=== PATIENT | female | born 1945 | race Caucasian/White ===

== ENCOUNTER 2016-04-29 11:03 | Emergency (ER) | payer MEDICARE ==
[2016-04-29 11:21] VITALS: BP 155/71
[2016-04-29] MEDS ORDERED: Albuterol 2.5 MG/3 ML NEB.SOL* (0.083%) INH ONE (11:58)
[2016-04-29] MEDS ORDERED: Ipratropium 0.5MG/2.5ML NEB* 0.5 MG/2.5 ML NEB.SOLN INH ONE (11:58)
--- NOTE | 2016-04-29 12:08 | UC ---
Respiratory Complaint HPI - HPI Summary HPI Summary: Chest tightness, wheezing, difficulty breathing, and cough since 3 nights ago. Was seen here 04/04/16, dx with bronchitis and given albuterol inhaler and guaifen AC by this author. Reports she used up the inhaler and cough med. No hx of asthma, COPD, or respiratory hospitalizations. Denies nasal congestion, ST, or fever. - History of Current Complaint Chief Complaint: UCRespiratory Stated Complaint: RESP COMPLAINT Time Seen by Provider: 04/29/16 11:50 Hx Obtained From: Patient ?: No Onset/Duration: Gradual Onset, Lasting Days Timing: Constant Severity Initially: Mild Severity Currently: Moderate Character: Cough: Nonproductive Aggravating Factors: Deep Breaths, Recumbent Position Alleviating Factors: Upright Position Associated Signs And Symptoms: Positive: Dyspnea, Wheezing - Allergies/Home Medications Allergies/Adverse Reactions: Allergies Allergy/AdvReac Type Severity Reaction Status Date / Time Levofloxacin [From Levaquin] Allergy Severe Anaphylatic Verified 04/04/16 18:16 Shock Sulfa Drugs Allergy Intermediate Hives Verified 04/04/16 18:16 Latex Allergy ITCHY Verified 04/04/16 18:16 PIMPLE LIKE RASH Levothyroxine Allergy Rash And Verified 04/04/16 18:16 Itching Home Medications: Home Medications Potassium Citrate (Alkalinizer [Urocit-K 15] 04/29/16 [History] PMH/Surg Hx/FS Hx/Imm Hx Endocrine History Of: Reports: Thyroid Disease Denies: Diabetes Cardiovascular History Of: Reports: Hypertension Respiratory History Of: Reports: Pulmonary Embolism - POST OP AFTER SHOULDER REPLACEMENT 2012 GI/ History Of: Reports: Kidney Stones - BILAT, Renal Disease - Kidney stones x 3 Neurological History Of: Reports: Seizures, Migraine Psychological History Of: Denies: Anxiety, Depression Cancer History Of: Denies: Breast Cancer - Surgical History Surgical History: Yes Surgery Procedure, Year, and Place: Hysterectomy September 2014, 1970 R eye cataract removed, 1989 L eye cataract removed, bilateral knee replacements, R shoulder replacement, 2011 cholecystectomy, plate/screws in R elbow, kidney stone treatment x 3 - Family History Known Family History: Positive: Cardiac Disease, Hypertension - Social History Lives: With Family Alcohol Use: Rare Alcohol Amount: 3-4 PER YEAR Substance Use Type: None Smoking Status (MU): Never Smoked Tobacco Have You Smoked in the Last Year: No - Immunization History Most Recent Influenza Vaccination: fall 2015 Most Recent Tetanus Shot: 2012 Most Recent Pneumonia Vaccination: 08/2011 Review of Systems Constitutional: Negative Skin: Negative Eyes: Negative ENT: Negative Respiratory: Shortness Of Breath - wheezing, Cough Cardiovascular: Negative Gastrointestinal: Negative Genitourinary: Negative Motor: Negative Neurovascular: Negative Musculoskeletal: Negative Neurological: Negative Psychological: Negative All Other Systems Reviewed And Are Negative: Yes Physical Exam Triage Information Reviewed: Yes Appearance: No Pain Distress, Obese Vital Signs: Initial Vital Signs Temp 98.4 F 04/29/16 11:18 Pulse 73 04/29/16 11:18 Resp 18 04/29/16 11:18 BP 155/71 04/29/16 11:18 Pulse Ox 98 04/29/16 11:18 Vital Signs Reviewed: Yes Eye Exam: Normal Eyes: Positive: Conjunctiva Clear ENT Exam: Normal ENT: Positive: Normal ENT inspection, Hearing grossly normal, Pharynx normal, TMs normal Dental Exam: Normal Neck exam: Normal Neck: Positive: Supple, Nontender, No Lymphadenopathy Respiratory: Positive: Respiratory distress - mild, worsened with exertion, Wheezing Cardiovascular Exam: Normal Cardiovascular: Positive: RRR, No Murmur Musculoskeletal Exam: Normal Neurological Exam: Normal Psychological Exam: Normal Skin Exam: Normal UC Diagnostic Evaluation - Laboratory O2 Sat by Pulse Oximetry: 98 Re-Evaluation - Re-Evaluation First Eval Re-Evaluation Time: 12:26 Change: Improved - wheezing diminished, improved air movement, pt reports some relief. Respiratory Course/Dx - Differential Dx/Diagnosis Provider Diagnoses: bronchospasm Discharge - Discharge Plan Condition: Stable Disposition: HOME Prescriptions: Albuterol HFA INHALER* [Ventolin HFA Inhaler*] 1 - 2 puff INH Q4H PRN #1 mdi PRN Reason: wheeze, cough Fluticasone HFA 110 mcg(NF) [Flovent HFA 110 mcg(NF)] 2 puff INH BID #2 mdi Guaifenesin-Codeine [Guaiatussin AC] 5 - 10 ml PO Q6H #120 ml MDD 40mL predniSONE TAB* [Deltasone TAB*] 50 mg PO DAILY #5 tab Patient Education Materials: Bronchospasm (ED) Referrals: Popeye Rojo MD [Primary Care Provider] - 1 Week Additional Instructions: Use the albuterol as needed, but keep using the flovent twice daily until you see your primary care provider (he may keep you on it for 3-4 weeks). Come back if you are having worsening breathing symptoms. Call or return if you develop increasing fever, shortness of breath, chest pain , bloody sputum, or otherwise worsen. If you have not improved at all after several days, contact your primary care physician or return here. INHALED BRONCHODILATORS: You have received a prescription for an inhaled bronchodilator -- a medication which stimulates the airways in the lung to dilate. This improves the flow of air in asthma, bronchitis, and emphysema. These medicines have some similarity to adrenaline, and can cause similar side effects: shakiness, racing heart, and a sense of nervousness. These side effects can be reduced with the use of a spacer and usually decrease with time. Use 1-2 puffs up to every 4 hours as needed for wheezing or tightness in your chest. It may be helpful to use preventatively, such as before bedtime or before going outside into cold air. IF YOU FIND THAT YOU ARE CONSISTENTLY NEEDING THE INHALER MORE THAN 6 TIMES PER DAY, PLEASE CALL OR RETURN FOR FURTHER EVALUATION. COUGH-SUPPRESSANT & EXPECTORANT MEDICATION FOR SLEEPING ONLY: You are to use a cough medication as needed for relief of NIGHTTIME/ BEDTIME symptoms. This medicine is a combination of an expectorant (to make the mucous thinner and more easily "coughed up") and a cough suppressant (to reduce the frequency of coughing). The cough-suppressant medicine is related to narcotics. You may experience mild nausea and sleepiness. Some patients who are very sensitive to narcotics may have stomach pain from this medicine. Taking the medicine with food reduces these side effects. Do not drive or work with machinery until you know how this medicine affects you. The expectorant should have no side effects. Call your doctor if you develop shortness of breath, hives, rash, itching, lightheadedness, or severe nausea and vomiting. CORTICOSTEROID MEDICATION: You have been given a medicine of the cortisone class. This medication is used to control inflammation or allergy. It is usually only given for a short period of time, until the acute process subsides. There are usually no side effects from short-term use of cortisone-like medications. Some persons feel an increased sense of well-being and are not sleepy at bedtime. Long-term use of cortisone medications is best avoided, unless required for a severe condition. If your condition does not remit, or relapses after the course of corticosteroid medication, you should consult your physician. Contact the physician if you develop lightheadedness, black or tarry stools , swelling of the legs, or significant rapid change in weight.
== END 2016-04-29 12:36 | disposition home or self-care (01) ==
LOC: UCEAST 11:03
DX: J98.01 Acute bronchospasm (principal); Z88.1 Allergy status to other antibiotic agents; Z88.2 Allergy status to sulfonamides; Z88.8 Allergy status to other drugs, medicaments and biological substances
CPT/HCPCS: 99212; G0463; J7644

== ENCOUNTER 2016-05-03 16:43 | Emergency (ER) | payer MEDICARE ==
[2016-05-03 17:09] VITALS: BP 190/100
[2016-05-03] MEDS ORDERED: Albuterol 2.5 MG/3 ML NEB.SOL* (0.083%) INH ONE (17:40)
[2016-05-03] MEDS ORDERED: Ipratropium 0.5MG/2.5ML NEB* 0.5 MG/2.5 ML NEB.SOLN INH ONE (17:40)
--- NOTE | 2016-05-03 17:47 | RAD ---
INDICATION: Cough and wheezing COMPARISON: Chest x-ray August 18, 2012 TECHNIQUE: PA and lateral dual-energy views were obtained. FINDINGS: Bones/Soft Tissues: There are no acute bony findings. There is kyphosis. Cardiomediastinal: The cardiomediastinal silhouette is normal. Lungs: There are no infiltrates. Pleura: There are no pleural effusions. Other: None IMPRESSION: NO ACTIVE DISEASE.
--- NOTE | 2016-05-03 18:39 | UC ---
Respiratory Complaint HPI - HPI Summary HPI Summary: 70 yo female with cough/dyspnea x about 4 weeks no improvement with MDI/steroids/had round of antibiotics late DEC hx bronchitis hx PE - History of Current Complaint Chief Complaint: UCRespiratory Stated Complaint: CHEST CONGESTION Time Seen by Provider: 05/03/16 17:17 Hx Obtained From: Patient Onset/Duration: Gradual Onset, Lasting Weeks Timing: Constant Severity Initially: Mild Severity Currently: Moderate Pain Intensity: 4 Pain Scale Used: 0-10 Numeric Character: Cough: Nonproductive Aggravating Factors: Nothing Alleviating Factors: Nothing Associated Signs And Symptoms: Positive: Wheezing, Edema - Risk Factors Pulmonary Embolism Risk Factors: Previous PE - Allergies/Home Medications Allergies/Adverse Reactions: Allergies Allergy/AdvReac Type Severity Reaction Status Date / Time Levofloxacin [From Levaquin] Allergy Severe Anaphylatic Verified 04/04/16 18:16 Shock Sulfa Drugs Allergy Intermediate Hives Verified 04/04/16 18:16 Latex Allergy ITCHY Verified 04/04/16 18:16 PIMPLE LIKE RASH Levothyroxine Allergy Rash And Verified 04/04/16 18:16 Itching PMH/Surg Hx/FS Hx/Imm Hx Endocrine History Of: Reports: Thyroid Disease Denies: Diabetes Cardiovascular History Of: Reports: Hypertension Denies: Cardiac Disorders Respiratory History Of: Reports: Bronchitis, Pulmonary Embolism - POST OP AFTER SHOULDER REPLACEMENT 2012 Denies: COPD, Asthma GI/ History Of: Reports: Kidney Stones - BILAT, Renal Disease - Kidney stones x 3 Denies: Ulcer Neurological History Of: Reports: Seizures, Migraine Psychological History Of: Denies: Anxiety, Depression Cancer History Of: Denies: Breast Cancer - Surgical History Surgical History: Yes Surgery Procedure, Year, and Place: Hysterectomy September 2014, 1970 R eye cataract removed, 1989 L eye cataract removed, bilateral knee replacements, R shoulder replacement, 2011 cholecystectomy, plate/screws in R elbow, kidney stone treatment x 3 - Family History Known Family History: Positive: Cardiac Disease, Hypertension - Social History Alcohol Use: Rare Alcohol Amount: 3-4 PER YEAR Substance Use Type: None Smoking Status (MU): Never Smoked Tobacco Have You Smoked in the Last Year: No - Immunization History Most Recent Influenza Vaccination: fall 2015 Most Recent Tetanus Shot: 2012 Most Recent Pneumonia Vaccination: 08/2011 Review of Systems Constitutional: Negative Skin: Negative Eyes: Negative ENT: Negative Respiratory: Shortness Of Breath, Cough Cardiovascular: Negative Gastrointestinal: Negative Genitourinary: Negative Motor: Negative Neurovascular: Negative Musculoskeletal: Negative Neurological: Negative Psychological: Negative All Other Systems Reviewed And Are Negative: Yes Physical Exam Triage Information Reviewed: Yes Appearance: Obese Vital Signs: Initial Vital Signs Temp 98.1 F 05/03/16 17:03 Pulse 83 05/03/16 17:03 Resp 24 05/03/16 17:03 BP 190/100 05/03/16 17:03 Pulse Ox 97 05/03/16 17:03 Vital Signs Reviewed: Yes Eyes: Positive: Conjunctiva Clear ENT: Positive: Hearing grossly normal. Negative: Nasal congestion, Nasal drainage, Tonsillar exudate, Trismus, Muffled/hoarse voice Neck: Positive: Supple Respiratory: Positive: Respiratory distress, Wheezing Cardiovascular: Positive: RRR, No Murmur Musculoskeletal: Positive: Edema @ - r>l Neurological: Positive: Alert Psychological Exam: Normal UC Diagnostic Evaluation - Laboratory O2 Sat by Pulse Oximetry: 97 - normal - EKG Cardiac Rate: NL Cardiac Rhythm: Sinus: Normal Ectopy: None ST Segment: Non-Specific Respiratory Course/Dx - Course Course Of Treatment: pt unchanged after neb- she refuses to go to the ER for further evaluation. she is aware that she may have a PE despite being anticoagulated. She is sure she will get well with antibiotics. declines further nebs and steroids - Differential Dx/Diagnosis Provider Diagnoses: Dyspnea of uncertain cause. left AMA Discharge - Discharge Plan Condition: Guarded Disposition: AGAINST MEDICAL ADVICE Prescriptions: Amoxicillin/Clavulanate TAB* [Augmentin TAB 875*] 875 mg PO BID #20 tab Patient Education Materials: Dyspnea (ED) Referrals: Popeye Rojo MD [Primary Care Provider] - As Soon As Possible Additional Instructions: to ER for worsening symptoms
[2016-05-03] MEDS ORDERED: Amoxicillin/Clavulanate TAB* 875 MG PO ONE (18:48)
== END 2016-05-03 19:07 | disposition left against medical advice (07) ==
LOC: UCEAST 16:43
DX: R06.00 Dyspnea, unspecified (principal); R05 Cough; Z88.2 Allergy status to sulfonamides; Z88.8 Allergy status to other drugs, medicaments and biological substances
CPT/HCPCS: 71020; 93005; 99213; A9270-GY; G0463; J7644

== ENCOUNTER 2016-05-05 11:24 | Observation (INO) | payer MEDICARE ==
[2016-05-05 11:56] LABS: Hematocrit 42 % (35-47); Hemoglobin 13.8 g/dl (12.0-16.0); Mean Corpuscular HGB Conc 33 g/dl (31-36); Mean Corpuscular Hemoglobin 29 pg (27-31); Mean Corpuscular Volume 89 fL (80-97); Mean Platelet Volume 9 um3 (7.4-10.4); Red Blood Count 4.73 10^6/ul (4.0-5.4); Red Cell Distribution Width 15 % (10.5-15); White Blood Count 7.3 10^3/ul (3.5-10.8)
[2016-05-05] MEDS ORDERED: Albuterol/Ipratropium NEB.SOL* Albuterol 2.5 MG/Ipratropium 0.5 MG 3 ML INH ONE ×2 (11:56→12:43)
[2016-05-05 12:19] LABS: Albumin 3.6 g/dL (3.2-5.2); BUN/Creatinine Ratio 24.5 (8-20); Calcium 8.8 mg/dL (8.6-10.3); EGFR African American 72.4 (>60); EGFR Non-African American 56.3 (>60); Globulin 3.1 g/dL (2-4); Potassium 3.3 mmol/L (3.5-5.0); Total Bilirubin 0.5 mg/dL (0.2-1.0); Total Protein 6.7 g/dL (6.4-8.9)
[2016-05-05] MEDS ORDERED: NS 0.9% 1000 ML* 1,000 ML IV ONE (12:45)
[2016-05-05 12:54] LABS: C Reactive Protein 8.9 mg/L (< 5.00)
[2016-05-05 13:04] LABS: Magnesium 1.9 mg/dL (1.9-2.7)
--- NOTE | 2016-05-05 13:12 | ED ---
Mike Maki Claudia, scribed for Sonia Wyatt MD on 05/05/16 at 1200 . Respiratory - HPI Summary HPI Summary: 70 year old female presents to the ED with respiratory distress. Pt notes Sx gradual worsening over the past few weeks. She was Dx with bronchitis by [facility] in Mar 2016 and has been there twice since then with a Dx of inflammation of the lungs. PT has taken prednisone and is currently taking augmentin and an inhaler for Sx with no change in Sx. Pt notes associated Sx as respiratory distress, productive cough( with blood sputum), chest tightness, but denies any abd pain, N/V/D. Pt reports taking her RX for HTN this am. - History of Current Complaint Stated Complaint: RESP DISTRESS Time Seen by Provider: 05/05/16 11:29 Hx Obtained From: Patient Onset/Duration: Gradual Onset, Worse Since - past few weeks Timing: Constant Character: Wheezing, Cough (Productive), Dyspnea at Rest Sputum Amount: Small Sputum Color: Red (Blood) Associated Signs and Symptoms: SOB, Chest Pain, Wheezing, Dyspnea - Allergy/Home Medications Allergies/Adverse Reactions: Allergies Allergy/AdvReac Type Severity Reaction Status Date / Time Levofloxacin [From Levaquin] Allergy Severe Anaphylatic Verified 04/04/16 18:16 Shock Sulfa Drugs Allergy Intermediate Hives Verified 04/04/16 18:16 Latex Allergy ITCHY Verified 04/04/16 18:16 PIMPLE LIKE RASH Levothyroxine Allergy Rash And Verified 04/04/16 18:16 Itching PMH/Surg Hx/FS Hx/Imm Hx Previously Healthy: Yes Endocrine/Hematology History: Reports: Hx Thyroid Disease Denies: Hx Diabetes Cardiovascular History: Reports: Hx Coronary Artery Disease, Hx Hypercholesterolemia, Hx Hypertension, Hx Peripheral Vascular Disease, Other Cardiovascular Problems/Disorders - cardiac cath Respiratory History: Reports: Hx Pulmonary Embolism - POST OP AFTER SHOULDER REPLACEMENT 2012 Denies: Hx Asthma, Hx Chronic Obstructive Pulmonary Disease (COPD) GI History: Denies: Hx Ulcer, Other GI Disorders History: Reports: Hx Kidney Infection, Hx Kidney Stones - BILAT, Hx Renal Disease - Kidney stones x 3, Other Problems/Disorders - Kidney stones July 2011 Musculoskeletal History: Reports: Hx Arthritis, Other Musculoskeletal History - Bilateral knee replacements, R shoulder replacement, fractured elbow Sensory History: Reports: Hx Cataracts, Hx Contacts or Glasses, Hx Glaucoma, Hx Legally Blind, Hx Vision Problem - Pt is legally blind, Hx Hearing Aid, Hx Hearing Problem, Other Sensory Impairments Opthamlomology History: Reports: Hx Cataracts, Hx Contacts or Glasses, Hx Glaucoma, Hx Legally Blind, Hx Vision Problem - Pt is legally blind, Other Sensory Impairments Neurological History: Reports: Hx Migraine, Hx Seizures, Other Neuro Impairments /Disorders - Hx seizures, none recently Psychiatric History: Denies: Hx Anxiety, Hx Depression - Cancer History Hx Chemotherapy: No Hx Radiation Therapy: No - Surgical History Surgery Procedure, Year, and Place: Hysterectomy September 2014, 1970 R eye cataract removed, 1989 L eye cataract removed, bilateral knee replacements, R shoulder replacement, 2011 cholecystectomy, plate/screws in R elbow, kidney stone treatment x 3 Hx Anesthesia Reactions: Yes - GFDS Infectious Disease History: Denies: Hx Hepatitis, Hx Human Immunodeficiency Virus (HIV), History Other Infectious Disease, Traveled Outside the [place] in Last 30 Days - Family History Known Family History: Positive: Cardiac Disease, Hypertension - Social History Occupation: Retired Lives: With Family Alcohol Use: Rare Alcohol Amount: 3-4 PER YEAR Substance Use Type: Reports: None Hx Tobacco Use: No Smoking Status (MU): Never Smoked Tobacco Have You Smoked in the Last Year: No Review of Systems Constitutional: Negative Negative: Fever Eyes: Negative ENT: Negative Positive: Chest Pain - chest pressure bilaterally Positive: Shortness Of Breath, Cough Negative: Abdominal Pain, Vomiting, Diarrhea, Nausea Genitourinary: Negative Musculoskeletal: Negative Skin: Negative Neurological: Negative Psychological: Normal All Other Systems Reviewed And Are Negative: Yes Physical Exam Triage Information Reviewed: Yes Vital Signs On Initial Exam: Initial Vitals Pulse Pulse Ox 84 98 05/05/16 11:37 05/05/16 11:37 Vital Signs Reviewed: Yes Appearance: Positive: Well-Appearing, No Pain Distress Skin: Positive: Warm, Skin Color Reflects Adequate Perfusion, Dry Eyes: Positive: EOMI, ZANDER ENT: Positive: Pharynx normal, TMs normal Neck: Positive: Nontender Respiratory/Lung Sounds: Positive: Wheezes - expiratory wheezes throughout, Other - respiratory distress. Negative: Rales, Rhonchi Cardiovascular: Positive: RRR. Negative: Murmur, Rub Abdomen Description: Positive: Nontender, Soft Bowel Sounds: Positive: Present Musculoskeletal: Positive: Strength/ROM Intact. Negative: Edema Left, Edema Right Neurological: Positive: Sensory/Motor Intact, Alert, Oriented to Person Place, Time, CN Intact II-III Psychiatric: Positive: Affect/Mood Appropriate Diagnostics - Vital Signs Vital Signs Temp Pulse Resp BP Pulse Ox 05/05/16 12:50 147/88 05/05/16 12:00 75 17 99 05/05/16 11:51 98.0 F 87 24 186/67 99 05/05/16 11:39 88 19 186/67 98 05/05/16 11:37 84 98 - Laboratory Lab Results: Lab Results 05/05/16 05/05/16 05/05/16 Range/Units 11:45 11:45 11:45 WBC 7.3 (3.5-10.8) 10^3/ul RBC 4.73 (4.0-5.4) 10^6/ul Hgb 13.8 (12.0-16.0) g/dl Hct 42 (35-47) % MCV 89 (80-97) fL MCH 29 (27-31) pg MCHC 33 (31-36) g/dl RDW 15 (10.5-15) % Plt Count 184 (150-450) 10^3/ul MPV 9 (7.4-10.4) um3 Neut % (Auto) 71.4 (38-83) % Lymph % (Auto) 20.3 L (25-47) % [place] % (Auto) 6.6 (1-9) % Eos % (Auto) 1.3 (0-6) % Baso % (Auto) 0.4 (0-2) % Absolute Neuts (auto) 5.2 (1.5-7.7) 10^3/ul Absolute Lymphs (auto) 1.5 (1.0-4.8) 10^3/ul Absolute Monos (auto) 0.5 (0-0.8) 10^3/ul Absolute Eos (auto) 0.1 (0-0.6) 10^3/ul Absolute Basos (auto) 0 (0-0.2) 10^3/ul Absolute Nucleated RBC 0 10^3/ul Nucleated RBC % 0 Sodium 140 (133-145) mmol/L Potassium 3.3 L (3.5-5.0) mmol/L Chloride 109 (101-111) mmol/L Carbon Dioxide 24 (22-32) mmol/L Anion Gap 7 (2-11) mmol/L BUN 24 (6-24) mg/dL Creatinine 0.98 H (0.51-0.95) mg/dL Est GFR ( Amer) 72.4 (>60) Est GFR (Non-Af Amer) 56.3 (>60) BUN/Creatinine Ratio 24.5 H (8-20) Glucose 164 H (70-100) mg/dL Lactic Acid 1.2 (0.5-2.0) mmol/L Calcium 8.8 (8.6-10.3) mg/dL Magnesium 1.9 (1.9-2.7) mg/dL Total Bilirubin 0.50 (0.2-1.0) mg/dL AST 14 (13-39) U/L ALT 21 (7-52) U/L Alkaline Phosphatase 64 (34-104) U/L Troponin I 0.00 (<0.04) ng/mL C-Reactive Protein 8.90 H (< 5.00) mg/L B-Natriuretic Peptide ( - 100) pg/mL Total Protein 6.7 (6.4-8.9) g/dL Albumin 3.6 (3.2-5.2) g/dL Globulin 3.1 (2-4) g/dL Albumin/Globulin Ratio 1.2 (1-3) 05/05/16 Range/Units 11:45 WBC (3.5-10.8) 10^3/ul RBC (4.0-5.4) 10^6/ul Hgb (12.0-16.0) g/dl Hct (35-47) % MCV (80-97) fL MCH (27-31) pg MCHC (31-36) g/dl RDW (10.5-15) % Plt Count (150-450) 10^3/ul MPV (7.4-10.4) um3 Neut % (Auto) (38-83) % Lymph % (Auto) (25-47) % [place] % (Auto) (1-9) % Eos % (Auto) (0-6) % Baso % (Auto) (0-2) % Absolute Neuts (auto) (1.5-7.7) 10^3/ul Absolute Lymphs (auto) (1.0-4.8) 10^3/ul Absolute Monos (auto) (0-0.8) 10^3/ul Absolute Eos (auto) (0-0.6) 10^3/ul Absolute Basos (auto) (0-0.2) 10^3/ul Absolute Nucleated RBC 10^3/ul Nucleated RBC % Sodium (133-145) mmol/L Potassium (3.5-5.0) mmol/L Chloride (101-111) mmol/L Carbon Dioxide (22-32) mmol/L Anion Gap (2-11) mmol/L BUN (6-24) mg/dL Creatinine (0.51-0.95) mg/dL Est GFR ( Amer) (>60) Est GFR (Non-Af Amer) (>60) BUN/Creatinine Ratio (8-20) Glucose (70-100) mg/dL Lactic Acid (0.5-2.0) mmol/L Calcium (8.6-10.3) mg/dL Magnesium (1.9-2.7) mg/dL Total Bilirubin (0.2-1.0) mg/dL AST (13-39) U/L ALT (7-52) U/L Alkaline Phosphatase (34-104) U/L Troponin I (<0.04) ng/mL C-Reactive Protein (< 5.00) mg/L B-Natriuretic Peptide 78 ( - 100) pg/mL Total Protein (6.4-8.9) g/dL Albumin (3.2-5.2) g/dL Globulin (2-4) g/dL Albumin/Globulin Ratio (1-3) Result Diagrams: 05/05/16 11:45 05/05/16 11:45 Lab Statement: Any lab studies that have been ordered have been reviewed, and results considered in the medical decision making process. - EKG 11:35 Cardiac Rate: NL EKG Rhythm: Sinus Rhythm EKG Interpretation: No ST elevation Disposition - Course Course Of Treatment: 70 yo female with worsening course of sob, labs and xrays normal, PE is in the differential, ddimer is pending but pt can not get a cta today she will be observed by the hospitalists overnight - Diagnoses Provider Diagnoses: Dyspnea - Physician Notifications Discussed Care Of Patient With: Discussed care of patient with Dr. Bryant whom will admit to [facility] Time Discussed With Above Provider: 12:49 Discharge - Discharge Plan Condition: Stable Disposition: ADMITTED TO [facility] Referrals: Popeye Rojo MD [Primary Care Provider] - The documentation as recorded by the Mike whyet Claudia accurately reflects the service I personally performed and the decisions made by me, Sonia Wyatt MD.
--- NOTE | 2016-05-05 14:46 | RAD ---
Indication: Shortness of breath. 2 views of the chest including dual energy PA views demonstrates no mediastinal shift. When compared to previous exam of May 03, 2016 there is mild interstitial prominence is noted. No pleural fluid is identified. This likely represents mild vascular congestion. The heart is at the limits of normal in size. IMPRESSION: Mild vascular congestion without evidence of active cardiopulmonary disease.
[2016-05-05] MEDS ORDERED: Potassium Chlor TAB* 20 MEQ TAB.ER PO ONE (15:26)
[2016-05-05] MEDS ORDERED: Albuterol HFA INHALER* 8 gm MDI INH PRN (15:33)
[2016-05-05] MEDS ORDERED: Albuterol/Ipratropium NEB.SOL* Albuterol 2.5 MG/Ipratropium 0.5 MG 3 ML INH SCH (16:00)
--- NOTE | 2016-05-05 16:03 | RAD ---
Indication: Shortness of breath. CT of the chest performed without IV contrast. Coronal and sagittal reconstructed images were obtained. There is an aberrant right subclavian artery noted. Small mediastinal lymph nodes are noted with AP window lymph nodes measuring up to 11 mm. Precarinal lymph nodes are noted. No hilar adenopathy is noted. The heart is of normal size without evidence of pericardial effusion. The trachea and major bronchi appear patent. Lung deleon demonstrate no evidence of alveolar consolidation. No pleural fluid is identified. No focal nodules identified. The visualized abdominal organs are unremarkable. IMPRESSION: Aberrant right subclavian artery. No evidence of pneumonia is noted. Small mediastinal lymph nodes are noted.
--- NOTE | 2016-05-05 18:02 | PN ---
Hospitalist Progress Note Pt positive for influenza A. Will start Tamiflu.
[2016-05-05] MEDS: Albuterol/Ipratropium NEB.SOL* Albuterol 2.5 MG/Ipratropium 0.5 MG 3 ML INH SCH (19:27)
[2016-05-05] MEDS: Mometasone/Formoter 200/5 MDI INH SCH (19:27)
[2016-05-05] MEDS: Oseltamivir CAP* 75 MG PO SCH (20:35)
[2016-05-05] MEDS ORDERED: Rivaroxaban TAB(*) 20 MG TAB PO SCH (21:00)
[2016-05-05] MEDS: Nystatin TOP POWDER* 15 GM BTL TOPICAL SCH (21:09)
--- NOTE | 2016-05-05 22:30 | HP ---
HISTORY AND PHYSICAL: DATE OF ADMISSION: 05/05/16 PRIMARY CARE PROVIDER: Dr. Popeye Rojo. ATTENDING PHYSICIAN: Dr. Nydia Bryant *(dictated by Lidna Kee NP) CHIEF COMPLAINT: Shortness of breath. HISTORY OF PRESENT ILLNESS: Ms. Zhao is a 70-year-old female with past medical history significant for pulmonary embolism, coronary artery disease, hyperlipidemia, and hypertension, who presents to the emergency room with progressive shortness of breath. The patient states that she initially started not feeling well with a sore throat and cold symptoms on 03/19/16. At the same time, the patient's was also ill. The patient continued to not feel well, presented to the [facility] on 04/04/16, at which time she was diagnosed with acute bronchitis and was started on azithromycin and given albuterol inhaler and started on guaifenesin with codeine. The [facility], at which time she was diagnosed with bronchospasms and was given a Flovent inhaler and albuterol inhaler and continued on guaifenesin with codeine. The patient continued to feel poorly. She has been unable to get into her primary care doctor's office. She was seen [facility] on 05[facility]16 with cough and shortness of breath for approximately a month. She has had no improvement with inhalers, steroids, and a round of antibiotics. At that time, it was felt that the patient had a dyspnea of uncertain cause and the patient left against medical advice after she was referred to the emergency room for evaluation for possible pulmonary embolism. The patient was given a prescription for Augmentin at that time. The patient denies fever, chills. She reports a midsternal chest tightness, a frequent nonproductive cough although she occasionally brings up a small amount of mucus. The patient has shortness of breath that is worse with exertion and lying flat. The patient denies any GI symptoms such as nausea, vomiting, diarrhea. The patient feels that over time, her dyspnea has not improved and in fact is getting worse. Due to concerns, the patient presented to the emergency room today for further evaluation of her symptoms. While in the emergency room, the patient had a chest x-ray showing mild vascular congestion without evidence of active cardiopulmonary disease. The patient received DuoNebs and 1 L of IV normal saline. Due to concern of possible PE, the hospitalists were asked to evaluate the patient for admission to pre-treat her for a CT of her chest. PAST MEDICAL HISTORY: 1. Pulmonary embolism. 2. Coronary artery disease. 3. Hyperlipidemia. 4. Hypertension. 5. Peripheral vascular disease. 6. Kidney stones. 7. Seizure. 8. Migraines. 9. Depression. 10. Type 2 diabetes, diet controlled. 11. Hypothyroidism. 12. 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 13. Hearing impairment. PAST SURGICAL HISTORY: 1. Status post right shoulder surgery. 2. Status post hysterectomy. 3. Status post bilateral cataract extractions. 4. Status post bilateral total knee replacements. 5. Status post multiple cystoscopies and ureteral stent placement. 6. Status post ORIF of her right elbow. 7. Status post cholecystectomy. 8. Status post cardiac catheterization in 2011 without stent placement. HOME MEDICATIONS: Include: 1. Topamax 25 mg oral every morning. 2. Xarelto 20 mg oral daily at bedtime. 3. Potassium citrate 15 mEq oral 3 times daily. 4. Multivitamin 1 tablet oral daily. 5. Lisinopril 5 mg oral every morning. 6. Levothyroxine 25 mcg oral daily. 7. Flovent HFA 2 puffs inhalation twice daily. 8. Bumex 1 mg oral every morning as needed for leg swelling. 9. Alphagan P 0.15% 1 drop to both eyes twice daily. 10. Atorvastatin 20 mg oral every morning. 11. Atenolol 50 mg oral every morning. 12. Aspirin 81 mg oral every morning. 13. Augmentin 875 mg oral twice daily. 16. Albuterol HFA inhaler 1 to 2 puffs inhalation every 4 hours as needed for shortness of breath or wheeze. ALLERGIES: 1. LEVAQUIN - anaphylactic reaction. 2. SULFA. 3. LATEX. 4. LEVOTHYROXINE - cannot tolerate low doses. FAMILY HISTORY: The patient denies any family history of coronary artery disease. The patient's father has a history of diabetes mellitus and leukemia. SOCIAL HISTORY: The patient denies tobacco or recreational drug use. She rarely drinks alcoholic beverages. 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 She is . Her , Bernabe Zhao, will be her surrogate decision maker in the event that she is unable to make decisions for herself. REVIEW OF SYSTEMS: I performed a 14-point review of systems. All the pertinent positives and negatives are mentioned in the history of present illness. The remaining review of systems are negative. PHYSICAL EXAMINATION GENERAL APPEARANCE: The patient is alert, pleasant, appears to be in no acute distress. VITAL SIGNS: Temperature 98.0, heart rate 74, respiratory rate 15, O2 sat 100% , blood pressure 168/78. HEENT: Normocephalic, atraumatic. Pupils are equal and reactive to light. Extraocular movements are intact. NECK: Supple. There is no lymphadenopathy noted. RESPIRATORY: There is no accessory muscle use. The lungs have faint expiratory wheezing anteriorly and scattered rhonchi posteriorly. CARDIOVASCULAR: Regular rate and rhythm. S1, S2 present. There is no murmurs, rubs, or gallops heard. ABDOMEN: Large, soft, and nontender. There are bowel sounds present x4. EXTREMITIES: There is +1 bilateral lower extremity edema. DP and PT pulses are 2+ and symmetric. MUSCULOSKELETAL: There is no clubbing or cyanosis noted. The patient exhibits good strength in all extremities. NEUROLOGICAL: The patient is alert and oriented x4. Cranial nerves II through XII are grossly intact. PSYCHOLOGICAL: The patient is calm and cooperative. SKIN: There is no rashes or abnormalities noted. DIAGNOSTIC STUDIES/LABORATORY DATA: Sodium 140, potassium 3.3, chloride 104, CO2 24, BUN 24, creatinine 0.98, glucose 164. Troponin 0.00. C-reactive protein 8.9. Lactic acid 1.2. White blood cell count 7.3, hemoglobin 13.8, hematocrit 42, and platelet count 184. EKG shows a sinus rhythm with a rate of 83. There is no acute signs of ischemia. This EKG is similar to previous EKG from 05/03/16. Chest x-ray from today. Radiologist's impression: Mild vascular congestion without evidence of active cardiopulmonary disease. IMPRESSION: Ms. Zhao is a 70-year-old female with past medical history significant for pulmonary embolism, coronary artery disease, hypertension, recent bronchitis, and inflammatory airway, who presents to the emergency room with progressive shortness of breath and dyspnea on exertion. She will be admitted as an observation for shortness of breath. ASSESSMENT: 1. Shortness of breath. I suspect this is related to active airway disease. I have placed the patient on [id number] nebulizers. I do not feel that she needs systemic steroids at this time, but we will start her on Dulera for inhaled steroids. We will get a plain chest CT to get a better evaluation to see if the patient possibly has an underlying pneumonia that was not seen on chest x-ray. At this time, the patient is afebrile, has no leukocytosis. We will hold on starting or continuing any antibiotics. We will check a flu swab at this time. The patient will be continued on supplemental oxygen as needed. In the differential is included pulmonary embolism. The patient has a D-dimer of less than 200. We will hold on any further workup as I do not feel that the patient's shortness of breath is related to a pulmonary embolism. 2. Elevated creatinine. The patient's creatinine appears to be at her baseline. 3. Hypokalemia. The patient will receive potassium supplements today. We will check a magnesium and replace if indicated. 4. Hypertension. The patient will be continued on her home lisinopril. 5. Hyperlipidemia. The patient will be continued on her home Lipitor. 6. History of seizures. The patient will be continued on her home Topamax and have seizure precautions. 7. Type 2 diabetes. The patient is diet controlled at home. We will check her fingersticks. At this time, we will just monitor her fingersticks. If her fingersticks are elevated, we will start a lispro sliding scale. 8. Glaucoma. The patient will be continued on her Alphagan eyedrops. 9. History of coronary artery disease. The patient will be continued on her home aspirin, atenolol, and statin. 10. History of pulmonary embolism. The patient will be continued on her home Xarelto. 11. Hypothyroidism. The patient will be continued on her home levothyroxine. 12. Fluids, electrolytes, and nutrition. The patient will be on a heart- healthy, consistent carbohydrate diet. 13. Code status. Full code. 14. DVT prophylaxis. The patient is at highest risk. She will be continued on her home Xarelto. 15. Disposition. Observation for shortness of breath, suspect related to reactive airway. TIME SPENT: The time for this admission was 60 minutes, 35 minutes was spent face- to-face with the patient and discussing medications, past medical history, and the events leading up to her arrival today and performing a physical examination. The case has been reviewed with the attending, Dr. Bryant, who agrees with the plan of care. Reviewed by REJI GOMEZ-Leonidas 05/08/161958 CC: Popeye Rojo MD* [id number]/[facility] #: [id number] MTDD
[2016-05-05] MEDS: CMCS:Brimonidine P 0.15%(NF) OPH SOL 5 ML BTL BOTH EYES SCH (23:32)
[2016-05-06] MEDS: Albuterol/Ipratropium NEB.SOL* Albuterol 2.5 MG/Ipratropium 0.5 MG 3 ML INH SCH ×3 (01:08→14:01)
[2016-05-06] MEDS ORDERED: Benzonatate CAP* 100 MG PO PRN (04:15)
[2016-05-06] MEDS ORDERED: Levothyroxine TAB* 25 MCG TAB PO SCH (06:00)
[2016-05-06 06:36] LABS: BUN/Creatinine Ratio 21.7 (8-20); Calcium 8.7 mg/dL (8.6-10.3); EGFR African American 77.8 (>60); EGFR Non-African American 60.5 (>60); Potassium 3.5 mmol/L (3.5-5.0)
[2016-05-06] MEDS: Mometasone/Formoter 200/5 MDI INH SCH (07:16)
[2016-05-06] MEDS ORDERED: Aspirin EC Low Dose* 81 MG TAB.EC PO SCH (09:00)
[2016-05-06] MEDS ORDERED: Topiramate TAB(*) 25 MG PO SCH (09:00)
[2016-05-06] MEDS ORDERED: Multivitamins/Minerals TAB PO SCH (09:00)
[2016-05-06] MEDS ORDERED: Atenolol TAB* 50 MG PO SCH (09:00)
[2016-05-06] MEDS ORDERED: Lisinopril TAB* 5 MG PO SCH (09:00)
[2016-05-06] MEDS ORDERED: Atorvastatin* 20 MG TAB PO SCH (09:00)
[2016-05-06] MEDS: Oseltamivir CAP* 75 MG PO SCH (10:19)
[2016-05-06] MEDS ORDERED: Acetaminophen TAB* 325 MG PO PRN (11:16)
[2016-05-06 11:37] VITALS: BP 154/79
[2016-05-06] MEDS: Nystatin TOP POWDER* 15 GM BTL TOPICAL SCH (11:54)
[2016-05-06] MEDS ORDERED: Sodium Chloride 2% OPTH.SOL* 15 ML BTL BOTH EYES SCH (12:30)
[2016-05-06] MEDS: CMCS:Brimonidine P 0.15%(NF) OPH SOL 5 ML BTL BOTH EYES SCH (14:36)
--- NOTE | 2016-05-06 15:08 | PN ---
Subjective Date of Service: 05/06/16 Interval History: patient reports she feels much much better. Denies SOB. continues to have a productive cough. No fever or chills. Reports good appetite. No N/V/D. Objective Active Medications: Acetaminophen (Tylenol Tab*) 650 mg PO Q4H PRN PRN Reason: pain/fever Last Admin: 05/06/16 11:54 Dose: 650 mg Albuterol (Ventolin Hfa Inhaler*) 2 puff INH Q4H PRN PRN Reason: wheeze, cough Albuterol/Ipratropium (Duoneb Neb.Ale*) 1 neb INH 0100,0700,1300,1900 [facility] Last Admin: 05/06/16 14:01 Dose: 1 neb Aspirin (Aspirin Ec Low Dose*) 81 mg PO [facility] Last Admin: 05/06/16 10:19 Dose: 81 mg Atenolol (Tenormin Tab*) 50 mg PO [facility] Last Admin: 05/06/16 10:19 Dose: 50 mg Atorvastatin Calcium (Lipitor*) 20 mg PO [facility] Last Admin: 05/06/16 10:19 Dose: 20 mg Benzonatate (Tessalon Cap*) 200 mg PO TID PRN PRN Reason: COUGH Last Admin: 05/06/16 05:37 Dose: 200 mg Brimonidine Tartrate (Alphagan P 0.15%(Nf)) 1 drop BOTH EYES BID [facility] Last Admin: 05/06/16 14:36 Dose: Not Given Levothyroxine Sodium (Synthroid Tab*) 25 mcg PO 0600 [facility] Last Admin: 05/06/16 05:37 Dose: 25 mcg Lisinopril (Prinivil Tab*) 5 mg PO [facility] Last Admin: 05/06/16 10:19 Dose: 5 mg Mometasone Furoate/Formoterol Fumar (Dulera 200/5 Mdi*) 2 puff INH BID [facility] Last Admin: 05/06/16 07:16 Dose: 2 puff Multivitamins/Minerals (Theragran/Minerals Tab*) 1 tab [facility] Last Admin: 05/06/16 10:19 Dose: 1 tab Nystatin (Nystatin Top Powder*) 1 applic TOPICAL BID [facility] Last Admin: 05/06/16 11:54 Dose: 1 applic Oseltamivir Phosphate (Tamiflu Cap*) 75 mg PO BID [facility] Stop: 05/10/16 09:01 Last Admin: 05/06/16 10:19 Dose: 75 mg Rivaroxaban (Xarelto (*)) 20 mg PO BEDTIME [facility] Last Admin: 05/05/16 20:34 Dose: 20 mg Sodium Chloride (Hypertonic) (Karolnia 128 Opth 2% Ale*) 1 drop BOTH EYES Q4H [facility] Last Admin: 05/06/16 14:38 Dose: 1 drop Topiramate (Topamax(*)) 25 mg PO QAM [facility] Last Admin: 05/06/16 10:19 Dose: 25 mg Vital Signs 05/05/16 05/05/16 05/05/16 16:00 16:16 16:59 Temperature 98.0 F Pulse Rate 71 73 70 Respiratory 16 15 18 Rate Blood Pressure 168/78 175/76 (mmHg) O2 Sat by Pulse 100 100 100 Oximetry 05/05/16 05/05/16 05/05/16 17:00 17:11 17:41 Temperature 98.0 F Pulse Rate 70 Respiratory 18 18 Rate Blood Pressure 175/76 (mmHg) O2 Sat by Pulse 100 100 Oximetry 05/05/16 05/05/16 05/05/16 20:00 20:51 20:53 Temperature Pulse Rate 75 Respiratory 18 Rate Blood Pressure (mmHg) O2 Sat by Pulse 98 98 Oximetry 05/06/16 05/06/16 05/06/16 00:06 01:08 03:43 Temperature 98.1 F 98.1 F Pulse Rate 81 89 91 Respiratory 20 19 Rate Blood Pressure 143/63 138/62 (mmHg) O2 Sat by Pulse 97 96 97 Oximetry 05/06/16 05/06/16 05/06/16 07:21 08:00 08:03 Temperature 97.9 F Pulse Rate 83 96 Respiratory 16 18 Rate Blood Pressure 168/75 (mmHg) O2 Sat by Pulse 98 96 Oximetry 05/06/16 05/06/16 11:03 14:03 Temperature 97.9 F Pulse Rate 77 79 Respiratory 16 Rate Blood Pressure 154/79 (mmHg) O2 Sat by Pulse 98 96 Oximetry Oxygen Devices in Use Now: None Appearance: morbidly obese female sitting up in a chair in NAD A+O x3 Eyes: No Scleral Icterus, PERRLA Ears/Nose/Mouth/Throat: NL Teeth, Lips, Gums, Mucous Membranes Moist Neck: NL Appearance and Movements; NL JVP, Trachea Midline Respiratory: Symmetrical Chest Expansion and Respiratory Effort, - - mild scattered rhonchi Cardiovascular: NL Sounds; No Murmurs; No JVD, RRR, - - b/l 1+ edema Abdominal: NL Sounds; No Tenderness; No Distention, - - obese Extremities: No Clubbing, Cyanosis Skin: - - B/L LE erythema appears to be vascular changes Neurological: Alert and Oriented x 3, NL Sensation, NL Muscle Strength and Tone Lines/Tubes/Other Access: Clean, Dry and Intact Peripheral IV Nutrition: Taking PO's Result Diagrams: 05/05/16 11:45 05/06/16 05:45 Additional Lab and Data: Lab Results 05/05/16 05/05/16 05/05/16 Range/Units 11:45 11:45 11:45 WBC 7.3 (3.5-10.8) 10^3/ul RBC 4.73 (4.0-5.4) 10^6/ul Hgb 13.8 (12.0-16.0) g/dl Hct 42 (35-47) % MCV 89 (80-97) fL MCH 29 (27-31) pg MCHC 33 (31-36) g/dl RDW 15 (10.5-15) % Plt Count 184 (150-450) 10^3/ul MPV 9 (7.4-10.4) um3 Neut % (Auto) 71.4 (38-83) % Lymph % (Auto) 20.3 L (25-47) % Logan % (Auto) 6.6 (1-9) % Eos % (Auto) 1.3 (0-6) % Baso % (Auto) 0.4 (0-2) % Absolute Neuts (auto) 5.2 (1.5-7.7) 10^3/ul Absolute Lymphs (auto) 1.5 (1.0-4.8) 10^3/ul Absolute Monos (auto) 0.5 (0-0.8) 10^3/ul Absolute Eos (auto) 0.1 (0-0.6) 10^3/ul Absolute Basos (auto) 0 (0-0.2) 10^3/ul Absolute Nucleated RBC 0 10^3/ul Nucleated RBC % 0 Sodium 140 (133-145) mmol/L Potassium 3.3 L (3.5-5.0) mmol/L Chloride 109 (101-111) mmol/L Carbon Dioxide 24 (22-32) mmol/L Anion Gap 7 (2-11) mmol/L BUN 24 (6-24) mg/dL Creatinine 0.98 H (0.51-0.95) mg/dL Est GFR ( Amer) 72.4 (>60) Est GFR (Non-Af Amer) 56.3 (>60) BUN/Creatinine Ratio 24.5 H (8-20) Glucose 164 H (70-100) mg/dL Lactic Acid 1.2 (0.5-2.0) mmol/L Calcium 8.8 (8.6-10.3) mg/dL Magnesium 1.9 (1.9-2.7) mg/dL Total Bilirubin 0.50 (0.2-1.0) mg/dL AST 14 (13-39) U/L ALT 21 (7-52) U/L Alkaline Phosphatase 64 (34-104) U/L Troponin I 0.00 (<0.04) ng/mL C-Reactive Protein 8.90 H (< 5.00) mg/L B-Natriuretic Peptide ( - 100) pg/mL Total Protein 6.7 (6.4-8.9) g/dL Albumin 3.6 (3.2-5.2) g/dL Globulin 3.1 (2-4) g/dL Albumin/Globulin Ratio 1.2 (1-3) 05/05/16 Range/Units 11:45 WBC (3.5-10.8) 10^3/ul RBC (4.0-5.4) 10^6/ul Hgb (12.0-16.0) g/dl Hct (35-47) % MCV (80-97) fL MCH (27-31) pg MCHC (31-36) g/dl RDW (10.5-15) % Plt Count (150-450) 10^3/ul MPV (7.4-10.4) um3 Neut % (Auto) (38-83) % Lymph % (Auto) (25-47) % Logan % (Auto) (1-9) % Eos % (Auto) (0-6) % Baso % (Auto) (0-2) % Absolute Neuts (auto) (1.5-7.7) 10^3/ul Absolute Lymphs (auto) (1.0-4.8) 10^3/ul Absolute Monos (auto) (0-0.8) 10^3/ul Absolute Eos (auto) (0-0.6) 10^3/ul Absolute Basos (auto) (0-0.2) 10^3/ul Absolute Nucleated RBC 10^3/ul Nucleated RBC % Sodium (133-145) mmol/L Potassium (3.5-5.0) mmol/L Chloride (101-111) mmol/L Carbon Dioxide (22-32) mmol/L Anion Gap (2-11) mmol/L BUN (6-24) mg/dL Creatinine (0.51-0.95) mg/dL Est GFR ( Amer) (>60) Est GFR (Non-Af Amer) (>60) BUN/Creatinine Ratio (8-20) Glucose (70-100) mg/dL Lactic Acid (0.5-2.0) mmol/L Calcium (8.6-10.3) mg/dL Magnesium (1.9-2.7) mg/dL Total Bilirubin (0.2-1.0) mg/dL AST (13-39) U/L ALT (7-52) U/L Alkaline Phosphatase (34-104) U/L Troponin I (<0.04) ng/mL C-Reactive Protein (< 5.00) mg/L B-Natriuretic Peptide 78 ( - 100) pg/mL Total Protein (6.4-8.9) g/dL Albumin (3.2-5.2) g/dL Globulin (2-4) g/dL Albumin/Globulin Ratio (1-3) Microbiology and Other Data: Microbiology 05/05/16 16:15 Influenza Types A,B Antigen (TUAN) - Final Nasal Specimen received for Influenza A/B Molecular testing Assess/Plan/Problems-Billing Assessment: 70 yo female with PMH of morbid obesity, hx of PE on xarelto, CAD, HTN, who presents to the emergency department 05/05 with c/o SOB foun dto have Influenza A and reactive airway disease - Patient Problems (1) Influenza A Comment: - off oxygen. afebrile. No leukocytosis - Continue Tamiflu for 10 doses (2) Reactive airway disease Comment: - mild, continue Dulera (3) Diabetes Comment: Diet controlled. No coeverage needed at this point. (4) HTN (hypertension) Comment: continue lisinopril, atenolol. (5) History of pulmonary embolus (PE) Comment: DDimer negative xarelto (6) Hypothyroidism Comment: Continue synthroid. (allergy to levothyroxine) (7) ANDREW (acute kidney injury) Comment: - secondary to dehydration. resolved with IVFs (8) Seizure disorder Comment: no seizure activity. continue home topomax (9) Full code status Status and Disposition: OBV. Home at discharge - stable for DC home if patient maintains O2 sat while ambulating
--- NOTE | 2016-05-07 07:29 | DS ---
DISCHARGE SUMMARY: DATE OF ADMISSION: 05/05/16 DATE OF DISCHARGE: 05/06/16 ATTENDING PHYSICIAN: Dr. Fuller *(report dictated by Nayla Nava NP). PRIMARY CARE PROVIDER: Dr. Rojo. HOSPITAL STATUS: Observation. DISCHARGE DIAGNOSES: 1. Influenza A. 2. Reactive airway disease. 3. Acute kidney injury secondary to dehydration, resolved with IV fluids. SECONDARY DIAGNOSES: 1. Morbid obesity. 2. History of pulmonary embolism, on Xarelto. 3. Coronary artery disease. 4. Hyperlipidemia. 5. Hypertension. 6. Peripheral vascular disease. 7. History of kidney stones. 8. Seizure disorder. 9. History of migraines. 10. Depression. 11. Type 2 diabetes, diet controlled. 12. Hypothyroidism. 13. 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 14. Hearing impairment. DISCHARGE MEDICATIONS: 1. Sodium chloride 2% ophth one drop both eyes q.4 hours. 2. Alphagan 0.15% one drop both eyes daily. 3. Albuterol HFA inhaler one to two puffs INH q.4 hours p.r.n. shortness of breath. 4. Lisinopril 5 mg p.o. q.a.m. 5. Synthroid 25 mcg p.o. q.a.m. 6. Flovent HFA 110 mcg two puffs INH b.i.d. 7. Bumex 1 mg p.o. q.a.m. p.r.n. 8. Lipitor 20 mg p.o. q.a.m. 9. Atenolol 50 mg p.o. q.a.m. 10. Aspirin EC low dose 81 mg p.o. daily. 11. Topamax 25 mg p.o. q.a.m. 12. Xarelto 20 mg p.o. at bedtime. 13. Potassium citrate 15 mEq p.o. t.i.d. 14. Multivitamin with minerals one tab p.o. q.a.m. NEW MEDICATIONS: 1. Tamiflu 75 mg p.o. b.i.d. x8 more doses, to continue 10 doses. 2. Dulera 200/5 MDI two puffs INH b.i.d. for reactive airway disease and for cough. HISTORY OF PRESENT ILLNESS AND HOSPITAL COURSE: Please see history and physical by Linda El NP, for full admission details, but in summary, this is a 70-year-old female who presented to the emergency department on 05/05/16 with a report of shortness of breath, reporting she has had upper respiratory symptoms for approximately a little over a month. The patient was seen at her primary care doctor's office as well as urgent care, diagnosed with acute bronchitis, finished her course of azithromycin, was seen again in urgent care, was diagnosed with bronchospasms and given a Flovent inhaler and albuterol inhaler, but the patient continued to feel poorly. The patient reports that her symptoms would wax and wane and she had cough and shortness of breath for approximately a month. On evaluation in the emergency department, she tested positive for influenza A. She had no leukocytosis on admission, CRP of 8.90, known to have mildly elevated creatinine of 0.98. The patient was admitted to the hospitalist service for influenza A with reactive airway disease as the patient was requiring oxygen therapy on admission. The patient was only requiring 2 L nasal cannula and was weaned off the oxygen by this morning. The patient did have a negative D-dimer. The patient was treated with nebulizers, Dulera and started on Tamiflu. This morning on evaluation, the patient reports she feels "much much better" and would like to go home. The patient was ambulated around the unit multiple times, maintaining her O2 sats between 93% and 98%. I checked the patient myself after ambulation before discharge and she was 97% on room air. The patient continues to have a cough, but no fevers or chills. Reports good appetite. No nausea, vomiting, diarrhea. I do not believe the patient requires antibiotics at this time. She was encouraged to continue the Dulera inhaler while she has a cough. The patient remained hemodynamically stable throughout hospitalization as well as no fevers noted. DISCHARGE PLAN: 1. Stable for discharge to home. Her will be driving her home. 2. The patient already has a previously scheduled appointment with Dr. Rojo this , which she was encouraged to keep. 3. The patient was instructed to return to the emergency department if she had any worsening or concerning symptoms. 4. I encouraged to rest, increase her fluid intake. TIME SPENT: Approximately 60 minutes was spent on this discharge. NAYLA NAVA NP CC: Dr. Rojo * [id number]/[facility] #: [id number] [facility]ENTER[facility]
== END 2016-05-06 17:15 | disposition home or self-care (01) ==
LOC: ED 11:24 → MED 15:22
PROVIDERS: ADMIT Hospitalist; ATTEND Internal Medicine
DX: J09.X2 Influenza due to identified novel influenza A virus with other respiratory manifestations (principal); J45.909 Unspecified asthma, uncomplicated; N17.9 Acute kidney failure, unspecified; E87.6 Hypokalemia; E66.01 Morbid (severe) obesity due to excess calories; Z86.711 Personal history of pulmonary embolism; Z79.01 Long term (current) use of anticoagulants; I25.10 Atherosclerotic heart disease of native coronary artery without angina pectoris; I10 Essential (primary) hypertension; E78.5 Hyperlipidemia, unspecified; I73.9 Peripheral vascular disease, unspecified; G40.909 Epilepsy, unspecified, not intractable, without status epilepticus; E11.9 Type 2 diabetes mellitus without complications; E03.9 Hypothyroidism, unspecified; H40.9 Unspecified glaucoma; Z79.899 Other long term (current) drug therapy; Z88.2 Allergy status to sulfonamides; Z88.1 Allergy status to other antibiotic agents; Z88.8 Allergy status to other drugs, medicaments and biological substances; R94.31 Abnormal electrocardiogram [ECG] [EKG]; R06.02 Shortness of breath
CPT/HCPCS: 36415; 71020; 71250; 80048; 80053; 83605; 83735; 83880; 84484; 85025; 85379; 86140; 87040; 87502; 93005; 94640; 94760; 96360; 96361; 99284; A9270-GY; G0378

== ENCOUNTER 2016-05-31 08:35 | Inpatient (IN) | payer MEDICARE ==
[2016-05-31] MEDS ORDERED: Ondansetron INJ* 2 MG/ML VIAL IV ONE (09:18)
[2016-05-31] MEDS ORDERED: Morphine INJ* 4 MG/ML 1 ML SYRINGE IV ONE (09:18)
[2016-05-31 09:24] LABS: Hematocrit 42 % (35-47); Hemoglobin 13.5 g/dl (12.0-16.0); Mean Corpuscular HGB Conc 32 g/dl (31-36); Mean Corpuscular Hemoglobin 29 pg (27-31); Mean Corpuscular Volume 89 fL (80-97); Mean Platelet Volume 8 um3 (7.4-10.4); Red Blood Count 4.65 10^6/ul (4.0-5.4); Red Cell Distribution Width 14 % (10.5-15); White Blood Count 3.9 10^3/ul (3.5-10.8)
[2016-05-31 09:34] LABS: Albumin 3.3 g/dL (3.2-5.2); BUN/Creatinine Ratio 19.3 (8-20); Calcium 8.9 mg/dL (8.6-10.3); EGFR African American 34.3 (>60); EGFR Non-African American 26.7 (>60); Globulin 3.1 g/dL (2-4); Potassium 3.7 mmol/L (3.5-5.0); Total Bilirubin 0.7 mg/dL (0.2-1.0); Total Protein 6.4 g/dL (6.4-8.9)
[2016-05-31 09:37] LABS: Troponin I 0.03 ng/mL (<0.04)
--- NOTE | 2016-05-31 09:49 | RAD ---
HISTORY: Fever COMPARISONS: May 05, 2016 VIEWS:1: Single frontal portable view of the chest at 9:20 AM FINDINGS: LINES AND TUBES: None. CARDIOMEDIASTINAL SILHOUETTE: The cardiomediastinal silhouette is normal for portable technique. PLEURA: The costophrenic angles are sharp. No pleural abnormalities are noted. LUNG PARENCHYMA: There is linear opacification of the right lung base ABDOMEN: The upper abdomen is clear. There is no subphrenic gas. BONES AND SOFT TISSUES: The patient is status post right shoulder arthroplasty IMPRESSION: LINEAR ATELECTASIS OF THE RIGHT LUNG BASE
[2016-05-31] MEDS ORDERED: Acetaminophen TAB* 325 MG PO ONE (10:21)
[2016-05-31] MEDS ORDERED: NS 0.9% 1000 ML* 1,000 ML IV ONE (10:31)
[2016-05-31] MEDS ORDERED: cefTRIAXone(*) 1 GM in NS 0.9% 50 ML* 50 ML IVPB ONE ×2 (10:31→12:21)
--- NOTE | 2016-05-31 11:43 | RAD ---
CLINICAL HISTORY: Right lower back pain, flank pain COMPARISON: November 28, 2015 TECHNIQUE: Multiple contiguous axial CT scans were obtained of the abdomen and pelvis, without intravenous contrast enhancement. Coronal and sagittal multiplanar reformations are submitted for review. Oral contrast was not administered. FINDINGS: The study is limited by the lack of intravenous contrast. This limits evaluation of the solid organs and vasculature. LUNG BASES: The lung bases are clear. LIVER: The liver is normal in shape, size, contour, and attenuation. BILE DUCTS: There is no intrahepatic or extrahepatic biliary dilatation. GALLBLADDER: The gallbladder is not visualized. Surgical clips are noted in the gallbladder fossa. PANCREAS: The pancreas is normal, without mass or ductal dilatation. SPLEEN: Normal in size and appearance. UPPER GI TRACT: Evaluation of the gastrointestinal tract is limited by incomplete gastric distention. There is a small hiatal hernia SMALL BOWEL AND MESENTERY: The small bowel is normal in contour, course, and caliber. There is no obstruction or dilatation. COLON: The colon is normal in contour, course, caliber. There is no pericolonic inflammatory change. ADRENALS: Normal bilaterally. KIDNEYS: The right kidney is edematous, with perinephric stranding. There is severe pelvocaliectasis. There are 2 calculi of the UPJ measuring up to 0.6 cm. There is a 0.4 cm calculus of the proximal right ureter. There are left renal calyceal stones in the pelvic stone measuring up to 0.7 cm, without hydronephrosis on the left BLADDER: The bladder is smooth in contour. PELVIC ORGANS: The pelvic organs are not visualized. AORTA: The aorta is normal. IVC: Unremarkable LYMPH NODES: There is no lymphadenopathy by size criteria. ABDOMINAL WALL: There is no evidence for abdominal wall hernia. BONES AND SOFT TISSUES: Degenerative changes are noted OTHER: None IMPRESSION: BILATERAL NEPHROLITHIASIS WITH SEVERAL RIGHT URETERAL STONES AND SEVERE RIGHT-SIDED HYDRONEPHROSIS
[2016-05-31 12:55] LABS: Urine Bacteria 1+ (Absent); Urine Bilirubin Negative (Negative); Urine Glucose Negative (Negative); Urine Nitrite Negative (Negative)
[2016-05-31] MEDS: NS 0.9% 1000 ML* 3,500 ML IV ONE ×2 (13:00→13:19)
[2016-05-31] MEDS ORDERED: EPHEDrine (Pressors)* 50 MG/ML VIAL ONE ×2 (13:24→14:54)
[2016-05-31] MEDS ORDERED: Phenylephrine INJ* 10 MG/ML 1 ML VIAL (10 MG) ONE ×2 (13:24→13:28)
[2016-05-31] MEDS ORDERED: Norepinephrine VIAL* 1 MG/ML 4 ML VIAL ONE ×2 (13:28→16:51)
[2016-05-31] MEDS ORDERED: Iohexol 180 (CONTRAST) 10 ML SDV IV ONE (13:30)
[2016-05-31] MEDS ORDERED: KETAMINE HCL* 50 MG/ML 10 ML VIAL ONE (13:53)
[2016-05-31] MEDS ORDERED: Midazolam* 1 MG/ML 2 ML VIAL (2 MG) ONE (13:55)
[2016-05-31] MEDS ORDERED: Propofol* 10 MG/ML 20 ML BTL IV PUSH ONE (14:22)
[2016-05-31] MEDS ORDERED: Lidocaine 2% PF* 5 ML VIAL ONE (14:22)
[2016-05-31] MEDS ORDERED: Ketorolac INJ* 30 MG/ML 1 ML VIAL ONE (14:23)
[2016-05-31] MEDS ORDERED: Ondansetron INJ* 2 MG/ML VIAL ONE (14:23)
[2016-05-31] MEDS ORDERED: Phenylephrine IV* 40 MCG/ML 10 ML SYRINGE ONE (14:26)
--- NOTE | 2016-05-31 15:10 | RAD ---
INDICATION: Sepsis COMPARISONS: CT dated May 31, 2016 TECHNIQUE: Fluoroscopy was provided for a retrograde pyelogram and stent placement. Total fluoroscopy time is: 14 seconds FINDINGS: Spot images after contrast within the renal collecting system. A ureteral stent is noted IMPRESSION: FLUOROSCOPY WAS PROVIDED FOR A RETROGRADE PYELOGRAM AND STENT PLACEMENT CPT II Codes: 6045F
[2016-05-31] MEDS ORDERED: Gentamicin ADULT per pharmacy 1 NOTE MISC FOLLOW UP PRN (15:21)
--- NOTE | 2016-05-31 15:53 | PN ---
Progress Note - Progress Note Note: Ms. Zhao's SBP remains in the 80s after 8L of IV fluids. She has poor urine output. Plan to transfer care to [facility].
[2016-05-31] MEDS ORDERED: Piperac/Tazob 3.375 gm in NS* 3.375 GM/100 ML BAG IVPB ONE (17:00)
--- NOTE | 2016-05-31 17:02 | PN ---
Progress Note - Progress Note Note: Critical Care Medicine Procedure Note Central Venous Catheter For administration of IV pressor and hemodynamic monitoring in face of septic shock Emergency...patient too somnolent for informed consent.....proceeded under implied consent Examined both Rt and Lt Int Jugular Veins as well as both Femoral Veins Rt Femoral Vein appears rather small, Lt Femoral Vein with partially occlusive clot Both Rt and Lt IJ demonstrated well....Lt IJ appeared more compliant and well positioned for puncture as compared to Rt IJ Time Out performed with Nurse Standard Sterile Prep with Chlorhexidine Swabs x2 Standard sterile fenestrated drape applied 1% Lidocaine local anesthesia ~6 ml Under continuous Ultrasound visualization LT Int Jugular Vein cannulated Guide wire passed easily Needle removed Tract dilated Triple lumen catheter passed to 19 cm at skin Wire removed All 3 ports philip back blood and were flushed with NS Line secured with sutures x4 Biopatch applied and sterile Tegaderm dressing applied CXR to be obtained to verify position but to begin to utilize immediately as patient remains hypotensive needing IV pressor No evident complication incurred
--- NOTE | 2016-05-31 17:12 | HP ---
H&P (Free Text) History and Physical: Critical Care Admitting Note/History and Physical 70 yo female who comes to the ICU after the OR where she underwent placement of a Rt Ureteral Stent for ureteral obstruction due to recurrent nephrolithiasis complicated by development of Rt pyelonephritis and septic shock. Patient presented to the ER this AM with symptoms leading to a CT Abdomen revealing renal calculi with an edematous Rt kidney and perinephric stranding consistent with pyelonephritis. In ER patient's lactate identified as 5 and patient given several liters of IV crystalloid over the time in the ER and in the OR. The patient has been hypotensive for quite some time. Asked to see patient by Hospitalist service after an additional 2 liters of IV fluids here in ICU failed to resolve the hypotension. Of note patient has received 1 dose of Ceftriaxone and one dose of Gentamicin so far. I have reviewed prior history and patient has had previous urinary cultures with E coli and Enterococcus. Further pertinent background includes prior bouts of nephrolithiasis s/p lithotripsy, multiple cystoscopies, and ureteral stenting. Most all information obtained from chart record so far today and EMR Allergy Leaquin, Sulfa, Latex PMH includes: PE (on Xarelto), CAD with stenting, HTN, DM, Hypothyroidism, PVD, Seizure disorder, Migraines, depression, glaucoma (legally blind), decreased auditory acuity, Rt shoulder surgery, Cholecystectomy, Hysterectomy, Bilateral Catarract Surgery, ORIF Lt Elbow Fam HX : Leukemia, CAD, DM Soc Hx : negative tobacco, rare EtOH, , Retired ROS : unable as patient too somnolent SBP 85 HR 112 RR 17 Skin no diaphoresis, no cyanosis but lips somewhat sallow colored, some flushing /erythema about neck, healed surgical scar of Rt shoulder Oral mucosa dry Neck supple, with redundant soft tissue Lungs with bilateral BS, no wheezes, no rhonchi Cor Tachy and regular, no rub, no murmur Abd obese-moderate paniculus, mild distension Ext large Rt hand PIV Distal pulses thready Neuro awakens transiently but rapidly somnolent No labs since this AM: WBC 3.9 Hgb 13.5 Plt 161 INR 1.89 PTT 24.5 Lact 5.1 BUN/Creat 36/1.87 Alb 3.3 UA with 2(+) leuc esterase and 3(+)WBC IMP: Septic Shock due to Rt pyelonephritis Recurrent nephrolithiasis complicated by urinary tract infections Lactic Acidosis Acute Kidney Injury Leucopenia...due to sepsis Morbid Obesity Hx HTN Hx DM Hx Hypothyroidism Hx PE on Xarelto...INR indicative of possibly mild over anticoagulation effect Hx CAD Hx PVD Hx Seizures Hx Migraine ROBB 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 PLAN/REC: Place central access for administration of IV pressor and hemodynamic monitoring Levophed to goal of MAP>65 Monitor CVP...goal CVP ~10-12 IV fluids Serial lactate Check ScvO2 Reassess CBC and BMP plus Mg, Ca(i), and Phos Trend Troponins Keep HOB mildly raised DVT prophyl with SCDs Analgesia with Dilaudid Hold all hypotensive meds for now D/C Ceftriaxone Zosyn...Pharmacy to manage dosing per in-house protocol Defer further Gentamicin pending assessment of course in which kidney function is going Hold on Xarelto Check INR in AM again Discussed with Hospitalist Service and Nurse To accept care of patient while in need of pressor support then to return to Hospitalist team T>55 min, CCM services rendered exclusive of time related to line placement earlier
[2016-05-31 17:33] LABS: Hematocrit 36 % (35-47); Hemoglobin 11.6 g/dl (12.0-16.0); Mean Corpuscular HGB Conc 32 g/dl (31-36); Mean Corpuscular Hemoglobin 29 pg (27-31); Mean Corpuscular Volume 91 fL (80-97); Mean Platelet Volume 9 um3 (7.4-10.4); Red Blood Count 3.98 10^6/ul (4.0-5.4); Red Cell Distribution Width 14 % (10.5-15); White Blood Count 18.1 10^3/ul (3.5-10.8)
[2016-05-31 17:34] LABS: Venous Bicarbonate HCO3 18.5 mmol/L (24-28)
--- NOTE | 2016-05-31 17:39 | RAD ---
Indication: Verify central line placement. Single frontal view of the chest performed at 1700 hours was reviewed. Comparison is made with previous exam dated May 31, 2016. No mediastinal shift is noted. Heart is of normal size and configuration. Prominent interstitial markings consistent with vascular congestion is present. Left-sided internal jugular vein catheter appears to be in place with the tip in the superior vena cava. IMPRESSION: INTERNAL JUGULAR VEIN CATHETER FROM THE LEFT APPEARS TO BE IN THE SUPERIOR VENA CAVA. NO PNEUMOTHORAX IS NOTED..
[2016-05-31] MEDS: HYDROmorphone* 1 MG/ML 1 ML SYR IV SLOW PU PRN ×2 (17:41→20:43)
[2016-05-31] MEDS ORDERED: NS 0.9% 1000 ML* 1,000 ML IV SCH (17:45)
[2016-05-31 17:48] LABS: BUN/Creatinine Ratio 16.3 (8-20); Calcium 7.7 mg/dL (8.6-10.3); EGFR African American 30.2 (>60); EGFR Non-African American 23.5 (>60); Magnesium 1.4 mg/dL (1.9-2.7); Phosphorus 2.7 mg/dL (2.5-5.0); Potassium 3.6 mmol/L (3.5-5.0)
[2016-05-31] MEDS ORDERED: Norepinephrine 16MCG/ML IVPRE* 4,000 MCG/250 ML BAG IV SCH (18:00)
[2016-05-31] MEDS ORDERED: Sodium Phosphate INJ* 15 MMOLE in NS 0.9% 250 ML* 250 ML IVPB ONE (18:01)
[2016-05-31] MEDS ORDERED: Magnesium Sulfate 2 GM IV* 2 GM/50 ML BAG IVPB ONE (18:05)
[2016-05-31] MEDS: Sodium Bicarbonate 8.4% IV* 75 MEQ in NS 0.45% 1000 ML BAG* 1,000 ML IV SCH (18:31)
--- NOTE | 2016-05-31 19:11 | HP ---
HISTORY AND PHYSICAL: DATE OF ADMISSION: 05/31/16 PRIMARY CARE PHYSICIAN: Dr. Rojo. ATTENDING PHYSICIAN: Trent Ferrari MD *(dictation provided by Jacy Roman NP) CHIEF COMPLAINT: Nausea, vomiting, fever, and back pain. HISTORY OF PRESENT ILLNESS: Ms. Zhao is a 70-year-old female with a past medical history of multiple episodes of nephrolithiasis status post lithotripsy , ureteroscopies and stent placement with Dr. Osborn. She also has a history of obesity, pulmonary embolism on Xarelto, hypertension. The patient states she was feeling her normal state of health until last night. She initially noticed that she had some pain in her neck. She went to bed and when she woke at 5 a.m., she was feeling pain in her back. She took a pain pill, but did not find any relief. Shortly thereafter, she developed a fever up to 103 and pain in her right flank. She felt these symptoms are very similar to her previous history of kidney stones and therefore, came to emergency room for evaluation. In the emergency room, Ms. Zhao had a normal white blood cell count with a fever of 101.5. Initially her blood pressure was in 120s, but a couple of hours later her blood pressure was now down into the 70s systolically. The patient was started on gentamicin and ceftriaxone at the request of Dr. Osborn and multiple liters of IV fluids were infused via pressure bag. CT scan of the abdomen and pelvis confirmed stones and is read as follows; "bilateral nephrolithiasis, several right ureteral stones and severe right- sided hydronephrosis." The patient also has an elevated BUN and creatinine with acute kidney injury and a lactic acidosis of 5.1. Urinalysis shows 2+ leuk esterase and 3+ blood. Based on Ms. Zhao's presentation with concern for nephrolithiasis with severe right-sided hydronephrosis and sepsis with hypotension, Hospital Medicine was called regarding admission and Dr. Osborn from Urology was called regarding intervention. PAST MEDICAL HISTORY: 1. Multiple episodes of nephrolithiasis status post lithotripsy and ureteroscopes and stent placements with Dr. Osborn. 2. History of PE, on Xarelto. 3. Coronary artery disease that is medically managed. 4. Hyperlipidemia. 5. Hypertension. 6. Peripheral vascular disease. 7. History of seizure disorder, no longer on Topamax secondary to concern that this was contributing to kidney stones. 8. Migraines. 9. Depression. 10. Hypothyroidism. 11. Blindness. 12. Hardness of hearing. MEDICATIONS: 1. Albuterol 1 to 2 puffs inhaled q.4 hours p.r.n. 2. Aspirin 81 mg p.o. q.a.m. 3. Atenolol 50 mg q.a.m. 4. Atorvastatin 20 mg p.o. q.a.m. 5. Fluticasone nasal spray 110 mcg 2 puffs inhaled b.i.d. 6. Levothyroxine 50 mcg p.o. q.a.m. 7. Lisinopril 5 mg p.o. q.a.m. 8. Dulera 200/5 twp puffs inhaled b.i.d. 9. Multivitamin with minerals one tab p.o. q.a.m. 10. Potassium citrate 15 mEq p.o. t.i.d. 11. Rivaroxaban 20 mg p.o. daily. 12. Sodium chloride 2% ophthalmic solution p.r.n. ALLERGIES: LEVAQUIN, SULFA, LATEX, and LEVOTHYROXINE, although I do note the patient is on LEVOTHYROXINE. FAMILY HISTORY: The patient reports father related to diabetes and leukemia. Mother is alive and well. SOCIAL HISTORY: No report of alcohol, tobacco, or drug use. The patient lives with her , Bernabe, who is the healthcare proxy. REVIEW OF SYSTEMS: A 14-point review of systems was completed with Ms. Zhao and all those not mentioned above were negative. I will note that the patient was admitted to the hospital and discharged on 05/06/16, for flu and acute kidney injury. The patient states she is completely recovered from her flu and was feeling quite well prior to development of symptoms last night. PHYSICAL EXAMINATION GENERAL: Ms. Zhao is lying in the bed. She is in no acute distress. She is calm and cooperative with my examination. VITAL SIGNS: Temperature 101.5, heart rate 126 on arrival and down to 107 at the time of my examination, respiratory rate 20 on arrival and 23 at the time of my examination, O2 saturation 97% essentially unchanged during her time here in the ED. Blood pressure on arrival was 145/67, at the time of my examination it was 75/35 and IV fluids were infusing. LUNGS: Clear to auscultation bilaterally with no accessory muscle use and good aeration. HEART: S1, S2. No murmur, rub, or gallop and regular. ABDOMEN: Soft, it is nontender. Bowel sounds are positive x4. I was unable to assess flank pain and note that the patient states she was pain free after receiving morphine. EXTREMITIES: No cyanosis. Positive 1+ edema. NEUROLOGIC: She is alert and oriented x3 and mentating well. She moves all extremities equally. There is no facial asymmetry or focal weakness. Extraocular movements are intact. SKIN: Intact. DIAGNOSTIC STUDIES/LABORATORY DATA: WBC 3.9, hemoglobin 13.5, hematocrit 42, platelet count 161. INR 1.89. Sodium 138, potassium 3.7, chloride 104, serum bicarbonate 23, BUN 36, creatinine 1.87, glucose 234, lactic acid 5.1. Urine shows 2+ leuk esterase and 3+ blood. Abdomen and pelvis CT is read as per above. The chest x-ray is read as follows; "linear atelectasis of the right lung base. " ASSESSMENT: Ms. Zhao is a 70-year-old female with history of multiple episodes of nephrolithiasis managed by Dr. Osborn with lithotripsy, ureteroscopes, and stent placements who again returned to the ED with repeat episode of nephrolithiasis with severe hydronephrosis on the right and sepsis as evidenced by hypotension, tachycardia and acute renal failure. Our plan is for inpatient admission to the intensive care unit and I expect her length of stay to be greater than 2 days with followin. Severe right-sided hydronephrosis with sepsis: The patient is on her third bag of IV fluids in the emergency room and additional bags are being hung now. Dr. Louis from Anesthesiology is preparing to take the patient immediately to the OR and to continue to resuscitate her there. At this point, the patient is mentating well, but her urine output is negligible. The patient has had ceftriaxone and gentamicin and further antibiotic coverage will be discussed with Dr. Osborn. Blood cultures have been drawn. I do note her lactic acid is 5.1 and that will be reassessed after she comes out of the OR. 2. History of pulmonary embolism: Plan to continue Xarelto when it is approved per Dr. Osborn. 3. Hypothyroidism: Plan to continue levothyroxine. We will need to convert to IV if the patient is not taking oral once she returns from surgery. 4. Hypotension: The patient takes atenolol and lisinopril for blood pressure, which will be held. 5. Question of asthma versus chronic obstructive pulmonary disease: The patient is on Flovent and Dulera, though I do not see chronic obstructive pulmonary disease or asthma on her problem list as noted. I am not able to ask her at this point if she has already gone to the surgery. Plan to continue those agents. I do not see any indication that she is in acute exacerbation at this point. 6. Type 2 diabetes. The patient stated that she does not have diabetes. I note in the record that at least it had been diet controlled. We will monitor her glucose intermittently and add any treatment if necessary. 7. DVT prophylaxis with SCDs until Xarelto can be resumed. 8. Code status is DNR and form has been completed with the patient and the at the bedside who signed as the patient is legally blind. TIME SPENT: Approximately 60 minutes were spent in the admission of this patient, more than half of the time was spent with her at the bedside reviewing the events leading up to this hospitalization, performing the physical examination, and reviewing my plan of care. JACY ROMAN NP CC: Dr. Rojo * [id number]/[facility] #: [id number] ANTHNOY
[2016-05-31] MEDS: Mometasone/Formoter 200/5 MDI INH SCH (20:11)
[2016-05-31] MEDS: Piperac/Tazob 3.375 gm in NS* 3.375 GM/100 ML BAG IVPB SCH (20:42)
[2016-05-31] MEDS: Heparin VIAL(*) 5000 UNITS/ML VIAL (FIVE THOUSAND) SUBCUT SCH (22:16)
--- NOTE | 2016-05-31 23:05 | OP ---
CC: Dr. Popeye Rojo OPERATIVE REPORT: DATE OF OPERATION: 05/31/16 DATE OF : 47 SURGEON: Dr. Osborn. ANESTHESIOLOGIST: Dr. Louis. ANESTHESIA: General. PRE-OP DIAGNOSES: 1. Obstructing proximal right ureteral calculi. 2. Right pyelonephritis and urosepsis due to above. POST-OP DIAGNOSES: 1. Obstructing proximal right ureteral calculi. 2. Right pyelonephritis and urosepsis due to above. OPERATIVE PROCEDURE: 1. Cystoscopy. 2. Right-retrograde pyelography and placement of right ureteral stent (6-Gambian ). INDICATIONS: Ms. Zhao is a 70-year-old white female who is a known stone former, who had multiple procedures in the past for bilateral renal calculi. She was left with bilateral renal calculi that were 6 mm or smaller. She started having right flank pain last night and presented to the emergency room today with increasing pain. Noncontrast CT of the abdomen and pelvis showed a 6 -mm calculus in the right renal pelvis and another 6-mm calculus in the proximal right ureter with right hydronephrosis and stranding around her kidney. Urinalysis was positive for infection. After urine and blood cultures were obtained, the patient was given intravenous Rocephin and gentamicin. While preparing her admission and scheduling her for stent placement, she dropped her blood pressure and became febrile. The patient was resuscitated with fluids and sympathomimetics with good response. Her INR was elevated and the patient is morbidly obese, making her not a candidate for right nephrostomy tube placement. The patient is taken urgently to the operating room for placement of a right ureteral stent. PATHOLOGY AT CYSTOSCOPY: The bladder mucosa looked normal. There were no suspicious bladder lesions seen. No calculi or diverticula were noted. At fluoroscopy, small calcifications were noted in the area of the proximal ureter and renal pelvis corresponding to the findings on the CT. Following the placement of the open-ended catheter in the right renal pelvis, there was a hydronephrotic drip of a dark, bloody, cloudy urine. The contrast used for the retrograde was minimal, to avoid worsening her sepsis, with the purpose of localizing the renal pelvis and not for determining the degree of hydronephrosis. DESCRIPTION OF PROCEDURE: After successful general anesthesia, the patient was placed in the lithotomy position and was prepped and draped for cystoscopy. Cystoscopy was performed. The bladder was inspected and the above findings were noted. A flexible-tip guidewire was then introduced into the right orifice and under fluoroscopic guidance was passed without difficulty until it coiled in the renal pelvis. A size 5-Gambian open-ended catheter was fed on top of the guidewire and positioned in the renal pelvis. Urine was obtained from the right kidney and sent for urine culture. After the hydronephrotic drip slowed down, 2 mL of contrast was injected just to delineate the renal pelvis for stent placement. A size 6-Gambian stent was then placed with the proximal end coiling in the renal pelvis and the distal end coiling inside the bladder. There was prompt drainage of contrast from the kidney. A size 16-Gambian Dixon catheter was passed inside the bladder and the balloon inflated with 10 cc of water. The patient tolerated the procedure well and left the operating room in stable condition with normal vital signs and normal blood pressure and oxygen saturation. [id number]/[facility] #: [id number] ANTHONY
[2016-05-31 23:24] LABS: Venous Bicarbonate HCO3 18.2 mmol/L (24-28)
[2016-05-31 23:41] LABS: BUN/Creatinine Ratio 15.9 (8-20); Calcium 7.6 mg/dL (8.6-10.3); EGFR African American 26.6 (>60); EGFR Non-African American 20.7 (>60); Potassium 4.2 mmol/L (3.5-5.0)
[2016-05-31 23:47] LABS: Troponin I 0.15 ng/mL (<0.04)
[2016-06-01] MEDS: HYDROmorphone* 1 MG/ML 1 ML SYR IV SLOW PU PRN ×4 (01:05→16:33)
[2016-06-01] MEDS ORDERED: Acetaminophen TAB* 325 MG ONE (02:33)
[2016-06-01] MEDS ORDERED: NS 0.9% 1000 ML* 1,000 ML IV ONE (03:25)
[2016-06-01] MEDS ORDERED: Vasopressin* 100 UNITS in D5W 250 ML BAG* 245 ML IVPB SCH (04:00)
[2016-06-01] MEDS ORDERED: NS 0.9% 250 ML* 250 ML with Norepinephrine VIAL* 4 MG IV SCH ×2 (04:00)
[2016-06-01] MEDS: Hydrocortisone INJ* 100 MG VIAL IV SCH ×4 (04:27→22:19)
[2016-06-01] MEDS ORDERED: Albumin Human 5%* 500 ML in PREMIX* 0 ML IV ONE (04:30)
[2016-06-01] MEDS: Sodium Bicarbonate 8.4% IV* 75 MEQ in NS 0.45% 1000 ML BAG* 1,000 ML IV SCH (04:47)
[2016-06-01] MEDS: Piperac/Tazob 3.375 gm in NS* 3.375 GM/100 ML BAG IVPB SCH ×3 (04:49→21:17)
--- NOTE | 2016-06-01 04:49 | PN ---
Progress Note - Progress Note Note: Nursing had called earlier reporting hypotension. Urine output remains poor, but Mrs Zhao is able to mentate appropriately. Advised to give 1L NS and increased max norepinephrine GTT to 30. After the bolus with norepi at 25, she remained hypotensive with systolics in the 70-80s and MAPs in the low 40s to low 50s. Situation discussed with Sara De La Torre MD radial drill press set up operator who advised 500cc albumin, hydrocortisone 50mg IV Q6H, & adding vasopressin. Will continue to monitor closely.
[2016-06-01] MEDS ORDERED: Albumin Human 5%* 250 ML BTL IV ONE (04:52)
[2016-06-01] MEDS: Heparin VIAL(*) 5000 UNITS/ML VIAL (FIVE THOUSAND) SUBCUT SCH ×2 (05:53→14:57)
[2016-06-01] MEDS: Levothyroxine TAB* 50 MCG TAB PO SCH (05:53)
[2016-06-01 06:41] LABS: Hematocrit 37 % (35-47); Hemoglobin 11.7 g/dl (12.0-16.0); Mean Corpuscular HGB Conc 32 g/dl (31-36); Mean Corpuscular Hemoglobin 29 pg (27-31); Mean Corpuscular Volume 90 fL (80-97); Mean Platelet Volume 10 um3 (7.4-10.4); Red Blood Count 4.09 10^6/ul (4.0-5.4); Red Cell Distribution Width 15 % (10.5-15); White Blood Count 34.1 10^3/ul (3.5-10.8)
[2016-06-01 06:44] LABS: Venous Bicarbonate HCO3 17.8 mmol/L (24-28)
[2016-06-01 06:46] LABS: Add Diff/Slide Review? Slide Review Added; Comments Flag Yes
[2016-06-01 06:52] LABS: BUN/Creatinine Ratio 15.4 (8-20); Calcium 7.2 mg/dL (8.6-10.3); EGFR African American 21.5 (>60); EGFR Non-African American 16.8 (>60); Potassium 4.5 mmol/L (3.5-5.0)
[2016-06-01 06:59] LABS: Troponin I 0.37 ng/mL (<0.04)
[2016-06-01 07:04] LABS: Immature Granulocytes 27 % (0-9); Neutrophil % 71 % (38-83); Toxic Granulation 1+
[2016-06-01] MEDS ORDERED: Albumin Human 25%* 100 ML in PREMIX* 0 ML IV SCH (08:00)
[2016-06-01] MEDS: Mometasone/Formoter 200/5 MDI INH SCH ×2 (09:16→21:17)
[2016-06-01] MEDS: Aspirin EC Low Dose* 81 MG TAB.EC PO SCH (09:39)
[2016-06-01] MEDS: Atorvastatin* 20 MG TAB PO SCH (09:39)
[2016-06-01] MEDS ORDERED: cefTRIAXone VIAL(*) 1,000 MG in NS 0.9% 50 ML* 50 ML IVPB SCH (11:00)
--- NOTE | 2016-06-01 12:08 | PN ---
Progress Note - Progress Note Note: CCM Progress Note Mickey night...needed addition of Vaso gtt and Solucortef SBP 95 HR 90 CVP 17 RR 11-17 SpO2 97 (NC) Skin no diaphoresis, no cyanosis, healed surgical scar of Rt shoulder, Rt elbow , knees Oral mucosa pink Neck supple, with redundant soft tissue Lungs with bilateral BS, few basilar crackles, no wheezes, no rhonchi Cor Regular, no rub, no murmur Abd obese-moderate paniculus, mild distension Ext large Rt hand PIV Distal pulses faint Neuro awakens transiently but rapidly somnolent Lt IJ TLC WBC 34.1 (27% Bands) Hgb 11.7 Plt 155 INR 2.65 Lact 3.9 BUN/Creat 43/2.8 Trops to 0.15 and 0.37 HCO3 20pH(v) 7.23 ScvO2 75 Urine Cx >100K E coli Blood Cx E coli (sensitive to Zosyn) plus GPC resembling Strep IMP: Septic Shock due to Rt pyelonephritis Recurrent nephrolithiasis complicated by urinary tract infections Lactic Acidosis...subsiding slowly Acute Kidney Injury with metabolic acidosis Leucopenia....resolved Morbid Obesity Hx HTN..not an issue now Small rise in Troponins..may relate to renal failure and lack of troponin clearance Hx DM Hx Hypothyroidism Hx PE on Xarelto...presently with pathologic coagulopathy so no need for Xarelto Hx CAD Hx PVD Hx Seizures Hx Migraine ROBB 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 PLAN/REC: Continue Levo and Vaso gtts Monitor CVP Solucortef 50 mg IV Q6 25% Albumin Change IVF to full bicarb gtt Serial lactate Intermittent check of ScvO2 Reassess CBC and BMP plus Mg, Ca(i), and Phos Trend Troponins Keep HOB mildly raised DVT prophyl with SCDs Analgesia with Dilaudid Hold all hypotensive meds for now Continue Zosyn Check INR in AM again Discussed with at bedside T>35 min, CCM services rendered
[2016-06-01 12:15] LABS: Albumin 2.8 g/dL (3.2-5.2); Direct Bilirubin 0.5 mg/dL (0.03-0.18); Globulin 2.7 g/dL (2-4); Indirect Bilirubin 0.3 mg/dL (0.3-1.0); Total Bilirubin 0.8 mg/dL (0.2-1.0); Total Protein 5.5 g/dL (6.4-8.9)
[2016-06-01] MEDS: Norepinephrine VIAL* 4 MG in NS 0.9% 250 ML* 250 ML IV SCH ×2 (14:04→15:02)
[2016-06-01] MEDS: Sodium Bicarbonate 8.4% IV* 150 MEQ in D5W 1000 ML BAG* 1,000 ML IVPB SCH (15:02)
[2016-06-01 16:23] LABS: Venous Bicarbonate HCO3 20.3 mmol/L (24-28)
[2016-06-01 16:27] LABS: Hematocrit 35 % (35-47); Hemoglobin 11.2 g/dl (12.0-16.0); Mean Corpuscular HGB Conc 32 g/dl (31-36); Mean Corpuscular Hemoglobin 29 pg (27-31); Mean Corpuscular Volume 89 fL (80-97); Mean Platelet Volume 9 um3 (7.4-10.4); Red Blood Count 3.88 10^6/ul (4.0-5.4); Red Cell Distribution Width 15 % (10.5-15); White Blood Count 30.8 10^3/ul (3.5-10.8)
[2016-06-01 16:30] LABS: Add Diff/Slide Review? Slide Review Added; Comments Flag Yes
[2016-06-01 16:39] LABS: BUN/Creatinine Ratio 14.3 (8-20); Calcium 6.9 mg/dL (8.6-10.3); EGFR African American 19.3 (>60); Potassium 4.7 mmol/L (3.5-5.0)
[2016-06-01 16:46] LABS: Troponin I 0.43 ng/mL (<0.04)
[2016-06-01] MEDS ORDERED: Dextrose 50% Syringe 50 ML* 25 GM/50 ML SYRINGE IV PUSH PRN (17:17)
[2016-06-01] MEDS: Ondansetron INJ* 2 MG/ML VIAL IV PRN (17:35)
[2016-06-01] MEDS: Insulin LISPRO* 1 UNITS UNIT SUBCUT SCH ×2 (17:36→22:19)
[2016-06-01] MEDS: Acetaminophen TAB* 325 MG PO PRN (22:24)
[2016-06-02] MEDS: Norepinephrine VIAL* 4 MG in NS 0.9% 250 ML* 250 ML IV SCH (01:41)
[2016-06-02] MEDS: Insulin LISPRO* 1 UNITS UNIT SUBCUT SCH ×6 (02:13→22:31)
[2016-06-02] MEDS: Hydrocortisone INJ* 100 MG VIAL IV SCH ×4 (03:46→23:38)
[2016-06-02] MEDS: Piperac/Tazob 3.375 gm in NS* 3.375 GM/100 ML BAG IVPB SCH ×3 (04:32→20:55)
[2016-06-02] MEDS: Levothyroxine TAB* 50 MCG TAB PO SCH (06:21)
[2016-06-02 06:23] LABS: Hematocrit 33 % (35-47); Hemoglobin 10.8 g/dl (12.0-16.0); Mean Corpuscular HGB Conc 32 g/dl (31-36); Mean Corpuscular Hemoglobin 29 pg (27-31); Mean Corpuscular Volume 89 fL (80-97); Mean Platelet Volume 9 um3 (7.4-10.4); Red Blood Count 3.76 10^6/ul (4.0-5.4); Red Cell Distribution Width 15 % (10.5-15)
[2016-06-02 06:31] LABS: Comments Flag Yes
[2016-06-02 06:33] LABS: Add Diff/Slide Review? Slide Review Added; White Blood Count 31.3 10^3/ul (3.5-10.8)
[2016-06-02 06:41] LABS: Troponin I 0.52 ng/mL (<0.04)
[2016-06-02 06:55] LABS: Immature Granulocytes 15 % (0-9); Metamyelocytes % 3 % (0-2); Neutrophil % 80 % (38-83); Reactive Lymph % 1 % (0-6)
[2016-06-02 06:56] LABS: Macrocytosis 1+
[2016-06-02 07:43] LABS: Calcium 6.9 mg/dL (8.6-10.3); EGFR African American 18.2 (>60); EGFR Non-African American 14.2 (>60); Magnesium 1.9 mg/dL (1.9-2.7); Phosphorus 4.3 mg/dL (2.5-5.0); Potassium 4.2 mmol/L (3.5-5.0)
[2016-06-02] MEDS: Sodium Bicarbonate 8.4% IV* 150 MEQ in D5W 1000 ML BAG* 1,000 ML IVPB SCH ×2 (07:43)
[2016-06-02] MEDS ORDERED: Sodium Bicarbonate 8.4% IV* 75 MEQ in NS 0.45% 1000 ML BAG* 1,000 ML IV SCH (08:00)
--- NOTE | 2016-06-02 08:31 | PN ---
Progress Note - Progress Note Note: [facility] Progress Note Asked to see in relation to neck pain last afternoon/evening...found that CVP line pulled out to about 7-8 cm only under skin Per nurse blood returns still from all ports however patient quite tender in region...suspect line possibly at point of infiltrating partially into soft tissues Urgently requested PICC line which was kindly performed by one of our ICU nurses and central line removed Was quite nauseous ytdy afternoon and early evening...this has subsided per patient Also reports her back pain has cleared this AM Says her stomach feels OK Requesting to get out of bed Nurse titrated down Levophed to 6 mcg/min overnight and Vasopressin to 0.01 units/min SBP 99 MAP 63-71 HR 84 RR 15-16 SpO2 100 (NC) UO 650 ml x24 hrs Skin no diaphoresis, no cyanosis, healed surgical scar of Rt shoulder, Rt elbow , knees Bandage Lt neck Sclerae anicteric, pupils equal Oral mucosa pink Lungs with bilateral BS, no wheezes, no rhonchi Cor Regular, no rub, no murmur Abd obese-moderate paniculus, (+)BS Ext large, mild-mod edema Rt arm with PICC Neuro sleepy but awakens easily WBC 31.3 Hgb 10.8 Plt 113 Lact 1.9 BUN/Creat 55/3.24 Trops to 0.52 HCO3 25 Gluc 200-265 Urine Cx >100K E coli Blood Cx E coli (sensitive to Zosyn) plus GPC resembling Strep IMP: Septic Shock due to Rt pyelonephritis...slowly improving Recurrent nephrolithiasis complicated by urinary tract infections Lactic Acidosis...subsided Acute Kidney Injury ...oliguric but still putting out urine Metabolic acidosis...controlled...bicarb to 25 Morbid Obesity Hx HTN..not an issue now Small rise in Troponins..may relate to renal failure and lack of troponin clearance...but has history of CAD Hx DM..with moderate hyperglycemia in face of steroids and sepsis Hx Hypothyroidism Hx PE on Xarelto...presently with pathologic coagulopathy so no need for Xarelto or Sub Q Heparin at present Hx PVD Hx Seizures Hx Migraine ROBB 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 PLAN/REC: Place Vaso gtt back at 0.03 units/hr Wean Levo gtt off first then follow with wean of Vaso gtt Reduce Solucortef to 50 mg IV Q 8 hrs 25% Albumin again today x1 Change IVF to 1/2 NS with 75 meq NaHCO3 per liter to run at 80 ml /hr Insulin slide scale Q 4 hrs Serial lactate ECHO and ECG Trend Troponins Keep HOB mildly raised DVT prophyl with SCDs Analgesia with Dilaudid prn May be OOB as tolerated Daily culture review Continue Zosyn Check INR daily Discussed night and day ICU nurses T>35 min, CCM services rendered
[2016-06-02] MEDS ORDERED: Albumin Human 25%* 100 ML in PREMIX* 0 ML IV ONE (09:00)
[2016-06-02] MEDS: Atorvastatin* 20 MG TAB PO SCH (09:20)
[2016-06-02] MEDS: Aspirin EC Low Dose* 81 MG TAB.EC PO SCH (09:20)
[2016-06-02] MEDS: HYDROmorphone* 1 MG/ML 1 ML SYR IV SLOW PU PRN ×3 (09:24→23:49)
--- NOTE | 2016-06-02 11:04 | ECHO ---
Patient: DIDI GODWIN [facility] Rec#: [id number] : 1945 Date: 06/02/2016 Age: 70y Height: 172.7 cm / 68.0 in Weight: 149.7 kg / 329.9 lbs Sex: F BSA: 2.5 Room#: ICU 11 Admit Date#: 05/31/2016 Type: Inpatient Referring: Maurizio De La Torre MD Reading: Zhanna Sharif MD Media Relations Director: Noy Bernal RN RDCS CC: Popeye Rojo MD Transthoracic Echocardiogram Indication: Hypotension, septic shock BP: 94/56 HR: 84 Rhythm: NSR Findings History: CAD with stenting, HTN, HLD, DM, morbid obesity, prior PE, hypothyroidism. The patient is on vasopressors during the exam. Technical Comments: The study is technically limited due to patient body habitus. The study was technically limited due to the patient's inability to lay in the left lateral decubitus position. Completed at 1050. Left Ventricle: The left ventricular chamber size is mildly dilated. Mild concentric left ventricular hypertrophy is observed. There is increased basal septal hypertrophy noted without evidence of an increased gradient across the left ventricular outflow tract. Left ventricular systolic function is at the lower limits of normal. The estimated ejection fraction is 45-50%. Closer to 50% (body habitus limited imaging and therefore accuracey of estimating EF). Normal left ventricular diastolic filling is observed. Left Atrium: The left atrium is mild to moderately dilated. Right Ventricle: The right ventricular cavity size is normal. The right ventricular global systolic function is normal. Right Atrium: The right atrial cavity size is normal. Aortic Valve: The aortic valve is trileaflet. The aortic valve leaflets are mildly thickened. There is no evidence of aortic regurgitation. There is no evidence of aortic stenosis. Mitral Valve: Mild mitral annular calcification present. The mitral valve leaflets are mildly thickened. There is mild to moderate mitral regurgitation. There is no evidence of mitral stenosis. Tricuspid Valve: The tricuspid valve leaflets are normal. There is trace to mild tricuspid regurgitation. Unable to estimate the right ventricular systolic pressure. Pulmonic Valve: The pulmonic valve appears normal. There is a trace pulmonic regurgitation. There is no pulmonic stenosis. Pericardium: There is no significant pericardial effusion. A pericardial fat pad is visualized. Aorta: There is no dilatation of the ascending aorta. The aortic arch is not well visualized. The aortic root is normal in size. Pulmonary Artery: The main pulmonary artery appears normal. Venous: The inferior vena cava appears normal in size. There is no change in the dimension of the inferior vena cava with respiration consistent with markedly increased right atrial pressure. Conclusions The study is technically limited due to patient body habitus. Mild concentric left ventricular hypertrophy is observed. The estimated ejection fraction is 50%, body habitus limited imaging and therefore accuracey of estimating EF. Normal left ventricular diastolic filling is observed. The right ventricular global systolic function is normal. The aortic valve leaflets are mildly thickened with normal aortic valve function, well seen. There is mild to moderate mitral regurgitation, central jet. There is trace to mild tricuspid regurgitation. Unable to estimate the right ventricular systolic pressure. Compared with prior echo of 09/24/12, LVH unchanged, LVEF at that time estimated at 55-60%, AV function is stable, the degree of MR has increased. Consider followup imaging with echo contrast to better evaluate ventricular function and wall motion. Measurements Name Value Normal Range RVIDd (AP) 2D 2.8 cm (0.9 - 2.6) RVDdMajor (2D) 2.4 cm (2.2 - 4.4) RAd ISD 4CH 4.8 cm (3.4 - 4.9) RA (A4C)W 3.4 cm (2.9 - 4.6) IVSd (2D) 1.2 cm (0.6 - 1) LVPWd (2D) 1.1 cm (0.6 - 1) LVIDd (2D) 5.5 cm (3.6 - 5.4) LVIDs (2D) 4.6 cm - LV FS (2D) 16 % (25 - 45) Aortic Annulus 2.1 cm (1.4 - 2.6) Ao root diameter (2D) 2.8 cm (2.1 - 3.5) Ascending Ao 3.1 cm (2.1 - 3.4) LA dimension (AP) 2D 4.7 cm (2.3 - 3.8) LAd ISD 4CH 6.2 cm (2.9 - 5.3) LA ISD 4CH W 4.8 cm (2.5 - 4.5) Name Value Normal Range LA ESV SP 4CH (A/L) 74 ml - LA ESV SP 2CH (A/L) 62 ml - LA ESV BP (A/L) 69 ml - LA ESV BP (A/L) index 27.1 ml/m2 - LA ESV SP 4CH (MOD) 68 ml - LA ESV SP 2CH (MOD) 60 ml - Name Value Normal Range MV E-wave Vmax 0.97 m/sec - MV deceleration time 191 msec - MV A-wave Vmax 0.7 m/sec - MV E:A ratio 1.4 ratio - LV septal e' Vmax 0.08 m/sec - LV lateral e' Vmax 0.08 m/sec - LV E:e' septal ratio 12.1 ratio - LV E:e' lateral ratio 12.1 ratio - Name Value Normal Range AV Vmax 1.4 m/sec - AV VTI 32.7 cm - AV peak gradient 7.5 mmHg - AV mean gradient 4.7 mmHg - LVOT Vmax 0.95 m/sec - LVOT VTI 19.4 cm - Name Value Normal Range IVC diameter 2 cm - Name Value Normal Range PV Vmax 0.57 m/sec -
[2016-06-02] MEDS: Mometasone/Formoter 200/5 MDI INH SCH ×2 (11:28→20:39)
[2016-06-02] MEDS ORDERED: Gentamicin Trough Level 1 NOTE MISC FOLLOW UP ONE (11:30)
[2016-06-02] MEDS ORDERED: Gentamicin PEAK LEVEL* 1 NOTE MISC FOLLOW UP ONE (13:00)
[2016-06-02] MEDS ORDERED: Albuterol 2.5 MG/3 ML NEB.SOL* (0.083%) INH PRN (13:59)
[2016-06-02] MEDS ORDERED: Albuterol/Ipratropium NEB.SOL* Albuterol 2.5 MG/Ipratropium 0.5 MG 3 ML INH SCH (14:00)
[2016-06-02] MEDS ORDERED: Metolazone TAB* 5 MG PO ONE (14:13)
[2016-06-02] MEDS ORDERED: Bumetanide IV* 0.25 MG/ML 4 ML VIAL SLOW PUSH ONE (14:15)
[2016-06-02] MEDS ORDERED: BUMETANIDE IV SCH (15:00)
[2016-06-02] MEDS: BUMETANIDE IV SCH (15:25)
--- NOTE | 2016-06-02 16:30 | ED ---
Liliana Maki Matthew, scribed for Arthur Mccall MD on 05/31/16 at 1007 . Back Pain - HPI Summary HPI Summary: A 70 y/o female presents to the ED with constant right lower back and flank pain since 00:30 this morning. The pain is described as sharp and does not radiate. Associated symptoms include headache, neck pain - since last night, nausea, vomiting, and fever - 104 since 05:30 today. The patient has a Hx of kidney stones w/ associated infection. She had 3 cases in 2016 and 1 case in 2014. The patient had no relief with ibuprofen, oxycodone, or pepto bismol today. The patient takes potassium citrate 3x daily. She has been able to urinate since the pain started. She describes the pain as similar to her other kidney stones, but more severe than pervious episodes. PMHx includes HTN, HLD, and blindness. - History of Current Complaint Chief Complaint: EDBackInjuryPain Stated Complaint: VOMITING / FEVER Time Seen by Provider: 05/31/16 09:11 Hx Obtained From: Patient Onset/Duration: Gradual Onset, Lasting Hours, Still Present Onset/Duration: Started Hours Ago, Atraumatic, Still Present Timing: Constant Back Pain Location: Is Discrete @ - right flank and right lower back Severity Initially: Moderate Severity Currently: Moderate Pain Intensity: 10 Pain Scale Used: 0-10 Numeric Associated Signs And Symptoms: Positive: Fever, Abdominal Pain - RLQ, Flank Pain - Allergies/Home Medications Allergies/Adverse Reactions: Allergies Allergy/AdvReac Type Severity Reaction Status Date / Time Levofloxacin [From Levaquin] Allergy Severe Anaphylatic Verified 05/31/16 08:37 Shock Sulfa Drugs Allergy Intermediate Hives Verified 05/31/16 08:37 Latex Allergy ITCHY Verified 05/31/16 08:37 PIMPLE LIKE RASH Levothyroxine Allergy Rash And Verified 05/31/16 08:37 Itching PMH/Surg Hx/FS Hx/Imm Hx Endocrine/Hematology History: Reports: Hx Thyroid Disease Denies: Hx Diabetes Cardiovascular History: Reports: Hx Coronary Artery Disease, Hx Hypercholesterolemia, Hx Hypertension, Hx Peripheral Vascular Disease, Other Cardiovascular Problems/Disorders - cardiac cath Respiratory History: Reports: Hx Pulmonary Embolism - POST OP AFTER SHOULDER REPLACEMENT 2012 Denies: Hx Asthma, Hx Chronic Obstructive Pulmonary Disease (COPD) GI History: Denies: Hx Ulcer, Other GI Disorders History: Reports: Hx Kidney Infection, Hx Kidney Stones - BILAT, Hx Renal Disease - Kidney stones x 3, Other Problems/Disorders - Kidney stones July 2011 Musculoskeletal History: Reports: Hx Arthritis, Other Musculoskeletal History - Bilateral knee replacements, R shoulder replacement, fractured elbow Sensory History: Reports: Hx Cataracts, Hx Contacts or Glasses, Hx Glaucoma, Hx Legally Blind, Hx Vision Problem - Pt is legally blind, Hx Hearing Aid, Hx Hearing Problem, Other Sensory Impairments Opthamlomology History: Reports: Hx Cataracts, Hx Contacts or Glasses, Hx Glaucoma, Hx Legally Blind, Hx Vision Problem - Pt is legally blind, Other Sensory Impairments Neurological History: Reports: Hx Migraine, Hx Seizures, Other Neuro Impairments /Disorders - Hx seizures, none recently Psychiatric History: Denies: Hx Anxiety, Hx Depression - Cancer History Hx Chemotherapy: No Hx Radiation Therapy: No - Surgical History Surgery Procedure, Year, and Place: Hysterectomy September 2014, 1970 R eye cataract removed, 1989 L eye cataract removed, bilateral knee replacements, R shoulder replacement, 2011 cholecystectomy, plate/screws in R elbow, kidney stone treatment x 3 Hx Anesthesia Reactions: Yes - GFDS Infectious Disease History: No Infectious Disease History: Denies: Hx Hepatitis, Hx Human Immunodeficiency Virus (HIV), History Other Infectious Disease, Traveled Outside the [place] in Last 30 Days - Family History Known Family History: Positive: Cardiac Disease, Hypertension - Social History Alcohol Use: Rare Alcohol Amount: 3-4 PER YEAR Substance Use Type: Reports: None Hx Tobacco Use: No Smoking Status (MU): Never Smoked Tobacco Have You Smoked in the Last Year: No Review of Systems Positive: Fever. Negative: Chills Eyes: Negative Negative: Erythema ENT: Negative Negative: Sore Throat Cardiovascular: Negative Negative: Chest Pain Respiratory: Negative Negative: Shortness Of Breath Gastrointestinal: Other - Right sided flank pain Positive: Abdominal Pain - RLQ, Vomiting, Nausea. Negative: Diarrhea Genitourinary: Negative Negative: dysuria, hematuria Positive: Edema - pedal edema . Negative: Myalgia Skin: Negative Negative: Rash Neurological: Negative Negative: Headache Psychological: Normal All Other Systems Reviewed And Are Negative: Yes Physical Exam Triage Information Reviewed: Yes Vital Signs On Initial Exam: Initial Vitals Temp Pulse Resp BP Pulse Ox 101.5 F 123 20 145/67 99 05/31/16 08:37 05/31/16 08:37 05/31/16 08:37 05/31/16 08:37 05/31/16 08:37 Vital Signs Reviewed: Yes Appearance: Positive: Ill-Appearing, Pain Distress Skin: Positive: Warm, Dry Head/Face: Positive: Other - Normocephalic; Atraumatic Eyes: Positive: Conjunctiva Clear Dental: Negative: Cervical Lymphadenopathy Neck: Positive: Supple, No Lymphadenopathy Respiratory/Lung Sounds: Positive: Breath Sounds Present, Other - Normal Effort. Negative: Rales, Stridor, Tracheal Deviation, Wheezes Cardiovascular: Positive: Tachycardia. Negative: Murmur Abdomen Description: Positive: CVA Tenderness (R), Other: - RLQ tednerness. Negative: Distended, Guarding Musculoskeletal: Positive: Other - pitting edema of the LE Neurological: Positive: Alert, Oriented to Person Place, Time Diagnostics - Vital Signs Vital Signs Temp Pulse Resp BP Pulse Ox 05/31/16 08:37 101.5 F 123 20 145/67 99 - Laboratory Lab Results: Lab Results 05/31/16 05/31/16 05/31/16 Range/Units 09:10 09:10 09:10 WBC 3.9 (3.5-10.8) 10^3/ul RBC 4.65 (4.0-5.4) 10^6/ul Hgb 13.5 (12.0-16.0) g/dl Hct 42 (35-47) % MCV 89 (80-97) fL MCH 29 (27-31) pg MCHC 32 (31-36) g/dl RDW 14 (10.5-15) % Plt Count 161 (150-450) 10^3/ul MPV 8 (7.4-10.4) um3 Neut % (Auto) 94.4 H (38-83) % Lymph % (Auto) 4.9 L (25-47) % Caldwell % (Auto) 0.2 L (1-9) % Eos % (Auto) 0.1 (0-6) % Baso % (Auto) 0.4 (0-2) % Absolute Neuts (auto) 3.7 (1.5-7.7) 10^3/ul Absolute Lymphs (auto) 0.2 L (1.0-4.8) 10^3/ul Absolute Monos (auto) 0 (0-0.8) 10^3/ul Absolute Eos (auto) 0 (0-0.6) 10^3/ul Absolute Basos (auto) 0 (0-0.2) 10^3/ul Absolute Nucleated RBC 0.01 10^3/ul Nucleated RBC % 0.1 INR (Anticoag Therapy) 1.89 H (0.89-1.11) APTT 24.5 L (26.0-36.3) seconds Sodium 138 (133-145) mmol/L Potassium 3.7 (3.5-5.0) mmol/L Chloride 104 (101-111) mmol/L Carbon Dioxide 23 (22-32) mmol/L Anion Gap 11 (2-11) mmol/L BUN 36 H (6-24) mg/dL Creatinine 1.87 H (0.51-0.95) mg/dL Est GFR ( Amer) 34.3 (>60) Est GFR (Non-Af Amer) 26.7 (>60) BUN/Creatinine Ratio 19.3 (8-20) Glucose 234 H (70-100) mg/dL Hemoglobin A1c (Less than 6.0) % Lactic Acid (0.5-2.0) mmol/L Calcium 8.9 (8.6-10.3) mg/dL Total Bilirubin 0.70 (0.2-1.0) mg/dL AST 71 H (13-39) U/L ALT 64 H (7-52) U/L Alkaline Phosphatase 93 (34-104) U/L Troponin I 0.03 (<0.04) ng/mL Total Protein 6.4 (6.4-8.9) g/dL Albumin 3.3 (3.2-5.2) g/dL Globulin 3.1 (2-4) g/dL Albumin/Globulin Ratio 1.1 (1-3) Urine Color Urine Appearance Urine pH (5-9) Ur Specific Chadron (1.010-1.030) Urine Protein (Negative) Urine Ketones (Negative) Urine Blood (Negative) Urine Nitrate (Negative) Urine Bilirubin (Negative) Urine Urobilinogen (Negative) Ur Leukocyte Esterase (Negative) Urine WBC (Auto) (Absent) Urine RBC (Auto) (Absent) Ur Squamous Epith Cells (Absent) Urine Bacteria (Absent) Urine Glucose (Negative) 05/31/16 05/31/16 05/31/16 Range/Units 09:10 09:10 12:32 WBC (3.5-10.8) 10^3/ul RBC (4.0-5.4) 10^6/ul Hgb (12.0-16.0) g/dl Hct (35-47) % MCV (80-97) fL MCH (27-31) pg MCHC (31-36) g/dl RDW (10.5-15) % Plt Count (150-450) 10^3/ul MPV (7.4-10.4) um3 Neut % (Auto) (38-83) % Lymph % (Auto) (25-47) % Caldwell % (Auto) (1-9) % Eos % (Auto) (0-6) % Baso % (Auto) (0-2) % Absolute Neuts (auto) (1.5-7.7) 10^3/ul Absolute Lymphs (auto) (1.0-4.8) 10^3/ul Absolute Monos (auto) (0-0.8) 10^3/ul Absolute Eos (auto) (0-0.6) 10^3/ul Absolute Basos (auto) (0-0.2) 10^3/ul Absolute Nucleated RBC 10^3/ul Nucleated RBC % INR (Anticoag Therapy) (0.89-1.11) APTT (26.0-36.3) seconds Sodium (133-145) mmol/L Potassium (3.5-5.0) mmol/L Chloride (101-111) mmol/L Carbon Dioxide (22-32) mmol/L Anion Gap (2-11) mmol/L BUN (6-24) mg/dL Creatinine (0.51-0.95) mg/dL Est GFR ( Amer) (>60) Est GFR (Non-Af Amer) (>60) BUN/Creatinine Ratio (8-20) Glucose (70-100) mg/dL Hemoglobin A1c 6.5 H (Less than 6.0) % Lactic Acid 5.1 H* (0.5-2.0) mmol/L Calcium (8.6-10.3) mg/dL Total Bilirubin (0.2-1.0) mg/dL AST (13-39) U/L ALT (7-52) U/L Alkaline Phosphatase (34-104) U/L Troponin I (<0.04) ng/mL Total Protein (6.4-8.9) g/dL Albumin (3.2-5.2) g/dL Globulin (2-4) g/dL Albumin/Globulin Ratio (1-3) Urine Color Yellow Urine Appearance Cloudy Urine pH 5.0 (5-9) Ur Specific Chadron 1.009 L (1.010-1.030) Urine Protein 2+(100 mg/dl) H (Negative) Urine Ketones Negative (Negative) Urine Blood 3+ H (Negative) Urine Nitrate Negative (Negative) Urine Bilirubin Negative (Negative) Urine Urobilinogen Negative (Negative) Ur Leukocyte Esterase 2+ H (Negative) Urine WBC (Auto) 3+(>20/hpf) H (Absent) Urine RBC (Auto) 3+(>10/hpf) H (Absent) Ur Squamous Epith Cells Present H (Absent) Urine Bacteria 1+ H (Absent) Urine Glucose Negative (Negative) Result Diagrams: 06/02/16 06:05 06/02/16 06:05 Lab Statement: Any lab studies that have been ordered have been reviewed, and results considered in the medical decision making process. - Radiology CXR Xray Interpretation: Positive (See Comments) - IMPRESSION: LINEAR ATELECTASIS OF THE RIGHT LUNG BASE Radiology Interpretation Completed By: Radiologist - CT A/P CT CT Interpretation: Positive (See Comments) - IMPRESSION: BILATERAL NEPHROLITHIASIS WITH SEVERAL RIGHT URETERAL STONES AND SEVERE RIGHT-SIDED HYDRONEPHROSIS CT Interpretation Completed By: Radiologist - EKG 09:08 Cardiac Rate: Tachycardia - 124 bpm EKG Rhythm: Sinus Tachycardia EKG Interpretation: No STEMI Back Pain Course/Dx - Course Course Of Treatment: I went to the bedside and inflated the pressure bag infusion. She finished a 1500mL bolus, which improved her BP to 80s systolic. Dr. Cabrera (anesthesia) came to the bedside and further wishes to resuscitate the patient in the OR and give pressors in the OR. Fluids couldnt not be quickly administered due to limited venous access in the patients hand (22 gauge catheter) Assessment/Plan: Dr. Segura from anesthesia at bedside, aware fluids infusing and BPs in 80;s systolic, she will contine volume resuscitation in OR. - Diagnoses Provider Diagnoses: Severe sepsis, Ureteral obstruction - Provider Notifications Discussed Care of Patient With: Dr. Osborn (Urology) at 12:20 -- Notified of patient's history and will take the patient to surgery at 17:00 today. She is to be NPO. He recommended additional Abx and hospitalist admission. Dr. Ferrari (Hospitalist) at 12:25 -- Notified of patient's history and will admit the patient into his services. Dr. Osborn (Urology) at 13:06 -- Notified of patient's changing status and will preform the surgery as soon as the patient shows signs of improvement in the ED. - Critical Care Time Critical Care Time: 30-74 min - 60 minutes Discharge - Discharge Plan Condition: Guarded Disposition: ADMITTED TO [facility] documentation as recorded by the Liliana whyte Matthew accurately reflects the service I personally performed and the decisions made by , Arthur Mccall MD.
[2016-06-02] MEDS ORDERED: Digoxin IV* 0.5 MG/2 ML AMP (0.25 MG/ML) IV SLOW PU ONE ×2 (17:06→21:06)
[2016-06-02 17:54] LABS: Calcium 6.9 mg/dL (8.6-10.3); EGFR African American 16.7 (>60); Magnesium 1.9 mg/dL (1.9-2.7); Potassium 3.6 mmol/L (3.5-5.0)
[2016-06-02] MEDS ORDERED: Albumin Human 25%* 50 ML in PREMIX* 0 ML IV SCH (18:00)
[2016-06-02] MEDS: Ondansetron INJ* 2 MG/ML VIAL IV PRN (18:21)
[2016-06-02] MEDS: Acetaminophen TAB* 325 MG PO PRN (21:23)
[2016-06-03] MEDS ORDERED: Digoxin IV* 0.5 MG/2 ML AMP (0.25 MG/ML) IV SLOW PU ONE (01:00)
[2016-06-03] MEDS: Insulin LISPRO* 1 UNITS UNIT SUBCUT SCH ×6 (03:02→22:21)
[2016-06-03] MEDS: BUMETANIDE IV SCH (03:25)
[2016-06-03] MEDS: HYDROmorphone* 1 MG/ML 1 ML SYR IV SLOW PU PRN (04:21)
[2016-06-03] MEDS: Piperac/Tazob 3.375 gm in NS* 3.375 GM/100 ML BAG IVPB SCH ×3 (05:02→20:52)
[2016-06-03] MEDS: Ondansetron INJ* 2 MG/ML VIAL IV PRN ×2 (05:10→08:44)
[2016-06-03 06:03] LABS: BUN/Creatinine Ratio 16.9 (8-20); Calcium 7.3 mg/dL (8.6-10.3); EGFR African American 16.3 (>60); EGFR Non-African American 12.7 (>60); Hematocrit 35 % (35-47); Hemoglobin 11.2 g/dl (12.0-16.0); Mean Corpuscular HGB Conc 32 g/dl (31-36); Mean Corpuscular Hemoglobin 28 pg (27-31); Mean Corpuscular Volume 88 fL (80-97); Mean Platelet Volume 10 um3 (7.4-10.4); Phosphorus 4.1 mg/dL (2.5-5.0); Potassium 3.5 mmol/L (3.5-5.0); Red Blood Count 3.93 10^6/ul (4.0-5.4); Red Cell Distribution Width 15 % (10.5-15); White Blood Count 28.3 10^3/ul (3.5-10.8)
[2016-06-03 06:06] LABS: Add Diff/Slide Review? Slide Review Added; Comments Flag Yes
[2016-06-03 06:07] LABS: Troponin I 0.32 ng/mL (<0.04)
[2016-06-03] MEDS: Levothyroxine TAB* 50 MCG TAB PO SCH (06:20)
--- NOTE | 2016-06-03 07:56 | RAD ---
INDICATION: Bronchospasm, congestion. COMPARISON: Comparison is made with a prior chest x-ray study from May 31, 2016. TECHNIQUE: A portable view of the chest was obtained. FINDINGS: Cardiac and mediastinal contours appear to be within normal limits. The lungs are underinflated. There are small multiple infiltrates at both lung bases which appear new. IMPRESSION: EXPIRATORY EXAM, SMALL BIBASILAR INFILTRATES.
[2016-06-03] MEDS ORDERED: Sodium Bicarbonate 8.4% IV* 75 MEQ in NS 0.45% 1000 ML BAG* 1,000 ML IV SCH (08:00)
--- NOTE | 2016-06-03 08:39 | PN ---
Progress Note - Progress Note Note: [facility] Progress Note Weaned off pressors Developed weezing ytdy afternoon...suspected fluid overload...initiated forced diuresis and stopped IVF to which patient responded Also developed A Fib with RVR alt with SR with freq APCs....started Digoxin load This AM complaining of pain all over....legs, arms, back, chest, etc SBP 114 HR 98 RR 19 SpO2 98 (NC) SR on monitor UO >4.6 liters I/Os neg 3.2 liters Skin no diaphoresis, no cyanosis, multiple healed surgical scars in relation to joints Bandage Lt neck Sclerae anicteric, pupils equal Oral mucosa pink Lungs with bilateral BS, no wheezes, no rhonchi Cor RRR, no rub, no murmur Abd obese-moderate paniculus, (+)BS Ext large, mild-mod edema Rt arm with PICC Neuro awake, speech fluent WBC 28.3 Hgb 11.2 Plt 91 INR 1.1 K 3.5 Mg 2.0 Pi 4.1 BUN/Creat 60/3.56 Trops to 0.32 HCO3 30 Gluc 110-160 Urine Cx >100K E coli Blood Cx E coli (sensitive to Zosyn) plus Enterococcus (ampicillin sensitive) ECG ytdy when in SR...unremarkable ECHO with LVEF 50%..difficult ECHO because of body habitus CXR Rt basilar atelectasis, no PVC IMP: Septic Shock due to Rt pyelonephritis...now off pressors Bacteremia...E coli and Enterococcus Recurrent nephrolithiasis complicated by urinary tract infections Leucocytosis subsiding Acute Kidney Injury .... 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 Will decide re further Digoxin as day evolves...may need a brief course Discussed ICU nurse T>35 min, CCM services rendered
[2016-06-03] MEDS: Acetaminophen TAB* 325 MG PO PRN (08:44)
[2016-06-03] MEDS: Hydrocortisone INJ* 100 MG VIAL IV SCH ×2 (08:44→20:52)
[2016-06-03] MEDS: Aspirin EC Low Dose* 81 MG TAB.EC PO SCH (10:38)
[2016-06-03] MEDS: Atorvastatin* 20 MG TAB PO SCH (10:39)
[2016-06-03] MEDS: Mometasone/Formoter 200/5 MDI INH SCH ×2 (10:49→20:06)
--- NOTE | 2016-06-03 11:07 | RAD ---
Indication: Sepsis, pyelonephritis. CT of the abdomen and pelvis was performed without oral or IV contrast administration. Coronal and sagittal reconstructed images were obtained. Comparison is made with previous exam dated May 31, 2016. The lung bases demonstrates increasing bilateral pleural effusion with bibasilar atelectasis. Heart is of normal size without evidence of pericardial effusion. Liver is normal in size. No focal lesions or intrahepatic ductal dilatation is noted. The gallbladder has been resected with multiple surgical clips in the gallbladder fossa. The spleen is normal in size. No adrenal lesions are noted. Pancreas indicates no mass or pancreatic ductal dilatation. Common duct is not dilated. There is a right ureteral stent in place relieving prior right hydronephrosis. Perinephric fluid is still persistent although this may be residual from prior exam of calyceal rupture. Left kidney demonstrates multiple calculi however no definite hydronephrosis is noted. Atherosclerotic aorta is noted. No dilated loops of bowel are noted. INDICATION: RESOLUTION OF RIGHT HYDRONEPHROSIS WITH RIGHT URETERAL STENT IN PLACE. BILATERAL NEPHROLITHIASIS IS NOTED. PERINEPHRIC FLUID SURROUNDING THE RIGHT KIDNEY PERSISTS. THERE IS NEW BILATERAL PLEURAL EFFUSIONS AND BIBASAL ATELECTASIS WORSE ON THE RIGHT THAN ON THE LEFT.
[2016-06-03] MEDS: Sodium Chloride 5% OPTH.SOL* 15 ML BTL BOTH EYES SCH (11:35)
[2016-06-03] MEDS: PTO:Brimonidine P 0.1%(NF) 1 DROP BTL BOTH EYES SCH (11:36)
[2016-06-03] MEDS ORDERED: Heparin DRIP 25,000 UNITS(*) 25,000 UNITS/500 ML BAG IV SCH (13:45)
[2016-06-03] MEDS ORDERED: Heparin VIAL(*) 5000 UNITS/ML VIAL (FIVE THOUSAND) IV SCH (14:00)
[2016-06-03] MEDS ORDERED: Pantoprazole IV* 40 MG IV SCH (16:00)
[2016-06-03] MEDS: Lidocaine 2% JELLY* 30 GM TUBE TOPICAL SCH ×2 (17:08→20:52)
[2016-06-03] MEDS: HYDROcodone/ACETAMIN 5-325 MG* 1 TAB PO PRN (17:24)
[2016-06-03] MEDS ORDERED: Heparin VIAL(*) 5000 UNITS/ML VIAL (FIVE THOUSAND) SUBCUT SCH (22:00)
[2016-06-04] MEDS: Insulin LISPRO* 1 UNITS UNIT SUBCUT SCH ×6 (02:11→20:40)
[2016-06-04] MEDS: Piperac/Tazob 3.375 gm in NS* 3.375 GM/100 ML BAG IVPB SCH ×3 (05:12→20:42)
[2016-06-04 05:36] LABS: Hematocrit 35 % (35-47); Hemoglobin 11.2 g/dl (12.0-16.0); Mean Corpuscular HGB Conc 32 g/dl (31-36); Mean Corpuscular Hemoglobin 29 pg (27-31); Mean Corpuscular Volume 88 fL (80-97); Mean Platelet Volume 10 um3 (7.4-10.4); Red Blood Count 3.92 10^6/ul (4.0-5.4); Red Cell Distribution Width 15 % (10.5-15); White Blood Count 18.1 10^3/ul (3.5-10.8)
[2016-06-04 05:40] LABS: Add Diff/Slide Review? Slide Review Added; Comments Flag Yes
[2016-06-04 05:53] LABS: BUN/Creatinine Ratio 19.4 (8-20); Calcium 7.7 mg/dL (8.6-10.3); EGFR African American 17.5 (>60); EGFR Non-African American 13.6 (>60); Phosphorus 3.9 mg/dL (2.5-5.0); Potassium 2.9 mmol/L (3.5-5.0)
[2016-06-04] MEDS ORDERED: KCL 20 MEQ/100 ML IVPREMIX* 20 MEQ/100 ML BAG IV ONE (06:06)
[2016-06-04 06:13] LABS: Immature Granulocytes 5 % (0-9); Metamyelocytes % 1 % (0-2); Neutrophil % 78 % (38-83); Reactive Lymph % 5 % (0-6)
[2016-06-04 06:15] LABS: Macrocytosis 1+; Toxic Granulation 1+
[2016-06-04] MEDS: Levothyroxine TAB* 50 MCG TAB PO SCH (06:27)
[2016-06-04] MEDS: Hydrocortisone INJ* 100 MG VIAL IV SCH (08:51)
[2016-06-04] MEDS: Atorvastatin* 20 MG TAB PO SCH (08:51)
[2016-06-04] MEDS: Aspirin EC Low Dose* 81 MG TAB.EC PO SCH (08:51)
[2016-06-04] MEDS: PTO:Brimonidine P 0.1%(NF) 1 DROP BTL BOTH EYES SCH (08:52)
[2016-06-04] MEDS: Sodium Chloride 5% OPTH.SOL* 15 ML BTL BOTH EYES SCH (08:52)
[2016-06-04] MEDS: Lidocaine 2% JELLY* 30 GM TUBE TOPICAL SCH ×2 (08:52→14:24)
[2016-06-04] MEDS ORDERED: Potassium Chlor TAB* 20 MEQ TAB.ER PO ONE (10:00)
[2016-06-04] MEDS ORDERED: Heparin VIAL(*) 5000 UNITS/ML VIAL (FIVE THOUSAND) IV SCH (10:00)
[2016-06-04] MEDS: Mometasone/Formoter 200/5 MDI INH SCH ×2 (10:36→20:17)
[2016-06-04] MEDS: predniSONE TAB* 20 MG PO SCH (11:34)
--- NOTE | 2016-06-04 12:00 | PN ---
Progress Note - Progress Note Note: CRITICAL CARE MEDICINE Date: 06/04/16 Time: 925 SUBJECTIVE: Patient seen and examined. PHYSICAL EXAM: Vital Signs: Reviewed. Neurologic: awake, communicating well. blind. HEENT: pupils unequal. Trachea midline. Cardiovascular: S1 S2 Respiratory: dec at bases. Abdomen: Obese, soft, nt. No r/g/r. Extremities: Warm. 2+ edema LABS: Reviewed. IMAGING: Reviewed. MEDICATIONS: Reviewed. ASSESSMENT: 70 F Presenting with septic shock sec to obstructive uropathy/Pyelonepthritis sec to ecoli and enterococcus Acute renal failure sec to above and atn component; improved but still quite dysfunctional. Morbid obesity PAF - in NSR now. h/o PE, previously on xeralto Mild cardiac demand ischemia on admission -resolved Reactive hyperglycemia Treatment for relative adrenal insuff h/o hypot4 Blindness PLAN: Neurologic: stable. no acute needs. Cardiovascular: Perfusing well. Remains with interstial volume overload and allowing her to automobilze from here. She may be diuretic dependent for her degree of renal failure but see how she equilibrates off diuretics today. NSR. Used on dose of dig, but otherwise not requiring agents. Given h/o PE and anticoag, and PAF events, would place on heparin gtt until alternative agents can be utilized depending on where her renal function plateaus. asa, stain. Respiratory: Using IS. OOB. O2 wean. f/u fluid balance. Gastrointestinal: Po diet. Renal/Metabolic: allow her to mobilze fluid. f/u renal needs as numbers may look a bit worse for next day or so, but has great Urine out. May need nephro to follow non-urgently. Destiny for now. Infectious Disease: on zosyn, and given her disease severity, allergies, would prefer to complete total of 7-10days zosyn for her polymicrobial sepsis. Hematology: stable. heparin gtt. Endocrine: wean to prednisone. T4. Musculoskeletal: oob. pt as needed. Psych/Social: pt expressed understanding. Supportive and preventative care as ordered. SUP: po VTE prophylaxis: heparin gtt Dixon catheter given critical illness, monitoring needs for accurate assessment of ANDREW and KDIGO criteria for critically ill patient. Disposition: to floor with tele. Code Status: Full Critical Care Time: 30min Gaye Walker DO
[2016-06-04] MEDS: Heparin DRIP 25,000 UNITS(*) 25,000 UNITS/500 ML BAG IV SCH (12:15)
[2016-06-05] MEDS: Heparin DRIP 25,000 UNITS(*) 25,000 UNITS/500 ML BAG IV SCH ×2 (04:48→18:58)
[2016-06-05 05:00] LABS: Hematocrit 36 % (35-47); Hemoglobin 11.6 g/dl (12.0-16.0); Mean Corpuscular HGB Conc 33 g/dl (31-36); Mean Corpuscular Hemoglobin 29 pg (27-31); Mean Corpuscular Volume 88 fL (80-97); Mean Platelet Volume 10 um3 (7.4-10.4); Red Blood Count 4.06 10^6/ul (4.0-5.4); Red Cell Distribution Width 14 % (10.5-15); White Blood Count 12.8 10^3/ul (3.5-10.8)
[2016-06-05 05:08] LABS: Comments Flag Yes
[2016-06-05 05:10] LABS: BUN/Creatinine Ratio 23.2 (8-20); EGFR African American 21.9 (>60); Magnesium 1.8 mg/dL (1.9-2.7); Phosphorus 3.4 mg/dL (2.5-5.0); Potassium 2.8 mmol/L (3.5-5.0)
[2016-06-05] MEDS: Piperac/Tazob 3.375 gm in NS* 3.375 GM/100 ML BAG IVPB SCH ×3 (05:29→21:16)
[2016-06-05] MEDS: Levothyroxine TAB* 50 MCG TAB PO SCH (05:34)
[2016-06-05] MEDS ORDERED: Potassium Chlor TAB* 20 MEQ TAB.ER PO ONE (08:23)
[2016-06-05] MEDS: Insulin LISPRO* 1 UNITS UNIT SUBCUT SCH ×4 (08:37→21:22)
[2016-06-05] MEDS: Acetaminophen TAB* 325 MG PO PRN (08:38)
[2016-06-05] MEDS: Atorvastatin* 20 MG TAB PO SCH (08:38)
[2016-06-05] MEDS: Aspirin EC Low Dose* 81 MG TAB.EC PO SCH (08:38)
[2016-06-05] MEDS: Sodium Chloride 5% OPTH.SOL* 15 ML BTL BOTH EYES SCH (08:39)
[2016-06-05] MEDS: predniSONE TAB* 20 MG PO SCH (08:39)
[2016-06-05] MEDS: PTO:Brimonidine P 0.1%(NF) 1 DROP BTL BOTH EYES SCH (08:40)
--- NOTE | 2016-06-05 09:42 | PN ---
Subjective Date of Service: 06/05/16 Interval History: Patient reports feeling fairly well this morning. Some mild aches in her back and legs but otherwise no complaints. Says she has been eating and drinking well. No fever or chills. Family History: Unchanged from Admission Social History: Unchanged from Admission Past Medical History: Unchanged from Admission Objective Active Medications: Acetaminophen (Tylenol Tab*) 650 mg PO Q6H PRN Hydrocodone Bitart/Acetaminophen ([place] 5-325 Tab*) 2 tab PO Q6H PRN Albuterol (Ventolin 2.5 Mg/3 Ml Neb.Ale*) 2.5 mg INH Q4H PRN Aspirin (Aspirin Ec Low Dose*) 81 mg PO QAM JN Atorvastatin Calcium (Lipitor*) 20 mg PO QAM JN Brimonidine Tartrate (Alphagan P 0.1% (Nf)) 1 drop BOTH EYES DAILY JN Dextrose (D50w Syringe 50 Ml*) 12.5 gm IV PUSH .FOR FS < 60 - SS PRN Heparin Sodium (Porcine) (Heparin Flush Picc/Ml/Cvc(*)) 1 ml FLUSH 0600,1800 JN Hydromorphone HCl (Dilaudid Iv*) 0.5 mg IV SLOW PU Q4H PRN Piperacillin Sod/Tazobactam Sod (Zosyn 3.375 Gm In Ns Premix*) 3.375 gm in 100 mls @ 25 mls/hr IVPB Q8H JN Albumin Human 50 ml/ IV (Solution) 50 mls @ 0 mls/hr IV .(ENTER) JN Heparin Sodium/Dextrose (Heparin Drip 25,000 Units(*)) 25,000 units in 500 mls @ 0 mls/hr IV .NO BOLUSES PROTOCOL JN; Per Protocol Insulin Human Lispro (Humalog*) 0 units SUBCUT ACHS JN Levothyroxine Sodium (Synthroid Tab*) 50 mcg PO DAILY@0600 JN Lidocaine HCl (Lidocaine 2% Jelly*) 1 applic TOPICAL TID PRN Mometasone Furoate/Formoterol Fumar (Dulera 200/5 Mdi*) 2 puff INH BID JN Ondansetron HCl (Zofran Inj*) 4 mg IV Q6H PRN Prednisone (Deltasone Tab*) 20 mg PO DAILY JN Sodium Chloride (Hypertonic) (Karolina 128 Opth 5% Opth.Soll*) 1 drop BOTH EYES DAILY JN Vital Signs 06/04/16 06/04/16 06/04/16 10:00 10:03 10:06 Temperature Pulse Rate Respiratory 21 19 30 Rate Blood Pressure 143/53 (mmHg) O2 Sat by Pulse Oximetry 06/04/16 06/04/16 06/04/16 10:26 11:00 11:10 Temperature Pulse Rate 98 94 93 Respiratory 17 20 18 Rate Blood Pressure 140/72 (mmHg) O2 Sat by Pulse 93 91 92 Oximetry 06/05/16 06/05/16 06/05/16 07:18 08:00 08:55 Temperature 98.1 F Pulse Rate 78 74 Respiratory 18 20 18 Rate Blood Pressure 141/66 134/70 (mmHg) O2 Sat by Pulse 95 Oximetry Oxygen Devices in Use Now: None Appearance: Elderly, F, laying in chair in NAD Eyes: No Scleral Icterus Ears/Nose/Mouth/Throat: Mucous Membranes Moist Neck: NL Appearance and Movements; NL JVP Respiratory: Symmetrical Chest Expansion and Respiratory Effort, Clear to Auscultation Cardiovascular: NL Sounds; No Murmurs; No JVD, RRR Abdominal: NL Sounds; No Tenderness; No Distention Lymphatic: No Cervical Adenopathy Extremities: - - B/L LE edema Skin: - - Chronic LE skin changes Neurological: Alert and Oriented x 3 Lines/Tubes/Other Access: Clean, Dry and Intact Vega Result Diagrams: 06/05/16 04:45 06/05/16 04:45 Additional Lab and Data: Microbiology and Other Data: Microbiology 06/03/16 13:35 Aerobic Blood Culture - Preliminary Blood Venous No Growth Day 1 Anaerobic Blood Culture - Preliminary No Growth Day 1 06/03/16 13:30 Aerobic Blood Culture - Preliminary Blood Line No Growth Day 1 Anaerobic Blood Culture - Preliminary No Growth Day 1 06/02/16 11:25 Stool Occult Blood (TUAN) - Final Stool 05/31/16 15:42 Nasal Screen MRSA (PCR)(TUAN) - Final Nasal Mrsa Negative Assess/Plan/Problems-Billing Assessment: Septic shock 2/2 obstructive uropathy/pyelonephritis/hydronephrosis s/p stent placement by Dr. Osborn, ANDREW/ATN, paroxysmal AFib in a 70 yo F with hx of morbid obesity, recurrent nephrolithiasis, h/o PE on xarelto, blindness, HTN, CAD, hypothyroidism, seizure d/o - Patient Problems (1) Septic shock Current Visit: Yes Comment: 2/2 obstructive uropathy, E.coli and Enterococcus UTI/pyelo. Off pressors. Continue Zosyn (Day 6). Transitioned from solumedrol to PO prednisone. Dr. Osborn would like to take patient back to OR on 06/07 to replace R stent and place stent on L (2) ANDREW (acute kidney injury) Current Visit: No Comment: ATN. Improving. Continue to monitor BMP daily. Strict I/O, maintain vega for now. Hold on additional diuresis. (3) Paroxysmal a-fib Current Visit: Yes Comment: Continue heparin gtt for now. In NSR (4) HTN (hypertension) Current Visit: No Comment: Holding Lisinopril, atenolol. (5) Diabetes Current Visit: No Comment: HISS (6) CAD (coronary artery disease) Current Visit: Yes Comment: Continue ASA, statin. (7) Seizure disorder Current Visit: No Comment: Reports being taken off Topamax due to contribution to renal stones (8) DVT prophylaxis Current Visit: Yes Comment: Heparin
[2016-06-05] MEDS: Mometasone/Formoter 200/5 MDI INH SCH ×2 (12:13→20:05)
[2016-06-05] MEDS: HYDROcodone/ACETAMIN 5-325 MG* 1 TAB PO PRN (21:18)
[2016-06-05] MEDS: Lidocaine 2% JELLY* 30 GM TUBE TOPICAL PRN (22:35)
[2016-06-06] MEDS: Piperac/Tazob 3.375 gm in NS* 3.375 GM/100 ML BAG IVPB SCH ×3 (05:01→21:27)
[2016-06-06] MEDS: Levothyroxine TAB* 50 MCG TAB PO SCH (05:03)
[2016-06-06 05:25] LABS: Hematocrit 35 % (35-47); Hemoglobin 11.4 g/dl (12.0-16.0); Mean Corpuscular HGB Conc 33 g/dl (31-36); Mean Corpuscular Hemoglobin 29 pg (27-31); Mean Corpuscular Volume 88 fL (80-97); Mean Platelet Volume 10 um3 (7.4-10.4); Red Blood Count 3.96 10^6/ul (4.0-5.4); Red Cell Distribution Width 15 % (10.5-15); White Blood Count 12.4 10^3/ul (3.5-10.8)
[2016-06-06 05:27] LABS: Comments Flag Yes
[2016-06-06 05:28] LABS: Add Diff/Slide Review? Slide Review Added
[2016-06-06 05:40] LABS: Calcium 8.2 mg/dL (8.6-10.3); EGFR African American 33.9 (>60); EGFR Non-African American 26.4 (>60)
[2016-06-06 05:44] LABS: Potassium 2.7 mmol/L (3.5-5.0)
[2016-06-06] MEDS: Potassium Chlor TAB* 20 MEQ TAB.ER PO SCH ×2 (06:29→09:54)
[2016-06-06] MEDS: Mometasone/Formoter 200/5 MDI INH SCH ×2 (08:39→19:48)
[2016-06-06] MEDS: Heparin DRIP 25,000 UNITS(*) 25,000 UNITS/500 ML BAG IV SCH ×2 (09:30→23:09)
[2016-06-06] MEDS: Atenolol TAB* 50 MG PO SCH (10:00)
[2016-06-06] MEDS: Aspirin EC Low Dose* 81 MG TAB.EC PO SCH (10:00)
[2016-06-06] MEDS: Lisinopril TAB* 5 MG PO SCH (10:00)
[2016-06-06] MEDS: predniSONE TAB* 20 MG PO SCH (10:00)
[2016-06-06] MEDS: Atorvastatin* 20 MG TAB PO SCH (10:00)
[2016-06-06] MEDS: PTO:Brimonidine P 0.1%(NF) 1 DROP BTL BOTH EYES SCH (10:01)
[2016-06-06] MEDS: Sodium Chloride 5% OPTH.SOL* 15 ML BTL BOTH EYES SCH (10:01)
[2016-06-06] MEDS: Insulin LISPRO* 1 UNITS UNIT SUBCUT SCH ×4 (10:01→21:24)
--- NOTE | 2016-06-06 14:13 | PN ---
Subjective Date of Service: 06/06/16 Interval History: Patient seen this afternoon. Reports no new complaints. Still a bit of back discomfort. Legs feel good, has been ambulating. Understands plans for OR tomorrow. Family History: Unchanged from Admission Social History: Unchanged from Admission Past Medical History: Unchanged from Admission Objective Active Medications: Acetaminophen (Tylenol Tab*) 650 mg PO Q6H PRN Hydrocodone Bitart/Acetaminophen ([place] 5-325 Tab*) 2 tab PO Q6H PRN Albuterol (Ventolin 2.5 Mg/3 Ml Neb.Ale*) 2.5 mg INH Q4H PRN Aspirin (Aspirin Ec Low Dose*) 81 mg PO QAM JN Atenolol (Tenormin Tab*) 50 mg PO QAM JN Atorvastatin Calcium (Lipitor*) 20 mg PO QAM JN Brimonidine Tartrate (Alphagan P 0.1% (Nf)) 1 drop BOTH EYES DAILY JN Dextrose (D50w Syringe 50 Ml*) 12.5 gm IV PUSH .FOR FS < 60 - SS PRN Famotidine (Pepcid Iv*) 20 mg IV ONCE ONE Heparin Sodium (Porcine) (Heparin Flush Picc/Ml/Cvc(*)) 1 ml FLUSH 0600,1800 JN Hydromorphone HCl (Dilaudid Iv*) 0.5 mg IV SLOW PU Q4H PRN Piperacillin Sod/Tazobactam Sod (Zosyn 3.375 Gm In Ns Premix*) 3.375 gm in 100 mls @ 25 mls/hr IVPB Q8H JN Albumin Human 50 ml/ IV (Solution) 50 mls @ 0 mls/hr IV .(ENTER) [facility] Heparin Sodium/Dextrose (Heparin Drip 25,000 Units(*)) 25,000 units in 500 mls @ 0 mls/hr IV .NO BOLUSES PROTOCOL JN; Per Protocol Lactated Ringer's (Lactated Ringers 1000 Ml Bag*) 1,000 mls @ 125 mls/hr IV PER RATE [facility] Insulin Human Lispro (Humalog*) 0 units SUBCUT ACHS JN Levothyroxine Sodium (Synthroid Tab*) 50 mcg PO DAILY@0600 JN Lidocaine HCl (Lidocaine 2% Jelly*) 1 applic TOPICAL TID PRN Lidocaine/Sodium Bicarbonate (Buffered Lidocaine 1% Syrin*) 0.2 ml INTRADERM ONCE ONE Lisinopril (Prinivil Tab*) 5 mg PO QAM JN Mometasone Furoate/Formoterol Fumar (Dulera 200/5 Mdi*) 2 puff INH BID JN Ondansetron HCl (Zofran Inj*) 4 mg IV Q6H PRN Sodium Chloride (Hypertonic) (Karolina 128 Opth 5% Opth.Soll*) 1 drop BOTH EYES DAILY [facility] Vital Signs 06/05/16 06/05/16 06/05/16 15:14 20:00 20:02 Temperature 97.9 F 98.1 F Pulse Rate 89 56 Respiratory 20 18 20 Rate Blood Pressure 136/84 154/75 (mmHg) O2 Sat by Pulse 96 97 Oximetry 06/06/16 11:27 Temperature 98.0 F Pulse Rate 78 Respiratory 15 Rate Blood Pressure 129/59 (mmHg) O2 Sat by Pulse 98 Oximetry Oxygen Devices in Use Now: None Appearance: Elderly, F, sitting in chair in NAD Eyes: No Scleral Icterus Ears/Nose/Mouth/Throat: Mucous Membranes Moist Neck: NL Appearance and Movements; NL JVP Respiratory: Symmetrical Chest Expansion and Respiratory Effort, Clear to Auscultation Cardiovascular: NL Sounds; No Murmurs; No JVD, RRR Abdominal: NL Sounds; No Tenderness; No Distention - Obese Lymphatic: No Cervical Adenopathy Extremities: - - B/L LE edema Skin: - - Chronic LE skin changes Neurological: - - Blind, AOx3 Lines/Tubes/Other Access: Clean, Dry and Intact Vega Result Diagrams: 06/06/16 05:00 06/06/16 05:00 Additional Lab and Data: Microbiology and Other Data: Microbiology 06/03/16 13:35 Aerobic Blood Culture - Preliminary Blood Venous No Growth Day 1 Anaerobic Blood Culture - Preliminary No Growth Day 1 06/03/16 13:30 Aerobic Blood Culture - Preliminary Blood Line No Growth Day 1 Anaerobic Blood Culture - Preliminary No Growth Day 1 06/02/16 11:25 Stool Occult Blood (TUAN) - Final Stool 05/31/16 15:42 Nasal Screen MRSA (PCR)(TUAN) - Final Nasal Mrsa Negative Assess/Plan/Problems-Billing Assessment: Septic shock 2/2 obstructive uropathy/pyelonephritis/hydronephrosis s/p stent placement by Dr. Osborn, ANDREW/ATN, paroxysmal AFib in a 70 yo F with hx of morbid obesity, recurrent nephrolithiasis, h/o PE on xarelto, blindness, HTN, CAD, hypothyroidism, seizure d/o - Patient Problems (1) Septic shock Current Visit: Yes Comment: 2/2 obstructive uropathy, E.coli and Enterococcus UTI/pyelo. Off pressors. Continue Zosyn (Day 7). Transitioned from solumedrol to PO prednisone. Dr. Osborn would like to take patient back to OR on 06/07 to replace R stent and place stent on L, will make NPO after midnight. (2) ANDREW (acute kidney injury) Current Visit: No Comment: ATN. Improving. Continue to monitor BMP daily. Strict I/O, maintain vega for now. Hold on additional diuresis. Replete K (3) Paroxysmal a-fib Current Visit: Yes Comment: hx of PE. Continue heparin gtt for now. In NSR (4) HTN (hypertension) Current Visit: No Comment: Restart Atenolol and Lisinopril (5) Diabetes Current Visit: No Comment: HISS. Add Lantus (6) CAD (coronary artery disease) Current Visit: Yes Comment: Continue ASA, statin. (7) Seizure disorder Current Visit: No Comment: Reports being taken off Topamax due to contribution to renal stones (8) DVT prophylaxis Current Visit: Yes Comment: Heparin
[2016-06-06] MEDS: Acetaminophen TAB* 325 MG PO PRN (21:22)
[2016-06-06] MEDS: Insulin GLARGINE(*) 1 UNITS UNIT SUBCUT SCH (21:25)
[2016-06-06] MEDS: Ondansetron INJ* 2 MG/ML VIAL IV PRN (22:30)
[2016-06-07] MEDS: HYDROcodone/ACETAMIN 5-325 MG* 1 TAB PO PRN ×3 (02:42→21:59)
[2016-06-07] MEDS: Piperac/Tazob 3.375 gm in NS* 3.375 GM/100 ML BAG IVPB SCH ×3 (05:04→21:15)
[2016-06-07] MEDS ORDERED: Buffered Lidocaine 1% SYRIN* 3 ML/SYR SYRINGE INTRADERM ONE (06:00)
[2016-06-07] MEDS ORDERED: Famotidine IV* 10 MG/ML 2 ML (20 mg) IV ONE (06:00)
[2016-06-07] MEDS: Levothyroxine TAB* 50 MCG TAB PO SCH (06:10)
[2016-06-07 06:42] LABS: Hematocrit 34 % (35-47); Hemoglobin 11.4 g/dl (12.0-16.0); Mean Corpuscular HGB Conc 33 g/dl (31-36); Mean Corpuscular Hemoglobin 29 pg (27-31); Mean Corpuscular Volume 88 fL (80-97); Mean Platelet Volume 10 um3 (7.4-10.4); Red Blood Count 3.91 10^6/ul (4.0-5.4); Red Cell Distribution Width 15 % (10.5-15)
[2016-06-07 06:43] LABS: BUN/Creatinine Ratio 26.4 (8-20); Calcium 8.3 mg/dL (8.6-10.3); Potassium 3.1 mmol/L (3.5-5.0)
[2016-06-07 06:56] LABS: Add Diff/Slide Review? Slide Review Added; Comments Flag Yes
[2016-06-07] MEDS: Lisinopril TAB* 5 MG PO SCH (07:21)
[2016-06-07] MEDS ORDERED: Iohexol 180 (CONTRAST) 10 ML SDV IV ONE (08:34)
[2016-06-07] MEDS: Insulin LISPRO* 1 UNITS UNIT SUBCUT SCH ×4 (08:55→21:05)
[2016-06-07] MEDS: Mometasone/Formoter 200/5 MDI INH SCH ×2 (08:58→22:03)
[2016-06-07] MEDS: Aspirin EC Low Dose* 81 MG TAB.EC PO SCH (08:59)
[2016-06-07] MEDS: Atenolol TAB* 50 MG PO SCH (08:59)
[2016-06-07] MEDS: Atorvastatin* 20 MG TAB PO SCH (08:59)
[2016-06-07] MEDS: Potassium Chlor TAB* 20 MEQ TAB.ER PO SCH ×2 (08:59→21:03)
[2016-06-07] MEDS: Sodium Chloride 5% OPTH.SOL* 15 ML BTL BOTH EYES SCH (09:01)
[2016-06-07] MEDS: PTO:Brimonidine P 0.1%(NF) 1 DROP BTL BOTH EYES SCH (09:02)
[2016-06-07] MEDS ORDERED: KETAMINE HCL* 50 MG/ML 10 ML VIAL ONE (09:17)
[2016-06-07] MEDS ORDERED: Midazolam* 1 MG/ML 5 ML VIAL (5 MG) ONE (09:17)
[2016-06-07] MEDS ORDERED: fentaNYL* 50 MCG/ML 2 ML VIAL (100 MCG VIAL) ONE (09:17)
[2016-06-07] MEDS ORDERED: Dexamethasone IV* 4 MG/ML 1 ML (4 MG) ONE (09:19)
[2016-06-07] MEDS ORDERED: Lidocaine 2% PF* 5 ML VIAL ONE (09:19)
[2016-06-07] MEDS ORDERED: Propofol* 10 MG/ML 20 ML BTL IV PUSH ONE (09:19)
[2016-06-07] MEDS ORDERED: Ondansetron INJ* 2 MG/ML VIAL ONE (09:19)
[2016-06-07 09:22] LABS: Immature Granulocytes 1 % (0-9); Neutrophil % 80 % (38-83); RBC Morphology Normal (Normal)
[2016-06-07] MEDS ORDERED: Famotidine IV* 10 MG/ML 2 ML (20 mg) ONE (09:28)
[2016-06-07] MEDS ORDERED: oxyCODONE/Acetamin 5/325 MG* TAB PO PRN (10:54)
[2016-06-07] MEDS ORDERED: DiMENhydriNATE IV* 50 MG/ML VIAL IV PUSH PRN (10:54)
[2016-06-07] MEDS ORDERED: HYDROmorphone* 1 MG/ML 1 ML SYR ONE (11:19)
[2016-06-07] MEDS: HYDROmorphone* 1 MG/ML 1 ML SYR IV PRN ×2 (11:22→11:38)
[2016-06-07] MEDS ORDERED: oxyCODONE/Acetamin 5/325 MG* TAB ONE (11:26)
[2016-06-07] MEDS: Heparin DRIP 25,000 UNITS(*) 25,000 UNITS/500 ML BAG IV SCH (13:00)
--- NOTE | 2016-06-07 13:38 | RAD ---
CPT II Codes: 6045F. Indication: Left ureteral stent placement. Fluoroscopic services provided for referring physician. 8 seconds of fluoroscopy time was used. 4 spot images demonstrate bilateral hydronephrosis. Images demonstrates placement of bilateral ureteral stents. IMPRESSION: Fluoroscopic services provided for referring physician for bilateral ureteral stent placement.
--- NOTE | 2016-06-07 13:43 | PN ---
Subjective Date of Service: 06/07/16 Interval History: Patient seen this afternoon after procedure. No complaints other than she is hungry. Family History: Unchanged from Admission Social History: Unchanged from Admission Past Medical History: Unchanged from Admission Objective Active Medications: Acetaminophen (Tylenol Tab*) 650 mg PO Q6H PRN PRN Reason: FEVER/PAIN Last Admin: 06/06/16 21:22 Dose: 650 mg Hydrocodone Bitart/Acetaminophen ([place] 5-325 Tab*) 2 tab PO Q6H PRN PRN Reason: PAIN Last Admin: 06/07/16 02:42 Dose: 2 tab Albuterol (Ventolin 2.5 Mg/3 Ml Neb.Ale*) 2.5 mg INH Q4H PRN PRN Reason: SOB/WHEEZING Aspirin (Aspirin Ec Low Dose*) 81 mg PO QAM [facility] Last Admin: 06/07/16 08:59 Dose: 81 mg Atenolol (Tenormin Tab*) 50 mg PO QAM [facility] Last Admin: 06/07/16 08:59 Dose: 50 mg Atorvastatin Calcium (Lipitor*) 20 mg PO QAM [facility] Last Admin: 06/07/16 08:59 Dose: 20 mg Brimonidine Tartrate (Alphagan P 0.1% (Nf)) 1 drop BOTH EYES DAILY [facility] Last Admin: 06/07/16 09:02 Dose: 1 drop Dextrose (D50w Syringe 50 Ml*) 12.5 gm IV PUSH .FOR FS < 60 - SS PRN PRN Reason: FS < 60 Dimenhydrinate (Dramamine Iv*) 12.5 mg IV PUSH ONCE PRN PRN Reason: NAUSEA/VOMITING Stop: 06/07/16 10:55 Heparin Sodium (Porcine) (Heparin Flush Picc/Ml/Cvc(*)) 1 ml FLUSH 0600,1800 JN PRN Reason: Protocol Last Admin: 06/07/16 06:11 Dose: 1 ml Hydromorphone HCl (Dilaudid Iv*) 0.5 mg IV SLOW PU Q4H PRN PRN Reason: PAIN Last Admin: 06/03/16 04:21 Dose: 0.5 mg Hydromorphone HCl (Dilaudid Iv*) 0.2 mg IV Q5M PRN PRN Reason: PAIN - SEVERE Stop: 06/07/16 11:15 Last Admin: 06/07/16 11:38 Dose: 0.2 mg Piperacillin Sod/Tazobactam Sod (Zosyn 3.375 Gm In Ns Premix*) 3.375 gm in 100 mls @ 25 mls/hr IVPB Q8H [facility] Last Admin: 06/07/16 05:04 Dose: 25 mls/hr Albumin Human 50 ml/ IV (Solution) 50 mls @ 0 mls/hr IV .(ENTER) [facility] PRN Reason: As Directed Last Admin: 06/02/16 18:02 Dose: 60 mls/hr Heparin Sodium/Dextrose (Heparin Drip 25,000 Units(*)) 25,000 units in 500 mls @ 0 mls/hr IV .NO BOLUSES PROTOCOL [facility]; Per Protocol PRN Reason: Protocol Last Admin: 06/07/16 13:00 Dose: 39 mls/hr Lactated Ringer's (Lactated Ringers 1000 Ml Bag*) 1,000 mls @ 125 mls/hr IV PER RATE [facility] Last Admin: 06/07/16 09:03 Dose: 125 mls/hr Insulin Glargine (Lantus(*)) 10 units SUBCUT BEDTIME [facility] Last Admin: 06/06/16 21:25 Dose: 10 units Insulin Human Lispro (Humalog*) 0 units SUBCUT ACHS [facility] PRN Reason: Protocol Last Admin: 06/07/16 13:16 Dose: Not Given Levothyroxine Sodium (Synthroid Tab*) 50 mcg PO DAILY@0600 [facility] Last Admin: 06/07/16 06:10 Dose: 50 mcg Lidocaine HCl (Lidocaine 2% Jelly*) 1 applic TOPICAL TID PRN PRN Reason: BUTTOCK PAIN Last Admin: 06/05/16 22:35 Dose: 1 applic Lisinopril (Prinivil Tab*) 5 mg PO QAM [facility] Last Admin: 06/07/16 07:21 Dose: Not Given Mometasone Furoate/Formoterol Fumar (Dulera 200/5 Mdi*) 2 puff INH BID [facility] Last Admin: 06/07/16 08:58 Dose: 2 puff Ondansetron HCl (Zofran Inj*) 4 mg IV Q6H PRN PRN Reason: NAUSEA Last Admin: 06/06/16 22:30 Dose: 4 mg Oxycodone/Acetaminophen ([place] 5/325 Tab*) 1 tab PO ONCE PRN PRN Reason: PAIN - MODERATE Stop: 06/08/16 10:55 Last Admin: 06/07/16 11:27 Dose: 1 tab Potassium Chloride (Klor Con Er Tab*) 20 meq PO BID [facility] Last Admin: 06/07/16 08:59 Dose: 20 meq Sodium Chloride (Hypertonic) (Karolina 128 Opth 5% Opth.Soll*) 1 drop BOTH EYES DAILY [facility] Last Admin: 06/07/16 09:01 Dose: 1 drop Vital Signs 06/06/16 06/06/16 06/06/16 15:43 19:40 19:49 Temperature 98.6 F 98.5 F Pulse Rate 73 75 76 Respiratory 16 16 Rate Blood Pressure 106/67 132/62 (mmHg) O2 Sat by Pulse 97 95 97 Oximetry 06/06/16 06/06/16 06/07/16 20:00 23:56 02:42 Temperature 98.1 F Pulse Rate 68 Respiratory 16 20 18 Rate Blood Pressure 144/65 (mmHg) O2 Sat by Pulse 97 Oximetry 06/07/16 06/07/16 06/07/16 11:38 11:45 12:00 Temperature 97.9 F Pulse Rate 64 66 Respiratory 16 16 14 Rate Blood Pressure 142/70 139/72 (mmHg) O2 Sat by Pulse 95 95 Oximetry Oxygen Devices in Use Now: None Appearance: Middle-aged, F, sitting in chair in NAD Eyes: No Scleral Icterus Ears/Nose/Mouth/Throat: Mucous Membranes Moist Neck: NL Appearance and Movements; NL JVP Respiratory: Symmetrical Chest Expansion and Respiratory Effort, Clear to Auscultation Cardiovascular: NL Sounds; No Murmurs; No JVD, RRR Abdominal: NL Sounds; No Tenderness; No Distention Lymphatic: No Cervical Adenopathy Extremities: - - Mild B/L LE edema Skin: - - Chronic LE skin changes Neurological: Alert and Oriented x 3 Result Diagrams: 06/07/16 05:55 06/07/16 05:55 Additional Lab and Data: Microbiology and Other Data: Microbiology 06/03/16 13:35 Aerobic Blood Culture - Preliminary Blood Venous No Growth Day 1 Anaerobic Blood Culture - Preliminary No Growth Day 1 06/03/16 13:30 Aerobic Blood Culture - Preliminary Blood Line No Growth Day 1 Anaerobic Blood Culture - Preliminary No Growth Day 1 06/02/16 11:25 Stool Occult Blood (TUAN) - Final Stool 05/31/16 15:42 Nasal Screen MRSA (PCR)(TUAN) - Final Nasal Mrsa Negative Assess/Plan/Problems-Billing Assessment: Septic shock 2/2 obstructive uropathy/pyelonephritis/hydronephrosis s/p stent placement by Dr. Osborn, ANDREW/ATN, paroxysmal AFib in a 70 yo F with hx of morbid obesity, recurrent nephrolithiasis, h/o PE on xarelto, blindness, HTN, CAD, hypothyroidism, seizure d/o - Patient Problems (1) Septic shock Current Visit: Yes Comment: 2/2 obstructive uropathy, E.coli and Enterococcus UTI/pyelo, bacteremia. Off pressors. Dr. Osborn took patient back to OR on 06/07 for R stent exchange and L stent placement. Continue Zosyn (Day 11/14). (2) ANDREW (acute kidney injury) Current Visit: No Comment: ATN. Improving. Continue to monitor BMP daily. Strict I/O, maintain vega for now. Hold on additional diuresis. Replete K (3) Paroxysmal a-fib Current Visit: Yes Comment: hx of PE. Continue heparin gtt for now, if no signs of bleeding, can likely switch back to Xarelto on 06/08 (4) HTN (hypertension) Current Visit: No Comment: Continue Atenolol and Lisinopril (5) Diabetes Current Visit: No Comment: BGs have been high likely from heparin gtt ( dextrose). Hopefully can stop tomorrow. Continue Lantus and HISS for now. Patient not on any medications at home, HbA1c 6.5% (6) CAD (coronary artery disease) Current Visit: Yes Comment: Continue ASA, statin. (7) Seizure disorder Current Visit: No Comment: Reports being taken off Topamax due to contribution to renal stones (8) DVT prophylaxis Current Visit: Yes Comment: Heparin
[2016-06-07] MEDS: Insulin GLARGINE(*) 1 UNITS UNIT SUBCUT SCH (21:03)
[2016-06-08] MEDS: Heparin DRIP 25,000 UNITS(*) 25,000 UNITS/500 ML BAG IV SCH (02:37)
[2016-06-08] MEDS: HYDROcodone/ACETAMIN 5-325 MG* 1 TAB PO PRN ×2 (03:40→20:27)
[2016-06-08] MEDS: Piperac/Tazob 3.375 gm in NS* 3.375 GM/100 ML BAG IVPB SCH ×3 (05:26→22:33)
[2016-06-08] MEDS: Levothyroxine TAB* 50 MCG TAB PO SCH (05:27)
[2016-06-08 05:46] LABS: Hematocrit 25 % (35-47); Hemoglobin 8.3 g/dl (12.0-16.0); Mean Corpuscular HGB Conc 33 g/dl (31-36); Mean Corpuscular Hemoglobin 29 pg (27-31); Mean Corpuscular Volume 89 fL (80-97); Mean Platelet Volume 10 um3 (7.4-10.4); Red Blood Count 2.87 10^6/ul (4.0-5.4); Red Cell Distribution Width 15 % (10.5-15); White Blood Count 17.3 10^3/ul (3.5-10.8)
[2016-06-08 06:06] LABS: Add Diff/Slide Review? Slide Review Added; Comments Flag Yes
[2016-06-08 06:07] LABS: BUN/Creatinine Ratio 25.2 (8-20); Calcium 7.1 mg/dL (8.6-10.3); EGFR African American 65.4 (>60); EGFR Non-African American 50.8 (>60); Potassium 3.3 mmol/L (3.5-5.0)
[2016-06-08] MEDS: HYDROmorphone* 1 MG/ML 1 ML SYR IV SLOW PU PRN ×3 (08:51→20:27)
[2016-06-08] MEDS: Atorvastatin* 20 MG TAB PO SCH (08:58)
[2016-06-08] MEDS: Aspirin EC Low Dose* 81 MG TAB.EC PO SCH (08:59)
[2016-06-08] MEDS: Atenolol TAB* 50 MG PO SCH (08:59)
[2016-06-08] MEDS: Lisinopril TAB* 5 MG PO SCH (08:59)
[2016-06-08] MEDS: Potassium Chlor TAB* 20 MEQ TAB.ER PO SCH ×2 (08:59→22:00)
[2016-06-08] MEDS: Insulin LISPRO* 1 UNITS UNIT SUBCUT SCH ×4 (08:59→22:00)
[2016-06-08] MEDS: PTO:Brimonidine P 0.1%(NF) 1 DROP BTL BOTH EYES SCH (09:02)
[2016-06-08] MEDS: Sodium Chloride 5% OPTH.SOL* 15 ML BTL BOTH EYES SCH (09:02)
[2016-06-08] MEDS ORDERED: HYDROmorphone* 1 MG/ML 1 ML SYR IV SLOW PU ONE (09:35)
--- NOTE | 2016-06-08 09:40 | PN ---
Subjective Date of Service: 06/08/16 Interval History: New 01/14 left abdominal pain starting yesterday evening described as a stabbing , worse with moving her left leg with minimal relief from 0.5mg dilaudid this AM. Radiates from left to right across abdomen. New, has not experienced similar pain through hospital stay per report or chart review. Status post right ureteral stent replacement and new left placement 06/07/2016 Family History: Unchanged from Admission Social History: Unchanged from Admission Past Medical History: Unchanged from Admission Objective Active Medications: Acetaminophen (Tylenol Tab*) 650 mg PO Q6H PRN PRN Reason: FEVER/PAIN Last Admin: 06/06/16 21:22 Dose: 650 mg Hydrocodone Bitart/Acetaminophen ([place] 5-325 Tab*) 2 tab PO Q6H PRN PRN Reason: PAIN Last Admin: 06/08/16 03:40 Dose: 2 tab Albuterol (Ventolin 2.5 Mg/3 Ml Neb.Ale*) 2.5 mg INH Q4H PRN PRN Reason: SOB/WHEEZING Aspirin (Aspirin Ec Low Dose*) 81 mg PO QAM [facility] Last Admin: 06/08/16 08:59 Dose: 81 mg Atenolol (Tenormin Tab*) 50 mg PO QAM [facility] Last Admin: 06/08/16 08:59 Dose: 50 mg Atorvastatin Calcium (Lipitor*) [facility] Last Admin: 06/08/16 08:58 Dose: 20 mg Brimonidine Tartrate (Alphagan P 0.1% (Nf)) 1 drop BOTH EYES DAILY [facility] Last Admin: 06/08/16 09:02 Dose: 1 drop Dextrose (D50w Syringe 50 Ml*) 12.5 gm IV PUSH .FOR FS < 60 - SS PRN PRN Reason: FS < 60 Heparin Sodium (Porcine) (Heparin Flush Picc/Ml/Cvc(*)) 1 ml FLUSH 0600,1800 [facility] PRN Reason: Protocol Last Admin: 06/08/16 05:34 Dose: 1 ml Hydromorphone HCl (Dilaudid Iv*) 0.5 mg IV SLOW PU Q4H PRN PRN Reason: PAIN Last Admin: 06/08/16 08:51 Dose: 0.5 mg Hydromorphone HCl (Dilaudid Iv*) 0.5 mg IV SLOW PU ONCE ONE Stop: 06/08/16 09:36 Piperacillin Sod/Tazobactam Sod (Zosyn 3.375 Gm In Ns Premix*) 3.375 gm in 100 mls @ 25 mls/hr IVPB Q8H [facility] Last Admin: 06/08/16 05:26 Dose: 25 mls/hr Albumin Human 50 ml/ IV (Solution) 50 mls @ 0 mls/hr IV .(ENTER) [facility] PRN Reason: As Directed Last Admin: 06/02/16 18:02 Dose: 60 mls/hr Heparin Sodium/Dextrose (Heparin Drip 25,000 Units(*)) 25,000 units in 500 mls @ 0 mls/hr IV .NO BOLUSES PROTOCOL [facility]; Per Protocol PRN Reason: Protocol Last Admin: 06/08/16 02:37 Dose: 39 mls/hr Lactated Ringer's (Lactated Ringers 1000 Ml Bag*) 1,000 mls @ 125 mls/hr IV PER RATE [facility] Last Admin: 06/08/16 00:55 Dose: 125 mls/hr Insulin Glargine (Lantus(*)) 10 units SUBCUT BEDTIME [facility] Last Admin: 06/07/16 21:03 Dose: 10 units Insulin Human Lispro (Humalog*) 0 units SUBCUT ACHS [facility] PRN Reason: Protocol Last Admin: 06/08/16 08:59 Dose: 6 units Levothyroxine Sodium (Synthroid Tab*) 50 mcg PO DAILY@0600 [facility] Last Admin: 06/08/16 05:27 Dose: 50 mcg Lidocaine HCl (Lidocaine 2% Jelly*) 1 applic TOPICAL TID PRN PRN Reason: BUTTOCK PAIN Last Admin: 06/05/16 22:35 Dose: 1 applic Lisinopril (Prinivil Tab*) 5 mg PO QAM [facility] Last Admin: 06/08/16 08:59 Dose: 5 mg Mometasone Furoate/Formoterol Fumar (Dulera 200/5 Mdi*) 2 puff INH BID [facility] Last Admin: 06/07/16 22:03 Dose: 2 puff Ondansetron HCl (Zofran Inj*) 4 mg IV Q6H PRN PRN Reason: NAUSEA Last Admin: 06/06/16 22:30 Dose: 4 mg Oxycodone/Acetaminophen (Percocet 5/325 Tab*) 1 tab PO ONCE PRN PRN Reason: PAIN - MODERATE Stop: 06/08/16 10:55 Last Admin: 06/07/16 11:27 Dose: 1 tab Potassium Chloride (Klor Con Er Tab*) 20 meq PO BID [facility] Last Admin: 06/08/16 08:59 Dose: 20 meq Sodium Chloride (Hypertonic) ([place] 128 Opth 5% Opth.Soll*) 1 drop BOTH EYES DAILY [facility] Last Admin: 06/08/16 09:02 Dose: 1 drop Vital Signs 06/07/16 06/07/16 06/07/16 11:10 11:15 11:20 Temperature 97.2 F Pulse Rate 70 71 69 Respiratory 18 20 16 Rate Blood Pressure 132/66 146/66 148/67 (mmHg) O2 Sat by Pulse 100 100 99 Oximetry 06/07/16 06/07/16 06/07/16 11:22 11:27 11:30 Temperature Pulse Rate 66 Respiratory 16 16 16 Rate Blood Pressure 152/71 (mmHg) O2 Sat by Pulse 96 Oximetry 06/07/16 06/07/16 06/07/16 11:38 11:45 12:00 Temperature 97.9 F Pulse Rate 64 66 Respiratory 16 16 14 Rate Blood Pressure 142/70 139/72 (mmHg) O2 Sat by Pulse 95 95 Oximetry 06/07/16 06/07/16 06/07/16 12:22 12:38 13:27 Temperature Pulse Rate Respiratory 16 18 18 Rate Blood Pressure (mmHg) O2 Sat by Pulse Oximetry 06/07/16 06/07/16 06/07/16 15:35 15:51 17:51 Temperature 97.8 F Pulse Rate 75 Respiratory 16 16 Rate Blood Pressure 114/56 (mmHg) O2 Sat by Pulse 95 Oximetry 06/07/16 06/07/16 06/07/16 19:55 20:00 21:59 Temperature 98.0 F Pulse Rate 71 69 Respiratory 16 16 Rate Blood Pressure 119/55 (mmHg) O2 Sat by Pulse 95 98 Oximetry 06/07/16 06/07/16 06/08/16 23:46 23:59 03:36 Temperature 98.1 F 98.2 F Pulse Rate 73 66 Respiratory 16 18 20 Rate Blood Pressure 133/65 127/57 (mmHg) O2 Sat by Pulse 97 97 Oximetry 06/08/16 06/08/16 06/08/16 03:40 05:40 08:51 Temperature Pulse Rate Respiratory 18 16 18 Rate Blood Pressure (mmHg) O2 Sat by Pulse Oximetry Oxygen Devices in Use Now: None Appearance: in pain, moaning, sitting in chair, interactive, no respiratory distress Eyes: No Scleral Icterus, PERRLA Ears/Nose/Mouth/Throat: - - dry MM Neck: NL Appearance and Movements; NL JVP, Trachea Midline Respiratory: Symmetrical Chest Expansion and Respiratory Effort, - - difficult to appreciate with moaning during exam Cardiovascular: RRR Abdominal: - - soft, no rebound/guarding, very TTP with light touch over LLQ in region of notable hematoma Extremities: - - edema in arms and legs Skin: - - hematoma on abdominal wall, LLQ Neurological: Alert and Oriented x 3 Lines/Tubes/Other Access: Clean, Dry and Intact Vega Result Diagrams: 06/08/16 05:30 06/08/16 05:30 Additional Lab and Data: Microbiology and Other Data: Microbiology 06/03/16 13:35 Aerobic Blood Culture - Preliminary Blood Venous No Growth Day 1 Anaerobic Blood Culture - Preliminary No Growth Day 1 06/03/16 13:30 Aerobic Blood Culture - Preliminary Blood Line No Growth Day 1 Anaerobic Blood Culture - Preliminary No Growth Day 1 06/02/16 11:25 Stool Occult Blood ([facility]AN) - Final Stool 05/31/16 15:42 Nasal Screen MRSA (PCR)([facility]AN) - Final Nasal Mrsa Negative Assess/Plan/Problems-Billing Assessment: Septic shock 2/2 obstructive uropathy/pyelonephritis/hydronephrosis s/p stent placement by Dr. Osborn, ANDREW/ATN, paroxysmal AFib in a 70 yo F with hx of morbid obesity, recurrent nephrolithiasis, h/o PE , blindness, HTN, CAD, hypothyroidism, seizure d/o - Patient Problems (1) Abdominal pain Comment: In setting of new anemia on heparin gtt and intervention yesterday concern for hematoma vs retropertoneal bleed Check H/H now and lactic acid Urgent CT abd/pelvis without contrast to eval for bleed Additional dilaudid for pain (2) ANDREW (acute kidney injury) Comment: ATN mostly resolved Strict I/O Maintain vega for now. Holding on additional diuresis (3) Septic shock Comment: Present on admission now resolved 2/2 obstructive uropathy, E.coli and Enterococcus UTI/pyelo, bacteremia. Off pressors. Dr. Osborn took patient back to OR on 06/07 for R stent exchange and L stent placement. Continue Zosyn (Day 12/15). (4) CAD (coronary artery disease) Comment: Continue ASA, statin. (5) Diabetes Comment: BGs have been high likely from heparin gtt (dextrose). Continue Lantus and HISS for now. Patient not on any medications at home, HbA1c 6.5% (6) HTN (hypertension) Comment: Continue Atenolol and Lisinopril (7) Paroxysmal a-fib Comment: hx of PE. Stop heparin gtt 2/2 concern for acute blood loss anemia Holding Xarelto (8) Seizure disorder Comment: Reports being taken off Topamax due to contribution to renal stones (9) DVT prophylaxis Comment: SCDs in setting of potential bleed
[2016-06-08] MEDS ORDERED: Potassium Chlor TAB* 20 MEQ TAB.ER PO ONE (09:44)
[2016-06-08] MEDS: Mometasone/Formoter 200/5 MDI INH SCH ×2 (10:07→20:48)
[2016-06-08 10:14] LABS: Hematocrit 29 % (35-47); Hemoglobin 9.2 g/dl (12.0-16.0)
--- NOTE | 2016-06-08 10:36 | RAD ---
INDICATION: Left flank pain evaluate for retroperitoneal hematoma. COMPARISON: Comparison is made with a prior CT of the abdomen and pelvis from June 03, 2016. TECHNIQUE: A CT scan of the abdomen and pelvis was performed without intravenous or oral contrast. Contiguous axial sections were obtained from the lung bases through the symphysis pubis. Images were reconstructed in the coronal and sagittal planes. FINDINGS: There is mild dependent bilateral lower lobe subsegmental atelectasis. There are small bilateral pleural effusions which appear improved from the prior study. The liver is mildly enlarged and without significant focal abnormality on this noncontrast study. The patient is status post cholecystectomy. The spleen is normal in size. The pancreas appears to be within normal limits. The adrenal glands appear to be within normal limits. There are multiple bilateral renal calculi present. There are bilateral double-J stent catheters which demonstrate normal course. There is a small amount of air within both renal collecting systems likely secondary to catheter placement. No hydronephrosis is seen. There is a new large left-sided retroperitoneal collection with a fluid fluid level containing hyperdense and lower density material most consistent with a large retroperitoneal hematoma. This is located just lateral to the left psoas muscle and extends from the level of the left kidney into the pelvis. The collection measures 13.8 x 9.2 x 22.0 cm in size. This causes slight displacement of the left kidney anterior and is separate from the left kidney. The aorta is normal in caliber with mild calcific plaque present. No significant enlarged retroperitoneal lymph nodes are seen. The stomach, small and large bowel appear nondistended. The appendix is not visualized. There is mild descending and sigmoid diverticulosis without evidence for diverticulitis. The patient is status post hysterectomy. There is a small amount of free intraperitoneal fluid present within the left paracolic gutter and pelvis. No free intraperitoneal air is seen. No significant focal osseous abnormality is seen. IMPRESSION: 1. LARGE LEFT RETROPERITONEAL HEMATOMA, NEW. 2. STATUS POST BILATERAL DOUBLE-J STENT CATHETER PLACEMENT. NO EVIDENCE FOR HYDRONEPHROSIS. MULTIPLE BILATERAL RENAL CALCULI. 3. SMALL AMOUNT OF FREE INTRAPERITONEAL FLUID. 4. SMALL BILATERAL PLEURAL EFFUSIONS, IMPROVED.
[2016-06-08] MEDS ORDERED: NS 0.9% 1000 ML* 1,000 ML IV ONE (11:31)
[2016-06-08] MEDS: Ondansetron INJ* 2 MG/ML VIAL IV PRN (15:53)
[2016-06-08 16:52] LABS: Hematocrit 28 % (35-47); Hemoglobin 8.9 g/dl (12.0-16.0)
[2016-06-08 21:35] LABS: Hematocrit 28 % (35-47); Hemoglobin 9.2 g/dl (12.0-16.0)
[2016-06-08 21:44] LABS: Comments Flag Yes
[2016-06-08] MEDS: Insulin GLARGINE(*) 1 UNITS UNIT SUBCUT SCH (21:59)
[2016-06-09] MEDS: NS 0.9% 1000 ML* 1,000 ML IV SCH ×2 (00:10→05:05)
[2016-06-09 01:36] LABS: Hematocrit 27 % (35-47); Hemoglobin 9.1 g/dl (12.0-16.0)
[2016-06-09] MEDS: Piperac/Tazob 3.375 gm in NS* 3.375 GM/100 ML BAG IVPB SCH ×3 (05:12→21:03)
[2016-06-09] MEDS: Levothyroxine TAB* 50 MCG TAB PO SCH (05:37)
[2016-06-09] MEDS: HYDROmorphone* 1 MG/ML 1 ML SYR IV SLOW PU PRN ×4 (05:38→20:29)
[2016-06-09 06:08] LABS: Hematocrit 27 % (35-47); Hemoglobin 8.8 g/dl (12.0-16.0); Mean Corpuscular HGB Conc 33 g/dl (31-36); Mean Corpuscular Hemoglobin 28 pg (27-31); Mean Corpuscular Volume 86 fL (80-97); Mean Platelet Volume 10 um3 (7.4-10.4); Red Cell Distribution Width 15 % (10.5-15); White Blood Count 18.4 10^3/ul (3.5-10.8)
[2016-06-09 06:16] LABS: BUN/Creatinine Ratio 22.2 (8-20); Calcium 7.7 mg/dL (8.6-10.3); EGFR African American 38.1 (>60); EGFR Non-African American 29.6 (>60); Potassium 3.8 mmol/L (3.5-5.0)
--- NOTE | 2016-06-09 08:38 | PN ---
Subjective Date of Service: 06/09/16 Interval History: Events from yesterday reviewed RP bleed on CT scan with drop in BP Transferred to ICU Received 1u PRBC and several liter crystalloids H/H now stable Pain now 10 down from 24/01 yesterday No N/V, LH, SOB, CP Feels improved Family History: Unchanged from Admission Social History: Unchanged from Admission Past Medical History: Unchanged from Admission Objective Active Medications: Acetaminophen (Tylenol Tab*) 650 mg PO Q6H PRN PRN Reason: FEVER/PAIN Last Admin: 06/06/16 21:22 Dose: 650 mg Hydrocodone Bitart/Acetaminophen ([place] 5-325 Tab*) 2 tab PO Q6H PRN PRN Reason: PAIN Last Admin: 06/08/16 20:27 Dose: 2 tab Albuterol (Ventolin 2.5 Mg/3 Ml Neb.Ale*) 2.5 mg INH Q4H PRN PRN Reason: SOB/WHEEZING Atorvastatin Calcium (Lipitor*) 20 mg PO QAM [facility] Last Admin: 06/08/16 08:58 Dose: 20 mg Brimonidine Tartrate (Alphagan P 0.1% (Nf)) 1 drop BOTH EYES DAILY [facility] Last Admin: 06/08/16 09:02 Dose: 1 drop Dextrose (D50w Syringe 50 Ml*) 12.5 gm IV PUSH .FOR FS < 60 - SS PRN PRN Reason: FS < 60 Heparin Sodium (Porcine) (Heparin Flush Picc/Ml/Cvc(*)) 1 ml FLUSH 0600,1800 [facility] PRN Reason: Protocol Last Admin: 06/09/16 05:35 Dose: 1 ml Hydromorphone HCl (Dilaudid Iv*) 0.5 mg IV SLOW PU Q4H PRN PRN Reason: PAIN Piperacillin Sod/Tazobactam Sod (Zosyn 3.375 Gm In Ns Premix*) 3.375 gm in 100 mls @ 25 mls/hr IVPB Q8H [facility] Last Admin: 06/09/16 05:12 Dose: 25 mls/hr Sodium Chloride (Ns 0.9% 1000 Ml*) 1,000 mls @ 150 mls/hr IV PER RATE [facility] Stop: 06/10/16 06:24 Last Admin: 06/09/16 05:05 Dose: 150 mls/hr Insulin Glargine (Lantus(*)) 10 units SUBCUT BEDTIME [facility] Last Admin: 06/08/16 21:59 Dose: 10 units Insulin Human Lispro (Humalog*) 0 units SUBCUT ACHS [facility] PRN Reason: Protocol Last Admin: 06/08/16 22:00 Dose: 6 units Levothyroxine Sodium (Synthroid Tab*) 50 mcg PO DAILY@0600 [facility] Last Admin: 06/09/16 05:37 Dose: 50 mcg Lidocaine HCl (Lidocaine 2% Jelly*) 1 applic TOPICAL TID PRN PRN Reason: BUTTOCK PAIN Last Admin: 06/05/16 22:35 Dose: 1 applic Mometasone Furoate/Formoterol Fumar (Dulera 200/5 Mdi*) 2 puff INH BID [facility] Last Admin: 06/08/16 20:48 Dose: 2 puff Ondansetron HCl (Zofran Inj*) 4 mg IV Q6H PRN PRN Reason: NAUSEA Last Admin: 06/08/16 15:53 Dose: 4 mg Potassium Chloride (Klor Con Er Tab*) 20 meq PO BID [facility] Last Admin: 06/08/16 22:00 Dose: 20 meq Sodium Chloride (Hypertonic) ([place] 128 Opth 5% Opth.Soll*) 1 drop BOTH EYES DAILY [facility] Last Admin: 06/08/16 09:02 Dose: 1 drop Vital Signs 06/08/16 06/08/16 06/08/16 08:51 09:46 10:46 Temperature Pulse Rate Respiratory 18 24 12 Rate Blood Pressure (mmHg) O2 Sat by Pulse Oximetry 06/08/16 06/08/16 06/08/16 11:33 12:30 12:45 Temperature 97.1 F Pulse Rate 65 64 69 Respiratory 16 18 20 Rate Blood Pressure 75/41 107/44 112/51 (mmHg) O2 Sat by Pulse 94 97 99 Oximetry 06/08/16 06/08/16 06/08/16 12:46 13:00 13:15 Temperature 98.9 F Pulse Rate 67 64 62 Respiratory 17 16 15 Rate Blood Pressure 112/51 96/45 91/45 (mmHg) O2 Sat by Pulse 96 97 96 Oximetry 06/08/16 06/08/16 06/08/16 13:26 13:45 14:00 Temperature Pulse Rate 65 61 62 Respiratory 16 17 16 Rate Blood Pressure 89/46 90/44 95/43 (mmHg) O2 Sat by Pulse 97 96 96 Oximetry 06/08/16 06/08/16 06/08/16 14:15 14:30 14:45 Temperature Pulse Rate 59 62 62 Respiratory 14 16 15 Rate Blood Pressure 90/42 98/46 95/43 (mmHg) O2 Sat by Pulse 97 96 97 Oximetry 06/08/16 06/08/16 06/08/16 15:00 15:15 15:30 Temperature Pulse Rate 60 61 61 Respiratory 15 22 15 Rate Blood Pressure 98/49 98/47 105/47 (mmHg) O2 Sat by Pulse 97 97 97 Oximetry 06/08/16 06/08/16 06/08/16 15:45 15:49 16:00 Temperature Pulse Rate 63 68 Respiratory 22 21 19 Rate Blood Pressure 118/55 112/50 (mmHg) O2 Sat by Pulse 96 97 Oximetry 06/08/16 06/08/16 06/08/16 16:15 16:30 16:45 Temperature Pulse Rate 66 67 66 Respiratory 20 22 17 Rate Blood Pressure 99/46 99/40 93/40 (mmHg) O2 Sat by Pulse 95 95 95 Oximetry 06/08/16 06/08/16 06/08/16 17:00 17:30 17:45 Temperature Pulse Rate 68 68 67 Respiratory 22 17 17 Rate Blood Pressure 101/44 94/43 94/42 (mmHg) O2 Sat by Pulse 95 94 96 Oximetry 06/08/16 06/08/16 06/08/16 18:00 18:15 18:30 Temperature Pulse Rate 75 72 72 Respiratory 23 23 16 Rate Blood Pressure 107/48 109/42 96/38 (mmHg) O2 Sat by Pulse 98 98 98 Oximetry 06/08/16 06/08/16 06/08/16 19:00 19:30 19:50 Temperature Pulse Rate 70 71 Respiratory 25 19 18 Rate Blood Pressure 90/40 97/41 (mmHg) O2 Sat by Pulse 97 98 Oximetry 06/08/16 06/08/16 06/08/16 20:00 20:27 20:30 Temperature Pulse Rate 72 74 Respiratory 19 20 17 Rate Blood Pressure 110/43 109/43 (mmHg) O2 Sat by Pulse 99 97 Oximetry 06/08/16 06/08/16 06/08/16 21:00 21:26 21:28 Temperature Pulse Rate 74 75 Respiratory 26 13 18 Rate Blood Pressure 86/39 (mmHg) O2 Sat by Pulse 94 92 Oximetry 06/08/16 06/08/16 06/08/16 21:30 21:49 22:00 Temperature Pulse Rate 76 74 74 Respiratory 17 15 14 Rate Blood Pressure 76/37 82/38 78/37 (mmHg) O2 Sat by Pulse 92 92 93 Oximetry 06/08/16 06/08/16 06/08/16 22:05 22:30 23:00 Temperature Pulse Rate 77 73 72 Respiratory 17 13 14 Rate Blood Pressure 80/41 84/38 85/39 (mmHg) O2 Sat by Pulse 93 92 92 Oximetry 06/08/16 06/08/16 06/09/16 23:30 23:54 00:00 Temperature 98.4 F Pulse Rate 71 68 Respiratory 15 22 Rate Blood Pressure 84/43 (mmHg) O2 Sat by Pulse 93 96 Oximetry 06/09/16 06/09/16 06/09/16 00:01 00:30 00:59 Temperature Pulse Rate 69 70 Respiratory 18 15 30 Rate Blood Pressure 97/44 98/45 (mmHg) O2 Sat by Pulse 95 95 Oximetry 06/09/16 06/09/16 06/09/16 01:00 01:30 02:00 Temperature Pulse Rate 70 76 74 Respiratory 29 24 14 Rate Blood Pressure 106/45 96/43 93/46 (mmHg) O2 Sat by Pulse 94 92 92 Oximetry 06/09/16 06/09/16 06/09/16 02:30 03:00 03:30 Temperature Pulse Rate 74 76 75 Respiratory 14 14 16 Rate Blood Pressure 91/48 99/44 102/46 (mmHg) O2 Sat by Pulse 93 94 94 Oximetry 06/09/16 06/09/16 06/09/16 03:55 04:00 04:30 Temperature 98.3 F Pulse Rate 75 73 Respiratory 14 16 Rate Blood Pressure 94/47 96/44 (mmHg) O2 Sat by Pulse 95 91 Oximetry 06/09/16 06/09/16 06/09/16 05:00 05:30 05:38 Temperature Pulse Rate 75 76 Respiratory 15 16 18 Rate Blood Pressure 90/46 105/48 (mmHg) O2 Sat by Pulse 92 93 Oximetry 06/09/16 06/09/16 06/09/16 05:58 06:00 06:30 Temperature Pulse Rate 76 79 Respiratory 13 14 14 Rate Blood Pressure 98/47 (mmHg) O2 Sat by Pulse 91 91 Oximetry 06/09/16 06/09/16 06/09/16 07:00 07:30 08:00 Temperature Pulse Rate 79 77 75 Respiratory 15 13 13 Rate Blood Pressure 101/45 100/48 108/45 (mmHg) O2 Sat by Pulse 91 92 92 Oximetry 06/09/16 08:01 Temperature 98.1 F Pulse Rate Respiratory Rate Blood Pressure (mmHg) O2 Sat by Pulse Oximetry Oxygen Devices in Use Now: None Appearance: sitting 45 deg, interactive, NAD Eyes: No Scleral Icterus, PERRLA Ears/Nose/Mouth/Throat: Clear Oropharnyx, Mucous Membranes Moist Neck: NL Appearance and Movements; NL JVP, Trachea Midline Respiratory: Symmetrical Chest Expansion and Respiratory Effort, - - rales right base Cardiovascular: RRR, - - 2/6 holosystolic murmur Abdominal: - - mild TTP LLQ more towards flank Extremities: - - 2+ edema in arms and legs Skin: - - pretibial erythema LLL, abdomen LLQ with hematoma stbale in size Neurological: Alert and Oriented x 3 Result Diagrams: 06/09/16 05:50 06/09/16 05:50 Additional Lab and Data: Microbiology and Other Data: Microbiology 06/03/16 13:35 Aerobic Blood Culture - Preliminary Blood Venous No Growth Day 1 Anaerobic Blood Culture - Preliminary No Growth Day 1 06/03/16 13:30 Aerobic Blood Culture - Preliminary Blood Line No Growth Day 1 Anaerobic Blood Culture - Preliminary No Growth Day 1 06/02/16 11:25 Stool Occult Blood ([facility]) - Final Stool 05/31/16 15:42 Nasal Screen MRSA (PCR)([facility]) - Final Nasal Mrsa Negative Assess/Plan/Problems-Billing Assessment: Septic shock 2/2 obstructive uropathy/pyelonephritis/hydronephrosis s/p stent placement by Dr. Osborn, ANDREW/ATN, paroxysmal AFib in a 70 yo F with hx of morbid obesity, recurrent nephrolithiasis, h/o PE , blindness, HTN, CAD, hypothyroidism, seizure d/o with hospital stay complicated by RP bleed while on heparin - Patient Problems (1) Retroperitoneal bleed Comment: s/p 1 U PRBC and now stable H/H repeat H/H this afternoon [address] to eval size of RP bleed appreciate assistance. Stent on left was placed without difficulty Pain improved - decreased dilaudid from 1mg to 0.5mg q4hrs (2) ANDREW (acute kidney injury) Comment: ATN resolving but now worse Suspect pre renal component now in addition to ATN in setting of ACUTE BLOOD LOSS ANEMIA Finishing 2 liters NS from overnight - trend BMP Strict I/O Maintain vega for now. Holding on additional diuresis (3) Septic shock Comment: Present on admission now resolved 2/2 obstructive uropathy, E.coli and Enterococcus UTI/pyelo, bacteremia. Off pressors. Dr. Osborn took patient back to OR on 06/07 for R stent exchange and L stent placement. Continue Zosyn (Day 01/14). 06/09/16 (4) CAD (coronary artery disease) Comment: Continue statin. Stopped ASA in setting of active bleeding (5) Diabetes Comment: BGs have been high likely from heparin gtt (dextrose). 3/5 AM BG much improved. No change in insulin Continue Lantus and HISS for now. Patient not on any medications at home, HbA1c 6.5% (6) HTN (hypertension) Comment: Holding Atenolol and Lisinopril (7) Paroxysmal a-fib Comment: and hx of PE. Stop heparin gtt 2/2 concern for acute blood loss anemia Holding Xarelto Timing for reinitiation will be difficult currently in NSR (8) Seizure disorder Comment: Reports being taken off Topamax due to contribution to renal stones (9) DVT prophylaxis Comment: SCDs in setting of potential bleed
[2016-06-09] MEDS: Mometasone/Formoter 200/5 MDI INH SCH ×2 (09:22→21:28)
[2016-06-09] MEDS: HYDROcodone/ACETAMIN 5-325 MG* 1 TAB PO PRN ×2 (09:26→22:07)
[2016-06-09] MEDS: Atorvastatin* 20 MG TAB PO SCH (09:26)
[2016-06-09] MEDS: Potassium Chlor TAB* 20 MEQ TAB.ER PO SCH ×2 (09:26→21:03)
[2016-06-09] MEDS: Insulin LISPRO* 1 UNITS UNIT SUBCUT SCH ×4 (09:27→21:02)
--- NOTE | 2016-06-09 09:28 | RAD ---
INDICATION: Retroperitoneal hemorrhage follow-up. COMPARISON: Comparison is made with a prior CT of the abdomen and pelvis from June 08, 2016. TECHNIQUE: A CT scan of the abdomen and pelvis was performed without intravenous or oral contrast. Contiguous axial sections were obtained from the lung bases through the symphysis pubis. Images were reconstructed in the coronal and sagittal planes. FINDINGS: There are small bilateral pleural effusions which have progressed slightly from the prior study. There are dependent bilateral lower lobe infiltrates most consistent with atelectasis. The liver is mildly enlarged without significant focal abnormality on this noncontrast study. The patient is status post cholecystectomy. The spleen appears to be within normal limits in size. The pancreas is within normal limits in size. There is mild stranding around the pancreas possibly related to the retroperitoneal hemorrhage or alternatively pancreatitis. Recommend clinical correlation. The adrenal glands appear to be within normal limits. There are multiple bilateral renal calculi present. There are bilateral double-J stent catheters present. No hydronephrosis is seen. The aorta is normal in caliber without significant calcific plaque. There is a large area of retroperitoneal hemorrhage present on the left side beginning superiorly at the level of the left kidney and extending into the pelvis. This appears unchanged significantly in size from the prior exam measuring approximately 13.8 x 9.2 x 22.0 cm. There is a fluid fluid level present which is unchanged consistent with mixed components of hemorrhage. There is subcutaneous edema present in the left lateral abdominal wall which has increased from the prior study. No significant enlarged retroperitoneal lymph nodes are seen. The stomach, small and large bowel appear nondistended. The appendix is within normal limits. There is mild descending and sigmoid diverticulosis without evidence for diverticulitis. The patient is status post hysterectomy. There is a small amount of free intraperitoneal fluid present within the left paracolic gutter and pelvis which is unchanged. No free intraperitoneal air is seen. No significant focal osseous abnormality is seen. IMPRESSION: 1. SMALL BILATERAL PLEURAL EFFUSIONS SLIGHTLY INCREASED. 2. LARGE LEFT-SIDED RETROPERITONEAL HEMORRHAGE UNCHANGED SIGNIFICANTLY IN SIZE. 3. SMALL AMOUNT OF FREE FREE INTRAPERITONEAL FLUID, UNCHANGED. 4. MILD STRANDING AROUND THE PANCREAS POSSIBLY SECONDARY TO THE RETROPERITONEAL HEMORRHAGE OR ALTERNATIVELY PANCREATITIS. RECOMMEND CLINICAL CORRELATION. 5. BILATERAL RENAL CALCULI STATUS POST BILATERAL DOUBLE-J STENT CATHETER PLACEMENT.
[2016-06-09] MEDS: PTO:Brimonidine P 0.1%(NF) 1 DROP BTL BOTH EYES SCH (10:14)
[2016-06-09] MEDS: Sodium Chloride 5% OPTH.SOL* 15 ML BTL BOTH EYES SCH (10:14)
[2016-06-09 16:32] LABS: Hematocrit 26 % (35-47); Hemoglobin 8.8 g/dl (12.0-16.0)
--- NOTE | 2016-06-09 20:19 | RAD ---
INDICATION: Swollen right upper extremity with PICC in place. COMPARISON: There are no prior studies available for comparison. TECHNIQUE: Multiple real-time, color flow and Doppler tracings of the right upper extremity were obtained. FINDINGS: The axillary, brachial and basilic veins all demonstrate normal compressibility, augmentation with compression and phasic response with respiration. The radial and ulnar arteries demonstrate normal compressibility. Note is made of a PICC within the cephalic and subclavian veins. There is a thrombus around the PICC in the cephalic vein which appears occluded. The subclavian and internal jugular veins also demonstrate normal color flow imaging and phasic response with respiration. IMPRESSION: SUPERFICIAL VENOUS THROMBOSIS THROUGHOUT THE CEPHALIC VEIN.
[2016-06-09] MEDS: Insulin GLARGINE(*) 1 UNITS UNIT SUBCUT SCH (21:01)
--- NOTE | 2016-06-10 04:15 | OP ---
DATE OF OPERATION: 06/07/16 - ROOM #402 DATE OF : 47 SURGEON: Agustin Osborn MD ANESTHESIOLOGIST: An Louis MD ANESTHESIA: General. PRE-OP DIAGNOSES: 1. Bilateral renal calculi. 2. Status post placement of right ureteral stent. 3. Recent episode of urosepsis, recovered. POST-OP DIAGNOSES: 1. Bilateral renal calculi. 2. Status post placement of right ureteral stent. 3. Recent episode of urosepsis, recovered. OPERATIVE PROCEDURE: 1. Cystoscopy. 2. Bilateral retrograde pyelographies. 3. Right ureteral stent exchange (6-Iraqi). 4. Left ureteral stent insertion (6-Iraqi). INDICATIONS: Ms. Zhao is a 70-year-old white female who has bilateral renal calculi and who presented one week ago with urosepsis and obstructing right proximal ureteral calculus. She had urgent placement of right ureteral stent. The patient had a stormy course because of her urosepsis and is presently recovered and will be discharged in the next few days. Because of the presence of the stones in the left kidney which can drop and predispose her to another episode of sepsis and because the right stent that was placed during the sepsis episode might be colonized with bacteria, the patient is brought into the OR for the above procedures. PATHOLOGY AT CYSTOSCOPY: The bladder mucosa showed some irritation from the presence of the Dixon catheter. The distal limb of the stent was seen coming from the right ureteral orifice. The left orifice looked normal. There were no suspicious bladder lesions seen. Bilateral retrograde pyelographies showed no hydronephrosis. DESCRIPTION OF PROCEDURE: After successful general anesthesia, the patient was placed in the lithotomy position and was prepped and draped in the usual manner. Cystoscopy was performed and the bladder was inspected. The distal limb of the right stent was pulled out to the level of the urethral meatus. A flexible-tip guidewire was introduced into the lumen of the stent and positioned in the area of the renal pelvis and the stent was removed. Retrograde pyelography was then confirmed and a size 6-Iraqi stent was then placed with the proximal end coiling in the right renal pelvis and the distal end coiling inside the bladder. Attention was then directed to the left side. A flexible tip guidewire was introduced into the left ureteral orifice and positioned in the area of the renal pelvis. Retrograde pyelography was performed. A size 6-Iraqi stent was then placed with the proximal end coiling in the renal pelvis and the distal end coiling inside the bladder. A size 18-Iraqi Dixon catheter was then placed. The patient tolerated the procedures well and left the operating room in good condition. PLAN: The plan is to bring the patient back in when she is fully recovered from her sepsis and bilateral ureteroscopies and pyeloscopies will be performed. We will try to attempt at rendering her stone free. [id number]/[facility] #: [id number] MTDD
[2016-06-10] MEDS: Levothyroxine TAB* 50 MCG TAB PO SCH (05:21)
[2016-06-10] MEDS: Piperac/Tazob 3.375 gm in NS* 3.375 GM/100 ML BAG IVPB SCH (05:21)
[2016-06-10 05:22] LABS: Hematocrit 26 % (35-47); Hemoglobin 8.6 g/dl (12.0-16.0); Mean Corpuscular HGB Conc 33 g/dl (31-36); Mean Corpuscular Hemoglobin 29 pg (27-31); Mean Corpuscular Volume 87 fL (80-97); Mean Platelet Volume 10 um3 (7.4-10.4); Red Blood Count 2.99 10^6/ul (4.0-5.4); Red Cell Distribution Width 15 % (10.5-15); White Blood Count 17.4 10^3/ul (3.5-10.8)
[2016-06-10 05:42] LABS: BUN/Creatinine Ratio 20.4 (8-20); Calcium 8.2 mg/dL (8.6-10.3); EGFR African American 45.3 (>60); EGFR Non-African American 35.2 (>60); Potassium 3.4 mmol/L (3.5-5.0)
[2016-06-10] MEDS: Potassium Chlor TAB* 20 MEQ TAB.ER PO SCH ×2 (08:49→21:43)
[2016-06-10] MEDS: Acetaminophen TAB* 325 MG PO PRN ×2 (08:49→23:47)
[2016-06-10] MEDS: Atorvastatin* 20 MG TAB PO SCH (08:49)
[2016-06-10] MEDS: Insulin LISPRO* 1 UNITS UNIT SUBCUT SCH ×4 (08:49→21:42)
[2016-06-10] MEDS: PTO:Brimonidine P 0.1%(NF) 1 DROP BTL BOTH EYES SCH (08:53)
[2016-06-10] MEDS: Sodium Chloride 5% OPTH.SOL* 15 ML BTL BOTH EYES SCH (08:53)
--- NOTE | 2016-06-10 10:14 | RAD ---
INDICATION: Pneumonia. COMPARISON: Comparison is made with a prior chest x-ray study from June 03 2016. Correlation is also made with a prior chest x-ray study from May 05, 2016. TECHNIQUE: Dual-energy PA and lateral views of the chest were obtained. FINDINGS: The heart is within normal limits in size. Mediastinal and hilar contours appear within normal limits. The lungs are hyperinflated with flattening of the diaphragms consistent with chronic obstructive pulmonary disease. There is a small left pleural effusion and left basilar infiltrate which has progressed slightly from the prior study. There is a PICC present on the right side which demonstrates normal course. The catheter tip projects over the superior vena cava. IMPRESSION: 1. SMALL LEFT BASILAR INFILTRATE AND LEFT PLEURAL EFFUSION SLIGHTLY PROGRESSED. 2. FINDINGS CONSISTENT WITH COPD.
[2016-06-10] MEDS: Mometasone/Formoter 200/5 MDI INH SCH ×2 (10:18→20:52)
[2016-06-10] MEDS ORDERED: Furosemide IV* 10 MG/ML 2 ML VIAL (20 MG) IV ONE (10:22)
[2016-06-10] MEDS ORDERED: Vancomycin per Pharmacy* NOTE FOLLOW UP PRN (10:31)
--- NOTE | 2016-06-10 10:38 | PN ---
Subjective Date of Service: 06/10/16 Interval History: Seen at bedside Pain improving Has no SOB, CP, N/V Worried that her legs are enlarged Family History: Unchanged from Admission Social History: Unchanged from Admission Past Medical History: Unchanged from Admission Objective Active Medications: Acetaminophen (Tylenol Tab*) 650 mg PO Q6H PRN PRN Reason: FEVER/PAIN Last Admin: 06/10/16 08:49 Dose: 650 mg Albuterol (Ventolin 2.5 Mg/3 Ml Neb.Ale*) 2.5 mg INH Q4H PRN PRN Reason: SOB/WHEEZING Atorvastatin Calcium (Lipitor*) 20 mg PO QAM [facility] Last Admin: 06/10/16 08:49 Dose: 20 mg Brimonidine Tartrate (Alphagan P 0.1% (Nf)) 1 drop BOTH EYES DAILY [facility] Last Admin: 06/10/16 08:53 Dose: 1 drop Dextrose (D50w Syringe 50 Ml*) 12.5 gm IV PUSH .FOR FS < 60 - SS PRN PRN Reason: FS < 60 Heparin Sodium (Porcine) (Heparin Flush Picc/Ml/Cvc(*)) 1 ml FLUSH 0600,1800 [facility] PRN Reason: Protocol Last Admin: 06/10/16 05:23 Dose: 1 ml Hydromorphone HCl (Dilaudid Iv*) 0.5 mg IV SLOW PU Q4H PRN PRN Reason: PAIN Last Admin: 06/09/16 20:29 Dose: 0.5 mg Piperacillin Sod/Tazobactam Sod (Zosyn 3.375 Gm In Ns Premix*) 3.375 gm in 100 mls @ 25 mls/hr IVPB Q8H [facility] Last Admin: 06/10/16 05:21 Dose: 25 mls/hr Vancomycin HCl 1,500 mg/ (Sodium Chloride) 250 mls @ 166.667 mls/hr IVPB ONCE ONE PRN Reason: Protocol Stop: 06/10/16 12:29 Insulin Glargine (Lantus(*)) 10 units SUBCUT BEDTIME [facility] Last Admin: 06/09/16 21:01 Dose: 10 units Insulin Human Lispro (Humalog*) 0 units SUBCUT ACHS [facility] PRN Reason: Protocol Last Admin: 06/10/16 08:49 Dose: 3 units Levothyroxine Sodium (Synthroid Tab*) 50 mcg PO DAILY@0600 [facility] Last Admin: 06/10/16 05:21 Dose: 50 mcg Lidocaine HCl (Lidocaine 2% Jelly*) 1 applic TOPICAL TID PRN PRN Reason: BUTTOCK PAIN Last Admin: 06/05/16 22:35 Dose: 1 applic Mometasone Furoate/Formoterol Fumar (Dulera 200/5 Mdi*) 2 puff INH BID [facility] Last Admin: 06/10/16 10:18 Dose: Not Given Ondansetron HCl (Zofran Inj*) 4 mg IV Q6H PRN PRN Reason: NAUSEA Last Admin: 06/08/16 15:53 Dose: 4 mg Pharmacy Consult (Vancomycin Per Pharmacy*) 1 note FOLLOW UP . PRN PRN Reason: PER PROTOCOL Potassium Chloride (Klor Con Er Tab*) 20 meq PO BID [facility] Last Admin: 06/10/16 08:49 Dose: 20 meq Sodium Chloride (Hypertonic) (Karolina 128 Opth 5% Opth.Soll*) 1 drop BOTH EYES DAILY [facility] Last Admin: 06/10/16 08:53 Dose: 1 drop Vital Signs 06/09/16 06/09/16 06/09/16 10:36 11:00 11:30 Temperature Pulse Rate 80 83 Respiratory 16 19 24 Rate Blood Pressure 104/41 107/40 (mmHg) O2 Sat by Pulse 92 92 Oximetry 06/09/16 06/09/16 06/09/16 12:00 12:11 12:12 Temperature 99 F Pulse Rate 83 Respiratory 16 19 Rate Blood Pressure (mmHg) O2 Sat by Pulse 93 Oximetry 06/09/16 06/09/16 06/09/16 12:46 13:00 13:30 Temperature Pulse Rate 77 82 Respiratory 15 17 Rate Blood Pressure 107/54 107/39 127/40 (mmHg) O2 Sat by Pulse 96 95 Oximetry 06/09/16 06/09/16 06/09/16 14:00 14:17 15:00 Temperature Pulse Rate 82 83 Respiratory 17 27 17 Rate Blood Pressure 111/49 125/47 (mmHg) O2 Sat by Pulse 94 95 Oximetry 06/09/16 06/09/16 06/09/16 16:00 17:00 18:51 Temperature 100.0 F Pulse Rate 81 89 Respiratory 16 28 18 Rate Blood Pressure 130/45 144/48 157/68 (mmHg) O2 Sat by Pulse 98 99 Oximetry 06/09/16 06/09/16 06/09/16 20:29 20:44 21:29 Temperature Pulse Rate Respiratory 20 20 20 Rate Blood Pressure (mmHg) O2 Sat by Pulse Oximetry 06/09/16 06/09/16 06/10/16 22:07 23:41 00:07 Temperature 97.9 F Pulse Rate 82 Respiratory 20 16 16 Rate Blood Pressure 105/43 (mmHg) O2 Sat by Pulse 99 Oximetry 06/10/16 06/10/16 06/10/16 04:14 07:15 10:18 Temperature 98.2 F 100.5 F Pulse Rate 87 87 80 Respiratory 16 18 18 Rate Blood Pressure 122/41 146/47 (mmHg) O2 Sat by Pulse 95 99 97 Oximetry Oxygen Devices in Use Now: None Appearance: obese, sitting in chair, pleasant, NAD Eyes: No Scleral Icterus, PERRLA Ears/Nose/Mouth/Throat: Clear Oropharnyx, Mucous Membranes Moist Neck: NL Appearance and Movements; NL JVP, Trachea Midline Respiratory: Symmetrical Chest Expansion and Respiratory Effort, Clear to Auscultation Cardiovascular: NL Sounds; No Murmurs; No JVD, RRR Abdominal: NL Sounds; No Tenderness; No Distention, No Hepatosplenomegaly Lymphatic: No Cervical Adenopathy Extremities: - - 3+ weeping LE edema Skin: - - LLQ to left flank with healing hematoma Neurological: Alert and Oriented x 3 Lines/Tubes/Other Access: Clean, Dry and Intact Vega, Clean, Dry and Intact PICC Line Result Diagrams: 06/10/16 05:00 06/10/16 05:00 Additional Lab and Data: Microbiology and Other Data: Microbiology 06/03/16 13:35 Aerobic Blood Culture - Preliminary Blood Venous No Growth Day 1 Anaerobic Blood Culture - Preliminary No Growth Day 1 06/03/16 13:30 Aerobic Blood Culture - Preliminary Blood Line No Growth Day 1 Anaerobic Blood Culture - Preliminary No Growth Day 1 06/02/16 11:25 Stool Occult Blood (TUAN) - Final Stool 05/31/16 15:42 Nasal Screen MRSA (PCR)(TUAN) - Final Nasal Mrsa Negative Assess/Plan/Problems-Billing Assessment: Septic shock 2/2 obstructive uropathy/pyelonephritis/hydronephrosis s/p stent placement by Dr. Osborn, ANDREW/ATN, paroxysmal AFib in a 70 yo F with hx of morbid obesity, recurrent nephrolithiasis, h/o recurrent PE , blindness, HTN, non obstructive CAD on [facility] [place] (per pt report) hypothyroidism, seizure d /o with hospital stay complicated by RP bleed while on heparin - Patient Problems (1) Systolic heart failure Comment: Chronic compensated Now with significant LE edema in setting of blood and crystalloids Lasix 20mg IV today 06/10/16 (2) Retroperitoneal bleed Comment: s/p 1 U PRBC and now stable H/H CT indicates stable hematoma size appreciate assistance. Stent on left was placed without difficulty Pain improved - decreased dilaudid from 1mg to 0.5mg q4hrs Difficulty will be in determining when to restart AC (3) ANDREW (acute kidney injury) Comment: ATN resolving Suspect pre renal component now in addition to ATN in setting of ACUTE BLOOD LOSS ANEMIA Trend Strict I/O Maintain vega (4) Septic shock Status: Resolved Comment: Present on admission now resolved 2/2 obstructive uropathy, E.coli and Enterococcus UTI/pyelo, bacteremia. Off pressors. Dr. Osborn took patient back to OR on 06/07 for R stent exchange and L stent placement. received Zosyn 10 days - last 06/09/16 (5) CAD (coronary artery disease) Comment: Discussed with pt and No h/o [place] Had C without stenting in [place] Continue statin. Stopped ASA in setting of active bleeding (6) Diabetes Comment: Continue Lantus and HISS for now. Patient not on any medications at home, HbA1c 6.5% (7) HTN (hypertension) Comment: Holding Atenolol and Lisinopril Start lasix for edema and BP control with close eye on kidney fxn (8) Paroxysmal a-fib Comment: and hx of recurrent PE. - last 03/2015 Stopped heparin gtt 2/2 concern for acute blood loss anemia Holding Xarelto Timing for reinitiation will be difficult currently in NSR (9) Seizure disorder Comment: Reports being taken off Topamax due to contribution to renal stones (10) DVT prophylaxis Comment: SCDs in setting of bleed
[2016-06-10] MEDS ORDERED: Vancomycin(*) 1,500 MG in NS 0.9% 250 ML* 250 ML IVPB ONE (11:00)
[2016-06-10 12:52] LABS: Urine Bacteria Absent (Absent); Urine Bilirubin Negative (Negative); Urine Glucose 3+(>=500 mg/dL) (Negative); Urine Nitrite Negative (Negative)
[2016-06-10] MEDS: Vancomycin(*) 1,000 MG in NS 0.9% 250 ML* 250 ML IVPB SCH (19:42)
[2016-06-10] MEDS: HYDROmorphone* 1 MG/ML 1 ML SYR IV SLOW PU PRN (21:43)
[2016-06-10] MEDS: Insulin GLARGINE(*) 1 UNITS UNIT SUBCUT SCH (21:43)
[2016-06-11] MEDS: HYDROmorphone* 1 MG/ML 1 ML SYR IV SLOW PU PRN ×2 (04:11→19:08)
[2016-06-11] MEDS: Vancomycin(*) 1,000 MG in NS 0.9% 250 ML* 250 ML IVPB SCH ×3 (04:11→19:56)
[2016-06-11] MEDS: Levothyroxine TAB* 50 MCG TAB PO SCH (06:40)
[2016-06-11] MEDS: Mometasone/Formoter 200/5 MDI INH SCH ×2 (08:30→20:39)
[2016-06-11 08:49] LABS: Hematocrit 26 % (35-47); Hemoglobin 8.4 g/dl (12.0-16.0); Mean Corpuscular HGB Conc 33 g/dl (31-36); Mean Corpuscular Hemoglobin 29 pg (27-31); Mean Corpuscular Volume 88 fL (80-97); Mean Platelet Volume 9 um3 (7.4-10.4); Red Blood Count 2.91 10^6/ul (4.0-5.4); Red Cell Distribution Width 15 % (10.5-15); White Blood Count 11.1 10^3/ul (3.5-10.8)
[2016-06-11] MEDS: Atorvastatin* 20 MG TAB PO SCH (08:50)
[2016-06-11] MEDS: PTO:Brimonidine P 0.1%(NF) 1 DROP BTL BOTH EYES SCH (08:51)
[2016-06-11] MEDS: Potassium Chlor TAB* 20 MEQ TAB.ER PO SCH ×2 (08:51→22:01)
[2016-06-11] MEDS: Sodium Chloride 5% OPTH.SOL* 15 ML BTL BOTH EYES SCH (08:52)
[2016-06-11] MEDS: Insulin LISPRO* 1 UNITS UNIT SUBCUT SCH ×4 (08:52→22:02)
[2016-06-11 09:04] LABS: BUN/Creatinine Ratio 19.8 (8-20); Calcium 8.3 mg/dL (8.6-10.3); EGFR African American 56.7 (>60); EGFR Non-African American 44.1 (>60); Potassium 3.6 mmol/L (3.5-5.0)
[2016-06-11] MEDS ORDERED: Furosemide IV* 10 MG/ML 2 ML VIAL (20 MG) IV SLOW PU ONE (10:30)
[2016-06-11] MEDS ORDERED: Vancomycin Trough Check NOTE FOLLOW UP ONE (12:00)
[2016-06-11] MEDS: Acetaminophen TAB* 325 MG PO PRN (16:24)
--- NOTE | 2016-06-11 16:59 | PN ---
Subjective Date of Service: 06/11/16 Interval History: Seen and examined with at bedside Pain 2/10 over left lower abdomen Feeling better today. Would like to go home but understands she will DONNY placement Family History: Unchanged from Admission Social History: Unchanged from Admission Past Medical History: Unchanged from Admission Objective Active Medications: Acetaminophen (Tylenol Tab*) 650 mg PO Q6H PRN PRN Reason: FEVER/PAIN Last Admin: 06/11/16 16:24 Dose: 650 mg Albuterol (Ventolin 2.5 Mg/3 Ml Neb.Ale*) 2.5 mg INH Q4H PRN PRN Reason: SOB/WHEEZING Atorvastatin Calcium (Lipitor*) 20 mg PO QAM [facility] Last Admin: 06/11/16 08:50 Dose: 20 mg Brimonidine Tartrate (Alphagan P 0.1% (Nf)) 1 drop BOTH EYES DAILY [facility] Last Admin: 06/11/16 08:51 Dose: 1 drop Dextrose (D50w Syringe 50 Ml*) 12.5 gm IV PUSH .FOR FS < 60 - SS PRN PRN Reason: FS < 60 Heparin Sodium (Porcine) (Heparin Flush Picc/Ml/Cvc(*)) 1 ml FLUSH 0600,1800 [facility] PRN Reason: Protocol Last Admin: 06/11/16 14:20 Dose: 1 ml Hydromorphone HCl (Dilaudid Iv*) 0.5 mg IV SLOW PU Q4H PRN PRN Reason: PAIN Last Admin: 06/11/16 04:11 Dose: 0.5 mg Vancomycin HCl 1,000 mg/ (Sodium Chloride) 250 mls @ 166.667 mls/hr IVPB Q8H [facility] Last Admin: 06/11/16 12:29 Dose: 166.667 mls/hr Insulin Glargine (Lantus(*)) 10 units SUBCUT BEDTIME [facility] Last Admin: 06/10/16 21:43 Dose: 10 units Insulin Human Lispro (Humalog*) 0 units SUBCUT ACHS [facility] PRN Reason: Protocol Last Admin: 06/11/16 12:29 Dose: 6 units Levothyroxine Sodium (Synthroid Tab*) 50 mcg PO DAILY@0600 [facility] Last Admin: 06/11/16 06:40 Dose: 50 mcg Lidocaine HCl (Lidocaine 2% Jelly*) 1 applic TOPICAL TID PRN PRN Reason: BUTTOCK PAIN Last Admin: 06/05/16 22:35 Dose: 1 applic Mometasone Furoate/Formoterol Fumar (Dulera 200/5 Mdi*) 2 puff INH BID [facility] Last Admin: 06/11/16 08:30 Dose: 2 puff Ondansetron HCl (Zofran Inj*) 4 mg IV Q6H PRN PRN Reason: NAUSEA Last Admin: 06/08/16 15:53 Dose: 4 mg Pharmacy Consult (Vancomycin Per Pharmacy*) 1 note FOLLOW UP . PRN PRN Reason: PER PROTOCOL Potassium Chloride (Klor Con Er Tab*) 20 meq PO BID [facility] Last Admin: 06/11/16 08:51 Dose: 20 meq Sodium Chloride (Hypertonic) (Karolina 128 Opth 5% Opth.Soll*) 1 drop BOTH EYES DAILY [facility] Last Admin: 06/11/16 08:52 Dose: 1 drop Vital Signs 06/10/16 06/10/16 06/10/16 19:45 20:53 21:43 Temperature Pulse Rate 91 Respiratory 18 13 18 Rate Blood Pressure (mmHg) O2 Sat by Pulse 97 Oximetry 06/10/16 06/10/16 06/11/16 22:43 23:13 04:11 Temperature 98.6 F Pulse Rate 92 Respiratory 18 16 20 Rate Blood Pressure 139/51 (mmHg) O2 Sat by Pulse 100 Oximetry 06/11/16 06/11/16 06/11/16 05:11 07:12 08:00 Temperature 98.4 F Pulse Rate 81 Respiratory 18 18 18 Rate Blood Pressure 136/53 (mmHg) O2 Sat by Pulse 100 Oximetry 06/11/16 06/11/16 08:32 16:14 Temperature 97.9 F Pulse Rate 82 90 Respiratory 16 24 Rate Blood Pressure 172/63 (mmHg) O2 Sat by Pulse 100 99 Oximetry Oxygen Devices in Use Now: None Appearance: obese, sitting in chair, NAD Eyes: No Scleral Icterus, PERRLA Ears/Nose/Mouth/Throat: Clear Oropharnyx, Mucous Membranes Moist Neck: NL Appearance and Movements; NL JVP, Trachea Midline Respiratory: Symmetrical Chest Expansion and Respiratory Effort, Clear to Auscultation Cardiovascular: RRR Abdominal: NL Sounds; No Tenderness; No Distention, No Hepatosplenomegaly Lymphatic: No Cervical Adenopathy Extremities: - - 2-3 LE edema weeping fluid from posterior calves Skin: - - hematoma over left lower abdomen Neurological: Alert and Oriented x 3 Lines/Tubes/Other Access: Clean, Dry and Intact Vega Result Diagrams: 06/11/16 08:27 06/11/16 08:27 Additional Lab and Data: Microbiology and Other Data: Microbiology 06/03/16 13:35 Aerobic Blood Culture - Preliminary Blood Venous No Growth Day 1 Anaerobic Blood Culture - Preliminary No Growth Day 1 06/03/16 13:30 Aerobic Blood Culture - Preliminary Blood Line No Growth Day 1 Anaerobic Blood Culture - Preliminary No Growth Day 1 06/02/16 11:25 Stool Occult Blood (TUAN) - Final Stool 05/31/16 15:42 Nasal Screen MRSA (PCR)([facility]) - Final Nasal Mrsa Negative Assess/Plan/Problems-Billing Assessment: Septic shock 2/2 obstructive uropathy/pyelonephritis/hydronephrosis s/p stent placement by Dr. Osborn, ANDREW/ATN, paroxysmal AFib in a 70 yo F with hx of morbid obesity, recurrent nephrolithiasis, h/o recurrent PEs , blindness, HTN, non obstructive CAD on [facility] [place] (per pt report) hypothyroidism, seizure d/ o with hospital stay complicated by RP bleed while on heparin - Patient Problems (1) Leukocytosis Comment: With low grade fever 3 Started vancomycin 06/10 with improvement in WBC today. Unclear association as RP bleed could have been to blame. I do not think she warrents a full coarse of vancomycin for unclear source but will continue until discharge (2) Systolic heart failure Comment: Chronic compensated Now with significant LE edema in setting of blood and crystalloids Lasix 20mg IV started 06/10/16 (3) Retroperitoneal bleed Comment: s/p 1 U PRBC and now stable H/H CT indicates stable hematoma size appreciate assistance. Stent on left was placed without difficulty Pain improved - decreased dilaudid from 1mg to 0.5mg q4hrs No evidence based guidelines regarding reinstitution of AC in setting of RP bleed. In this case patient has a bleeding event with unidentified source (in retroperitoneum) and high risk indication for anticoagulation (recurrent PEs). We discussed risks and benefits together and will not restart AC at this time. I recommended at least 2-4 weeks to be discussed further with PCP. Additionally recommended that xarelto not be restarted in preference for coumadin (4) ANDREW (acute kidney injury) Comment: ATN resolving Suspect pre renal component now in addition to ATN in setting of ACUTE BLOOD LOSS ANEMIA Trend Strict I/O Maintain vega (5) Septic shock Status: Resolved Comment: Present on admission now resolved 2/2 obstructive uropathy, E.coli and Enterococcus UTI/pyelo, bacteremia. Off pressors. Dr. Osborn took patient back to OR on 06/07 for R stent exchange and L stent placement. received Zosyn 10 days - last 06/09/16 (6) CAD (coronary artery disease) Comment: Discussed with pt and No h/o [place] Had LHC without stenting in 2011 at [place] Continue statin. Stopped ASA in setting of active bleeding (7) Diabetes Comment: Continue Lantus and HISS for now. Patient not on any medications at home, HbA1c 6.5% (8) HTN (hypertension) Comment: Holding Lisinopril Restart atenolol 25 mg (1/2 home dose) in AM 3/8 Start lasix for edema and BP control with close eye on kidney fxn (9) Paroxysmal a-fib Comment: and hx of recurrent PE. - last 03/2015 Stopped heparin gtt 2/2 concern for acute blood loss anemia Holding Xarelto Timing for reinitiation will be difficult currently in NSR (10) Seizure disorder Comment: Reports being taken off Topamax due to contribution to renal stones (11) DVT prophylaxis Comment: SCDs in setting of bleed
[2016-06-11] MEDS: Insulin GLARGINE(*) 1 UNITS UNIT SUBCUT SCH (22:01)
[2016-06-11] MEDS: Nystatin TOP POWDER* 15 GM BTL TOPICAL SCH (22:03)
[2016-06-11] MEDS ORDERED: HYDROmorphone* 1 MG/ML 1 ML SYR IV SLOW PU ONE (22:04)
[2016-06-12] MEDS: Vancomycin(*) 1,000 MG in NS 0.9% 250 ML* 250 ML IVPB SCH (03:43)
[2016-06-12] MEDS: Levothyroxine TAB* 50 MCG TAB PO SCH (05:35)
[2016-06-12 05:50] LABS: Hematocrit 24 % (35-47); Hemoglobin 7.8 g/dl (12.0-16.0); Mean Corpuscular HGB Conc 33 g/dl (31-36); Mean Corpuscular Hemoglobin 29 pg (27-31); Mean Corpuscular Volume 87 fL (80-97); Mean Platelet Volume 8 um3 (7.4-10.4); Red Cell Distribution Width 15 % (10.5-15); White Blood Count 10.8 10^3/ul (3.5-10.8)
[2016-06-12 06:16] LABS: BUN/Creatinine Ratio 20.2 (8-20); Calcium 8.3 mg/dL (8.6-10.3); EGFR African American 55.2 (>60); EGFR Non-African American 42.9 (>60); Potassium 3.9 mmol/L (3.5-5.0)
[2016-06-12] MEDS ORDERED: Atenolol TAB* 25 MG PO SCH (09:00)
[2016-06-12] MEDS: Insulin LISPRO* 1 UNITS UNIT SUBCUT SCH ×4 (09:07→20:45)
[2016-06-12] MEDS: Atorvastatin* 20 MG TAB PO SCH (09:08)
[2016-06-12] MEDS: Potassium Chlor TAB* 20 MEQ TAB.ER PO SCH ×2 (09:08→20:44)
[2016-06-12] MEDS: Acetaminophen TAB* 325 MG PO PRN ×2 (09:08→19:11)
[2016-06-12] MEDS: Furosemide IV* 10 MG/ML 2 ML VIAL (20 MG) IV SLOW PU SCH (09:10)
[2016-06-12] MEDS: Nystatin TOP POWDER* 15 GM BTL TOPICAL SCH ×3 (09:10→21:06)
[2016-06-12] MEDS: PTO:Brimonidine P 0.1%(NF) 1 DROP BTL BOTH EYES SCH (09:10)
[2016-06-12] MEDS: Sodium Chloride 5% OPTH.SOL* 15 ML BTL BOTH EYES SCH (09:10)
[2016-06-12] MEDS: Lidocaine 2% JELLY* 30 GM TUBE TOPICAL PRN (09:16)
[2016-06-12] MEDS: Mometasone/Formoter 200/5 MDI INH SCH ×2 (09:27→19:24)
--- NOTE | 2016-06-12 11:13 | PN ---
Subjective Date of Service: 06/12/16 Interval History: Patient seen this morning. Reports some soreness in RUE and swelling. Reports mild cough, mostly non-productive. No fever or chills. Reports appetite has been poor. Back/abdominal pain improved. Family History: Unchanged from Admission Social History: Unchanged from Admission Past Medical History: Unchanged from Admission Objective Active Medications: Acetaminophen (Tylenol Tab*) 650 mg PO Q6H PRN Albuterol (Ventolin 2.5 Mg/3 Ml Neb.Ale*) 2.5 mg INH Q4H PRN Atenolol (Tenormin Tab*) 25 mg PO DAILY JN Atorvastatin Calcium (Lipitor*) 20 mg PO QAM JN Brimonidine Tartrate (Alphagan P 0.1% (Nf)) 1 drop BOTH EYES DAILY JN Dextrose (D50w Syringe 50 Ml*) 12.5 gm IV PUSH .FOR FS < 60 - SS PRN Furosemide (Lasix Iv*) 20 mg IV SLOW PU DAILY JN Heparin Sodium (Porcine) (Heparin Flush Picc/Ml/Cvc(*)) 1 ml FLUSH 0600,1800 JN Hydromorphone HCl (Dilaudid Iv*) 0.5 mg IV SLOW PU Q4H PRN Insulin Glargine (Lantus(*)) 10 units SUBCUT BEDTIME JN Insulin Human Lispro (Humalog*) 0 units SUBCUT ACHS JN Levothyroxine Sodium (Synthroid Tab*) 50 mcg PO DAILY@0600 JN Lidocaine HCl (Lidocaine 2% Jelly*) 1 applic TOPICAL TID PRN Mometasone Furoate/Formoterol Fumar (Dulera 200/5 Mdi*) 2 puff INH BID JN Nystatin (Nystatin Top Powder*) 1 applic TOPICAL TID JN Ondansetron HCl (Zofran Inj*) 4 mg IV Q6H PRN Potassium Chloride (Klor Con Er Tab*) 20 meq PO BID JN Sodium Chloride (Hypertonic) (Karolina 128 Opth 5% Opth.Soll*) 1 drop BOTH EYES DAILY [facility] Vital Signs 06/11/16 06/11/16 06/11/16 16:14 19:08 19:15 Temperature 97.9 F 97.9 F Pulse Rate 90 98 Respiratory 24 24 16 Rate Blood Pressure 172/63 139/50 (mmHg) O2 Sat by Pulse 99 97 Oximetry 06/11/16 06/11/16 06/11/16 20:00 20:08 20:39 Temperature Pulse Rate 97 Respiratory 20 18 Rate Blood Pressure (mmHg) O2 Sat by Pulse 98 Oximetry 06/11/16 06/11/16 06/11/16 22:11 23:04 23:11 Temperature 97.2 F Pulse Rate 93 Respiratory 22 16 17 Rate Blood Pressure 165/49 (mmHg) O2 Sat by Pulse 100 Oximetry 06/12/16 07:16 Temperature 97.9 F Pulse Rate 94 Respiratory 16 Rate Blood Pressure 143/54 (mmHg) O2 Sat by Pulse 97 Oximetry Oxygen Devices in Use Now: None Appearance: Middle-aged, F, sitting in chair in NAD Eyes: No Scleral Icterus Ears/Nose/Mouth/Throat: Mucous Membranes Moist Neck: NL Appearance and Movements; NL JVP Respiratory: Symmetrical Chest Expansion and Respiratory Effort, Clear to Auscultation Cardiovascular: NL Sounds; No Murmurs; No JVD Abdominal: NL Sounds; No Tenderness; No Distention Lymphatic: No Cervical Adenopathy Extremities: - - B/L LE pitting edema, RUE>LUE, some superifical warmth and ecchymosis Neurological: Alert and Oriented x 3 Lines/Tubes/Other Access: Clean, Dry and Intact Vega, Clean, Dry and Intact PICC Line Result Diagrams: 06/12/16 05:42 06/12/16 05:42 Additional Lab and Data: Assess/Plan/Problems-Billing Assessment: Septic shock 2/2 obstructive uropathy/pyelonephritis/hydronephrosis s/p stent placement by Dr. Osborn, ANDREW/ATN, paroxysmal AFib in a 70 yo F with hx of morbid obesity, recurrent nephrolithiasis, h/o recurrent PEs , blindness, HTN, non obstructive CAD on [facility] 2011 [place] (per pt report) hypothyroidism, seizure d/ o with hospital stay complicated by RP bleed while on heparin - Patient Problems (1) Leukocytosis Current Visit: Yes Comment: With low grade fever 3/6 Started vancomycin 3/6 with improvement in WBC today. Unclear association as RP bleed could have been to blame. Will transition to Doxycycline PO for possible cellulitis or pneumonia (Day 3) (2) Retroperitoneal bleed Current Visit: Yes Comment: s/p 1 U PRBC, H/H drifting down a bit, will order additional PRBC today CT indicates stable hematoma size appreciate assistance. Stent on left was placed without difficulty Pain improved - decreased dilaudid from 1mg to 0.5mg q4hrs No evidence based guidelines regarding reinstitution of AC in setting of RP bleed. In this case patient has a bleeding event with unidentified source (in retroperitoneum) and high risk indication for anticoagulation (recurrent PEs). Dr. Ferrari discussed risks and benefits with the patient and the decision was made to not restart AC at this time. Can re-evaluate in 2-4 weeks and can be discussed further with PCP. Additionally recommended that xarelto not be restarted in preference for coumadin (3) Superficial thrombophlebitis of right upper extremity Current Visit: Yes Comment: Will need to pull PICC after blood transfusion. Warm compresses to the arm (4) Systolic heart failure Current Visit: Yes Comment: Chronic compensated Now with significant LE edema in setting of blood and crystalloids Lasix 20mg IV started 06/10/16 continue for now (5) Septic shock Current Visit: Yes Comment: Present on admission now resolved 2/2 obstructive uropathy, E.coli and Enterococcus UTI/pyelo, bacteremia. Off pressors. Dr. Osborn took patient back to OR on 06/07 for R stent exchange and L stent placement. received Zosyn 10 days - last 06/09/16 (6) ANDREW (acute kidney injury) Current Visit: Yes Comment: ATN resolving Suspect pre renal component now in addition to ATN in setting of ACUTE BLOOD LOSS ANEMIA Trend Strict I/O Maintain vega (7) Paroxysmal a-fib Current Visit: Yes Comment: and hx of recurrent PE. - last 03/2015 Stopped heparin gtt 2/2 concern for acute blood loss anemia Holding Xarelto Timing for reinitiation will be difficult currently in NSR (8) HTN (hypertension) Current Visit: Yes Comment: Holding Lisinopril Restart atenolol 25 mg (1/2 home dose) in AM 3/8 Start lasix for edema and BP control with close eye on kidney fxn (9) Diabetes Current Visit: Yes Comment: Continue Lantus and HISS for now. Patient not on any medications at home, HbA1c 6.5% (10) CAD (coronary artery disease) Current Visit: Yes Comment: Discussed with pt and No h/o [place] Had LHC without stenting in 2012 at [place] Continue statin. Stopped ASA in setting of active bleeding (11) Seizure disorder Current Visit: Yes Comment: Reports being taken off Topamax due to contribution to renal stones (12) DVT prophylaxis Current Visit: Yes Comment: SCDs in setting of bleed
[2016-06-12] MEDS ORDERED: Atenolol TAB* 25 MG PO ONE (13:07)
[2016-06-12] MEDS: DOXYcycline CAP(*) 100 MG PO SCH (20:44)
[2016-06-12] MEDS: Insulin GLARGINE(*) 1 UNITS UNIT SUBCUT SCH (20:46)
[2016-06-12] MEDS: HYDROmorphone* 1 MG/ML 1 ML SYR IV SLOW PU PRN (21:02)
[2016-06-13] MEDS: HYDROmorphone* 1 MG/ML 1 ML SYR IV SLOW PU PRN ×2 (02:43→21:23)
[2016-06-13] MEDS: Levothyroxine TAB* 50 MCG TAB PO SCH (05:29)
[2016-06-13 05:49] LABS: Hematocrit 27 % (35-47); Hemoglobin 8.9 g/dl (12.0-16.0); Mean Corpuscular HGB Conc 33 g/dl (31-36); Mean Corpuscular Hemoglobin 29 pg (27-31); Mean Corpuscular Volume 87 fL (80-97); Mean Platelet Volume 9 um3 (7.4-10.4); Red Blood Count 3.08 10^6/ul (4.0-5.4); Red Cell Distribution Width 15 % (10.5-15); White Blood Count 10.3 10^3/ul (3.5-10.8)
[2016-06-13 05:59] LABS: Calcium 8.6 mg/dL (8.6-10.3); EGFR African American 54.6 (>60); EGFR Non-African American 42.5 (>60); Potassium 3.9 mmol/L (3.5-5.0)
[2016-06-13] MEDS: Mometasone/Formoter 200/5 MDI INH SCH ×2 (07:51→21:41)
[2016-06-13] MEDS: PTO:Brimonidine P 0.1%(NF) 1 DROP BTL BOTH EYES SCH (08:38)
[2016-06-13] MEDS: Insulin LISPRO* 1 UNITS UNIT SUBCUT SCH ×4 (08:38→21:22)
[2016-06-13] MEDS: Furosemide IV* 10 MG/ML 2 ML VIAL (20 MG) IV SLOW PU SCH (08:40)
[2016-06-13] MEDS: Atorvastatin* 20 MG TAB PO SCH (08:41)
[2016-06-13] MEDS: DOXYcycline CAP(*) 100 MG PO SCH ×2 (08:41→21:22)
[2016-06-13] MEDS: Atenolol TAB* 50 MG PO SCH (08:41)
[2016-06-13] MEDS: Acetaminophen TAB* 325 MG PO PRN ×2 (08:41→15:06)
[2016-06-13] MEDS: Potassium Chlor TAB* 20 MEQ TAB.ER PO SCH ×2 (08:41→21:22)
[2016-06-13] MEDS: Sodium Chloride 5% OPTH.SOL* 15 ML BTL BOTH EYES SCH (08:42)
[2016-06-13] MEDS: Nystatin TOP POWDER* 15 GM BTL TOPICAL SCH ×3 (08:42→21:33)
--- NOTE | 2016-06-13 10:08 | PN ---
Subjective Date of Service: 06/13/16 Interval History: Patient seen this morning. Feels well overall. Ambulated this morning which she felt good about. No further chills after transfusion. Had long discussion with patient about risks/benefits of anticoagulation as she had with Dr. Ferrari. At this point she would like to resume AC in a monitored setting. Family History: Unchanged from Admission Social History: Unchanged from Admission Past Medical History: Unchanged from Admission Objective Active Medications: Acetaminophen (Tylenol Tab*) 650 mg PO Q6H PRN Albuterol (Ventolin 2.5 Mg/3 Ml Neb.Ale*) 2.5 mg INH Q4H PRN Atenolol (Tenormin Tab*) 50 mg PO DAILY JN Atorvastatin Calcium (Lipitor*) 20 mg PO QAM JN Brimonidine Tartrate (Alphagan P 0.1% (Nf)) 1 drop BOTH EYES DAILY JN Dextrose (D50w Syringe 50 Ml*) 12.5 gm IV PUSH .FOR FS < 60 - SS PRN Doxycycline Hyclate (Vibramycin Cap(*)) 100 mg PO BID JN Furosemide (Lasix Iv*) 20 mg IV SLOW PU DAILY JN Heparin Sodium (Porcine) (Heparin Flush Picc/Ml/Cvc(*)) 1 ml FLUSH 0600,1800 JN Hydromorphone HCl (Dilaudid Iv*) 0.5 mg IV SLOW PU Q4H PRN Insulin Glargine (Lantus(*)) 10 units SUBCUT BEDTIME JN Insulin Human Lispro (Humalog*) 0 units SUBCUT ACHS JN Levothyroxine Sodium (Synthroid Tab*) 50 mcg PO DAILY@0600 JN Lidocaine HCl (Lidocaine 2% Jelly*) 1 applic TOPICAL TID PRN Mometasone Furoate/Formoterol Fumar (Dulera 200/5 Mdi*) 2 puff INH BID JN Nystatin (Nystatin Top Powder*) 1 applic TOPICAL TID JN Ondansetron HCl (Zofran Inj*) 4 mg IV Q6H PRN Potassium Chloride (Klor Con Er Tab*) 20 meq PO BID JN Sodium Chloride (Hypertonic) (Karolina 128 Opth 5% Opth.Soll*) 1 drop BOTH EYES DAILY [facility] Vital Signs 06/12/16 06/12/16 06/12/16 11:12 12:46 13:10 Temperature Pulse Rate 87 84 82 Respiratory 16 Rate Blood Pressure 163/48 155/57 (mmHg) O2 Sat by Pulse 99 100 100 Oximetry 06/12/16 06/12/16 06/12/16 14:39 15:39 15:41 Temperature 98.6 F 98.4 F Pulse Rate 83 81 Respiratory 22 16 16 Rate Blood Pressure 154/51 154/61 (mmHg) O2 Sat by Pulse 100 100 Oximetry 06/12/16 06/12/16 06/12/16 16:00 19:24 19:40 Temperature Pulse Rate 82 80 Respiratory 16 Rate Blood Pressure (mmHg) O2 Sat by Pulse 100 97 Oximetry 06/12/16 06/12/16 06/12/16 21:02 22:02 22:09 Temperature 98.2 F Pulse Rate 83 Respiratory 18 16 17 Rate Blood Pressure 137/58 (mmHg) O2 Sat by Pulse 97 Oximetry 06/12/16 06/13/16 06/13/16 23:36 02:43 03:43 Temperature 97.3 F Pulse Rate 81 Respiratory 16 18 15 Rate Blood Pressure 137/53 (mmHg) O2 Sat by Pulse 100 Oximetry 06/13/16 06/13/16 07:18 09:51 Temperature 98.3 F Pulse Rate 79 80 Respiratory 15 16 Rate Blood Pressure 129/34 (mmHg) O2 Sat by Pulse 98 95 Oximetry Oxygen Devices in Use Now: None Appearance: Middle-aged, F, sitting in chair in NAD Eyes: No Scleral Icterus Ears/Nose/Mouth/Throat: Mucous Membranes Moist Neck: NL Appearance and Movements; NL JVP Respiratory: Symmetrical Chest Expansion and Respiratory Effort, Clear to Auscultation Cardiovascular: NL Sounds; No Murmurs; No JVD, RRR Abdominal: NL Sounds; No Tenderness; No Distention Lymphatic: No Cervical Adenopathy Extremities: - - B/L LE edema Skin: No Rash or Ulcers Neurological: Alert and Oriented x 3 Lines/Tubes/Other Access: Clean, Dry and Intact Vega Result Diagrams: 06/13/16 05:13 06/13/16 05:13 Additional Lab and Data: Microbiology and Other Data: Microbiology 06/03/16 13:35 Aerobic Blood Culture - Preliminary Blood Venous No Growth Day 1 Anaerobic Blood Culture - Preliminary No Growth Day 1 06/03/16 13:30 Aerobic Blood Culture - Preliminary Blood Line No Growth Day 1 Anaerobic Blood Culture - Preliminary No Growth Day 1 06/02/16 11:25 Stool Occult Blood (TUAN) - Final Stool 05/31/16 15:42 Nasal Screen MRSA (PCR)(TUAN) - Final Nasal Mrsa Negative Assess/Plan/Problems-Billing Assessment: Septic shock 2/2 obstructive uropathy/pyelonephritis/hydronephrosis s/p stent placement by Dr. Osborn, ANDREW/ATN, paroxysmal AFib in a 70 yo F with hx of morbid obesity, recurrent nephrolithiasis, h/o recurrent PEs , blindness, HTN, non obstructive CAD on [facility] 2011 [place] (per pt report) hypothyroidism, seizure d/ o with hospital stay complicated by RP bleed while on heparin - Patient Problems (1) Leukocytosis Current Visit: Yes Comment: With low grade fever / Unclear association as RP bleed could have been to blame. Transitioned to Doxycycline PO for possible cellulitis or pneumonia (Day 4) (2) Retroperitoneal bleed Current Visit: Yes Comment: S/P additional unit of PRBC on 06/12. Discussed options regarding anticoagulation with patient again and she prefered to retry hepearin gtt at this time. (3) Superficial thrombophlebitis of right upper extremity Current Visit: Yes Comment: Improved, warm compressed to the arm (4) Systolic heart failure Current Visit: Yes Comment: Chronic compensated Now with significant LE edema in setting of blood and crystalloids Lasix 20mg IV started 06/10/16 continue for now (5) Septic shock Current Visit: Yes Comment: Present on admission now resolved 2/2 obstructive uropathy, E.coli and Enterococcus UTI/pyelo, bacteremia. Off pressors. Dr. Osborn took patient back to OR on 06/07 for R stent exchange and L stent placement. received Zosyn 10 days - last 06/09/16 Order to remove vega as per Dr. Osborn (6) ANDREW (acute kidney injury) Current Visit: Yes Comment: ATN resolving Suspect pre renal component now in addition to ATN in setting of ACUTE BLOOD LOSS ANEMIA Trend Strict I/O Maintain vega (7) Paroxysmal a-fib Current Visit: Yes Comment: Resume heaprin gtt today. No signs of RVR (8) HTN (hypertension) Current Visit: Yes Comment: Holding Lisinopril Restarted home Atenolol 50 mg daily on 06/12 Start lasix for edema and BP control with close eye on kidney fxn (9) Diabetes Current Visit: Yes Comment: Continue Lantus and HISS for now. Patient not on any medications at home, HbA1c 6.5% (10) CAD (coronary artery disease) Current Visit: Yes Comment: Discussed with pt and No h/o [place] Had LHC without stenting in 2011 at [place] Continue statin. Stopped ASA in setting of active bleeding (11) Seizure disorder Current Visit: Yes Comment: Reports being taken off Topamax due to contribution to renal stones (12) DVT prophylaxis Current Visit: Yes Comment: SCDs in setting of bleed Status and Disposition: Will hold on discharge for another 24 hours until trial on heparin gtt
[2016-06-13] MEDS ORDERED: Heparin DRIP 25,000 UNITS(*) 25,000 UNITS/500 ML BAG IV SCH (10:15)
[2016-06-13] MEDS ORDERED: Heparin VIAL(*) 5000 UNITS/ML VIAL (FIVE THOUSAND) IV SCH ×2 (11:00→14:00)
[2016-06-13 12:05] LABS: Hematocrit 27 % (35-47); Hemoglobin 8.9 g/dl (12.0-16.0); Mean Corpuscular HGB Conc 33 g/dl (31-36); Mean Corpuscular Hemoglobin 28 pg (27-31); Mean Corpuscular Volume 87 fL (80-97); Mean Platelet Volume 8 um3 (7.4-10.4); Red Blood Count 3.15 10^6/ul (4.0-5.4); Red Cell Distribution Width 15 % (10.5-15); White Blood Count 11.5 10^3/ul (3.5-10.8)
[2016-06-13] MEDS: Heparin DRIP 25,000 UNITS(*) 25,000 UNITS/500 ML BAG IV SCH (13:59)
[2016-06-13] MEDS: oxyCODONE TAB* 5 MG TAB PO PRN (18:35)
[2016-06-13] MEDS: Insulin GLARGINE(*) 1 UNITS UNIT SUBCUT SCH (21:22)
[2016-06-14] MEDS: HYDROmorphone* 1 MG/ML 1 ML SYR IV SLOW PU PRN ×2 (01:00→21:46)
[2016-06-14] MEDS: Levothyroxine TAB* 50 MCG TAB PO SCH (05:43)
[2016-06-14] MEDS: Heparin DRIP 25,000 UNITS(*) 25,000 UNITS/500 ML BAG IV SCH ×2 (06:46→21:07)
[2016-06-14] MEDS: Potassium Chlor TAB* 20 MEQ TAB.ER PO SCH ×2 (08:09→21:35)
[2016-06-14] MEDS: Atorvastatin* 20 MG TAB PO SCH (08:09)
[2016-06-14] MEDS: Atenolol TAB* 50 MG PO SCH (08:09)
[2016-06-14] MEDS: DOXYcycline CAP(*) 100 MG PO SCH ×2 (08:09→21:22)
[2016-06-14] MEDS: Insulin LISPRO* 1 UNITS UNIT SUBCUT SCH ×4 (08:09→21:29)
[2016-06-14] MEDS: Furosemide IV* 10 MG/ML 2 ML VIAL (20 MG) IV SLOW PU SCH (08:10)
[2016-06-14] MEDS: Nystatin TOP POWDER* 15 GM BTL TOPICAL SCH ×3 (08:10→21:31)
[2016-06-14] MEDS: PTO:Brimonidine P 0.1%(NF) 1 DROP BTL BOTH EYES SCH (08:10)
[2016-06-14] MEDS: Sodium Chloride 5% OPTH.SOL* 15 ML BTL BOTH EYES SCH (08:10)
[2016-06-14] MEDS: Mometasone/Formoter 200/5 MDI INH SCH ×2 (09:00→20:03)
--- NOTE | 2016-06-14 09:26 | PN ---
Subjective Date of Service: 06/14/16 Interval History: Patient seen this morning. She has no new complaints. Back pain which she feels more at night has been stable. No fever or chills. No bleeding noted. Family History: Unchanged from Admission Social History: Unchanged from Admission Past Medical History: Unchanged from Admission Objective Active Medications: Acetaminophen (Tylenol Tab*) 650 mg PO Q6H PRN Albuterol (Ventolin 2.5 Mg/3 Ml Neb.Ale*) 2.5 mg INH Q4H PRN Atenolol (Tenormin Tab*) 50 mg PO DAILY JN Atorvastatin Calcium (Lipitor*) 20 mg PO QAM JN Brimonidine Tartrate (Alphagan P 0.1% (Nf)) 1 drop BOTH EYES DAILY [facility] Dextrose (D50w Syringe 50 Ml*) 12.5 gm IV PUSH .FOR FS < 60 - SS PRN Doxycycline Hyclate (Vibramycin Cap(*)) 100 mg PO BID JN Furosemide (Lasix Iv*) 20 mg IV SLOW PU DAILY JN Heparin Sodium (Porcine) (Heparin Flush Picc/Ml/Cvc(*)) 1 ml FLUSH 0600,1800 JN Heparin Sodium (Porcine) (Heparin Vial(*)) 0 units IV .PER PROTOCOL JN Hydromorphone HCl (Dilaudid Iv*) 0.5 mg IV SLOW PU Q4H PRN Heparin Sodium/Dextrose (Heparin Drip 25,000 Units(*)) 25,000 units in 500 mls @ 0 mls/hr IV .NO BOLUSES PROTOCOL JN; Per Protocol Insulin Glargine (Lantus(*)) 10 units SUBCUT BEDTIME JN Insulin Human Lispro (Humalog*) 0 units SUBCUT ACHS JN Levothyroxine Sodium (Synthroid Tab*) 50 mcg PO DAILY@0600 JN Lidocaine HCl (Lidocaine 2% Jelly*) 1 applic TOPICAL TID PRN Mometasone Furoate/Formoterol Fumar (Dulera 200/5 Mdi*) 2 puff INH BID JN Nystatin (Nystatin Top Powder*) 1 applic TOPICAL TID JN Ondansetron HCl (Zofran Inj*) 4 mg IV Q6H PRN Oxycodone HCl (Roxycodone Tab*) 2.5 mg PO Q4H PRN Potassium Chloride (Klor Con Er Tab*) 20 meq PO BID JN Sodium Chloride (Hypertonic) (Karolina 128 Opth 5% Opth.Soll*) 1 drop BOTH EYES DAILY JN Vital Signs 06/13/16 06/13/16 06/13/16 09:51 13:24 18:35 Temperature 98.6 F Pulse Rate 80 87 Respiratory 16 24 18 Rate Blood Pressure 121/52 (mmHg) O2 Sat by Pulse 95 98 Oximetry 06/13/16 06/13/16 06/13/16 21:34 21:41 22:23 Temperature Pulse Rate 86 72 Respiratory 16 14 18 Rate Blood Pressure 146/57 (mmHg) O2 Sat by Pulse 97 98 Oximetry 06/13/16 06/14/16 06/14/16 23:12 01:00 02:00 Temperature 97.8 F Pulse Rate 85 Respiratory 16 18 16 Rate Blood Pressure 141/53 (mmHg) O2 Sat by Pulse 98 Oximetry 06/14/16 06/14/16 07:30 09:01 Temperature 98.9 F Pulse Rate 82 82 Respiratory 14 16 Rate Blood Pressure 135/59 (mmHg) O2 Sat by Pulse 97 97 Oximetry Oxygen Devices in Use Now: None Appearance: Middle-aged, F, sitting in chair in NAD Eyes: No Scleral Icterus Ears/Nose/Mouth/Throat: Mucous Membranes Moist Neck: NL Appearance and Movements; NL JVP Respiratory: Symmetrical Chest Expansion and Respiratory Effort, Clear to Auscultation Cardiovascular: NL Sounds; No Murmurs; No JVD, RRR Abdominal: NL Sounds; No Tenderness; No Distention Lymphatic: No Cervical Adenopathy Extremities: - - Improvement in RUE edema, B/L LE edema improving Skin: - - Chronic LE skin changes Neurological: Alert and Oriented x 3 Result Diagrams: 06/13/16 11:30 06/13/16 11:30 Additional Lab and Data: Microbiology and Other Data: Microbiology 06/03/16 13:35 Aerobic Blood Culture - Preliminary Blood Venous No Growth Day 1 Anaerobic Blood Culture - Preliminary No Growth Day 1 06/03/16 13:30 Aerobic Blood Culture - Preliminary Blood Line No Growth Day 1 Anaerobic Blood Culture - Preliminary No Growth Day 1 06/02/16 11:25 Stool Occult Blood (TUAN) - Final Stool 05/31/16 15:42 Nasal Screen MRSA (PCR)(TUAN) - Final Nasal Mrsa Negative Assess/Plan/Problems-Billing Assessment: Septic shock 2/2 obstructive uropathy/pyelonephritis/hydronephrosis s/p stent placement by Dr. Osborn, ANDREW/ATN, paroxysmal AFib in a 70 yo F with hx of morbid obesity, recurrent nephrolithiasis, h/o recurrent PEs , blindness, HTN, non obstructive CAD on [facility] 2011 [place] (per pt report) hypothyroidism, seizure d/ o with hospital stay complicated by RP bleed while on heparin - Patient Problems (1) Leukocytosis Current Visit: Yes Comment: With low grade fever 06/10 Unclear association as RP bleed could have been to blame. Transitioned to Doxycycline PO for possible cellulitis or pneumonia (Day 5) (2) Retroperitoneal bleed Current Visit: Yes Comment: S/P additional unit of PRBC on 06/12. Restarted heparin gtt, close eye on CBC and new pain, will get CT scan 24 hours after therapeutic heparin (3) Superficial thrombophlebitis of right upper extremity Current Visit: Yes Comment: Improved (4) Systolic heart failure Current Visit: Yes Comment: Chronic compensated Now with significant LE edema in setting of blood and crystalloids Lasix 20mg IV started 06/10/16 continue for now (5) Septic shock Current Visit: Yes Comment: Present on admission now resolved 2/2 obstructive uropathy, E.coli and Enterococcus UTI/pyelo, bacteremia. Off pressors. Dr. Osborn took patient back to OR on 06/07 for R stent exchange and L stent placement. received Zosyn 10 days - last 06/09/16 Vega removed, urinating well (6) ANDREW (acute kidney injury) Current Visit: Yes Comment: ATN resolving Suspect pre renal component now in addition to ATN in setting of ACUTE BLOOD LOSS ANEMIA Trend Strict I/O Maintain vega (7) Paroxysmal a-fib Current Visit: Yes Comment: Hx of recurrent PEs. Resumed heparin on 06/13, still not therapeutic. Continue for now. No signs of RVR. Continue beta- lizeth. (8) HTN (hypertension) Current Visit: Yes Comment: Holding Lisinopril Restarted home Atenolol 50 mg daily on 06/12 Started lasix for edema and BP control with close eye on kidney fxn (9) Diabetes Current Visit: Yes Comment: Continue Lantus and HISS for now. Patient not on any medications at home, HbA1c 6.5% (10) CAD (coronary artery disease) Current Visit: Yes Comment: Discussed with pt and No h/o [place] Had LHC without stenting in 2012 at [place] Continue statin. Stopped ASA in setting of active bleeding (11) Seizure disorder Current Visit: Yes Comment: Reports being taken off Topamax due to contribution to renal stones (12) DVT prophylaxis Current Visit: Yes Comment: SCDs in setting of bleed Status and Disposition: Awaiting therapeutic heparin levels for at least 24 hours
[2016-06-14] MEDS: oxyCODONE TAB* 5 MG TAB PO PRN ×2 (10:29→17:34)
[2016-06-14] MEDS: Acetaminophen TAB* 325 MG PO PRN ×2 (10:29→17:35)
[2016-06-14 12:36] LABS: Hematocrit 28 % (35-47); Hemoglobin 9.2 g/dl (12.0-16.0); Mean Corpuscular HGB Conc 33 g/dl (31-36); Mean Corpuscular Hemoglobin 29 pg (27-31); Mean Corpuscular Volume 88 fL (80-97); Mean Platelet Volume 8 um3 (7.4-10.4); Red Blood Count 3.22 10^6/ul (4.0-5.4); Red Cell Distribution Width 15 % (10.5-15); White Blood Count 11.3 10^3/ul (3.5-10.8)
[2016-06-14] MEDS: Insulin GLARGINE(*) 1 UNITS UNIT SUBCUT SCH (21:28)
[2016-06-14] MEDS: Lidocaine 2% JELLY* 30 GM TUBE TOPICAL PRN (21:36)
[2016-06-15] MEDS: oxyCODONE TAB* 5 MG TAB PO PRN (00:05)
[2016-06-15] MEDS: Acetaminophen TAB* 325 MG PO PRN ×2 (00:05→13:35)
[2016-06-15] MEDS: HYDROmorphone* 1 MG/ML 1 ML SYR IV SLOW PU PRN ×2 (04:15→09:53)
[2016-06-15] MEDS: Levothyroxine TAB* 50 MCG TAB PO SCH (06:29)
[2016-06-15 07:45] VITALS: BP 126/51
[2016-06-15] MEDS: Mometasone/Formoter 200/5 MDI INH SCH (08:30)
--- NOTE | 2016-06-15 08:59 | RAD ---
INDICATION: Reassess retroperitoneal hematoma. Sepsis. Urolithiasis. Bilateral ureteral stents. Post cholecystectomy. COMPARISON: June 09, 2016 CT. TECHNIQUE: Multidetector CT images were obtained from the lung bases to the ischial tuberosities. No IV or oral contrast administered limiting assessment of the viscera. REPORT: Small dependent LEFT pleural effusion and associated basilar atelectasis without gross change. Gross resolution of RIGHT pleural effusion with mild residual RIGHT basilar atelectasis. Post cholecystectomy. Negative for biliary dilatation. Mildly atrophic pancreas without suspicious finding. Unremarkable spleen. No CT abnormality of the unopacified upper GI or small bowel. Largely decompressed colon with moderate sigmoid diverticulosis without gross evidence for diverticulitis. Negative for ascites, free air, or significant hernias. Normal adrenal glands. Bilateral ureteral stents in place. Associated small volume of calyceal gas at the RIGHT kidney. 4 mm stone posterior midpole calyx RIGHT kidney. Similar stone at the midpole and similar stone at the lower pole of the LEFT kidney. Mild bilateral caliectasis without change. Decompressed urinary bladder. Post hysterectomy. Unremarkable adnexal regions. LEFT retroperitoneal hematoma extending from the inferior posterior margin superiorly through the inferior pelvis measures up to 9.4 cm AP by 12.3 cm transverse without significant interval change. No new retroperitoneal hematoma evident. Upper normal LEFT inguinal lymph nodes. Negative for lymphadenopathy. Atherosclerotic calcification of normal diameter abdominal aorta. Physiologic distention of the IVC. Polyarticular degenerative arthropathy. Negative for fracture or suspicious focal osseous lesions. IMPRESSION: No significant change in moderately large LEFT retroperitoneal hematoma compared with the June 2016 exam.
[2016-06-15] MEDS: Insulin LISPRO* 1 UNITS UNIT SUBCUT SCH ×2 (09:17→13:06)
[2016-06-15] MEDS: DOXYcycline CAP(*) 100 MG PO SCH (09:17)
[2016-06-15] MEDS: Atorvastatin* 20 MG TAB PO SCH (09:17)
[2016-06-15] MEDS: Potassium Chlor TAB* 20 MEQ TAB.ER PO SCH (09:17)
[2016-06-15] MEDS: Atenolol TAB* 50 MG PO SCH (09:17)
[2016-06-15] MEDS: Furosemide IV* 10 MG/ML 2 ML VIAL (20 MG) IV SLOW PU SCH (09:18)
[2016-06-15] MEDS: PTO:Brimonidine P 0.1%(NF) 1 DROP BTL BOTH EYES SCH (09:18)
[2016-06-15] MEDS: Sodium Chloride 5% OPTH.SOL* 15 ML BTL BOTH EYES SCH (09:21)
[2016-06-15] MEDS: Nystatin TOP POWDER* 15 GM BTL TOPICAL SCH (09:21)
[2016-06-15] MEDS ORDERED: oxyCODONE TAB* 5 MG TAB PO PRN (09:30)
[2016-06-15 10:42] LABS: Hematocrit 28 % (35-47); Hemoglobin 9.1 g/dl (12.0-16.0); Mean Corpuscular HGB Conc 32 g/dl (31-36); Mean Corpuscular Hemoglobin 28 pg (27-31); Mean Corpuscular Volume 88 fL (80-97); Mean Platelet Volume 9 um3 (7.4-10.4); Red Blood Count 3.19 10^6/ul (4.0-5.4); Red Cell Distribution Width 15 % (10.5-15); White Blood Count 12.1 10^3/ul (3.5-10.8)
[2016-06-15 10:56] LABS: BUN/Creatinine Ratio 13.8 (8-20); Calcium 8.5 mg/dL (8.6-10.3); EGFR African American 34.1 (>60); EGFR Non-African American 26.5 (>60); Potassium 4.2 mmol/L (3.5-5.0)
[2016-06-15] MEDS ORDERED: Enoxaparin(*) 150 MG/ML 1 ML SYRINGE SUBCUT SCH (11:00)
--- NOTE | 2016-06-15 11:08 | DCNOTE ---
Patient seen this morning. Still with back pain but no change from baseline. Otherwise feels well. On exam, RRR, s1 and s2 present, no m/g/r, abd soft, NTND, BS+, mild LE edema and significant pedal edema Hb and CT scan are stable. Will discharge with Lovenox and Warfarin with goal INR 2.0-2.5. Completed ABx therapy.
[2016-06-15] MEDS ORDERED: Warfarin TAB(*) 5 MG PO SCH (17:00)
--- NOTE | 2016-06-16 03:45 | DS ---
DISCHARGE SUMMARY: DATE OF ADMISSION: 05/31/16 DATE OF DISCHARGE: 06/15/16 PRIMARY CARE PHYSICIAN: Popeye Rojo MD PRINCIPAL DISCHARGE DIAGNOSES: 1. Septic shock secondary to obstructive uropathy. 2. Pyelonephritis, status post bilateral stent placements. 3. Acute tubular necrosis. 4. Paroxysmal atrial fibrillation. 5. Retroperitoneal hematoma. 6. Demand mediated NSTEMI. SECONDARY DIAGNOSES: 1. History of recurrent pulmonary embolism. 2. Hypertension. 3. Nonobstructive coronary artery disease. 4. Hypothyroidism. 5. Seizure disorder. 6. Hyperglycemia. STUDIES DONE DURING HOSPITALIZATION: CT abdomen and the pelvis without contrast , impression: Bilateral nephrolithiasis with several right ureteral stones and severe right-sided hydronephrosis. Chest x-ray, impression: Linear atelectasis of the right lung base. Transthoracic echocardiogram, conclusions: Studies technically limited due to patient habitus, mild concentric LVH is observed with EF of 50%. Normal left ventricular diastolic filling, right ventricular global systolic function is normal, mildly thickened aortic valve leaflets with normal aortic valve function , [id number] mitral regurgitation, and eekak-fk-umle tricuspid regurgitation. Compared to echo 09/26/12, LVH is unchanged, LVF at the time estimated 55% to 60%, AV function is stable, the degree of MR has increased. Consider followup imaging with echo contrast to better evaluate ventricular function and wall motion. Chest x-ray, impression: Expiratory exam, small bibasilar infiltrates. CT abdomen and pelvis without contrast from 06/03/15, indication: Resolution of right hydronephrosis with a right ureteral stent in place, bilateral nephrolithiasis is noted, perinephric fluid surrounding the right kidney persists. There is new bilateral pleural effusions and bibasilar atelectasis, worse on the right on the left. CT abdomen and pelvis on 06/08/16, impression: Large left retroperitoneal hematoma, new, status post bilateral double-J stent catheter placement; no evidence for hydronephrosis; multiple bilateral renal calculi; a small amount of free intraperitoneal fluid; and small bilateral pleural effusions, improved. CT abdomen and pelvis without contrast on 06/09/16: Small bilateral pleural effusions, slightly increased; large left-sided retroperitoneal hemorrhage, unchanged significantly in size; a small amount of free intraperitoneal fluid, unchanged; mild stranding around the pancreas, possibly secondary to the retroperitoneal hemorrhage are also noted with pancreatitis; and bilateral renal calculi, status post bilateral double-J stent catheter placement. Right upper extremity Doppler, impression: Superficial venous thrombosis throughout the cephalic vein. Chest x-ray, impression: Small left basilar infiltrate, left pleural effusion, slightly progressed. Findings consistent with COPD. CT abdomen and pelvis without contrast on 06/15/14, impression: No significant change and moderately large left retroperitoneal hematoma compared with the June 2006 exam. HISTORY OF PRESENT ILLNESS AND HOSPITAL SUMMARY: Please see the full history and physical by Jacy Roman NP, for full details. Briefly, Ms. Zhao is a 70 -year- old female with a past medical history as above who presented to the hospital with fever and back pain. The patient was noted to have a fever here in the hospital and subsequently became hypotensive. Imaging showed bilateral nephrolithiasis with right ureteral stones and right-sided hydronephrosis. The patient was started on broad-spectrum antibiotics and Urology was consulted. She was given significant IV fluids and taken to the OR, where she underwent stent placement with improvement in the right-sided hydronephrosis. She was transferred to the ICU, where she required vasopressive therapy. She was continued on antibiotics, cultures subsequently grew E. coli in the blood and the urine as well as enterococcus in the blood. She was given IV steroids and required bicarb due to significant acidosis. She was subsequently able to be weaned off of pressors and steroids. She has had significant renal dysfunction , which progressed to ATN with a creatinine peaking at 3.56 before trending back down to the 1.2 range with improvement in her urinary output. The patient was transferred to the floor with plans to complete full course of IV antibiotics here in the hospital. She subsequently underwent a repeat procedure by Dr. Osborn who exchanged her right-sided stent, which was placed amidst her infection and also placed a stent on the left side as she had evidence of stones. This was done on 06/07/16. The following day, the patient developed significant abdominal pain and a CT was done that showed new left- sided retroperitoneal hematoma. She was transferred to the ICU and received 2 units of blood. Her hemoglobin was mostly in the 8 to 9s. She was monitored in the ICU and appeared to be stable on repeat imaging and blood work. She was transferred back to the floor with relative stability in her hemoglobin. After further discussion with the patient, the decision was made to trial her on a heparin drip to ensure that she had no further bleeding as she is at high risk of complication of being off anticoagulation due to her recurrent pulmonary emboli. Heparin drip was started on 06/13/16 and on 06/15/16 , she had repeat imaging of the abdomen, which showed no change in the retroperitoneal hematoma. The patient will be transitioned to Lovenox and Coumadin with a goal Coumadin level between 2 and 2.5 in the setting of a recent hemorrhage. The patient had some swelling in the right upper extremity, which was the site of her PICC placement. As above imaging showed superficial thrombosis of the veins, but nothing in the deep veins. The PICC was removed and as noted above, she was started back on her home anticoagulation anyway. The patient will be discharged to [facility] for rehabilitation and will need post monitoring. She was fairly hyperglycemic throughout this hospital stay. Some of this may have been due to dextrose infusions including the heparin drip. Her HbA1C was 6.5%. She will be discharged for now on insulin; however, this will also be able to be weaned off fairly quickly. There was some concern about possible cellulitis around the site of her PICC and superficial thrombosis , so she was given a short course of initially started on vancomycin and transitioned to doxycycline, which she has completed here in the hospital and will be not discharged on. Due to lower extremity edema, she was started on Lasix. Her home lisinopril was stopped and her home atenolol was continued. We will need to maintain a close eye on the patient's renal function and blood counts. TIME SPENT: Total time spent on this discharge 45 minutes. This is a summary of the hospitalization, please see the full medical record for further details. CC: Popeye Rojo MD* [id number]/[facility] #: [id number] ANTHONY
[2016-06-16] MEDS ORDERED: Furosemide TAB* 40 MG PO SCH (09:00)
== END 2016-06-15 13:30 | DRG 871 ==
LOC: ED 08:35 → SDS 14:15 → ICU 14:56 → MEDTELE 06-04 09:42 → ICU 06-08 12:15 → MED 06-09 18:15
PROVIDERS: ADMIT Nurse Practitioner Acute Care; ATTEND Hospitalist
PROC: BT1DYZZ Fluoroscopy of Right Kidney, Ureter and Bladder using Other Contrast (ICD-10-PCS; 2016-05-31)
PROC: 02HV33Z Insertion of Infusion Device into Superior Vena Cava, Percutaneous Approach (ICD-10-PCS; 2016-05-31)
PROC: B548ZZA Ultrasonography of Superior Vena Cava, Guidance (ICD-10-PCS; 2016-05-31)
PROC: 3E043XZ Introduction of Vasopressor into Central Vein, Percutaneous Approach (ICD-10-PCS; 2016-05-31)
PROC: 0T768DZ Dilation of Right Ureter with Intraluminal Device, Via Natural or Artificial Opening Endoscopic (ICD-10-PCS; principal; 2016-05-31 17:00)
PROC: 02HV33Z Insertion of Infusion Device into Superior Vena Cava, Percutaneous Approach (ICD-10-PCS; 2016-06-01)
PROC: 0TP98DZ Removal of Intraluminal Device from Ureter, Via Natural or Artificial Opening Endoscopic (ICD-10-PCS; 2016-06-07)
PROC: 0T788DZ Dilation of Bilateral Ureters with Intraluminal Device, Via Natural or Artificial Opening Endoscopic (ICD-10-PCS; 2016-06-07)
PROC: BT14ZZZ Fluoroscopy of Kidneys, Ureters and Bladder (ICD-10-PCS; 2016-06-07)
PROC: 30233N1 Transfusion of Nonautologous Red Blood Cells into Peripheral Vein, Percutaneous Approach (ICD-10-PCS; 2016-06-12)
DX: A41.51 Sepsis due to Escherichia coli [E. coli] (principal); R65.21 Severe sepsis with septic shock; N17.0 Acute kidney failure with tubular necrosis; I21.4 Non-ST elevation (NSTEMI) myocardial infarction; J90 Pleural effusion, not elsewhere classified; K66.1 Hemoperitoneum; I48.0 Paroxysmal atrial fibrillation; E87.2 Acidosis; D62 Acute posthemorrhagic anemia; I50.22 Chronic systolic (congestive) heart failure; I11.0 Hypertensive heart disease with heart failure; G40.909 Epilepsy, unspecified, not intractable, without status epilepticus; Z68.42 Body mass index [BMI] 45.0-49.9, adult; N13.6 Pyonephrosis; I82.611 Acute embolism and thrombosis of superficial veins of right upper extremity; L03.113 Cellulitis of right upper limb; T82.868A Thrombosis due to vascular prosthetic devices, implants and grafts, initial encounter; I82.412 Acute embolism and thrombosis of left femoral vein; A41.81 Sepsis due to Enterococcus; I08.1 Rheumatic disorders of both mitral and tricuspid valves; E66.01 Morbid (severe) obesity due to excess calories; Z86.711 Personal history of pulmonary embolism; I25.10 Atherosclerotic heart disease of native coronary artery without angina pectoris; E03.9 Hypothyroidism, unspecified; E78.5 Hyperlipidemia, unspecified; Z88.2 Allergy status to sulfonamides; Z88.8 Allergy status to other drugs, medicaments and biological substances; Z88.1 Allergy status to other antibiotic agents; Z91.040 Latex allergy status; I73.9 Peripheral vascular disease, unspecified; M19.90 Unspecified osteoarthritis, unspecified site; Z96.653 Presence of artificial knee joint, bilateral; Z96.611 Presence of right artificial shoulder joint; H54.8 Legal blindness, as defined in USA; Z97.4 Presence of external hearing-aid; G43.909 Migraine, unspecified, not intractable, without status migrainosus; Z98.42 Cataract extraction status, left eye; Z98.41 Cataract extraction status, right eye; Z90.710 Acquired absence of both cervix and uterus; Z82.49 Family history of ischemic heart disease and other diseases of the circulatory system; F32.9 Major depressive disorder, single episode, unspecified; H91.90 Unspecified hearing loss, unspecified ear; Z83.3 Family history of diabetes mellitus; Z80.6 Family history of leukemia; Z66 Do not resuscitate; Z95.5 Presence of coronary angioplasty implant and graft; E11.65 Type 2 diabetes mellitus with hyperglycemia; H40.9 Unspecified glaucoma; Y83.8 Other surgical procedures as the cause of abnormal reaction of the patient, or of later complication, without mention of misadventure at the time of the procedure; R50.9 Fever, unspecified; D72.829 Elevated white blood cell count, unspecified; N28.89 Other specified disorders of kidney and ureter
CPT/HCPCS: 36415; 71010; 71020; 74176; 74420; 80048; 80053; 80076; 80202; 81003; 81015; 82272; 82330; 82803; 82947; 83036; 83605; 83735; 84100; 84132; 84484; 84520; 85014; 85018; 85025; 85027; 85610; 85730; 86078; 86850; 86900; 86901; 86922; 87040; 87077; 87086; 87186; 87205; 87641; 93005; 93306; 94640; 94760; A9270-GY; C1751; C1876; J0696; J1100; J1160; J1170; J1580; J1644; J1650; J1720; J1885; J1940; J2250; J2270; J2405; J2543; J2704; J3010; J3370; J3480; J7060; J7512; P9016; P9040; P9045; P9047

== ENCOUNTER 2016-07-31 07:48 | Observation (INO) | payer MEDICARE ==
--- NOTE | 2016-07-30 18:17 | HP ---
HISTORY AND PHYSICAL: DATE OF PLANNED ADMISSION AND SURGERY: 07/31/16 HISTORY OF PRESENT ILLNESS: Mrs. Zhao is a 70-year-old white female, who is admitted with bilateral renal calculi, bilateral ureteral stents for bilateral ureteroscopies, laser lithotripsies, and bilateral ureteral stent exchange. Mrs. Zhao is a known stone former and had required multiple bilateral procedures in the past. She was admitted 2 months ago to [facility] with urosepsis because of an obstructing calculus at the right ureteropelvic junction. She had urgent placement of a right ureteral stent. She then went into urosepsis, hypotension, and decreased renal function, required her to be on pressors and in the ICU for a long time. As she was doing better, she was taken to the operating room and had replacement of the right ureteral stent, which was felt to be possibly infected and placement of a left ureteral stent on 06/07/16. The left stent was placed to prevent obstruction of the left kidney from left renal calculi. Following those procedures and while on anticoagulation, she developed a spontaneous large left retroperitoneal hematoma that made her anemic and required transfusions. She ultimately recovered and was sent [facility]. She has been maintained on anticoagulation with warfarin. She was evaluated with a noncontrast CT of the abdomen and pelvis. This study showed bilateral renal calculi and left hydronephrosis in spite of the presence of the ureteral stent. Her urine culture grew Klebsiella, which is sensitive to Rocephin. The patient is now admitted for cystoscopy, bilateral ureteroscopies, laser lithotripsies, and replacement of bilateral ureteral stents. PAST MEDICAL HISTORY AND SYSTEM REVIEW: She has multiple medical problems including morbid obesity, hypertension, and diabetes mellitus. MEDICATIONS: She is maintained on the following medications: 1. Atenolol 50 mg daily. 2. Lisinopril 5 mg daily. 3. Synthroid replacement. 4. She is on warfarin. 5. She is also on potassium citrate 15 mEq 3 times per day. ALLERGIES: She reports being allergic to LATEX, SULFA, LEVAQUIN, and LEVOTHYROXINE. There is a full detail about her history and her hospital course of her recent admission. PHYSICAL EXAMINATION GENERAL: Morbidly obese white female, who otherwise looks fine. VITAL SIGNS: Blood pressure 120/80, pulse of 80. LUNGS: Normal. HEART: Normal. ABDOMEN: There is no CVA tenderness. There is still tenderness in the right and the left lower quadrant. EXTREMITIES: She has also grade 2 edema of both lower extremities, more on the left. IMPRESSION: 1. Bilateral renal calculi with persistent left hydronephrosis in spite of a presence of a left ureteral stent. 2. Diabetes mellitus. 3. Recent episode of life-threatening urosepsis from obstructing calculus of her left kidney, treated with antibiotics and stent placement. 4. Spontaneous retroperitoneal hematoma secondary to anticoagulation, corrected at this time with the patient on Coumadin at this time. PLAN: As discussed above. I discussed the above in detail with the patient and all her questions were answered. We will try to render the patient stone- free considering that her small stones caused obstruction and life-threatening urosepsis. [id number]/CPS #: [id number] MTDD
[~2016-07-31 07:48] MED LIST: Buffered Lidocaine 1% SYRIN* 3 ML/SYR SYRINGE INTRADERM ONE; Famotidine TAB* 20 MG PO ONE; Metoclopramide TAB* 10 MG PO ONE; Sodium Citrate/Citric Acid* 15 ML UDC PO ONE
[2016-07-31] MEDS ORDERED: Famotidine IV* 10 MG/ML 2 ML (20 mg) ONE (08:17)
[2016-07-31] MEDS ORDERED: Metoclopramide TAB* 10 MG ONE (08:17)
[2016-07-31] MEDS ORDERED: Sodium Citrate/Citric Acid* 15 ML UDC ONE (08:17)
[2016-07-31] MEDS ORDERED: cefTRIAXone(*) 2 GM ADDV.VIAL IVPB ONE (08:17)
[2016-07-31] MEDS ORDERED: Famotidine TAB* 20 MG ONE (08:48)
[2016-07-31] MEDS ORDERED: Iohexol 180 (CONTRAST) 10 ML SDV IV ONE (09:38)
[2016-07-31] MEDS ORDERED: fentaNYL* 50 MCG/ML 2 ML VIAL (100 MCG VIAL) ONE ×3 (10:08→11:45)
[2016-07-31] MEDS ORDERED: Propofol* 10 MG/ML 20 ML BTL IV PUSH ONE (10:59)
[2016-07-31] MEDS ORDERED: Lidocaine 2% PF * 5 ML VIAL ONE (10:59)
[2016-07-31] MEDS: fentaNYL* 50 MCG/ML 2 ML VIAL (100 MCG VIAL) IV PRN ×4 (11:21→12:13)
[2016-07-31] MEDS ORDERED: oxyCODONE/Acetamin 5/325 MG* TAB ONE (11:45)
--- NOTE | 2016-07-31 11:48 | RAD ---
INDICATION: Bilateral stent exchange COMPARISONS: June 07, 2016 TECHNIQUE: Fluoroscopy was provided for a retrograde pyelogram and stent placement. Total fluoroscopy time is: 23 seconds FINDINGS: Contrast is noted within the renal collecting systems bilaterally. Bilateral ureteral stents are noted IMPRESSION: FLUOROSCOPY WAS PROVIDED FOR A RETROGRADE PYELOGRAM AND STENT PLACEMENT CPT II Codes: 6045F
[2016-07-31 12:43] LABS: Hematocrit 24 % (35-47); Hemoglobin 7.8 g/dl (12.0-16.0); Mean Corpuscular HGB Conc 33 g/dl (31-36); Mean Corpuscular Hemoglobin 28 pg (27-31); Mean Corpuscular Volume 85 fL (80-97); Mean Platelet Volume 8 um3 (7.4-10.4); Red Blood Count 2.79 10^6/ul (4.0-5.4); Red Cell Distribution Width 17 % (10.5-15); White Blood Count 6.9 10^3/ul (3.5-10.8)
[2016-07-31 13:03] LABS: Calcium 8.8 mg/dL (8.6-10.3); EGFR African American 33.5 (>60); EGFR Non-African American 26.1 (>60); Potassium 4.7 mmol/L (3.5-5.0)
[2016-07-31] MEDS ORDERED: oxyCODONE/Acetamin 5/325 MG* TAB PO PRN (14:14)
[2016-07-31] MEDS ORDERED: NS 0.9% 1000 ML* 1,000 ML IV SCH ×2 (14:15→14:45)
[2016-07-31] MEDS ORDERED: Sodium Chloride 2% OPTH.SOL* 15 ML BTL BOTH EYES PRN (14:23)
[2016-07-31] MEDS ORDERED: Nystatin TOP POWDER* 15 GM BTL TOPICAL PRN (14:24)
[2016-07-31] MEDS ORDERED: oxyCODONE TAB* 5 MG TAB PO PRN (14:25)
[2016-07-31] MEDS ORDERED: Acetaminophen TAB* 325 MG PO PRN (14:32)
[2016-07-31] MEDS ORDERED: Ondansetron INJ* 2 MG/ML VIAL IV PRN (14:35)
[2016-07-31] MEDS: Heparin VIAL(*) 5000 UNITS/ML VIAL (FIVE THOUSAND) SUBCUT SCH ×2 (14:54→21:17)
--- NOTE | 2016-07-31 15:00 | HP ---
HISTORY AND PHYSICAL: DATE OF ADMISSION: 07/31/16 PRIMARY CARE PROVIDER: Dr. Rojo. UROLOGIST: Dr. Osborn. CHIEF COMPLAINT: Infected urine. HISTORY OF PRESENT ILLNESS: Ms. Zhao is a 70-year-old female, who had tumultuous end of May to beginning of June, where she was admitted for septic shock secondary to pyelonephritis from an obstructing stone. During that hospitalization, the patient also developed acute renal failure secondary to ATN. She had episodes of paroxysmal atrial fibrillation, development of retroperitoneal hematoma, and identification of hyperglycemia. Initially after presentation for that admission, the patient had stents placed in both ureters. Later on in that admission, she had replacement of the stents. Following the replacement of the stents, the patient developed a spontaneous retroperitoneal hematoma. The patient had been doing well. However, on 07/24/16, the patient was identified to have Klebsiella oxytoca urinary tract infection. The plan is for the patient to be treated definitively for her kidney stones and have stents exchanged. This was planned for 07/31/16. The patient ultimately came in for surgery. Dr. Osborn identified that the left ureteral stent was almost obstructed. When he entered the kidney, purulent urine was identified. At that time, the decision was made to abort the proposed procedure of treating the kidney stone and a left ureteral stent exchange was performed. The right ureteral stent was also exchanged as it had been in since the end of May to the beginning of June. The patient has been doing well postoperatively; however, Dr. Osborn is concerned that she may become septic and therefore is requested admission to the hospital. PAST MEDICAL HISTORY: 1. Recent septic shock secondary to pyelonephritis and obstructing stone, May 2016. 2. Acute renal failure secondary to ATN. 3. Paroxysmal atrial fibrillation. 4. Retroperitoneal hematoma. 5. Type 2 non-STEMI at the time of her hospitalization in May 2016. 6. History of recurrent PEs. 7. Hypertension. 8. Coronary artery disease. 9. Hypothyroidism. 10. Seizure disorder. 11. Hyperglycemia. 12. Hyperlipidemia. 13. Depression. MEDICATIONS: 1. Oxycodone 5 mg p.o. q.4 hours p.r.n. pain. 2. Coumadin 7.5 mg p.o. daily. 3. Sodium chloride ophthalmic solution 1 drop to both eyes q.4 hours p.r.n. dryness. 4. Potassium citrate 15 mEq p.o. t.i.d. 5. Nystatin powder apply topically t.i.d. p.r.n. rash. 6. Multivitamin 1 tab p.o. daily. 7. Lisinopril 50 mg p.o. daily (this needs to be confirmed with the patient as the dose does not appear to be correct). 8. Synthroid 25 mcg p.o. daily. 9. Bumex 1 mg p.o. daily. 10. Alphagan P 1 drop to both eyes daily. 11. Lipitor 20 mg p.o. daily. 12. Atenolol 50 mg p.o. daily. 13. Aspirin 81 mg p.o. daily. 14. Tylenol 650 mg p.o. q.6 hours p.r.n. pain. ALLERGIES: LEVAQUIN, SULFA, LATEX, and LEVOTHYROXINE. FAMILY HISTORY: The patient's father related to diabetes and leukemia. Mom is living. SOCIAL HISTORY: The patient does not drink alcohol. She does not smoke. She lives with her , Bernabe, who is her healthcare proxy. REVIEW OF SYSTEMS: This is somewhat difficult to obtain due to the patient being immediately postoperative, though she does deny any fevers in the last several days. She states her appetite had been fine. She denies any chest pain at this point. She denies any shortness of breath at this point. She does admit to left lower quadrant abdominal pain. She does state that she had back pain on both left and right the night prior to the operation. Denies any blood in her stool. She states that she has been having changes in her bowel movements where she will have soft stool followed by constipation followed by periods of the time where she is really unable to go at all. She denied any burning or pain with urination though had been under treatment for urinary tract infection prior to coming in for her procedure. LABORATORY DATA: Pending. ASSESSMENT AND PLAN: Mr. Zhao is a 70-year-old female with a complicated past medical history including recurrent kidney stones, recent admission in the end of May 2016 for septic shock secondary to pyelonephritis and obstructing ureteral stone, who is brought in electively for treatment of her kidney stone, however, was identified to have purulent urine within the left kidney and is being admitting now for treatment of pyelonephritis. 1. Pyelonephritis. At this point, the patient does not appear to be acutely ill. Her blood pressure is quite good. Her heart rate is normal. I will go ahead and obtain basic labs including a CBC, BMP, and INR. The patient will be started on ceftriaxone. She received 2 g today. She will continue on 1 g IV daily. A culture from the purulent urine obtained in the operating room was sent. Culture from 07/24/16 is growing Klebsiella oxytoca that is sensitive to ceftriaxone and this is likely the same pathogen that led to the purulent urine seen today. 2. History of recurrent pulmonary embolism. The patient has been on Coumadin. I do not see a preoperative INR. The patient will have an INR obtained now. She will be maintained on her usual dose of Coumadin as long as her INR is in the therapeutic range. 3. Hypertension. The patient's blood pressure is in good range. It is witnessed by the vital signs on the monitor in the PACU. The patient will be continued on her usual dose of atenolol and I will try to confirm the dose of lisinopril that she is taking at home. 4. Hypothyroidism. The patient will be maintained on her usual dose of Synthroid. 5. Coronary artery disease. The patient has no complaints of chest pain. No further evaluation will be performed at this time. 6. DVT prophylaxis. According to the Adult Thrombosis Prophylaxis Risk Factor Assessment Guide, the patient has a total risk factor score of 4 making her high risk. She will be placed on heparin 5000 units subcutaneous q.8 hours. 7. Code status is full. Again, the patient indicates that her , Bernabe, is her healthcare proxy. TIME SPENT: Sixty-five minutes was spent admitting this patient. CC: Dr. Osborn; Dr. Rojo* [id number]/[facility] #: [id number] [facility] CENTERAmber
[2016-07-31] MEDS ORDERED: Warfarin TAB(*) 7.5 MG PO SCH (17:00)
[2016-07-31] MEDS: oxyCODONE/Acetamin 5/325 MG* TAB PO PRN ×2 (17:02→21:16)
[2016-07-31] MEDS: Potassium Citrate (NF) 10 MEQ TAB PO SCH (21:20)
--- NOTE | 2016-08-01 03:05 | OP ---
DATE OF OPERATION: 07/31/16 - ROOM #347 DATE OF : 47 SURGEON: Agustin Osborn MD ANESTHESIOLOGIST: Dr. Colin Radford. ANESTHESIA: General. PRE-OP DIAGNOSES: 1. Bilateral renal calculi. 2. Status post placement of bilateral ureteral stents. POST-OP DIAGNOSES: 1. Bilateral renal calculi. 2. Status post placement of bilateral ureteral stents. 3. Left hydronephrosis and grossly infected urine of left kidney. OPERATIVE PROCEDURE: Cystoscopy, left ureteroscopy, bilateral retrograde pyelographies, bilateral ureteral stent exchange (8-Moroccan on the left, 7- Moroccan on the right). INDICATION FOR PROCEDURE: Mrs. Zhao is a 70-year-old white female, who is a stone former and who presented two months ago with sepsis caused by an obstructing calculus in her right kidney. She had urgent placement of a right ureteral stent. She developed urosepsis and had a postoperative stormy course. Because of a presence of a calculus on the left side and to avoid a similar episode on the left, she was taken to the operating room on 06/07/16 and had a right ureteral stent exchange and the placement of a left ureteral stent. She then developed a spontaneous left retroperitoneal hematoma while on anticoagulation that required transfusions. She recovered and was discharged on Warfarin. A recent non-contrast CT of the abdomen and pelvis showed a 1-cm calculus in the area of the left renal pelvis adjacent to the stent, moderate left hydronephrosis and 2 calculi measuring about 6 mm each in the mid pole calyx and the lower pole calyx of the right kidney without hydronephrosis. Preoperative urine culture grew Klebsiella. The only antibiotic sensitive to, that the patient was not allergic to, was Macrodantin and she was started on Macrobid pre-admission. She was given 2 g of Rocephin in the PACU preoperatively. The patient is taken to the operating room with the plan of performing bilateral ureteroscopies, laser lithotripsies, and stent exchange. PATHOLOGY AT CYSTOSCOPY: The bladder mucosa looked somewhat hyperemic as expected with stents. The distal limbs of the stent were seen coming from the left and the right ureteral orifices. Upon left ureteroscopy, the ureteral mucosa looked normal. In the proximal ureter, there were mucopurulent material. Aspiration of that material showed grossly infected urine. Because of that finding, and to avoid causing urosepsis, the ureteroscopy was stopped. Following placement of an open-ended catheter in the left kidney, a total of 20 cc of grossly purulent urine was drained and was sent for culture and sensitivity. Right retrograde pyelography showed no right hydronephrosis and the urine from the right kidney was clear. DESCRIPTION OF PROCEDURE: After successful general anesthesia, the patient was placed in the lithotomy position and was prepped and draped for a cystoscopy. Cystoscopy was performed. The left ureteral stent was removed over a guidewire. A size 6.5 semi-rigid ureteroscope was then introduced into the left ureter and introduced without difficulty all the way up into the proximal ureter. At that point, the mucopurulent material was seen. Because of the grossly infected urine, it was decided to discontinue the procedure to avoid throwing her into sepsis. An open-ended catheter was fed on top of the guidewire and positioned in the area of the renal pelvis and the left recollecting system was drained and decompressed. Urine was sent for culture and sensitivity. After decompressing the system, 2 to 3 cc of non- diluted contrast were injected, delineating the collecting system and showing resolution of the hydronephrosis. A size 8-Moroccan stent was then placed with the proximal end coiling in renal pelvis and the distal end coiling inside the bladder. Attention was directed to the right side. The right stent was removed over a guidewire. Open-ended catheter was positioned in the area of the renal pelvis and urine was aspirated and did not look infected. Because of the infected urine on the left side, it was decided not to perform ureteroscopy on the right. A size 7- Moroccan stent was then placed with the proximal end coiling in renal pelvis and the distal end coiling inside the bladder. The scope was removed and a size 16- Moroccan Dixon catheter was passed inside the bladder and the balloon inflated with 10 cc of water. The patient tolerated the procedures well and left the operating room in good condition. The plan is to observe her for the next 24 hours for possible sepsis and she will be on IV antibiotics in the interim. [id number]/[facility] #: [id number] [facility]ITAL[facility]mber
[2016-08-01] MEDS: oxyCODONE/Acetamin 5/325 MG* TAB PO PRN ×2 (04:46→10:38)
[2016-08-01 05:41] LABS: Hematocrit 29 % (35-47); Hemoglobin 9.2 g/dl (12.0-16.0); Mean Corpuscular HGB Conc 32 g/dl (31-36); Mean Corpuscular Hemoglobin 28 pg (27-31); Mean Corpuscular Volume 87 fL (80-97); Mean Platelet Volume 8 um3 (7.4-10.4); Red Blood Count 3.34 10^6/ul (4.0-5.4); Red Cell Distribution Width 18 % (10.5-15); White Blood Count 9.2 10^3/ul (3.5-10.8)
[2016-08-01] MEDS ORDERED: LEVOTHYROXINE PO SCH (06:00)
[2016-08-01] MEDS: Heparin VIAL(*) 5000 UNITS/ML VIAL (FIVE THOUSAND) SUBCUT SCH (06:29)
[2016-08-01 07:00] LABS: BUN/Creatinine Ratio 18.7 (8-20); Calcium 8.9 mg/dL (8.6-10.3); EGFR African American 30.2 (>60); EGFR Non-African American 23.5 (>60); Potassium 4.5 mmol/L (3.5-5.0)
[2016-08-01] MEDS: Potassium Citrate (NF) 10 MEQ TAB PO SCH (08:26)
[2016-08-01] MEDS: Brimonidine P 0.1%(NF) 1 DROP BTL BOTH EYES SCH ×2 (08:28→10:39)
[2016-08-01] MEDS ORDERED: Atenolol TAB* 50 MG PO SCH (09:00)
[2016-08-01] MEDS ORDERED: Bumetanide TAB* 1 MG PO SCH (09:00)
[2016-08-01] MEDS ORDERED: Aspirin EC Low Dose* 81 MG TAB.EC PO SCH (09:00)
[2016-08-01] MEDS ORDERED: Multivitamins/Minerals TAB PO SCH (09:00)
[2016-08-01] MEDS ORDERED: Atorvastatin* 20 MG TAB PO SCH (09:00)
[2016-08-01 12:14] VITALS: BP 143/58
--- NOTE | 2016-08-02 04:02 | DS ---
DISCHARGE SUMMARY: DATE OF ADMISSION: 07/30/16 DATE OF DISCHARGE: 08/01/16 ADMISSION DIAGNOSES: 1. Pyelonephritis. 2. Left hydronephrosis and infection of the left kidney. SECONDARY DIAGNOSES: 1. Pulmonary embolism. 2. Hypertension. 3. Hypothyroidism. 4. Atrial fibrillation. DISCHARGE DIAGNOSES: 1. Pyelonephritis. 2. Left hydronephrosis and infection of the left kidney. 3. Pulmonary embolism. 4. Hypertension. 5. Hypothyroidism. 6. Atrial fibrillation. HOSPITAL COURSE: The patient is a 70-year-old woman who presented to [facility] for bilateral ureteral stents because of bilateral renal calculi and pyelonephritis. This was performed on 07/31/[address] Osborn. The patient also had left hydronephrosis and infection of the left kidney. The patient did quite well during her hospital stay. She was afebrile feeling better still with some pain, but not like she had when she first came in. She was placed initially on Rocephin because her urine grew Klebsiella, which was sensitive to Rocephin. The patient was feeling well enough to be discharged home on 08/01/16. She will be discharged on 10 days of Vantin 200 mg daily adjusted for her creatinine clearance. The patient has a followup with Dr. Osborn next week. PHYSICAL EXAMINATION ON THE DATE OF DISCHARGE: General: A well developed, well nourished woman, sitting up in bed, in no acute distress. Vital signs: Temperature 97.7 degrees, heart rate 80 beats per minutes, respiratory rate 16 breaths per minute, pulse ox 95% on room air, and blood pressure 142/58. HEENT : Normocephalic, atraumatic. Pupils equal, round and reactive to light. Moist mucus membranes. Neck: Supple. No JVD, bruits, palpable thyroid, or lymphadenopathy. Chest: Clear to auscultation and percussion bilaterally. Cardiovascular: S1, S2 appreciated. Abdomen: Obese, positive bowel sounds in all 4 quadrants, soft, and nontender except for tenderness in her left flank area. Extremities: No cyanosis or clubbing; +2 peripheral pulses bilaterally. Neuro: Alert and oriented x3. Moves all extremities. Skin: No rashes. STUDIES DONE WHILE IN THE HOSPITAL: Retrograde pyelogram, 07/31/16. Impression : Fluoroscopy was provided for retrograde pyelogram and stent placement. DISCHARGE MEDICATIONS: 1. Oxycodone 5 mg every 4 hours as needed for pain. 2. Coumadin 7.5 mg daily. 3. Sodium chloride ophthalmologic solution 1 drop both eyes every 4 hours. 4. Potassium citrate 15 mEq 3 times a day. 5. Nystatin powder 3 times a day as needed. 6. Multivitamin 1 tablet daily. 7. Lisinopril 50 mg in the morning. 8. Levothyroxine 25 mcg in the morning. 9. Bumex 1 mg in the morning. 10. Alphagan eye drops 1 drop both eyes daily. 11. Lipitor 20 mg in the morning. 12. Atenolol 50 mg in the morning. 13. Aspirin 81 mg in the morning. 14. Tylenol 650 mg every 6 hours as needed. 15. Percocet 1 tablet every 4 hours as needed. 16. Vantin 200 mg daily for 10 days. DISCHARGE PLAN: The patient will be discharge home. She will follow up with Dr. Osborn next week. The patient will return to the ED if symptoms recur or develops any worrisome symptoms. TIME SPENT: Over 45 minutes was spent on this discharge; more than 20 minutes of which was spent in direct [id number] contact with the patient, evaluation, physical exam, counseling, and coordination of care. CC: Agustin Osborn MD; Popeye Rojo MD * [id number]/[facility] #: [id number] [facility]
== END 2016-08-01 12:20 | disposition home or self-care (01) ==
LOC: OR 07:48 → SSU 13:23 → UNDOADMOB 13:23 → SSU 14:03 → UNDODISOB 08-01 12:36
PROVIDERS: ADMIT Hospitalist; ATTEND Internal Medicine
PROC: BT14ZZZ Fluoroscopy of Kidneys, Ureters and Bladder (ICD-10-PCS; 2016-07-31)
PROC: 0T788DZ Dilation of Bilateral Ureters with Intraluminal Device, Via Natural or Artificial Opening Endoscopic (ICD-10-PCS; principal; 2016-07-31 09:30)
DX: N13.6 Pyonephrosis (principal); N13.30 Unspecified hydronephrosis; N15.9 Renal tubulo-interstitial disease, unspecified; I26.99 Other pulmonary embolism without acute cor pulmonale; I10 Essential (primary) hypertension; E03.9 Hypothyroidism, unspecified; I48.91 Unspecified atrial fibrillation; G40.909 Epilepsy, unspecified, not intractable, without status epilepticus; I25.2 Old myocardial infarction; Z79.82 Long term (current) use of aspirin; Z79.899 Other long term (current) drug therapy; Z79.01 Long term (current) use of anticoagulants; Z88.1 Allergy status to other antibiotic agents; Z88.2 Allergy status to sulfonamides; Z88.8 Allergy status to other drugs, medicaments and biological substances
CPT/HCPCS: 36415; 74420; 80048; 85025; 85610; 85730; 87073; 87077; 87086; 87106; 87186; 87205; 96372; 96374; A9270-GY; C1876; G0378; J0696; J1644; J2704; J3010

== ENCOUNTER → 2016-08-09 07:16 | Day surgery (SDC) | payer MEDICARE ==
[~2016-08-09 07:16] MED LIST changes: -Famotidine TAB* 20 MG PO ONE; +Iohexol 180 (CONTRAST) 10 ML SDV IV ONE; +Lidocaine 2% PF * 5 ML VIAL ONE; -Metoclopramide TAB* 10 MG PO ONE; +Ondansetron INJ* 2 MG/ML VIAL IV PRN; +Propofol* 10 MG/ML 20 ML BTL IV PUSH ONE; +Sodium Citrate/Citric Acid* 15 ML UDC ONE; -Sodium Citrate/Citric Acid* 15 ML UDC PO ONE; +Succinylcholine* 20 MG/ML 10 ML VIAL ONE; +cefTRIAXone(*) 2 GM ADDV.VIAL IVPB ONE; +fentaNYL* 50 MCG/ML 2 ML VIAL (100 MCG VIAL) IV PRN; +fentaNYL* 50 MCG/ML 2 ML VIAL (100 MCG VIAL) ONE; +oxyCODONE/Acetamin 5/325 MG* TAB ONE
--- NOTE | 2016-08-09 12:40 | RAD ---
INDICATION: Bilateral stent exchange. COMPARISON: Correlation is made with a prior retrograde pyelogram from July 31, 2016. TECHNIQUE: 29 seconds of intermittent fluoroscopic guidance were provided and 8 spot films of the abdomen were obtained. FINDINGS: The films demonstrate partial opacification of both proximal collecting systems and placement of bilateral double-J stent catheters. IMPRESSION: INTRAOPERATIVE CONTROL FILMS. CPT II Codes: 6045F
[2016-08-09 14:07] VITALS: BP 109/95
--- NOTE | 2016-08-09 14:42 | OP ---
OPERATIVE REPORT: DATE OF OPERATION: 08/09/16 DATE OF : 47 SURGEON: Agustin Osborn MD ANESTHESIOLOGIST: Arnoldo Melendrez DO ANESTHESIA: General. PRE-OP DIAGNOSES: 1. Bilateral renal calculi. 2. Status post placement of bilateral ureteral stents. POST-OP DIAGNOSES: 1. Bilateral renal calculi. 2. Status post placement of bilateral ureteral stents. OPERATIVE PROCEDURE: 1. Cystoscopy. 2. Left semi-rigid ureteroscopy and pyeloscopy, and laser lithotripsy of left renal calculus. 3. Left retrograde pyelography and left ureteral stent exchange (8-Nigerian). 4. Right flexible ureteroscopy and pyeloscopy. 5. Basketing of 2 right renal calculi (6 mm each). 6. Right retrograde pyelography and right ureteral stent exchange (7-Nigerian). INDICATION FOR PROCEDURE: Mrs. Zhao is a 70-year-old white female who has bilateral renal calculi and had placement of bilateral ureteral stents. She has recently recovered from urosepsis and had been managed with antibiotics and bilateral stents. Recent CT scan showed a 1-cm calculus in the area of the left renal pelvis and 2 right renal calculi measuring 6 mm each located in the mid pole and in the lower pole calyces. The patient is admitted for treatment of the bilateral renal calculi. Pathology at cystoscopy: The bladder mucosa showed some hyperemia consistent with the presence of stents. Upon left ureteroscopy, there was still a significant degree of edema and hyperemia and mucopurulent material in the proximal ureter and the renal pelvis. That made the visualization a bit more difficult. A friable 1-cm calculus that had a yellowish color was noted in the left renal pelvis. The stone broke easily with laser treatment. Upon right ureteroscopy and pyeloscopy, both calculi were visualized, one in a mid pole calyx and the other one in the lower pole calyx as visualized on the CT. Both calculi had the same appearance of a calcium oxalate stone. They measured about 6 mm each. Retrograde pyelography showed no hydronephrosis. DESCRIPTION OF PROCEDURE: After successful general anesthesia, the patient was placed in the lithotomy position and was prepped and draped in the usual manner. Cystoscopy was performed. The left ureteral stent was removed over a guidewire. A size 6.5 semi-rigid ureteroscope was then introduced into the bladder. A flexible- tip basket was then passed through the port of the ureteroscope and its flexible tip was used as a guide, introducing it inside the left ureter and allowing the introduction of the ureteroscope into the ureter without risk of damage. The mucoid material in the ureter made the visualization somewhat suboptimal. Some of that material was extracted using the basket. Ultimately, the ureteroscope was safely introduced inside the renal pelvis. The stone was visualized. Using the holmium laser fiber, the stone was broken into multiple pieces. The fragments were too small to extract. Retrograde pyelography was then performed showing no extravasation. A size 8- Nigerian stent was then placed with the proximal end coiling in the renal pelvis and the distal end coiling inside the bladder. Attention was then directed to the right kidney. The right ureteral stent was removed over a guidewire. A 10-12 Nigerian access sheath was then fed on top of the guidewire and the proximal end was positioned in the proximal ureter. The flexible ureteroscope was then introduced through the access sheath and was passed without difficulty inside the renal pelvis. The calyces were inspected and the mid pole calculus was visualized in a mid pole calyx. Using the tipless basket, the stone was engaged and was successfully extracted intact; however, having to remove the access sheath while extracting the stone. The access sheath was then replaced over a guidewire. The flexible ureteroscope was reintroduced and the lower pole calyces were inspected one at a time until the stone was identified. Using the same basket, that stone was successfully engaged and extracted without any holdup in the ureter. Right retrograde pyelography was then performed showing no extravasation. A size 7-Nigerian stent was then placed with the proximal end coiling in the renal pelvis and the distal end coiling inside the bladder. A 16-Nigerian Dixon catheter was then placed. The patient tolerated the procedures well and left the operating room in good condition. The plan is to leave the stents in place for about 2 weeks. Considering the stormy course she had when she passed even small ureteral calculi, the plan is to obtain a non-contrast CT of the abdomen and pelvis in about 2 weeks. We will decide on when the stents can be safely removed. [id number]/[facility] #: [id number] [facility]
== END | disposition home or self-care (01) ==
LOC: OR 07:16
PROVIDERS: ATTEND Urology
DX: N20.0 Calculus of kidney (principal); I10 Essential (primary) hypertension; E11.9 Type 2 diabetes mellitus without complications; E03.9 Hypothyroidism, unspecified; I48.91 Unspecified atrial fibrillation; Z79.01 Long term (current) use of anticoagulants; D64.9 Anemia, unspecified; I25.10 Atherosclerotic heart disease of native coronary artery without angina pectoris
CPT/HCPCS: 74420; 82365; 88300; A9270-GY; C1876; J0330; J0696; J2704; J3010

== ENCOUNTER 2016-09-13 06:36 | Inpatient (IN) | payer MEDICARE ==
[2016-09-13] MEDS ORDERED: NS 0.9% 1000 ML* 1,000 ML IV ONE (07:33)
[2016-09-13 07:54] LABS: Hematocrit 29 % (35-47); Hemoglobin 9.2 g/dl (12.0-16.0); Mean Corpuscular HGB Conc 32 g/dl (31-36); Mean Corpuscular Hemoglobin 27 pg (27-31); Mean Corpuscular Volume 86 fL (80-97); Mean Platelet Volume 8 um3 (7.4-10.4); Red Cell Distribution Width 19 % (10.5-15)
[2016-09-13 08:03] LABS: Urine Bacteria Absent (Absent); Urine Bilirubin Negative (Negative); Urine Glucose 1+(50 mg/dL) (Negative); Urine Nitrite Negative (Negative)
[2016-09-13 08:06] LABS: Albumin 3.2 g/dL (3.2-5.2); BUN/Creatinine Ratio 16.6 (8-20); C Reactive Protein 150.32 mg/L (< 5.00); Calcium 9.1 mg/dL (8.6-10.3); EGFR African American 19.7 (>60); EGFR Non-African American 15.4 (>60); Globulin 4.2 g/dL (2-4); Potassium 5.2 mmol/L (3.5-5.0); Total Bilirubin 0.4 mg/dL (0.2-1.0); Total Protein 7.4 g/dL (6.4-8.9)
--- NOTE | 2016-09-13 08:23 | RAD ---
INDICATION: LEFT flank and LEFT lower abdominal pain. History of urolithiasis. Post hysterectomy, cholecystectomy, treatment for urolithiasis including lithotripsy. COMPARISON: August 19, 2016 CT. TECHNIQUE: Multidetector CT images were obtained from the lung bases to the ischial tuberosities. Evaluation of the viscera is limited without IV contrast. Multiplanar reformation. REPORT: Grossly clear visualized lung bases. Coronary artery calcifications. Post cholecystectomy. Mildly enlarged 19.3 cm cephalocaudal liver. No focal hepatic lesions or suggestion of biliary dilatation. Moderately atrophic pancreas without suspicious finding. Unremarkable spleen. Small sliding type hiatal hernia. Negative for CT abnormality of the small bowel or medially extending appendix. Mild colonic diverticulosis without findings of diverticulitis. Negative for ascites, free air, or significant hernias. Normal adrenal glands. Ptotic RIGHT kidney without visualized focal lesion or nephrolithiasis. Mild RIGHT pelvicaliectasis without ureteral dilatation. Several LEFT kidney calyceal stones with dominant 0.6 cm inferior pole stone. Moderately severe LEFT hydroureteronephrosis without conspicuous ureteral stone. Mild LEFT perinephric and periureteral inflammatory stranding. Largely decompressed urinary bladder without suspicious finding. Post hysterectomy. Unremarkable adnexal regions. Negative for lymphadenopathy. Atherosclerotic calcification of normal diameter abdominal aorta and iliac arteries. Physiologic distention of the IVC. Polyarticular degenerative arthropathy. Negative for suspicious focal osseous lesions. IMPRESSION: 1. Mild RIGHT pelvicaliectasis without visualized obstructing stone or lesion. 2. Moderately severe LEFT hydroureteronephrosis with associated perinephric and periureteral inflammatory stranding without visualized obstructing ureteral stone. This may reflect recent passage of a ureteral stone. Calyceal stones of the LEFT kidney with dominant 0.6 cm stone at the inferior pole with interval increase in size compared with the August 19, 2016 CT. 3. Previous bilateral ureteral stents have been removed.
[2016-09-13] MEDS ORDERED: Ondansetron INJ* 2 MG/ML VIAL IV ONE (08:51)
[2016-09-13] MEDS ORDERED: Morphine INJ* 4 MG/ML 1 ML SYRINGE IV ONE (08:51)
[2016-09-13] MEDS ORDERED: Acetaminophen TAB* 325 MG PO PRN (10:19)
--- NOTE | 2016-09-13 11:06 | RAD ---
INDICATION: Left flank pain and fever COMPARISON: Most recent KUB is dated June 07, 2015 TECHNIQUE: 2 views the abdomen were obtained. FINDINGS: There is been interval removal of the bilateral ureteral stents. Overlying the left renal collecting system are 2 foci of calcification measuring 6 and 8 mm in greatest dimension. These renal calculi may correspond to the 2 calcifications seen in the upper pole collecting system on the previous KUB. There is no definite calcification overlying the expected course of either ureter or overlying the urinary bladder. IMPRESSION: 1. INTERVAL REMOVAL OF BILATERAL URETERAL STENTS. 2. 2 FOCUS OF CALCIFICATION OVERLYING THE LEFT COLLECTING SYSTEM COULD EITHER BE CHANGE IN POSITION OF STONE SEEN ON THE PREVIOUS KUB OR, ONE OR BOTH OF COULD BE NEW STONES.
[2016-09-13] MEDS: HYDROmorphone* 1 MG/ML 1 ML SYR IV SLOW PU PRN (12:50)
[2016-09-13] MEDS: NS 0.9% 1000 ML* 1,000 ML IV SCH ×2 (12:50→21:02)
--- NOTE | 2016-09-13 13:03 | HP ---
CC: Dr. Osborn; Dr. Rojo * HISTORY AND PHYSICAL: DATE OF ADMISSION: 09/13/16 PRIMARY CARE PROVIDER: Dr. Rojo. CHIEF COMPLAINT: Left flank pain and fever. HISTORY OF PRESENT ILLNESS: Mrs. Zhao is a 70-year-old female with a history of frequent problems with urinary tract infections and nephrolithiasis beginning in May 2016. From May to beginning of June, she was diagnosed with septic shock secondary to pyelonephritis and obstructive stone. She also had ATN due to that. She had stents placed in both ureters and later on that admission, the stents were replaced. During that time, she also developed spontaneous retroperitoneal hematoma. After discharge on 07/24/16, the patient was identified to have Klebsiella oxytoca urinary tract infection and on 07/31/16, the patient had replacements of bilateral stents performed by Dr. Osborn. She did well. She was observed in the hospital during that time and treated with intravenous antibiotic and discharged on third generation cephalosporin for 10 days. Since then, she has been doing fine and she was scheduled and underwent bilateral ureteral stent removal a week ago. She had been doing fine until today when she started developing left flank pain and rigors. She came into the hospital with leukocytosis and temperature of 100.3. She still complains of feeling "chills. " Her CT of the abdomen shows hydronephrosis, but no obstructing stone visualized. She is going to be placed in the hospital and admitted with diagnoses of pyelonephritis and hydronephrosis. PAST MEDICAL HISTORY: 1. History of pyelonephritis and obstructive stones in the past, status post bilateral ureteral stent placements and replacements in the past 4 months. 2. History of acute renal failure secondary to ATN with subsequent chronic kidney disease and the patient's creatinine appears to be at baseline at 1.2 at this point. 3. History of retroperitoneal hematoma at the beginning of 2016. 4. History of non-ST elevation OR at the time of hospitalization for septic shock in May 2016. 5. History of recurrent PEs, on Coumadin. 6. Hypertension. 7. Coronary artery disease. 8. Hypothyroidism. 9. Seizure disorder. 10. Hyperglycemia. 11. Hyperlipidemia. 12. Depression. 13. 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 MEDICATIONS AT HOME: Include: 1. Percocet 1 tablet every 4 hours p.r.n. 2. Alphagan eye drops 0.1% one drop both eyes daily. 3. Lipitor 20 mg daily. 4. Atenolol 50 mg daily. 5. Aspirin 81 mg daily. 6. Levothyroxine 25 mcg daily. 7. Bumex 1 mg daily. 8. Potassium citrate 15 mEq b.i.d. 9. Multivitamin 1 tablet daily. 10. Lisinopril 50 mg daily. 11. Coumadin 7.5 mg daily. 12. Sodium chloride 2% ophthalmic solution 1 drop both eyes every 4 hours p.r.n. ALLERGIES: Includes LEVAQUIN, SULFA, LATEX, and LEVOTHYROXINE, although please also note that the patient is on LEVOTHYROXINE currently. FAMILY HISTORY: History of father with diabetes and leukemia. SOCIAL HISTORY: The patient denies any alcohol, tobacco or drug use. She lives with her Bernabe, who is her surrogate. REVIEW OF SYSTEMS: The patient stated that her left flank pain developed today in the morning and started traveling down to her groin. The pain right now is localized in her left groin. She also complains of rigors and fever. Her appetite had been poor and she had one episode of loose bowel movement. She denies any abdominal pain. The patient has a history of chronic bilateral leg edema, left more than right and this is subsequent to bilateral knee replacement surgeries in the past. The patient is legally blind as mentioned above and ambulates with a roller walker or a cane. All the remaining 14 systems were reviewed with the patient and were otherwise negative. PHYSICAL EXAMINATION GENERAL: The patient is a very pleasant 70-year-old female, who is in no acute distress. Alert, awake, and oriented x3. VITAL SIGNS: Blood pressure of 136/63, heart rate of 95 and regular, respiratory rate 20, oxygen saturation 98% on room air, temperature of 100.3. HEENT: Head is atraumatic, normocephalic. Eyes: Pupils are slightly uneven with the right pupil being pinpoint and left pupil being 2 mm in diameter, both are reactive to light. Oropharynx: Clear. Mucosa moist. NECK: Supple. No JVD. No bruits bilaterally. RESPIRATORY: Clear to auscultation bilaterally. CARDIOVASCULAR: Regular rate and rhythm with no murmur. ABDOMEN: Soft, nontender. Bowel sounds present in all 4 quadrants. On evaluation of the flanks bilaterally, there is no CVA tenderness, but the patient does have tenderness in the left groin area. On further evaluation of the abdomen, there is no rebound. Bowel sounds are present in all 4 quadrants. EXTREMITIES: There is bilateral venous stasis dermatitis noted, left more than right. The left lower extremity appears larger than the right and that appears chronic, which is consistent with the patient's report. The patient has bilateral trace edema, more on the left. NEUROLOGIC EVALUATION: Speech clear. Cranial nerves II through XII grossly intact. Motor strength is 5/5 bilaterally. SKIN: Upon evaluation of the skin, once again, venous stasis dermatitis in bilateral lower extremities, left more severe. No other rashes or lesions are appreciated. LABORATORY DATA: Sodium of 129, potassium of 5.2, chloride 100, carbon dioxide 22, BUN 50, creatinine 3.02. Liver function tests unremarkable. C- reactive protein of . CBC: White blood cell count of 13.0, hemoglobin of 9.2, hematocrit of 29, and platelets of 342. INR of 4.08. Urinalysis positive for esterase, white blood cells, blood. Negative for bacteria. CT of abdomen and pelvis, impression: "Mild right pelvocaliectasis without visualized obstructing stone or lesion. [id number] left hydroureteronephrosis with associated perinephric and periureteral inflammatory stranding without visualized obstructing ureteral stone. This may reflect recent passage of ureteral stone. Caliceal stones of the left kidney with dominant 0.6 cm stone in the inferior pole with interval increase in size compared with August 2016 CT. Previous bilateral ureteral stents have been removed." ASSESSMENT AND PLAN: A 70-year-old female with history of bilateral ureteral stent removal and nephrolithiasis and hydronephrosis in the past, who presents complaining of left flank pain. At this point, the patient is going to be admitted with diagnosis of pyelonephritis. She is going to be treated with ceftriaxone. Previous 2 cultures that obtained grew Klebsiella oxytoca that was sensitive to ceftriaxone. Dr. Osborn was asked to see the patient in consultation and I discussed the case with Dr. Osborn who recommended a repeat renal ultrasound in the morning and followup. In regards to the patient's hyponatremia and hyperkalemia, her potassium citrate is going to be held. She is going to be placed on intravenous hydration with normal saline. The patient's acute renal failure is most likely due to that the patient had transient left-sided ureteral obstruction with most likely stone that already passed. We will continue hydration, stop nephrotoxic medications that would include Bumex and WENDI inhibitor and follow up renal function tests in the morning. Once again, renal ultrasound is going to be obtained in the morning. In regards to hypertension, once again, her WENDI inhibitor is going to be held as well as bumetanide. I will continue atenolol. For hypothyroidism, levothyroxine is going to be continued. In regards to the patient's coronary artery disease, the patient has no complaints of chest pain. No further evaluation will be performed at this time. We will continue aspirin. In regards to history of atrial fibrillation and PE, the patient is already anticoagulated fully with Coumadin with an INR slightly supratherapeutic at 4. Her Coumadin is going to be held. We will check daily INR levels. Code status is full. The patient's surrogate is her Bernabe. TIME SPENT: Approximately 63 minutes was spent on admission of this patient, more than half that time was spent [id number] with the patient during the interview and physical exam and counseling. [id number]/[facility] #: [id number] [facility]
--- NOTE | 2016-09-13 18:43 | ED ---
Marcelina Maki Auryana, scribed for Gerson Vital MD on 09/13/16 at 0745 . Abdominal Pain/Female - HPI Summary HPI Summary: 70 year old female presents with left sided flank pain starting last night. She reports that the pain is now also in the left abdominal pain. She also has a fever, nausea, and diarrhea. She denies any blood or mucus with BM. She denies any vomiting. She denies any recent travel. She was recently on ABX for a yeast infection. PMHx is significant for kidney stones - stent placement with removal about a week ago. Her urologist is Dr. Osborn - last CT scan end of July 2016. - History of Current Complaint Chief Complaint: EDFlankPain Stated Complaint: LEFT FLANK PAIN/ FEVER 101.0 Time Seen by Provider: 09/13/16 07:35 Hx Obtained From: Patient Hx Last Menstrual Period: N/A ?: No Onset/Duration: Gradual Onset, Lasting Days - yesterday, Still Present Timing: Constant Severity Initially: Mild Severity Currently: Mild Pain Intensity: 5 Pain Scale Used: 0-10 Numeric Location: Flank - left Radiates: Yes Radiates to: Other - left abd Associated Signs and Symptoms: Positive: Fever, Nausea, Diarrhea. Negative: Blood in Stool, Vomiting Simlar Episode/Dx as:: YES - SEE HPI Allergies/Adverse Reactions: Allergies Allergy/AdvReac Type Severity Reaction Status Date / Time Levofloxacin [From Levaquin] Allergy Severe Anaphylatic Verified 09/13/16 06:51 Shock Sulfa Drugs Allergy Intermediate Hives Verified 09/13/16 06:51 Latex Allergy ITCHY Verified 09/13/16 06:51 PIMPLE LIKE RASH Levothyroxine Allergy Rash And Verified 09/13/16 06:51 Itching PMH/Surg Hx/FS Hx/Imm Hx Endocrine/Hematology History: Reports: Hx Thyroid Disease Denies: Hx Diabetes Cardiovascular History: Reports: Hx Coronary Artery Disease, Hx Hypercholesterolemia, Hx Hypertension, Hx Peripheral Vascular Disease, Other Cardiovascular Problems/Disorders - cardiac cath Respiratory History: Reports: Hx Pulmonary Embolism - POST OP AFTER SHOULDER REPLACEMENT 2012 Denies: Hx Asthma, Hx Chronic Obstructive Pulmonary Disease (COPD) GI History: Denies: Hx Ulcer, Other GI Disorders History: Reports: Hx Kidney Infection, Hx Kidney Stones - BILAT, Hx Renal Disease - BILAT STENT EXCHANGE 07/31/16, Other Problems/Disorders - Kidney stones July 2011 Musculoskeletal History: Reports: Hx Arthritis, Other Musculoskeletal History - Bilateral knee replacements, R shoulder replacement, fractured elbow Sensory History: Reports: Hx Cataracts, Hx Contacts or Glasses, Hx Glaucoma, Hx Legally Blind, Hx Vision Problem - Pt is legally blind, Hx Hearing Aid, Hx Hearing Problem, Other Sensory Impairments Opthamlomology History: Reports: Hx Cataracts, Hx Contacts or Glasses, Hx Glaucoma, Hx Legally Blind, Hx Vision Problem - Pt is legally blind, Other Sensory Impairments Neurological History: Reports: Hx Migraine, Hx Seizures, Other Neuro Impairments /Disorders - Hx seizures, none recently Psychiatric History: Denies: Hx Anxiety, Hx Depression - Cancer History Hx Chemotherapy: No Hx Radiation Therapy: No - Surgical History Surgery Procedure, Year, and Place: Hysterectomy September 2014, 1970 R eye cataract removed, 1989 L eye cataract removed, bilateral knee replacements, R shoulder replacement, 2011 cholecystectomy, plate/screws in R elbow, kidney stone treatment x august 09 3 kidney stones remover and litho. done on others bilaterly. Hx Anesthesia Reactions: Yes - GFDS Infectious Disease History: Denies: Hx Hepatitis, Hx Human Immunodeficiency Virus (HIV), Traveled Outside the [place] in Last 30 Days Comment Only: History Other Infectious Disease - kidney infection - Family History Known Family History: Positive: Cardiac Disease, Hypertension - Social History Occupation: Retired Lives: With Family Alcohol Use: Rare Alcohol Amount: 3-4 PER YEAR Substance Use Type: Reports: None Hx Tobacco Use: No Smoking Status (MU): Never Smoked Tobacco Have You Smoked in the Last Year: No Review of Systems Positive: Fever Eyes: Negative ENT: Negative Cardiovascular: Negative Respiratory: Negative Positive: Abdominal Pain, Diarrhea, Nausea. Negative: Vomiting Positive: flank pain Musculoskeletal: Negative Skin: Negative Neurological: Negative Psychological: Normal All Other Systems Reviewed And Are Negative: Yes Physical Exam - Summary Physical Exam Summary: VITAL SIGNS: Reviewed. GENERAL: Patient is a well-developed and obese female who is lying comfortable in the stretcher. Patient is not in any acute respiratory distress. HEAD AND FACE: Normocephalic and atraumatic. EYES: PERRLA, EOMI x 2, No injected conjunctiva. EARS: Hearing grossly intact. Ear canals and tympanic membranes are WNL. MOUTH: Oropharynx within normal limits. NECK: Supple, trachea is midline, no adenopathy, no JVD. CHEST: Symmetric, no tenderness at palpation LUNGS: Clear to auscultation bilaterally. No wheezing or crackles. CVS: RRR, S1 and S2 present, no murmurs or gallops appreciated. ABDOMEN: Soft, tender in the Left lower quadrant. No signs of distention. Positive bowel sounds. No rebound no guarding, and no masses palpated. No abdominal bruit or pulsations. Left CVA tenderness. EXTREMITIES: FROM in all major joints, no edema, no cyanosis or clubbing. NEURO: Alert and oriented x 3. No acute neurological deficits. Speech is normal. SKIN: Dry and warm Triage Information Reviewed: Yes Vital Signs On Initial Exam: Initial Vitals Temp Pulse Resp BP Pulse Ox 99.0 F 96 16 120/60 99 09/13/16 06:45 09/13/16 06:45 09/13/16 06:45 09/13/16 06:45 09/13/16 06:45 Vital Signs Reviewed: Yes Diagnostics - Vital Signs Vital Signs Temp Pulse Resp BP Pulse Ox 09/13/16 06:45 99.0 F 96 16 120/60 99 - Laboratory Lab Results: Lab Results 09/13/16 09/13/16 09/13/16 Range/Units 07:05 07:40 07:40 WBC 13.0 H (3.5-10.8) 10^3/ul RBC 3.40 L (4.0-5.4) 10^6/ul Hgb 9.2 L (12.0-16.0) g/dl Hct 29 L (35-47) % MCV 86 (80-97) fL MCH 27 (27-31) pg MCHC 32 (31-36) g/dl RDW 19 H (10.5-15) % Plt Count 342 (150-450) 10^3/ul MPV 8 (7.4-10.4) um3 Neut % (Auto) 81.6 (38-83) % Lymph % (Auto) 8.7 L (25-47) % [place] % (Auto) 8.6 (1-9) % Eos % (Auto) 0.4 (0-6) % Baso % (Auto) 0.7 (0-2) % Absolute Neuts (auto) 10.6 H (1.5-7.7) 10^3/ul Absolute Lymphs (auto) 1.1 (1.0-4.8) 10^3/ul Absolute Monos (auto) 1.1 H (0-0.8) 10^3/ul Absolute Eos (auto) 0.1 (0-0.6) 10^3/ul Absolute Basos (auto) 0.1 (0-0.2) 10^3/ul Absolute Nucleated RBC 0 10^3/ul Nucleated RBC % 0 INR (Anticoag Therapy) (0.89-1.11) Sodium 129 L (133-145) mmol/L Potassium 5.2 H (3.5-5.0) mmol/L Chloride 100 L (101-111) mmol/L Carbon Dioxide 22 (22-32) mmol/L Anion Gap 7 (2-11) mmol/L BUN 50 H (6-24) mg/dL Creatinine 3.02 H (0.51-0.95) mg/dL Est GFR ( Amer) 19.7 (>60) Est GFR (Non-Af Amer) 15.4 (>60) BUN/Creatinine Ratio 16.6 (8-20) Glucose 188 H (70-100) mg/dL Lactic Acid (0.5-2.0) mmol/L Calcium 9.1 (8.6-10.3) mg/dL Total Bilirubin 0.40 (0.2-1.0) mg/dL AST 10 L (13-39) U/L ALT 13 (7-52) U/L Alkaline Phosphatase 52 (34-104) U/L C-Reactive Protein 150.32 H (< 5.00) mg/L Total Protein 7.4 (6.4-8.9) g/dL Albumin 3.2 (3.2-5.2) g/dL Globulin 4.2 H (2-4) g/dL Albumin/Globulin Ratio 0.8 L (1-3) Amylase 44 (29-103) U/L Lipase 26 (11.0-82.0) U/L Urine Color Yellow Urine Appearance Cloudy Urine pH 6.0 (5-9) Ur Specific [place] 1.015 (1.010-1.030) Urine Protein 1+(30 mg/dl) H (Negative) Urine Ketones Negative (Negative) Urine Blood 2+ H (Negative) Urine Nitrate Negative (Negative) Urine Bilirubin Negative (Negative) Urine Urobilinogen Negative (Negative) Ur Leukocyte Esterase 3+ H (Negative) Urine WBC (Auto) 3+(>20/hpf) H (Absent) Urine RBC (Auto) 2+(6-10/hpf) H (Absent) Ur Squamous Epith Cells Present H (Absent) Urine Bacteria Absent (Absent) Urine Glucose 1+(50 mg/dl) H (Negative) 09/13/16 09/13/16 Range/Units 07:40 07:40 WBC (3.5-10.8) 10^3/ul RBC (4.0-5.4) 10^6/ul Hgb (12.0-16.0) g/dl Hct (35-47) % MCV (80-97) fL MCH (27-31) pg MCHC (31-36) g/dl RDW (10.5-15) % Plt Count (150-450) 10^3/ul MPV (7.4-10.4) um3 Neut % (Auto) (38-83) % Lymph % (Auto) (25-47) % [place] % (Auto) (1-9) % Eos % (Auto) (0-6) % Baso % (Auto) (0-2) % Absolute Neuts (auto) (1.5-7.7) 10^3/ul Absolute Lymphs (auto) (1.0-4.8) 10^3/ul Absolute Monos (auto) (0-0.8) 10^3/ul Absolute Eos (auto) (0-0.6) 10^3/ul Absolute Basos (auto) (0-0.2) 10^3/ul Absolute Nucleated RBC 10^3/ul Nucleated RBC % INR (Anticoag Therapy) 4.08 H (0.89-1.11) Sodium (133-145) mmol/L Potassium (3.5-5.0) mmol/L Chloride (101-111) mmol/L Carbon Dioxide (22-32) mmol/L Anion Gap (2-11) mmol/L BUN (6-24) mg/dL Creatinine (0.51-0.95) mg/dL Est GFR ( Amer) (>60) Est GFR (Non-Af Amer) (>60) BUN/Creatinine Ratio (8-20) Glucose (70-100) mg/dL Lactic Acid 1.1 (0.5-2.0) mmol/L Calcium (8.6-10.3) mg/dL Total Bilirubin (0.2-1.0) mg/dL AST (13-39) U/L ALT (7-52) U/L Alkaline Phosphatase (34-104) U/L C-Reactive Protein (< 5.00) mg/L Total Protein (6.4-8.9) g/dL Albumin (3.2-5.2) g/dL Globulin (2-4) g/dL Albumin/Globulin Ratio (1-3) Amylase (29-103) U/L Lipase (11.0-82.0) U/L Urine Color Urine Appearance Urine pH (5-9) Ur Specific [place] (1.010-1.030) Urine Protein (Negative) Urine Ketones (Negative) Urine Blood (Negative) Urine Nitrate (Negative) Urine Bilirubin (Negative) Urine Urobilinogen (Negative) Ur Leukocyte Esterase (Negative) Urine WBC (Auto) (Absent) Urine RBC (Auto) (Absent) Ur Squamous Epith Cells (Absent) Urine Bacteria (Absent) Urine Glucose (Negative) Result Diagrams: 09/13/16 07:40 09/13/16 07:40 Lab Statement: Any lab studies that have been ordered have been reviewed, and results considered in the medical decision making process. - Radiology ABD XR Xray Interpretation: Positive (See Comments) - IMPRESSION: 1. INTERVAL REMOVAL OF BILATERAL URETERAL STENTS. 2. 2 FOCUS OF CALCIFICATION OVERLYING THE LEFT COLLECTING SYSTEM COULD EITHER BE CHANGE IN POSITION OF STONE SEEN ON THE PREVIOUS KUB OR, ONE OR BOTH OF COULD BE NEW STONES. Radiology Interpretation Completed By: Radiologist - CT ABD/PEL CT Interpretation: Positive (See Comments) - IMPRESSION: 1. Mild RIGHT pelvicaliectasis without visualized obstructing stone or lesion. 2. Moderately severe LEFT hydroureteronephrosis with associated perinephric and periureteral inflammatory stranding without visualized obstructing ureteral stone. This may reflect recent passage of a ureteral stone. Calyceal stones of the LEFT kidney with dominant 0.6 cm stone at the inferior pole with interval increase in size compared with the August 19, 2016 CT. 3. Previous bilateral ureteral stents have been removed. CT Interpretation Completed By: Radiologist Abdominal Pain Fem Course/Dx - Course Course Of Treatment: 70 year old female presents with left sided flank pain starting last night. She reports that the pain is now also in the left abdominal pain. She also has a fever, nausea, and diarrhea. She denies any blood or mucus with BM. She denies any vomiting. She denies any recent travel. She was recently on ABX for a yeast infection. PMHx is significant for kidney stones - stent placement with removal about a week ago. Her urologist is Dr. Osborn - last CT scan end of July 2016. Test results WNL except WBC 13, INR 4.08, sodium 129, potassium 5.2, BUN 50, Creatinine 3.02. This is consistent with acute chronic renal failure. CRP 150, and urinalysis is contaminated. We will send for urine cultures. ABD/PEL CT - IMPRESSION: 1. Mild RIGHT pelvicaliectasis without visualized obstructing stone or lesion. 2. Moderately severe LEFT hydroureteronephrosis with associated perinephric and periureteral inflammatory stranding without visualized obstructing ureteral stone. This may reflect recent passage of a ureteral stone. Calyceal stones of the LEFT kidney with dominant 0.6 cm stone at the inferior pole with interval increase in size compared with the August 19, 2016 CT. 3. Previous bilateral ureteral stents have been removed. In ED course, patient was given IV fluids and morphine for pain. Patient has a low grade fever and since urine is contaminated and the patient is symptomatic, I gave the patient 2g Rocephin. I discussed with Dr. Osborn, the urologist, who came in and examined the patient. After assessment, Dr. Osborn recommended the patient be admitted. I then discussed with Dr. Azar, the hospitalist, who accepted admission of the patient. Patient is A&Ox3 and is hemodynamically stable. - Diagnoses Differential Diagnosis: Positive: Diverticulitis, Ovarian Cyst, Renal Colic, Urinary Tract Infection Provider Diagnoses: Dehydration, Renal failure, UTI (urinary tract infection) - Provider Notifications Discussed Care Of Patient With: Agustin Osborn Time Discussed With Above Provider: 09:32 - recommends admission; Dr. Azar consulted @ 09:56 - agrees to admission Instructed by Provider To: Admit As Inpatient Discharge - Discharge Plan Condition: Stable Disposition: ADMITTED TO [facility] documentation as recorded by the Marcelina whyte Auryana accurately reflects the service I personally performed and the decisions made by me, Gerson Vital MD.
[2016-09-13] MEDS: oxyCODONE/Acetamin 5/325 MG* TAB PO PRN (21:04)
[2016-09-14] MEDS: HYDROmorphone* 1 MG/ML 1 ML SYR IV SLOW PU PRN (01:07)
[2016-09-14] MEDS: NS 0.9% 1000 ML* 1,000 ML IV SCH ×2 (04:58→14:05)
[2016-09-14] MEDS: Levothyroxine TAB* 25 MCG TAB PO SCH (05:29)
[2016-09-14 06:51] LABS: Hematocrit 25 % (35-47); Hemoglobin 7.9 g/dl (12.0-16.0); Mean Corpuscular HGB Conc 32 g/dl (31-36); Mean Corpuscular Hemoglobin 28 pg (27-31); Mean Corpuscular Volume 87 fL (80-97); Mean Platelet Volume 8 um3 (7.4-10.4); Red Blood Count 2.83 10^6/ul (4.0-5.4); Red Cell Distribution Width 18 % (10.5-15)
[2016-09-14 07:08] LABS: BUN/Creatinine Ratio 14.3 (8-20); Calcium 8.2 mg/dL (8.6-10.3); EGFR African American 19.9 (>60); EGFR Non-African American 15.5 (>60); Potassium 5.2 mmol/L (3.5-5.0)
--- NOTE | 2016-09-14 08:17 | PN ---
Subjective Date of Service: 09/14/16 Interval History: Patient seen this morning. Feeling better than yesterday although feels "pain creeping back" into her L flank. Not much of an appetite. Family History: Unchanged from Admission Social History: Unchanged from Admission Past Medical History: Unchanged from Admission Objective Active Medications: Acetaminophen (Tylenol Tab*) 650 mg PO Q4H PRN Aspirin (Aspirin Ec Low Dose*) 81 mg PO QAM JN Atenolol (Tenormin Tab*) 50 mg PO QAM JN Atorvastatin Calcium (Lipitor*) 20 mg PO QAM JN Brimonidine Tartrate (Alphagan P 0.1% (Nf)) 1 drop BOTH EYES DAILY JN Hydromorphone HCl (Dilaudid Iv*) 1 mg IV SLOW PU Q4H PRN Ceftriaxone Sodium 1,000 mg/ (Sodium Chloride) 50 mls @ 200 mls/hr IVPB Q24H JN Sodium Chloride (Ns 0.9% 1000 Ml*) 1,000 mls @ 125 mls/hr IV PER RATE JN Levothyroxine Sodium (Synthroid Tab*) 25 mcg PO 0600 JN Oxycodone/Acetaminophen (Percocet 5/325 Tab*) 1 tab PO Q4H PRN Pharmacy Profile Note (Coumadin Per Pharmacy*) 1 note FOLLOW UP .PER PHARMACY PROTOC JN Sodium Chloride (Hypertonic) (Karolina 128 Opth 2% Ale*) 1 drop BOTH EYES Q4H PRN Vital Signs 09/13/16 09/13/16 09/13/16 11:00 11:02 12:13 Temperature 98.4 F Pulse Rate 92 95 Respiratory 16 Rate Blood Pressure 137/64 150/58 (mmHg) O2 Sat by Pulse 98 100 Oximetry 09/13/16 09/13/16 09/13/16 19:21 20:00 21:04 Temperature 100.2 F Pulse Rate 95 Respiratory 17 16 16 Rate Blood Pressure 136/45 (mmHg) O2 Sat by Pulse 99 Oximetry 09/14/16 09/14/16 04:03 07:39 Temperature 98.9 F 98.1 F Pulse Rate 87 83 Respiratory 18 17 Rate Blood Pressure 93/50 126/54 (mmHg) O2 Sat by Pulse 97 100 Oximetry Oxygen Devices in Use Now: None Appearance: Elderly, F, sitting in chair in NAD Eyes: No Scleral Icterus Ears/Nose/Mouth/Throat: Mucous Membranes Moist Neck: NL Appearance and Movements; NL JVP Respiratory: Symmetrical Chest Expansion and Respiratory Effort, Clear to Auscultation Cardiovascular: NL Sounds; No Murmurs; No JVD, RRR Abdominal: - - Obese, soft, NTND, BS+, L CVA tenderness Lymphatic: No Cervical Adenopathy Extremities: - - Mild LE edema Skin: - - Chronic LE skin changes Neurological: Alert and Oriented x 3 Result Diagrams: 09/14/16 06:36 09/14/16 06:36 Assess/Plan/Problems-Billing Assessment: L pyelonephritis, L hydroureteronephrosis likely 2/2 passed ureteral stone, ANDREW in a 70 yo F with hx of recurrent nephrolithiasis with obstruction, 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 Continue IV CTX for now. No obstructing stones noted on CT scan. Repeat renal US today. (2) ANDREW (acute kidney injury) Current Visit: No Comment: Likely due to pyelonephritis, obstructive uropathy. Creatinine stable. Repeat US pending. Continue IVF and daily BMP. Holding all nephrotoxic medications. (3) HTN (hypertension) Current Visit: No Comment: Holding Lisinopril and Bumex. Continue home Atenolol. (4) Hypothyroidism Current Visit: No Comment: Continue synthroid. (allergy to levothyroxine) (5) Seizure disorder Current Visit: No Comment: Reports being taken off Topamax due to contribution to renal stones (6) CAD (coronary artery disease) Current Visit: No Comment: Continue ASA and statin. Had LHC without stenting in 2011 in [place] (7) History of pulmonary embolus (PE) Current Visit: No Comment: Continue to hold coumadin with elevated INR. Monitor daily. (8) DVT prophylaxis Current Visit: No Comment: Coumadin Status and Disposition: Inpatient for pyelonephritis, ANDREW, hydronephrosis
[2016-09-14] MEDS: cefTRIAXone VIAL(*) 1,000 MG in NS 0.9% 50 ML* 50 ML IVPB SCH (08:30)
[2016-09-14] MEDS: Sodium Chloride 2% OPTH.SOL* 15 ML BTL BOTH EYES PRN ×2 (08:30→09:37)
[2016-09-14] MEDS: Atenolol TAB* 50 MG PO SCH (08:31)
[2016-09-14] MEDS: Atorvastatin* 20 MG TAB PO SCH (08:31)
[2016-09-14] MEDS: Aspirin EC Low Dose* 81 MG TAB.EC PO SCH (08:31)
[2016-09-14] MEDS: PTO: Brimonidine P 0.1%(NF) 1 DROP BTL BOTH EYES SCH (09:36)
--- NOTE | 2016-09-14 15:46 | RAD ---
HISTORY: Follow-up left hydronephrosis COMPARISONS: CT dated September 13, 2016 TECHNIQUE: Multiple transverse and longitudinal ultrasound images were obtained of the bladder using grayscale and color Doppler imaging. FINDINGS: The study is limited by patient body habitus. RIGHT KIDNEY: The right kidney is normal in shape, size, contour, and echogenicity. There is mild right pelvocaliectasis similar to the previous CT examination. The right kidney measures 12.7 x 6.4 x 5.8 cm. LEFT KIDNEY: The left kidney is normal in shape, size, contour, and echogenicity. There is moderate to severe left-sided hydronephrosis, similar to the previous examination. The left kidney measures 12.6 x 5.2 x 5.7 cm. BLADDER: The bladder is incompletely distended. A right ureteral jet is identified. The left ureteral jet is not seen. AORTA AND IVC: No images are submitted of the vasculature. RETROPERITONEUM: Unremarkable. OTHER: None. IMPRESSION: PERSISTENT, BILATERAL, LEFT GREATER THAN RIGHT HYDRONEPHROSIS. A RIGHT URETERAL JET IS IDENTIFIED. LEFT URETERAL JET IS NOT SEEN.
[2016-09-14] MEDS: oxyCODONE/Acetamin 5/325 MG* TAB PO PRN ×2 (17:03→21:57)
[2016-09-15] MEDS: NS 0.9% 1000 ML* 1,000 ML IV SCH ×4 (00:14→21:40)
[2016-09-15] MEDS: Levothyroxine TAB* 25 MCG TAB PO SCH (05:57)
--- NOTE | 2016-09-15 08:32 | PN ---
Subjective Date of Service: 09/15/16 Interval History: 2/4 BCx (anaerobic bottles) positive for GNB yesterday Patient seen this morning. Says she is feeling well. Denies fever or chills. Says she had pain medication last night and has needed none since. Appetite has not been great but she says it has been that way for some time. No dysuria. Family History: Unchanged from Admission Social History: Unchanged from Admission Past Medical History: Unchanged from Admission Objective Active Medications: Acetaminophen (Tylenol Tab*) 650 mg PO Q4H PRN PRN Reason: FEVER/PAIN Last Admin: 09/13/16 19:17 Dose: 650 mg Aspirin (Aspirin Ec Low Dose*) 81 mg PO QAM [facility] Last Admin: 09/14/16 08:31 Dose: 81 mg Atenolol (Tenormin Tab*) 50 mg PO QAM [facility] Last Admin: 09/14/16 08:31 Dose: 50 mg Atorvastatin Calcium (Lipitor*) 20 mg PO QAM [facility] Last Admin: 09/14/16 08:31 Dose: 20 mg Brimonidine Tartrate (Alphagan P 0.1% (Nf)) 1 drop BOTH EYES DAILY [facility] Last Admin: 09/14/16 09:36 Dose: 1 drop Hydromorphone HCl (Dilaudid Iv*) 1 mg IV SLOW PU Q4H PRN PRN Reason: PAIN Last Admin: 09/14/16 01:07 Dose: 1 mg Ceftriaxone Sodium 1,000 mg/ (Sodium Chloride) 50 mls @ 200 mls/hr IVPB Q24H [facility] Last Admin: 09/14/16 08:30 Dose: 200 mls/hr Sodium Chloride (Ns 0.9% 1000 Ml*) 1,000 mls @ 125 mls/hr IV PER RATE [facility] Last Admin: 09/15/16 07:55 Dose: 125 mls/hr Levothyroxine Sodium (Synthroid Tab*) 25 mcg PO 0600 [facility] Last Admin: 09/15/16 05:57 Dose: 25 mcg Oxycodone/Acetaminophen (Percocet 5/325 Tab*) 1 tab PO Q4H PRN PRN Reason: PAIN Last Admin: 09/14/16 21:57 Dose: 1 tab Pharmacy Profile Note (Coumadin Per Pharmacy*) 1 note FOLLOW UP .PER PHARMACY PROTOC [facility] PRN Reason: Protocol Sodium Chloride (Hypertonic) (Karolina 128 Opth 2% Ale*) 1 drop BOTH EYES Q4H PRN PRN Reason: DRY EYE Last Admin: 09/14/16 09:37 Dose: 1 drop Vital Signs 09/14/16 09/14/16 09/14/16 11:12 15:14 17:03 Temperature 98.3 F 98.3 F Pulse Rate 76 80 Respiratory 17 20 16 Rate Blood Pressure 98/43 135/49 (mmHg) O2 Sat by Pulse 99 99 Oximetry 09/14/16 09/14/16 09/14/16 19:03 19:13 20:00 Temperature 97.3 F Pulse Rate 77 Respiratory 20 20 20 Rate Blood Pressure 127/39 (mmHg) O2 Sat by Pulse 99 Oximetry 09/14/16 09/15/16 09/15/16 21:57 00:13 03:37 Temperature 98.0 F 97.9 F Pulse Rate 78 75 Respiratory 18 16 16 Rate Blood Pressure 123/51 108/68 (mmHg) O2 Sat by Pulse 99 98 Oximetry Oxygen Devices in Use Now: None Appearance: Middle-aged, F, sitting in chair in NAD Eyes: No Scleral Icterus Ears/Nose/Mouth/Throat: Mucous Membranes Moist Neck: NL Appearance and Movements; NL JVP Respiratory: Symmetrical Chest Expansion and Respiratory Effort, Clear to Auscultation Cardiovascular: NL Sounds; No Murmurs; No JVD, RRR Abdominal: NL Sounds; No Tenderness; No Distention, - - no CVA tenderness Lymphatic: No Cervical Adenopathy Extremities: - - B/L LE edema Skin: - - Chronic LE skin changes Neurological: Alert and Oriented x 3 Result Diagrams: 09/14/16 06:36 09/14/16 06:36 Assess/Plan/Problems-Billing Assessment: L pyelonephritis, L hydroureteronephrosis likely 2/2 passed ureteral stone, ANDREW in a 70 yo F with hx of recurrent nephrolithiasis with obstruction, 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 Spoke to Dr. Teixeira, will possibly need to go back to [place] if labs appear worse, will make NPO for now. Continue IV CTX for now, can broaden if needed. (2) ANDREW (acute kidney injury) Current Visit: No Comment: Likely due to pyelonephritis, obstructive uropathy. Creatinine today is pending. Continue IVF and daily BMP. Holding all nephrotoxic medications. (3) HTN (hypertension) Current Visit: No Comment: Holding Lisinopril and Bumex. Continue home Atenolol. (4) Hypothyroidism Current Visit: No Comment: Continue synthroid. (allergy to levothyroxine) (5) Seizure disorder Current Visit: No Comment: Reports being taken off Topamax due to contribution to renal stones (6) CAD (coronary artery disease) Current Visit: No Comment: Continue ASA and statin. Had LHC without stenting in 2012 in [place] (7) History of pulmonary embolus (PE) Current Visit: No Comment: INR has been elevated, today's level pending. Dosing as per pharmacy. (8) DVT prophylaxis Current Visit: No Comment: Coumadin Status and Disposition: Inpatient for pyelonephritis, ANDREW, hydronephrosis
[2016-09-15] MEDS: Atenolol TAB* 50 MG PO SCH (09:14)
[2016-09-15] MEDS: Aspirin EC Low Dose* 81 MG TAB.EC PO SCH ×2 (09:14→10:43)
[2016-09-15] MEDS: Atorvastatin* 20 MG TAB PO SCH ×2 (09:14→10:43)
[2016-09-15] MEDS: PTO: Brimonidine P 0.1%(NF) 1 DROP BTL BOTH EYES SCH (09:45)
[2016-09-15] MEDS: cefTRIAXone VIAL(*) 1,000 MG in NS 0.9% 50 ML* 50 ML IVPB SCH (09:45)
[2016-09-15] MEDS: Sodium Chloride 2% OPTH.SOL* 15 ML BTL BOTH EYES PRN (09:47)
[2016-09-15 09:56] LABS: Hematocrit 28 % (35-47); Hemoglobin 8.8 g/dl (12.0-16.0); Mean Corpuscular HGB Conc 32 g/dl (31-36); Mean Corpuscular Hemoglobin 28 pg (27-31); Mean Corpuscular Volume 87 fL (80-97); Mean Platelet Volume 8 um3 (7.4-10.4); Red Blood Count 3.17 10^6/ul (4.0-5.4); Red Cell Distribution Width 18 % (10.5-15); White Blood Count 7.9 10^3/ul (3.5-10.8)
[2016-09-15 10:10] LABS: BUN/Creatinine Ratio 17.2 (8-20); Calcium 8.7 mg/dL (8.6-10.3); EGFR African American 25.9 (>60); EGFR Non-African American 20.1 (>60)
[2016-09-15] MEDS ORDERED: Zosyn per Pharmacy* NOTE FOLLOW UP SCH (13:00)
[2016-09-15] MEDS ORDERED: Omeprazole CAP* 20 MG ONE (23:04)
[2016-09-16] MEDS: Omeprazole CAP* 20 MG PO SCH (05:47)
[2016-09-16] MEDS: Levothyroxine TAB* 25 MCG TAB PO SCH (05:47)
[2016-09-16 07:24] LABS: Calcium 8.6 mg/dL (8.6-10.3); EGFR African American 29.7 (>60); EGFR Non-African American 23.1 (>60); Potassium 4.6 mmol/L (3.5-5.0)
[2016-09-16] MEDS: NS 0.9% 1000 ML* 1,000 ML IV SCH ×2 (08:46→15:13)
[2016-09-16] MEDS: PTO: Brimonidine P 0.1%(NF) 1 DROP BTL BOTH EYES SCH (08:47)
--- NOTE | 2016-09-16 08:54 | PN ---
Subjective Date of Service: 09/16/16 Interval History: Patient seen this morning. She is frustrated about her frequent urination while on IVF. Willing to get renal US but asking to leave today. Pain is improved. Family History: Unchanged from Admission Social History: Unchanged from Admission Past Medical History: Unchanged from Admission Objective Active Medications: Acetaminophen (Tylenol Tab*) 650 mg PO Q4H PRN Aspirin (Aspirin Ec Low Dose*) 81 mg PO QAM JN Atenolol (Tenormin Tab*) 50 mg PO QAM JN Atorvastatin Calcium (Lipitor*) 20 mg PO QAM JN Brimonidine Tartrate (Alphagan P 0.1% (Nf)) 1 drop BOTH EYES DAILY JN Hydromorphone HCl (Dilaudid Iv*) 1 mg IV SLOW PU Q4H PRN Sodium Chloride (Ns 0.9% 1000 Ml*) 1,000 mls @ 75 mls/hr IV PER RATE JN Piperacillin Sod/Tazobactam (Sod 3.375 gm/ Sodium Chloride) 100 mls @ 25 mls/ hr IVPB Q8H JN Levothyroxine Sodium (Synthroid Tab*) 25 mcg PO 0600 JN Omeprazole (Prilosec Cap*) 20 mg PO DAILY@0600 JN Oxycodone/Acetaminophen (Percocet 5/325 Tab*) 1 tab PO Q4H PRN Pharmacy Consult (Zosyn Per Pharmacy*) 1 note FOLLOW UP .ZOSYN PER PHARMACY JN Pharmacy Profile Note (Coumadin Per Pharmacy*) 1 note FOLLOW UP .PER PHARMACY PROTOC JN Sodium Chloride (Hypertonic) (Karolina 128 Opth 2% Ale*) 1 drop BOTH EYES Q4H PRN Vital Signs 09/15/16 09/15/16 09/15/16 15:54 19:23 20:07 Temperature 98.5 F 98.6 F Pulse Rate 72 73 Respiratory 18 20 18 Rate Blood Pressure 119/48 118/83 (mmHg) O2 Sat by Pulse 100 100 Oximetry 09/15/16 09/16/16 09/16/16 23:24 03:49 07:50 Temperature 97.9 F 98.2 F 98.1 F Pulse Rate 84 86 74 Respiratory 20 16 16 Rate Blood Pressure 127/81 116/46 117/49 (mmHg) O2 Sat by Pulse 100 100 99 Oximetry Oxygen Devices in Use Now: None Appearance: Middle-aged, F, laying in bed in NAD Eyes: No Scleral Icterus Ears/Nose/Mouth/Throat: Mucous Membranes Moist Neck: NL Appearance and Movements; NL JVP Respiratory: Symmetrical Chest Expansion and Respiratory Effort, Clear to Auscultation Cardiovascular: NL Sounds; No Murmurs; No JVD, RRR Abdominal: NL Sounds; No Tenderness; No Distention Lymphatic: No Cervical Adenopathy Extremities: - - B/L LE edema Skin: - - Chronic LE skin changes Neurological: Alert and Oriented x 3 Result Diagrams: 09/15/16 09:41 09/16/16 06:10 Additional Lab and Data: Lab Results 09/13/16 09/13/16 09/13/16 Range/Units 07:05 07:40 07:40 WBC 13.0 H (3.5-10.8) 10^3/ul RBC 3.40 L (4.0-5.4) 10^6/ul Hgb 9.2 L (12.0-16.0) g/dl Hct 29 L (35-47) % MCV 86 (80-97) fL MCH 27 (27-31) pg MCHC 32 (31-36) g/dl RDW 19 H (10.5-15) % Plt Count 342 (150-450) 10^3/ul MPV 8 (7.4-10.4) um3 Neut % (Auto) 81.6 (38-83) % Lymph % (Auto) 8.7 L (25-47) % [place] % (Auto) 8.6 (1-9) % Eos % (Auto) 0.4 (0-6) % Baso % (Auto) 0.7 (0-2) % Absolute Neuts (auto) 10.6 H (1.5-7.7) 10^3/ul Absolute Lymphs (auto) 1.1 (1.0-4.8) 10^3/ul Absolute Monos (auto) 1.1 H (0-0.8) 10^3/ul Absolute Eos (auto) 0.1 (0-0.6) 10^3/ul Absolute Basos (auto) 0.1 (0-0.2) 10^3/ul Absolute Nucleated RBC 0 10^3/ul Nucleated RBC % 0 INR (Anticoag Therapy) (0.89-1.11) Sodium 129 L (133-145) mmol/L Potassium 5.2 H (3.5-5.0) mmol/L Chloride 100 L (101-111) mmol/L Carbon Dioxide 22 (22-32) mmol/L Anion Gap 7 (2-11) mmol/L BUN 50 H (6-24) mg/dL Creatinine 3.02 H (0.51-0.95) mg/dL Est GFR ( Amer) 19.7 (>60) Est GFR (Non-Af Amer) 15.4 (>60) BUN/Creatinine Ratio 16.6 (8-20) Glucose 188 H (70-100) mg/dL Lactic Acid (0.5-2.0) mmol/L Calcium 9.1 (8.6-10.3) mg/dL Total Bilirubin 0.40 (0.2-1.0) mg/dL AST 10 L (13-39) U/L ALT 13 (7-52) U/L Alkaline Phosphatase 52 (34-104) U/L C-Reactive Protein 150.32 H (< 5.00) mg/L Total Protein 7.4 (6.4-8.9) g/dL Albumin 3.2 (3.2-5.2) g/dL Globulin 4.2 H (2-4) g/dL Albumin/Globulin Ratio 0.8 L (1-3) Amylase 44 (29-103) U/L Lipase 26 (11.0-82.0) U/L Urine Color Yellow Urine Appearance Cloudy Urine pH 6.0 (5-9) Ur Specific Holl[place] 1.015 (1.010-1.030) Urine Protein 1+(30 mg/dl) H (Negative) Urine Ketones Negative (Negative) Urine Blood 2+ H (Negative) Urine Nitrate Negative (Negative) Urine Bilirubin Negative (Negative) Urine Urobilinogen Negative (Negative) Ur Leukocyte Esterase 3+ H (Negative) Urine WBC (Auto) 3+(>20/hpf) H (Absent) Urine RBC (Auto) 2+(6-10/hpf) H (Absent) Ur Squamous Epith Cells Present H (Absent) Urine Bacteria Absent (Absent) Urine Glucose 1+(50 mg/dl) H (Negative) 09/13/16 09/13/16 Range/Units 07:40 07:40 WBC (3.5-10.8) 10^3/ul RBC (4.0-5.4) 10^6/ul Hgb (12.0-16.0) g/dl Hct (35-47) % MCV (80-97) fL MCH (27-31) pg MCHC (31-36) g/dl RDW (10.5-15) % Plt Count (150-450) 10^3/ul MPV (7.4-10.4) um3 Neut % (Auto) (38-83) % Lymph % (Auto) (25-47) % [place] % (Auto) (1-9) % Eos % (Auto) (0-6) % Baso % (Auto) (0-2) % Absolute Neuts (auto) (1.5-7.7) 10^3/ul Absolute Lymphs (auto) (1.0-4.8) 10^3/ul Absolute Monos (auto) (0-0.8) 10^3/ul Absolute Eos (auto) (0-0.6) 10^3/ul Absolute Basos (auto) (0-0.2) 10^3/ul Absolute Nucleated RBC 10^3/ul Nucleated RBC % INR (Anticoag Therapy) 4.08 H (0.89-1.11) Sodium (133-145) mmol/L Potassium (3.5-5.0) mmol/L Chloride (101-111) mmol/L Carbon Dioxide (22-32) mmol/L Anion Gap (2-11) mmol/L BUN (6-24) mg/dL Creatinine (0.51-0.95) mg/dL Est GFR ( Amer) (>60) Est GFR (Non-Af Amer) (>60) BUN/Creatinine Ratio (8-20) Glucose (70-100) mg/dL Lactic Acid 1.1 (0.5-2.0) mmol/L Calcium (8.6-10.3) mg/dL Total Bilirubin (0.2-1.0) mg/dL AST (13-39) U/L ALT (7-52) U/L Alkaline Phosphatase (34-104) U/L C-Reactive Protein (< 5.00) mg/L Total Protein (6.4-8.9) g/dL Albumin (3.2-5.2) g/dL Globulin (2-4) g/dL Albumin/Globulin Ratio (1-3) Amylase (29-103) U/L Lipase (11.0-82.0) U/L Urine Color Urine Appearance Urine pH (5-9) Ur Specific Holl[place] (1.010-1.030) Urine Protein (Negative) Urine Ketones (Negative) Urine Blood (Negative) Urine Nitrate (Negative) Urine Bilirubin (Negative) Urine Urobilinogen (Negative) Ur Leukocyte Esterase (Negative) Urine WBC (Auto) (Absent) Urine RBC (Auto) (Absent) Ur Squamous Epith Cells (Absent) Urine Bacteria (Absent) Urine Glucose (Negative) Assess/Plan/Problems-Billing Assessment: L pyelonephritis, L hydroureteronephrosis likely 2/2 passed ureteral stone, ANDREW in a 70 yo F with hx of recurrent nephrolithiasis with obstruction, 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 NPO as per Dr. Osborn. Bacteroides growing on BCx , switched to Zosyn yesterday. (2) ANDREW (acute kidney injury) Current Visit: No Comment: Likely due to pyelonephritis, obstructive uropathy. Creatinine improving. Continue IVF and daily BMP. Holding all nephrotoxic medications. (3) HTN (hypertension) Current Visit: No Comment: Holding Lisinopril and Bumex. Continue home Atenolol. (4) Hypothyroidism Current Visit: No Comment: Continue synthroid. (allergy to levothyroxine) (5) Seizure disorder Current Visit: No Comment: Reports being taken off Topamax due to contribution to renal stones (6) CAD (coronary artery disease) Current Visit: No Comment: Continue ASA and statin. Had LHC without stenting in 2012 in [place] (7) History of pulmonary embolus (PE) Current Visit: No Comment: INR therapeutic today. Dosing as per pharmacy. (8) DVT prophylaxis Current Visit: No Comment: Coumadin Status and Disposition: Inpatient for pyelonephritis, ANDREW, hydronephrosis
[2016-09-16] MEDS: Sodium Chloride 2% OPTH.SOL* 15 ML BTL BOTH EYES PRN (09:01)
--- NOTE | 2016-09-16 10:33 | RAD ---
Indication: Evaluate hydronephrosis. Real-time sonography of the kidneys was performed. Comparison is made with previous exam dated July 21, 2015. The right kidney measures 11.9 x 4.4 x 4.7 cm. Moderate degree of hydronephrosis is noted. The left kidney measures 12.2 x 6.5 x 4.6 cm with moderate to marked degree of hydronephrosis. Calculi are noted within the lower pole and midportion of the left renal collecting system consistent with calculi measuring up to 5 mm in the midpole and 10 mm in the lower pole. IMPRESSION: Moderate right hydronephrosis. Marked left hydronephrosis. Multiple calculi are noted in the left renal collecting systems. Findings are not significantly changed since previous exam of September 14, 2016.
[2016-09-16] MEDS: Aspirin EC Low Dose* 81 MG TAB.EC PO SCH (11:29)
[2016-09-16] MEDS: Atenolol TAB* 50 MG PO SCH ×2 (11:31→11:49)
[2016-09-16] MEDS: Atorvastatin* 20 MG TAB PO SCH (11:32)
[2016-09-16] MEDS ORDERED: Diatrizoate -DILUTE(CONTRAST) 300 ML BOTTLE BLADDER ONE (12:10)
[2016-09-16] MEDS ORDERED: Iohexol 180 (CONTRAST) 10 ML SDV IV ONE ×2 (12:11→13:00)
[2016-09-16] MEDS ORDERED: Lidocaine 2% PF * 5 ML VIAL ONE (12:41)
[2016-09-16] MEDS ORDERED: fentaNYL* 50 MCG/ML 2 ML VIAL (100 MCG VIAL) ONE ×2 (12:41→13:58)
[2016-09-16] MEDS ORDERED: Propofol* 10 MG/ML 20 ML BTL IV PUSH ONE (12:41)
[2016-09-16] MEDS ORDERED: Ondansetron INJ* 2 MG/ML VIAL IV PRN (12:58)
[2016-09-16] MEDS ORDERED: DiMENhydriNATE IV* 50 MG/ML VIAL IV PUSH PRN (12:58)
[2016-09-16] MEDS ORDERED: fentaNYL* 50 MCG/ML 2 ML VIAL (100 MCG VIAL) IV PRN (12:58)
--- NOTE | 2016-09-16 13:35 | RAD ---
CPT II Codes: 6045F INDICATION: Left-sided pyelonephritis TECHNIQUE: Intraoperative fluoroscopy was provided during left great nephrostogram and stent placement. FINDINGS: 3 spot films depict placement of a ureteral stent with the proximal loop in appropriate anatomic position at the conclusion of the procedure. Fluoroscopy time: 25 seconds IMPRESSION: As above.
--- NOTE | 2016-09-16 13:40 | CONS ---
CONSULTATION REPORT: DATE OF CONSULT: 09/16/16 REQUESTING PHYSICIAN: Dr. Diamond. CONSULTING SERVICE: Infectious Disease. REASON FOR CONSULT: Bacteroides bacteremia. IMPRESSION: 1. Bacteroides fragilis in 2 of 2 anaerobic bottles, taken in the setting of left- sided hydronephrosis and left flank pain, acute kidney injury and leukocytosis. Taken together, it will be most consistent with left-sided pyelonephritis and hydronephrosis with obstructing stone. There is no stone seen now on imaging. Urinalysis showed blood, leukocyte esterase. Urine culture , however, is negative as was on September 05. A typical location of Bacteroides is the bowel. She has had no other abdominal symptoms other than occasional loose stools for a couple of weeks and no diverticulitis or diverticular abscess or other bowel abscess seen on CT of the abdomen and pelvis. Bacteroides also sometimes infects chronic wounds, which I did not detect on exam today. She has no joint or spine symptoms to suggest osteomyelitis or septic arthritis. No change in mental status or nuchal rigidity to suggest meningitis. It would be unusual for Bacteroides to cause intravascular infections, I think endocarditis is unlikely. She also has no symptoms of perirectal or other skin infections. She does have bilateral lower extremity venous stasis changes and mild erythema on the left and so it is possible that she has a mild anaerobic cellulitis of the left lower extremity which is unrelated to her presenting signs and symptoms. 2. Morbid obesity. 3. Allergies to LEVAQUIN which cause seizure and SULFA, she does not remember the reaction. 4. Nephrolithiasis, history of ureteral stents and urinary tract infection. RECOMMENDATION: Agree with Zosyn which will cover usual urinary pathogens as well as Bacteroides. We will follow her left leg exam while she is here receiving antibiotics and getting her ureteral stent placed. I will repeat the blood cultures tomorrow given that Bacteroides rarely causes intravascular infection. I think it would be reasonable to change her to oral antibiotics for discharge as long as she is continuing to steadily improved. HISTORY OF PRESENT ILLNESS: This is a 70-year-old woman with obesity and recurrent kidney stones, admitted with left flank pain and fever. She was well until when she had onset of mild left flank pain. She had recently had her ureteral stents removed about [address] Osborn. Urine culture September 05 was negative. She had not been on antibiotics during the interceding couple of weeks. Because of the flank pain, she started to pay attention to her temperature and was 102, so she came to the hospital on the . She had a white blood cell count of 13,000. Her urinalysis showed blood and leukocyte esterase. She was started on ceftriaxone which she tolerated well and her white blood cell count was down and it is even down to 8 today. She has had a CT of the abdomen and pelvis that showed bilateral hydronephrosis , left greater than right, followup ultrasound done today confirmed finding. She has been followed by Dr. Osborn. He is going to take her to the OR today for left ureteral stent. Her creatinine was 3 on admission, last value in the system on August 01 was 2, it was 1.2 back in June, it was 1.0 early June. Her creatinine is down to 2 today. Blood cultures 2 of 2 anaerobic bottles with Bacteroides fragilis. She has had minimal abdominal symptoms, no abdominal pain, no abscess seen on the CT scan. She has had loose stools when urinating over the last 2 weeks. It happens every other day or so. She does have formed stools in between. She has had no skin wound. She does have bilateral venous stasis changes on both legs. She thinks may be the left leg is a little bit more swollen and red anteriorly than it has been. PAST MEDICAL HISTORY: 1. Obesity. 2. Pyelonephritis. 3. Nephrolithiasis with obstructing stones and bilateral ureteral stenting for approximately 2 years. 4. History of acute kidney injury due to ATN and now chronic kidney disease. 5. Retroperitoneal hematoma, 2017. 6. Coronary artery disease with a non-ST elevation IL during septic shock admission May 2016. 7. Recurrent pulmonary embolus, anticoagulate. 8. Hypertension. 9. Hypothyroidism. 10. Seizure disorder. 11. Hyperglycemia. 12. Hyperlipidemia. 13. Depression. 14. Legally blind. 15. Partial deafness. MEDICATIONS: 1. Tylenol. 2. Aspirin. 3. Atenolol. 4. Lipitor. 5. Levothyroxine. 6. Omeprazole. 7. Zosyn 3.375 g IV every 8 hours. 8. Oxycodone. ALLERGIES: LEVAQUIN causes seizures. SULFA, unknown reaction. LATEX and LEVOTHYROXINE. SOCIAL HISTORY: She lives in [place] with her . No travel, no sick contacts. FAMILY HISTORY: No recurrent infections or tuberculosis. REVIEW OF SYSTEMS: A full review of systems was negative except as noted above. PHYSICAL EXAM: Vital Signs: Temperature is 36.7, heart rate 70, respiratory rate 16, blood pressure 117/49, O2 sat 99% on room air. General: She is awake , not in distress. HEENT: There is no conjunctival hemorrhage. Oropharynx without lesions. Neck: The neck is supple without nuchal rigidity. Neurologic : She is oriented x3, follows all commands, moves all extremities. Sensation is intact to light touch in both feet. Lymph nodes: There is no cervical, supraclavicular, inguinal, axillary, or epitrochlear lymphadenopathy. Heart: Regular rate and rhythm without murmurs, rubs or gallops. Lungs: Clear to auscultation bilaterally. Abdomen: Soft, nontender, nondistended. There is no flank tenderness to palpation. Skin: There is no splinter hemorrhage. There are venous stasis changes both lower legs with mild erythema and warmth in the left lower extremity. Musculoskeletal: There is no spine tenderness to palpation or joint synovitis. DIAGNOSTIC STUDIES/LAB DATA: Creatinine 2.1. White blood cell count 7.9, hemoglobin 8.8, platelets 275. Please see impressions and recommendations as outlined above which I have discussed with Dr. Diamond. Thank you for asking me to see Glenroy Pavel in consultation. [id number]/[facility] #: [id number] MTDD
[2016-09-16] MEDS: oxyCODONE/Acetamin 5/325 MG* TAB PO PRN ×2 (16:43→22:15)
[2016-09-16] MEDS ORDERED: Warfarin TAB(*) 7.5 MG PO ONE (17:00)
[2016-09-17] MEDS: oxyCODONE/Acetamin 5/325 MG* TAB PO PRN (02:33)
[2016-09-17] MEDS: Omeprazole CAP* 20 MG PO SCH (05:59)
[2016-09-17] MEDS: Levothyroxine TAB* 25 MCG TAB PO SCH (05:59)
[2016-09-17] MEDS: NS 0.9% 1000 ML* 1,000 ML IV SCH (06:00)
--- NOTE | 2016-09-17 06:30 | OP ---
DATE OF OPERATION: 09/16/16 - ROOM #411 DATE OF : 47 SURGEON: Agustin Osborn MD ANESTHESIOLOGIST: Dr. Colin Radford. ANESTHESIA: General. PRE-OP DIAGNOSES: 1. Left hydroureteronephrosis. 2. Nonobstructing left renal calculi. POST-OP DIAGNOSES: 1. Left hydroureteronephrosis. 2. Nonobstructing left renal calculi. 3. Pyonephrosis. OPERATIVE PROCEDURE: 1. Cystoscopy. 2. Cystogram. 3. Left retrograde pyelography. 4. Placement of left ureteral stent (7-Swedish). INDICATION FOR PROCEDURE: Ms. Zhao is a stone former and recently had bilateral ureteroscopy and laser lithotripsy and bilateral ureteral stent placement. The CT scan had shown 2 nonobstructing left renal calculi measuring about 5 to 6 mm each located in [id number] pole infundibula. The patient had her stent removed and was doing fine. She presented to the emergency room 3 days ago with left flank pain and felt febrile. Noncontrast CT of the abdomen and pelvis showed left hydroureteronephrosis with ureter dilated all the way to the ureterovesical junction. There were again noted 2 nonobstructing left renal calculi. The patient was not febrile and had normal white count. Her serum creatinine, however, was elevated. The assumption was that the patient must have recently passed a left ureteral calculus and that would explain the changes noted. The patient was admitted and started on IV antibiotics and followed with renal ultrasound. There was a slow improvement in her serum creatinine and resolution of her left flank pain. Followup renal ultrasound this morning showed persistent left hydronephrosis. The patient had grown bacteroides in her blood. Because of the above findings and the persistent hydronephrosis, although she was clinically improved. The patient was taken to the operating to the operating room for the above procedure. PATHOLOGY AT CYSTOSCOPY: The bladder mucosa looked healthy. There were no suspicious bladder lesion seen. There were no changes to suggest cystitis. Cystogram did not show any left vesicoureteral reflux. Left retrograde pyelography showed moderate left hydronephrosis. There was purulent urine draining from her left kidney. DESCRIPTION OF PROCEDURE: After successful general anesthesia the patient was placed in the lithotomy position and was prepped and draped for a cystoscopy. Cystoscopy was performed. The bladder was inspected. A Dixon catheter was then placed. A total of 300 cc of contrast was placed in her bladder and fluoroscopy was done and there was no evidence of any reflux. The open ended catheter was then placed in the distal ureter and retrograde pyelography was performed. There was leak of the contrast all around the open ended catheter indicating a dilated ureter. The open ended catheter was then positioned inside the renal pelvis. A small amount of contrast was injected demonstrating the hydronephrosis. There was cloudy urine draining from her kidney. Because of the cloudy urine drained from the renal pelvis, no additional contrast was injected. A size 7 Swedish stent was then placed with the proximal end coiling in the renal pelvis and the distal end coiling inside the bladder. There was prompt drainage of purulent urine around and through the stent. A 16-Swedish Dixon catheter was then passed inside the bladder. The patient tolerated the procedure well and left the operating room in good condition. The plan is to observe the patient for possible sepsis. If she does fine she will be discharged home. The likely explanation of the recent episode is pyelonephritis caused by the residual small renal calculi. She will need to be brought back in for left ureteroscopy and pyeloscopy to render her completely stone free and that hopefully will prevent the recurrence of her condition. [id number]/[facility] #: [id number] ANTHONY
--- NOTE | 2016-09-17 08:45 | DCNOTE ---
Patient evaluated this morning. Feeling well this morning. No back pain, some spasms with vega in place. No fever or chills. On exam, RRR, s1 and s2 present no m/g/r, abd obese, soft, NTND, BS+, lungs CTA , B/L LE edema with skin changes L ureteral stent placed yesterday with purulent discharge, infection possibly did not reach our previous urine culture. Spoke with Dr. Weathers in regards to previous Klebsiella cultures that have been resistant to Augmentin. Decided to add Doxycycline to regimen and he will follow-up with her in the clinic. Will also need to f/u with Dr. Osborn and PCP.
[2016-09-17] MEDS ORDERED: Amoxicillin/Clavulanate TAB* 875 MG PO ONE (08:56)
[2016-09-17] MEDS ORDERED: DOXYcycline CAP(*) 100 MG PO ONE (08:56)
[2016-09-17 09:52] VITALS: BP 150/57
[2016-09-17] MEDS: Atorvastatin* 20 MG TAB PO SCH (10:10)
[2016-09-17] MEDS: Aspirin EC Low Dose* 81 MG TAB.EC PO SCH (10:11)
[2016-09-17] MEDS: Atenolol TAB* 50 MG PO SCH (10:11)
[2016-09-17] MEDS: PTO: Brimonidine P 0.1%(NF) 1 DROP BTL BOTH EYES SCH (14:26)
--- NOTE | 2016-09-17 21:28 | DS ---
CC: Dr. Rojo * DISCHARGE SUMMARY: DATE OF ADMISSION: 09/13/16 DATE OF DISCHARGE: 09/17/16 PRIMARY CARE PHYSICIAN: Dr. Rojo. PRINCIPAL DISCHARGE DIAGNOSES: 1. Pyelonephritis. 2. Severe left hydronephrosis. 3. Obstructive uropathy. 4. Acute kidney injury on chronic kidney disease. SECONDARY DIAGNOSES: 1. History of recurrent pulmonary emboli, on Coumadin. 2. Hypertension. 3. Hypothyroidism. 4. Coronary artery disease. 5. Seizure disorder. 6. Hyperglycemia. 7. Hyperlipidemia. 8. Depression. 9. Legally blind. 10. History of non-ST elevation myocardial infarction. 11. History of retroperitoneal hematoma. DISCHARGE MEDICATION REGIMEN: 1. Doxycycline 100 mg by mouth 2 times daily x2 weeks. 2. Augmentin 875 mg by mouth 2 times daily times x2 weeks. 3. Percocet 5/325 one tablet by mouth every 4 hours as needed for pain. 4. Karolina eye drops 1 drop to both eyes every 4 hours as needed for dry eyes. 5. Coumadin 7.5 mg by mouth daily. 6. Multivitamin 1 tablet by mouth daily. 7. Potassium citrate 15 mEq by mouth 2 times daily. 8. Bumex 1 mg by mouth daily. 9. Synthroid 25 mcg by mouth daily. 10. Aspirin 81 mg by mouth daily. 11. Atenolol 50 mg by mouth daily. 12. Atorvastatin 20 mg by mouth daily. 13. Brimonidine eye drops 1 drop in both eyes daily. Medications discontinued during this hospitalization, lisinopril 50 mg by mouth daily. STUDIES DONE DURING THIS HOSPITALIZATION: CT of abdomen and pelvis without contrast, impression: Mild right pelvicaliectasis without visualized obstructing stone or lesion, moderately severe left hydroureteronephrosis with associated perinephric and periureteral inflammatory stranding without visualized obstructing ureteral stone. This may reflect recent passage of an ureteral stone. Caliceal stones of the left kidney with dominant 0.6 cm stone in the inferior pole with interval increase in size compared to 08/19/16 CT. Previous bilateral ureteral stents have been removed. Abdominal x-ray, impression: Interval removal of bilateral ureteral stents. Two focus of calcifications overlying the left collecting systems could be either change in position of the stones seen on previous KUB or one or both of them could be new stones. Renal ultrasound 09/14/16, impression: Persistent bilateral left greater than right hydronephrosis, a right ureteral jet is identified, left ureteral jet is not seen. Ultrasound of the renal and bladder 09/16/16, impression: Moderate right hydronephrosis, marked left hydronephrosis, multiple calculi are noted in the left renal collecting system. Findings are not significantly changed since previous exam. Retrograde pyelogram, findings: ureteral stent with a proximal loop in the proximal anatomic position at the conclusion of the procedure. HISTORY OF PRESENT ILLNESS AND HOSPITAL SUMMARY: Please see my full history and physical by Dr.Magdalena Azar for full details. Briefly, Ms. Zhao is a 70- year-old female with a past medical history as above, who presented to the hospital with left flank pain, fever, and chills which began about a week after bilateral ureteral stent removal. As noted above, initial CT imaging show evidence of severe left-sided hydronephrosis, although there was no obstructing stone visualized. Dr. Azar spoke with Dr. Osborn, the patient's urologist, and initially attempts were made to just manage the patient conservatively. She was started on IV ceftriaxone and started on IV fluids and she was noted to have [id number] failure as well. It is felt that her symptoms may have been due to a stone that passed. For the following days, the patient's pain seemed to improve. Her leukocytosis was resolving and her renal function was slowly improving closer to her baseline. However, on repeat imaging of the kidneys with ultrasound, her left- sided severe hydronephrosis was not improving. The decision was made to take the patient to the OR and Dr. Osborn did this on 09/16/16 and placed a left- sided ureteral stent. He noted that on placement of the stent, there was purulent discharge that came through. It was noted that the patient's urine culture during this hospitalization did not grow any bacteria; however, her blood cultures did grow bacteroides. An ID consult was requested and Dr. Weathers evaluated the patient and felt that she could remain on Zosyn and could be switched to Augmentin to complete the course. He felt that it was possible that her lower extremity venous stasis changes, mild erythema could have been an entry point for bacteroides. I do not see that she had any bowel pathology. The patient tolerated the stent placement well. Her Dixon was removed and prior to discharge, I discussed with Dr. Weathers about outpatient antibiotic regimen as the last time she was here, she grew Klebsiella in the urine that was resistant to Augmentin. After discussion with Dr. Weathers as we did not have a sample of the purulent urine that came out after stent placement, she was started on doxycycline in addition to Augmentin to complete a 2-week course of both. As the patient's creatinine had not yet returned to baseline, her lisinopril was held on discharge; however, she was restarted on her Bumex. Her INR was 2.17 on the day of discharge. She was instructed to continue her home Coumadin at 7.5 mg by mouth daily and she was written to have an INR and basic metabolic panel checked on 09/20/16. The patient will be discharged home only to follow up with Dr. Weathers, Dr. Osborn, as well as with her PCP , Dr. Rojo. TIME SPENT: Total time spent on this discharge 50 minutes. This is just a summary of the hospitalization. Please see the full medical record for further details. [id number]/[facility] #: [id number] MTDD
== END 2016-09-17 14:40 | disposition home or self-care (01) | DRG 654 ==
LOC: ED 06:36 → MED 10:20
PROVIDERS: ADMIT Internal Medicine; ATTEND Hospitalist
PROC: BT1FYZZ Fluoroscopy of Left Kidney, Ureter and Bladder using Other Contrast (ICD-10-PCS; 2016-09-16)
PROC: 0T7B8DZ Dilation of Bladder with Intraluminal Device, Via Natural or Artificial Opening Endoscopic (ICD-10-PCS; principal; 2016-09-16 11:45)
DX: N13.6 Pyonephrosis (principal); E87.1 Hypo-osmolality and hyponatremia; N17.9 Acute kidney failure, unspecified; Z68.42 Body mass index [BMI] 45.0-49.9, adult; I48.91 Unspecified atrial fibrillation; E86.0 Dehydration; I12.9 Hypertensive chronic kidney disease with stage 1 through stage 4 chronic kidney disease, or unspecified chronic kidney disease; E87.5 Hyperkalemia; N39.0 Urinary tract infection, site not specified; I25.10 Atherosclerotic heart disease of native coronary artery without angina pectoris; E78.00 Pure hypercholesterolemia, unspecified; I73.9 Peripheral vascular disease, unspecified; G43.909 Migraine, unspecified, not intractable, without status migrainosus; H54.8 Legal blindness, as defined in USA; H40.9 Unspecified glaucoma; Z96.653 Presence of artificial knee joint, bilateral; Z96.611 Presence of right artificial shoulder joint; E78.5 Hyperlipidemia, unspecified; N18.9 Chronic kidney disease, unspecified; G40.909 Epilepsy, unspecified, not intractable, without status epilepticus; F32.9 Major depressive disorder, single episode, unspecified; M19.90 Unspecified osteoarthritis, unspecified site; I87.2 Venous insufficiency (chronic) (peripheral); K21.9 Gastro-esophageal reflux disease without esophagitis; E03.9 Hypothyroidism, unspecified; E66.01 Morbid (severe) obesity due to excess calories; H91.8X9 Other specified hearing loss, unspecified ear; B96.6 Bacteroides fragilis [B. fragilis] as the cause of diseases classified elsewhere; Z83.3 Family history of diabetes mellitus; Z80.6 Family history of leukemia; Z88.8 Allergy status to other drugs, medicaments and biological substances; Z88.1 Allergy status to other antibiotic agents; Z88.2 Allergy status to sulfonamides; Z91.040 Latex allergy status; Z86.711 Personal history of pulmonary embolism; Z87.442 Personal history of urinary calculi; Z97.4 Presence of external hearing-aid; Z90.710 Acquired absence of both cervix and uterus; Z98.42 Cataract extraction status, left eye; Z98.41 Cataract extraction status, right eye; Z90.49 Acquired absence of other specified parts of digestive tract; Z88.4 Allergy status to anesthetic agent; Z72.89 Other problems related to lifestyle; Z79.82 Long term (current) use of aspirin; I25.2 Old myocardial infarction; Z79.01 Long term (current) use of anticoagulants; Z87.440 Personal history of urinary (tract) infections
CPT/HCPCS: 36415; 74000; 74176; 74420; 76770; 76775; 80048; 80053; 81003; 81015; 82150; 83605; 83690; 85025; 85610; 86140; 87040; 87076; 87086; 87185; 87205; A9270-GY; C1876; J0696; J1170; J2270; J2405; J2543; J2704; J3010

== ENCOUNTER 2016-10-09 09:07 | Day surgery (SDC) | payer MEDICARE ==
--- NOTE | 2016-10-01 22:56 | HP ---
CC: Dr. Rojo * HISTORY AND PHYSICAL: DATE OF PLANNED ADMISSION AND SURGERY: 10/08/16 HISTORY OF PRESENT ILLNESS: Ms. Zhao is a 70-year-old white female who is admitted with residual left renal calculi, status post placement of left ureteral stent, recurrent episodes of pyelonephritis for cystoscopy, left ureteroscopy, and laser lithotripsy and left ureteral stent exchange. This is one of multiple admissions of this 70-year-old white female who had bilateral renal calculi, recurrent episodes of urinary tract infections, pyelonephritis due to her stone disease. After multiple procedures, she is stone-free in the right kidney and she had residual 2 nonobstructing left renal calculi measuring about 6 mm each after her last procedure two months ago. Following removal of the left ureteral stent, she did fine for about 10 days but then presented to the emergency room with fever and chills. She was noted to have a positive urine analysis for infection, left hydroureteronephrosis with the obstruction at the level of the ureterovesical junction. There were again noted two non-obstructing 5 to 6 mm calculi in the left kidney. No calculi were seen in the ureter. She was treated as a case of urinary tract infection, but then she grew bacteroides in her blood. After receiving IV antibiotics, she was taken to the operating room. She had a cystogram to check for possible vesicoureteral reflux and no reflux was noted in either ureter. She then had a left retrograde pyelography which showed a dilated ureter and no evidence of any obstruction. She had placement of a left ureteral stent draining purulent urine from her left kidney. She did fine after the procedure. She is doing well now. I think the recurrent episodes of infections are caused by infected stones in her left kidney and she has to be rendered totally stone-free to prevent future episodes of urinary infections. Patient is morbidly obese and it is difficult to visualize the stone with a KUB. She is also on anticoagulation because of a recent DVT and she cannot undergo shockwave lithotripsy. Therefore, patient now is admitted for cystoscopy and left ureteroscopy. The lower pole calyces will be inspected and the calculi would be treated with a laser and fragments removed with the stent exchange. There have not been any changes in her medications and no changes in her medical condition since her recent admission. There has not been any change in her physical exam. She had a catheterized urine culture done in the office. She will be started on antibiotics depending upon the culture results. The procedure will be performed while on full anticoagulation. I discussed the above plans with the patient and her and all their questions were answered. [id number]/[facility] #: [id number] ANTHONY
[~2016-10-09 09:07] MED LIST changes: +Buffered Lidocaine 0.9% SYRIN* 5 ML/SYR SYRINGE INTRADERM ONE; +Buffered Lidocaine 0.9% SYRIN* 5 ML/SYR SYRINGE ONE; -Buffered Lidocaine 1% SYRIN* 3 ML/SYR SYRINGE INTRADERM ONE; -Iohexol 180 (CONTRAST) 10 ML SDV IV ONE; -Lidocaine 2% PF * 5 ML VIAL ONE; -Ondansetron INJ* 2 MG/ML VIAL IV PRN; -Propofol* 10 MG/ML 20 ML BTL IV PUSH ONE; -Sodium Citrate/Citric Acid* 15 ML UDC ONE; -Succinylcholine* 20 MG/ML 10 ML VIAL ONE; +ZOSYN 3.375 GM x ONE DOSE over 30 miuntes IVPB; -cefTRIAXone(*) 2 GM ADDV.VIAL IVPB ONE; -fentaNYL* 50 MCG/ML 2 ML VIAL (100 MCG VIAL) IV PRN; -fentaNYL* 50 MCG/ML 2 ML VIAL (100 MCG VIAL) ONE; -oxyCODONE/Acetamin 5/325 MG* TAB ONE
[2016-10-09] MEDS ORDERED: Iohexol 180 (CONTRAST) 10 ML SDV IV ONE (11:20)
[2016-10-09] MEDS ORDERED: Midazolam* 1 MG/ML 5 ML VIAL (5 MG) ONE (11:46)
[2016-10-09] MEDS ORDERED: fentaNYL* 50 MCG/ML 2 ML VIAL (100 MCG VIAL) ONE ×2 (11:57→13:49)
[2016-10-09] MEDS ORDERED: Propofol* 10 MG/ML 20 ML BTL IV PUSH ONE (11:57)
[2016-10-09] MEDS ORDERED: Ondansetron INJ* 2 MG/ML VIAL IV PRN (12:36)
[2016-10-09] MEDS ORDERED: DiMENhydriNATE IV* 50 MG/ML VIAL IV PUSH PRN (12:36)
[2016-10-09] MEDS: fentaNYL* 50 MCG/ML 2 ML VIAL (100 MCG VIAL) IV PRN ×5 (13:50→13:58)
--- NOTE | 2016-10-09 13:53 | RAD ---
INDICATION: Left stent placement COMPARISON: None FINDINGS: 20 seconds of fluoroscopy were provided for the urology department. Fluoroscopic spot imaging of the abdomen were obtained for operative control and show left ureteral stent placement . CPT II Codes: 6045F (fluoro time doc)
[2016-10-09] MEDS ORDERED: HYDROmorphone* 1 MG/ML 1 ML SYR ONE (14:00)
[2016-10-09] MEDS: HYDROmorphone* 1 MG/ML 1 ML SYR IV PRN ×3 (14:01→14:10)
[2016-10-09] MEDS ORDERED: oxyCODONE/Acetamin 5/325 MG* TAB ONE (15:26)
--- NOTE | 2016-10-09 15:42 | OP ---
DATE OF OPERATION: 10/09/16 - MERGED WITH [facility] DATE OF : 47 SURGEON: Agustin Osborn MD ANESTHESIOLOGIST: Mayo Chen MD ANESTHESIA: General. PRE-OP DIAGNOSES: 1. Left hydronephrosis. 2. Left renal calculi. 3. Status post placement of left ureteral stent. POST-OP DIAGNOSES: 1. Left hydronephrosis. 2. Left renal calculi. 3. Status post placement of left ureteral stent. OPERATIVE PROCEDURE: 1. Cystoscopy. 2. Dilation of left ureteral stricture. 3. Left ureteroscopy and pyeloscopy. 4. Extraction of multiple fragments of left renal calculi. 5. Left retrograde pyelography and placement of left ureteral stent (8-Russian). INDICATIONS: Ms. Zhao is a 70-year-old white female who has recurrent episodes of renal colics and some of those episodes were associated with sepsis. She developed a left retroperitoneal hematoma earlier this year and at that time , she had a left ureteral stent in place. She was admitted about 4 weeks ago with left renal colic and was found to have a left hydronephrosis, nonobstructing left renal calculi, and dilated left ureter. At that time, it was thought that the patient had passed the stone and hydronephrosis was transient. She, however, became septic and required urgent placement of a left ureteral stent which showed pyonephrosis. CT scan had shown residual left renal calculi measuring 4 mm and 6 mm in size, both located in the lower pole calyces. The patient is now admitted for extraction of the above stones. PATHOLOGY AT CYSTOSCOPY: The bladder mucosa looked normal. The distal limb of the stent was coming from the left orifice. Attempt at introducing the access sheath for the flexible ureteroscopy showed there was resistance to the introduction of the sheath at the level of the midureter. This had to be dilated to successfully introduce the 10-12 Russian access sheath. Left pyeloscopy showed multiple stone fragments varying in size between 2 to 3 mm. They were mostly located in the lower pole calyces. Left retrograde pyelography showed moderate left hydronephrosis. DESCRIPTION OF PROCEDURE: After successful general anesthesia, the patient was placed in the lithotomy position and was prepped and draped for cystoscopy. Cystoscopy was performed. The left ureteral stent was removed over a guidewire. A 10-12 Russian access sheath was then fed on top of the guidewire. There was resistance in the distal third to the mid ureter to the introduction of the access sheath. This was then dilated and the access sheath was positioned in the proximal ureter. The flexible ureteroscope was then introduced and passed inside the renal pelvis. The calyces were inspected serially starting in the upper pole and then doing to the mid to the lower pole. The stone fragments were noted. They were extracted using the tipless basket. The total number of the stone fragments extracted would be equivalent to the total stone burden noted on the CT scan. Unfortunately, the fluoroscopy did not show any renal calculi. For that reason, I cannot be sure that she is totally stone free in the left kidney. After the extraction of the visualized stone fragments, the ureteroscope was removed. The access sheath was removed over a guidewire. Retrograde pyelography was then performed. A size 8-Russian stent was then positioned with the proximal end coiling in the renal pelvis and the distal end coiling inside the bladder. There was good drainage of contrast from the kidney and no extravasation. The patient tolerated the procedure well and left the operating room in good condition. The concern is that the patient developed ureteral stricture secondary to the left retroperitoneal hematoma and that would account for the episode of left hydronephrosis that she had on her recent admission. The plan is to keep the stent in place for at least the next 3 weeks. It would be removed under antibiotic coverage and the patient will need to be followed closely for recurrence of the hydronephrosis. [id number]/[facility] #: [id number] ANTHONY
[2016-10-09 15:51] VITALS: BP 130/60
== END 2016-10-09 15:52 | disposition home or self-care (01) ==
LOC: OR 09:07
PROVIDERS: ATTEND Urology
DX: N13.2 Hydronephrosis with renal and ureteral calculous obstruction (principal); Z96.0 Presence of urogenital implants; N13.1 Hydronephrosis with ureteral stricture, not elsewhere classified; I10 Essential (primary) hypertension; E66.01 Morbid (severe) obesity due to excess calories; E11.9 Type 2 diabetes mellitus without complications; Z79.01 Long term (current) use of anticoagulants
CPT/HCPCS: 74420; 82365; 88300; A9270-GY; C1876; J1170; J2250; J2543; J2704; J3010

== ENCOUNTER 2016-10-18 22:50 | Inpatient (IN) | payer MEDICARE ==
[2016-10-18 23:30] LABS: Hematocrit 36 % (35-47); Hemoglobin 11.3 g/dl (12.0-16.0); Mean Corpuscular HGB Conc 31 g/dl (31-36); Mean Corpuscular Hemoglobin 28 pg (27-31); Mean Corpuscular Volume 90 fL (80-97); Mean Platelet Volume 8 um3 (7.4-10.4); Red Cell Distribution Width 19 % (10.5-15); White Blood Count 18.7 10^3/ul (3.5-10.8)
[2016-10-18] MEDS ORDERED: Albuterol/Ipratropium NEB.SOL* Albuterol 2.5 MG/Ipratropium 0.5 MG 3 ML INH ONE (23:42)
[2016-10-18] MEDS ORDERED: Morphine INJ* 2 MG/ML 1 ML SYRINGE IV ONE (23:42)
[2016-10-18 23:45] LABS: Albumin 3.7 g/dL (3.2-5.2); BUN/Creatinine Ratio 22.1 (8-20); Calcium 9.7 mg/dL (8.6-10.3); EGFR African American 47.9 (>60); EGFR Non-African American 37.3 (>60); Globulin 4.1 g/dL (2-4); Potassium 3.9 mmol/L (3.5-5.0); Total Bilirubin 0.3 mg/dL (0.2-1.0); Total Protein 7.8 g/dL (6.4-8.9)
[2016-10-18] MEDS ORDERED: Ondansetron INJ* 2 MG/ML VIAL IV ONE (23:47)
[2016-10-19] MEDS ORDERED: cefTRIAXone(*) 1 GM in NS 0.9% 50 ML* 50 ML IVPB ONE (00:11)
[2016-10-19] MEDS ORDERED: Azithromycin IV(*) 500 MG in NS 0.9% 250 ML* 250 ML IVPB ONE (00:11)
--- NOTE | 2016-10-19 00:30 | ED ---
Scott Maki Salem, scribed for Didier Bae MD on 10/18/16 at 2313 . Shortness of Breath - HPI Summary HPI Summary: Patient is a 70 y/o F who presents to the ED with SOB since 1800 today. She reports a cough, chills, and CP. Pt denies any symptoms earlier today and states that she was watching TV when symptom suddenly onset. She also reports a recent yeast infection and states she was recently started on medication. - History of Current Complaint Chief Complaint: EDShortnessOfBreath Time Seen by Provider: 10/18/16 23:00 Hx Obtained From: Patient, Family/Senior Chemist Onset/Duration: Sudden Onset, Lasting Hours, Still Present Timing: Constant Current Severity: Moderate Dyspnea At: Rest Aggrevating Factors: Nothing Alleviating Factors: Nothing Associated Signs & Symptoms: Cough (Nonproductive), Chills Related History: Obesity - Allergy/Home Medications Allergies/Adverse Reactions: Allergies Allergy/AdvReac Type Severity Reaction Status Date / Time Levofloxacin [From Levaquin] Allergy Severe Anaphylatic Verified 10/18/16 23:03 Shock Latex Allergy Intermediate ITCHY Verified 10/18/16 23:03 PIMPLE LIKE RASH Sulfa Drugs Allergy Intermediate Hives Verified 10/18/16 23:03 Levothyroxine Allergy Mild Rash And Verified 10/18/16 23:03 Itching PMH/Surg Hx/FS Hx/Imm Hx Endocrine/Hematology History: Reports: Hx Diabetes - borderline DM, Hx Thyroid Disease - hypothyroidism Cardiovascular History: Reports: Hx Coronary Artery Disease, Hx Hypercholesterolemia, Hx Hypertension, Hx Peripheral Vascular Disease, Other Cardiovascular Problems/Disorders - cardiac cath Respiratory History: Reports: Hx Pulmonary Embolism - POST OP AFTER SHOULDER REPLACEMENT 2012, 2014 Denies: Hx Asthma, Hx Chronic Obstructive Pulmonary Disease (COPD) GI History: Denies: Hx Ulcer, Other GI Disorders History: Reports: Hx Kidney Infection, Hx Kidney Stones - left, Hx Renal Disease - BILAT STENT EXCHANGE 07/31/16, Other Problems/Disorders - Kidney stones July 2011 Musculoskeletal History: Reports: Hx Arthritis, Other Musculoskeletal History - Bilateral knee replacements, R shoulder replacement, fractured R elbow Sensory History: Reports: Hx Cataracts, Hx Contacts or Glasses, Hx Glaucoma, Hx Legally Blind, Hx Vision Problem - Pt is legally blind, Hx Hearing Aid - bilat, Hx Hearing Problem, Other Sensory Impairments Opthamlomology History: Reports: Hx Cataracts, Hx Contacts or Glasses, Hx Glaucoma, Hx Legally Blind, Hx Vision Problem - Pt is legally blind, Other Sensory Impairments Neurological History: Reports: Hx Migraine - Hx of none recently, Hx Seizures - Hx of, none recently, Other Neuro Impairments/Disorders - Hx seizures, none recently Psychiatric History: Denies: Hx Anxiety, Hx Depression - Cancer History Hx Chemotherapy: No Hx Radiation Therapy: No - Surgical History Surgery Procedure, Year, and Place: Hysterectomy September 2014, 1970 R eye cataract removed, 1989 L eye cataract removed, bilateral knee replacements, R shoulder replacement, 2011 cholecystectomy, plate/screws in R elbow, kidney stone treatment x 3 august 09 3 kidney stones remover and litho. done on others bilaterly. Hx Anesthesia Reactions: Yes - GFDS Infectious Disease History: Denies: Hx Hepatitis, Hx Human Immunodeficiency Virus (HIV), Traveled Outside the [place] in Last 30 Days Comment Only: History Other Infectious Disease - kidney infection - Family History Known Family History: Positive: Cardiac Disease, Hypertension - Social History Alcohol Use: Rare Alcohol Amount: 3-4 PER YEAR Substance Use Type: Reports: None Hx Tobacco Use: No Smoking Status (MU): Never Smoked Tobacco Have You Smoked in the Last Year: No Review of Systems Positive: Chills Positive: Chest Pain Positive: Shortness Of Breath, Cough All Other Systems Reviewed And Are Negative: Yes Physical Exam Triage Information Reviewed: Yes Vital Signs On Initial Exam: Initial Vitals Temp Pulse BP Pulse Ox 98.5 F 104 116/70 100 10/18/16 22:50 10/18/16 22:50 10/18/16 22:50 10/18/16 22:50 Vital Signs Reviewed: Yes Appearance: Positive: Ill-Appearing - moderate sob Skin: Positive: Warm Head/Face: Positive: Normal Head/Face Inspection Eyes: Positive: ZANDER ENT: Positive: Hearing grossly normal Neck: Positive: Supple Respiratory/Lung Sounds: Positive: Decreased Breath Sounds, Rhonchi - coarse basilar Cardiovascular: Positive: Tachycardia Abdomen Description: Positive: Nontender, Soft Bowel Sounds: Positive: Present Musculoskeletal: Positive: Strength/ROM Intact Neurological: Positive: Alert, Oriented to Person Place, Time Diagnostics - Vital Signs Vital Signs Temp Pulse BP Pulse Ox 10/18/16 22:50 98.5 F 104 116/70 100 - Laboratory Lab Results: Lab Results 10/18/16 10/18/16 10/18/16 Range/Units 23:15 23:15 23:15 WBC 18.7 H (3.5-10.8) 10^3/ul RBC 4.00 (4.0-5.4) 10^6/ul Hgb 11.3 L (12.0-16.0) g/dl Hct 36 (35-47) % MCV 90 (80-97) fL MCH 28 (27-31) pg MCHC 31 (31-36) g/dl RDW 19 H (10.5-15) % Plt Count 323 (150-450) 10^3/ul MPV 8 (7.4-10.4) um3 Neut % (Auto) 91.3 H (38-83) % Lymph % (Auto) 5.4 L (25-47) % [place] % (Auto) 2.0 (1-9) % Eos % (Auto) 0.7 (0-6) % Baso % (Auto) 0.6 (0-2) % Absolute Neuts (auto) 17.1 H (1.5-7.7) 10^3/ul Absolute Lymphs (auto) 1.0 (1.0-4.8) 10^3/ul Absolute Monos (auto) 0.4 (0-0.8) 10^3/ul Absolute Eos (auto) 0.1 (0-0.6) 10^3/ul Absolute Basos (auto) 0.1 (0-0.2) 10^3/ul Absolute Nucleated RBC 0 10^3/ul Nucleated RBC % 0 INR (Anticoag Therapy) 1.10 (0.89-1.11) D-Dimer, Quantitative 204 (Less Than 230) ng/mL Sodium 140 (133-145) mmol/L Potassium 3.9 (3.5-5.0) mmol/L Chloride 105 (101-111) mmol/L Carbon Dioxide 26 (22-32) mmol/L Anion Gap 9 (2-11) mmol/L BUN 31 H (6-24) mg/dL Creatinine 1.40 H (0.51-0.95) mg/dL Est GFR ( Amer) 47.9 (>60) Est GFR (Non-Af Amer) 37.3 (>60) BUN/Creatinine Ratio 22.1 H (8-20) Glucose 173 H (70-100) mg/dL Lactic Acid (0.5-2.0) mmol/L Calcium 9.7 (8.6-10.3) mg/dL Total Bilirubin 0.30 (0.2-1.0) mg/dL AST 14 (13-39) U/L ALT 15 (7-52) U/L Alkaline Phosphatase 58 (34-104) U/L Total Creatine Kinase 26 (10-223) U/L Troponin I 0.00 (<0.04) ng/mL B-Natriuretic Peptide ( - 100) pg/mL Total Protein 7.8 (6.4-8.9) g/dL Albumin 3.7 (3.2-5.2) g/dL Globulin 4.1 H (2-4) g/dL Albumin/Globulin Ratio 0.9 L (1-3) 10/18/16 10/18/16 Range/Units 23:15 23:15 WBC (3.5-10.8) 10^3/ul RBC (4.0-5.4) 10^6/ul Hgb (12.0-16.0) g/dl Hct (35-47) % MCV (80-97) fL MCH (27-31) pg MCHC (31-36) g/dl RDW (10.5-15) % Plt Count (150-450) 10^3/ul MPV (7.4-10.4) um3 Neut % (Auto) (38-83) % Lymph % (Auto) (25-47) % [place] % (Auto) (1-9) % Eos % (Auto) (0-6) % Baso % (Auto) (0-2) % Absolute Neuts (auto) (1.5-7.7) 10^3/ul Absolute Lymphs (auto) (1.0-4.8) 10^3/ul Absolute Monos (auto) (0-0.8) 10^3/ul Absolute Eos (auto) (0-0.6) 10^3/ul Absolute Basos (auto) (0-0.2) 10^3/ul Absolute Nucleated RBC 10^3/ul Nucleated RBC % INR (Anticoag Therapy) (0.89-1.11) D-Dimer, Quantitative (Less Than 230) ng/mL Sodium (133-145) mmol/L Potassium (3.5-5.0) mmol/L Chloride (101-111) mmol/L Carbon Dioxide (22-32) mmol/L Anion Gap (2-11) mmol/L BUN (6-24) mg/dL Creatinine (0.51-0.95) mg/dL Est GFR ( Amer) (>60) Est GFR (Non-Af Amer) (>60) BUN/Creatinine Ratio (8-20) Glucose (70-100) mg/dL Lactic Acid 1.8 (0.5-2.0) mmol/L Calcium (8.6-10.3) mg/dL Total Bilirubin (0.2-1.0) mg/dL AST (13-39) U/L ALT (7-52) U/L Alkaline Phosphatase (34-104) U/L Total Creatine Kinase (10-223) U/L Troponin I (<0.04) ng/mL B-Natriuretic Peptide 96 ( - 100) pg/mL Total Protein (6.4-8.9) g/dL Albumin (3.2-5.2) g/dL Globulin (2-4) g/dL Albumin/Globulin Ratio (1-3) Result Diagrams: 10/18/16 23:15 10/18/16 23:15 Lab Statement: Any lab studies that have been ordered have been reviewed, and results considered in the medical decision making process. - Radiology CXR Radiology Interpretation Completed By: ED Physician - Right lower lobe infiltrate. - EKG 2308 EKG Interpretation: Sinus tachycardia @ 105 bpm. Re-Evaluation - Re-Evaluation First Eval Re-Evaluation Time: 00:13 Change: Improved - results d/w pt, case d/w hospitalist Comment: She's improved after treatment. Course/Dx - Course Course Of Treatment: 70 y/o F presents with SOB since 1800 today. She reports a cough, chills, and CP. She also reports a recent yeast infection and states she was recently started on medication. Pt received Duoneb, Morphine, and Zofran in the ED course. EKG shows Sinus tachycardia @ 105 bpm. CXR shows right lower lobe infiltrate. Discussed case with Dr. Robles. - Diagnoses Provider Diagnoses: Pneumonia - Physician Notifications Discussed Care of Patient With: Mc Robles Time Discussed With Above Provider: 00:07 Instructed by Provider To: Admit As Inpatient Admit/Transition Orders Completed By ED Provider: Yes Discharge - Discharge Plan Condition: Fair Disposition: ADMITTED TO [facility] The documentation as recorded by the Scott whyte Salem accurately reflects the service I personally performed and the decisions made by me, Didier Bae MD.
[2016-10-19] MEDS ORDERED: Enoxaparin(*) 40 MG/0.4 ML SYR SUBCUT SCH (01:00)
[2016-10-19] MEDS ORDERED: NS 0.9% 1000 ML* 4,000 ML IV ONE (01:32)
[2016-10-19] MEDS: Morphine INJ* 4 MG/ML 1 ML SYRINGE IV PRN ×3 (03:47→10:16)
[2016-10-19] MEDS: Enoxaparin(*) 150 MG/ML 1 ML SYRINGE SUBCUT SCH ×2 (03:54→16:50)
[2016-10-19] MEDS: Warfarin TAB(*) 10 MG PO SCH ×2 (03:56→16:50)
[2016-10-19] MEDS: NS 0.9% 1000 ML* 1,000 ML IV SCH ×3 (06:04→21:45)
[2016-10-19] MEDS: Levothyroxine TAB* 25 MCG TAB PO SCH (06:06)
[2016-10-19] MEDS: Acetaminophen TAB* 325 MG PO PRN ×4 (06:17→21:03)
[2016-10-19 07:04] LABS: Urine Bacteria Absent (Absent); Urine Bilirubin Negative (Negative); Urine Glucose Negative (Negative); Urine Nitrite Negative (Negative)
--- NOTE | 2016-10-19 08:33 | RAD ---
Indication: Shortness of breath. 2 views of the chest are reviewed and compared to previous exam dated June 10, 2016. No mediastinal shift is noted. There is mild cardiomegaly. Lung deleon demonstrate interstitial edema suggestive of vascular congestion. No evidence of alveolar consolidation is noted. Right humeral head prosthesis is noted. IMPRESSION: Mild cardiomegaly. There may be some interstitial edema consistent with vascular congestion noted. No definite pneumonia is noted.
[2016-10-19] MEDS ORDERED: POTASSIUM CITRATE PO SCH (09:00)
[2016-10-19] MEDS ORDERED: Brimonidine P 0.1%(NF) 1 DROP BTL BOTH EYES SCH (09:00)
[2016-10-19] MEDS: Atorvastatin* 20 MG TAB PO SCH (09:01)
[2016-10-19] MEDS: Aspirin EC Low Dose* 81 MG TAB.EC PO SCH (09:01)
[2016-10-19] MEDS: [UNRECOGNIZED DRUG - OTHER] PO SCH ×3 (10:40→21:58)
[2016-10-19] MEDS: POTASSIUM CITRATE PO SCH ×3 (10:40→21:58)
--- NOTE | 2016-10-19 12:06 | PN ---
Subjective Date of Service: 10/19/16 Interval History: Patient seen and evaluated at the bedside. She is A+O x3 laying in bed resting. She awakes easily to voice, at bedside. She reports she feels better than on admission but continues to feel unwell with a ROBB, weakness, poor appetite, nausea, cough. Denies SOB or cp. No fever or chills but does report chills yesterday with "intense shaking". No vomiting, no abdominal pain, no diarrhea. Primo orthopnea, reports LE edema at her baseline. She reports dysuria yesterday which has since resolved. No flank pain. Denies back/neck pain. Was seen by OBGYN yesterday and dx with a vaginal and skin yeast infection which she started tx for yesterday Objective Active Medications: Acetaminophen (Tylenol Tab*) 650 mg PO Q4H PRN PRN Reason: FEVER/HEADACHE Last Admin: 10/19/16 10:11 Dose: 650 mg Aspirin (Aspirin Ec Low Dose*) 81 mg PO [facility] Last Admin: 10/19/16 09:01 Dose: 81 mg Atorvastatin Calcium (Lipitor*) 20 mg PO [facility] Last Admin: 10/19/16 09:01 Dose: 20 mg Brimonidine Tartrate (Alphagan P 0.1% (Nf)) 1 drop BOTH EYES BID [facility] Enoxaparin Sodium (Lovenox(*)) 120 mg SUBCUT Q12H [facility] Last Admin: 10/19/16 03:54 Dose: 120 mg Ceftriaxone Sodium 1,000 mg/ (Sodium Chloride) 50 mls @ 200 mls/hr IVPB Q24H [facility] Azithromycin 500 mg/ Sodium (Chloride) 250 mls @ 250 mls/hr IVPB Q24H [facility] Sodium Chloride (Ns 0.9% 1000 Ml*) 1,000 mls @ 1,000 mls/hr IV PER RATE [facility] Stop: 10/20/16 06:59 Last Admin: 10/19/16 06:58 Dose: 1,000 mls/hr Levothyroxine Sodium (Synthroid Tab*) 25 mcg PO DAILY@0600 [facility] Last Admin: 10/19/16 06:06 Dose: 25 mcg Morphine Sulfate (Morphine Inj (Syringe)*) 3 mg IV Q3H PRN PRN Reason: PAIN Last Admin: 10/19/16 10:16 Dose: 3 mg Pto: Potassium Citrate (Alkalinizer [Urocit-K 15] 15 Meq 15 meq PO TID JN Last Admin: 10/19/16 10:40 Dose: 15 meq Sodium Chloride (Hypertonic) (Karolina 128 Opth 2% Ale*) 1 drop LEFT EYE Q4H PRN PRN Reason: DRY EYE Warfarin Sodium (Coumadin Tab(*)) 10 mg PO DAILY@1700 JN PRN Reason: Protocol Last Admin: 10/19/16 03:56 Dose: 10 mg Vital Signs 10/19/16 10/19/16 10/19/16 01:00 01:07 01:19 Temperature Pulse Rate 107 108 Respiratory 22 25 Rate Blood Pressure 150/58 (mmHg) O2 Sat by Pulse 99 98 Oximetry 10/19/16 10/19/16 10/19/16 01:30 02:00 02:30 Temperature Pulse Rate 108 111 109 Respiratory 28 20 27 Rate Blood Pressure 149/61 156/64 151/59 (mmHg) O2 Sat by Pulse 95 97 94 Oximetry 10/19/16 10/19/16 10/19/16 02:45 03:02 03:11 Temperature 100.0 F 100.2 F Pulse Rate 109 114 Respiratory 30 24 24 Rate Blood Pressure 151/59 158/62 (mmHg) O2 Sat by Pulse 100 Oximetry 10/19/16 10/19/16 10/19/16 03:47 04:47 07:18 Temperature Pulse Rate Respiratory 24 24 24 Rate Blood Pressure (mmHg) O2 Sat by Pulse Oximetry 10/19/16 10/19/16 10/19/16 07:28 07:35 07:45 Temperature 99.3 F Pulse Rate 117 Respiratory 18 20 Rate Blood Pressure 113/48 138/58 (mmHg) O2 Sat by Pulse 91 Oximetry 10/19/16 10/19/16 08:18 10:16 Temperature Pulse Rate Respiratory 20 18 Rate Blood Pressure (mmHg) O2 Sat by Pulse Oximetry Result Diagrams: 10/19/16 13:32 10/19/16 13:32 Additional Lab and Data: Lab Results 10/18/16 10/18/16 10/18/16 Range/Units 23:15 23:15 23:15 WBC 18.7 H (3.5-10.8) 10^3/ul RBC 4.00 (4.0-5.4) 10^6/ul Hgb 11.3 L (12.0-16.0) g/dl Hct 36 (35-47) % MCV 90 (80-97) fL MCH 28 (27-31) pg MCHC 31 (31-36) g/dl RDW 19 H (10.5-15) % Plt Count 323 (150-450) 10^3/ul MPV 8 (7.4-10.4) um3 Neut % (Auto) 91.3 H (38-83) % Lymph % (Auto) 5.4 L (25-47) % Jewell % (Auto) 2.0 (1-9) % Eos % (Auto) 0.7 (0-6) % Baso % (Auto) 0.6 (0-2) % Absolute Neuts (auto) 17.1 H (1.5-7.7) 10^3/ul Absolute Lymphs (auto) 1.0 (1.0-4.8) 10^3/ul Absolute Monos (auto) 0.4 (0-0.8) 10^3/ul Absolute Eos (auto) 0.1 (0-0.6) 10^3/ul Absolute Basos (auto) 0.1 (0-0.2) 10^3/ul Absolute Nucleated RBC 0 10^3/ul Nucleated RBC % 0 INR (Anticoag Therapy) 1.10 (0.89-1.11) D-Dimer, Quantitative 204 (Less Than 230) ng/mL Sodium 140 (133-145) mmol/L Potassium 3.9 (3.5-5.0) mmol/L Chloride 105 (101-111) mmol/L Carbon Dioxide 26 (22-32) mmol/L Anion Gap 9 (2-11) mmol/L BUN 31 H (6-24) mg/dL Creatinine 1.40 H (0.51-0.95) mg/dL Est GFR ( Amer) 47.9 (>60) Est GFR (Non-Af Amer) 37.3 (>60) BUN/Creatinine Ratio 22.1 H (8-20) Glucose 173 H (70-100) mg/dL Lactic Acid (0.5-2.0) mmol/L Calcium 9.7 (8.6-10.3) mg/dL Total Bilirubin 0.30 (0.2-1.0) mg/dL AST 14 (13-39) U/L ALT 15 (7-52) U/L Alkaline Phosphatase 58 (34-104) U/L Total Creatine Kinase 26 (10-223) U/L Troponin I 0.00 (<0.04) ng/mL B-Natriuretic Peptide ( - 100) pg/mL Total Protein 7.8 (6.4-8.9) g/dL Albumin 3.7 (3.2-5.2) g/dL Globulin 4.1 H (2-4) g/dL Albumin/Globulin Ratio 0.9 L (1-3) 10/18/16 10/18/16 Range/Units 23:15 23:15 WBC (3.5-10.8) 10^3/ul RBC (4.0-5.4) 10^6/ul Hgb (12.0-16.0) g/dl Hct (35-47) % MCV (80-97) fL MCH (27-31) pg MCHC (31-36) g/dl RDW (10.5-15) % Plt Count (150-450) 10^3/ul MPV (7.4-10.4) um3 Neut % (Auto) (38-83) % Lymph % (Auto) (25-47) % Jewell % (Auto) (1-9) % Eos % (Auto) (0-6) % Baso % (Auto) (0-2) % Absolute Neuts (auto) (1.5-7.7) 10^3/ul Absolute Lymphs (auto) (1.0-4.8) 10^3/ul Absolute Monos (auto) (0-0.8) 10^3/ul Absolute Eos (auto) (0-0.6) 10^3/ul Absolute Basos (auto) (0-0.2) 10^3/ul Absolute Nucleated RBC 10^3/ul Nucleated RBC % INR (Anticoag Therapy) (0.89-1.11) D-Dimer, Quantitative (Less Than 230) ng/mL Sodium (133-145) mmol/L Potassium (3.5-5.0) mmol/L Chloride (101-111) mmol/L Carbon Dioxide (22-32) mmol/L Anion Gap (2-11) mmol/L BUN (6-24) mg/dL Creatinine (0.51-0.95) mg/dL Est GFR ( Amer) (>60) Est GFR (Non-Af Amer) (>60) BUN/Creatinine Ratio (8-20) Glucose (70-100) mg/dL Lactic Acid 1.8 (0.5-2.0) mmol/L Calcium (8.6-10.3) mg/dL Total Bilirubin (0.2-1.0) mg/dL AST (13-39) U/L ALT (7-52) U/L Alkaline Phosphatase (34-104) U/L Total Creatine Kinase (10-223) U/L Troponin I (<0.04) ng/mL B-Natriuretic Peptide 96 ( - 100) pg/mL Total Protein (6.4-8.9) g/dL Albumin (3.2-5.2) g/dL Globulin (2-4) g/dL Albumin/Globulin Ratio (1-3) Assess/Plan/Problems-Billing Assessment: Mrs. 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 - Patient Problems (1) Sepsis Comment: As evidence of tachycardia, hypoxia, leukocytosis on admission. unlear etilogy. - urinalysis appears abnormal but is always noted to be abnormal, with last urine cx growing no bacteria. Recent urethral stent place early October. No current urinary symptoms, no CVA tenderness. - hypoxia and cough. No clear pneumonia on chest xray. Placed on 2 L NC on my assessment as I found her to be 88% on RA. No hx of lung disease/tobacco abuse. Goal to maintain O2 sat >94% - LE wounds? Chronic venous stasis changes to LE, possible cellulitis. Pt has received a total 5 L NS since admission. Lactic acid 1.8 on admisison. Plan to recheck labs. Plan for CT chest/abd/pelvis with oral contrast. Continue ceftriaxone, azithro. blood cx pending. (2) History of pulmonary embolus (PE) Comment: INR subtherapeutic on admission but low suspicion of PE with DDIMER 204. Coumadin was increased to 10 mg daily and she was started on lovenox Q12, follow INR. (3) Diabetes Comment: Hg A1C 6.5% in 05/2016. Not on home medications. Plan to start FSBG ACHS due to noted hyperglycemia, will start covergae if consistently high Recheck HbA1C (4) HTN (hypertension) Comment: - hold atenolol in the setting of sepsis, currently normotensive (5) Hypothyroidism Comment: Continue synthroid. (allergy to levothyroxine) (6) Seizure disorder Comment: Very distant hx of seizures, not currently an issue. Reports being taken off Topamax due to contribution to renal stones - (7) DVT prophylaxis Comment: lovenox bridge to Coumadin (8) Full code status Status and Disposition: inpatient with Sepsis. Home when medically stable
[2016-10-19 13:43] LABS: Add Diff/Slide Review? Slide Review Added; Comments Flag Yes; Hematocrit 34 % (35-47); Hemoglobin 10.6 g/dl (12.0-16.0); Mean Corpuscular HGB Conc 31 g/dl (31-36); Mean Corpuscular Hemoglobin 28 pg (27-31); Mean Corpuscular Volume 90 fL (80-97); Mean Platelet Volume 9 um3 (7.4-10.4); Red Blood Count 3.79 10^6/ul (4.0-5.4); Red Cell Distribution Width 19 % (10.5-15); White Blood Count 30.5 10^3/ul (3.5-10.8)
[2016-10-19 14:01] LABS: Calcium 8.6 mg/dL (8.6-10.3); EGFR African American 41.7 (>60); EGFR Non-African American 32.4 (>60); Magnesium 1.8 mg/dL (1.9-2.7); Potassium 4.7 mmol/L (3.5-5.0)
[2016-10-19 14:09] LABS: Hypochromasia 1+; Immature Granulocytes 10 % (0-9); Neutrophil % 87 % (38-83)
[2016-10-19] MEDS: SODIUM CHLORIDE 2% LEFT EYE PRN (14:45)
[2016-10-19] MEDS ORDERED: NS 0.9% 1000 ML* 1,000 ML IV SCH (14:45)
[2016-10-19] MEDS ORDERED: Albuterol 2.5 MG/3 ML NEB.SOL* (0.083%) INH ONE (15:15)
--- NOTE | 2016-10-19 15:20 | HP ---
CC: Dr. Rojo; Dr. Osborn * ADMISSION HISTORY AND PHYSICAL: DATE OF ADMISSION: 10/19/16 CHIEF COMPLAINT: Shortness of breath. HISTORY OF PRESENT ILLNESS: Mr. Zhao is a 70-year-old woman with a history of recurrent pyelonephritis and kidney stones as well as recurrent pulmonary emboli who developed sudden onset of shortness of breath starting around 9 p.m. at home. She states that she has some left-sided chest discomfort without really pain. She has no fever, but she started to have chills and a mild cough around the same time her shortness of breath developed. The patient has had no nausea or vomiting. The patient did have some dysuria yesterday. She denies any hematuria. She saw her CLAIMS [facility]OCIATE provider at [facility] yesterday and was told she had a yeast infection and possible UTI. She was started on clotrimazole cream and oral nitrofurantoin at that time. The patient sees Dr. Osborn for frequent UTIs and kidney stones. She was admitted with sepsis due to renal stones and pyelonephritis in May and July of this year. Her most recent hospital stay was same-day surgery on 10/[address] Osborn where she had a left renal calculus extracted. There is a stent in the left ureter at this time. PAST MEDICAL HISTORY: Includes pyelonephritis and kidney stones as above, chronic kidney disease, hypertension, history of AL with NSTEMI in May in the setting of sepsis. She had recurrent pulmonary emboli at least three times in the past. Seizure disorder, depression, hypothyroidism and legal blindness due to cataract at a young age. PAST SURGICAL HISTORY: She had cataract removal in the right in 1970; in the left in 1989, cholecystectomy in 2011, hysterectomy in October 2014. MEDICATIONS ON ADMISSION: 1. Aspirin 81 mg p.o. daily 2. Atenolol 50 mg p.o. q.a.m. 3. Atorvastatin 20 mg p.o. q.p.m 4. Alphagan one drops both eyes daily. 5. Bumetanide 1 mg p.o. q.a.m. 6. Levothyroxine 25 mcg p.o. q.a.m. 7. Multivitamin one tab daily. 8. Urocit 15 mEq p.o. t.i.d. 9. Sodium chloride gel one drop to the left eye daily. 10. Warfarin 7.5 mg p.o. q.p.m. (she states she is compliant medications and had an INR done almost three weeks ago, which was in normal range). ALLERGIES: Include LEVAQUIN, SULFA, AND LATEX. FAMILY HISTORY: Notable for father with leukemia and mother with diabetes. 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 She is . She has two children. Her Yaya is her surrogate healthcare decision maker. She never smoked. No alcohol or drug use. REVIEW OF SYSTEMS: The patient was feeling fine early this evening and had a good dinner. No anorexia, weight loss. The patient denies any palpitations or chest pain radiating to the neck or jaw. The patient denies any hemoptysis. The patient denies any nausea, vomiting or diarrhea, constipation or abdominal pain. The patient denies any hematuria, but does have dysuria. The patient has chronic venous stasis ulcers in both legs. She has been referred to the wound clinic. The patient has chronic low vision. Remainder of a 14-point review of systems is negative other than that mentioned in the HPI. PHYSICAL EXAMINATION GENERAL: She is an obese woman, lying in bed, in no acute distress. VITAL SIGNS: Temperature 37.2, pulse 103 to 108, respirations 34 to 36, blood pressure 135/106, O2 sat is 98% on 2 L. HEENT: Head is normocephalic, atraumatic. Sclera anicteric. Pupils are round , sluggishly reactive to light. There is an opacity in the cornea on the left partly obscuring the pupils. Oropharynx, no lesions. NECK: No JVD. No carotid bruits. No thyromegaly. LUNGS: Clear to auscultation and percussion bilaterally. HEART: Tachycardiac, regular, no murmurs. ABDOMEN: Soft. Positive bowel sounds. No hepatosplenomegaly. No masses. There is bilateral CVA tenderness. EXTREMITIES: 2+ pitting edema bilateral lower extremities with chronic venous stasis changes and superficial ulceration in the shins bilaterally. NEUROLOGIC: Cranial nerves II through XII are intact. She is moving all four extremities with equal power. Deep tendon reflexes are absent. LABORATORY DATA: Sodium 140, potassium 3.9, chloride 105, bicarb 26, BUN 31, creatinine 1.40, glucose 173, calcium 9.7, albumin 3.7, AST 14, ALT 15. Bilirubin is 0.3. Lactic acid 1.8. INR 1.1. D-dimer 204. Troponin 0.00. White count 18.7, hemoglobin 11.3, hematocrit 36%, platelet 323. EKG shows sinus tachycardia without ischemia. Chest x-rays negative for infiltrates or effusions. ASSESSMENT AND PLAN: A 70-year-old woman presenting with sepsis evidenced by her tachycardia, tachypnea, elevated white count. Infectious sources could include pneumonia not clearly visualized on chest x-ray or pyelonephritis. She will be admitted to the hospital and placed on ceftriaxone and azithromycin empirically until she has some culture data to guide us. She will be given 30 mL per kilogram of fluids by rapid infusion. We will check a renal ultrasound to assess for hydronephrosis and need for urology intervention. Urinalysis has been collected in the ER and sent. The patient also has some amount of shortness of breath and I suspect she has pulmonary embolism. We would like to get a CT angiogram of the chest tonight. However, there has been difficulty getting an intravenous line that is large enough to give IV contrast. She is not a good candidate for V/Q scanning because of her body habitus. In any case, she will have to treat potential pulmonary embolus. She will have full dose Lovenox tonight and we will start warfarin at 10 mg daily and check her INR daily hoping to stop Lovenox when her INR is in the 2-3 range. Code status is full. [id number]/[facility] #: [id number] MTDD
[2016-10-19 15:52] LABS: Troponin I 0.01 ng/mL (<0.04)
--- NOTE | 2016-10-19 17:31 | RAD ---
Indication: Sepsis. CT of the chest, abdomen and pelvis was performed without oral or IV contrast administration. Coronal and sagittal reconstructed images were obtained. The inferior thyroid lobes are unremarkable. There is no mediastinal or hilar adenopathy. An aberrant right subclavian artery is noted. Small precarinal lymph nodes are noted measuring approximately 10 mm. No definite hilar adenopathy is noted. The heart demonstrates no pericardial effusion. The trachea and major bronchi appear patent. The lung bazan demonstrate no evidence of alveolar consolidation. There is a right upper lobe nodule noted measuring approximately 9 mm. This was not present on prior exam of April 26, 2016 and may represent area of pneumonia. Additional peripheral infiltrate is noted in the right upper lobe measuring approximately 5 mm. Other areas of airspace disease in the right middle lobe and inferior right upper lobe is noted which have a similar appearance. These measures up to 7 mm. The left lung field also demonstrates nodular density in the left base measuring 5 mm. Smaller nodules are noted measuring 3 mm in the left lingula. Although this may represent multifocal pneumonia possibility of metastatic disease is not totally excluded. The axilla demonstrates no evidence of abnormal masses. Heart demonstrates no pericardial effusion. CT of the abdomen and pelvis demonstrates liver to be normal in size. No focal lesions or intrahepatic ductal dilatation is noted. The spleen is normal in size. No adrenal masses are noted. The pancreas demonstrates no mass effect or ductal dilatation. There is a left ureteral stent in place. No retroperitoneal lymphadenopathy is present. Atherosclerotic aorta is noted. No aneurysmal dilatation is noted. CT of the pelvis demonstrates no retroperitoneal or pelvic lymphadenopathy. No dilated loops of bowel are noted. No evidence of abnormal fluid collections are noted. No hernias are noted. The bony structures demonstrate multilevel degenerative disc disease. IMPRESSION: LEFT URETERAL STENT IN PLACE. NO ABDOMINAL MASSES OR FLUID COLLECTIONS ARE NOTED. SMALL SCATTERED NODULAR DENSITIES ARE SCATTERED THROUGHOUT BOTH LUNG BAZAN LARGEST IN THE RIGHT UPPER LOBE, RIGHT MIDDLE LOBE AND LEFT LOWER LOBE. THESE ARE NONSPECIFIC AND MAY REPRESENT MULTIFOCAL INFILTRATES. ALTERNATIVELY THE POSSIBILITY OF METASTATIC LESIONS ARE NOT EXCLUDED.
[2016-10-19] MEDS ORDERED: Vancomycin(*) 1,500 MG in NS 0.9% 250 ML* 250 ML IVPB ONE (18:00)
[2016-10-19] MEDS: Cefepime(*) 2 GM in NS 0.9% 50 ML* 50 ML IVPB SCH (18:13)
[2016-10-19 18:49] LABS: C Reactive Protein 201.57 mg/L (< 5.00)
[2016-10-19] MEDS ORDERED: Vancomycin per Pharmacy* NOTE FOLLOW UP PRN (19:15)
[2016-10-19] MEDS ORDERED: Albuterol/Ipratropium NEB.SOL* Albuterol 2.5 MG/Ipratropium 0.5 MG 3 ML ONE (19:46)
[2016-10-19] MEDS: Morphine INJ* 2 MG/ML 1 ML SYRINGE IV PRN ×2 (19:50→21:59)
[2016-10-19] MEDS ORDERED: Ondansetron INJ* 2 MG/ML VIAL ONE (20:01)
[2016-10-19] MEDS ORDERED: Sodium Chloride(INHALANT)0.9%* 5 ML NEB.SOLN INH PRN (21:48)
[2016-10-19] MEDS: PTO: Brimonidine P 0.1%(NF) 1 DROP BTL BOTH EYES SCH (21:58)
[2016-10-20] MEDS ORDERED: cefTRIAXone VIAL(*) 1,000 MG in NS 0.9% 50 ML* 50 ML IVPB SCH ×2
[2016-10-20] MEDS: Acetaminophen TAB* 325 MG PO PRN ×3 (00:57→20:00)
[2016-10-20] MEDS: Morphine INJ* 2 MG/ML 1 ML SYRINGE IV PRN ×3 (00:59→07:06)
[2016-10-20] MEDS ORDERED: Azithromycin IV(*) 500 MG in NS 0.9% 250 ML* 250 ML IVPB SCH (02:30)
[2016-10-20] MEDS: Vancomycin(*) 1,000 MG in NS 0.9% 250 ML* 250 ML IVPB SCH ×3 (03:44→20:01)
[2016-10-20 05:39] LABS: Hematocrit 31 % (35-47); Hemoglobin 9.9 g/dl (12.0-16.0); Mean Corpuscular HGB Conc 31 g/dl (31-36); Mean Corpuscular Hemoglobin 29 pg (27-31); Mean Corpuscular Volume 91 fL (80-97); Mean Platelet Volume 8 um3 (7.4-10.4); Red Blood Count 3.46 10^6/ul (4.0-5.4); Red Cell Distribution Width 19 % (10.5-15); White Blood Count 13.3 10^3/ul (3.5-10.8)
[2016-10-20] MEDS: Enoxaparin(*) 150 MG/ML 1 ML SYRINGE SUBCUT SCH (05:40)
[2016-10-20] MEDS: Levothyroxine TAB* 25 MCG TAB PO SCH (05:40)
[2016-10-20] MEDS: Cefepime(*) 2 GM in NS 0.9% 50 ML* 50 ML IVPB SCH ×2 (05:40→17:45)
[2016-10-20 05:53] LABS: Albumin 2.6 g/dL (3.2-5.2); BUN/Creatinine Ratio 19.9 (8-20); Calcium 8.1 mg/dL (8.6-10.3); EGFR African American 43.9 (>60); EGFR Non-African American 34.2 (>60); Globulin 3.3 g/dL (2-4); Magnesium 1.8 mg/dL (1.9-2.7); Total Bilirubin 0.3 mg/dL (0.2-1.0); Total Protein 5.9 g/dL (6.4-8.9)
[2016-10-20] MEDS: NS 0.9% 1000 ML* 1,000 ML IV SCH ×3 (06:30→23:33)
[2016-10-20] MEDS: Aspirin EC Low Dose* 81 MG TAB.EC PO SCH (07:57)
[2016-10-20] MEDS: Atorvastatin* 20 MG TAB PO SCH (07:57)
[2016-10-20] MEDS: Levalbuterol 1.25MG/0.5ML NEB INH PRN ×2 (08:10→18:19)
[2016-10-20] MEDS ORDERED: Magnesium Sulfate 2 GM IV* 2 GM/50 ML BAG IVPB ONE (08:36)
[2016-10-20] MEDS ORDERED: Metoprolol Tartrate IV* 1 MG/ML 5 ML VIAL IV ONE (08:45)
[2016-10-20] MEDS ORDERED: Metoprolol Tartrate IV* 1 MG/ML 5 ML VIAL ONE (08:46)
--- NOTE | 2016-10-20 08:56 | PN ---
Subjective Date of Service: 10/20/16 Interval History: Pt reports she had a "rough night" reporting fevers overnight with cooling blanket placed. She is noted to have a temp 101 this am. No chills/rigors. Nausea but no vomiting. No abdominal pain. Currently denies back/flank pain but reports she has had some intermittent back/flank pain. No neck pain or ROBB. Denies SOB or CP. Reports occasional cough with little yellow sputum. 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 No known tick bite. Objective Active Medications: Acetaminophen (Tylenol Tab*) 650 mg PO Q4H PRN PRN Reason: FEVER/HEADACHE Last Admin: 10/20/16 07:57 Dose: 650 mg Aspirin (Aspirin Ec Low Dose*) 81 mg PO QAM [facility] Last Admin: 10/20/16 07:57 Dose: 81 mg Atorvastatin Calcium (Lipitor*) 20 mg PO [facility] Last Admin: 10/20/16 07:57 Dose: 20 mg Brimonidine Tartrate (Alphagan P 0.1% (Nf)) 1 drop BOTH EYES BID [facility] Last Admin: 10/19/16 21:58 Dose: Not Given Enoxaparin Sodium (Lovenox(*)) 120 mg SUBCUT Q12H [facility] Last Admin: 10/20/16 05:40 Dose: 120 mg Cefepime HCl 2 gm/ Sodium (Chloride) 50 mls @ 100 mls/hr IVPB Q12H [facility] Last Admin: 10/20/16 05:40 Dose: 100 mls/hr Vancomycin HCl 1,000 mg/ (Sodium Chloride) 250 mls @ 166.667 mls/hr IVPB 0400, 1200,2000 [facility] Last Admin: 10/20/16 03:44 Dose: 166.667 mls/hr Sodium Chloride (Ns 0.9% 1000 Ml*) 1,000 mls @ 100 mls/hr IV PER RATE [facility] Stop: 10/21/16 05:58 Last Admin: 10/20/16 06:30 Dose: 100 mls/hr Magnesium Sulfate (Magnesium Sulfate 2 Gm Iv*) 2 gm in 50 mls @ 50 mls/hr IVPB ONCE ONE Stop: 10/20/16 09:35 Levalbuterol HCl (Xopenex 1.25 Mg/0.5 Ml Neb.Ale*) 1.25 mg INH Q2H PRN PRN Reason: SOB/WHEEZING Last Admin: 10/20/16 08:10 Dose: 1.25 mg Levothyroxine Sodium (Synthroid Tab*) 25 mcg PO DAILY@0600 [facility] Last Admin: 10/20/16 05:40 Dose: 25 mcg Metoprolol Tartrate (Lopressor Iv*) 5 mg IV ONCE ONE Stop: 10/20/16 08:46 Morphine Sulfate (Morphine Inj (Syringe)*) 2 mg IV Q3H PRN PRN Reason: PAIN Last Admin: 10/20/16 07:06 Dose: 2 mg Pto: Potassium Citrate (Alkalinizer [Urocit-K 15] 15 Meq 15 meq PO TID [facility] Last Admin: 10/19/16 21:58 Dose: Not Given Ondansetron HCl (Zofran Inj*) 4 mg IV Q6H PRN PRN Reason: NAUSEA Pharmacy Consult (Vancomycin Per Pharmacy*) 1 note FOLLOW UP . PRN PRN Reason: PER PROTOCOL Pharmacy Profile Note (Coumadin Daily Reminder*) 0 note FOLLOW UP 1699 [facility] Last Admin: 10/19/16 21:53 Dose: 1 note Pharmacy Profile Note (Vancomycin Trough Check) 1 note FOLLOW UP 1929 ONE Stop: 10/20/16 19:31 Sodium Chloride (Sodium Chloride(Inhalant)0.9%*) 5 ml INH Q2H PRN PRN Reason: SOB/WHEEZING Last Admin: 10/20/16 08:07 Dose: 5 ml Sodium Chloride (Hypertonic) (Karolina 128 Opth 2% Ale*) 1 drop LEFT EYE Q4H PRN PRN Reason: DRY EYE Last Admin: 10/19/16 14:45 Dose: 1 drop Warfarin Sodium (Coumadin Tab(*)) 10 mg PO DAILY@1700 [facility] PRN Reason: Protocol Last Admin: 10/19/16 16:50 Dose: 10 mg Vital Signs 10/20/16 10/20/16 10/20/16 05:58 06:00 06:15 Temperature 101.0 F 101.0 F Pulse Rate 113 115 Respiratory 22 19 18 Rate Blood Pressure 130/63 120/66 (mmHg) O2 Sat by Pulse 100 100 Oximetry 10/20/16 10/20/16 10/20/16 06:30 06:45 07:06 Temperature 101.1 F 101.2 F Pulse Rate 116 118 Respiratory 17 17 14 Rate Blood Pressure 112/63 123/58 (mmHg) O2 Sat by Pulse 99 99 Oximetry 10/20/16 08:12 Temperature Pulse Rate 162 Respiratory 22 Rate Blood Pressure (mmHg) O2 Sat by Pulse 100 Oximetry Oxygen Devices in Use Now: Nasal Cannula - 2 L NC Appearance: obese female laying in bed A+O x3; appears ill Eyes: No Scleral Icterus, PERRLA Ears/Nose/Mouth/Throat: NL Teeth, Lips, Gums, Mucous Membranes Moist Neck: NL Appearance and Movements; NL JVP Respiratory: Symmetrical Chest Expansion and Respiratory Effort, - - wheezing Cardiovascular: - - 2+ LE edema Abdominal: NL Sounds; No Tenderness; No Distention, - - obese Extremities: No Clubbing, Cyanosis, - - chronic venous stasis Neurological: Alert and Oriented x 3, NL Sensation, NL Muscle Strength and Tone Lines/Tubes/Other Access: Clean, Dry and Intact Vega, Clean, Dry and Intact Peripheral IV Result Diagrams: 10/20/16 05:20 10/20/16 05:20 Additional Lab and Data: Lab Results 10/18/16 10/18/16 10/18/16 Range/Units 23:15 23:15 23:15 WBC 18.7 H (3.5-10.8) 10^3/ul RBC 4.00 (4.0-5.4) 10^6/ul Hgb 11.3 L (12.0-16.0) g/dl Hct 36 (35-47) % MCV 90 (80-97) fL MCH 28 (27-31) pg MCHC 31 (31-36) g/dl RDW 19 H (10.5-15) % Plt Count 323 (150-450) 10^3/ul MPV 8 (7.4-10.4) um3 Neut % (Auto) 91.3 H (38-83) % Lymph % (Auto) 5.4 L (25-47) % [place] % (Auto) 2.0 (1-9) % Eos % (Auto) 0.7 (0-6) % Baso % (Auto) 0.6 (0-2) % Absolute Neuts (auto) 17.1 H (1.5-7.7) 10^3/ul Absolute Lymphs (auto) 1.0 (1.0-4.8) 10^3/ul Absolute Monos (auto) 0.4 (0-0.8) 10^3/ul Absolute Eos (auto) 0.1 (0-0.6) 10^3/ul Absolute Basos (auto) 0.1 (0-0.2) 10^3/ul Absolute Nucleated RBC 0 10^3/ul Nucleated RBC % 0 INR (Anticoag Therapy) 1.10 (0.89-1.11) D-Dimer, Quantitative 204 (Less Than 230) ng/mL Sodium 140 (133-145) mmol/L Potassium 3.9 (3.5-5.0) mmol/L Chloride 105 (101-111) mmol/L Carbon Dioxide 26 (22-32) mmol/L Anion Gap 9 (2-11) mmol/L BUN 31 H (6-24) mg/dL Creatinine 1.40 H (0.51-0.95) mg/dL Est GFR ( Amer) 47.9 (>60) Est GFR (Non-Af Amer) 37.3 (>60) BUN/Creatinine Ratio 22.1 H (8-20) Glucose 173 H (70-100) mg/dL Lactic Acid (0.5-2.0) mmol/L Calcium 9.7 (8.6-10.3) mg/dL Total Bilirubin 0.30 (0.2-1.0) mg/dL AST 14 (13-39) U/L ALT 15 (7-52) U/L Alkaline Phosphatase 58 (34-104) U/L Total Creatine Kinase 26 (10-223) U/L Troponin I 0.00 (<0.04) ng/mL B-Natriuretic Peptide ( - 100) pg/mL Total Protein 7.8 (6.4-8.9) g/dL Albumin 3.7 (3.2-5.2) g/dL Globulin 4.1 H (2-4) g/dL Albumin/Globulin Ratio 0.9 L (1-3) 10/18/16 10/18/16 Range/Units 23:15 23:15 WBC (3.5-10.8) 10^3/ul RBC (4.0-5.4) 10^6/ul Hgb (12.0-16.0) g/dl Hct (35-47) % MCV (80-97) fL MCH (27-31) pg MCHC (31-36) g/dl RDW (10.5-15) % Plt Count (150-450) 10^3/ul MPV (7.4-10.4) um3 Neut % (Auto) (38-83) % Lymph % (Auto) (25-47) % [place] % (Auto) (1-9) % Eos % (Auto) (0-6) % Baso % (Auto) (0-2) % Absolute Neuts (auto) (1.5-7.7) 10^3/ul Absolute Lymphs (auto) (1.0-4.8) 10^3/ul Absolute Monos (auto) (0-0.8) 10^3/ul Absolute Eos (auto) (0-0.6) 10^3/ul Absolute Basos (auto) (0-0.2) 10^3/ul Absolute Nucleated RBC 10^3/ul Nucleated RBC % INR (Anticoag Therapy) (0.89-1.11) D-Dimer, Quantitative (Less Than 230) ng/mL Sodium (133-145) mmol/L Potassium (3.5-5.0) mmol/L Chloride (101-111) mmol/L Carbon Dioxide (22-32) mmol/L Anion Gap (2-11) mmol/L BUN (6-24) mg/dL Creatinine (0.51-0.95) mg/dL Est GFR ( Amer) (>60) Est GFR (Non-Af Amer) (>60) BUN/Creatinine Ratio (8-20) Glucose (70-100) mg/dL Lactic Acid 1.8 (0.5-2.0) mmol/L Calcium (8.6-10.3) mg/dL Total Bilirubin (0.2-1.0) mg/dL AST (13-39) U/L ALT (7-52) U/L Alkaline Phosphatase (34-104) U/L Total Creatine Kinase (10-223) U/L Troponin I (<0.04) ng/mL B-Natriuretic Peptide 96 ( - 100) pg/mL Total Protein (6.4-8.9) g/dL Albumin (3.2-5.2) g/dL Globulin (2-4) g/dL Albumin/Globulin Ratio (1-3) Microbiology and Other Data: Microbiology 10/20/16 06:00 Nasal Screen MRSA (PCR)(TUAN) - Final Nasal Mrsa Negative Assess/Plan/Problems-Billing Assessment: Mrs. 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 Lactic jumped to 4.4 yesterday now trending down. Febrile starting last night with temps 101-102, now noted to be in afib. Temps trending down this am. Urine output 450 mls overnight. Total IVFs 5-6Ls since admission. Mentation intact. Overall feels better today and appears to be clinically improving. - urinalysis appears abnormal but is always noted to be abnormal, last urine cx growing no bacteria, still awaiting current cx. Recent urethral stent place early October for obstruction. Reports back pain, CVA tenderness? CT abdomen showing mild left hydro and patent stent (spoke with radiologist over phone). - Lungs: hypoxia with mild cough, little sputum production. Requiring 2LNC to keep O2 sat > 94%. CT chest showing: small scattered nodular densities scattered through both deleon largest in right upper, right middle and left lower lobe; radiologist reporting these are nonspecific and may represent multifocal infiltrates, alternatively metastatis lesions. Possibly acute lung injury? - Septic PE's unlikely with normal DDIMER. - SKin/wounds: Chronic venous stasis changes to LE with small open wounds - Recent exposure to multiple bug bites while gardening, Lyme? Plan: Continue Cefepime, Vano NS 1 liter bolus challenge Start solumedrol 125 mg x1 then 40 q8 Continue vega; strict I&O's blood and urine cx pending. Obtain wound cx Send TSH, Lyme serology Accounting Administrator to consult (2) History of pulmonary embolus (PE) Comment: INR subtherapeutic on admission but low suspicion of PE with DDIMER 204 , was started on lovenox. Today is therapuetic. Continue coumadin only. Follow INR Pt reports compliance with coumadin therapy (noted normal INR on admission) (3) A-fib Comment: new onset afib in the setting of sepsis; HR 110-150's - metoprolol 5 mg IV x1 now - coumadin - check TSH (4) Diabetes Comment: Hg A1C 6.5% in 05/2016. Not on home medications. Plan to start FSBG q6hr due to noted hyperglycemia, will start coverage if consistently high Recheck HbA1C (5) HTN (hypertension) Comment: - hold atenolol for now; restart when pressures are stablize (6) Hypothyroidism Comment: Continue synthroid. (allergy to levothyroxine) (7) Seizure disorder Comment: Very distant hx of seizures, not currently an issue. Reports being taken off Topamax due to contribution to renal stones - (8) DVT prophylaxis Comment: Coumadin (9) Full code status Status and Disposition: inpatient with Sepsis. discussed case with Dr. Walker
[2016-10-20] MEDS: PTO: Brimonidine P 0.1%(NF) 1 DROP BTL BOTH EYES SCH ×2 (08:57→21:05)
[2016-10-20] MEDS: SODIUM CHLORIDE 2% LEFT EYE PRN (08:57)
[2016-10-20] MEDS: POTASSIUM CITRATE PO SCH ×3 (09:00→21:05)
[2016-10-20] MEDS ORDERED: Atenolol TAB* 50 MG PO SCH (09:00)
[2016-10-20] MEDS: [UNRECOGNIZED DRUG - OTHER] PO SCH ×3 (09:00→21:05)
[2016-10-20] MEDS ORDERED: methylPREDNISolone 125 MG* 2 ML VIAL IV ONE (10:30)
[2016-10-20] MEDS ORDERED: NS 0.9% 250 ML* 250 ML ONE (10:58)
[2016-10-20] MEDS ORDERED: DOXYcycline IV* 100 MG in NS 0.9% 250 ML* 250 ML IVPB SCH (11:00)
[2016-10-20 11:07] LABS: Magnesium 1.8 mg/dL (1.9-2.7)
[2016-10-20] MEDS ORDERED: NS 0.9% 1000 ML* 1,000 ML IV ONE (11:09)
--- NOTE | 2016-10-20 11:43 | PN ---
Progress Note - Progress Note Date of Service: 10/20/16 Note: CRITICAL CARE MEDICINE Date: 10/20/16 Time: 1100 Patient seen and discussed with EDUCATIONAL ADVISER. Agree with hospital cook findings and assessment. Pt feels a bit better. Vital signs: Reviewed. No m, irr, irr, relatively clear to auscultation although had a wheeze per reports earlier, good flow, obese, abd soft, ext with chronic venous stasis and edema, oa. LABS: Reviewed. IMAGING: Reviewed. MEDICATIONS: Reviewed. ASSESSMENT/PLAN: As per EDUCATIONAL ADVISER. Seems to have had sepsis from unclear source as urine is negative; has chronic skin dynamics and potential for cellulitis source. No m on exam and unclear CT lung dynamics, as some of it could be venous pooling vs microatelectasis; pneumonia would seem less likely. Overall she is better with less metaboloic demands now. I think she has improved since addition of vanco and her dynamcis would have suggested bacterial sepsis. Would continue present course. D/w pt and her family who expressed understanding. Further plan and care per EDUCATIONAL ADVISER's note and orders. Supportive and preventative care as ordered. Disposition: ICU, Level 3 Code Status: Full Critical Care Time: see hospital cook billing, no additional time added Gaye Walker DO
[2016-10-20 12:38] LABS: TSH (Thyroid Stimulating Horm) 1.18 mcIU/mL (0.34-5.60)
[2016-10-20] MEDS ORDERED: NS 0.9% 1000 ML* 1,000 ML IV SCH (15:15)
[2016-10-20] MEDS: Warfarin TAB(*) 7.5 MG PO SCH (17:27)
[2016-10-20] MEDS: methylPREDNISolone SOD 40 MG* 1 ML VIAL IV SCH (18:11)
[2016-10-20] MEDS ORDERED: Dextrose 50% Syringe 50 ML* 25 GM/50 ML SYRINGE IV PUSH PRN (19:14)
[2016-10-20] MEDS ORDERED: Vancomycin Trough Check NOTE FOLLOW UP ONE (19:30)
[2016-10-20] MEDS ORDERED: Atenolol TAB* 25 MG PO ONE (19:32)
[2016-10-20] MEDS ORDERED: NS 0.9% 500 ML BAG* 500 ML IV ONE (23:30)
[2016-10-21] MEDS: Insulin LISPRO* 1 UNITS UNIT SUBCUT SCH ×5 (00:08→20:48)
[2016-10-21] MEDS: Levalbuterol 1.25MG/0.5ML NEB INH PRN ×4 (02:25→18:30)
[2016-10-21] MEDS: methylPREDNISolone SOD 40 MG* 1 ML VIAL IV SCH (02:55)
[2016-10-21] MEDS: Acetaminophen TAB* 325 MG PO PRN ×3 (03:03→18:04)
[2016-10-21] MEDS: Vancomycin(*) 1,000 MG in NS 0.9% 250 ML* 250 ML IVPB SCH (03:45)
[2016-10-21] MEDS: Levothyroxine TAB* 25 MCG TAB PO SCH (05:46)
[2016-10-21] MEDS: Cefepime(*) 2 GM in NS 0.9% 50 ML* 50 ML IVPB SCH ×2 (05:46→17:59)
[2016-10-21 05:56] LABS: Hematocrit 31 % (35-47); Hemoglobin 9.9 g/dl (12.0-16.0); Mean Corpuscular HGB Conc 32 g/dl (31-36); Mean Corpuscular Hemoglobin 29 pg (27-31); Mean Corpuscular Volume 91 fL (80-97); Mean Platelet Volume 9 um3 (7.4-10.4); Red Blood Count 3.43 10^6/ul (4.0-5.4); Red Cell Distribution Width 20 % (10.5-15); White Blood Count 8.4 10^3/ul (3.5-10.8)
[2016-10-21 06:07] LABS: BUN/Creatinine Ratio 22.5 (8-20); Calcium 8.1 mg/dL (8.6-10.3); EGFR African American 52.7 (>60); Magnesium 2.4 mg/dL (1.9-2.7); Potassium 4.3 mmol/L (3.5-5.0)
[2016-10-21] MEDS: [UNRECOGNIZED DRUG - OTHER] PO SCH ×3 (09:29→20:16)
[2016-10-21] MEDS: Aspirin EC Low Dose* 81 MG TAB.EC PO SCH (09:29)
[2016-10-21] MEDS: PTO: Brimonidine P 0.1%(NF) 1 DROP BTL BOTH EYES SCH ×2 (09:29→20:10)
[2016-10-21] MEDS: Atorvastatin* 20 MG TAB PO SCH (09:29)
[2016-10-21] MEDS: Atenolol TAB* 25 MG PO SCH (09:29)
[2016-10-21] MEDS: POTASSIUM CITRATE PO SCH ×3 (09:29→20:16)
--- NOTE | 2016-10-21 09:37 | ECHO ---
Patient: DIDI GODWIN [facility] Rec#: [id number] : 1945 Date: 10/21/2016 Age: 70y Height: 167.6 cm / 66.0 in Weight: 141.1 kg / 311.0 lbs Sex: F BSA: 2.4 Room#: ICU 2 Admit Date#: 10/19/2016 Type: Inpatient Referring: Lourdes Anderson Reading: Taco Mcrae MD Porcelain Waxer: Noy Bernal RN RDCS CC: Aby Balbuena MD CC: Popeye Rojo MD Transthoracic Echocardiogram Indication: Shortness of breath BP: 139/69 HR: 98 Rhythm: A-Fib Findings History: HTN, NSTEMI 05/2016, recurrent PE, CKD, seizures, thyroid disease, morbid obesity Technical Comments: The study is technically limited due to patient body habitus. Completed at 0850. Left Ventricle: The left ventricular chamber size is decreased. Mild concentric left ventricular hypertrophy is observed. Septal wall hypertrophy is observed. Basal septal hypertrophy is observed. There is increased basal septal hypertrophy noted without evidence of an increased gradient across the left ventricular outflow tract. Global left ventricular wall motion and contractility are within normal limits. Left ventricular systolic function is at the lower limits of normal. The estimated ejection fraction is 50-55%. The assessment of diastolic function is non-diagnostic. Left Atrium: The left atrium is mildly dilated. Right Ventricle: The right ventricular cavity size is normal. The right ventricular global systolic function is low normal. Right Atrium: The right atrium is mildly dilated. Aortic Valve: The aortic valve is trileaflet. The aortic valve leaflets are mildly thickened. There is no evidence of aortic regurgitation. There is no evidence of aortic stenosis. Mitral Valve: There is mitral annular calcification. The mitral valve leaflets are mildly thickened. There is moderate to severe mitral regurgitation. There is no evidence of mitral stenosis. Tricuspid Valve: The tricuspid valve leaflets are normal. There is mild tricuspid regurgitation. There is evidence of mild pulmonary hypertension. There is no tricuspid stenosis. Pulmonic Valve: The pulmonic valve structure is not well visualized. There is a trace pulmonic regurgitation. There is no pulmonic stenosis. Pericardium: There is no significant pericardial effusion. A pericardial fat pad is visualized. Aorta: There is no dilatation of the ascending aorta. There is no dilatation of the aortic arch. There is no dilation of the aortic root. Pulmonary Artery: The main pulmonary artery appears normal. Venous: The inferior vena cava is dilated. There is less than 50% respiratory change in the inferior vena cava dimension. Conclusions Left ventricular systolic function is at the lower limits of normal. Global left ventricular wall motion and contractility are within normal limits. There is increased basal septal hypertrophy noted without evidence of an increased gradient across the left ventricular outflow tract. The assessment of diastolic function is non-diagnostic. The right ventricular global systolic function is low normal. There is no evidence of aortic stenosis. There is moderate to severe mitral regurgitation. There is mild tricuspid regurgitation. There is no significant pericardial effusion. Compared to study of 06/02/16, the LV function is the same. The degree of MR is worse Measurements Name Value Normal Range RVDdMajor (2D) 3 cm (2.2 - 4.4) RAd ISD 4CH 5.5 cm (3.4 - 4.9) RA (A4C)W 3.6 cm (2.9 - 4.6) IVSd (2D) 1.7 cm (0.6 - 1) LVPWd (2D) 1.1 cm (0.6 - 1) LVIDd (2D) 3.5 cm (3.6 - 5.4) Aortic Annulus 2.2 cm (1.4 - 2.6) Ao root diameter (2D) 2.9 cm (2.1 - 3.5) Ascending Ao 3.3 cm (2.1 - 3.4) Aortic arch 2.3 cm (1.8 - 3.4) LA dimension (AP) 2D 3.7 cm (2.3 - 3.8) LAd ISD 4CH 5.9 cm (2.9 - 5.3) LA ISD 4CH W 4.7 cm (2.5 - 4.5) Name Value Normal Range LA ESV SP 4CH (A/L) 92 ml - LA ESV SP 2CH (A/L) 85 ml - LA ESV BP (A/L) 89 ml - LA ESV BP (A/L) index 37 ml/m2 - LA ESV SP 4CH (MOD) 82 ml - LA ESV SP 2CH (MOD) 82 ml - Name Value Normal Range MV E-wave Vmax 1.4 m/sec - MV deceleration time 143 msec - LV septal e' Vmax 0.12 m/sec - LV lateral e' Vmax 0.12 m/sec - LV E:e' septal ratio 11.7 ratio - LV E:e' lateral ratio 11.7 ratio - Name Value Normal Range AV Vmax 1.4 m/sec - AV VTI 29.9 cm - AV peak gradient 7.7 mmHg - AV mean gradient 4.6 mmHg - LVOT Vmax 1 m/sec - LVOT VTI 20.6 cm - LVOT peak gradient 4.2 mmHg - LVOT mean gradient 2.1 mmHg - NICOLE Vmax 0.52 m/sec - Name Value Normal Range MV Vmax 1.5 m/sec - MV VTI 24.6 cm - MV peak gradient 9.2 mmHg - MV mean gradient 3.4 mmHg - MV PHT 66 msec - MVA (PHT) 3.4 cm2 - Name Value Normal Range TR Vmax 2.3 m/sec - TR peak gradient 21 mmHg - RAP 15 mmHg - RVSP 36 mmHg - IVC diameter 3.2 cm - Name Value Normal Range PV Vmax 0.77 m/sec -
[2016-10-21] MEDS: SODIUM CHLORIDE 2% LEFT EYE PRN (09:42)
--- NOTE | 2016-10-21 11:13 | PN ---
Progress Note - Progress Note Date of Service: 10/21/16 Note: CRITICAL CARE MEDICINE Date: 10/21/16 Time: 930 SUBJECTIVE: Patient seen and examined. Feels better. PHYSICAL EXAM: Vital Signs: Reviewed. Neurologic: awake, communication, chronic left eye palsy HEENT: Sclera anicteric. Trachea midline. Cardiovascular: S1 S2 distant, reg Respiratory: mild right sided wheeze Abdomen: Soft, obese, nt. Extremities: Warm. chronic changes and dep edema LABS: Reviewed. IMAGING: Reviewed. MEDICATIONS: Reviewed. ASSESSMENT: 70 F with severe sepsis, likely sec to cellulitis at this point as seemed to respond to better staph & strept coverage. Has h/o uti but ua was benign. no other obvious source. Ask ID to eval and can sort abx needs and duration. Acute resp failure - resolving. wean off O2. IS prn Afib with rvr - has now converted back to nsr. on atenolol. on chronic anticoag already. Stress dose steroids can come off now. DM - ssi adjusted and f/u needs hypoT4 - chronic replacement po diet, oob, ambulate. imtiaz vega. Supportive and preventative care as ordered. Disposition: floor with tele Code Status: Full Critical Care Time: 25min Gaye Walker DO
--- NOTE | 2016-10-21 12:32 | CONS ---
CONSULTATION REPORT: DATE OF CONSULT: 10/21/16 REQUESTING PHYSICIAN: Dr. Walker. CONSULTING SERVICE: Infectious Disease. REASON FOR CONSULTATION: Fever, sepsis. IMPRESSION: 1. Sepsis, present on admission, resolved. 2. Fever, resolved, on broad-spectrum antibiotics. 3. Differential diagnosis for the source of infection includes urinary tract. She has a left urete ral stent. There is some left perinephric stranding. She has a grossly abnormal urinalysis with th e cultures negative; of note she was on nitrofurantoin at the time the culture was taken, which may have led to a false negative urine culture. She has a few scattered pulmonary emboli, which could b e infectious. Differential diagnosis there includes cryptococcal disease, septic pulmonary emboli t jeanette the blood cultures are negative, doubt mycobacterial infection, other fungal are possible. 3. Dyspnea. I do not think pulmonary nodules would explain her dyspnea. 4. Morbid obesity. 5. Allergic to SULFA and FLUOROQUINOLONE. 6. Nephrolithiasis and history of pyelonephritis. 7. Lzudlfzp-[id number]-fhayyc mitral regurgitation, progressed compared to May 2016. RECOMMENDATIONS: 1. I will continue cefepime to cover left pyelonephritis and would stop the vancomycin. Of note, s he had a skin swab of the left leg in the setting of venous stasis changes, I cultured, grew Staph a ureus and pseudomonas, I think both are colonization. 2. I will follow up her blood cultures and also I have added cryptococcal antigen to the blood to e valuate pulmonary nodules. HISTORY OF PRESENT ILLNESS: This is a 70-year-old woman with nephrolithiasis, history of bilateral ureteral stents, and at admission to [facility] in September, blood cultures then grew bacteroides. She was lyla ated for left lower extremity cellulitis at that time and her symptoms resolved. She was readmitted with sudden onset of shortness of breath and left-sided chest pain with some left-sided low back pa in. When she came to hospital, she had white count of 18,000, blood pressure was in high 80s in the ER, she was febrile and tachycardiac. Blood cultures were sent and are negative. At this point, u rine culture was sent and is negative. A urinalysis was sent that showed 3+ blood, 3+ leukocyte est erase. She was on Macrodantin for a day as prescribed by her telemetry nurse and she is not sure why s he was taking it. Her creatinine was 1.4 on admission, was as high as 1.6 on the , it is 1.3 to day. Her lactate was 4.4 on the and trended down the same day. Her appetite is much better th at have been decreased and she has had chills initially, that is resolved as well. She is eating a bit today. No diarrhea or abdominal pain. She has not had any open sores on the leg that she knows of. A CT of the chest, abdomen, and pelvis was obtained that showed left ureteral stent, small sca ttered lung nodules. She had a transthoracic echocardiogram on the that showed [id number] ere mitral regurgitation, which had progressed compared to May. PAST MEDICAL HISTORY: 1. Morbid obesity. 2. Blindness. 3. Pyelonephritis. 4. Nephrolithiasis. 5. Bilateral ureteral stents, which were exchanged in October and now has a left ureteral stent. 6. Coronary artery disease. History of non-ST elevation MN in May 2016. 7. History of pulmonary emboli. 8. Seizure disorder. 9. Depression. 10. Hypothyroidism. 11. Status post cholecystectomy. 12. Status post hysterectomy. MEDICATIONS: 1. Tylenol. 2. Aspirin. 3. Atenolol. 4. Levothyroxine. 5. Cefepime 2 g every 12 hours. 6. Vancomycin. 7. Warfarin. ALLERGIES: LEVAQUIN, SULFA and LATEX. FAMILY HISTORY: Both parents with diabetes. SOCIAL HISTORY: She lives with her . She is retired. No injection drugs. REVIEW OF SYSTEMS: All negative to full review of systems except as noted above. PHYSICAL EXAM: Vital Signs: Temperature is 36.6, heart rate 86, respiratory rate is 16, blood pres sure is 118/66, O2 99% on 2 L. General: She is awake, not in distress. Neurologic: She is orient ed x3, follows all commands. Moves all extremities. Answers all questions appropriately. HEENT: There is no conjunctival hemorrhage. Oropharynx without lesions. Neck: Supple without nuchal rigi dity. Lymph nodes: There is no cervical, supraclavicular, inguinal, axillary, or epitrochlear lymp hadenopathy. Heart: Regular rate and rhythm without murmurs, rubs or gallops. Lungs: Clear to au scultation bilaterally. Abdomen: Soft, nontender, nondistended. There are bowel sounds present. There is mild left flank tenderness to palpation. There is no right flank tenderness to palpation. Skin: There is no rash or splinter hemorrhages. There is trace erythema in the bilateral lower ext remities and other changes of venous insufficiency. There are no open sores or ulcers. Musculoskel etal: There is no spine tenderness to palpation. No joint synovitis. LABORATORY DATA: Creatinine 1.3, white blood cell count 8, hemoglobin 9, platelets 237. Please see impressions and recommendations outlined above, which I have discussed with Dr. Walker. Thank you for asking me to see Glenroy Pavel in consultation. [id number] #: [id number]
[2016-10-21] MEDS: Ondansetron INJ* 2 MG/ML VIAL IV PRN (17:55)
[2016-10-21] MEDS: Warfarin TAB(*) 7.5 MG PO SCH (18:04)
[2016-10-21] MEDS: Clotrimazole/Betamethasone CREAM* 15 GM TOPICAL SCH (20:11)
[2016-10-21] MEDS: Morphine INJ* 2 MG/ML 1 ML SYRINGE IV PRN (20:48)
[2016-10-22] MEDS: Ondansetron INJ* 2 MG/ML VIAL IV PRN (01:36)
[2016-10-22] MEDS: Levothyroxine TAB* 25 MCG TAB PO SCH (05:36)
[2016-10-22] MEDS: Cefepime(*) 2 GM in NS 0.9% 50 ML* 50 ML IVPB SCH ×2 (05:36→17:22)
[2016-10-22] MEDS: Levalbuterol 1.25MG/0.5ML NEB INH PRN ×2 (06:07→20:07)
[2016-10-22] MEDS: Insulin LISPRO* 1 UNITS UNIT SUBCUT SCH ×4 (08:13→23:32)
[2016-10-22] MEDS: [UNRECOGNIZED DRUG - OTHER] PO SCH ×3 (08:14→21:21)
[2016-10-22] MEDS: POTASSIUM CITRATE PO SCH ×3 (08:14→21:21)
[2016-10-22] MEDS: Atenolol TAB* 25 MG PO SCH (08:15)
[2016-10-22] MEDS: Aspirin EC Low Dose* 81 MG TAB.EC PO SCH (08:15)
[2016-10-22] MEDS: Atorvastatin* 20 MG TAB PO SCH (08:15)
[2016-10-22] MEDS: Clotrimazole/Betamethasone CREAM* 15 GM TOPICAL SCH ×2 (08:17→21:21)
[2016-10-22] MEDS: PTO: Brimonidine P 0.1%(NF) 1 DROP BTL BOTH EYES SCH ×2 (08:17→21:20)
[2016-10-22] MEDS: SODIUM CHLORIDE 2% LEFT EYE PRN (12:18)
--- NOTE | 2016-10-22 15:02 | PN ---
Progress Note - Progress Note Date of Service: 10/22/16 SOAP: Subjective: CC: sepsis HPI: 70 year old woman with left ureteral stent and fever, low back pain. No fever, rash, or diarrhea. Hungry. Supplemental O2 weaned off. Occasional brief episodes of dyspnea resolves with nebulizer. No chest pain some cough. Had a UC as outpatient last pt at [facility]; mixed jarad. Objective: [] Vital Signs Temp 36.4 C 10/22/16 07:50 Pulse 96 10/22/16 08:57 Resp 18 10/22/16 08:57 BP 140/72 10/22/16 07:50 Pulse Ox 96 10/22/16 08:57 Intake & Output 10/21/16 10/22/16 10/22/16 18:59 06:59 18:59 Intake Total 452 397 7387 Output Total 300 Balance 204 761 7620 Intake: Oral 803 274 8180 Output: Dixon 300 Other: Estimated Void Small Medium Medium # Bowel Movements 1 1 Estimated Stool Amount Small Small # Voids 1 2 1 Gen:Awake, no distress HEENT:no thrush Heart:RRR no murmur Lungs:CTA BL Abd:+BS NTND soft Skin: no rash MSK: no spine tenderness or joint synovitis Laboratory Results - last 24 hr 10/19/16 10/21/16 10/21/16 15:19 05:35 16:54 POC Glucose (mg/dL) 242 H Lyme Disease Serology Negative Cryptococcus Ag Negative 10/21/16 10/22/16 10/22/16 20:10 07:40 10:56 POC Glucose (mg/dL) 260 H 185 H 223 H Lyme Disease Serology Cryptococcus Ag Assessment: 1. sepsis, present on admission, resolved 2. Leukocytosis, resolved, diff dx includes multifocal PNA vs UTI given stent and pyuria (though neg UC) 3. morbid obesity 4. left ureteral stent Plan: 1. continue cefepime day 3, can use levaquin 750 mg po daily x7 more days for discharge 35 minutes floor time >50% face to face with patient and in counseling regarding next steps in antibiotic treatment. All questions answered.
[2016-10-22] MEDS: Warfarin TAB(*) 7.5 MG PO SCH (17:21)
[2016-10-22] MEDS: Acetaminophen TAB* 325 MG PO PRN (21:23)
[2016-10-23] MEDS: Levothyroxine TAB* 25 MCG TAB PO SCH (05:47)
[2016-10-23] MEDS: Cefepime(*) 2 GM in NS 0.9% 50 ML* 50 ML IVPB SCH (05:47)
--- NOTE | 2016-10-23 06:09 | PN ---
Subjective Date of Service: 10/22/16 Interval History: . Interviewed and examined patient at bedside; Discussed case with Dr. Walker ; Reviewed previous notes and radiology results; denies new complaints at bedside discussed AF - that she is in NSR now. discussed ddx: PNA vs UTI. encouraged ambulation. discussed that she can continue on oral Abx as per ID was concerned that her OB-MINE WEDGE SAWYER was interested in treating a "yeast infection" -- though probably was based on abnl UA - now thought to be a bacterial UTI. discussed likely dc in AM. Family History: Unchanged from Admission Social History: Unchanged from Admission Past Medical History: Unchanged from Admission Objective Active Medications: . Acetaminophen (Tylenol Tab*) 650 mg PO Q4H PRN PRN Reason: FEVER/HEADACHE Last Admin: 10/22/16 21:23 Dose: 650 mg Aspirin (Aspirin Ec Low Dose*) 81 mg PO QAM [facility] Last Admin: 10/22/16 08:15 Dose: 81 mg Atenolol (Tenormin Tab*) 25 mg PO DAILY [facility] Last Admin: 10/22/16 08:15 Dose: 25 mg Atorvastatin Calcium (Lipitor*) 20 mg PO QAM [facility] Last Admin: 10/22/16 08:15 Dose: 20 mg Betamethasone/Clotrimazole (Lotrisone Cream*) 1 applic TOPICAL BID [facility] Last Admin: 10/22/16 21:21 Dose: 1 applic Brimonidine Tartrate (Alphagan P 0.1% (Nf)) 1 drop BOTH EYES BID [facility] Last Admin: 10/22/16 21:20 Dose: 1 drop Dextrose (D50w Syringe 50 Ml*) 12.5 gm IV PUSH .FOR FS < 60 - SS PRN PRN Reason: FS < 60 Cefepime HCl 2 gm/ Sodium (Chloride) 50 mls @ 100 mls/hr IVPB Q12H [facility] Last Admin: 10/23/16 05:47 Dose: 100 mls/hr Insulin Human Lispro (Humalog*) 0 units SUBCUT ACHS [facility] PRN Reason: Protocol Last Admin: 10/22/16 23:32 Dose: 2 units Levalbuterol HCl (Xopenex 1.25 Mg/0.5 Ml Neb.Ale*) 1.25 mg INH Q2H PRN PRN Reason: SOB/WHEEZING Last Admin: 10/22/16 20:07 Dose: 1.25 mg Levothyroxine Sodium (Synthroid Tab*) 25 mcg PO DAILY@0600 [facility] Last Admin: 10/23/16 05:47 Dose: 25 mcg Morphine Sulfate (Morphine Inj (Syringe)*) 2 mg IV Q3H PRN PRN Reason: PAIN Last Admin: 10/21/16 20:48 Dose: 2 mg Pto: Potassium Citrate (Alkalinizer [Urocit-K 15] 15 Meq 15 meq PO TID [facility] Last Admin: 10/22/16 21:21 Dose: Not Given Ondansetron HCl (Zofran Inj*) 4 mg IV Q6H PRN PRN Reason: NAUSEA Last Admin: 10/22/16 01:36 Dose: 4 mg Pharmacy Profile Note (Coumadin Daily Reminder*) 0 note FOLLOW UP 1700 [facility] Last Admin: 10/22/16 17:22 Dose: 1 note Sodium Chloride (Sodium Chloride(Inhalant)0.9%*) 5 ml INH Q2H PRN PRN Reason: SOB/WHEEZING Last Admin: 10/20/16 08:07 Dose: 5 ml Sodium Chloride (Hypertonic) (Karolina 128 Opth 2% Ale*) 1 drop LEFT EYE Q4H PRN PRN Reason: DRY EYE Last Admin: 10/22/16 12:18 Dose: 1 drop Warfarin Sodium (Coumadin Tab(*)) 7.5 mg PO DAILY@1700 [facility] PRN Reason: Protocol Last Admin: 10/22/16 17:21 Dose: 7.5 mg . Vital Signs 10/22/16 10/22/16 10/22/16 06:07 07:50 08:00 Temperature 97.6 F Pulse Rate 95 83 Respiratory 16 20 16 Rate Blood Pressure 140/72 (mmHg) O2 Sat by Pulse 98 98 Oximetry 10/22/16 10/22/16 10/22/16 08:57 11:12 15:36 Temperature 97.8 F 98.3 F Pulse Rate 96 73 75 Respiratory 18 20 20 Rate Blood Pressure 121/69 118/68 (mmHg) O2 Sat by Pulse 96 99 98 Oximetry Oxygen Devices in Use Now: Nasal Cannula - 2 L NC Appearance: morbidly obese. NAD. blind Eyes: No Scleral Icterus Ears/Nose/Mouth/Throat: Clear Oropharnyx Neck: Trachea Midline Respiratory: Symmetrical Chest Expansion and Respiratory Effort Cardiovascular: NL Sounds; No Murmurs; No JVD Abdominal: NL Sounds; No Tenderness; No Distention, - - M.O. Lymphatic: No Cervical Adenopathy Extremities: No Edema Skin: No Rash or Ulcers Neurological: Alert and Oriented x 3 Lines/Tubes/Other Access: Clean, Dry and Intact Peripheral IV Nutrition: Taking PO's Result Diagrams: 10/21/16 05:35 10/21/16 05:35 Microbiology and Other Data: Microbiology 10/20/16 06:00 Nasal Screen MRSA (PCR)(TUAN) - Final Nasal Mrsa Negative Assess/Plan/Problems-Billing . Assessment: Mrs. 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 - Patient Problems (1) Sepsis Current Visit: Yes Status: Acute Comment: - Sepsis at admission; unlear etiology, suspect bacterial/urinary tract // pyelonephritis. - Recent urethral stent place early October for obstruction. Reported back pain at admission. CT abdomen showing mild left hydro and patent stent - leukocytosis now resolved. afebrile - continue oral abx x 7 days as per ID. (2) A-fib Current Visit: Yes Status: Acute Priority: High Code(s): I48.91 - UNSPECIFIED ATRIAL FIBRILLATION Comment: new onset afib in the setting of sepsis; HR 110-150's - now back in NSR - coumadin; INR ~ 2 - TSH normal (3) Full code status Current Visit: Yes Status: Acute Code(s): Z78.9 - OTHER SPECIFIED HEALTH STATUS SNOMED Code(s): 964226237 (4) Diabetes Current Visit: Yes Status: Chronic Code(s): E11.9 - TYPE 2 DIABETES MELLITUS WITHOUT COMPLICATIONS SNOMED Code(s): 64249649 Comment: Hg A1C 6.2% at admission Not on home medications. SSI (5) History of pulmonary embolus (PE) Current Visit: Yes Status: Chronic Code(s): Z86.711 - PERSONAL HISTORY OF PULMONARY EMBOLISM Comment: Continue coumadin only. Follow INR Pt reports compliance with coumadin therapy (noted normal INR on admission) (6) Hypothyroidism Current Visit: Yes Status: Chronic Priority: Medium Code(s): E03.9 - HYPOTHYROIDISM, UNSPECIFIED Comment: Continue synthroid (allergy to levothyroxine noted) (7) Seizure disorder Current Visit: Yes Status: Chronic Code(s): G40.909 - EPILEPSY, UNSP, NOT INTRACTABLE, WITHOUT STATUS EPILEPTICUS Comment: Very distant hx of seizures, not currently an issue. Reports being taken off Topamax due to "contribution to renal stones" (8) DVT prophylaxis Current Visit: Yes Status: Acute Priority: High Code(s): MXL8996 - Comment: Coumadin (9) Wound of lower extremity Current Visit: Yes Status: Acute Priority: High Code(s): S81.809A - UNSPECIFIED OPEN WOUND, UNSPECIFIED LOWER LEG, INIT ENCNTR Comment: - continue wound care - refer to wound care clinic at discharge.
[2016-10-23 09:34] LABS: BUN/Creatinine Ratio 26.3 (8-20); Calcium 8.6 mg/dL (8.6-10.3); EGFR African American 49.2 (>60); EGFR Non-African American 38.2 (>60); Magnesium 2.2 mg/dL (1.9-2.7); Phosphorus 2.3 mg/dL (2.5-5.0); Potassium 4.2 mmol/L (3.5-5.0)
[2016-10-23] MEDS: SODIUM CHLORIDE 2% LEFT EYE PRN (09:50)
[2016-10-23] MEDS: PTO: Brimonidine P 0.1%(NF) 1 DROP BTL BOTH EYES SCH (09:51)
[2016-10-23] MEDS: Aspirin EC Low Dose* 81 MG TAB.EC PO SCH (09:51)
[2016-10-23] MEDS: Atorvastatin* 20 MG TAB PO SCH (09:51)
[2016-10-23] MEDS: Atenolol TAB* 25 MG PO SCH (09:51)
[2016-10-23] MEDS: Insulin LISPRO* 1 UNITS UNIT SUBCUT SCH ×2 (09:53→15:18)
[2016-10-23] MEDS: Clotrimazole/Betamethasone CREAM* 15 GM TOPICAL SCH (09:56)
[2016-10-23] MEDS: POTASSIUM CITRATE PO SCH ×2 (10:20→15:30)
[2016-10-23] MEDS: [UNRECOGNIZED DRUG - OTHER] PO SCH ×2 (10:20→15:30)
[2016-10-23] MEDS: Acetaminophen TAB* 325 MG PO PRN (12:55)
[2016-10-23 15:22] VITALS: BP 139/70
== END 2016-10-23 17:25 | disposition home or self-care (01) | DRG 871 ==
LOC: ED 22:50 → MEDTELE 10-19 00:40 → ICU 10-19 19:40 → MEDTELE 10-21 11:49
PROVIDERS: ADMIT Internal Medicine; ATTEND Internal Medicine
DX: A41.9 Sepsis, unspecified organism (principal); J96.01 Acute respiratory failure with hypoxia; I48.91 Unspecified atrial fibrillation; E11.22 Type 2 diabetes mellitus with diabetic chronic kidney disease; I13.10 Hypertensive heart and chronic kidney disease without heart failure, with stage 1 through stage 4 chronic kidney disease, or unspecified chronic kidney disease; E11.51 Type 2 diabetes mellitus with diabetic peripheral angiopathy without gangrene; G40.909 Epilepsy, unspecified, not intractable, without status epilepticus; Z68.43 Body mass index [BMI] 50.0-59.9, adult; E03.9 Hypothyroidism, unspecified; E78.00 Pure hypercholesterolemia, unspecified; Z96.611 Presence of right artificial shoulder joint; Z96.653 Presence of artificial knee joint, bilateral; M19.90 Unspecified osteoarthritis, unspecified site; F32.9 Major depressive disorder, single episode, unspecified; I25.10 Atherosclerotic heart disease of native coronary artery without angina pectoris; H40.9 Unspecified glaucoma; H54.8 Legal blindness, as defined in USA; H91.93 Unspecified hearing loss, bilateral; G43.909 Migraine, unspecified, not intractable, without status migrainosus; Z90.710 Acquired absence of both cervix and uterus; Z90.49 Acquired absence of other specified parts of digestive tract; Z88.2 Allergy status to sulfonamides; Z88.8 Allergy status to other drugs, medicaments and biological substances; Z87.442 Personal history of urinary calculi; Z88.1 Allergy status to other antibiotic agents; Z91.040 Latex allergy status; Z72.89 Other problems related to lifestyle; Z86.711 Personal history of pulmonary embolism; Z97.4 Presence of external hearing-aid; Z98.42 Cataract extraction status, left eye; Z83.3 Family history of diabetes mellitus; Z98.41 Cataract extraction status, right eye; Z82.49 Family history of ischemic heart disease and other diseases of the circulatory system; I25.2 Old myocardial infarction; E66.01 Morbid (severe) obesity due to excess calories; I34.0 Nonrheumatic mitral (valve) insufficiency; I87.8 Other specified disorders of veins; N18.9 Chronic kidney disease, unspecified
CPT/HCPCS: 36415; 71020; 71250; 74176; 80048; 80053; 80202; 81003; 81015; 82550; 83036; 83605; 83735; 83880; 84100; 84443; 84484; 85025; 85379; 85610; 85652; 86038; 86140; 86618; 87040; 87070; 87077; 87086; 87186; 87205; 87640; 87641; 87899; 93005; 93306; 94640; 94760; A9270-GY; J0456; J0692; J0696; J1650; J2270; J2405; J2920; J2930; J3370

== ENCOUNTER 2016-11-22 16:46 | Inpatient (IN) | payer MEDICARE ==
[2016-11-22] MEDS ORDERED: NS 0.9% 1000 ML* 1,000 ML IV ONE (17:20)
[2016-11-22 18:42] LABS: Hematocrit 39 % (35-47); Hemoglobin 12.7 g/dl (12.0-16.0); Mean Corpuscular HGB Conc 33 g/dl (31-36); Mean Corpuscular Hemoglobin 28 pg (27-31); Mean Corpuscular Volume 86 fL (80-97); Mean Platelet Volume 8 um3 (7.4-10.4); Red Blood Count 4.51 10^6/ul (4.0-5.4); Red Cell Distribution Width 20 % (10.5-15); White Blood Count 11.6 10^3/ul (3.5-10.8)
[2016-11-22 19:00] LABS: Albumin 3.9 g/dL (3.2-5.2); BUN/Creatinine Ratio 23.8 (8-20); C Reactive Protein 15.76 mg/L (< 5.00); Calcium 9.6 mg/dL (8.6-10.3); EGFR African American 45.2 (>60); EGFR Non-African American 35.1 (>60); Globulin 4.1 g/dL (2-4); Total Bilirubin 0.4 mg/dL (0.2-1.0)
[2016-11-22] MEDS ORDERED: Zosyn per Pharmacy* NOTE FOLLOW UP SCH (20:00)
--- NOTE | 2016-11-22 20:27 | RAD ---
INDICATION: Urinary tract infection, history of pyelonephritis. COMPARISON: Comparison is made with a prior renal ultrasound from September 16, [address] of the abdomen and pelvis from October 19, 2016. TECHNIQUE: Multiple real-time images of the kidneys were obtained. FINDINGS: The kidneys are normal in size shape and echogenicity. The right kidney measured 11.9 x 4.7 x 6.1 cm and the left kidney measured 11.8 x 5.9 x 5.6 cm. There is a ureteral stent in place which is partially visualized. There is mild prominence of the right renal collecting system which is less prominent than on the prior ultrasound study. There has been interval resolution of the left hydronephrosis. The urinary bladder was empty and therefore we were unable to obtain ureteral jets. IMPRESSION: 1. INTERVAL RESOLUTION OF LEFT HYDRONEPHROSIS, STATUS POST PLACEMENT OF A URETERAL STENT CATHETER. 2. FINDINGS SUGGESTIVE OF MILD RIGHT HYDRONEPHROSIS IMPROVED FROM THE PRIOR STUDY.
[2016-11-22] MEDS: NS 0.9% 1000 ML* 1,000 ML IV SCH (21:00)
[2016-11-22 21:16] LABS: Budding Yeast Present (Absent); Urine Bacteria 1+ (Absent); Urine Bilirubin Negative (Negative); Urine Glucose Negative (Negative); Urine Nitrite Positive (Negative)
[2016-11-22] MEDS: Acetaminophen TAB* 325 MG PO PRN (21:57)
[2016-11-22] MEDS: Nystatin TOP POWDER* 15 GM BTL TOPICAL SCH (21:59)
[2016-11-22] MEDS: POTASSIUM CITRATE PO SCH (22:22)
[2016-11-22] MEDS: Phenazopyridine TAB* 100 MG PO SCH (22:25)
[2016-11-22] MEDS: Warfarin TAB(*) 7.5 MG PO SCH (22:25)
[2016-11-22] MEDS: PTO: Brimonidine P 0.1%(NF) 1 DROP BTL BOTH EYES SCH (22:25)
--- NOTE | 2016-11-23 00:01 | HP ---
CC: Dr. Popeye Rojo * HISTORY AND PHYSICAL: DATE OF ADMISSION: 11/22/16 PRIMARY CARE PROVIDER: Dr. Popeye Rojo. ATTENDING PHYSICIAN: Dr. Mc Robles * (dictated by Linda Kee NP) CHIEF COMPLAINT: Urinary tract infection. HISTORY OF PRESENT ILLNESS: Ms. Zhao is a 71-year-old female with past medical history significant for pyelonephritis, kidney stones, chronic kidney disease, hypothyroidism, hypertension, legally blind, status post demand- mediated NSTEMI in the setting of sepsis in May of 2016, pulmonary embolus , seizure disorder, coronary artery disease, and depression, who presents to the emergency room after being referred by her primary care provider, Dr. Osborn, for urinary tract infection that was not responding to outpatient oral antibiotics. The patient states that she has been in her usual health. She denies any fever, chills, chest pain, shortness of breath, nausea, vomiting , or diarrhea. She does endorse dysuria and urinary urgency. She states that she was started on Augmentin as an outpatient by Dr. Osborn on 11/14/16. She is due to complete her oral antibiotics tomorrow. The patient presented to the emergency room for further evaluation of her symptoms. While in the emergency room, the patient had labs significant for an elevated white blood cell count of 11.6, elevated BUN of 35, and elevated creatinine of 1.47; this appears to be close to her baseline. Hospitalists were asked to evaluate the patient for admission. PAST MEDICAL HISTORY: 1. Pyelonephritis. 2. Bilateral hydronephrosis. 3. Kidney stones. 4. Chronic kidney disease, stage 3. 5. Hypothyroidism. 6. Legally blind. 7. Demand-mediated NSTEMI. 8. Pulmonary embolus. 9. Coronary artery disease. 10. Seizure disorder. 11. Depression. PAST SURGICAL HISTORY: 1. Status post bilateral cataract extractions, the right eye in 1970 and the left eye in 1989. 2. Status post cholecystectomy. 3. Status post hysterectomy. 4. Status post bilateral knee replacements. 5. Status post right elbow ORIF. 6. Status post right shoulder replacement. HOME MEDICATIONS: Include: 1. Warfarin 7.5 mg oral daily. 2. Sodium chloride 2% ophthalmic solution 1 drop to both eyes every 4 hours as needed for dry eyes. 3. Potassium citrate 15 mEq oral twice daily. 4. Multivitamin 1 tablet oral every morning. 5. Synthroid 25 mcg oral every morning. 6. Bumex 1 mg oral every morning. 7. Alphagan P 0.1% one drop to both eyes twice daily. 8. Atorvastatin 20 mg oral every morning. 9. Atenolol 50 mg oral every morning. 10. Aspirin 81 mg oral every morning. 11. Augmentin 875 mg oral twice daily. ALLERGIES: LEVAQUIN, SULFA, GENERIC LEVOTHYROXINE, and LATEX. FAMILY HISTORY: The patient denies any family history of coronary artery disease. Her father had a history of diabetes mellitus. Her father also had a history of leukemia. SOCIAL HISTORY: The patient denies tobacco or recreational drug use. She rarely drinks alcohol. She is retired. She is , lives with her . Her , Bernabe Zhao, will be her surrogate decision maker in the event she is unable to make decisions for herself. REVIEW OF SYSTEMS: I performed a 14-point review of systems. All the pertinent positives and negatives are mentioned in the history of present illness. The remaining review of systems is negative. PHYSICAL EXAMINATION GENERAL APPEARANCE: The patient is alert, pleasant, appears to be in no acute distress. VITAL SIGNS: Temperature 98.8, heart rate 84, respiratory rate 16, O2 sat 97% on room air, blood pressure 130/70. HEENT: Normocephalic, atraumatic. Extraocular movements are intact. RESPIRATORY: There is no accessory muscle use and lungs are clear to auscultation bilateral. CARDIOVASCULAR: Regular rate and rhythm. S1 and S2 present. There are no murmurs, rubs, or gallops heard. ABDOMEN: Soft, nontender, and nondistended. There are bowel sounds present x4. EXTREMITIES: There is no lower extremity edema. There is 2+ bilateral lower extremity edema. DP and PT pulses are 2+ and symmetric. MUSCULOSKELETAL: There is no clubbing or cyanosis noted. The patient exhibits good strength in all extremities. NEUROLOGIC: The patient is alert and oriented x4. Cranial nerves II through XII are grossly intact. PSYCHOLOGICAL: The patient is calm and cooperative. SKIN: The patient has mild discoloration to bilateral shins and mild weeping edema in her right lower extremity. DIAGNOSTIC STUDIES/LAB DATA: Sodium 138, potassium 4.0, chloride 103, CO2 27, BUN 35, creatinine 1.47, glucose 139. White blood cell count 11.6, hemoglobin 12.7, hematocrit 39, and platelet count 299. CRP of 15.76. IMPRESSION: Ms. Zhao is a 71-year-old female with past medical history significant for pyelonephritis; hydronephrosis; kidney stones; chronic kidney disease, stage 3; hypertension; hypothyroidism; demand-mediated myocardial infarction; pulmonary embolus, who presents to the emergency room after being referred by Dr. Osborn for a urinary tract infection that has failed outpatient treatment. She will be admitted as an observation for urinary tract infection and IV antibiotics. ASSESSMENT AND PLAN: 1. Urinary tract infection. On 11/14/16, the patient had a UA done at Dr. Osborn's office growing Proteus mirabilis. The patient has been treated with oral Augmentin at home. She was afebrile. She endorses dysuria and urinary frequency. It is felt that she is not improving on the outpatient oral antibiotics and requires IV antibiotics. She will be placed on Zosyn with the plan to have her stent removed by Dr. Osborn on Friday. We will also get a renal ultrasound to evaluate for the possibility of hydronephrosis. 2. Chronic kidney disease. The patient appears to be near her baseline. We will continue to monitor. 3. Hypertension. The patient will be continued on her home atenolol. 4. Coronary artery disease. The patient will be continued on her home atenolol , atorvastatin, and aspirin. 5. History of pulmonary embolus. The patient will be continued on her home warfarin. We will check an INR in the morning to make sure that she is therapeutic. Her last INR was on 10/23/16, at which time she was therapeutic. 6. Seizure disorder. Not an active problem. The patient is currently not on any antiepileptics. 7. Depression. Not a current problem. The patient is no longer on medications at this time. 8. Hypothyroidism. The patient's last TSH was 1.18 on 10/19/16. She will be continued on her home dose of levothyroxine. 9. Fluids, electrolytes and nutrition. The patient will be on a regular diet. She will be n.p.o. after midnight on Friday. 10. Code status. Full code. 11. DVT prophylaxis. The patient is at highest risk and will be continued on her home warfarin. 12. Disposition. Inpatient. TIME SPENT: Time for this admission was approximately 60 minutes, greater than half of that was spent with the patient and discussing medications, past medical history, and events leading up to her arrival today and performing a physical examination. The case was then reviewed with the attending, Dr. Robles, who agrees with the plan of care. Reviewed by GOLDEN GOMEZ 11/23/16 1847 [id number]/[facility] #: [id number] ANTHONY
[2016-11-23] MEDS: ZOSYN 3.375 GM Q8H per EXTENDED INFUSION IVPB SCH ×8 (00:09→21:29)
[2016-11-23] MEDS: Levothyroxine TAB* 50 MCG TAB PO SCH (06:07)
[2016-11-23 06:30] LABS: Hematocrit 34 % (35-47); Hemoglobin 10.9 g/dl (12.0-16.0); Mean Corpuscular HGB Conc 32 g/dl (31-36); Mean Corpuscular Hemoglobin 28 pg (27-31); Mean Corpuscular Volume 86 fL (80-97); Mean Platelet Volume 9 um3 (7.4-10.4); Red Blood Count 3.94 10^6/ul (4.0-5.4); Red Cell Distribution Width 19 % (10.5-15); White Blood Count 7.4 10^3/ul (3.5-10.8)
[2016-11-23 07:01] LABS: BUN/Creatinine Ratio 21.1 (8-20); Calcium 8.6 mg/dL (8.6-10.3); EGFR African American 45.2 (>60); EGFR Non-African American 35.1 (>60)
[2016-11-23] MEDS: NS 0.9% 1000 ML* 1,000 ML IV SCH (07:13)
[2016-11-23] MEDS ORDERED: Enoxaparin(*) 100 MG/ML SYR SUBCUT SCH (08:00)
[2016-11-23] MEDS ORDERED: Enoxaparin(*) 40 MG/0.4 ML SYR SUBCUT SCH (08:00)
--- NOTE | 2016-11-23 08:02 | PN ---
Subjective Date of Service: 11/23/16 Interval History: Patient seen this morning. Still reports some dysuria and sensation that she needs to strain to urinate. No fever or flank pain. Frustrated that her IV infiltrated as she is a difficult stick. Family History: Unchanged from Admission Social History: Unchanged from Admission Past Medical History: Unchanged from Admission Objective Active Medications: Acetaminophen (Tylenol Tab*) 650 mg PO Q4H PRN Aspirin (Aspirin Ec Low Dose*) 81 mg PO QAM [facility] Atenolol (Tenormin Tab*) 50 mg PO QAM J[facility] Atorvastatin Calcium (Lipitor*) 20 mg PO QAM [facility] Brimonidine Tartrate (Alphagan P 0.1% (Nf)) 1 drop BOTH EYES BID [facility] Bumetanide (Bumex Tab*) 1 mg PO QAM [facility] Enoxaparin Sodium (Lovenox(*)) 140 mg SUBCUT Q12H [facility] Piperacillin Sod/Tazobactam (Sod 3.375 gm/ Sodium Chloride) 100 mls @ 25 mls/ hr IVPB Q8H [facility] Sodium Chloride (Ns 0.9% 1000 Ml*) 1,000 mls @ 100 mls/hr IV PER RATE [facility] Levothyroxine Sodium (Synthroid Tab*) 25 mcg PO 0600 [facility] Multivitamins/Minerals (Theragran/Minerals Tab*) 1 tab PO QAM [facility] Non-Formulary Medication (Potassium Citrate (Alkalinizer [Urocit-K 15]) 15 meq PO BID [facility] Nystatin (Nystatin Top Powder*) 1 applic TOPICAL TID [facility] Pharmacy Consult (Zosyn Per Pharmacy*) 1 note FOLLOW UP .ZOSYN PER PHARMACY JN Phenazopyridine HCl (Pyridium Tab*) 100 mg PO TID JN Sodium Chloride (Hypertonic) (Karolina 128 Opth 2% Ale*) 1 drop BOTH EYES Q4H PRN Warfarin Sodium (Coumadin Tab(*)) 7.5 mg PO DAILY@1700 [facility] Vital Signs 11/22/16 11/22/16 11/22/16 19:48 20:25 20:46 Temperature 98.8 F 98.0 F 98.0 F Pulse Rate 84 83 87 Respiratory 16 18 18 Rate Blood Pressure 130/70 142/58 142/58 (mmHg) O2 Sat by Pulse 97 96 96 Oximetry 11/22/16 11/23/16 11/23/16 22:29 00:05 00:13 Temperature 98.3 F Pulse Rate 85 85 Respiratory 16 16 Rate Blood Pressure 106/50 (mmHg) O2 Sat by Pulse 97 97 Oximetry 11/23/16 03:22 Temperature 97.5 F Pulse Rate 79 Respiratory 20 Rate Blood Pressure 132/63 (mmHg) O2 Sat by Pulse 98 Oximetry Oxygen Devices in Use Now: None Appearance: Elderly, F, sitting in chair in NAD Eyes: No Scleral Icterus Ears/Nose/Mouth/Throat: Mucous Membranes Moist Neck: NL Appearance and Movements; NL JVP Respiratory: Symmetrical Chest Expansion and Respiratory Effort, Clear to Auscultation Cardiovascular: NL Sounds; No Murmurs; No JVD, RRR Abdominal: - - Obese, soft, NTND, BS+, no flank pain Lymphatic: No Cervical Adenopathy Extremities: - - Mild LE edema, chronic LE skin changes Skin: No Rash or Ulcers Neurological: Alert and Oriented x 3 Result Diagrams: 11/23/16 06:17 11/23/16 06:17 Assess/Plan/Problems-Billing Assessment: UTI in a 71 yo F with hx of recurrent nephrolithiasis/hydronephrosis, pyelonephritis, HTN, hypothyroidism, PE on coumadin, CKD3 - Patient Problems (1) UTI (urinary tract infection) Current Visit: Yes Comment: UCx growing proteus from 11/14. Apparently symptoms initially improved but then recurred on outpatient Augmentin. Continue IV Zosyn for now. Plan for L ureteral stent removal on 11/[address] Osborn. (2) History of pulmonary embolus (PE) Current Visit: No Comment: INR subtherapeutic. Will start therapeutic Lovenox bridge and continue coumadin. (3) CAD (coronary artery disease) Current Visit: No Comment: Continue ASA and statin. Had LHC without stenting in 2012 in [place] (4) HTN (hypertension) Current Visit: No Comment: Continue home Atenolol (5) Hypothyroidism Current Visit: No Comment: Continue synthroid (allergy to levothyroxine noted) (6) DVT prophylaxis Current Visit: No Comment: Coumadin Status and Disposition: Inpatient for IV ABx, stent removal
[2016-11-23] MEDS: PTO: Brimonidine P 0.1%(NF) 1 DROP BTL BOTH EYES SCH ×2 (09:00→21:06)
[2016-11-23] MEDS: Sodium Chloride 2% OPTH.SOL* 15 ML BTL BOTH EYES PRN (09:00)
[2016-11-23] MEDS: Multivitamins/Minerals TAB PO SCH (09:07)
[2016-11-23] MEDS: POTASSIUM CITRATE PO SCH ×2 (09:07→21:10)
[2016-11-23] MEDS: Phenazopyridine TAB* 100 MG PO SCH ×3 (09:07→21:05)
[2016-11-23] MEDS: Acetaminophen TAB* 325 MG PO PRN ×2 (09:07→17:01)
[2016-11-23] MEDS: Bumetanide TAB* 1 MG PO SCH (09:08)
[2016-11-23] MEDS: Atenolol TAB* 50 MG PO SCH (09:08)
[2016-11-23] MEDS: Aspirin EC Low Dose* 81 MG TAB.EC PO SCH (09:08)
[2016-11-23] MEDS: Atorvastatin* 20 MG TAB PO SCH (09:08)
[2016-11-23] MEDS: Enoxaparin(*) 150 MG/ML 1 ML SYRINGE SUBCUT SCH ×2 (09:09→21:00)
[2016-11-23] MEDS: Nystatin TOP POWDER* 15 GM BTL TOPICAL SCH ×3 (09:09→21:01)
[2016-11-23] MEDS ORDERED: Lidocaine 1%* 5 ML VIAL INJ ONE (09:16)
--- NOTE | 2016-11-23 13:10 | ED ---
Raudel Maki Nikita, scribed for Maurice Alexander MD on 11/22/16 at 1814 . GI/ HPI - HPI Summary HPI Summary: Pt is a 71 y/o F presenting to the ED after being referred by Dr. Osborn for admission. Pt reports she has been receiving Tx for an infection after being evaluated by Dr. Osborn 8 days ago for a routine check up where he found WBC in a urine sample. She is having her stent removed in 3 days (on Friday) and admission is requested for IV Abx. Pt has been taking Augmentin to treat the infection, though her symptoms of urinary frequency and dysuria persist. Additionally complaints of mild ROBB secondary to decreased PO intake. - History of Current Complaint Chief Complaint: EDUrogenitalProblems Time Seen by Provider: 11/22/16 17:20 Stated Complaint: POSSIBLE INFECTION Hx Obtained From: Patient Hx Last Menstrual Period: N/A Onset/Duration: Still Present Current Severity: Mild - ROBB Pain Intensity: 2 Associated Signs and Symptoms: Positive: Dysuria Aggravating Factor(s): Nothing Alleviating Factor(s): Nothing - Additional Pertinent History Primary Care Physician: [id number] - Allergy/Home Medications Allergies/Adverse Reactions: Allergies Allergy/AdvReac Type Severity Reaction Status Date / Time Levofloxacin [From Levaquin] Allergy Severe Anaphylatic Verified 11/22/16 16:59 Shock Latex Allergy Intermediate ITCHY Verified 11/22/16 16:59 PIMPLE LIKE RASH Sulfa Drugs Allergy Intermediate Hives Verified 11/22/16 16:59 Levothyroxine Allergy Mild Rash And Verified 11/22/16 16:59 Itching PMH/Surg Hx/FS Hx/Imm Hx Endocrine/Hematology History: Reports: Hx Diabetes - borderline DM, Hx Thyroid Disease - hypothyroidism Cardiovascular History: Reports: Hx Coronary Artery Disease, Hx Deep Vein Thrombosis, Hx Embolism - multiple PEs, Hx Hypercholesterolemia, Hx Hypertension , Hx Peripheral Vascular Disease, Other Cardiovascular Problems/Disorders - cardiac cath Respiratory History: Reports: Hx Pulmonary Embolism - POST OP AFTER SHOULDER REPLACEMENT 2012, 2014 Denies: Hx Asthma, Hx Chronic Obstructive Pulmonary Disease (COPD) GI History: Denies: Hx Ulcer, Other GI Disorders History: Reports: Hx Kidney Infection, Hx Kidney Stones - left, Hx Renal Disease - BILAT STENT EXCHANGE 07/31/16, Other Problems/Disorders - Kidney stones July 2011 Denies: Hx Dialysis Musculoskeletal History: Reports: Hx Arthritis, Other Musculoskeletal History - Bilateral knee replacements, R shoulder replacement, fractured R elbow Sensory History: Reports: Hx Cataracts, Hx Contacts or Glasses, Hx Glaucoma, Hx Legally Blind, Hx Vision Problem - Pt is legally blind, Hx Hearing Aid - bilat, Hx Hearing Problem, Other Sensory Impairments Opthamlomology History: Reports: Hx Cataracts, Hx Contacts or Glasses, Hx Glaucoma, Hx Legally Blind, Hx Vision Problem - Pt is legally blind, Other Sensory Impairments Neurological History: Reports: Hx Migraine - Hx of none recently, Hx Seizures - Hx of, none recently, Other Neuro Impairments/Disorders - Hx seizures, none recently Psychiatric History: Reports: Hx Autism Denies: Hx Anxiety, Hx Depression - Cancer History Hx Chemotherapy: No Hx Radiation Therapy: No - Surgical History Surgery Procedure, Year, and Place: Hysterectomy September 2014, 1970 R eye cataract removed, 1989 L eye cataract removed, bilateral knee replacements, R shoulder replacement, 2011 cholecystectomy, plate/screws in R elbow, kidney stone treatment x 3 august 09 kidney stones remover and litho. done on others bilaterly. Hx Anesthesia Reactions: Yes - GFDS Infectious Disease History: Denies: Hx Hepatitis, Hx Human Immunodeficiency Virus (HIV), Traveled Outside the [place] in Last 30 Days Comment Only: History Other Infectious Disease - kidney infection - Family History Known Family History: Positive: Cardiac Disease, Hypertension - Social History Alcohol Use: Rare Alcohol Amount: 3-4 PER YEAR Substance Use Type: Reports: None Hx Tobacco Use: No Smoking Status (MU): Never Smoked Tobacco Have You Smoked in the Last Year: No Review of Systems Positive: dysuria, frequency Positive: Headache - mild ROBB secondary to decreased PO intake All Other Systems Reviewed And Are Negative: Yes Physical Exam Triage Information Reviewed: Yes Vital Signs On Initial Exam: Initial Vitals Temp Pulse Resp BP Pulse Ox 98.5 F 84 16 126/58 99 11/22/16 16:59 11/22/16 16:59 11/22/16 16:59 11/22/16 16:59 11/22/16 16:59 Vital Signs Reviewed: Yes Appearance: Positive: Well-Appearing, No Pain Distress Skin: Positive: Warm, Skin Color Reflects Adequate Perfusion, Dry Head/Face: Positive: Normal Head/Face Inspection Eyes: Positive: Normal ENT: Positive: Normal ENT inspection Neck: Positive: Supple, Nontender Respiratory/Lung Sounds: Positive: Clear to Auscultation, Breath Sounds Present Cardiovascular: Positive: RRR Abdomen Description: Positive: Nontender, Soft Bowel Sounds: Positive: Present Musculoskeletal: Positive: Other - Mild bilateral LE swelling Neurological: Positive: Normal Psychiatric: Positive: Normal, Affect/Mood Appropriate Diagnostics - Vital Signs Vital Signs Temp Pulse Resp BP Pulse Ox 11/22/16 16:59 98.5 F 84 16 126/58 99 - Laboratory Lab Results: Lab Results 11/22/16 11/22/16 Range/Units 18:35 18:35 WBC 11.6 H (3.5-10.8) 10^3/ul RBC 4.51 (4.0-5.4) 10^6/ul Hgb 12.7 (12.0-16.0) g/dl Hct 39 (35-47) % MCV 86 (80-97) fL MCH 28 (27-31) pg MCHC 33 (31-36) g/dl RDW 20 H (10.5-15) % Plt Count 299 (150-450) 10^3/ul MPV 8 (7.4-10.4) um3 Neut % (Auto) 75.6 (38-83) % Lymph % (Auto) 15.1 L (25-47) % Bradley % (Auto) 6.9 (1-9) % Eos % (Auto) 1.4 (0-6) % Baso % (Auto) 1.0 (0-2) % Absolute Neuts (auto) 8.7 H (1.5-7.7) 10^3/ul Absolute Lymphs (auto) 1.7 (1.0-4.8) 10^3/ul Absolute Monos (auto) 0.8 (0-0.8) 10^3/ul Absolute Eos (auto) 0.2 (0-0.6) 10^3/ul Absolute Basos (auto) 0.1 (0-0.2) 10^3/ul Absolute Nucleated RBC 0 10^3/ul Nucleated RBC % 0 Sodium 138 (133-145) mmol/L Potassium 4.0 (3.5-5.0) mmol/L Chloride 103 (101-111) mmol/L Carbon Dioxide 27 (22-32) mmol/L Anion Gap 8 (2-11) mmol/L BUN 35 H (6-24) mg/dL Creatinine 1.47 H (0.51-0.95) mg/dL Est GFR ( Amer) 45.2 (>60) Est GFR (Non-Af Amer) 35.1 (>60) BUN/Creatinine Ratio 23.8 H (8-20) Glucose 139 H (70-100) mg/dL Calcium 9.6 (8.6-10.3) mg/dL Total Bilirubin 0.40 (0.2-1.0) mg/dL AST 14 (13-39) U/L ALT 14 (7-52) U/L Alkaline Phosphatase 67 (34-104) U/L C-Reactive Protein 15.76 H (< 5.00) mg/L Total Protein 8.0 (6.4-8.9) g/dL Albumin 3.9 (3.2-5.2) g/dL Globulin 4.1 H (2-4) g/dL Albumin/Globulin Ratio 1.0 (1-3) Result Diagrams: 11/23/16 06:17 11/23/16 06:17 Lab Statement: Any lab studies that have been ordered have been reviewed, and results considered in the medical decision making process. GIGU Course/Dx - Diagnoses Provider Diagnoses: UTI (urinary tract infection), Complication of urinary stent - Physician Notifications Discussed Care Of Patient With: Ashley Azar Time Discussed With Above Provider: 18:50 Instructed by Provider To: Other - Accepted pt for admission. Discharge - Discharge Plan Condition: Stable Disposition: ADMITTED TO [facility] documentation as recorded by the Raudel whyte Nikita accurately reflects the service I personally performed and the decisions made by Benjamin hendrickson Richard L, MD.
--- NOTE | 2016-11-23 14:02 | CONS ---
CONSULTATION NOTE: DATE OF CONSULTATION: 11/23/16 LOCATION: The patient is I think on the 3rd floor. HISTORY OF PRESENT ILLNESS: Ms. Zhao is a 71-year-old white female who had a history of bilateral renal calculi and had required multiple procedures in the past for stone extractions. At the present time, she is stone free on the right side and that she has 2 residual left renal calculi measuring about 5 mm each and are non-obstructing. In her admission in May 2016, the patient developed spontaneous left retroperitoneal hematoma. She has been on anticoagulation because of history of DVT and pulmonary embolism. She had a stormy course in the ICU and ultimately did well. She had a left ureteral stent at that time. Following left ureteroscopy, and extraction of the stones and placement of a left ureteral stent, the patient developed recurrence of the left hydronephrosis. A noncontrast CT showed the kidney to be dilated, but there were no calculi noted in the left ureter to explain her obstruction. Because of her progression into pyelonephritis, she had a placement of a left ureteral stent on 10/09/16. During the procedure, it was noted that there was partial narrowing of the left ureter, which was felt to be secondary to compression or possible fibrosis from the left retroperitoneal hematoma. The patient has a stent in place since that time. The plan was to remove the stent under antibiotics coverage and to watch closely for possible recurrence of the hydronephrosis and for possible pyelonephritis. A catheterized urine culture was done last week and it grew proteus that was sensitive to BACTRIM and to QUINOLONES as the only 2 oral antibiotics. The patient; however, had allergic reaction to both of these antibiotics. Yesterday , she started having symptoms of cystitis with urgency, frequency, and burning on urination, but she did not have any flank pain, fever or chills. I recommended that the patient be admitted for IV antibiotics in the form of Zosyn. The plan is to keep her on the IV antibiotics for about 3 days to control the infection. The stent will then be removed while she is on IV antibiotic coverage and she will be observed for an extra day for possible occurrence of a pyelonephritis. I discussed above plans with the hospital service as well as with the patient. She was admitted yesterday and started on IV Zosyn. The plan is to perform a cystoscopy under local anesthesia and to remove her stent under local anesthesia in 2 days. [id number]/[facility] #: [id number] ANTHONY
[2016-11-23] MEDS: Warfarin TAB(*) 7.5 MG PO SCH (17:01)
[2016-11-24] MEDS: ZOSYN 3.375 GM Q8H per EXTENDED INFUSION IVPB SCH ×6 (05:04→20:54)
[2016-11-24] MEDS: Levothyroxine TAB* 50 MCG TAB PO SCH (05:47)
[2016-11-24] MEDS: Enoxaparin(*) 150 MG/ML 1 ML SYRINGE SUBCUT SCH ×4 (08:52→21:01)
--- NOTE | 2016-11-24 08:52 | PN ---
Subjective Date of Service: 11/24/16 Interval History: Patient seen this morning. No new complaints. Still feels dysuria and has to strain to urinate. No fever or chills. Eating and drinking well. Unfortunately has had multiple IVs infiltrate. Family History: Unchanged from Admission Social History: Unchanged from Admission Past Medical History: Unchanged from Admission Objective Active Medications: Acetaminophen (Tylenol Tab*) 650 mg PO Q4H PRN Aspirin (Aspirin Ec Low Dose*) 81 mg PO QAM [facility] Atenolol (Tenormin Tab*) 50 mg PO QAM [facility] Atorvastatin Calcium (Lipitor*) 20 mg PO QAM [facility] Brimonidine Tartrate (Alphagan P 0.1% (Nf)) 1 drop BOTH EYES BID JN Bumetanide (Bumex Tab*) 1 mg PO QAM [facility] Enoxaparin Sodium (Lovenox(*)) 140 mg SUBCUT Q12HR [facility] Piperacillin Sod/Tazobactam (Sod 3.375 gm/ Sodium Chloride) 100 mls @ 25 mls/ hr IVPB 0400,1200,2000 [facility] Levothyroxine Sodium (Synthroid Tab*) 25 mcg PO 0600 [facility] Multivitamins/Minerals (Theragran/Minerals Tab*) 1 tab PO QAM [facility] Non-Formulary Medication (Potassium Citrate (Alkalinizer [Urocit-K 15]) 15 meq PO BID JN Nystatin (Nystatin Top Powder*) 1 applic TOPICAL TID [facility] Pharmacy Consult (Zosyn Per Pharmacy*) 1 note FOLLOW UP .ZOSYN PER PHARMACY JN Phenazopyridine HCl (Pyridium Tab*) 100 mg PO TID JN Sodium Chloride (Hypertonic) (Karolina 128 Opth 2% Ale*) 1 drop BOTH EYES Q4H PRN Warfarin Sodium (Coumadin Tab(*)) 7.5 mg PO DAILY@1700 [facility] Vital Signs 11/23/16 11/23/16 11/23/16 09:18 11:20 15:25 Temperature 98.0 F 98.5 F Pulse Rate 73 77 Respiratory 16 14 15 Rate Blood Pressure 126/64 145/69 (mmHg) O2 Sat by Pulse 98 98 Oximetry 11/24/16 11/24/16 11/24/16 03:37 07:40 07:47 Temperature 97.3 F 97.6 F Pulse Rate 80 73 Respiratory 16 18 13 Rate Blood Pressure 126/35 121/62 (mmHg) O2 Sat by Pulse 98 98 Oximetry Oxygen Devices in Use Now: None Appearance: Elderly, F, laying in bed in NAD Eyes: No Scleral Icterus Ears/Nose/Mouth/Throat: Mucous Membranes Moist Neck: NL Appearance and Movements; NL JVP Respiratory: Symmetrical Chest Expansion and Respiratory Effort, Clear to Auscultation Cardiovascular: NL Sounds; No Murmurs; No JVD, RRR Abdominal: - - Obese, soft, NTND, BS+, no CVA tenderness Lymphatic: No Cervical Adenopathy Extremities: - - Mild LE edema, compression devices in place Skin: No Rash or Ulcers Neurological: Alert and Oriented x 3 Result Diagrams: 11/23/16 06:17 11/23/16 06:17 Additional Lab and Data: Lab Results 11/22/16 11/22/16 Range/Units 18:35 18:35 WBC 11.6 H (3.5-10.8) 10^3/ul RBC 4.51 (4.0-5.4) 10^6/ul Hgb 12.7 (12.0-16.0) g/dl Hct 39 (35-47) % MCV 86 (80-97) fL MCH 28 (27-31) pg MCHC 33 (31-36) g/dl RDW 20 H (10.5-15) % Plt Count 299 (150-450) 10^3/ul MPV 8 (7.4-10.4) um3 Neut % (Auto) 75.6 (38-83) % Lymph % (Auto) 15.1 L (25-47) % [place] % (Auto) 6.9 (1-9) % Eos % (Auto) 1.4 (0-6) % Baso % (Auto) 1.0 (0-2) % Absolute Neuts (auto) 8.7 H (1.5-7.7) 10^3/ul Absolute Lymphs (auto) 1.7 (1.0-4.8) 10^3/ul Absolute Monos (auto) 0.8 (0-0.8) 10^3/ul Absolute Eos (auto) 0.2 (0-0.6) 10^3/ul Absolute Basos (auto) 0.1 (0-0.2) 10^3/ul Absolute Nucleated RBC 0 10^3/ul Nucleated RBC % 0 Sodium 138 (133-145) mmol/L Potassium 4.0 (3.5-5.0) mmol/L Chloride 103 (101-111) mmol/L Carbon Dioxide 27 (22-32) mmol/L Anion Gap 8 (2-11) mmol/L BUN 35 H (6-24) mg/dL Creatinine 1.47 H (0.51-0.95) mg/dL Est GFR ( Amer) 45.2 (>60) Est GFR (Non-Af Amer) 35.1 (>60) BUN/Creatinine Ratio 23.8 H (8-20) Glucose 139 H (70-100) mg/dL Calcium 9.6 (8.6-10.3) mg/dL Total Bilirubin 0.40 (0.2-1.0) mg/dL AST 14 (13-39) U/L ALT 14 (7-52) U/L Alkaline Phosphatase 67 (34-104) U/L C-Reactive Protein 15.76 H (< 5.00) mg/L Total Protein 8.0 (6.4-8.9) g/dL Albumin 3.9 (3.2-5.2) g/dL Globulin 4.1 H (2-4) g/dL Albumin/Globulin Ratio 1.0 (1-3) Microbiology and Other Data: Microbiology 11/23/16 07:53 Blood Culture - Preliminary Blood Venous No Growth Day 1 11/22/16 20:48 Urine Culture - Final Urine Assess/Plan/Problems-Billing Assessment: UTI in a 71 yo F with hx of recurrent nephrolithiasis/hydronephrosis, pyelonephritis, HTN, hypothyroidism, PE on coumadin, CKD3 - Patient Problems (1) UTI (urinary tract infection) Current Visit: Yes Comment: UCx growing proteus from 11/14, repeat UCx this admission with no growth. Apparently symptoms initially improved but then recurred on outpatient Augmentin. Continue IV Zosyn as able as patient is still symptomatic. Unfortunately patient has had numerous IVs infiltrate and is currently without IV access. Spoke with Dr. Odom who does not feel benefits outweigh the risks for CVC placement as patient is anticoagulated. Will have to wait for PICC team tomorrow. Plan for L ureteral stent removal on 11/[address] Osborn. Will ask ID to weigh in tomorrow. (2) History of pulmonary embolus (PE) Current Visit: No Comment: Continue therapeutic Lovenox bridge. Continue coumadin. Check INR tomorrow. (3) CAD (coronary artery disease) Current Visit: No Comment: Continue ASA and statin. Had LHC without stenting in 2012 in [place] (4) HTN (hypertension) Current Visit: No Comment: Continue home Atenolol (5) Hypothyroidism Current Visit: No Comment: Continue synthroid (allergy to levothyroxine noted) (6) DVT prophylaxis Current Visit: No Comment: Coumadin Status and Disposition: Inpatient for IV ABx, stent removal
[2016-11-24] MEDS: Sodium Chloride 2% OPTH.SOL* 15 ML BTL BOTH EYES PRN (09:00)
[2016-11-24] MEDS: Nystatin TOP POWDER* 15 GM BTL TOPICAL SCH ×3 (09:01→21:00)
[2016-11-24] MEDS: Bumetanide TAB* 1 MG PO SCH (09:02)
[2016-11-24] MEDS: Aspirin EC Low Dose* 81 MG TAB.EC PO SCH (09:02)
[2016-11-24] MEDS: Phenazopyridine TAB* 100 MG PO SCH ×3 (09:02→21:01)
[2016-11-24] MEDS: Atorvastatin* 20 MG TAB PO SCH (09:02)
[2016-11-24] MEDS: Multivitamins/Minerals TAB PO SCH (09:02)
[2016-11-24] MEDS: Atenolol TAB* 50 MG PO SCH (09:03)
[2016-11-24] MEDS: PTO: Brimonidine P 0.1%(NF) 1 DROP BTL BOTH EYES SCH ×2 (09:05→21:02)
[2016-11-24] MEDS: POTASSIUM CITRATE PO SCH ×2 (09:18→21:08)
[2016-11-24] MEDS: Warfarin TAB(*) 7.5 MG PO SCH (17:06)
[2016-11-25] MEDS: Acetaminophen TAB* 325 MG PO PRN ×3 (01:45→21:15)
[2016-11-25] MEDS: ZOSYN 3.375 GM Q8H per EXTENDED INFUSION IVPB SCH ×6 (04:08→21:15)
[2016-11-25] MEDS: Levothyroxine TAB* 50 MCG TAB PO SCH (05:02)
[2016-11-25] MEDS: Bumetanide TAB* 1 MG PO SCH (08:06)
[2016-11-25] MEDS: Multivitamins/Minerals TAB PO SCH (08:06)
[2016-11-25] MEDS: PTO: Brimonidine P 0.1%(NF) 1 DROP BTL BOTH EYES SCH ×2 (08:06→21:18)
[2016-11-25] MEDS: Atorvastatin* 20 MG TAB PO SCH (08:06)
[2016-11-25] MEDS: Phenazopyridine TAB* 100 MG PO SCH ×3 (08:06→21:18)
[2016-11-25] MEDS: Aspirin EC Low Dose* 81 MG TAB.EC PO SCH (08:06)
[2016-11-25] MEDS: Atenolol TAB* 50 MG PO SCH (08:06)
[2016-11-25] MEDS: Sodium Chloride 2% OPTH.SOL* 15 ML BTL BOTH EYES PRN (08:10)
[2016-11-25] MEDS: POTASSIUM CITRATE PO SCH ×2 (09:28→21:20)
[2016-11-25] MEDS: Enoxaparin(*) 150 MG/ML 1 ML SYRINGE SUBCUT SCH ×2 (09:31→21:19)
[2016-11-25] MEDS: Nystatin TOP POWDER* 15 GM BTL TOPICAL SCH ×3 (11:29→21:19)
--- NOTE | 2016-11-25 15:37 | PN ---
Subjective Date of Service: 11/25/16 Interval History: Patient seen in the afternoon after PICC placement and stent removal. Patient reports feeling well. Reports urinary symptoms resolved this morning. No fever or chills. Pleased to have PICC line. Family History: Unchanged from Admission Social History: Unchanged from Admission Past Medical History: Unchanged from Admission Objective Active Medications: Acetaminophen (Tylenol Tab*) 650 mg PO Q4H PRN Aspirin (Aspirin Ec Low Dose*) 81 mg PO QAM [facility] Atenolol (Tenormin Tab*) 50 mg PO QAM JN Atorvastatin Calcium (Lipitor*) 20 mg PO QAM [facility] Brimonidine Tartrate (Alphagan P 0.1% (Nf)) 1 drop BOTH EYES BID JN Bumetanide (Bumex Tab*) 1 mg PO QAM [facility] Enoxaparin Sodium (Lovenox(*)) 140 mg SUBCUT Q12HR [facility] Heparin Sodium (Porcine) (Heparin Flush Picc/Ml/Cvc(*)) 1 - 3 ml FLUSH 0600, 1800 [facility] Piperacillin Sod/Tazobactam (Sod 3.375 gm/ Sodium Chloride) 100 mls @ 25 mls/ hr IVPB 0400,1200,2000 [facility] Levothyroxine Sodium (Synthroid Tab*) 25 mcg PO 0600 JN Multivitamins/Minerals (Theragran/Minerals Tab*) 1 tab PO QAM [facility] Non-Formulary Medication (Potassium Citrate (Alkalinizer [Urocit-K 15]) 15 meq PO BID JN Nystatin (Nystatin Top Powder*) 1 applic TOPICAL TID [facility] Pharmacy Consult (Zosyn Per Pharmacy*) 1 note FOLLOW UP .ZOSYN PER PHARMACY JN Phenazopyridine HCl (Pyridium Tab*) 100 mg PO TID [facility] Sodium Chloride (Hypertonic) (Karolina 128 Opth 2% Ale*) 1 drop BOTH EYES Q4H PRN Warfarin Sodium (Coumadin Tab(*)) 7.5 mg PO DAILY@1700 [facility] Vital Signs 11/24/16 11/24/16 11/24/16 15:38 19:15 19:29 Temperature 97.7 F 98.0 F Pulse Rate 76 78 Respiratory 18 18 16 Rate Blood Pressure 139/56 135/63 (mmHg) O2 Sat by Pulse 97 99 Oximetry 11/24/16 11/25/16 11/25/16 23:21 04:54 07:16 Temperature 98.2 F 97.5 F 97.9 F Pulse Rate 83 75 70 Respiratory 20 20 16 Rate Blood Pressure 144/53 130/62 140/59 (mmHg) O2 Sat by Pulse 98 97 96 Oximetry Oxygen Devices in Use Now: None Appearance: Elderly, F, sitting in chair in NAD Eyes: No Scleral Icterus Ears/Nose/Mouth/Throat: Mucous Membranes Moist Neck: NL Appearance and Movements; NL JVP Respiratory: Symmetrical Chest Expansion and Respiratory Effort, Clear to Auscultation Cardiovascular: NL Sounds; No Murmurs; No JVD, RRR Abdominal: NL Sounds; No Tenderness; No Distention, - - Obese Lymphatic: No Cervical Adenopathy Extremities: - - Mild LE edema, compression devices in place Neurological: Alert and Oriented x 3 Lines/Tubes/Other Access: Clean, Dry and Intact PICC Line - RUE Result Diagrams: 11/23/16 06:17 11/23/16 06:17 Microbiology and Other Data: Microbiology 11/23/16 07:53 Blood Culture - Preliminary Blood Venous No Growth Day 1 11/22/16 20:48 Urine Culture - Final Urine Assess/Plan/Problems-Billing Assessment: UTI in a 71 yo F with hx of recurrent nephrolithiasis/hydronephrosis, pyelonephritis, HTN, hypothyroidism, PE on coumadin, CKD3 - Patient Problems (1) UTI (urinary tract infection) Current Visit: Yes Comment: UCx growing proteus from 11/14, repeat UCx this admission with no growth. Apparently symptoms initially improved but then recurred on outpatient Augmentin. Continue IV Zosyn. Stent removed by Dr. Osborn on 11/25, symptoms seem to have resolved. Awaiting ID input. (2) History of pulmonary embolus (PE) Current Visit: No Comment: Continue therapeutic Lovenox bridge. Continue coumadin. INR still subtherapeutic, recheck tomorrow. (3) CAD (coronary artery disease) Current Visit: No Comment: Continue ASA and statin. Had LHC without stenting in 2011 in [place] (4) HTN (hypertension) Current Visit: No Comment: Continue home Atenolol (5) Hypothyroidism Current Visit: No Comment: Continue synthroid (allergy to levothyroxine noted) (6) DVT prophylaxis Current Visit: No Comment: Coumadin Status and Disposition: Inpatient for IV ABx
[2016-11-25] MEDS: Warfarin TAB(*) 7.5 MG PO SCH (17:38)
--- NOTE | 2016-11-26 00:52 | OP ---
DATE OF OPERATION: 11/25/16 - ROOM #335 DATE OF : 47 SURGEON: Agustin Osborn MD ANESTHESIA: Local. PRE-OP DIAGNOSES: 1. Urinary tract infection. 2. Left hydronephrosis. 3. Status post placement, left ureteral stent. POST-OP DIAGNOSES: 1. Urinary tract infection. 2. Left hydronephrosis. 3. Status post placement, left ureteral stent. OPERATIVE PROCEDURE: 1. Cystoscopy. 2. Removal of left ureteral stent. INDICATIONS: Ms. Zhao is a 71-year-old white female who has recurrent bilateral renal calculi. She underwent multiple procedures and, at present, she is stone free on the right side and she has two left renal calculi, less than 5 mm in size each. The patient had placement of a left ureteral stent about 6 weeks ago for left hydronephrosis, which was secondary to partial obstruction of the ureter from retroperitoneal hematoma that she developed in May 2016. The plan was to remove her ureteral stent under antibiotic coverage. Catheterized urine culture last week grew proteus. It was sensitive Levaquin and Bactrim as the only oral antibiotics, and to IV Zosyn . The patient, however, is allergic to both LEVAQUIN and BACTRIM. Four days ago, she started having frequency and urgency, burning on urination but no flank pain, fever or chills. The patient was admitted 3 days ago and started on IV Zosyn. Her voiding symptoms are all resolved. Now, she is brought for left ureteral stent removal under antibiotics coverage. PATHOLOGY: Postvoid residual was minimal by urinary catheterization. At cystoscopy, the bladder mucosa looked normal. There were no changes or cystitis. The ureteral stent was seen coming from the left orifice. DESCRIPTION OF PROCEDURE: The whole procedure was done under no anesthesia. The patient was placed in the lithotomy position and was prepped and draped for a cystoscopy. A 14-red rubber catheter was passed inside the bladder and the bladder was emptied and minimal post-void residual was noted. A flexible cystoscopy was then performed. The stent was removed intact. The patient tolerated the procedure well and left the operating room in good condition. The plan is to observe the patient for left flank pain, fever. She will continue on the IV antibiotics for an extra day. If she remains asymptomatic, she will be discharged home and she will be seen in the office for re- evaluation with a followup renal ultrasound earlier if she develops symptoms of left flank pain or left pyelonephritis. [id number]/[facility] #: [id number] MTDD
[2016-11-26] MEDS: Acetaminophen TAB* 325 MG PO PRN (01:50)
[2016-11-26] MEDS: ZOSYN 3.375 GM Q8H per EXTENDED INFUSION IVPB SCH ×4 (04:36→12:22)
[2016-11-26] MEDS: Levothyroxine TAB* 50 MCG TAB PO SCH (05:43)
[2016-11-26 08:11] VITALS: BP 141/59
[2016-11-26] MEDS: POTASSIUM CITRATE PO SCH (09:30)
[2016-11-26] MEDS: PTO: Brimonidine P 0.1%(NF) 1 DROP BTL BOTH EYES SCH (09:34)
[2016-11-26] MEDS: Bumetanide TAB* 1 MG PO SCH (09:38)
[2016-11-26] MEDS: Phenazopyridine TAB* 100 MG PO SCH ×2 (09:38→14:58)
[2016-11-26] MEDS: Multivitamins/Minerals TAB PO SCH (09:38)
[2016-11-26] MEDS: Sodium Chloride 2% OPTH.SOL* 15 ML BTL BOTH EYES PRN (09:38)
[2016-11-26] MEDS: Atenolol TAB* 50 MG PO SCH (09:38)
[2016-11-26] MEDS: Aspirin EC Low Dose* 81 MG TAB.EC PO SCH (09:38)
[2016-11-26] MEDS: Atorvastatin* 20 MG TAB PO SCH (09:38)
[2016-11-26] MEDS: Enoxaparin(*) 150 MG/ML 1 ML SYRINGE SUBCUT SCH (09:40)
[2016-11-26] MEDS: Nystatin TOP POWDER* 15 GM BTL TOPICAL SCH ×2 (12:21→14:53)
--- NOTE | 2016-11-26 13:41 | DCNOTE ---
Patient seen this morning. Feels well, no dysuria or straining. Anxious to leave. On exam, RRR, s1 and s2 present, no m/g/r, abd obese, soft, NTND, BS+, mild LE edema Appreciate ID assistance, will discharge on 10 days of Augmentin. F/U with Dr. Osborn and Dr. Weathers.
--- NOTE | 2016-11-26 20:50 | CONS ---
CONSULTATION REPORT: DATE OF CONSULT: 11/26/16 REQUESTING PHYSICIAN: Dr. Diamond. CONSULTING SERVICE: Infectious Disease. REASON FOR CONSULT: Dysuria. IMPRESSION: 1. Recent onset of new dysuria. Urine culture, 11/14/16, in the setting of dysuria grew 25,000 to 60,000 colonies of proteus where the urine culture on admission was negative, but was on Augmentin as an outpatient. Her symptoms may have been largely due to left ureteral stent, which was removed, although a ongoing cystitis and stent infection is a consideration as well. 2. Chronic nephrolithiasis, chronic bilateral ureteral stents, most recently just a left ureteral stent. 3. Obesity. 4. Allergy to LEVAQUIN and SULFA. RECOMMENDATION: Augmentin for another 10 days presuming that she had sterilized the urine with Augmentin as an outpatient, but not completely treated the infection. She has followup for another renal ultrasound pending with Dr. Osborn as an outpatient. HISTORY OF PRESENT ILLNESS: This 71-year-old woman with a recent left ureteral stent and dysuria that started mid November. Urine culture grew proteus. She was treated with Augmentin. Initially, her symptoms got better all day and then got worse while she is still taking the medicine. She came to the hospital at Dr. Osborn's recommendation on 11/22/16. She had a white count of 11,000. Her urinalysis showed blood, nitrites, leukocyte esterase. Culture on 11/22/16 was no growth. Blood cultures were negative. She was taken to the OR yesterday for removal of left ureteral stent. She feels well today. No dysuria, fever, abdominal pain, or flank pain. PAST MEDICAL HISTORY: 1. Obesity. 2. Pyelonephritis. 3. Bilateral hydronephrosis and nephrolithiasis at various times with bilateral ureteral stents. 4. Stage 3 chronic kidney disease. 5. Hypothyroidism. 6. Legal blindness. 7. Pulmonary embolus. 8. Coronary artery disease with a history of non-ST elevation NM. 9. Seizure disorder. 10. Depression. PAST SURGICAL HISTORY: 1. Status post bilateral cataract surgeries. 2. Status post cholecystectomy. 3. Status post hysterectomy. 4. Status post bilateral knee arthroplasties. 5. Status post right elbow open reduction and internal fixation. 6. Status post right shoulder replacement. MEDICATIONS: 1. Aspirin. 2. Atenolol. 3. Lipitor. 4. Enoxaparin. 5. Levothyroxine. 6. Zosyn 3.375 g IV every 8 hours. 7. Warfarin. ALLERGIES: To LEVAQUIN, SULFA, GENERIC LEVOTHYROXINE, LATEX. FAMILY HISTORY: No recurrent infections. SOCIAL HISTORY: She lives with her . No travel. REVIEW OF SYSTEMS: All negative to full review of systems except as noted above. PHYSICAL EXAM: Vital Signs: Temperature 37, heart rate 80, respiratory rate 16 , blood pressure 140/50, and O2 sat 96% on room air. In general, she is awake, not in distress. HEENT: There is no conjunctival hemorrhage. Oropharynx is without lesions. Neck is supple. Heart has regular rate and rhythm without murmurs, rubs, or gallops. Lungs are clear to auscultation bilaterally. Abdomen is soft, nontender, and nondistended. There is no flank tenderness to palpation. Skin: There is no rash. LABORATORY DATA: White blood cell count 7, hemoglobin 10, platelets 245. Creatinine 1.4. CRP 15. Please see impressions and recommendations as outlined above, which I have discussed with Dr. Diamond. Thank you for asking me to see Ms. Zhao in consultation. [id number]/[facility] #: [id number] [facility] CENTERAmber
--- NOTE | 2016-11-27 05:02 | DS ---
CC: Dr. Rojo; Dr. Osborn; Dr. Weathers * DISCHARGE SUMMARY: DATE OF ADMISSION: 11/22/16 DATE OF DISCHARGE: 11/26/16 PCP: Dr. Rojo. PRINCIPAL DISCHARGE DIAGNOSES: 1. Urinary tract infection. 2. Left ureteral stent removal. SECONDARY DIAGNOSES: 1. Recurrent nephrolithiasis. 2. Pyelonephritis. 3. Bilateral hydronephrosis. 4. Chronic kidney disease 3. 5. Hypothyroidism. 6. Legally blind. 7. Demand-mediated non-ST elevation myocardial infarction. 8. Pulmonary embolus. 9. Coronary artery disease. 10. Seizure disorder. 11. Depression. DISCHARGE MEDICATION REGIMEN: 1. Augmentin 875 mg by mouth 2 times daily x10 days. 2. Potassium citrate 15 mEq by mouth 2 times daily. 3. Warfarin 7.5 mg by mouth daily. 4. Aspirin 81 mg by mouth daily. 5. Atenolol 50 mg by mouth daily. 6. Atorvastatin 20 mg by mouth daily. 7. Bumex 1 mg by mouth daily. 8. Brimonidine 1 drop in both eyes 2 times daily. 9. Synthroid 25 mcg by mouth daily. 10. Sodium chloride 1 drop in both eyes every 4 hours as needed for dry eyes. 11. Multivitamin 1 tablet by mouth daily. CONSULTANTS DURING HOSPITALIZATION: Dr. Osborn, Urology STUDIES DONE DURING HOSPITALIZATION: Renal ultrasound. Impression: Interval resolution of left hydronephrosis, status post placement of ureteral stent catheter, finding suggestive of mild right hydronephrosis, improved from the prior study. HISTORY OF PRESENT ILLNESS AND HOSPITAL SUMMARY: Please see the full history and physical by Linda El NP for full details. Briefly, Ms. Zhao is a 71-year-old female with a past medical history as above, who presented to the hospital at the request of Dr. Osborn due to concern by urinary tract infection and plan for stent removal. The patient was diagnosed with a urinary tract infection by Dr. Osborn and a urine culture on 11/14/16 grew Proteus. The patient was placed on Augmentin and initially had some improvement in her symptoms; however, they then recurred, specifically dysuria and urinary straining. Dr. Osborn planned to remove the patient's left ureteral stent, so he decided to have her come to the hospital for IV antibiotics through the weekend for stent removal on 11/25/16. The patient was admitted to the hospital. Unfortunately, there were some issues with IV access and was unable to get a PICC or central line over the weekend, so she missed a number of her doses of antibiotics. On 11/25/16, a PICC line was placed and the patient was resumed on Zosyn. UA during this hospitalization was positive; however, no bacteria grew from the culture. The patient underwent an uneventful stent removal by Dr. Osborn on Friday, , and was continued on Zosyn. She was evaluated by Dr. Weathers on 11/26/16, who recommend discharge on oral Augmentin for 10 additional days. The patient will follow up with Dr. Osborn and Dr. Weathers in addition to her PCP as an outpatient. Symptoms had resolved the day prior to discharge. TIME SPENT: Total time spent on this discharge was 45 minutes. This is a summary of the hospitalization, please see the full medical record for further details. [id number]/[facility] #: [id number] [facility]
== END 2016-11-26 15:30 | disposition home or self-care (01) | DRG 690 ==
LOC: ED 16:46 → SSU 19:25
PROVIDERS: ADMIT Internal Medicine; ATTEND Hospitalist
PROC: 02HV33Z Insertion of Infusion Device into Superior Vena Cava, Percutaneous Approach (ICD-10-PCS; 2016-11-25)
PROC: 0TP98DZ Removal of Intraluminal Device from Ureter, Via Natural or Artificial Opening Endoscopic (ICD-10-PCS; principal; 2016-11-25 12:00)
DX: N39.0 Urinary tract infection, site not specified (principal); Z68.43 Body mass index [BMI] 50.0-59.9, adult; I13.10 Hypertensive heart and chronic kidney disease without heart failure, with stage 1 through stage 4 chronic kidney disease, or unspecified chronic kidney disease; N18.3 Chronic kidney disease, stage 3 (moderate); E03.9 Hypothyroidism, unspecified; N20.0 Calculus of kidney; I25.10 Atherosclerotic heart disease of native coronary artery without angina pectoris; G40.909 Epilepsy, unspecified, not intractable, without status epilepticus; H54.8 Legal blindness, as defined in USA; E66.01 Morbid (severe) obesity due to excess calories; I25.2 Old myocardial infarction; Z86.711 Personal history of pulmonary embolism; Z96.653 Presence of artificial knee joint, bilateral; Z79.01 Long term (current) use of anticoagulants; Z79.82 Long term (current) use of aspirin; Z79.899 Other long term (current) drug therapy; Z88.2 Allergy status to sulfonamides; Z88.8 Allergy status to other drugs, medicaments and biological substances; Z88.1 Allergy status to other antibiotic agents; Z91.040 Latex allergy status; Z82.49 Family history of ischemic heart disease and other diseases of the circulatory system; Z83.3 Family history of diabetes mellitus; Z80.6 Family history of leukemia; Z87.442 Personal history of urinary calculi; Z86.718 Personal history of other venous thrombosis and embolism
CPT/HCPCS: 36415; 76775; 80048; 80053; 81003; 81015; 85025; 85610; 86140; 87040; 87086; A9270-GY; C1751; J1650; J2543

== ENCOUNTER 2017-03-13 09:04 | Inpatient (IN) | payer MEDICARE ==
[2017-03-13] MEDS ORDERED: NS 0.9% 1000 ML* 1,000 ML IV ONE ×2 (09:21→12:19)
[2017-03-13] MEDS ORDERED: cefTRIAXone(*) 1 GM in NS 0.9% 50 ML* 50 ML IVPB ONE (09:21)
[2017-03-13] MEDS ORDERED: cefTRIAXone(*) 2 GM in NS 0.9% 50 ML* 50 ML IVPB ONE (09:27)
--- NOTE | 2017-03-13 09:57 | RAD ---
CLINICAL HISTORY: Left flank pain COMPARISON: September 13, 2016 TECHNIQUE: Multiple contiguous axial CT scans were obtained of the abdomen and pelvis, without intravenous contrast enhancement. Coronal and sagittal multiplanar reformations are submitted for review. Oral contrast was not administered. FINDINGS: The study is limited by the lack of intravenous contrast. This limits evaluation of the solid organs and vasculature. LUNG BASES: The lung bases are clear. LIVER: The liver is normal in shape, size, contour, and attenuation. BILE DUCTS: There is no intrahepatic or extrahepatic biliary dilatation. GALLBLADDER: The gallbladder is not visualized. Surgical clips are noted in the gallbladder fossa. PANCREAS: The pancreas is normal, without mass or ductal dilatation. SPLEEN: Normal in size and appearance. UPPER GI TRACT: Evaluation of the gastrointestinal tract is limited by incomplete gastric distention. The upper GI tract is unremarkable. SMALL BOWEL AND MESENTERY: The small bowel is normal in contour, course, and caliber. There is no obstruction or dilatation. COLON: The colon is normal in contour, course, caliber. There is no pericolonic inflammatory change. ADRENALS: Normal bilaterally. KIDNEYS: Again noted is severe left pelvocaliectasis and hydroureter extending to the UVJ. There are persistent calyceal stones of the lower pole of left kidney, without ureteral stone. The appearance is similar to the previous examination. There is an extrarenal pelvis on the right. BLADDER: The bladder is smooth in contour. PELVIC ORGANS: The pelvic organs are not visualized. AORTA: The aorta is normal. IVC: Unremarkable LYMPH NODES: There is no lymphadenopathy by size criteria. ABDOMINAL WALL: There is no evidence for abdominal wall hernia. BONES AND SOFT TISSUES: Degenerative changes are noted. OTHER: None IMPRESSION: STABLE SEVERE LEFT-SIDED HYDRONEPHROSIS. THERE ARE STABLE LEFT CALYCEAL STONES, WITHOUT APPRECIABLE OBSTRUCTING URETERAL STONE
[2017-03-13] MEDS ORDERED: cefTRIAXone(*) 2 GM ADDV.VIAL IVPB ONE (10:19)
[2017-03-13] MEDS ORDERED: Morphine INJ* 4 MG/ML 1 ML CARPUJECT IV ONE ×2 (10:23→12:19)
[2017-03-13 10:25] LABS: Hematocrit 41 % (35-47); Hemoglobin 13.2 g/dl (12.0-16.0); Mean Corpuscular HGB Conc 32 g/dl (31-36); Mean Corpuscular Hemoglobin 28 pg (27-31); Mean Corpuscular Volume 86 fL (80-97); Mean Platelet Volume 9 um3 (7.4-10.4); Red Blood Count 4.78 10^6/ul (4.0-5.4); Red Cell Distribution Width 17 % (10.5-15); White Blood Count 13.6 10^3/ul (3.5-10.8)
[2017-03-13 10:42] LABS: Albumin 3.8 g/dL (3.2-5.2); BUN/Creatinine Ratio 25.2 (8-20); C Reactive Protein 13.44 mg/L (< 5.00); Calcium 9.7 mg/dL (8.6-10.3); EGFR African American 40.1 (>60); EGFR Non-African American 31.2 (>60); Globulin 3.9 g/dL (2-4); Total Bilirubin 0.4 mg/dL (0.2-1.0); Total Protein 7.7 g/dL (6.4-8.9)
[2017-03-13 10:58] LABS: Urine Bacteria Absent (Absent); Urine Bilirubin Negative (Negative); Urine Glucose Negative (Negative); Urine Nitrite Negative (Negative)
[2017-03-13] MEDS ORDERED: Ondansetron INJ* 2 MG/ML VIAL IV PRN (12:19)
[2017-03-13] MEDS: NS 0.9% 1000 ML* 1,000 ML IV SCH (13:52)
[2017-03-13] MEDS ORDERED: Heparin VIAL(*) 5000 UNITS/ML VIAL (FIVE THOUSAND) SUBCUT SCH (14:00)
--- NOTE | 2017-03-13 14:16 | HP ---
CC: Dr. Rojo, Dr. Osborn, Dr. Weathers * DATE OF ADMISSION: 03/13/17 ATTENDING PROVIDER: Ashley Azar MD * (DICTATED BY GURPREET MEADOWS NP) PRIMARY CARE PROVIDER: Dr. Rojo. CONSULTING UROLOGIST: Dr. Osborn. CONSULTING INFECTIOUS DISEASE SPECIALIST: Dr. Weathers. CHIEF COMPLAINT: 1. Left flank pain. 2. Abdominal pain. HISTORY OF PRESENT ILLNESS: Ms. Zhao is a 71-year-old female patient, she has a history of pyelonephritis, hydronephrosis in the past, history of nephrolithiasis, CKD stage 3, hypothyroidism. She is legally blind. She has history of NSTEMI; PE, on chronic anticoagulation; history of retroperitoneal hematoma, history of CAD, seizures, depression, AFib, borderline diabetes, hypertension, and hyperlipidemia. She comes in to our ER today stating that yesterday she started having left-sided back pain and then today it progressed and became left-sided flank and abdominal discomfort with associated nausea and vomiting. She describes it as sharp stabbing pain that waxes and wanes, but it does not go away completely. She says that she has not had any dysuria or any frequencies. There have been no chest pain, no shortness of breath. There have been no urinary symptoms. The patient denies having any dysuria, fevers, or chills. She was concerned because it felt like her previous kidney stone, so she came in to the ED today to be evaluated. She was evaluated here and it was noted that she had stable left-sided hydronephrosis, but there was concern that her urine appear to be infected. In addition to this, it is also appeared that she had elevated white count, so we were asked to evaluate for admission. PAST MEDICAL HISTORY: Significant for, 1. Pyelonephritis. 2. Hydronephrosis. 3. History of nephrolithiasis. 4. CKD. 5. Hypothyroidism. 6. Legally blind. 7. NSTEMI. 8. PE. 9. CAD. 10. Seizure. 11. Depression. 12. AFib. 13. Borderline diabetes. 14. Hypertension. 15. Hyperlipidemia. 16. Retroperitoneal bleed in the past. PAST SURGICAL HISTORY: 1. She has had cataract extraction. 2. Cholecystectomy. 3. Hysterectomy. 4. Bilateral total knee replacement. 5. Right elbow ORIF. 6. Right total shoulder arthroplasty. 7. Heart catheterization with no intervention. 8. Cystoscopy with ureteral stenting. MEDICATIONS: Home meds include: 1. Bumex 1 mg p.o. daily. 2. Alphagan 1 drop both eyes daily as needed. 3. Lipitor 20 mg at bedtime. 4. Atenolol 50 mg p.o. daily. 5. Aspirin 81 mg daily. 6. Coumadin 7.5 mg p.o. daily. 7. Sodium chloride 1 drop to both eyes every 4 hours as needed. 8. Potassium citrate 15 mEq p.o. b.i.d. 9. Multivitamin 1 tablet daily. 10. Synthroid 25 mcg p.o. daily. ALLERGIES: Allergies to medication include LEVAQUIN, LATEX, SULFA and LEVOTHYROXINE. FAMILY HISTORY: Mother has a history of glaucoma, she is 93, still alive, has history of dementia. Father has history of diabetes and leukemia. SOCIAL HISTORY: She does not smoke. She rarely drinks alcohol. Surrogate decision maker is her , Bernabe. REVIEW OF SYSTEMS: There was no documented fever. Denied having any significant weight change. There was no double vision, no ear discharge. Denied having any rhinorrhea. No sore throat. No thyroid enlargement. She denied having any chest pain. There was no orthopnea. No nocturnal dyspnea. There was abdominal pain . There was some nausea and vomiting. No dysuria. No frequency. No seizure. There was no loss of consciousness. No pruritus and no skin ulcerations. Review of 14 systems was completed, all others negative. PHYSICAL EXAMINATION GENERAL: At this time, Mrs. Zhao is a 71-year-old female patient. She is chronically ill appearing. She is sitting in the ED stretcher, does not appear to be in any acute distress. VITAL SIGNS: Blood pressure 148/64, pulse 81, respirations 20, O2 sat 99%, temperature 98.5. HEENT: Head: Atraumatic. Eyes: Sclerae anicteric, not pale. Throat: Oral mucosa appears to be dry. No oropharyngeal erythema. NECK: Supple. LUNGS: Clear to auscultation bilaterally. No wheezes, rales, or rhonchi. HEART: Sounds S1, S2. Regular rate and rhythm. No murmurs, rubs, or gallops. ABDOMEN: Soft, flat. There was tenderness in the left CVA. In addition to this, there was tenderness in the left lower quadrant. Bowel sounds present. EXTREMITIES: Pulses were 2+ throughout. She did have chronic brawny discoloration and chronic venostasis. She had 5/5 strength. NEUROLOGIC: The patient is awake, alert, oriented x3. Tongue is midline. Test Operator were equal. No focal deficits. SKIN: Intact. LABORATORY DATA: WBC 15.6, RBC 4.78, hemoglobin 13.2, hematocrit 41, platelet count is 228. The sodium was 140, potassium was 4, chloride of 104, bicarb 28, BUN 41, creatinine 1.63, glucose 163. Lactate 1.5. Calcium 9.7. Total bili 0.4, AST 14, ALT 16, alk phos 70. CRP of 13. Albumin of 3.8, lipase was 21. Urine showed 3+ protein, 2+ blood, 3+ leukocyte esterase, 2+ wbc's, 2+ rbc's. The patient did have an abdominopelvic CT obtained today, which shows stable, severe left-sided hydronephrosis. There are stable left calcaneal stones without appreciable obstructing ureteral stone. There was an EKG obtained today as well, impression showed atrial fibrillation, rate of 83, no ST elevation or T-wave inversions were noted. Old medical records were reviewed. ASSESSMENT/PLAN: Ms. Zhao is a 71-year-old female patient coming into the ED today with complaints of abdominal pain. On evaluation, found to have hydronephrosis, which was stable. However, it is now noted that she appears to be infected. Her urine appears to be again infected and she has elevated white count. She will be admitted under inpatient status for: 1. Hydronephrosis with concern for possible pyelonephritis versus acute cystitis. At this point, Dr. Osborn will be evaluating the patient. She will be on clear liquid diet in case a stent is needed to be placed. She has had this hydronephrosis since the summer, but she has had issues with recurrent infection, so we are trying to hold off on stenting as this may exacerbate the situation, but if she does not improve, she may need a stent ultimately to drain the kidney. Dr. Osborn will be in to evaluate. I also placed a consult to Dr. Weathers. We will get urine cultures, blood cultures, and get serial lactic acid. We will give her another liter of fluids normal saline at 100 an hour, placer her on meropenem based on her previous urine culture results and we will get Dr. Weathers involved to help us narrow down this antibiotic regimen. 2. Chronic kidney disease. Creatinine appears to be stable. We will follow. 3. Hypothyroidism. She will continue her Synthroid. She takes the brand dose only. 4. She is legally blind. Supportive care. 5. Non-ST elevation myocardial infarction, not an active issue at this point. 6. History of pulmonary embolism. I am getting the INR. I do not know where she is at, at this point, but if there is a concern for possible surgery, I am going to probably hold this. 7. Coronary artery disease. Continue her aspirin, statin, and beta-lizeth. 8. History of seizures. We will order seizure precautions. 9. Depression. Continue supportive care. 10. Atrial fibrillation. She is rate controlled. Continue meds as prescribed. 11. History of borderline diabetes. Follow up with primary. 12. Hypertension. Continue meds as prescribed. 13. Hyperlipidemia. Continue statin therapy. 14. Code status: Full code. 15. DVT prophylaxis. Again, awaiting the INR, we will put her on heparin subcu as she has high risk for recurrence of blood clots. 16. Fluids and nutrition. She can have a clear liquid diet. TIME SPENT: Time spent on the admission was 60 minutes, greater than half the time was spent [id number] with the patient, obtaining my history and physical , other half of the time was spent going over the plan of care with the patient and implementing plan of care. I did discuss the plan of care with my attending, Dr. Azar; she is in agreement. GURPREET MEADOWS, DHARMESH [id number]/[facility] #: [id number] ANTHONY
[2017-03-13] MEDS: Meropenem 1 GM PREMIX(*) 1 GM/50 ML BAG IV SCH (15:32)
[2017-03-13] MEDS: Nystatin TOP POWDER* 15 GM BTL TOPICAL SCH ×2 (16:28→20:54)
[2017-03-13] MEDS ORDERED: NS 0.9% 500 ML* 500 ML IV ONE ×2 (17:36→21:54)
[2017-03-13] MEDS: Morphine INJ* 4 MG/ML 1 ML CARPUJECT IV PRN (17:44)
[2017-03-13] MEDS: Atorvastatin* 20 MG TAB PO SCH (20:52)
[2017-03-13] MEDS: PTO:Brimonidine P 0.1%(NF) 1 DROP BTL BOTH EYES SCH (20:52)
[2017-03-13] MEDS: SODIUM CHLORIDE 2% BOTH EYES PRN (21:05)
[2017-03-14] MEDS: Morphine INJ* 4 MG/ML 1 ML CARPUJECT IV PRN (00:02)
[2017-03-14] MEDS: Meropenem 1 GM PREMIX(*) 1 GM/50 ML BAG IV SCH (00:42)
[2017-03-14] MEDS: NS 0.9% 1000 ML* 1,000 ML IV SCH ×2 (02:10→12:00)
[2017-03-14] MEDS: LEVOTHYROXINE 50 MCG PO SCH (05:42)
[2017-03-14 06:03] LABS: Hematocrit 36 % (35-47); Hemoglobin 11.8 g/dl (12.0-16.0); Mean Corpuscular HGB Conc 33 g/dl (31-36); Mean Corpuscular Hemoglobin 28 pg (27-31); Mean Corpuscular Volume 86 fL (80-97); Mean Platelet Volume 8 um3 (7.4-10.4); Red Blood Count 4.19 10^6/ul (4.0-5.4); Red Cell Distribution Width 16 % (10.5-15)
[2017-03-14 06:16] LABS: BUN/Creatinine Ratio 18.8 (8-20); Calcium 8.1 mg/dL (8.6-10.3); EGFR African American 44.5 (>60); EGFR Non-African American 34.6 (>60); Potassium 3.6 mmol/L (3.5-5.0)
[2017-03-14] MEDS: Atenolol TAB* 50 MG PO SCH (08:05)
[2017-03-14] MEDS: Aspirin EC Low Dose* 81 MG TAB.EC PO SCH (08:06)
[2017-03-14] MEDS: PTO:Brimonidine P 0.1%(NF) 1 DROP BTL BOTH EYES SCH ×2 (08:07→22:02)
[2017-03-14] MEDS: SODIUM CHLORIDE 2% BOTH EYES PRN (08:09)
[2017-03-14] MEDS: Acetaminophen TAB* 325 MG PO PRN ×3 (08:10→20:04)
[2017-03-14] MEDS: Nystatin TOP POWDER* 15 GM BTL TOPICAL SCH ×3 (08:14→22:11)
--- NOTE | 2017-03-14 09:22 | ED ---
Hi Maki Angela, scribed for Gerson Vital MD on 03/13/17 at 0920 . Back Pain - HPI Summary HPI Summary: This pt is a 71 y/o female presenting to [facility] c/o left sided flank pain since today at 07:15. Pt reports her pain came on suddenly today. She additionally c/ o nausea and lower back pain. Pt has a history of kidney stones and notes that this feels like one. She rates her pain 6/10 in severity. Pt denies difficulty urinating, hematuria, or any other urinary symptoms. Her last kidney stone was in December and had a cat scan done then. Pt currently denies nausea. Dr. Osborn is her urologist. states Dr. Hdz asked to be called if the pt came in again for a kidney stone. - History of Current Complaint Chief Complaint: EDFlankPain Stated Complaint: KIDNEY PAIN Time Seen by Provider: 03/13/17 09:12 Hx Obtained From: Patient Hx Last Menstrual Period: N/A Onset/Duration: Lasting Hours, Still Present Onset/Duration: Started Hours Ago, Still Present Timing: Constant, Lasting Hours Back Pain Location: Is Discrete @ - left flank Severity Currently: Moderate Pain Intensity: 6 Pain Scale Used: 0-10 Numeric Associated Signs And Symptoms: Positive: Flank Pain - left, Other - POS: nausea , lower back pain. NEG: difficulty urinating, hematuria, urinary symptoms - Allergies/Home Medications Allergies/Adverse Reactions: Allergies Allergy/AdvReac Type Severity Reaction Status Date / Time Levofloxacin [From Levaquin] Allergy Severe Anaphylatic Verified 11/22/16 16:59 Shock Latex Allergy Intermediate ITCHY Verified 11/22/16 16:59 PIMPLE LIKE RASH Sulfa Drugs Allergy Intermediate Hives Verified 11/22/16 16:59 Levothyroxine Allergy Mild Rash And Verified 11/22/16 16:59 Itching Home Medications: Home Medications Aspirin EC Low Dose* [Ecotrin EC Low Dose 81 MG*] 81 mg PO DAILY 03/13/17 [ History Confirmed 03/13/17] Bumetanide TAB* [Bumex 1 MG TAB*] 1 mg PO DAILY 03/13/17 [History Confirmed 10/21] PMH/Surg Hx/FS Hx/Imm Hx Endocrine/Hematology History: Reports: Hx Diabetes - borderline DM, Hx Thyroid Disease - hypothyroidism Cardiovascular History: Reports: Hx Coronary Artery Disease, Hx Deep Vein Thrombosis, Hx Embolism - multiple PEs, Hx Hypercholesterolemia, Hx Hypertension , Hx Peripheral Vascular Disease, Other Cardiovascular Problems/Disorders - cardiac cath Respiratory History: Reports: Hx Pulmonary Embolism - POST OP AFTER SHOULDER REPLACEMENT 2012, 2014 Denies: Hx Asthma, Hx Chronic Obstructive Pulmonary Disease (COPD) GI History: Denies: Hx Gall Bladder Disease - gall bladder removed, Hx Ulcer, Other GI Disorders History: Reports: Hx Kidney Infection, Hx Kidney Stones - left, Hx Renal Disease - BILAT STENT EXCHANGE 07/31/16, Other Problems/Disorders - Kidney stones July 2011 Denies: Hx Dialysis Musculoskeletal History: Reports: Hx Arthritis, Other Musculoskeletal History - Bilateral knee replacements, R shoulder replacement, fractured R elbow Sensory History: Reports: Hx Cataracts, Hx Contacts or Glasses, Hx Glaucoma, Hx Legally Blind, Hx Vision Problem - Pt is legally blind, Hx Hearing Aid - bilat, Hx Hearing Problem, Other Sensory Impairments Opthamlomology History: Reports: Hx Cataracts, Hx Contacts or Glasses, Hx Glaucoma, Hx Legally Blind, Hx Vision Problem - Pt is legally blind, Other Sensory Impairments Neurological History: Reports: Hx Migraine - Hx of none recently, Hx Seizures - Hx of, none recently, Other Neuro Impairments/Disorders - Hx seizures, none recently Psychiatric History: Reports: Hx Autism Denies: Hx Anxiety, Hx Depression - Cancer History Hx Chemotherapy: No Hx Radiation Therapy: No - Surgical History Surgery Procedure, Year, and Place: Hysterectomy September 2014, 1970 R eye cataract removed, 1989 L eye cataract removed, bilateral knee replacements, R shoulder replacement, 2011 cholecystectomy, plate/screws in R elbow, kidney stone treatment x 3 august 09 3 kidney stones remover and litho. done on others bilaterly. Hx Anesthesia Reactions: Yes - GFDS Infectious Disease History: No Infectious Disease History: Denies: Hx Hepatitis, Hx Human Immunodeficiency Virus (HIV), Traveled Outside the [place] in Last 30 Days Comment Only: History Other Infectious Disease - kidney infection - Family History Known Family History: Positive: Cardiac Disease, Hypertension - Social History Alcohol Use: Rare Alcohol Amount: 3-4 PER YEAR Substance Use Type: Reports: None Hx Tobacco Use: No Smoking Status (MU): Never Smoked Tobacco Have You Smoked in the Last Year: No Review of Systems Negative: Fever, Chills Eyes: Negative ENT: Negative Positive: Nausea Positive: flank pain - left sided. Negative: dysuria, hematuria, incontinence Musculoskeletal: Other - lower back pain All Other Systems Reviewed And Are Negative: Yes Physical Exam - Summary Physical Exam Summary: VITAL SIGNS: Reviewed. GENERAL: Patient is an obese female. Patient is in mild distress secondary to pain. HEAD AND FACE: No signs of trauma. No ecchymosis, hematomas or skull depressions. No sinus tenderness. EYES: PERRLA, EOMI x 2, No injected conjunctiva, no nystagmus. EARS: Hearing grossly intact. Ear canals and tympanic membranes are within normal limits. MOUTH: Oropharynx within normal limits. NECK: Supple, trachea is midline, no adenopathy, no JVD, no carotid bruit, no c- spine tenderness, neck with full ROM. CHEST: Symmetric, no tenderness at palpation LUNGS: Clear to auscultation bilaterally. No wheezing or crackles. CVS: Regular rate and rhythm, S1 and S2 present, no murmurs or gallops appreciated. ABDOMEN: Soft, non-tender. No signs of distention. No rebound no guarding, and no masses palpated. Bowel sounds are normal. Left costovertebral tenderness. EXTREMITIES: FROM in all major joints, no edema, no cyanosis or clubbing. NEURO: Alert and oriented x 3. No acute neurological deficits. Speech is normal and follows commands. SKIN: Dry and warm Triage Information Reviewed: Yes Vital Signs On Initial Exam: Initial Vitals Temp Pulse Resp BP Pulse Ox 98.5 F 81 20 166/73 100 03/13/17 09:05 03/13/17 09:05 03/13/17 09:05 03/13/17 09:05 03/13/17 09:05 Vital Signs Reviewed: Yes Diagnostics - Vital Signs Vital Signs Temp Pulse Resp BP Pulse Ox 03/13/17 09:05 98.5 F 81 20 166/73 100 - Laboratory Lab Results: Lab Results 03/13/17 03/13/17 03/13/17 Range/Units 09:50 10:05 10:05 WBC (3.5-10.8) 10^3/ul RBC (4.0-5.4) 10^6/ul Hgb (12.0-16.0) g/dl Hct (35-47) % MCV (80-97) fL MCH (27-31) pg MCHC (31-36) g/dl RDW (10.5-15) % Plt Count (150-450) 10^3/ul MPV (7.4-10.4) um3 Neut % (Auto) (38-83) % Lymph % (Auto) (25-47) % Prairie % (Auto) (1-9) % Eos % (Auto) (0-6) % Baso % (Auto) (0-2) % Absolute Neuts (auto) (1.5-7.7) 10^3/ul Absolute Lymphs (auto) (1.0-4.8) 10^3/ul Absolute Monos (auto) (0-0.8) 10^3/ul Absolute Eos (auto) (0-0.6) 10^3/ul Absolute Basos (auto) (0-0.2) 10^3/ul Absolute Nucleated RBC 10^3/ul Nucleated RBC % INR (Anticoag Therapy) (0.77-1.02) Sodium 140 (133-145) mmol/L Potassium 4.0 (3.5-5.0) mmol/L Chloride 104 (101-111) mmol/L Carbon Dioxide 28 (22-32) mmol/L Anion Gap 8 (2-11) mmol/L BUN 41 H (6-24) mg/dL Creatinine 1.63 H (0.51-0.95) mg/dL Est GFR ( Amer) 40.1 (>60) Est GFR (Non-Af Amer) 31.2 (>60) BUN/Creatinine Ratio 25.2 H (8-20) Glucose 163 H (70-100) mg/dL Lactic Acid (0.5-2.0) mmol/L Calcium 9.7 (8.6-10.3) mg/dL Total Bilirubin 0.40 (0.2-1.0) mg/dL AST 14 (13-39) U/L ALT 16 (7-52) U/L Alkaline Phosphatase 70 (34-104) U/L Total Creatine Kinase 35 (10-223) U/L C-Reactive Protein 13.44 H (< 5.00) mg/L B-Natriuretic Peptide 62 ( - 100) pg/mL Total Protein 7.7 (6.4-8.9) g/dL Albumin 3.8 (3.2-5.2) g/dL Globulin 3.9 (2-4) g/dL Albumin/Globulin Ratio 1.0 (1-3) Lipase 21 (11.0-82.0) U/L Urine Color Yellow Urine Appearance Cloudy Urine pH 6.0 (5-9) Ur Specific [place] 1.017 (1.010-1.030) Urine Protein 3+(>=500 mg/dl) H (Negative) Urine Ketones Negative (Negative) Urine Blood 2+ H (Negative) Urine Nitrate Negative (Negative) Urine Bilirubin Negative (Negative) Urine Urobilinogen Negative (Negative) Ur Leukocyte Esterase 3+ H (Negative) Urine WBC (Auto) 3+(>20/hpf) H (Absent) Urine RBC (Auto) 3+(>10/hpf) H (Absent) Urine Bacteria Absent (Absent) Urine Glucose Negative (Negative) 03/13/17 03/13/17 03/13/17 Range/Units 10:05 10:05 10:05 WBC 13.6 H (3.5-10.8) 10^3/ul RBC 4.78 (4.0-5.4) 10^6/ul Hgb 13.2 (12.0-16.0) g/dl Hct 41 (35-47) % MCV 86 (80-97) fL MCH 28 (27-31) pg MCHC 32 (31-36) g/dl RDW 17 H (10.5-15) % Plt Count 228 (150-450) 10^3/ul MPV 9 (7.4-10.4) um3 Neut % (Auto) 82.7 (38-83) % Lymph % (Auto) 8.6 L (25-47) % Prairie % (Auto) 7.5 (1-9) % Eos % (Auto) 0.6 (0-6) % Baso % (Auto) 0.6 (0-2) % Absolute Neuts (auto) 11.3 H (1.5-7.7) 10^3/ul Absolute Lymphs (auto) 1.2 (1.0-4.8) 10^3/ul Absolute Monos (auto) 1.0 H (0-0.8) 10^3/ul Absolute Eos (auto) 0.1 (0-0.6) 10^3/ul Absolute Basos (auto) 0.1 (0-0.2) 10^3/ul Absolute Nucleated RBC 0.01 10^3/ul Nucleated RBC % 0.1 INR (Anticoag Therapy) 1.90 H (0.77-1.02) Sodium (133-145) mmol/L Potassium (3.5-5.0) mmol/L Chloride (101-111) mmol/L Carbon Dioxide (22-32) mmol/L Anion Gap (2-11) mmol/L BUN (6-24) mg/dL Creatinine (0.51-0.95) mg/dL Est GFR ( Amer) (>60) Est GFR (Non-Af Amer) (>60) BUN/Creatinine Ratio (8-20) Glucose (70-100) mg/dL Lactic Acid 1.5 (0.5-2.0) mmol/L Calcium (8.6-10.3) mg/dL Total Bilirubin (0.2-1.0) mg/dL AST (13-39) U/L ALT (7-52) U/L Alkaline Phosphatase (34-104) U/L Total Creatine Kinase (10-223) U/L C-Reactive Protein (< 5.00) mg/L B-Natriuretic Peptide ( - 100) pg/mL Total Protein (6.4-8.9) g/dL Albumin (3.2-5.2) g/dL Globulin (2-4) g/dL Albumin/Globulin Ratio (1-3) Lipase (11.0-82.0) U/L Urine Color Urine Appearance Urine pH (5-9) Ur Specific [place] (1.010-1.030) Urine Protein (Negative) Urine Ketones (Negative) Urine Blood (Negative) Urine Nitrate (Negative) Urine Bilirubin (Negative) Urine Urobilinogen (Negative) Ur Leukocyte Esterase (Negative) Urine WBC (Auto) (Absent) Urine RBC (Auto) (Absent) Urine Bacteria (Absent) Urine Glucose (Negative) Result Diagrams: 03/14/17 05:26 03/14/17 05:26 Lab Statement: Any lab studies that have been ordered have been reviewed, and results considered in the medical decision making process. - CT Abdomen/pelvis CT CT Interpretation: Positive (See Comments) - IMPRESSION: Stable severe left- sided hydronephrosis. There are stable left calyceal stones, without appreciable obstructing ureteral stone. ED physician has reviewed this radiology report and agrees. CT Interpretation Completed By: Radiologist - EKG 0931 Cardiac Rate: NL EKG Rhythm: Atrial Fibrillation - at 83 bpm EKG Interpretation: No ST elevation EKG Comparison: No Significant Change - no change from prior EKG done on . Back Pain Course/Dx - Course Assessment/Plan: This pt is a 71 y/o female presenting to [facility] c/o left sided flank pain since today at 07:15. Pt reports her pain came on suddenly today. She additionally c/o nausea and lower back pain. Pt has a history of kidney stones and notes that this feels like one. She rates her pain 6/10 in severity. Pt denies difficulty urinating, hematuria, or any other urinary symptoms. Her last kidney stone was in December and had a cat scan done then. Pt currently denies nausea. Dr. Osborn is her urologist. states Dr. Hdz asked to be called if the pt came in again for a kidney stone. Test results without any significant abnormalities except for WBC of 13.6, increased renal insufficiency, glucose of 163, CRP of 13.4, and a possible UTI. Abdomen/pelvis CT shows Stable severe left-sided hydronephrosis. There are stable left calyceal stones, without appreciable obstructing ureteral stone. I discussed the case with Dr. Osborn, who recommends 2 grams of IV Rocephin, IV fluids, and morphine for the pain. He recommends admission for further management and to be NPO after midnight. I discussed the case with Dr. Azar, who accepted the pt for admission. - Diagnoses Differential Diagnosis/HQI/PQRI: Positive: Arthritis, Herniated Disc, Strain, Sprain Provider Diagnoses: UTI (urinary tract infection), Flank pain, Hydronephrosis - Provider Notifications Discussed Care Of Patient With: Agustin Osborn Time Discussed With Above Provider: 11:10 Instructed by Provider To: Other - I discussed the pt's case with Dr. Osborn, who recommends the pt should be admitted. [11:28] I discussed with Dr. Azar, who has accepted the pt for admission. Discharge - Discharge Plan Condition: Stable Disposition: ADMITTED TO [facility] documentation as recorded by the Hi whyte Angela accurately reflects the service I personally performed and the decisions made by me, Gerson Vital MD.
[2017-03-14] MEDS ORDERED: Dextrose 50% Syringe 50 ML* 25 GM/50 ML SYRINGE IV PUSH PRN (10:18)
--- NOTE | 2017-03-14 11:33 | CONS ---
CONSULTATION NOTE: DATE OF CONSULT: 03/14/17 HISTORY OF PRESENT ILLNESS: Ms. Zhao is a 71-year-old white female whom I have been following for the last several years because of recurrent episodes of renal colics and recurrent urinary tract infections. She has only minimal residual stone burden in her left kidney with 2 small calculi measuring 5-mm each, located in the mid and the lower pole calices of the left kidney and are nonobstructing. The patient developed left hydroureteronephrosis that seems to have occurred following an episode of left retroperitoneal hematoma, which occurred last winter secondary to anticoagulation. I think the hematoma, after it was resolved, resulted in periureteral fibrosis and partial obstruction of the ;eft ureter. This was managed previously with stent placement and the stent was removed about 3 months ago. She had been followed in the office and continued to have mild to moderate left hydronephrosis but has been asymptomatic. She presented yesterday to the emergency room with acute left flank pain, low grade fever and positive urinalysis for infection. Noncontrast CT of the abdomen and pelvis showed moderate left hydroureteronephrosis with the obstruction in the distal left ureter. There was no calculi seen in the ureter. Two small nonobstructing calculi were seen in the left kidney. The patient has been on IV meropenem and seems to be responding to treatment with her flank pain much improved and her temperature down to 100. PLAN: The plan is to take her to the operating room for cystoscopy, left retrograde pyelography, balloon dilation of the ureteral narrowing, and placement of left ureteral stent. That has to be performed after the patient has been on antibiotics for a couple of days and plan is to do this procedure tomorrow morning. I discussed the above plans with the patient and all her questions were answered. [id number]/[facility] #: [id number] ANTHONY
[2017-03-14] MEDS ORDERED: Phytonadione Oral Solution* 5 MG/25 ML UDC PO ONE (12:11)
[2017-03-14] MEDS: Insulin LISPRO* 1 UNITS UNIT SUBCUT SCH ×2 (12:33→22:00)
[2017-03-14] MEDS: Cefepime 2 GM in Dextrose(*) 2 GM/50 ML BAG IV SCH (13:17)
--- NOTE | 2017-03-14 13:30 | CONS ---
CONSULTATION REPORT: DATE OF CONSULTATION: 03/14/17 REQUESTING PROVIDER: Dewey Hargrove NP. CONSULTING SERVICE: Infectious Disease. REASON FOR CONSULTATION: Pyelonephritis, hydronephrosis. IMPRESSION: 1. Left pyelonephritis. Urine culture is pending; it has grown pseudomonas and proteus a number of times in the past. She has a chronic left-sided hydronephrosis, previous retroperitoneal hematoma, which has long since resolved but the hydronephrosis persists. 2. Urinary incontinence. Recent pelvic floor PT. 3. Morbid obesity. 4. History of nephrolithiasis. 5. Chronic kidney disease. 6. History of left ureteral stent, none recently. 7. LEVAQUIN allergy, caused seizure; SULFA caused hives. RECOMMENDATIONS: Stop meropenem. Start cefepime every 12 hours. We will await the urine culture. She is going to have stenting, which is planned for tomorrow. HISTORY OF PRESENT ILLNESS: This is a 71-year-old woman with recurrent urinary tract infection, left hydronephrosis, was admitted with left flank pain, chills , fever; no dysuria. Came on kind of suddenly, she was doubled over, so she came to the ER with her on the . White count was 14,000. She was started on meropenem. She had IV fluids. She was febrile at 38 degrees, but normotensive. She had a CT scan that showed continued left-sided hydronephrosis ; no nephrolithiasis. Urinalysis showed protein, blood, leukocyte esterase and cultures are pending. The blood cultures are negative 24 hours. She has not been on antibiotics recently. Her last urinary tract infection was in November 2016. PAST MEDICAL HISTORY: 1. Morbid obesity. 2. Impaired fasting glucose. 3. History of pyelonephritis. 4. Chronic left hydronephrosis. 5. History of ureteral stenting. 6. History of nephrolithiasis. 7. Chronic kidney disease. 8. Hypothyroidism. 9. Blind. 10. Non-ST elevation NC and coronary disease. 11. Pulmonary embolus. 12. Seizure disorder. 13. Depression. 14. Atrial fibrillation. 15. Hypertension. 16. Hyperlipidemia. 17. Retroperitoneal bleed. 18. Status post cataract extraction. 19. Status post cholecystectomy. 20. Status post hysterectomy. 21. Status post bilateral total knee arthroplasty. 22. Status post right elbow open reduction and internal fixation. 23. Status post right shoulder arthroplasty. MEDICATIONS: 1. Tylenol. 2. Aspirin. 3. Atenolol. 4. Lipitor. 5. Meropenem 1 g every 12 hours. 6. Morphine as needed. 7. Nystatin topical powder ALLERGIES: LEVAQUIN caused seizure; SULFA caused hives, LATEX and LEVOTHYROXINE. SOCIAL HISTORY: She lives with her . She is not a smoker. No trips out of the area recently. FAMILY HISTORY: Mother alive at 93, healthy. Father with diabetes, leukemia. REVIEW OF SYSTEMS: A 14-point review of systems was negative except as noted above in the history of present illness. PHYSICAL EXAMINATION: Vital Signs: Temperature 37, T-max 38, heart rate 95, respiratory rate 18, blood pressure 138/52, O2 sat 97% on room. General: She is a awake, not in distress. Neurologic: She is oriented x3. Follows all commands. Moves all extremities. HEENT: There is no conjunctival hemorrhage. Oropharynx without lesions. Neck: Supple without rigidity. Lymph Nodes: There is no inguinal, axillary, or epitrochlear lymphadenopathy. Heart: Regular rate and rhythm without murmurs, rubs, or gallops. Lungs: Clear to auscultation bilateral. Abdomen: Soft, nontender, nondistended. There is mild left flank tenderness to palpation. There is no suprapubic tenderness to palpation. Skin: There are no rashes or splinter hemorrhages. Musculoskeletal : There is no spine tenderness to palpation. There is normal muscle bulk and tone bilaterally in upper and lower extremities. LABORATORY DATA: Creatinine 1.5 down from 1.6. White blood cell count 10, hemoglobin 11.8, platelets 207. Please see impressions and recommendations as outlined above, which I have discussed with KINGS Almodovar. Thanks for asking me to see Ms. Zhao in consultation. [id number]/[facility] #: [id number] [facility]
--- NOTE | 2017-03-14 14:38 | PN ---
Subjective Date of Service: 03/14/17 Interval History: This is a 71 yo female with HTN, CKD and h/o PE chronically anticoagulated with Coumadin who presented with c/o flank pain and nausea found to have L sided hydronephrosis and UTI. The hydronephrosis is not acute, no stone identified on CT. She has a h/o a retroperitoneal hematoma, perhaps with residual scarring obstructing the L ureteral. Patient was empirically treated with meropenem at admission with urology and ID consults requested. Today, patient reports significant improvement in her pain. No further n/v. Appetite improving. Dr Osborn plans to take her to the OR tomorrow for ureteral dilation and stent placement. Objective Active Medications: Acetaminophen (Tylenol Tab*) 650 mg PO Q4H PRN PRN Reason: FEVER/PAIN Last Admin: 03/14/17 12:07 Dose: 650 mg Aspirin (Aspirin Ec Low Dose*) 81 mg PO DAILY [facility] Last Admin: 03/14/17 08:06 Dose: 81 mg Atenolol (Tenormin Tab*) 50 mg PO QAM [facility] Last Admin: 03/14/17 08:05 Dose: 50 mg Atorvastatin Calcium (Lipitor*) 20 mg PO BEDTIME [facility] Last Admin: 03/13/17 20:52 Dose: Not Given Brimonidine Tartrate (Alphagan P 0.1% (Nf)) 1 drop BOTH EYES BID [facility] Last Admin: 03/14/17 08:07 Dose: 1 drop Dextrose (D50w Syringe 50 Ml*) 12.5 gm IV PUSH .FOR FS < 60 - SS PRN PRN Reason: FS < 60 Sodium Chloride (Ns 0.9% 1000 Ml*) 1,000 mls @ 100 mls/hr IV PER RATE [facility] Last Admin: 03/14/17 02:10 Dose: 100 mls/hr Cefepime HCl (Maxipime 2 Gm In Dextrose Duplex (*)) 2 gm in 50 mls @ 100 mls/ hr IV Q12H [facility] Last Admin: 03/14/17 13:17 Dose: 100 mls/hr Insulin Human Lispro (Humalog*) 0 units SUBCUT AC JN PRN Reason: Protocol Last Admin: 03/14/17 12:33 Dose: 1 unit Morphine Sulfate (Morphine Inj (Syringe)*) 4 mg IV Q4H PRN PRN Reason: PAIN Last Admin: 03/14/17 00:02 Dose: 4 mg Pto* (Levothyroxine Tab* [Synthroid 50 Mcg Tab*] 50 Mcg) 25 mcg PO QAM [facility] Last Admin: 03/14/17 05:42 Dose: 25 mcg Nystatin (Nystatin Top Powder*) 1 applic TOPICAL TID [facility] Last Admin: 03/14/17 08:14 Dose: Not Given Ondansetron HCl (Zofran Inj*) 4 mg IV Q6H PRN PRN Reason: NAUSEA Sodium Chloride (Hypertonic) (Karolina 128 Opth 2% Ale*) 1 drop BOTH EYES Q4H PRN PRN Reason: DRY EYE Last Admin: 03/14/17 08:09 Dose: 1 drop Vital Signs - 8 hr 03/14/17 03/14/17 03/14/17 07:29 08:00 11:03 Temperature 98.5 F 98.6 F Pulse Rate 95 78 Respiratory 18 16 16 Rate Blood Pressure 138/52 122/68 (mmHg) O2 Sat by Pulse 97 97 Oximetry Oxygen Devices in Use Now: None Appearance: Well appearing, in NAD. Accompanied by her Respiratory: Symmetrical Chest Expansion and Respiratory Effort, Clear to Auscultation Cardiovascular: NL Sounds; No Murmurs; No JVD, RRR Abdominal: NL Sounds; No Tenderness; No Distention, - - L CVA tenderness Extremities: - - 2+ non-pitting, chronic edema Skin: - - chronic sore over R lower anterior leg Neurological: Alert and Oriented x 3 Result Diagrams: 03/14/17 05:26 03/14/17 05:26 Additional Lab and Data: . Microbiology and Other Data: Microbiology 03/13/17 09:50 Urine Culture - Preliminary Urine Citrobacter Freundii 03/13/17 10:10 Aerobic Blood Culture - Preliminary Blood Venous No Growth Day 1 Anaerobic Blood Culture - Preliminary No Growth Day 1 03/13/17 10:05 Aerobic Blood Culture - Preliminary Blood Venous No Growth Day 1 Anaerobic Blood Culture - Preliminary No Growth Day 1 Assess/Plan/Problems-Billing Assessment: This is a 71 yo female with stage III CKD, CAD, h/o PE on chronic anticoagulation with HTN, HLD and legally blind who presented with flank pain and nausea, admitted with concern for L pyelonephritis and associated hydronephrosis. - Patient Problems (1) Hydronephrosis Comment: With associated pyelonephritis L hydronephrosis without obstructing stone, suspected scarring from prior retroperitoneal hematoma Plan for OR with Dr Osborn tomorrow am with dilation of the L ureter and stent placement Blood cultures neg, urine culture growing >100K Citrobacter colonies Appreciate ID recommendations, cont Cefepime, Meropenem stopped (2) History of pulmonary embolus (PE) Comment: Chronically anticoagulated with Coumadin Plan for partial reversal with vit K, recheck INR in am (3) CAD (coronary artery disease) Comment: Asx Continue ASA and statin. (4) Diabetes Comment: Diet controlled at home Monitor mealtime glucose and cover hyperglycemia with SS Humalog during hospitalization (5) Wound of lower extremity Comment: Chronic No associated infection Cont usual wound care (6) HTN (hypertension) Comment: Normotensive Continue home Atenolol (7) Full code status (8) DVT prophylaxis Comment: Coumadin Status and Disposition: Transition to inpatient. OR tomorrow. Anticipate dc in 2-3d
[2017-03-14] MEDS: Atorvastatin* 20 MG TAB PO SCH (22:02)
[2017-03-15] MEDS: Cefepime 2 GM in Dextrose(*) 2 GM/50 ML BAG IV SCH ×2 (01:27→13:45)
[2017-03-15] MEDS: Atenolol TAB* 50 MG PO SCH (07:42)
[2017-03-15] MEDS: LEVOTHYROXINE 50 MCG PO SCH (07:42)
[2017-03-15] MEDS: Nystatin TOP POWDER* 15 GM BTL TOPICAL SCH ×3 (07:43→20:05)
[2017-03-15] MEDS: PTO:Brimonidine P 0.1%(NF) 1 DROP BTL BOTH EYES SCH ×3 (07:43→20:05)
[2017-03-15] MEDS: Morphine INJ* 4 MG/ML 1 ML CARPUJECT IV PRN ×2 (07:49→13:46)
[2017-03-15] MEDS: Insulin LISPRO* 1 UNITS UNIT SUBCUT SCH ×3 (07:55→18:11)
[2017-03-15] MEDS: Aspirin EC Low Dose* 81 MG TAB.EC PO SCH (07:55)
[2017-03-15] MEDS: SODIUM CHLORIDE 2% BOTH EYES PRN ×2 (08:02→18:10)
[2017-03-15 09:16] LABS: Hematocrit 34 % (35-47); Hemoglobin 11.3 g/dl (12.0-16.0); Mean Corpuscular HGB Conc 33 g/dl (31-36); Mean Corpuscular Hemoglobin 28 pg (27-31); Mean Corpuscular Volume 86 fL (80-97); Mean Platelet Volume 8 um3 (7.4-10.4); Red Blood Count 3.97 10^6/ul (4.0-5.4); Red Cell Distribution Width 16 % (10.5-15); White Blood Count 8.3 10^3/ul (3.5-10.8)
[2017-03-15 09:26] LABS: BUN/Creatinine Ratio 18.5 (8-20); Calcium 8.9 mg/dL (8.6-10.3); EGFR African American 41.9 (>60); EGFR Non-African American 32.6 (>60)
[2017-03-15] MEDS ORDERED: Ondansetron INJ* 2 MG/ML VIAL ONE (09:30)
[2017-03-15] MEDS ORDERED: Lidocaine 2% PF * 5 ML VIAL ONE (09:30)
[2017-03-15] MEDS ORDERED: fentaNYL* 50 MCG/ML 2 ML VIAL (100 MCG VIAL) ONE ×2 (09:30→11:27)
[2017-03-15] MEDS ORDERED: KETAMINE HCL* 50 MG/ML 10 ML VIAL ONE (09:30)
[2017-03-15] MEDS ORDERED: Midazolam* 1 MG/ML 10 ML VIAL (10 MG) ONE (09:30)
[2017-03-15] MEDS ORDERED: Propofol* 10 MG/ML 20 ML BTL IV PUSH ONE (09:30)
[2017-03-15] MEDS ORDERED: Dexamethasone IV* 4 MG/ML 1 ML (4 MG) ONE (09:30)
[2017-03-15] MEDS ORDERED: Iohexol 180 (CONTRAST) 10 ML SDV IV ONE ×2 (10:05→10:50)
[2017-03-15] MEDS ORDERED: Ondansetron INJ* 2 MG/ML VIAL IV PRN (10:11)
[2017-03-15] MEDS ORDERED: EPHEDrine (Pressors)* 50 MG/ML VIAL ONE (10:36)
[2017-03-15] MEDS: fentaNYL* 50 MCG/ML 2 ML VIAL (100 MCG VIAL) IV PRN ×4 (11:28→12:09)
--- NOTE | 2017-03-15 11:33 | RAD ---
INDICATION: Cystoscopy, LEFT retrograde pyelogram, ureteral dilatation, stent placement. COMPARISON: March 13, 2017 CT. TECHNIQUE: 28 seconds fluoroscopy. Multiple spot images obtained. FINDINGS: LEFT retrograde pyelogram documents severe caliectasis. LEFT ureteral balloon dilatation documented. LEFT ureteral stent placed. IMPRESSION: Procedural fluoroscopy. CPT II Codes: 6045F
[2017-03-15] MEDS: NS 0.9% 1000 ML* 1,000 ML IV SCH ×2 (13:16→23:40)
--- NOTE | 2017-03-15 14:05 | PN ---
Subjective Date of Service: 03/15/17 Interval History: Patient went to the OR this am with Dr Osborn who identified 2 strictures that were dilated with a stent placed. Purulent material was drained from the L kidney. She remained afebrile overnight. When examined postoperatively, patient reported moderate L flank pain, but no n/ v. Denies CP, SOB. Objective Active Medications: Acetaminophen (Tylenol Tab*) 650 mg PO Q4H PRN PRN Reason: FEVER/PAIN Last Admin: 03/14/17 20:04 Dose: 650 mg Aspirin (Aspirin Ec Low Dose*) 81 mg PO DAILY [facility] Last Admin: 03/15/17 07:55 Dose: Not Given Atenolol (Tenormin Tab*) 50 mg PO QAM [facility] Last Admin: 03/15/17 07:42 Dose: 50 mg Atorvastatin Calcium (Lipitor*) 20 mg PO BEDTIME [facility] Last Admin: 03/14/17 22:02 Dose: 20 mg Brimonidine Tartrate (Alphagan P 0.1% (Nf)) 1 drop BOTH EYES BID [facility] Last Admin: 03/15/17 07:43 Dose: 1 drop Dextrose (D50w Syringe 50 Ml*) 12.5 gm IV PUSH .FOR FS < 60 - SS PRN PRN Reason: FS < 60 Enoxaparin Sodium (Lovenox(*)) 135 mg SUBCUT Q12H [facility] Heparin Sodium (Porcine) (Heparin Flush Picc/Ml/Cvc(*)) 0 ml FLUSH 0600,1800 [facility] PRN Reason: Protocol Last Admin: 03/15/17 07:50 Dose: 1 ml Cefepime HCl (Maxipime 2 Gm In Dextrose Duplex (*)) 2 gm in 50 mls @ 100 mls/ hr IV Q12H [facility] Last Admin: 03/15/17 13:45 Dose: 100 mls/hr Sodium Chloride (Ns 0.9% 1000 Ml*) 1,000 mls @ 100 mls/hr IV .PER RATE [facility] Last Admin: 03/15/17 13:16 Dose: 100 mls/hr Insulin Human Lispro (Humalog*) 0 units SUBCUT AC JN PRN Reason: Protocol Last Admin: 03/15/17 13:14 Dose: Not Given Morphine Sulfate (Morphine Inj (Syringe)*) 4 mg IV Q4H PRN PRN Reason: PAIN Last Admin: 12/09/17 13:46 Dose: 4 mg Pto* (Levothyroxine Tab* [Synthroid 50 Mcg Tab*] 50 Mcg) 25 mcg PO QAM [facility] Last Admin: 03/15/17 07:42 Dose: 25 mcg Nystatin (Nystatin Top Powder*) 1 applic TOPICAL TID [facility] Last Admin: 03/15/17 07:43 Dose: 1 applic Ondansetron HCl (Zofran Inj*) 4 mg IV Q6H PRN PRN Reason: NAUSEA Pharmacy Profile Note (Coumadin Daily Reminder*) 0 note FOLLOW UP 1700 JN Sodium Chloride (Hypertonic) (Karolina 128 Opth 2% Ale*) 1 drop BOTH EYES Q4H PRN PRN Reason: DRY EYE Last Admin: 03/15/17 08:02 Dose: 1 drop Warfarin Sodium (Coumadin Tab(*)) 10 mg PO DAILY@1700 JN PRN Reason: Protocol Vital Signs: Temp Pulse Resp BP Pulse Ox 98.0 F 73 16 146/72 98 03/15/17 12:44 03/15/17 12:44 03/15/17 13:53 03/15/17 12:44 03/15/17 12:44 Oxygen Devices in Use Now: None Appearance: Well appearing morbidly obese female in NAD. Accompanied by her . Respiratory: Symmetrical Chest Expansion and Respiratory Effort, Clear to Auscultation Cardiovascular: NL Sounds; No Murmurs; No JVD, RRR Abdominal: - - some L flank pain with palpation, otherwise benign abdomen Extremities: - - 1+ non-pitting edema bilateral lower extremities Neurological: Alert and Oriented x 3 Result Diagrams: 03/15/17 08:55 03/15/17 08:55 Additional Lab and Data: . Microbiology and Other Data: Microbiology 03/13/17 09:50 Urine Culture - Preliminary Urine Citrobacter Freundii 03/13/17 10:10 Aerobic Blood Culture - Preliminary Blood Venous No Growth Day 1 Anaerobic Blood Culture - Preliminary No Growth Day 1 03/13/17 10:05 Aerobic Blood Culture - Preliminary Blood Venous No Growth Day 1 Anaerobic Blood Culture - Preliminary No Growth Day 1 Assess/Plan/Problems-Billing Assessment: This is a 71 yo female with stage III CKD, CAD, h/o PE on chronic anticoagulation with HTN, HLD and legally blind who presented with flank pain and nausea, admitted with concern for L pyelonephritis and associated hydronephrosis. - Patient Problems (1) Hydronephrosis Comment: With associated pyelonephritis Now s/p retrograde pyelogram which confirmed 2 strictures of the L ureter which were partially dilated with a stent placed Blood cultures neg, urine culture growing >100K Citrobacter colonies Appreciate ID recommendations, cont Cefepime, Meropenem stopped (2) History of pulmonary embolus (PE) Comment: Chronically anticoagulated with Coumadin Partially reversed INR for procedure, INR 1.3 this am Will reload Coumadin and bridge with Lovenox (no dose adjustment needed, pt < 144kg and CrCl >30) (3) CAD (coronary artery disease) Comment: Asx Continue ASA and statin. (4) Diabetes Comment: Diet controlled at home Monitor mealtime glucose and cover hyperglycemia with SS Humalog during hospitalization (5) Wound of lower extremity Comment: Chronic No associated infection Cont usual wound care (6) HTN (hypertension) Comment: Normotensive Continue home Atenolol (7) Morbid obesity Comment: BMI 48 (8) Full code status (9) DVT prophylaxis Comment: Coumadin Status and Disposition: Inpatient. Anticipate dc home in 1-2d.
[2017-03-15] MEDS: oxyCODONE TAB* 5 MG TAB PO PRN ×2 (15:07→21:54)
[2017-03-15] MEDS ORDERED: Warfarin TAB(*) 10 MG PO SCH (17:00)
[2017-03-15] MEDS: Enoxaparin(*) 150 MG/ML 1 ML SYRINGE SUBCUT SCH (18:12)
[2017-03-15] MEDS: Atorvastatin* 20 MG TAB PO SCH (20:05)
--- NOTE | 2017-03-16 00:11 | OP ---
DATE OF OPERATION: 03/15/17 - ROOM #334 DATE OF : 47 SURGEON: Agustin Osborn MD ANESTHESIOLOGIST: Dr. Jayme Cuadra. ANESTHESIA: General. PRE-OP DIAGNOSES: 1. Left hydronephrosis. 2. Left pyelonephritis. 3. Left ureteral strictures. POST-OP DIAGNOSES: 1. Left hydronephrosis. 2. Left pyonephrosis. 3. Left ureteral strictures. OPERATIVE PROCEDURE: 1. Cystoscopy 2. Left retrograde pyelography. 3. Balloon dilation of left ureteral stricture. 4. Placement of left ureteral stent (black silicon, 8.5-Czech, 24 cm). INDICATIONS FOR PROCEDURE: Mrs. Zhao is a 71-year-old white female who is a known stone former and who had required several bilateral endoscopic procedures in the past. About 10 months ago, she developed a spontaneous large left retroperitoneal hematoma secondary to anticoagulation. She ultimately recovered from it but following that hematoma, she developed left hydronephrosis with an obstruction in the left ureter which was felt to be secondary to ureteral strictures, that occurred after the hematoma became organized. The patient has been doing fine with moderate left hydronephrosis. She presented three days ago with left flank pain, low-grade fever, and infected urine. Noncontrast CT of the abdomen and pelvis showed left hydronephrosis, nonobstructing small left renal calculi and dilated ureter. No ureteral calculi were seen. She was treated with IV antibiotics and has been doing well. She is taken to the operating room for the above procedure. PATHOLOGY: At cystoscopy, the bladder mucosa looked normal. There were no suspicious of bladder lesions seen. The ureteral orifices looked normal. Mucopurulent material was seen coming from the left ureteral orifice. After placement of an open-ended catheter in the left renal pelvis, a total of 40 cc of purulent urine was drained from the kidney. Specimen was sent for culture. Left retrograde pyelography showed that the ureter is not dilated up to the level of L3-L4. Above that level, there was dilated renal pelvis and hold up of the contrast at that level. Moderate left hydronephrosis was noted. There was a demonstrated additional stricture of the ureter at the junction between the middle and the distal third. This did not yield to the balloon dilation. DESCRIPTION OF PROCEDURE: After successful general anesthesia, the patient was placed in the lithotomy position and was prepped and draped for a cystoscopy. Cystoscopy was performed. The bladder was carefully inspected and the above findings were noted. A flexible tip guidewire was then introduced into the left orifice and positioned in the area of the renal pelvis. A 5-Czech open-ended catheter was fed on top of the guidewire and positioned in the area of the renal pelvis. The collecting system was then drained and aspirated of a total of 40 cc of purulent urine and the specimen was sent for culture. After the kidney was drained, the ureteral catheter was pulled down to the level of the distal ureter and retrograde pyelography was performed demonstrating the above pathology namely a stricture at the level of the proximal ureter. The guidewire was reintroduced inside the ureter. A balloon dilator was then passed over the guidewire and positioned in the distal ureter. The balloon was inflated and there was persistent waisting of a half centimeter strictured segment at the junction between the middle and the distal thirds of the ureter. Following deflating the balloon, it could not be introduced into the proximal ureter for additional dilations. I preferred not to force the dilation because of the purulent urine in her collecting system. With the guidewire in place a black silicone stent, a 24 cm long, 8.5-Czech was then placed with the proximal and coiling in the renal pelvis and the distal end coiling inside the bladder. There was good drainage of contrast from the kidney and no extravasation. A size 18-Czech Dixon catheter was then passed. The patient tolerated the procedure well and left the operating room in good condition. I think that the cause of the hydronephrosis is ureteral strictures. She probably has 2 of them, one in the proximal ureter at the level of the ureteropelvic junction and another one at the junction between the middle and the distal third. Those strictures have occurred are most likely secondary to organization of the retroperitoneal hematoma. The plan at this time is to keep the stent in place for several weeks. I will bring the patient back in for additional balloon dilation of both strictures. [id number]/[facility] #: [id number] ANTHONY
[2017-03-16] MEDS: Cefepime 2 GM in Dextrose(*) 2 GM/50 ML BAG IV SCH (01:50)
[2017-03-16] MEDS: Enoxaparin(*) 150 MG/ML 1 ML SYRINGE SUBCUT SCH (05:47)
[2017-03-16 06:04] LABS: Hematocrit 30 % (35-47); Mean Corpuscular HGB Conc 34 g/dl (31-36); Mean Corpuscular Hemoglobin 29 pg (27-31); Mean Corpuscular Volume 86 fL (80-97); Mean Platelet Volume 8 um3 (7.4-10.4); Red Blood Count 3.43 10^6/ul (4.0-5.4); Red Cell Distribution Width 16 % (10.5-15); White Blood Count 6.6 10^3/ul (3.5-10.8)
[2017-03-16 06:21] LABS: BUN/Creatinine Ratio 21.4 (8-20); Calcium 7.8 mg/dL (8.6-10.3); Potassium 3.6 mmol/L (3.5-5.0)
[2017-03-16 07:26] VITALS: BP 131/59
[2017-03-16] MEDS: Insulin LISPRO* 1 UNITS UNIT SUBCUT SCH (08:15)
[2017-03-16] MEDS: Atenolol TAB* 50 MG PO SCH (08:21)
[2017-03-16] MEDS: Nystatin TOP POWDER* 15 GM BTL TOPICAL SCH (08:22)
[2017-03-16] MEDS: SODIUM CHLORIDE 2% BOTH EYES PRN (08:22)
[2017-03-16] MEDS: LEVOTHYROXINE 50 MCG PO SCH (08:22)
[2017-03-16] MEDS: PTO:Brimonidine P 0.1%(NF) 1 DROP BTL BOTH EYES SCH (08:22)
[2017-03-16] MEDS: Aspirin EC Low Dose* 81 MG TAB.EC PO SCH (08:22)
--- NOTE | 2017-03-17 04:23 | DS ---
CC: Dr. Rojo; Dr. Osborn * DISCHARGE SUMMARY: DATE OF ADMISSION: 03/13/17 DATE OF DISCHARGE: 03/16/17 PRIMARY CARE PROVIDER: Dr. Rojo. UROLOGIST: Dr. Osborn. DISCHARGING PROVIDER: KINGS Fong SUPERVISING PHYSICIAN: Dr. Nydia Bryant * (DICTATED BY KINGS FONG) PRIMARY DISCHARGE DIAGNOSES: Acute pyelonephritis with subacute to chronic hydronephrosis with associated left ureteral strictures, status post retrograde pyelogram with left ureteral stent placement. SECONDARY DISCHARGE DIAGNOSES: 1. History of pulmonary embolism and deep venous thrombosis, chronically anticoagulated with Coumadin - INR subtherapeutic at the time of discharge and the patient is discharged with Lovenox bridge, instructions to repeat INR on 03/18/17. 2. History of coronary artery disease without evidence of acute coronary syndrome. 3. Diabetes - diet controlled at home. 4. Chronic wound of the right lower leg without associated infection. 5. Hypertension. 6. Morbid obesity with a body mass index of 48. DISCHARGE MEDICATIONS: 1. Aspirin 81 mg p.o. daily. 2. Atenolol 50 mg p.o. daily. 3. Atorvastatin 20 mg p.o. daily. 4. Alphagan 1 drop in both eyes twice daily. 5. Bumex 1 mg p.o. daily. 6. Ceftin 500 mg p.o. twice daily x7 days. 7. Lovenox 135 mg subcu twice daily for 7 days or until INR is greater than 2. 8. Levothyroxine 25 mcg p.o. daily. 9. Multivitamin 1 tablet p.o. daily. 10. Oxycodone 5 mg p.o. q.4 hours as needed for pain. 11. Potassium citrate 15 mEq p.o. twice daily. 12. Artificial tears. 13. Coumadin 11.5 mg p.o. daily. Medication changes: 1. Oxycodone as needed for pain. 2. Lovenox to bridge to an INR of greater than 2. 3. Cefuroxime x7 days. HOSPITAL IMAGING: CTA of the abdomen and pelvis shows stable severe left-sided hydronephrosis without appreciable obstructing ureteral stone. HOSPITAL COURSE: This is a 71-year-old morbidly obese female, who is legally blind with history of chronic kidney disease, history of PE and DVT, chronically anticoagulated on Coumadin, as well as hypertension and hyperlipidemia and coronary artery disease, who presented to the emergency department with complaints of left flank pain and nausea. She reported her flank pain as being a sudden onset and she had episodes of vomiting that followed the onset of pain. When she reached the emergency department, she had a moderate leukocytosis with a white blood cell count of 13,000. Initially, she was afebrile but reached the maximum temperature of about 100.1 degrees Fahrenheit shortly after admission. Initial chemistries were unremarkable. Urinalysis was suggestive of urinary tract infection. CTA of the abdomen and pelvis was performed, which demonstrated severe left-sided hydronephrosis, but this was not acute and had been noted on prior scans from over the summer. The patient had been recently treated for multiple urinary tract infections. The hydronephrosis did not appear to be due to an obstructing stone, but she does have a remote history of retroperitoneal hematoma and there was thought that perhaps she had some scarring as the result of this and retroperitoneum causing ureteral obstruction. For this reason, Urology was consulted and the patient was seen by Dr. Osborn. The patient underwent retrograde pyelogram with ureteral dilatation and stent placement with Dr. Osborn. Dr. Osborn noted significant purulent material that drained from the kidney after dilatation of the ureter. The patient's blood cultures remained negative. Her urine culture grew citrobacter with meropenem sensitivity. The patient was treated with cefepime during her hospitalization and will be discharged with Ceftin. DISPOSITION AND FOLLOWUP PLAN: The patient is being discharged to home where she lives with her . We will plan on additional 7 days of oral antibiotics. She does have a left ureteral stent in place. INR is subtherapeutic measured at 1.15 the day of discharge. She will be sent with full-dose Lovenox at 135 mg subcu twice daily to bridge until her INR is therapeutic. Recommended the patient that she repeat an INR on Friday and follow up with her primary care provider regarding instructions for continued use of Lovenox and/or dose adjustment of her Coumadin. The patient does require a followup with Dr. Osborn in approximately 2 weeks. It is unclear at this time as to whether the patient will be successful with maintaining patency of the left ureter after stent removal, but this will be discussed further with Dr. Osborn on an outpatient basis. MATHEW NESS, KINGS [id number]/[facility] #: [id number] [facility] HOSPITALAmber
== END 2017-03-16 12:15 | disposition home or self-care (01) | DRG 690 ==
LOC: ED 09:04 → SSU 12:15 → OBSVTOIN 03-14 14:14
PROVIDERS: ADMIT Internal Medicine; ATTEND Hospitalist
PROC: 02HV33Z Insertion of Infusion Device into Superior Vena Cava, Percutaneous Approach (ICD-10-PCS; 2017-03-14)
PROC: BT1FZZZ Fluoroscopy of Left Kidney, Ureter and Bladder (ICD-10-PCS; 2017-03-15)
PROC: 0T778DZ Dilation of Left Ureter with Intraluminal Device, Via Natural or Artificial Opening Endoscopic (ICD-10-PCS; principal; 2017-03-15 08:00)
DX: N13.6 Pyonephrosis (principal); E11.22 Type 2 diabetes mellitus with diabetic chronic kidney disease; E11.51 Type 2 diabetes mellitus with diabetic peripheral angiopathy without gangrene; I48.91 Unspecified atrial fibrillation; G40.909 Epilepsy, unspecified, not intractable, without status epilepticus; B96.89 Other specified bacterial agents as the cause of diseases classified elsewhere; E03.9 Hypothyroidism, unspecified; E78.5 Hyperlipidemia, unspecified; E66.01 Morbid (severe) obesity due to excess calories; F84.0 Autistic disorder; Z68.42 Body mass index [BMI] 45.0-49.9, adult; F32.9 Major depressive disorder, single episode, unspecified; G43.909 Migraine, unspecified, not intractable, without status migrainosus; N18.3 Chronic kidney disease, stage 3 (moderate); Z96.653 Presence of artificial knee joint, bilateral; Z96.611 Presence of right artificial shoulder joint; I25.10 Atherosclerotic heart disease of native coronary artery without angina pectoris; M19.90 Unspecified osteoarthritis, unspecified site; H40.9 Unspecified glaucoma; H91.93 Unspecified hearing loss, bilateral; I12.9 Hypertensive chronic kidney disease with stage 1 through stage 4 chronic kidney disease, or unspecified chronic kidney disease; I87.8 Other specified disorders of veins; K21.9 Gastro-esophageal reflux disease without esophagitis; N20.0 Calculus of kidney; N39.0 Urinary tract infection, site not specified; H54.8 Legal blindness, as defined in USA; Z98.41 Cataract extraction status, right eye; Z82.49 Family history of ischemic heart disease and other diseases of the circulatory system; Z88.2 Allergy status to sulfonamides; Z88.8 Allergy status to other drugs, medicaments and biological substances; Z87.442 Personal history of urinary calculi; Z88.1 Allergy status to other antibiotic agents; Z91.040 Latex allergy status; Z90.710 Acquired absence of both cervix and uterus; Z90.49 Acquired absence of other specified parts of digestive tract; Z98.42 Cataract extraction status, left eye; Z86.711 Personal history of pulmonary embolism; Z97.4 Presence of external hearing-aid; I25.2 Old myocardial infarction; Z83.3 Family history of diabetes mellitus; Z72.89 Other problems related to lifestyle; Z80.6 Family history of leukemia; Z83.511 Family history of glaucoma; Z86.718 Personal history of other venous thrombosis and embolism; Z79.82 Long term (current) use of aspirin
CPT/HCPCS: 36415; 36569; 74176; 74420; 76937; 77001; 80048; 80053; 81003; 81015; 82550; 83605; 83690; 83880; 85025; 85610; 86140; 87040; 87073; 87077; 87086; 87106; 87186; 93005; A9270-GY; G0378; J0692; J0696; J1100; J1642; J1650; J2185; J2250; J2270; J2405; J2704; J3010

== ENCOUNTER 2017-05-15 14:42 | Emergency (ER) | payer MEDICARE, BC ==
--- NOTE | 2017-05-15 16:03 | RAD ---
INDICATION: Vascular ulcer RIGHT lower extremity for 10 weeks. Previous bilateral lower leg DVT and pulmonary embolism. COMPARISON: March 08, 2015 TECHNIQUE: Maya scale, color Doppler, and spectral analysis of the deep veins of the RIGHT lower extremity. Vessel compression, phasicity, and augmentation assessed. REPORT: Acoustic window at the calf is limited due to open wound and body habitus. The RIGHT common femoral, great saphenous, profunda femoral, femoral, popliteal, duplicated peroneal, and posterior tibial veins are patent. Patency of the LEFT common femoral vein documented. IMPRESSION: No evidence for RIGHT lower extremity deep venous thrombosis.
[2017-05-15] MEDS ORDERED: Cefepime(*) 2 GM in NS 0.9% 50 ML* 50 ML IVPB ONE (18:41)
[2017-05-15] MEDS ORDERED: Ondansetron INJ* 2 MG/ML VIAL IV ONE (18:42)
[2017-05-15] MEDS ORDERED: Morphine INJ* 4 MG/ML 1 ML CARPUJECT IV ONE (18:42)
[2017-05-15 19:00] LABS: ABS Basophils 0.1 10^3/ul (0-0.2); ABS Eosinophils 0.2 10^3/ul (0-0.6); ABS Lymphocytes 1.7 10^3/ul (1.0-4.8); ABS Monocytes 0.8 10^3/ul (0-0.8); ABS Neutrophils 5.9 10^3/ul (1.5-7.7); ABS Nucleated RBC 0 10^3/ul; Eosinophil % 2.3 % (0-6); Hematocrit 37 % (35-47); Lymphocyte % 19.7 % (25-47); Mean Corpuscular HGB Conc 33 g/dl (31-36); Mean Corpuscular Hemoglobin 28 pg (27-31); Mean Corpuscular Volume 85 fL (80-97); Mean Platelet Volume 8 um3 (7.4-10.4); Nucleated Red Blood Cells % 0; Platelet Count 337 10^3/ul (150-450); Red Blood Count 4.29 10^6/ul (4.0-5.4); Red Cell Distribution Width 17 % (10.5-15); White Blood Count 8.7 10^3/ul (3.5-10.8)
[2017-05-15 19:15] LABS: EGFR Non-African American 33.8 (>60)
--- NOTE | 2017-05-15 20:04 | ED ---
Skin Complaint - HPI Summary HPI Summary: Patient presents from [facility] with worsening bilateral edema, erythema, warmth and ulceration to the right lateral lower leg. She states they have been using topical wound care, without the use of antibiotics. After arrival today, they sent her here for IV antibiotics and further evaluation. She has not had the wound cultured. Denies fevers, sweats, chills. Denies any other systemic illness. She endorses painful ulcerative lesions which are purulent with yellow creamy discharge. No serosanguineous fluid. Likely the cause of poor circulation caused by venous stasis. - History of Current Complaint Chief Complaint: EDExtremityLower Time Seen by Provider: 05/15/17 18:39 Stated Complaint: WOUND ON RIGHT LEG, SENT FROM [facility] Hx Obtained From: Patient Hx Last Menstrual Period: N/A Onset/Duration: Started Hours Ago Skin Exposure Onset/Duration: Hours Ago Timing: Constant Onset Severity: Moderate Current Severity: Moderate Pain Intensity: 6 Pain Scale Used: 0-10 Numeric Skin Location: Discrete, Leg Character: Swelling, Pruritus, Pain, Redness Associated Signs & Symptoms: Drainage - Additional Pertinent History Primary Care Physician: YENNI - Allergy/Home Medications Allergies/Adverse Reactions: Allergies Allergy/AdvReac Type Severity Reaction Status Date / Time MS Levofloxacin Allergy Severe Anaphylatic Verified 05/15/17 19:11 [From Levaquin] Shock MS Latex [Latex] Allergy Intermediate ITCHY Verified 05/15/17 19:11 PIMPLE LIKE RASH MS Sulfa Drugs [Sulfa Drugs] Allergy Intermediate Hives Verified 05/15/17 19:11 MS Levothyroxine Allergy Mild Rash And Verified 05/15/17 19:11 [Levothyroxine] Itching Home Medications: Home Medications Multivitamins/Minerals TAB* [Thera M Plus TAB*] 1 tab PO DAILY 05/15/17 [ History Confirmed 05/15/17] Warfarin TAB(*) [Coumadin TAB(*)] 7.5 mg PO DAILY@1700 05/15/17 [History Confirmed 05/15/17] PMH/Surg Hx/FS Hx/Imm Hx Previously Healthy: No Endocrine/Hematology History: Reports: Hx Diabetes - borderline DM, Hx Thyroid Disease - hypothyroidism Cardiovascular History: Reports: Hx Coronary Artery Disease, Hx Deep Vein Thrombosis, Hx Embolism - multiple PEs, Hx Hypercholesterolemia, Hx Hypertension , Hx Peripheral Vascular Disease, Other Cardiovascular Problems/Disorders - cardiac cath Respiratory History: Reports: Hx Pulmonary Embolism - POST OP AFTER SHOULDER REPLACEMENT 2014 Denies: Hx Asthma, Hx Chronic Obstructive Pulmonary Disease (COPD) GI History: Denies: Hx Gall Bladder Disease - gall bladder removed, Hx Ulcer, Other GI Disorders History: Reports: Hx Kidney Infection, Hx Kidney Stones - left, Hx Renal Disease - LT URETERAL STRICTURE. LT STENT, Other Problems/Disorders - Kidney stones July 2011 Denies: Hx Dialysis Musculoskeletal History: Reports: Hx Arthritis, Other Musculoskeletal History - Bilateral knee replacements, R shoulder replacement, fractured R elbow Sensory History: Reports: Hx Cataracts, Hx Contacts or Glasses, Hx Glaucoma, Hx Legally Blind, Hx Vision Problem - Pt is legally blind, Hx Hearing Aid - bilat, Hx Hearing Problem, Other Sensory Impairments Opthamlomology History: Reports: Hx Cataracts, Hx Contacts or Glasses, Hx Glaucoma, Hx Legally Blind, Hx Vision Problem - Pt is legally blind, Other Sensory Impairments Neurological History: Reports: Hx Migraine - Hx of none recently, Hx Seizures - Hx of, none recently, Other Neuro Impairments/Disorders - Hx seizures, none recently Psychiatric History: Reports: Hx Autism Denies: Hx Anxiety, Hx Depression - Cancer History Hx Chemotherapy: No Hx Radiation Therapy: No - Surgical History Surgery Procedure, Year, and Place: Hysterectomy September 2014, 1970 R eye cataract removed, 1989 L eye cataract removed, bilateral knee replacements, R shoulder replacement, 2011 cholecystectomy, plate/screws in R elbow, kidney stone treatment x 3 august 09 3 kidney stones remover and litho. done on others bilaterly. Hx Anesthesia Reactions: No - Immunization History Hx Pertussis Vaccination: No Immunizations Up to Date: Unable to Obtain/Confirm Infectious Disease History: No Infectious Disease History: Denies: Hx Hepatitis, Hx Human Immunodeficiency Virus (HIV), Traveled Outside the [place] in Last 30 Days Comment Only: History Other Infectious Disease - kidney infection - Family History Known Family History: Positive: Cardiac Disease, Hypertension - Social History Occupation: Unemployed Lives: With Family Alcohol Use: Rare Alcohol Amount: 3-4 PER YEAR Hx Substance Use: No Substance Use Type: Reports: None Hx Tobacco Use: No Smoking Status (MU): Never Smoked Tobacco Have You Smoked in the Last Year: No Review of Systems Constitutional: Negative Negative: Fever, Chills, Fatigue, Skin Diaphoresis Eyes: Negative Cardiovascular: Negative Genitourinary: Negative Positive: no symptoms reported, see HPI Positive: Arthralgia, Myalgia Positive: Other - erythematous, warm, bilateral edematous venous stasis with right lateral lower leg ulceration with yellow purulent drainage Neurological: Negative All Other Systems Reviewed And Are Negative: Yes Physical Exam Triage Information Reviewed: Yes Vital Signs On Initial Exam: Initial Vitals Temp Pulse Resp BP Pulse Ox 96.8 F 84 19 164/59 97 05/15/17 14:55 05/15/17 14:55 05/15/17 14:55 05/15/17 14:55 05/15/17 14:55 Vital Signs Reviewed: Yes Appearance: Positive: Well-Appearing, Well-Nourished Skin: Positive: Warm, Skin Color Reflects Adequate Perfusion, Weeping Skin/ Lesions, Lymphangitis, Other - erythematous, warm, bilateral edematous venous stasis with right lateral lower leg ulceration with yellow purulent drainage Head/Face: Positive: Normal Head/Face Inspection Eyes: Positive: EOMI, ZANDER Neck: Positive: Supple, Nontender, No Lymphadenopathy Respiratory/Lung Sounds: Positive: Clear to Auscultation, Breath Sounds Present Cardiovascular: Positive: Pulses are Symmetrical in both Upper and Lower Extremities Neurological: Positive: Sensory/Motor Intact, Alert, Oriented to Person Place, Time Psychiatric: Positive: Affect/Mood Appropriate AVPU Assessment: Alert Diagnostics - Vital Signs Vital Signs Temp Pulse Resp BP Pulse Ox 05/15/17 19:15 18 05/15/17 18:27 72 98 05/15/17 18:25 149/73 05/15/17 17:38 98.5 F 75 16 171/58 98 05/15/17 14:55 96.8 F 84 19 164/59 97 - Laboratory Lab Results: Lab Results 05/15/17 05/15/17 Range/Units 18:47 18:47 WBC 8.7 (3.5-10.8) 10^3/ul RBC 4.29 (4.0-5.4) 10^6/ul Hgb 12.0 (12.0-16.0) g/dl Hct 37 (35-47) % MCV 85 (80-97) fL MCH 28 (27-31) pg MCHC 33 (31-36) g/dl RDW 17 H (10.5-15) % Plt Count 337 (150-450) 10^3/ul MPV 8 (7.4-10.4) um3 Neut % (Auto) 68.0 (38-83) % Lymph % (Auto) 19.7 L (25-47) % Norman % (Auto) 8.8 (1-9) % Eos % (Auto) 2.3 (0-6) % Baso % (Auto) 1.2 (0-2) % Absolute Neuts (auto) 5.9 (1.5-7.7) 10^3/ul Absolute Lymphs (auto) 1.7 (1.0-4.8) 10^3/ul Absolute Monos (auto) 0.8 (0-0.8) 10^3/ul Absolute Eos (auto) 0.2 (0-0.6) 10^3/ul Absolute Basos (auto) 0.1 (0-0.2) 10^3/ul Absolute Nucleated RBC 0 10^3/ul Nucleated RBC % 0 Sodium 139 (133-145) mmol/L Potassium 4.2 (3.5-5.0) mmol/L Chloride 103 (101-111) mmol/L Carbon Dioxide 30 (22-32) mmol/L Anion Gap 6 (2-11) mmol/L BUN 39 H (6-24) mg/dL Creatinine 1.52 H (0.51-0.95) mg/dL Est GFR ( Amer) 43.5 (>60) Est GFR (Non-Af Amer) 33.8 (>60) BUN/Creatinine Ratio 25.7 H (8-20) Glucose 119 H (70-100) mg/dL Calcium 9.5 (8.6-10.3) mg/dL Total Bilirubin 0.30 (0.2-1.0) mg/dL AST 16 (13-39) U/L ALT 13 (7-52) U/L Alkaline Phosphatase 62 (34-104) U/L C-Reactive Protein 22.62 H (< 5.00) mg/L Total Protein 7.4 (6.4-8.9) g/dL Albumin 3.7 (3.2-5.2) g/dL Globulin 3.7 (2-4) g/dL Albumin/Globulin Ratio 1.0 (1-3) Result Diagrams: 05/15/17 18:47 05/15/17 18:47 Lab Statement: Any lab studies that have been ordered have been reviewed, and results considered in the medical decision making process. Course/Dx - Course Course Of Treatment: During the course of treatment, the patient is evaluated for right lower leg edema, erythema, warmth and ulcerations which are producing purulent yellow creamy discharge with surrounding erythema and mild bleeding. She is being seen by the wound clinic in [place] who referred her to the ED today for IV antibiotics. She has also recently switched from her old wound care dressings to Surgicel. She endorses 9 out of 10 pain, has oxycodone at home for pain control. Wound culture obtained, labs obtained and blood cultures. Labs within normal limits including white count. Cefepime 2 g IV given. The ulceration has yellow drainage, which could be an indicator of worsening cellulitic infection which is now purulent versus epithelialization which is also present. Due to worsening ulceration, patient is placed on Keflex 14 days. Wound culture obtained and awaiting results. Silver sulfadiazine topical applied with Telfa dressing and gauze wrapped. I have encouraged her to follow-up with wound clinic twice per week until symptoms improve. She is also to follow up with Dr. Graham (infectious disease) for further evaluation. She is encouraged to continue the use of her pneumatic leg devices and compression hose. Bilateral leg swelling, weeping plaques, leathery skin most likely result of venous stasis. - Differential Diagnoses - Skin Complaint Differential Diagnoses: Lymphangitis - Diagnoses Provider Diagnoses: Cellulitis Discharge - Discharge Plan Condition: Stable Disposition: HOME Prescriptions: Cephalexin CAP* [Keflex CAP*] 500 mg PO QID #56 cap MDD 4 hydrOXYzine HCL TAB* [Atarax 25 MG TAB*] 25 mg PO QID PRN #20 tab MDD 4 PRN Reason: Itching Patient Education Materials: Cellulitis (ED) Referrals: Popeye Rojo MD [Primary Care Provider] - Jasiel OBANDO,Ronaldo Campoverde [Medical Doctor] - Additional Instructions: Keflex 4 times daily 14 days Please follow-up with Dr. Graham Call his office tomorrow to schedule an appointment Please call the wound clinic I recommend you be seen twice a week until symptoms improve Continue with silvercel dressings Continue with compression hose and compression device As discussed, we will call with any antibiotic change if needed
[2017-05-15] MEDS ORDERED: Silver Sulfadiazine 1%* 20 GM TOPICAL ONE (20:43)
[2017-05-15] MEDS ORDERED: Cephalexin CAP* 500 MG PO ONE (20:44)
[2017-05-15 21:37] VITALS: BP 155/66
== END 2017-05-15 21:15 | disposition home or self-care (01) ==
LOC: ED 14:42
DX: L03.115 Cellulitis of right lower limb (principal); Z88.3 Allergy status to other anti-infective agents; Z88.2 Allergy status to sulfonamides; Z88.8 Allergy status to other drugs, medicaments and biological substances
CPT/HCPCS: 36415; 80053; 85025; 86140; 87040; 87070; 87076; 87077; 87186; 87205; 96365; 96375; 99284; A9270-GY; J0692; J2270; J2405

== ENCOUNTER 2017-06-03 08:01 | Inpatient (IN) | payer MEDICARE, BC ==
--- OUTSIDE RECORDS SUMMARY | 2017-06-03 08:17 | XMS REPORT ---
:1945 External Reference #:[id number] Author Organization [employer] Address [address] [address] Phone [phone] Care Team Providers Name Role Phone Popeye Rojo MD Primary Care Physician Unavailable Payers Type Date Identification Numbers Payment Provider Subscriber Medicare Primary Policy Number: [id number] Medicare Christel Zhao PayID: [id number] [address] [place] [address] Medigap Part B Policy Number: [id number] BS [employer]ets Christel Zhao PayID: [id number] [address] [address] [place] [address] Problems Date Description Provider Status Onset: 05/18/2012 Electrocardiogram abnormal Aby Balbuena M.D. Active Onset: 05/18/2012 Hyperlipidemia Aby Balbuena M.D. Active Onset: 05/18/2012 Chest pain Aby Balbuena M.D. Active Onset: 05/18/2012 Essential hypertension Aby Balbuena M.D. Active Onset: 05/18/2012 Dyspnea Aby Balbuena M.D. Active Onset: 05/18/2012 Edema Aby Balbuena M.D. Active Onset: 05/18/2012 Morbid obesity Aby Balbuena M.D. Active Onset: 06/18/2012 Coronary arteriosclerosis Aby Balbuena M.D. Active Onset: 04/12/2013 Benign essential hypertension Aby Balbuena M.D. Active Onset: 04/12/2013 Mitral valve disorder Aby Balbuena M.D. Active Onset: 01/04/2014 Malignant essential hypertension Aby Balbuena M.D. Active Onset: 04/04/2015 Migraine without aura Isabel Vang M.D. Active Onset: 04/04/2015 Seizure Isabel Vang M.D. Active Family History Date Family Member(s) Problem(s) Comments Father due to Leukemia () Mother dementia Mother Chronic Obstructive Pulmonary Disease (COPD) First Daughter Diabetes, Insulin Dependent Second Daughter Alive And Well First Sister joint problems Second Sister Deep Venous Thrombosis (DVT) Maternal Grandfather due to [place] () Maternal Grandmother due to child () Social History Type Date Description Comments Marital Status Lives With Occupation Retired Cigarette Use Never Smoked Cigarettes Cigars Never Smoked Cigars Pipe Never Smoked A Pipe Smokeless Tobacco Never Used Smokeless Tobacco ETOH Use Rarely consumes alcohol Smoking Patient has never smoked Recreational Drug Use Denies Drug Use Daily Caffeine Does Not Consume Caffeine Exercise Type/Frequency Does not exercise Allergies, Adverse Reactions, Alerts Date Description Reaction Status Severity Comments 05/18/2012 Latex rash active 05/18/2012 Sulfa Antibiotics hives active 05/18/2012 Levaquin seizure, "almost killed me" active Severe 04/04/2015 Levothyroxine active Medications Medication Date Status Form Strength Qnty SIG Indications Ordering Provider Atenolol / Active Tablets 50mg 30tab 1 po qd Unknown 0000 s Lipitor / Active Tablets 20mg 90tab one tab Unknown 0000 s po qhs Alphagan P / Active Solution 0.1% 2gtts Unknown 0000 both eyes daily One Daily For 00/ Active Tablets daily Unknown Women 0000 Aspir-Low / Active Tablets DR 81mg 30tab 1 po qd Unknown 0000 s Synthroid / Active Tablets 25mcg 30tab 1 by Unknown 0000 s mouth every day Warfarin Sodium / Active Tablets 7.5mg take as Unknown 0000 directed - taking 7.5mg daily except Tuesdays, 1.5 tab (monitore d by Dr. Rojo) Urocit-K 15 / Active Tablets ER 15Meq 1 tab by Unknown 0000 (1620 mg) mouth twice daily Bumetanide / Active Tablets 1mg once Mid, 0000 daily MD Popeye Nitrofurantoin / Active Capsules 100mg Husseini, Monohydrate/Macr 0000 MD Agustin ocrystals Augmentin 11/26/ Hx Tablets 875-125mg one by Unknown 2017 mouth every 12 hours for ten days Topamax 04/04/ Hx Tablets 25mg 60tab 1-2 tabs G40.909 Isabel Ferguson 2015 s by mouth Taj, 09/23/ at M.DGlenroy 2016 bedtime as directed Zomig 04/06/ Hx Tablets 2.5mg 12tab 1 tab by Isabel Ferguson 2012 mouth as Taj, 10/31/ needed; M.Gilles 2016 repeat in 2 hrs. x 1 (no longer taking) Oxycodone/Acetam 08/04/ Hx Tablets 5-325mg 60tab 1-2 tabs Pradeep inophen 2012 - po q 4 Young, 04/06/ hrs prn M.DGlenroy 2012 pain Topamax 07/08/ Hx Tablets 50mg 90tab 2 po at Isabel Ferguson 2012 hs Taj, 09/23/ M.D. 2016 Naproxen / Hx Tablets 500mg 60tab 1 po tid Unknown - s prn 2012 Hydrocodone/Acet / Hx Tablets 5-325mg 40tab 1-2 po Unknown aminophen - s qid prn 2012 Tizanidine HCL / Hx Capsules 4mg 30cap tid prn Unknown 0000 - s 2012 Fluoxetine / Hx Capsules 10mg 30cap 1-3 tabs Unknown - s every day 01/04/ prn 2013 (usually 1) Zaroxolyn / Hx Tablets 5mg 30tab 1 tab po Unknown - s 1/2 hour 05/18/ prior to 2012 bumex dose qod Triamcinolone / Hx Cream 0.1% 30gm apply bid Unknown Acetonide 0000 - until clear 2013 Zomig 00/00/ Hx Tablets 2.5mg 12tab 1 tab by Unknown 0000 - s mouth as 04/06/ needed 2012 for h/a Bumetanide / Hx Tablets 1mg 90tab 1 po qd Unknown 0000 - s 2016 Betoptic-S / Hx Suspension 0.25% 1 drop in Unknown 0000 - each eye 04/06/ bid 2012 Topamax / Hx Tablets 150mg 60tab 1 po q hs Unknown 0000 - s 2012 Karolina 128 / Hx Solution 2% several Unknown 0000 - drops in 06/01/ OU daily 2017 and prn Diclofenac / Hx Tablets DR 75mg 60tab 1 tab by Unknown Sodium 0000 - s mouth 06/18/ daily 2012 Lisinopril / Hx Tablets 5mg 1 by Unknown 0000 - mouth 09/23/ every day 2016 Misoprostol 00/ Hx Tablets 200mcg Unknown 0000 - 2014 Xarelto / Hx Tablets 20mg 1 by Unknown 0000 - mouth 09/23/ every day 2016 Amoxicillin/Clav 00/ Hx Tablets 875-125mg 1 tablet Unknown ulanate 0000 - po b.i.d Potassium 06/18/ x 10 days 2015 ( last day taken today 06/19/15) Hydrocodone-Acet / Hx Tablets 7.5-325mg 1 tablet Unknown aminophen 0000 - po every 09/23/ 6 hours 2016 as needed for pain Potassium / Hx Tablets ER 1 by Unknown Citrate ER 0000 - mouth 10/31/ twice a 2016 day Cefuroxime / Hx Tablets 250mg one po at Unknown Axetil 0000 - hs 2016 Amoxicillin/Clav 00/ Hx Tablets 875-125mg take one Unknown ulanate 0000 - tablet Potassium 10/03/ twice 2016 daily Doxycycline / Hx Capsules 100mg 1 by Unknown Monohydrate 0000 - mouth 10/03/ twice a 2016 day Oxycodone-Acetam / Hx Tablets 5-325mg 1 tab by Unknown inophen 0000 - mouth 09/23/ every 4 2017 hours as needed for pain Trimethoprim 00/ Hx Tablets 100mg one by Unknown 0000 - mouth 01/06/ twice a 2016 day Medications Administered in Office Medication Date Status Form Strength Qnty SIG Indications Ordering Provider Depomedrol Administered Injection Pradeep 80MG Domingo German M.D. Vital Signs Date Vital Result Comment 06/02/2017 Height 63.25 inches 5'3.25" Weight 335.00 lb Heart Rate 86 /min BP Systolic Sitting 132 mmHg BP Diastolic Sitting 70 mmHg Respiratory Rate 16 /min Body Temperature 98.8 F BMI (Body Mass Index) 58.9 kg/m2 02/18/2017 Height 63.25 inches 5'3.25" Weight 324.00 lb Heart Rate 68 /min BP Systolic Sitting 140 mmHg BP Diastolic Sitting 94 mmHg Respiratory Rate 20 /min Pain Level 0 BMI (Body Mass Index) 56.9 kg/m2 01/07/2017 Height 66.5 inches 5'6.50" Weight 317.00 lb Heart Rate 72 /min BP Systolic Sitting 146 mmHg BP Diastolic Sitting 86 mmHg Respiratory Rate 16 /min Body Temperature 98.1 F BMI (Body Mass Index) 50.4 kg/m2 01/03/2017 Height 66.5 inches 5'6.50" Weight 317.00 lb with shoes Heart Rate 68 /min BP Systolic Sitting 146 mmHg LA lrg cuff BP Diastolic Sitting 90 mmHg LA lrg cuff BMI (Body Mass Index) 50.4 kg/m2 Ejection Fraction 60%-65% Alin 12/11/16 11/01/2016 Height 66.5 inches 5'6.50" Weight 311.38 lb with shoes Heart Rate 84 /min BP Systolic Sitting 164 mmHg LA lrg cuff BP Diastolic Sitting 90 mmHg LA lrg cuff BMI (Body Mass Index) 49.5 kg/m2 Ejection Fraction 50% - 55% echo 10/21/16 10/03/2016 Height 66.5 inches 5'6.50" Weight 296.00 lb Heart Rate 84 /min BP Systolic Sitting 126 mmHg BP Diastolic Sitting 78 mmHg Respiratory Rate 16 /min BMI (Body Mass Index) 47.1 kg/m2 09/24/2016 Height 66.5 inches 5'6.50" Weight 304.25 lb Heart Rate 74 /min BP Systolic Sitting 128 mmHg BP Diastolic Sitting 64 mmHg Respiratory Rate 16 /min Body Temperature 97.6 F BMI (Body Mass Index) 48.4 kg/m2 04/04/2016 Height 66.5 inches 5'6.50" Weight 311.00 lb Heart Rate 78 /min BP Systolic Sitting 134 mmHg BP Diastolic Sitting 86 mmHg Respiratory Rate 20 /min BMI (Body Mass Index) 49.4 kg/m2 03/14/2016 Height 66.5 inches 5'6.50" Weight 307.75 lb with shoes Heart Rate 76 /min BP Systolic Sitting 142 mmHg LA lrg cuff BP Diastolic Sitting 92 mmHg LA lrg cuff BMI (Body Mass Index) 48.9 kg/m2 Ejection Fraction 55% - 60% echo 08/26/14 06/19/2015 Height 66.5 inches 5'6.50" Weight 316.00 lb with shoes Heart Rate 80 /min BP Systolic Sitting 143 mmHg LA Lg cuff BP Diastolic Sitting 94 mmHg LA Lg cuff Respiratory Rate 17 /min BMI (Body Mass Index) 50.2 kg/m2 Ejection Fraction 55-60% date 08/26/14 ECHO 04/04/2015 Height 66.5 inches 5'6.50" Weight 319.00 lb Patient reported just weighed Heart Rate 76 /min BP Systolic Sitting 132 mmHg BP Diastolic Sitting 74 mmHg Respiratory Rate 16 /min BMI (Body Mass Index) 50.7 kg/m2 08/09/2014 Height 66.5 inches 5'6.50" Weight 311.75 lb Heart Rate 80 /min BP Systolic 126 mmHg L forearm large cuff BP Diastolic 80 mmHg L forearm large cuff BMI (Body Mass Index) 49.6 kg/m2 Ejection Fraction 55-60% 04/22/13 ECHO 04/05/2014 Height 66.5 inches 5'6.50" Weight 313.00 lb Heart Rate 64 /min BP Systolic Sitting 130 mmHg BP Diastolic Sitting 78 mmHg Respiratory Rate 18 /min BMI (Body Mass Index) 49.8 kg/m2 01/04/2014 Height 66.5 inches 5'6.50" Weight 319.00 lb Heart Rate 76 /min BP Systolic Sitting 190 mmHg LA lg cuff BP Diastolic Sitting 100 mmHg LA lg cuff Respiratory Rate 18 /min BMI (Body Mass Index) 50.7 kg/m2 04/12/2013 Height 66.5 inches 5'6.50" Weight 310.00 lb Heart Rate 68 /min BP Systolic 132 mmHg BP Diastolic 72 mmHg BMI (Body Mass Index) 49.3 kg/m2 04/06/2013 Heart Rate 88 /min BP Systolic Sitting 140 mmHg BP Diastolic Sitting 90 mmHg Respiratory Rate 18 /min 06/18/2012 Height 66 inches 5'6" Weight 317.00 lb Heart Rate 80 /min BP Systolic Sitting 160 mmHg BP Diastolic Sitting 100 mmHg Respiratory Rate 24 /min BMI (Body Mass Index) 51.2 kg/m2 05/18/2012 Height 66 inches 5'6" Weight 320.00 lb Heart Rate 80 /min BP Systolic Sitting 170 mmHg BP Diastolic Sitting 100 mmHg Respiratory Rate 24 /min BMI (Body Mass Index) 51.6 kg/m2 Results Test Date Test Result H/L Range Note Urine Culture And 05/29/2017 Urine Culture SEE RESULT 1, 2 Sensitivities BELOW CBC Auto Diff 03/13/2017 White Blood Count 13.6 10^3/uL High 3.5-10.8 Red Blood Count 4.78 10^6/uL 4.0-5.4 Hemoglobin 13.2 g/dL 12.0-16.0 Hematocrit 41 % 35-47 Mean Corpuscular Volume 86 fL 80-97 Mean Corpuscular Hemoglobin 28 pg 27-31 Mean Corpuscular HGB Conc 32 g/dL 31-36 Red Cell Distribution Width 17 % High 10.5-15 Platelet Count 228 10^3/uL 150-450 Mean Platelet Volume 9 um3 7.4-10.4 Abs Neutrophils 11.3 10^3/uL High 1.5-7.7 Abs Lymphocytes 1.2 10^3/uL 1.0-4.8 Abs Monocytes 1.0 10^3/uL High 0-0.8 Abs Eosinophils 0.1 10^3/uL 0-0.6 Abs Basophils 0.1 10^3/uL 0-0.2 Abs Nucleated RBC 0.01 10^3/uL Granulocyte % 82.7 % 38-83 Lymphocyte % 8.6 % Low 25-47 Monocyte % 7.5 % 1-9 Eosinophil % 0.6 % 0-6 Basophil % 0.6 % 0-2 Nucleated Red Blood Cells % 0.1 Laboratory test finding 03/13/2017 Lactic Acid 1.5 mmol/L 0.5-2.0 3 Comp Metabolic Panel 03/13/2017 Sodium 140 mmol/L 133-145 Potassium 4.0 mmol/L 3.5-5.0 Chloride 104 mmol/L 101-111 Co2 Carbon Dioxide 28 mmol/L 22-32 Anion Gap 8 mmol/L 2-11 Glucose 163 mg/dL High 70-100 Blood Urea Nitrogen 41 mg/dL High 6-24 Creatinine 1.63 mg/dL High 0.51-0.95 BUN/Creatinine Ratio 25.2 High 8-20 Calcium 9.7 mg/dL 8.6-10.3 Total Protein 7.7 g/dL 6.4-8.9 Albumin 3.8 g/dL 3.2-5.2 Globulin 3.9 g/dL 2-4 Albumin/Globulin Ratio 1.0 1-3 Total Bilirubin 0.40 mg/dL 0.2-1.0 Alkaline Phosphatase 70 U/L 34-104 Alt 16 U/L 7-52 Ast 14 U/L 13-39 Egfr Non- 31.2 >60 Egfr 40.1 >60 4 Laboratory test finding 03/13/2017 Lipase 21 U/L 11.0-82.0 Creatine Kinase(CK) 35 U/L 10-223 C Reactive Protein 13.44 mg/L High < 5.00 5 B-Type Natriuretic Peptide BNP 62 pg/mL 6 Inr/Protime 03/13/2017 Inr 1.90 High 0.77-1.02 7 Urine Culture And 12/20/2016 Urine Culture SEE RESULT BELOW 8, 9 Sensitivities Urine Culture And 08/20/2012 Urine Culture (SEE NOTE) 10 Sensitivities Type & Screen 08/20/2012 Patient Blood A Negative Type Antibody Screen NEGATIVE Basic Metabolic Panel 08/20/2012 Sodium 148 mmol/L High 133-145 Potassium 4.6 mmol/L 3.5-5.0 Chloride 113 mmol/L High 101-111 Co2 Carbon Dioxide 29.0 mmol/L 22-32 Anion Gap 6.0 mmol/L 2-11 Glucose 82 mg/dL 70-100 Blood Urea Nitrogen 27 mg/dL High 6-24 Creatinine 0.90 mg/dL 0.50-1.40 BUN/Creatinine Ratio 30.0 High 8-20 Calcium 9.6 mg/dL 8.1-9.9 Egfr Non- 62.8 >60 Egfr 80.8 >60 11 Urine Microscopic 08/20/2012 Urine WBC None Seen None Seen Urine RBC None Seen None Seen Crystals Urine Amorphous /lpf None Seen Urinalysis 08/20/2012 Urine Color Yellow Urine Appearance Turbid Urine Specific [place] 1.019 1.010-1.030 Urine Esterase Trace Negative Urine Nitrate Negative Negative Urine Urobilinogen Negative E.U./dL Negative Urine Protein Negative mg/dL Negative Urine pH 7.5 5-9 Urine Blood Negative Negative Urine Ketones Negative mg/dL Negative Urine Bilirubin Negative Negative Urine Glucose Negative mg/dL Negative 1 [id number] 2 SEE RESULT BELOW Name: CHRISTEL ZHAO : [address]: Agustin Osborn MD Acct: [id number] Unit: [id number] AGE: 71 Location: [facility] Re05/29/17 SEX: F Status: REG REF SPEC: [id number] ALCIDES: 05/29/17-1450 [facility] DR: Agustin Osborn MD REQ: [id number] RECD: 05/29/17 STATUS: ANGEL SMITH DR: Ronaldo Weathers MD _ SOURCE: URINE SPDESC: ORDERED: Urine Culture COMMENTS: [id number] QUERIES: Urine Source: Random Procedure Result Reported Site Urine Culture Final 06/01/17- 821 ML Organism 1 PROTEUS MIRABILIS [place] Count 25-50,000 (Moderate) CFU/ML 1. PROTEUS MIRABILIS M.I.C. RX --------- ------ Ampicillin >=32 R Cefazolin >=64 R Cefepime S Ceftriaxone R Ciprofloxacin <=0.25 S Gentamicin <=1 S Levofloxacin <=0.12 S Meropenem <=0.25 S Nitrofurantoin 128 R Tetracycline >=16 R Pipercillin/Tazobactam 32 I Trimethoprim/Sulfamethoxazole <=20 S Aztreonam S Contact the Microbiology Department for any additional antibiotic reporting. * ML - MAIN LAB ([facility]) . END OF REPORT * ML=Testing performed at Main Lab DEPARTMENT OF PATHOLOGY, [address] [place] [address] Arron Argueta M.D. Director [facility] # [id number] [facility] Severe Sepsis and Septic Shock Management Bundle Measure requires all lactic acids initially measuring >2.0 mmol/L be repeated. 4 Because ethnic data is not always readily available, this report includes an eGFR for both -Americans and non- Americans. The National Kidney Disease Education Program (NKDEP) does not endorse the use of the MDRD equation for patients that are not between the ages of 18 and 70, are , have extremes of body size, muscle mass, or nutritional status, or are non- or non-. According to the National Kidney Foundation, irrespective of diagnosis, the stage of the disease is based on the level of kidney function: Stage Description GFR(mL/min/1.73 m(2)) 1 Kidney damage with normal or decreased GFR 90 2 Kidney damage with mild decrease in GFR 60-89 3 Moderate decrease in GFR 30-59 4 Severe decrease in GFR 15-29 5 Kidney failure <15 (or dialysis) 5 Acute inflammation: >10.00 6 >100 to <200 pg/mL: likely compensated congestive heart failure (CHF) 200 to 400 pg/mL: likely moderate CHF >400 pg/mL: likely moderate to severe CHF 7 Please note the change in INR reference range effective 17. 8 [id number] SEE RESULT BELOW Name: CHRISTEL ZHAO Suzi : [address]: Agustin Osborn MD Acct: [id number] Unit: [id number] AGE: 71 Location: [facility] Re12/20/16 SEX: F Status: REG REF SPEC: [id number] ALCIDES: 12/20/16-1000 [facility] DR: Agustin Osborn MD REQ: [id number] RECD: 12/20/16097 STATUS: ANGEL SMITH DR: Ronaldo Weathers MD _ [facility] ORDERED: Urine Culture COMMENTS: [id number] QUERIES: Urine Source: Random Procedure Result Reported Site Urine Culture Final 12/25/16- 0855 ML Organism 1 PSEUDOMONAS AERUGINOSA [place] Count 10-25,000 (Moderate) CFU/ML Organism 2 PROTEUS MIRABILIS [place] Count >100,000 (Many) CFU/ML 1. PSEUDOMONAS AERUGINOSA M.I.C. RX --------- ------ Ampicillin >=32 R Cefazolin >=64 R Cefepime 2 S Ceftriaxone >=64 R Ciprofloxacin <=0.25 S Gentamicin 2 S Levofloxacin 1 S Meropenem <=0.25 S Nitrofurantoin 256 R Tetracycline >=16 R Pipercillin/Tazobactam 64 S Trimethoprim/Sulfamethoxazole 160 R Amoxicillin/Clavulanic Acid >=32 R CONTINUED ON NEXT PAGE * ML=Testing performed at Main Lab DEPARTMENT OF PATHOLOGY, [address] [place] [address] Arron Argueta M.D. Director [facility] # [id number] Patient: CHRISTEL ZHAO [id number] (Continued) Specimen: [id number] Collected: 12/20/16-999 Received: 12/20/16 (Continued) Procedure Result Reported Site Urine Culture Final (continued) 12/25/16- 854 2. PROTEUS MIRABILIS M.I.C. RX --------- ------ Ampicillin >=32 R Cefazolin >=64 R Ceftriaxone R Ciprofloxacin <=0.25 S Gentamicin <=1 S Levofloxacin <=0.12 S Meropenem 0.5 S Nitrofurantoin 128 R Tetracycline >=16 R Pipercillin/Tazobactam 32 I Trimethoprim/Sulfamethoxazole <=20 S Aztreonam S Contact the Microbiology Department for any additional antibiotic reporting. * ML - MAIN LAB ([facility]) . END OF REPORT * ML=Testing performed at Main Lab DEPARTMENT OF PATHOLOGY, [facility] [place] [address] Arron Argueta M.D. Director CLIA # [id number] RUN DATE: 08/22/12 [facility] LAB LIVE PAGE 1 RUN TIME: 1015 [facility] [employer] [place], [place] [address] Specimen Inquiry Name: CHRISTEL ZHAO Suzi : [address]: Pradeep German MD Acct: [id number] Unit: [id number] AGE: 66 Location: LAB Re08/20/12 SEX: F Status: REG REF SPEC: [id number] ALCIDES: 08/20/12-[address]: Pradeep German MD REQ: [id number] RECD: 08/20/12-1613 STATUS: COMP [facility] DR: Popeye Rojo MD _ SOURCE: URINE [facility]: ORDERED: Urine Culture Procedure Result Verified Site Urine Culture Final 08/22/12- 1014 ML Organism 1 NORMAL ALEN [place] Count 25-50,000 (Moderate) CFU/ML END OF REPORT * ML=Testing performed at Main Lab DEPARTMENT OF PATHOLOGY, [address] [place] [address] Arron Argueta M.D. Director [facility] Permit #[id number] 11 Because ethnic data is not always readily available, this report includes an eGFR for both -Americans and non- Americans. The National Kidney Disease Education Program (NKDEP) does not endorse the use of the MDRD equation for patients that are not between the ages of 18 and 70, are , have extremes of body size, muscle mass, or nutritional status, or are non- or non-. According to the National Kidney Foundation, irrespective of diagnosis, the stage of the disease is based on the level of kidney function: Stage Description GFR(mL/min/1.73 m(2)) 1 Kidney damage with normal or decreased GFR 90 2 Kidney damage with mild decrease in GFR 60-89 3 Moderate decrease in GFR 30-59 4 Severe decrease in GFR 15-29 5 Kidney failure <15 (or dialysis) Procedures Date CPT Code Description Status Comment 12/11/2016 99471 Moderate Sedation Services; Completed Same Phys Each Additional 15 Mins 12/11/2016 74635 Moderate Sedation Services; Completed Same Phys Intl 15 Mins; PT >=5 Years 12/11/2016 98444 Color Flow Doppler/Interp Completed & Reprt 12/11/2016 00926 Pulse Completed Wave/Continuous-Interp.RPT 12/11/2016 38404 Echocardiography, Completed Transesophageal, Real Time W/Image 2D W/W/O M-M 11/01/2016 00771 EKG Tracing & Completed Interpretation 10/21/2016 02555 ECHO Transthorasic Realtime Completed 2D W Doppler & Color Flow Hosp 10/21/2016 16544 EKG, Interpretation Only Completed 10/20/2016 22560 EKG, Interpretation Only Completed 07/15/2016 38528 EEG Recording Awake & Completed Asleep 06/04/2016 67659 EKG, Interpretation Only Completed 06/02/2016 34567 ECHO Transthorasic Realtime Completed 2D W Doppler & Color Flow Hosp 06/02/2016 50925 EKG, Interpretation Only Completed 05/31/2016 73812 Insert Non-Tunneled Venous Completed Catether 03/14/2016 95797 EKG Tracing & Completed Interpretation 06/19/2015 91744 EKG Tracing & Completed Interpretation 08/26/2014 03392 ECHO Transthoracic, Completed Real-Time 2D With Doppler And Color Flow 08/09/2014 22871 EKG Tracing & Completed Interpretation 01/04/2014 09667 EKG Tracing & Completed Interpretation 04/22/2013 87853 ECHO Transthoracic, Completed Real-Time 2D With Doppler And Color Flow 04/12/2013 96524 EKG Tracing & Completed Interpretation 10/22/2012 48635 Rad Shoulder Comp, Min. 2 Completed Views 09/24/2012 25833 ECHO Transthorasic Realtime Completed 2D W Doppler & Color Flow Hosp 09/24/2012 09122 Pulse Completed Wave/Continuous-Interp.RPT 09/24/2012 22052 Color Flow Doppler/Interp Completed & Reprt 09/04/2012 63920 EKG, Interpretation Only Completed 09/04/2012 33981 Arthroplasty,Total Shoulder Completed Replacement (TSR) 09/04/2012 45016 Arthroplasty,Total Shoulder Completed Replacement (TSR) 06/23/2012 59711 Rad Shoulder Comp, Min. 2 Completed Views 06/23/2012 97431 Inject/Drain Joint/Bursa Completed Major 05/22/2012 24242 ECHO Transthoracic, Completed Real-Time 2D With Doppler And Color Flow 05/18/2012 74174 EKG Tracing & Completed Interpretation 05/04/2007 Diabetic Retinal Eye Exam Completed Document: 05/04/07 - Consult Ophthalmology Encounters Type Date Location Provider CPT E/M Dx Office Visit 03/16/2017 [facility] kenny Jones 43469 N30.01 9:11a Hospitalists [facility] Spears N13.30 I48.91 I10 Office Visit 03/15/2017 9:10a [facility] Quoc Spears, 53547 N30.01 Assoc, [facility] N13.30 I48.91 I10 Office Visit 03/14/2017 1:54p [facility] Indra Weathers, 40210 N12 Infectious Diseases M.Gilles N13.30 R32 N18.9 Office Visit [facility] 57278 N30.01 Assoc, [facility] I48.91 N13.30 I10 Office Visit 03/13/2017 9:09a [facility] Rojelio Hargrove, 85354 N30.01 Assoc, Hospitalists N.P. N13.30 I48.91 I10 Office Visit 02/18/2017 1:15p [facility] Brown, 52458 H90.3 At [place] Bindu Office Visit 01/07/2017 8:30a [facility] Indra Campoverde 96405 Z86.19 Infectious Diseases Bindu Weathers R32 Office Visit 01/03/2017 2:20p [facility] Kpluis fernando Balbuena, 66901 I34.0 M.DGlenroy I10 I25.10 Office Visit 11/26/2016 7:59a [facility] Indra Weathers, 81443 R30.0 Infectious Diseases Bindu N20.0 Z96.0 Office Visit 11/26/2016 9:43a [facility], [place] [address] N39.0 Hospitalists N18.3 Z86.79 Z86.711 Office Visit 11/25/2016 9:42a [facility] [address] N39.0 Hospitalists N18.3 Z86.79 Z86.711 Office Visit 11/24/2016 9:41a [facility], [place] [address] N39.0 Hospitalists N18.3 Z86.79 Z86.711 Office Visit 11/23/2016 9:41a [facility] [address] N39.0 Hospitalists N18.3 Z86.79 Office Visit 11/22/2016 9:40a [facility] Linda Villanueva, 51540 N39.0 Assoc,pc [facility] Hospitalists N18.3 Z86.79 Office Visit 11/01/2016 2:20p [facility] Aby Balbuena, 39153 I34.0 M.DGlenroy R06.02 Office Visit 10/23/2016 1:40p [facility] Abel, 04258 R65.20 Assoc,pc Hospitalists M.DGlenroy A41.9 E87.2 L03.119 Office Visit 10/22/2016 1:40p [facility] Abel, 17406 R65.20 Assoc,pc Hospitalists M.DGlenroy L03.119 E87.2 A41.9 Office Visit 10/22/2016 10:39a [facility] Indra Weathers, 39319 N39.0 Infectious Diseases Bindu M54.5 R06.00 Z96.0 Office Visit 10/21/2016 10:25a [facility] Ronaldo Enriquezochoa, 29889 R82.90 Infectious Diseases MPhil R94.4 I26.99 R06.00 I34.0 Z96.0 Office Visit 10/21/2016 2:16p [facility], Zacarias Ferguson 66132 R65.20 Hospitalists Juventino Walker L03.119 A41.9 E87.2 Office Visit 10/20/2016 2:16p [facility], Lourdes Anderson, DHARMESH 62780 N39.0 Hospitalists I26.99 A41.9 Office Visit 10/19/2016 2:15p [facility] Mc Robles, 32185 I26.99 Assoc, Hospitalists Bindu,FACP N39.0 A41.9 Office Visit 10/03/2016 8:30a [facility] [place]ang, [address] G40.909 [facility] G43.109 Office Visit 09/24/2016 8:30a [facility] Ronaldo Enriquezochoa, 43305 N20.0 Infectious Diseases M.Gilles Z87.440 N10 R32 Office Visit 09/17/2016 3:03p [facility], [place] [address] N12 Hospitalists N13.9 N13.30 I10 Office Visit 09/16/2016 3:02p [facility], [place] [address] N12 Hospitalists N13.9 N13.30 I10 Office Visit 09/16/2016 9:36a [facility] Ronaldo Gilles Andreina, 30089 N13.30 Infectious Diseases M.Gilles R10.9 N17.9 R78.81 D72.829 I87.8 Office Visit 09/15/2016 3:01p [facility], [place] [address] N12 Hospitalists N13.30 I10 H54.8 Office Visit 09/14/2016 3:01p [facility], [place] [address] N12 Hospitalists N13.30 I10 H54.8 Office Visit 09/13/2016 2:59p [facility], Ashley Azar M.D. 83505 N12 Hospitalists N13.30 H54.8 I10 Office Visit 07/31/2016 3:21p [facility], Bill Rivero M.D. 56081 Hospitalists Office Visit 07/31/2016 3:21p [facility], Nydia Bryant, 03783 N12 Hospitalists MPhil E03.9 I26.99 Office Visit 06/15/2016 10:36a [facility], [place] [address] R58 Hospitalists E11.8 A41.9 Office Visit 06/14/2016 10:35a [facility], [place] [address] R58 Hospitalists R78.81 E11.8 Office Visit 06/13/2016 10:35a [facility], [place] [address] R58 Hospitalists R78.81 E11.8 Office Visit 06/12/2016 10:34a [facility], [place] [address] R58 Hospitalists E11.8 A41.9 Office Visit 06/11/2016 10:34a [facility], 80211 R58 Hospitalists M.D. A41.9 E11.8 Office Visit 06/10/2016 10:33a [facility], 99704 R58 Hospitalists M.D. E11.8 Office Visit 06/09/2016 10:32a [facility], 74682 R58 Hospitalists M.D. E11.8 A41.9 Office Visit 06/08/2016 10:13a [facility], 75229 R58 Hospitalists M.D. R78.81 E11.8 Office Visit 06/07/2016 10:12a [facility], [place] [address] N17.9 Hospitalists N13.9 R65.21 R78.81 Office Visit 06/06/2016 10:12a [facility], [place] [address] N13.9 Hospitalists N17.9 R65.21 R78.81 Office Visit 06/05/2016 10:11a [facility],[place] [address] N13.9 Hospitalists N17.9 R65.21 R78.81 Office Visit 06/04/2016 10:11a [facility],pc Zacarias Walker, 18324 N17.9 Hospitalists Juventino R78.81 R65.21 E11.8 Office Visit 06/03/2016 10:10a [facility] Maurizio De La Torre, 84147 N17.9 Hospitalists R78.81 E11.8 R65.21 Office Visit 06/02/2016 10:10a [facility],pc Maurizio De La Torre, 36479 N17.9 Hospitalists R78.81 R65.21 E11.8 Office Visit 06/01/2016 10:09a [facility],pc Maurizio De La Torre, 81479 R65.21 Hospitalists E11.8 R78.81 N17.9 Office Visit 05/31/2016 10:08a [facility],pc Jacy Roman, N.PGlenroy 34501 R65.21 Hospitalists N13.2 A41.9 Office Visit 05/31/2016 10:32a [facility],pc Maurizio De La Torre, 45587 R65.21 Hospitalists N10 E87.2 N17.9 D72.819 Office Visit 05/06/2016 8:08a [facility] Lourdes Anderson, [employer] 44069 R06.02 Assoc,pc Hospitalists J10.1 Z86.711 I10 Office Visit 05/05/2016 [facility] Linda Villanueva, 06235 R06.02 8:07a Assoc,pc [employer] Hospitalists J10.1 Z86.711 I10 Office Visit 04/04/2016 8:30a [facility] Isabel Vang, 45632 G43.109 [facility] G40.909 Office Visit 03/14/2016 4:00p [facility] Aby Balbuena, 36566 E66.01 Bindu I10 I25.10 I34.0 R94.31 Office Visit 07/28/2015 12:20p [facility],pc Kimberly Guajardo, 63493 N12 Hospitalists M.D. E03.9 N17.9 Office Visit 07/26/2015 12:18p [facility],pc Trent Ferrari, 02621 N12 Hospitalists M.D. R56.9 N17.9 E03.9 Office Visit 06/19/2015 11:00a [facility] Qutaybeh SGlenroy Balbuena, 74881 E66.01 M.DGlenroy I10 I25.10 R06.02 I34.0 Office Visit 04/04/2015 8:30a [facility] Isabel Vang, 38780 G43.109 [facility] G40.909 Office Visit 03/09/2015 2:19p [facility], [place] [address] I26.99 Hospitalists E66.01 I82.403 I10 Office Visit 03/08/2015 2:19p [facility], [place] [address] I26.99 Hospitalists E66.01 I82.403 I10 Office Visit 12/01/2014 11:02a [facility], Kerline Soria, 40452 592.0 Hospitalists N.P. 591 244.9 401.9 Office Visit 11/30/2014 11:02a [facility], Bill Rivero M.D. 68949 592.0 Hospitalists 591 244.9 401.9 Office Visit 08/09/2014 11:00a [facility] Qutaybeh SGlenroy Balbuena, 48641 414.01 Bindu 424.0 401.1 272.4 278.00 786.05 Office Visit 04/05/2014 8:45a [facility] Isabel Vang, 04100 346.10 [facility] Office Visit 01/04/2014 4:00p [facility] Hannahtaybluis fernando S. 41268 401.0 Bindu Balbuena 424.0 414.01 272.4 Office Visit 04/12/2013 9:40a [facility] Hannahtaybeh SGlenroy Balbuena 09534 278.00 Bindu 414.01 401.1 424.0 424.2 272.4 786.05 Office Visit 04/06/2013 8:45a [facility] Isabel Vang, 48021 346.90 [facility] 345.40 Office Visit 09/25/2012 8:39a [facility], Nydia Bryant, 33891 415.19 Hospitalists MPhil 278.00 345.10 V43.61 Office Visit 09/24/2012 8:38a [facility], Nydia Braynt, 05081 415.19 Hospitalists MPhil 278.00 345.10 V43.61 Office Visit 09/23/2012 8:38a [facility] Ashley Azar, 29467 415.19 Assoc, Hospitalists MPhil 278.00 345.10 V43.61 Office Visit 08/04/2012 1:00p [facility] German M.D. 37585 715.91 C.M.A. Office Visit 06/23/2012 9:45a [facility] German M.D. 80810 715.91 C.M.A. Office Visit 06/18/2012 10:20a [facility] Hannahtaybluis fernando SGlenroy 26770 414.01 Bindu Balbuena 278.01 272.4 401.9 786.05 Office Visit 05/18/2012 9:00a [facility] Hannahtaybluis fernando SGlenroy Balbuena, 66642 794.31 MPhil 794.31 272.4 272.4 786.50 786.50 401.9 401.9 786.05 782.3 278.01 Office Visit 11/06/2011 8:30a [facility] Isabel Vang, 39264 784.0 [facility] 780.39 389.9 Office Visit 07/05/2009 10:00a [facility] [place] [address] 844.9 C.M.A. 924.11 924.21 Office Visit 06/14/2009 3:45p [facility] [address] 844.9 C.M.A. 845.10 924.11 924.21 Office Visit 06/05/2009 2:45p [facility] [address] 844.9 C.M.A. 924.20 924.11 924.21 Plan of Care Future Appointment(s):06/30/2017 2:40 pm - Ronaldo Weathers M.D. 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
[2017-06-03] MEDS ORDERED: Famotidine IV* 10 MG/ML 2 ML (20 mg) IV ONE (08:38)
[2017-06-03] MEDS ORDERED: Albuterol/Ipratropium NEB.SOL* Albuterol 2.5 MG/Ipratropium 0.5 MG 3 ML INH ONE (08:38)
[2017-06-03] MEDS ORDERED: methylPREDNISolone 125 MG* 2 ML VIAL IV ONE (08:38)
[2017-06-03] MEDS ORDERED: oxyCODONE/Acetamin 5/325 MG* TAB PO ONE (08:54)
[2017-06-03] MEDS: NS 0.9% 1000 ML* 1,000 ML IV SCH (09:27)
--- NOTE | 2017-06-03 09:38 | RAD ---
INDICATION: Short of breath COMPARISON: October 18, 2016 TECHNIQUE: An AP portable view obtained at 0915 hours is submitted. FINDINGS: Bones/Soft Tissues: There are no acute bony findings. There is right shoulder arthroplasty Cardiomediastinal: The cardiomediastinal silhouette is normal. Lungs: There are no infiltrates. Pleura: There are no pleural effusions. Other: None IMPRESSION: NO ACTIVE DISEASE
[2017-06-03 09:41] LABS: ABS Basophils 0.1 10^3/ul (0-0.2); ABS Eosinophils 0.1 10^3/ul (0-0.6); ABS Lymphocytes 0.7 10^3/ul (1.0-4.8); ABS Monocytes 0.5 10^3/ul (0-0.8); ABS Neutrophils 13.9 10^3/ul (1.5-7.7); ABS Nucleated RBC 0 10^3/ul; Eosinophil % 0.8 % (0-6); Hematocrit 39 % (35-47); Hemoglobin 12.6 g/dl (12.0-16.0); Lymphocyte % 4.4 % (25-47); Mean Corpuscular HGB Conc 32 g/dl (31-36); Mean Corpuscular Hemoglobin 28 pg (27-31); Mean Corpuscular Volume 87 fL (80-97); Mean Platelet Volume 8 um3 (7.4-10.4); Nucleated Red Blood Cells % 0; Platelet Count 238 10^3/ul (150-450); Red Blood Count 4.46 10^6/ul (4.0-5.4); Red Cell Distribution Width 18 % (10.5-15); White Blood Count 15.3 10^3/ul (3.5-10.8)
[2017-06-03] MEDS ORDERED: cefTRIAXone(*) 1 GM in NS 0.9% 50 ML* 50 ML IVPB ONE (09:45)
[2017-06-03 09:50] LABS: INR 1.16 (0.77-1.02)
[2017-06-03 10:00] LABS: EGFR Non-African American 35.4 (>60)
[2017-06-03] MEDS ORDERED: NS 0.9% 1000 ML* 1,000 ML IV ONE ×2 (11:49→16:21)
[2017-06-03] MEDS ORDERED: Ondansetron INJ* 2 MG/ML VIAL IV PRN (11:49)
[2017-06-03] MEDS ORDERED: Acetaminophen TAB* 325 MG PO PRN (11:49)
[2017-06-03] MEDS ORDERED: diPHENhydraMINE PO* 25 MG PO PRN (11:49)
[2017-06-03] MEDS ORDERED: NS 0.9% 1000 ML* 1,000 ML IV SCH ×2 (12:00→21:00)
[2017-06-03] MEDS ORDERED: Cefepime 2 GM in Dextrose(*) 2 GM/50 ML BAG IV SCH (12:00)
[2017-06-03] MEDS ORDERED: Warfarin TAB(*) 5 MG PO SCH (12:00)
[2017-06-03] MEDS ORDERED: Warfarin TAB(*) 7.5 MG PO SCH ×2 (12:00)
[2017-06-03] MEDS ORDERED: Dextrose 50% Syringe 50 ML* 25 GM/50 ML SYRINGE IV PUSH PRN (12:01)
--- NOTE | 2017-06-03 13:34 | ED ---
Patricio Maki Jennifer, scribed for Moustapha Prieto MD on 06/03/17 at 0839 . Allergic Reaction/Systemic - HPI Summary HPI Summary: The patient is a 71 year old female who presents with an allergic reaction to Nitrofurantoin beginning at 03:30 this morning. She complains of difficulty breathing, fever, chills, vomiting, and a dry throat. Pt denies throat tightness and difficulty swallowing. Pt denies using an inhaler. She additionally has a wounded right leg and left leg swelling but reports that is normal. - History of Current Complaint Chief Complaint: EDAllergicReaction Time Seen by Provider: 06/03/17 08:26 Hx Obtained From: Patient Hx Last Menstrual Period: N/A Onset/Duration: Sudden Onset, Started hours ago - 5 hours ago, Still Present Timing: Lasting Hours Severity Initially: Moderate Severity Currently: Moderate Pain Intensity: 0 Pain Scale Used: 0-10 Numeric Aggravating Factor(s): Nothing Alleviating Factor(s): Nothing Associated Signs And Symptoms: Positive: Other: - difficulty breahting, fever, chills, vomiting, dry throat. NEGATIVE: throat tightness, difficulty swallowing - Allergies/Home Medications Allergies/Adverse Reactions: Allergies Allergy/AdvReac Type Severity Reaction Status Date / Time latex Allergy Itching Verified 06/03/17 08:29 levofloxacin Allergy Anaphylatic Verified 06/03/17 08:28 Shock levothyroxine Allergy Rash And Verified 06/03/17 08:28 Itching nitrofurantoin Allergy Hives/Diff. Verified 06/03/17 08:29 Breathing/I tching Sulfa (Sulfonamide Allergy Hives Verified 06/03/17 08:29 Antibiotics) Home Medications: Home Medications HYDROcodone/ACETAMIN 5-325 MG* [[place] 5-325 TAB*] 1 tab PO Q6H PRN 06/03/17 [ History Confirmed 06/03/17] Warfarin TAB(*) [Coumadin TAB(*)] 3.75 mg PO .WED 06/03/17 [History Confirmed ] Warfarin TAB(*) [Coumadin TAB(*)] 11.25 mg PO .TUES 06/03/17 [History Confirmed 06/03/17] PMH/Surg Hx/FS Hx/Imm Hx Endocrine/Hematology History: Reports: Hx Diabetes - borderline DM, Hx Thyroid Disease - hypothyroidism Cardiovascular History: Reports: Hx Coronary Artery Disease, Hx Deep Vein Thrombosis, Hx Embolism - multiple PEs, Hx Hypercholesterolemia, Hx Hypertension , Hx Peripheral Vascular Disease, Other Cardiovascular Problems/Disorders - cardiac cath Denies: Hx Congestive Heart Failure Respiratory History: Reports: Hx Pulmonary Embolism - POST OP AFTER SHOULDER REPLACEMENT 2014 Denies: Hx Asthma, Hx Chronic Obstructive Pulmonary Disease (COPD) GI History: Denies: Hx Gall Bladder Disease - gall bladder removed, Hx Ulcer, Other GI Disorders History: Reports: Hx Kidney Infection, Hx Kidney Stones - left, Hx Renal Disease - LT URETERAL STRICTURE. LT STENT, Other Problems/Disorders - Kidney stones July 2011 Denies: Hx Dialysis Musculoskeletal History: Reports: Hx Arthritis, Other Musculoskeletal History - Bilateral knee replacements, R shoulder replacement, fractured R elbow Sensory History: Reports: Hx Cataracts, Hx Contacts or Glasses, Hx Glaucoma, Hx Legally Blind, Hx Vision Problem - Pt is legally blind, Hx Hearing Aid - bilat, Hx Hearing Problem, Other Sensory Impairments Opthamlomology History: Reports: Hx Cataracts, Hx Contacts or Glasses, Hx Glaucoma, Hx Legally Blind, Hx Vision Problem - Pt is legally blind, Other Sensory Impairments Neurological History: Reports: Hx Migraine - Hx of none recently, Hx Seizures - Hx of, none recently, Other Neuro Impairments/Disorders - Hx seizures, none recently Psychiatric History: Reports: Hx Autism Denies: Hx Anxiety, Hx Depression - Cancer History Hx Chemotherapy: No Hx Radiation Therapy: No - Surgical History Surgery Procedure, Year, and Place: Hysterectomy September 2014, 1970 R eye cataract removed, 1989 L eye cataract removed, bilateral knee replacements, R shoulder replacement, 2011 cholecystectomy, plate/screws in R elbow, kidney stone treatment x 3 august 09 3 kidney stones remover and litho. done on others bilaterly. Hx Anesthesia Reactions: No Infectious Disease History: No Infectious Disease History: Denies: Hx Hepatitis, Hx Human Immunodeficiency Virus (HIV), Traveled Outside the [place] in Last 30 Days Comment Only: History Other Infectious Disease - kidney infection - Family History Known Family History: Positive: Cardiac Disease, Hypertension - Social History Alcohol Use: Rare Alcohol Amount: 3-4 PER YEAR Hx Substance Use: No Substance Use Type: Reports: None Hx Tobacco Use: No Smoking Status (MU): Never Smoked Tobacco Have You Smoked in the Last Year: No Review of Systems Positive: Fever, Chills ENT: Negative - Throat tightness, difficulty swallowing, Other - Dry throat Positive: Vomiting All Other Systems Reviewed And Are Negative: Yes Physical Exam - Summary Physical Exam Summary: General: well-appearing, no pain distress Skin: warm, color reflects adequate perfusion, dry Head: normal Eyes: EOMI, ZANDER ENT: normal Neck: supple, nontender Respiratory: Mild respiratory distress, expiratory upper airway wheezing, breath sounds present Cardiovascular: RRR Abdomen: soft, nontender Bowel: present Musculoskeletal: normal, strength/ROM intact. Pedal edema bilaterally, erythema both lower legs. Neurological: normal, sensory/motor intact, A&O x3 Psychological: affect/mood appropriate Triage Information Reviewed: Yes Vital Signs On Initial Exam: Initial Vitals Temp Pulse Resp BP Pulse Ox 99.5 F 105 28 121/96 94 06/03/17 08:08 06/03/17 08:08 06/03/17 08:08 06/03/17 08:08 06/03/17 08:08 Vital Signs Reviewed: Yes Diagnostics - Vital Signs Vital Signs Temp Pulse Resp BP Pulse Ox 06/03/17 08:18 103 24 96 06/03/17 08:08 99.5 F 105 28 121/96 94 - Laboratory Lab Results: Lab Results 06/03/17 06/03/17 06/03/17 Range/Units 09:30 09:30 09:30 WBC (3.5-10.8) 10^3/ul RBC (4.0-5.4) 10^6/ul Hgb (12.0-16.0) g/dl Hct (35-47) % MCV (80-97) fL MCH (27-31) pg MCHC (31-36) g/dl RDW (10.5-15) % Plt Count (150-450) 10^3/ul MPV (7.4-10.4) um3 Neut % (Auto) (38-83) % Lymph % (Auto) (25-47) % [place] % (Auto) (0-7) % Eos % (Auto) (0-6) % Baso % (Auto) (0-2) % Absolute Neuts (auto) (1.5-7.7) 10^3/ul Absolute Lymphs (auto) (1.0-4.8) 10^3/ul Absolute Monos (auto) (0-0.8) 10^3/ul Absolute Eos (auto) (0-0.6) 10^3/ul Absolute Basos (auto) (0-0.2) 10^3/ul Absolute Nucleated RBC 10^3/ul Nucleated RBC % INR (Anticoag Therapy) 1.16 H (0.77-1.02) APTT 24.6 L (26.0-36.3) seconds D-Dimer, Quantitative 203 (Less Than 230) ng/mL Sodium 140 (133-145) mmol/L Potassium 4.3 (3.5-5.0) mmol/L Chloride 105 (101-111) mmol/L Carbon Dioxide 27 (22-32) mmol/L Anion Gap 8 (2-11) mmol/L BUN 36 H (6-24) mg/dL Creatinine 1.46 H (0.51-0.95) mg/dL Est GFR ( Amer) 45.6 (>60) Est GFR (Non-Af Amer) 35.4 (>60) BUN/Creatinine Ratio 24.7 H (8-20) Glucose 190 H (70-100) mg/dL Lactic Acid (0.5-2.0) mmol/L Calcium 9.7 (8.6-10.3) mg/dL Magnesium 1.9 (1.9-2.7) mg/dL Total Bilirubin 0.40 (0.2-1.0) mg/dL AST 16 (13-39) U/L ALT 25 (7-52) U/L Alkaline Phosphatase 66 (34-104) U/L Total Creatine Kinase 37 (10-223) U/L CK-MB (CK-2) 1.5 (0.6-6.3) ng/mL Troponin I 0.00 (<0.04) ng/mL C-Reactive Protein 13.20 H (< 5.00) mg/L B-Natriuretic Peptide 82 ( - 100) pg/mL Total Protein 7.7 (6.4-8.9) g/dL Albumin 3.9 (3.2-5.2) g/dL Globulin 3.8 (2-4) g/dL Albumin/Globulin Ratio 1.0 (1-3) Lipase 25 (11.0-82.0) U/L TSH 2.34 (0.34-5.60) mcIU/mL Influenza A (Rapid) (Negative) Influenza B (Rapid) (Negative) 06/03/17 06/03/17 06/03/17 Range/Units 09:30 09:30 11:12 WBC 15.3 H (3.5-10.8) 10^3/ul RBC 4.46 (4.0-5.4) 10^6/ul Hgb 12.6 (12.0-16.0) g/dl Hct 39 (35-47) % MCV 87 (80-97) fL MCH 28 (27-31) pg MCHC 32 (31-36) g/dl RDW 18 H (10.5-15) % Plt Count 238 (150-450) 10^3/ul MPV 8 (7.4-10.4) um3 Neut % (Auto) 90.9 H (38-83) % Lymph % (Auto) 4.4 L (25-47) % [place] % (Auto) 3.4 (0-7) % Eos % (Auto) 0.8 (0-6) % Baso % (Auto) 0.5 (0-2) % Absolute Neuts (auto) 13.9 H (1.5-7.7) 10^3/ul Absolute Lymphs (auto) 0.7 L (1.0-4.8) 10^3/ul Absolute Monos (auto) 0.5 (0-0.8) 10^3/ul Absolute Eos (auto) 0.1 (0-0.6) 10^3/ul Absolute Basos (auto) 0.1 (0-0.2) 10^3/ul Absolute Nucleated RBC 0 10^3/ul Nucleated RBC % 0 INR (Anticoag Therapy) (0.77-1.02) APTT (26.0-36.3) seconds D-Dimer, Quantitative (Less Than 230) ng/mL Sodium (133-145) mmol/L Potassium (3.5-5.0) mmol/L Chloride (101-111) mmol/L Carbon Dioxide (22-32) mmol/L Anion Gap (2-11) mmol/L BUN (6-24) mg/dL Creatinine (0.51-0.95) mg/dL Est GFR ( Amer) (>60) Est GFR (Non-Af Amer) (>60) BUN/Creatinine Ratio (8-20) Glucose (70-100) mg/dL Lactic Acid 2.3 H* (0.5-2.0) mmol/L Calcium (8.6-10.3) mg/dL Magnesium (1.9-2.7) mg/dL Total Bilirubin (0.2-1.0) mg/dL AST (13-39) U/L ALT (7-52) U/L Alkaline Phosphatase (34-104) U/L Total Creatine Kinase (10-223) U/L CK-MB (CK-2) (0.6-6.3) ng/mL Troponin I (<0.04) ng/mL C-Reactive Protein (< 5.00) mg/L B-Natriuretic Peptide ( - 100) pg/mL Total Protein (6.4-8.9) g/dL Albumin (3.2-5.2) g/dL Globulin (2-4) g/dL Albumin/Globulin Ratio (1-3) Lipase (11.0-82.0) U/L TSH (0.34-5.60) mcIU/mL Influenza A (Rapid) Negative (Negative) Influenza B (Rapid) Negative (Negative) Result Diagrams: 06/03/17 09:30 06/03/17 09:30 Lab Statement: Any lab studies that have been ordered have been reviewed, and results considered in the medical decision making process. - Radiology CXR Xray Interpretation: No Acute Changes - NO ACTIVE DISEASE. Dr. Prieto has reviewed this report. Radiology Interpretation Completed By: Radiologist - EKG 08:38 Cardiac Rate: Tachycardia EKG Rhythm: Sinus Tachycardia - [address] Segment: Normal Ectopy: None Allergic Reaction Course/Dx - Course Course Of Treatment: ADMIT HOSPITALIST. CRITICAL CARE TIME LESS THAN 30 MINUTES Assessment/Plan: Medications reviewed. Allergies noted. BP noted and advised to follow-up with PCP. - Diagnoses Provider Diagnoses: HTN (hypertension), Dyspnea, Leukocytosis - Provider Notifications Discussed Care Of Patient With: Ashley Azar Time Discussed With Above Provider: 11:06 Instructed by Provider To: Admit As Inpatient Discharge - Discharge Plan Condition: Stable Disposition: ADMITTED TO [facility] documentation as recorded by the Patricio whyte Jennifer accurately reflects the service I personally performed and the decisions made by me, Moustapha Prieto MD.
[2017-06-03] MEDS: Heparin VIAL(*) 5000 UNITS/ML VIAL (FIVE THOUSAND) SUBCUT SCH ×2 (14:12→21:52)
[2017-06-03] MEDS: HYDROcodone/ACETAMIN 5-325 MG* 1 TAB PO PRN ×2 (14:30→21:51)
[2017-06-03] MEDS: Cefepime(*) 2 GM in NS 0.9% 50 ML* 50 ML IVPB SCH (15:10)
[2017-06-03 16:48] LABS: Urine Appearance Cloudy; Urine Blood 3+ (Negative); Urine Color Yellow; Urine Ketones Negative (Negative); Urine Protein 1+(30 mg/dL) (Negative); Urine Specific Gravity 1.019 (1.010-1.030); Urine Urobilinogen Negative (Negative)
[2017-06-03] MEDS ORDERED: Warfarin TAB(*) 10 MG PO ONE (17:00)
[2017-06-03] MEDS: Insulin LISPRO* 1 UNITS UNIT SUBCUT SCH (17:27)
--- NOTE | 2017-06-03 19:39 | HP ---
CC: Dr. Rojo; Dr. Weathers * HISTORY AND PHYSICAL: DATE OF ADMISSION: 06/03/17 PRIMARY CARE PROVIDER: Dr. Rojo. ATTENDING PHYSICIAN WHILE IN THE HOSPITAL: Ashley Azar MD * (report dictated by Dewey Hargrove NP) CHIEF COMPLAINT: 1. Itching. 2. Wheezing. HISTORY OF PRESENT ILLNESS: Mrs. Zhao is a 71-year-old female patient with a complex medical history, coming into our ER today stating that she recently was diagnosed in the outpatient setting with UTI, was started on nitrofurantoin. She started taking the medication last night. She noticed that she started having itching behind ears at first and then on her chest. She said that she started wheezing this morning by 8 o'clock, she was not feeling any better, so she came into the ED. Also note she again does have history of pyelonephritis, hydronephrosis, requiring stents with a history of kidney stones, hyperlipidemia, CKD, hypothyroid, she is legally blind, she has a history of an NSTEMI, CAD, history of PE, history of seizures. She also carries a history of hypertension, hyperlipidemia, borderline diabetes. She has had a PE in the past and also a history of retroperitoneal bleed. She also states that recently she is being treated for at the wound clinic she states over the [place] and has been on several different antibiotics in the form of Augmentin and Keflex for a lower extremity wound. She states that she has not had any fevers or chills to her knowledge recently. She states with the exception today she vomited once. She was kind of aching all over after taking the nitrofurantoin. She said that the chest felt tight and she was having a hard time getting air. Again, she said she noticed a rash, but that was not seen here. She states the right lower extremity wound has not been draining as much anymore. She did see Dr. Weathers for this yesterday and was felt that the wound look stable. Because of this allergic reaction secondary to probably nitrofurantoin, she came into the hospital today, was evaluated. She was found to have a white count and was noted that when she was tachy and in interviewing her, it was noted that she felt warm. I checked her and appeared that she had a fever of 101.3. So at this point, we were asked to evaluate for admission. PAST MEDICAL HISTORY: Significant for: 1. Pyelonephritis. 2. Hydronephrosis. 3. Hyperlipidemia. 4. Nephrolithiasis. 5. CKD. 6. Hypothyroidism. 7. She is legally blind. 8. NSTEMI. 9. History of PE. 10. CAD. 11. Seizure. 12. Depression. 13. AFib. 14. Borderline diabetes. 15. Hypertension. 16. She does carry a history of retroperitoneal bleed. PAST SURGICAL HISTORY: 1. She has had cataract extraction. 2. She has had cholecystectomy. 3. She has had hysterectomy. 4. She has had bilateral total knee replacement. 5. She has right elbow ORIF. 6. She has a right total shoulder arthroplasty. 7. There is a history of heart catheterization. 8. She has had a cystoscopy with ureteral stenting in the past. MEDICATIONS: Her home meds according to the list she provided includes: 1. Hydrocodone 1 tablet every 6 hours as needed. 2. Oxycodone 5 mg every 4 hours as needed. 3. Macrodantin 100 mg p.o. b.i.d., again this is now an allergy for the patient and will be removed. 4. She also is on Lipitor 20 mg a day. 5. Atenolol 50 mg a day. 6. Aspirin 81 mg a day. 7. Warfarin. Please note, her INR was low and she used to take warfarin 11.25 mg a day, she used to take warfarin 3.75 mg tomorrow and 7.5 mg on . 8. Potassium 15 mEq twice a day. 9. Multivitamin 1 tablet daily. 10. Synthroid, but again she takes Synthroid that should be brand name 50 mcg p.o. daily. 11. Alphagan 1 drop both eyes b.i.d. ALLERGIES TO MEDICATIONS: Include LATEX, LEVAQUIN, LEVOTHYROXINE. She can take Synthroid. She is now newly allergic to NITROFURANTOIN. She is allergic to SULFA drugs as well. FAMILY HISTORY: Mother had a history of glaucoma, dementia, and macular degeneration. Father had a history of diabetes and leukemia. SOCIAL HISTORY: She does not smoke. Rarely drinks alcohol. Surrogate decision maker is her , Otto. REVIEW OF SYSTEMS: There is again documented fever here. She did admit to having chills. She denies having any double vision. There was no ear discharge. She denied any rhinorrhea or sore throat. There has been no coughing, no shortness of breath, no orthopnea. She did admit to chest tightness and wheezing today. She did have one episode of nausea with vomiting. No abdominal pain. She did have some urgency, but no frequency, no dysuria. She does have skin ulcerations to the right lower extremity, which she sees chronic wound care for and no other skin ulcerations were noted. Review of 14 systems completed, all others negative. PHYSICAL EXAMINATION GENERAL: At this time, Mrs. Zhao is a 71-year-old female patient, she is chronically ill appearing, she is sitting in the ED stretcher. She does not appear to be in any acute distress. VITAL SIGNS: Blood pressure 121/96; pulse 105; respirations initially when she came in are 28, they are now 20, her O2 saturation was 94% on room air, and temperature was 99.5 and it is now 101.3. HEENT: Head: Atraumatic, normocephalic. Eyes: EOMs are intact. Sclerae anicteric and not pale. Throat: Oral mucosa appears to be dry. No oropharyngeal erythema. NECK: Supple. LUNGS: Clear to auscultation bilaterally. No wheezes, rales, or rhonchi at this point. HEART: Sounds S1 and S2. She is mildly tachycardic. ABDOMEN: Soft, flat, nontender. Bowel sounds present. EXTREMITIES: Pulses were 2+ throughout. She does have chronic what appearing erythema to lower extremities and chronic edema. NEUROLOGIC: She is awake, alert, oriented x3. No gross focal deficits. SKIN: Intact with exception she has a wound noted to the right lower extremity in the pretibial area that measures approximately 4 x 4 cm. Otherwise, skin is intact. She does have erythema noted to the left leg and there was streaking starting going to go up into the left groin. DIAGNOSTIC STUDIES/LAB DATA: Labs today WBC of 15.3, RBC of 4.46, hemoglobin 12.6, hematocrit 39, and platelet count of 238. INR 1.16, PTT of 24.6. D- dimer 203. Sodium of 140, potassium 4.3, chloride 105, bicarb 27, BUN 36, creatinine 1.46, glucose 190, lactic 2.3, calcium 9.7, mag 1.9. Total bilirubin 0.4, AST 16, ALT 25, alk phos 66. CK 37, CK-MB 1.5. Troponin 0. CRP of 13. Albumin of 3.9, TSH of 2.34. Lipase is normal. She had a chest x-ray obtained today showed no active disease. There was an EKG obtained today, appears to be a sinus tachycardia, but EKG was calling it AFib, but she has P-waves with her QRS complexes that I can see. She has no ST elevations or T-wave inversions noted. I reviewed the previous EKG, it is similar. She does have again history of AFib and with prior EKGs when looking back. Old medical records reviewed. ASSESSMENT AND PLAN: Mrs. Zhao is a 71-year-old female patient coming into the ED today. She has multiple medical problems and chief complaint today was wheezing and rash. On evaluation, found to have signs of sepsis and allergic reaction. She will be admitted under inpatient status for: 1. Allergic reaction. At this point, I am not going to put her on steroids because she had the fever of 101.3 down her. I will continue p.r.n. Benadryl and Pepcid. If she starts wheezing again, then I will be happy to her on a burst of steroids, but at this point, I would like to monitor her. I suspect it is related to the nitrofurantoin, though this has been stopped. 2. Sepsis. The source is unclear. I am thinking it is probably cellulitis actually to the left lower extremity. I did touch base with Dr. Weathers. We are going to place the patient on cefepime and get blood cultures. She already got a bolus here in the ED. I am going to give her another liter of fluids and a normal saline at 100 an hour. Blood cultures repeat the lactate and continue with antibiotics and we will continue to follow. I will also repeat her urinalysis as well. She did grew out previously Proteus which was susceptible to cefepime in the past. So, I think the cefepime is an appropriate choice at this point and again Dr. Weathers was in agreement. Flu was negative. 3. History of pyelonephritis and hydronephrosis. She is not having any flank pain. We will monitor for this and she said she has problem with this. 4. Hyperlipidemia. Continue statin therapy. 5. Chronic kidney disease. Creatinine at baseline. We will follow. 6. Hypothyroidism. Continue Synthroid. She needs to take brand Synthroid. She cannot take generic. 7. History of legally blind. Continue supportive care. 8. History of coronary artery disease and history of non-ST elevation myocardial infarction. She is on aspirin, beta-lizeth, statin continue. 9. History of pulmonary embolism with a history of retroperitoneal bleed. Her INR is 1.16. We have increased her Coumadin in the outpatient setting that increased her to take 11.25 mg today, 3.75 mg tomorrow, and then 7.5 mg on . I am going to continue this dosing schedule following her INRs. We may need to back down the Coumadin to 5. We will adjust the dose as needed, but for the time being, I am going to put her on subtherapeutic heparin. I do not think she needs therapeutic heparin or therapeutic Lovenox because of the history of retroperitoneal bleed, so I would like to again give her prophylactic dosing for now and bridge her with Coumadin. 10. Seizure disorder. I have ordered seizure precautions. We will continue her current medical regimen. 11. Depression. Continue with supportive care. 12. History of atrial fibrillation. Again, we will continue her beta-lizeth. We are bridging her with subcu heparin. I am not giving her full dose heparin at this point because of the history of retroperitoneal bleed. 13. Hypertension. Continue meds as prescribed. 14. DVT prophylaxis. Again, she is on subcu heparin. In addition to this, we are increasing her warfarin dose and following the INR. 15. Code status. Full code. 16. Fluids, electrolytes, and nutrition. She can have a heart healthy diet. 17. Borderline diabetes. In the setting of recent steroids given here in the ED, I will go ahead and put her on a lispro sliding scale. We will monitor her. TIME SPENT: On admission 60 minutes; greater than half the time spent face-to- face with the patient obtaining my history and physical, other half of the time spent going over the plan of care with the patient and implementing the plan of care. I did discuss the plan of care with my attending, Dr. Azar; in agreement. DEWEY HARGROVE NP [id number]/[facility] #: [id number] ANTHONY
[2017-06-03] MEDS: Albuterol 2.5 MG/3 ML NEB.SOL* (0.083%) INH PRN (19:51)
[2017-06-03] MEDS: oxyCODONE TAB* 5 MG TAB PO PRN (20:07)
[2017-06-03] MEDS: Atorvastatin* 20 MG TAB PO SCH (20:07)
[2017-06-03] MEDS: PTO: Brimonidine P 0.1%(NF) 1 DROP BTL BOTH EYES SCH (20:12)
--- NOTE | 2017-06-03 21:45 | CONS ---
CONSULTATION REPORT: DATE OF CONSULT: 06/03/17 REQUESTING PROVIDER: Dewey Hargrove NP CONSULTING SERVICE: Infectious Disease. REASON FOR CONSULTATION: Fever. IMPRESSION: 1. Hives and cough, dyspnea overnight after taking Macrodantin, sounds like an anaphylactic reaction, no shock. 2. Fever and malaise. Her dyspnea is resolved as are the hives. It could be remainder of an allergic reaction versus a urinary tract infection versus she does have a left leg cellulitis. 3. Morbid obesity. 4. Recurrent urinary tract infections and nephrolithiasis with left ureteral stent. 5. Hypothyroidism. 6. Chronic kidney disease. 7. Coronary artery disease. 8. Wet-hfrcwue-zrgmrablp diabetes. RECOMMENDATIONS: Continue cefepime 2 g every 12 hours. We will await the blood and urine cultures and follow her left leg. HISTORY OF PRESENT ILLNESS: This is a 71-year-old woman with obesity, recurrent urinary tract infections, and a chronic right lower extremity wound, admitted with fever. Last night, she was started on Macrodantin for urinary tract infection. She at 3 in the morning developed hives, malaise, dyspnea, and cough. She came to the emergency room this morning. Her white blood cell count is 15,000. She is febrile to 38.4. Her hives had resolved and her breathing much improved. She is found to have a lactic acidosis as well. She is started on cefepime by Dewey Hargrove NP. She is tolerating that well. At this point, she still feels pretty tired and worn out. A little bit of pressure with urination. No dysuria or flank pain. She has noticed a little bit of swelling, pain in the left leg, which has been found to be more red. She cannot see it given her underlying blindness. PAST MEDICAL HISTORY: 1. Obesity. 2. Legally blind. 3. Recurrent urinary tract infection. 4. Nephrolithiasis. 5. Left ureteral stent. 6. Hypothyroidism. 7. History of pyelonephritis. 8. Chronic kidney disease. 9. Coronary artery disease and history of non-ST elevation SD. 10. Pulmonary embolus. 11. Seizure. 12. Depression. 13. History of atrial fibrillation. 14. Eoz-lvituun-mvczjrsar diabetes. 15. Hypertension. 16. Hyperlipidemia. 17. History of retroperitoneal bleed. 18. Status post cataract extraction. 19. Status post cholecystectomy. 20. Status post hysterectomy. 21. Status post bilateral total knee arthroplasty. 22. Status post right elbow open reduction and internal fixation. 23. Status post right total shoulder arthroplasty. MEDICATIONS: 1. Cefepime 2 g every 12 hours. 2. Tylenol. 3. Albuterol inhaler. 4. Aspirin. 5. Atenolol. 6. Lipitor. 7. Famotidine. 8. Heparin subcutaneous injection. 9. Levothyroxine. 10. Warfarin. ALLERGIES: LEVAQUIN, LATEX, SULFA, LEVOTHYROXINE, MACRODANTIN. SOCIAL HISTORY: She lives with her in [place]. She has no sick contacts. FAMILY HISTORY: Mother alive at 93 with dementia. Father with diabetes and leukemia. REVIEW OF SYSTEMS: A 14-point review of systems was negative except as noted above. PHYSICAL EXAM: Vital Signs: Temperature is 38, heart rate 110, respiratory rate 18, blood pressure 134/64, oxygen saturation 93% on room air. In general, she is awake, not in distress. Neurologic: She is oriented x3. Follows all commands. HEENT: There is no conjunctival hemorrhage. Oropharynx without lesions. Neck: Neck is supple without nuchal rigidity. Lymph Nodes: There is no cervical, supraclavicular, inguinal, axillary, or epitrochlear lymphadenopathy. Heart: Regular rate and rhythm without murmurs, rubs, or gallops. Lungs are clear to auscultation bilaterally. Abdomen: Soft, nontender, nondistended. There are bowel sounds present. Skin: There is no rash or splinter hemorrhages. Musculoskeletal: There is no spine tenderness to palpation. There is no joint synovitis. There is left lower extremity below- the-knee edema with some diffuse band-like erythema without crepitus or fluctuance. There is mild warmth. LABORATORY DATA: White blood cell count 15.3, hemoglobin 12.6, platelets 238. Creatinine 1.4. CRP 13. Please see impressions, recommendations as outlined above, which are discussed with Dewey Hargrove NP Thank you for asking me to see Ms. Zhao in consultation. [id number]/[facility] #: [id number] MTDD
[2017-06-04] MEDS: Cefepime(*) 2 GM in NS 0.9% 50 ML* 50 ML IVPB SCH ×2 (01:08→12:25)
[2017-06-04] MEDS: NS 0.9% 1000 ML* 1,000 ML IV SCH ×4 (01:08→21:28)
[2017-06-04] MEDS: Heparin VIAL(*) 5000 UNITS/ML VIAL (FIVE THOUSAND) SUBCUT SCH ×3 (05:07→21:29)
[2017-06-04] MEDS: Levothyroxine TAB* 50 MCG TAB PO SCH (05:07)
[2017-06-04 05:48] LABS: ABS Basophils 0 10^3/ul (0-0.2); ABS Eosinophils 0 10^3/ul (0-0.6); ABS Lymphocytes 0.8 10^3/ul (1.0-4.8); ABS Monocytes 0.4 10^3/ul (0-0.8); ABS Neutrophils 11.2 10^3/ul (1.5-7.7); ABS Nucleated RBC 0 10^3/ul; Eosinophil % 0 % (0-6); Hematocrit 32 % (35-47); Hemoglobin 10.2 g/dl (12.0-16.0); Mean Corpuscular HGB Conc 32 g/dl (31-36); Mean Corpuscular Hemoglobin 28 pg (27-31); Mean Corpuscular Volume 87 fL (80-97); Mean Platelet Volume 8 um3 (7.4-10.4); Nucleated Red Blood Cells % 0; Platelet Count 193 10^3/ul (150-450); Red Blood Count 3.68 10^6/ul (4.0-5.4); Red Cell Distribution Width 18 % (10.5-15); White Blood Count 12.4 10^3/ul (3.5-10.8)
[2017-06-04 05:53] LABS: INR 1.48 (0.77-1.02)
[2017-06-04 06:17] LABS: EGFR Non-African American 41.6 (>60)
[2017-06-04] MEDS: Albuterol 2.5 MG/3 ML NEB.SOL* (0.083%) INH PRN (07:48)
[2017-06-04] MEDS: Aspirin EC Low Dose* 81 MG TAB.EC PO SCH (08:36)
[2017-06-04] MEDS: Insulin LISPRO* 1 UNITS UNIT SUBCUT SCH ×3 (08:36→17:47)
[2017-06-04] MEDS: Atenolol TAB* 50 MG PO SCH (08:36)
[2017-06-04] MEDS: Famotidine TAB* 20 MG PO SCH (08:37)
[2017-06-04] MEDS: PTO: Brimonidine P 0.1%(NF) 1 DROP BTL BOTH EYES SCH ×2 (08:37→21:30)
[2017-06-04] MEDS ORDERED: Atenolol TAB* 50 MG PO SCH (09:00)
[2017-06-04] MEDS: HYDROcodone/ACETAMIN 5-325 MG* 1 TAB PO PRN (09:05)
[2017-06-04] MEDS: oxyCODONE TAB* 5 MG TAB PO PRN (12:24)
--- NOTE | 2017-06-04 16:28 | PN ---
Subjective Date of Service: 06/04/17 Interval History: Patient seen and examined at bedside. Denies fever, chills, shortness of breath , chest discomfort, N/V/D. Pt states that she feels like the redness to her left LE has increased up her leg recently, but this is hard for her to see with her blindness. Tele: Sinus rhythm, rate 90's Family History: Unchanged from Admission Social History: Unchanged from Admission Past Medical History: Unchanged from Admission Objective Active Medications: Acetaminophen (Tylenol Tab*) 650 mg PO Q4H PRN Reason: FEVER/PAIN Hydrocodone Bitart/Acetaminophen ([place] 5-325 Tab*) 1 tab PO Q6H PRN Reason: PAIN Albuterol (Ventolin 2.5 Mg/3 Ml Neb.Ale*) 2.5 mg INH Q2H PRN Reason: SOB/ WHEEZING Aspirin (Aspirin Ec Low Dose*) 81 mg PO DAILY JN Atenolol (Tenormin Tab*) 50 mg PO QAM JN Atorvastatin Calcium (Lipitor*) 20 mg PO BEDTIME JN Brimonidine Tartrate (Alphagan P 0.1% (Nf)) 1 drop BOTH EYES BID JN Dextrose (D50w Syringe 50 Ml*) 12.5 gm IV PUSH .FOR FS < 60 - SS PRN Reason: FS < 60 Diphenhydramine HCl (Benadryl Po*) 25 mg PO Q6H PRN Reason: ITCHING Famotidine (Pepcid Tab*) 20 mg PO DAILY JN Heparin Sodium (Porcine) (Heparin Vial(*)) 5,000 units SUBCUT Q8HR JN Sodium Chloride (Ns 0.9% 1000 Ml*) 1,000 mls @ 150 mls/hr IV PER RATE JN Cefepime HCl 2 gm/ Sodium (Chloride) 50 mls @ 100 mls/hr IVPB Q12H JN Insulin Human Lispro (Humalog*) 0 units SUBCUT AC JN Levothyroxine Sodium (Synthroid Tab*) 50 mcg PO 0600 JN Ondansetron HCl (Zofran Inj*) 4 mg IV Q6H PRN Reason: NAUSEA Oxycodone HCl (Roxycodone Tab*) 5 mg PO Q4H PRN Reason: PAIN Pharmacy Profile Note (Coumadin Per Pharmacy*) 1 note FOLLOW UP .PER PHARMACY PROTOC JN Warfarin Sodium (Coumadin Tab(*)) 7.5 mg PO ONCE@1700 ONE Stop: 06/04/17 17:01 Vital Signs - 8 hr 06/04/17 06/04/17 06/04/17 09:05 11:01 11:15 Temperature 97.5 F Pulse Rate 83 Respiratory 20 18 20 Rate Blood Pressure 139/63 (mmHg) O2 Sat by Pulse 99 Oximetry 06/04/17 06/04/17 12:24 15:20 Temperature 97.3 F Pulse Rate 77 Respiratory 20 16 Rate Blood Pressure 140/65 (mmHg) O2 Sat by Pulse 97 Oximetry Oxygen Devices in Use Now: None Appearance: NAD, sitting up in a chair. Ears/Nose/Mouth/Throat: Mucous Membranes Moist Respiratory: Symmetrical Chest Expansion and Respiratory Effort, Clear to Auscultation Cardiovascular: NL Sounds; No Murmurs; No JVD, RRR Abdominal: NL Sounds; No Tenderness; No Distention Extremities: - - Bilateral LE edema Skin: - - Erythema to left LE from knee down Neurological: Alert and Oriented x 3, NL Muscle Strength and Tone Lines/Tubes/Other Access: Clean, Dry and Intact Peripheral IV - site benign Nutrition: Taking PO's Result Diagrams: 06/04/17 05:37 06/04/17 05:37 Additional Lab and Data: Microbiology and Other Data: Microbiology 06/03/17 14:10 Urine Culture - Preliminary Urine Proteus Mirabilis Assess/Plan/Problems-Billing Assessment: Ms. Zhao is a 71 yo female with PMH significant for HLD, CKD, hypothyroidism , legally bind, CAD, seizures, depression, afib, DM, and HTN who presented to the emergency room with complaints of wheezing and rash and was found to have signs of sepsis and an allergic reaction. - Patient Problems (1) Allergic reaction Code(s): T78.40XA - ALLERGY, UNSPECIFIED, INITIAL ENCOUNTER SNOMED Code(s): 884955607 Comment: - Suspect secondary to nitrofurantoin - Continue benadryl and pepcid PRN (2) Sepsis Comment: - Sepsis at admission; unlear etiology, suspect secondary to possible cellulitis. - Leukocytosis improving, now afebrile. - Continue cefepime, ID consult pending. (3) Cellulitis Code(s): L03.90 - CELLULITIS, UNSPECIFIED SNOMED Code(s): 535329741 Comment: - Left LE - With associated sepsis on admission - ID consult, pending - Continue cefepime (4) Hydronephrosis Code(s): N13.30 - UNSPECIFIED HYDRONEPHROSIS SNOMED Code(s): 23421657 Comment: - With associated pyelonephritis - Now s/p retrograde pyelogram which confirmed 2 strictures of the L ureter which were partially dilated with a stent placed - Blood cultures pending, urine culture growing 50-75K Proteus Mirabilis - ID consult, pending - Continue Cefepime (5) HLD (hyperlipidemia) Code(s): E78.5 - HYPERLIPIDEMIA, UNSPECIFIED SNOMED Code(s): 27651393 Comment: - Continue statin (6) CKD (chronic kidney disease) Code(s): N18.9 - CHRONIC KIDNEY DISEASE, UNSPECIFIED SNOMED Code(s): 503182534 Comment: - Stage 3 - At baseline (7) Hypothyroidism Code(s): E03.9 - HYPOTHYROIDISM, UNSPECIFIED SNOMED Code(s): 33013836 Comment: - TSH 2.34 - Continue synthroid (allergy to levothyroxine noted, able to take Synthroid) (8) Legally blind Code(s): H54.8 - LEGAL BLINDNESS, DEFINED IN [place] SNOMED Code(s): 01048692 Comment: - Supportive care (9) History of pulmonary embolus (PE) Code(s): Z86.711 - PERSONAL HISTORY OF PULMONARY EMBOLISM SNOMED Code(s): 628288745 Comment: - Chronically anticoagulated with Coumadin - Subtherapeutic INR - Continue Heparin SQ and Coumadin (10) CAD (coronary artery disease) Code(s): I25.10 - ATHSCL HEART DISEASE OF [place] CORONARY ARTERY W/O ANG PCTRS SNOMED Code(s): 98798153 Comment: - Asymptomatic - HX NSTEMI - Continue betablocker, ASA and statin (11) A-fib Code(s): I48.91 - UNSPECIFIED ATRIAL FIBRILLATION SNOMED Code(s): 63366442 Comment: - NSR at this time - Continue coumadin and SQ Heparin as INR is subtherapeutic (12) Seizure disorder Code(s): G40.909 - EPILEPSY, UNSP, NOT INTRACTABLE, WITHOUT STATUS EPILEPTICUS SNOMED Code(s): 794243033 Comment: - Very distant hx of seizures, not currently an issue. - Reports being taken off Topamax due to "contribution to renal stones" (13) Depression Code(s): F32.9 - MAJOR DEPRESSIVE DISORDER, SINGLE EPISODE, UNSPECIFIED SNOMED Code(s): 41499546 Comment: - Stable - Continue supportive care (14) Systolic heart failure Code(s): I50.20 - UNSPECIFIED SYSTOLIC (CONGESTIVE) HEART FAILURE SNOMED Code( s): 771537985 Comment: - Chronic compensated (15) Diabetes Code(s): E11.9 - TYPE 2 DIABETES MELLITUS WITHOUT COMPLICATIONS SNOMED Code(s) : 35901409 Comment: - Diet controlled at home - Monitor mealtime glucose and cover hyperglycemia with SS Humalog during hospitalization (16) HTN (hypertension) Code(s): I10 - ESSENTIAL (PRIMARY) HYPERTENSION SNOMED Code(s): 44389654 Comment: - Mostly normotensive, SBP 110-150's - Continue atenolol (17) DVT prophylaxis Code(s): GJZ5916 - SNOMED Code(s): 183298005 Comment: - SQ heparin and Coumadin (18) Full code status Code(s): Z78.9 - OTHER SPECIFIED HEALTH STATUS SNOMED Code(s): 828558627 Status and Disposition: Inpatient. Discharge to home when medically stable.
[2017-06-04] MEDS ORDERED: Warfarin TAB(*) 7.5 MG PO ONE (17:00)
[2017-06-04] MEDS: Atorvastatin* 20 MG TAB PO SCH (21:32)
[2017-06-05] MEDS: Cefepime(*) 2 GM in NS 0.9% 50 ML* 50 ML IVPB SCH ×2 (00:31→12:22)
[2017-06-05] MEDS: Heparin VIAL(*) 5000 UNITS/ML VIAL (FIVE THOUSAND) SUBCUT SCH ×2 (04:51→14:29)
[2017-06-05] MEDS: Levothyroxine TAB* 50 MCG TAB PO SCH (04:51)
[2017-06-05] MEDS: oxyCODONE TAB* 5 MG TAB PO PRN (04:54)
[2017-06-05] MEDS: NS 0.9% 1000 ML* 1,000 ML IV SCH ×2 (04:56→12:20)
[2017-06-05 07:31] LABS: INR 1.62 (0.77-1.02)
[2017-06-05] MEDS: Insulin LISPRO* 1 UNITS UNIT SUBCUT SCH ×2 (07:41→12:20)
[2017-06-05] MEDS: Atenolol TAB* 50 MG PO SCH (08:03)
[2017-06-05] MEDS: Famotidine TAB* 20 MG PO SCH (08:04)
[2017-06-05] MEDS: Aspirin EC Low Dose* 81 MG TAB.EC PO SCH (08:04)
[2017-06-05] MEDS: PTO: Brimonidine P 0.1%(NF) 1 DROP BTL BOTH EYES SCH (08:04)
[2017-06-05 12:17] VITALS: BP 146/63
--- NOTE | 2017-06-05 14:33 | PN ---
Subjective Date of Service: 06/05/17 Interval History: Patient seen and examined at bedside. Denies fever, chills, shortness of breath , chest discomfort, N/V/D. Pt and feel that the redness to her left LE is improving. Tele: Sinus rhythm, rate 60-70's Family History: Unchanged from Admission Social History: Unchanged from Admission Past Medical History: Unchanged from Admission Objective Active Medications: Acetaminophen (Tylenol Tab*) 650 mg PO Q4H PRN Reason: FEVER/PAIN Hydrocodone Bitart/Acetaminophen ([place] 5-325 Tab*) 1 tab PO Q6H PRN Reason: PAIN Albuterol (Ventolin 2.5 Mg/3 Ml Neb.Ale*) 2.5 mg INH Q2H PRN Reason: SOB/ WHEEZING Aspirin (Aspirin Ec Low Dose*) 81 mg PO DAILY JN Atenolol (Tenormin Tab*) 50 mg PO QAM JN Atorvastatin Calcium (Lipitor*) 20 mg PO BEDTIME JN Brimonidine Tartrate (Alphagan P 0.1% (Nf)) 1 drop BOTH EYES BID JN Dextrose (D50w Syringe 50 Ml*) 12.5 gm IV PUSH .FOR FS < 60 - SS PRN Reason: FS < 60 Diphenhydramine HCl (Benadryl Po*) 25 mg PO Q6H PRN Reason: ITCHING Famotidine (Pepcid Tab*) 20 mg PO DAILY JN Heparin Sodium (Porcine) (Heparin Vial(*)) 5,000 units SUBCUT Q8HR JN Sodium Chloride (Ns 0.9% 1000 Ml*) 1,000 mls @ 150 mls/hr IV PER RATE JN Cefepime HCl 2 gm/ Sodium (Chloride) 50 mls @ 100 mls/hr IVPB Q12H JN Insulin Human Lispro (Humalog*) 0 units SUBCUT AC JN Levothyroxine Sodium (Synthroid Tab*) 50 mcg PO 0600 JN Ondansetron HCl (Zofran Inj*) 4 mg IV Q6H PRN Reason: NAUSEA Oxycodone HCl (Roxycodone Tab*) 5 mg PO Q4H PRN Reason: PAIN Pharmacy Profile Note (Coumadin Per Pharmacy*) 1 note FOLLOW UP .PER PHARMACY PROTOC JN Warfarin Sodium (Coumadin Tab(*)) 7.5 mg PO 1700 ONE Stop: 06/05/17 17:01 Vital Signs - 8 hr 06/05/17 06/05/17 06/05/17 07:14 07:25 11:22 Temperature 98.2 F 98.0 F Pulse Rate 71 67 Respiratory 14 18 16 Rate Blood Pressure 142/72 146/63 (mmHg) O2 Sat by Pulse 98 97 Oximetry Oxygen Devices in Use Now: None Appearance: NAD, sitting up in a chair Respiratory: Symmetrical Chest Expansion and Respiratory Effort, Clear to Auscultation Cardiovascular: NL Sounds; No Murmurs; No JVD, RRR Abdominal: NL Sounds; No Tenderness; No Distention Extremities: - - Bilateral LE edema Skin: - - Mild erythema to left LE, Dressing to right LE clean, dry and intact Neurological: Alert and Oriented x 3, NL Muscle Strength and Tone Lines/Tubes/Other Access: Clean, Dry and Intact Peripheral IV - site benign Nutrition: Taking PO's Result Diagrams: 06/04/17 05:37 06/04/17 05:37 Additional Lab and Data: Microbiology and Other Data: Microbiology 06/03/17 14:10 Urine Culture - Preliminary Urine Proteus Mirabilis Assess/Plan/Problems-Billing Assessment: Ms. Zhao is a 71 yo female with PMH significant for HLD, CKD, hypothyroidism , legally bind, CAD, seizures, depression, afib, DM, and HTN who presented to the emergency room with complaints of wheezing and rash and was found to have signs of sepsis and an allergic reaction. - Patient Problems (1) Allergic reaction Code(s): T78.40XA - ALLERGY, UNSPECIFIED, INITIAL ENCOUNTER SNOMED Code(s): 938527942 Comment: - Suspect secondary to nitrofurantoin - Continue benadryl PRN (2) Sepsis Comment: - Sepsis at admission; unlear etiology, suspect secondary to possible cellulitis. - Leukocytosis improving, now afebrile. - Blood cultures, pending (per lab no growth yet and preliminary results will be back in the AM) - ID consult, input appreciated. - Change to augmentin. (3) Cellulitis Code(s): L03.90 - CELLULITIS, UNSPECIFIED SNOMED Code(s): 460751662 Comment: - Left LE, improving - With associated sepsis on admission - ID consult, appreciate input - Change ABX to augmentin (4) Hydronephrosis Code(s): N13.30 - UNSPECIFIED HYDRONEPHROSIS SNOMED Code(s): 35755415 Comment: - With associated pyelonephritis - Now s/p retrograde pyelogram which confirmed 2 strictures of the L ureter which were partially dilated with a stent placed - Blood cultures pending, urine culture growing 50-75K Proteus Mirabilis ( increased from previous urine culture 05/29) - ID consult, input appreciated - Change to augmentin (5) HLD (hyperlipidemia) Code(s): E78.5 - HYPERLIPIDEMIA, UNSPECIFIED SNOMED Code(s): 76133094 Comment: - Continue statin (6) CKD (chronic kidney disease) Code(s): N18.9 - CHRONIC KIDNEY DISEASE, UNSPECIFIED SNOMED Code(s): 115929933 Comment: - Stage 3 - At baseline (7) Hypothyroidism Code(s): E03.9 - HYPOTHYROIDISM, UNSPECIFIED SNOMED Code(s): 05707532 Comment: - TSH 2.34 - Continue synthroid (allergy to levothyroxine noted, able to take Synthroid) (8) Legally blind Code(s): H54.8 - LEGAL BLINDNESS, DEFINED IN [place] SNOMED Code(s): 99618684 Comment: - Supportive care (9) History of pulmonary embolus (PE) Code(s): Z86.711 - PERSONAL HISTORY OF PULMONARY EMBOLISM SNOMED Code(s): 422294310 Comment: - Chronically anticoagulated with Coumadin - Subtherapeutic INR, but improving - Continue Coumadin, recheck INR on Friday (10) CAD (coronary artery disease) Code(s): I25.10 - ATHSCL HEART DISEASE OF [place] CORONARY ARTERY W/O ANG PCTRS SNOMED Code(s): 56760170 Comment: - Asymptomatic - HX NSTEMI - Continue betablocker, ASA and statin (11) A-fib Code(s): I48.91 - UNSPECIFIED ATRIAL FIBRILLATION SNOMED Code(s): 28427078 Comment: - NSR at this time - Continue coumadin, INR is subtherapeutic but improving (12) Seizure disorder Code(s): G40.909 - EPILEPSY, UNSP, NOT INTRACTABLE, WITHOUT STATUS EPILEPTICUS SNOMED Code(s): 590075225 Comment: - Very distant hx of seizures, not currently an issue. - Reports being taken off Topamax due to "contribution to renal stones" (13) Depression Code(s): F32.9 - MAJOR DEPRESSIVE DISORDER, SINGLE EPISODE, UNSPECIFIED SNOMED Code(s): 22035840 Comment: - Stable - Continue supportive care (14) Systolic heart failure Code(s): I50.20 - UNSPECIFIED SYSTOLIC (CONGESTIVE) HEART FAILURE SNOMED Code( s): 053422613 Comment: - Chronic compensated (15) Diabetes Code(s): E11.9 - TYPE 2 DIABETES MELLITUS WITHOUT COMPLICATIONS SNOMED Code(s) : 76333523 Comment: - Glucose 120-130's - Diet controlled at home (16) HTN (hypertension) Code(s): I10 - ESSENTIAL (PRIMARY) HYPERTENSION SNOMED Code(s): 62488653 Comment: - Mostly normotensive, SBP 110-140's - Continue atenolol (17) DVT prophylaxis Code(s): YMH1656 - SNOMED Code(s): 138344705 Comment: - Coumadin (18) Full code status Code(s): Z78.9 - OTHER SPECIFIED HEALTH STATUS SNOMED Code(s): 905619221 Status and Disposition: Inpatient. Stable for discharge to home today.
[2017-06-05] MEDS ORDERED: Warfarin TAB(*) 7.5 MG PO ONE (17:00)
[2017-06-06] MEDS ORDERED: Cefepime(*) 2 GM in D5W 50 ML BAG* 50 ML IVPB SCH (01:00)
--- NOTE | 2017-06-07 16:36 | DS ---
CC: Popeye Rojo MD; Agustin Osborn MD* DISCHARGE SUMMARY: DATE OF ADMISSION: 06/03/17 DATE OF DISCHARGE: 06/05/17 ATTENDING PHYSICIAN: Ashley Azar MD* (dictated by Linda Kee NP). PRIMARY CARE PROVIDER: Popeye Rojo MD. UROLOGIST: Agustin Osborn MD. PRIMARY DIAGNOSES: 1. Cellulitis. 2. Sepsis, resolved. 3. Allergic reaction, resolved. 4. Urinary tract infection with history of hydronephrosis. SECONDARY DIAGNOSES: 1. Hyperlipidemia. 2. Chronic kidney disease. 3. Hypothyroidism. 4. Legally blind. 5. History of pulmonary embolus. 6. Coronary artery disease. 7. Atrial fibrillation. 8. Seizure disorder. 9. Depression. 10. Systolic heart failure. 11. Diabetes mellitus. 12. Hypertension. CONSULTATION WHILE IN THE HOSPITAL: Dr. Ronaldo Weathers with Infectious Disease. STUDIES WHILE IN THE HOSPITAL: Chest x-ray on 06/03/17: Radiologist's impression: No active disease. DISCHARGE MEDICATIONS: New home medications: 1. Augmentin 875 mg oral twice daily for 7 more days. 2. Benadryl 25 mg oral every 6 hours as needed for itching. Continued home medications: 1. Atorvastatin 20 mg oral daily at bedtime. 2. Atenolol 50 mg oral daily. 3. Levothyroxine 50 mcg oral every morning. 4. Potassium citrate 15 mEq oral twice daily. 5. Alphagan P 0.1% one drop to both eyes twice daily. 6. Aspirin 81 mg oral daily. 7. Oxycodone 5 mg oral every 4 hours as needed for pain. 8. Multivitamin 1 tablet oral daily. 9. Hydrocodone 5/325 one tablet oral every 6 hours as needed for pain. Changed medications: Warfarin adjusted to 7.5 mg oral daily. HISTORY OF PRESENT ILLNESS/HOSPITAL COURSE: Ms. Zhao is a 71-year-old female with past medical history significant for hydronephrosis, hyperlipidemia , chronic kidney disease, hypothyroidism, coronary artery disease, history of PE , seizure disorder, depression, atrial fibrillation, borderline diabetes, hypertension, history of retroperitoneal bleed who presented to the emergency room stating that she had recently been diagnosed in the outpatient setting with UTI, was started on nitrofurantoin. The patient started taking the medication the night prior to her arrival. She had noticed itching behind her ears at first and then on her chest. She then started wheezing on the morning of presentation. When she was not feeling any better, she decided to come to the emergency room. Also to note that the patient has a history of pyelonephritis, hydronephrosis requiring stents with a history of renal calculi and chronic kidney disease. Patient states that she had recently been treated at a wound clinic in [place] with several different antibiotics including Augmentin and Keflex for lower extremity wounds. She has not had any recent fevers, chills. Had an episode of vomiting. She also reported difficulty breathing. She felt that her lower extremity wound was not draining any more than its usual. She had seen Dr. Weathers who felt that her wound looked stable , but because of her allergic reaction secondary probably to NITROFURANTOIN, she came to the hospital for further evaluation. While in the hospital, the patient was noted to have leukocytosis, tachycardic, noted to have a fever up to 101.3. She had a negative chest x-ray and the hospitalists were asked to evaluate her for admission. While in the hospital, patient's sepsis resolved. Her allergy symptoms of itching resolved. It was suspected she had an allergic reaction to NITROFURANTOIN. She had blood cultures pending, per the lab no growth with preliminary results scheduled to be back on the morning of 06/06/17. She was initially treated with IV antibiotics. She was seen in consultation by Dr. Weathers who recommended changing her to Augmentin. She was noted to have a urinary tract infection with Proteus mirabilis still growing in her urine culture that was actually increased from the previous culture from 05/29/17. Overall, the patient feels better and is anxious to be discharged. Ms. Zhao is stable for discharge to home. Vital signs are as follows: Temperature 98.0, heart rate 67, respiratory rate 16, O2 sat 97% on room air, blood pressure 146/63. DISCHARGE PLAN: Ms. Zhao will be discharged to home. ACTIVITY: As tolerated. DIET: She would be on a heart-healthy consistent carbohydrate diet. In regards to her Proteus mirabilis UTI, she will be placed on Augmentin twice daily for 1 week. Her allergic reaction has resolved. For her cellulitis, this appears to be improving. She will be continued on Augmentin for another week per Dr. Weathers's instructions. She has been resumed on her other usual home medications. FOLLOWUP: She has a followup appointment with Dr. Rojo on 06/19/17 at 2:40 p.m. She should continue to follow with Dr. Osborn as previously planned and Dr. Weathers as previously planned. During her stay, she was also noted to have an INR that was supratherapeutic. Her warfarin was adjusted. She was asked to take 7.5 mg daily until Friday and have an INR recheck on Friday, 06/09, and to have Dr. Rojo's office further dose her warfarin after that. She has been asked to return to the emergency room for any chest pain or shortness of breath. This is a summarized report of a complex medical history and hospital stay. For further details, please see the entire medical record. Time for this discharge was approximately 50 minutes, greater than half of that was spent with the patient and her discussing discharge plans and instructions. CONDITION ON DISCHARGE: Stable. Reviewed by GOLDEN GOMEZ 06/09/17 [id number]/[facility] #: [id number] ANTHONY
== END 2017-06-05 17:25 | disposition home or self-care (01) | DRG 872 ==
LOC: ED 08:01 → MEDTELE 11:43
PROVIDERS: ADMIT Internal Medicine; ATTEND Hospitalist
DX: A41.9 Sepsis, unspecified organism (principal); E11.22 Type 2 diabetes mellitus with diabetic chronic kidney disease; I48.91 Unspecified atrial fibrillation; L03.116 Cellulitis of left lower limb; G40.909 Epilepsy, unspecified, not intractable, without status epilepticus; N13.30 Unspecified hydronephrosis; I13.0 Hypertensive heart and chronic kidney disease with heart failure and stage 1 through stage 4 chronic kidney disease, or unspecified chronic kidney disease; I50.20 Unspecified systolic (congestive) heart failure; E66.01 Morbid (severe) obesity due to excess calories; Z68.43 Body mass index [BMI] 50.0-59.9, adult; N39.0 Urinary tract infection, site not specified; E78.5 Hyperlipidemia, unspecified; F32.9 Major depressive disorder, single episode, unspecified; N18.9 Chronic kidney disease, unspecified; T37.8X5A Adverse effect of other specified systemic anti-infectives and antiparasitics, initial encounter; I25.10 Atherosclerotic heart disease of native coronary artery without angina pectoris; Z96.653 Presence of artificial knee joint, bilateral; Z96.611 Presence of right artificial shoulder joint; H54.8 Legal blindness, as defined in USA; B96.5 Pseudomonas (aeruginosa) (mallei) (pseudomallei) as the cause of diseases classified elsewhere; Z79.01 Long term (current) use of anticoagulants; Y92.9 Unspecified place or not applicable; Z79.82 Long term (current) use of aspirin; Z79.891 Long term (current) use of opiate analgesic; Z79.899 Other long term (current) drug therapy; Z88.2 Allergy status to sulfonamides; Z88.8 Allergy status to other drugs, medicaments and biological substances; Z88.1 Allergy status to other antibiotic agents; Z91.040 Latex allergy status; Z83.3 Family history of diabetes mellitus; Z80.6 Family history of leukemia; Z83.511 Family history of glaucoma; I25.2 Old myocardial infarction; Z86.711 Personal history of pulmonary embolism; Z79.84 Long term (current) use of oral hypoglycemic drugs
CPT/HCPCS: 36415; 71045; 80048; 80053; 81003; 81015; 82550; 82553; 83605; 83690; 83735; 83880; 84443; 84484; 85025; 85379; 85610; 85730; 86140; 87040; 87077; 87086; 87184; 87186; 87502; 93005; 94640; 94760; 99285; A9270-GY; C1751; J0692; J0696; J1644; J2930

== ENCOUNTER 2017-07-16 07:19 | Day surgery (SDC) | payer MEDICARE, BC ==
--- NOTE | 2017-07-09 14:49 | HP ---
CC: Dr. Weathers, Dr. Popeye Rojo. * PREOP HISTORY AND PHYSICAL: DATE OF PLANNED ADMISSION AND SURGERY: 07/16/17 HISTORY OF PRESENT ILLNESS: Ms. Zhao is a 71-year-old white female who is admitted with left ureteral stricture, status post placement of left ureteral stent for cystoscopy, balloon dilation of left ureteral strictures and left ureteral stent exchange. Ms. Zhao is a known stone former and had required multiple bilateral procedures in the past. She continues to have two left nonobstructing renal calculi measuring about 6 mm each. They have been asymptomatic. 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 She has had frequent episodes of urosepsis secondary to left hydronephrosis. Those episodes were not caused by ureteral calculi. The patient was finally managed with left ureteral stent drainage. The stent was placed in March 2017. Since that time, she has done very well and has had no recurrent sepsis from obstruction of her left kidney. She, however, has grown resistant organisms and her last urine culture 10 days prior to this admission showed ESBL proteus. She has multiple allergies and there is no oral antibiotic that she can be used to treat this Proteus infection. The patient had an episode of urinary tract infection without associated hydronephrosis about 6 weeks ago and she was treated with IV antibiotics successfully. The patient has multiple medical problems that are detailed in her recent history and physical. She has hyperlipidemia, chronic renal disease, hypothyroidism, history of DVT and pulmonary embolism, ulceration of her lower extremities secondary to venous stasis. She also has atrial fibrillation, seizures disorder, depression, systolic heart failure, diabetes mellitus and hypertension. She is maintained on chronic anticoagulation with warfarin. MEDICATIONS: 1. Atorvastatin 20 mg daily. 2. Atenolol 50 mg daily. 3. Levothyroxine 50 mcg daily. 4. Potassium citrate 15 mEq twice a day to decrease the risk of her stone disease. 5. She is on 1 baby aspirin per day. 6. She takes oxycodone 5 mg every 4 to 6 hours as needed for pain. ALLERGIES: She reports being allergic to LATEX, SULFA, which give her hives; QUINOLONES which gives her seizures; NITROFURANTOIN, which gives her hives and breathing problems; and has intolerance to LEVOTHYROXINE. PHYSICAL EXAMINATION GENERAL: She is a morbidly obese white female who is legally blind. VITAL SIGNS: Blood pressure 130/80, pulse of 70. HEART: Regular and rhythmic. No murmurs. LUNGS: Clear. ABDOMEN: Obese. She has no CVA tenderness. EXTREMITIES: She has bilateral leg edema with healing ulcerations bilaterally. IMPRESSION: 1. 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 2. Nonobstructing left renal calculi. 3. Resistant urinary tract infection. PLAN: The plan is for cystoscopy, left retrograde pyelography, balloon dilation of left ureteral stricture and left ureteral stent exchange (black silicon 8.5 [place], 24 cm long). I discussed the resistant urinary tract infection with Dr. Weathers. He recommended giving her meropenem 2 g IV preoperatively and he does not feel she needs to be treated preoperatively or postoperatively with long-term antibiotics. The patient will likely require chronic left ureteral stent drainage. [id number]/[facility] #: [id number] [facility]
[~2017-07-16 07:19] MED LIST changes: -Buffered Lidocaine 0.9% SYRIN* 5 ML/SYR SYRINGE ONE; +Famotidine IV* 10 MG/ML 2 ML (20 mg) IV ONE; +Meropenem(*) 2 GM in NS 0.9% 100 ML* 100 ML IVPB ONE; -ZOSYN 3.375 GM x ONE DOSE over 30 miuntes IVPB
[2017-07-16] MEDS ORDERED: Famotidine TAB* 20 MG ONE (07:23)
[2017-07-16] MEDS ORDERED: Midazolam* 1 MG/ML 5 ML VIAL (5 MG) ONE (08:07)
[2017-07-16] MEDS ORDERED: fentaNYL* 50 MCG/ML 2 ML VIAL (100 MCG VIAL) ONE (08:07)
[2017-07-16] MEDS ORDERED: Dexamethasone IV* 4 MG/ML 1 ML (4 MG) ONE (10:12)
[2017-07-16] MEDS ORDERED: Lidocaine 2% PF * 5 ML VIAL ONE (10:12)
[2017-07-16] MEDS ORDERED: Ketorolac INJ* 30 MG/ML 1 ML VIAL ONE (10:12)
[2017-07-16] MEDS ORDERED: Propofol* 10 MG/ML 20 ML BTL IV PUSH ONE (10:12)
[2017-07-16] MEDS ORDERED: Ondansetron INJ* 2 MG/ML VIAL ONE (10:12)
[2017-07-16] MEDS ORDERED: Iohexol 180 (CONTRAST) 10 ML SDV IV ONE (10:23)
[2017-07-16] MEDS ORDERED: DiMENhydriNATE IV* 50 MG/ML VIAL IV PUSH PRN (10:33)
[2017-07-16] MEDS ORDERED: Acetaminophen TAB* 325 MG PO PRN (10:33)
[2017-07-16] MEDS ORDERED: oxyCODONE TAB* 5 MG TAB PO PRN (10:33)
[2017-07-16] MEDS ORDERED: Naloxone* 0.4 MG/ML 1 ML VIAL IV PRN (10:33)
[2017-07-16] MEDS ORDERED: Acetaminophen TAB* 325 MG ONE (11:03)
[2017-07-16] MEDS ORDERED: oxyCODONE TAB* 5 MG TAB ONE (11:03)
[2017-07-16] MEDS ORDERED: HYDROmorphone INJ* 2 MG/ML CARPUJECT SYRINGE ONE (11:06)
[2017-07-16] MEDS: HYDROmorphone INJ* 1 MG/ML CARPUJECT SYRINGE IV PRN ×4 (11:07→11:27)
--- NOTE | 2017-07-16 12:11 | OP ---
CC: Dr. Weathers; Dr. Rojo * DATE OF OPERATION: 07/16/17 - [facility] DATE OF : 47 SURGEON: Agustin Osborn MD ANESTHESIOLOGIST: An Louis MD ANESTHESIA: General. PRE-OP DIAGNOSES: 1. Left hydronephrosis. 2. Left ureteral strictures. 3. Status post placement of left ureteral stent. POST-OP DIAGNOSES: 1. Left hydronephrosis. 2. Left 2 ureteral strictures (proximal ureter and mid ureter). 3. Status post placement of left ureteral stent. OPERATIVE PROCEDURE: 1. Cystoscopy. 2. Left retrograde pyelography. 3. Balloon dilation of ureteral strictures. 4. Left ureteral stent exchange (black silicone, 8.5 [place], 24 cm long) INDICATIONS: Ms. Zhao is a 71-year-old white female who is a known stone former and has two nonobstructing left renal calculi measuring about 5 to 6 mm each. She developed left ureteral strictures following spontaneous left retroperitoneal hematoma that occurred while she was on anticoagulation. She had several episodes of urosepsis secondary to the left ureteral obstruction. She has been managed with chronic left ureteral stent. She is now admitted for the above procedure. PATHOLOGY AT CYSTOSCOPY: The bladder mucosa showed only slight hyperemia. There were no bladder lesions seen. The distal limb of the stent was seen coming from the left ureteral orifice. Upon left retrograde pyelography, there was mild left hydronephrosis and the urine from the left kidney looked somewhat cloudy. There were 2 ureteral strictures each measuring about 0.5 cm in length. The proximal one was located at the level of L4 and the distal one was located about 5-cm proximal to the ureterovesical junction. DESCRIPTION OF PROCEDURE: After successful general anesthesia, the patient was placed in the lithotomy position and was prepped and draped for a cystoscopy. Cystoscopy was performed. The bladder was carefully inspected and the above findings were noted. The distal limb of the left ureteral stent was pulled out to the level of the urethral meatus. A flexible tip guidewire was introduced in the lumen of the stent and positioned in the area of the renal pelvis. The stent was removed keeping the guidewire in place. The cystoscope was then introduced over the guidewire and positioned in the bladder. Size 5-Belgian open-ended catheter was then fed on top of the guidewire and introduced all the way into the renal pelvis. The pelvis was decompressed and urine specimen was sent for culture and sensitivity. Retrograde pyelography showed mild left hydronephrosis. The guidewire was then reintroduced over the open-ended catheter and the catheter was removed keeping the guidewire in place. An 18-Belgian balloon dilator was fed on top of the guidewire and positioned in the distal ureter. The balloon was inflated and the ureteral stricture was demonstrated. The balloon was kept inflated, dilating stricture to about 80% of the caliber of the rest of the ureter. The balloon dilator was then introduced into the proximal ureter and the balloon was again inflated and similar dilation was performed. The balloon dilator was then removed. A black silicone stent, 8.5-Belgian, 24- cm long was then fed on top of the guidewire and positioned with the proximal end coiling in the renal pelvis and the distal end coiling inside the bladder. There was good drainage of contrast from the kidney and no extravasation. The patient tolerated the procedure well and left the operating room in good condition. [id number]/[facility] #: [id number] ANTHONY
--- NOTE | 2017-07-16 12:24 | RAD ---
INDICATION: Left ureteral stent exchange COMPARISON: None FINDINGS: 26 seconds of fluoroscopy were provided for the urology department. Fluoroscopic spot imaging of the abdomen were obtained for operative control and show left ureteral stent exchange . CPT II Codes: G9500 (fluoro time doc)
[2017-07-16 13:05] VITALS: BP 135/88
== END 2017-07-16 14:19 | disposition home or self-care (01) ==
LOC: OR 07:19
PROVIDERS: ATTEND Urology
DX: N13.1 Hydronephrosis with ureteral stricture, not elsewhere classified (principal); I10 Essential (primary) hypertension; E78.5 Hyperlipidemia, unspecified; E03.9 Hypothyroidism, unspecified; Z86.718 Personal history of other venous thrombosis and embolism; Z79.01 Long term (current) use of anticoagulants; Z86.711 Personal history of pulmonary embolism; I25.10 Atherosclerotic heart disease of native coronary artery without angina pectoris; R60.0 Localized edema; E11.9 Type 2 diabetes mellitus without complications; F34.1 Dysthymic disorder
CPT/HCPCS: 74420; 87077; 87086; 87106; 87186; A9270-GY; J1100; J1170; J1885; J2185; J2250; J2405; J2704; J3010

== ENCOUNTER 2017-09-09 14:11 | Emergency (ER) | payer MEDICARE, BC ==
--- OUTSIDE RECORDS SUMMARY | 2017-09-09 14:33 | XMS REPORT ---
:1945 External Reference #:[id number] Author Organization [facility] [employer] [facility] Address [address] [address] Phone [phone] Care Team Providers Name Role Phone Popeye Rojo MD Primary Care Physician Unavailable Payers Type Date Identification Numbers Payment Provider Subscriber Medicare Primary Policy Number: [id number] Medicare Christel Zhao PayID: [id number] [address] [place] [address] Medigap Part B Policy Number: [id number] BS Facets Christel Zhao PayID: [id number] [address] [address] [place] [address] Problems Date Description Provider Status Onset: 05/18/2012 [...] Venous Thrombosis (DVT) Maternal Grandfather due to [place] () Maternal Grandmother due to child () [...] killed me" active Severe 04/04/2015 Levothyroxine active 06/16/2017 Nitrofurantoin Urticaria, itching, difficulty active breathing Medications Medication Date Status Form Strength Qnty SIG Indications Ordering Provider Amoxicillin/Clav 08/11 Active Tablets 500-125mg 14tab 1 tab by S81.801D Ronaldo s mouth two D. Potassium times per Macque, day M.D. Atenolol Active Tablets 50mg 30tab 1 po qd Unknown s Lipitor Active Tablets 20mg 90tab one tab po s qhs Alphagan P Active Solution 0.1% 2gtts both Unknown eyes daily One Daily For Active Tablets daily Unknown Women Aspir-Low Active Tablets DR 81mg 30tab 1 po qd s Synthroid Active Tablets 25mcg 30tab 1 by mouth Unknown s every day Warfarin Sodium Active Tablets 7.5mg take as directed - taking 7.5mg daily except Tuesdays, 1.5 tab (monitored by Dr. Rojo) Urocit-K 15 Active Tablets ER 15Meq 1 tab by (1620 mg) mouth twice daily Bumetanide Active Tablets 1mg once daily Darrel MD Popeye Fluoxetine HCL Active Capsules 40mg Take 1 Capsule By Mouth Every Day For Anxiety And Depression Augmentin 11/26 Hx Tablets 875-125mg one by mouth every 12 hours for ten days Topamax 04/04 Hx Tablets 25mg 60tab 1-2 tabs by G40.909 Isabel Ferguson s mouth at Taj, - bedtime as M.DGlenroy 09/23 Zomig 04/06 Hx Tablets 2.5mg 12tab 1 tab by Isabel Ferguson s mouth as Taj, - needed; august Stephanie.DGlenroy 10/31 repeat in hrs. x 1 (no longer taking) Oxycodone/Acetam 08/04 Hx Tablets 5-325mg 60tab 1-2 tabs po Pradeep ino s q 4 hrs prn Maxi - pain Stephanie.Gilles 04/06 Topamax 07/08 Hx Tablets 50mg 90tab 2 po at hs Isabel Ferguson Jordi Boyd M.D. 09/23 Naproxen Hx Tablets 500mg 60tab 1 po tid Unknown s prn - 04/06 Hydrocodone/Acet Hx Tablets 5-325mg 40tab 1-2 po qid Unknown amino s prn - 08/04 Tizanidine HCL Hx Capsules 4mg 30cap tid prn Unknown s - 04/06 Fluoxetine Hx Capsules 10mg 30cap 1-3 tabs Unknown / s every day - prn 01/04 (usually 1) Zaroxolyn Hx Tablets 5mg 30tab 1 tab po Unknown /0000 s 1/2 hour - prior to 05/18 bumex dose /2012 qod Triamcinolone Hx Cream 0.1% 30gm apply bid Unknown Acetonide /0000 until clear - 05/18 Zomig Hx Tablets 2.5mg 12tab 1 tab by Unknown /0000 s mouth as - needed for 04/06/ Bumetanide Hx Tablets 1mg 90tab 1 po qd Unknown /0000 s - 10/31 Betoptic-S 00 Hx Suspension 0.25% 1 drop in Unknown /0000 each eye - bid 04/06 Topamax Hx Tablets 150mg 60tab 1 po q hs Unknown / s - 07/08 Karolina 128 Hx Solution 2% several Unknown / drops in OU - daily and 06/01 pr Diclofenac / Hx Tablets DR 75mg 60tab 1 tab by Unknown Sodium /0000 s mouth daily - 06/18 Lisinopril Hx Tablets 5mg 1 by mouth Unknown /0000 every day - 09/23 Misoprostol Hx Tablets 200mcg Unknown /0000 - 04/03 Xarelto Hx Tablets 20mg 1 by mouth Unknown /0000 every day - 09/23 Amoxicillin/Clav 0000 Hx Tablets 875-125mg 1 tablet po Unknown ulanate /0000 b.i.d x 10 Potassium - days ( last 06/18 day taken /2015 today 06/19/15) Hydrocodone-Acet 00 Hx Tablets 7.5-325mg 1 tablet po Unknown aminophen /0000 every 6 - hours as 09/23 needed for /2016 pain Potassium 00/00 Hx Tablets ER 1 by mouth Unknown Citrate ER /0000 twice a day - 10/31 Cefuroxime 00/00 Hx Tablets 250mg one po at Unknown Axetil /0000 hs - 09/23 Amoxicillin/Clav 00/00 Hx Tablets 875-125mg take one Unknown ulanate /0000 tablet Potassium - twice daily 10/03 Doxycycline 00/00 Hx Capsules 100mg 1 by mouth Unknown Monohydrate /0000 twice a day - 10/03 Oxycodone-Acetam 00/00 Hx Tablets 5-325mg 1 tab by Unknown inophen /0000 mouth every - 4 hours as 09/23 needed for pain Trimethoprim Hx Tablets 100mg one by Unknown /0000 mouth twice - a day 01/06 Nitrofurantoin Hx Capsules 100mg Husseini, Monohydrate/Macr /0000 MD Agustin ocrystals - 06/15 Cephalexin Hx Capsules 500mg Take 1 Unknown /0000 Capsule By - Mouth Three 08/10 Times Daily For Rle Cellulitis For 7 Day Medications Administered in Office Medication Date Status Form Strength Qnty SIG Indications Ordering Provider Depomedrol Administered Injection Pradeep 80MG Domingo German M.D. Vital Signs Date Vital Result Comment 08/11/2017 Height 63.25 inches 5'3.25" Weight 325.12 lb Heart Rate 72 /min BP Systolic Sitting 136 mmHg BP Diastolic Sitting 70 mmHg Respiratory Rate 14 /min Body Temperature 98.1 F BMI (Body Mass Index) 57.1 kg/m2 06/30/2017 Height 63.25 inches 5'3.25" Weight 316.25 lb Heart Rate 72 /min BP Systolic Sitting 142 mmHg BP Diastolic Sitting 76 mmHg Respiratory Rate 16 /min Body Temperature 98.6 F BMI (Body Mass Index) 55.6 kg/m2 06/16/2017 Height 63.25 inches 5'3.25" Weight 335.00 lb Heart Rate 80 /min BP Systolic Sitting 132 mmHg BP Diastolic Sitting 84 mmHg Respiratory Rate 16 /min Body Temperature 99.4 F BMI (Body Mass Index) 58.9 kg/m2 06/02/2017 Height 63.25 inches 5'3.25" Weight 335.00 [...] Test Date Test Result H/L Range Note Order 06/11/2017 Echocardiogram 00 Urine Culture And 05/29/2017 Urine Culture SEE [...] 0-2 Nucleated Red Blood Cells % 0.1 Inr/Protime 03/13/2017 Inr 1.90 High 0.77-1.02 3 Laboratory test finding 03/13/2017 Lipase 21 U/L 11.0-82.0 Creatine Kinase(CK) 35 U/L 10-223 C Reactive Protein 13.44 mg/L High < 5.00 4 B-Type Natriuretic Peptide BNP 62 pg/mL 5 Laboratory test finding 03/13/2017 Lactic Acid 1.5 mmol/L 0.5-2.0 6 Comp Metabolic Panel 03/13/2017 Sodium 140 mmol/L [...] Egfr Non- 31.2 >60 Egfr 40.1 >60 7 Urine Culture And 12/20/2016 Urine Culture SEE RESULT BELOW 8, 9 Sensitivities Urine Culture And 08/20/2012 Urine Culture (SEE NOTE) 10 Sensitivities Type & Screen 08/20/2012 Patient Blood Type A Negative Antibody Screen NEGATIVE Basic Metabolic Panel 08/20/2012 [...] Color Yellow Urine Appearance Turbid Urine Specific Hestand 1.019 1.010-1.030 Urine Esterase Trace Negative Urine Nitrate Negative Negative Urine Urobilinogen Negative E.U./dL Negative Urine Protein Negative mg/dL Negative Urine pH 7.5 5-9 Urine Blood Negative Negative Urine Ketones Negative mg/dL Negative Urine Bilirubin Negative Negative Urine Glucose Negative mg/dL Negative 1 [id number] 2 SEE RESULT BELOW Name: CHRISTEL ZHAO Suzi : [address]: Agustin Osborn MD Acct: [id number] Unit: [id number] AGE: 71 Location: [facility] Re05/29/17 SEX: F Status: REG REF SPEC: [id number] ALCIDES: 05/29/17-[address] [facility] [address]: Agustin Osborn MD REQ: [id number] RECD: 05/29/17 STATUS: ANGEL SMITH DR: Ronaldo Weathers MD _ [facility]: Urine Culture COMMENTS: [id number] QUERIES: Urine Source: Random Procedure Result Reported Site Urine Culture Final 06/01/17- 08 ML Organism 1 PROTEUS MIRABILIS [place] Bar Count 25-50,000 (Moderate) CFU/ML 1. PROTEUS MIRABILIS M.I.C. RX --------- ------ Ampicillin >=32 R Cefazolin >=64 R Cefepime S Ceftriaxone R Ciprofloxacin <=0.25 S Gentamicin <=1 S Levofloxacin <=0.12 S Meropenem <=0.25 S Nitrofurantoin 128 R Tetracycline >=16 R Pipercillin/Tazobactam 32 I Trimethoprim/Sulfamethoxazole <=20 S Aztreonam S Contact the Microbiology Department for any additional antibiotic reporting. * ML - MAIN LAB ([facility]) . END OF REPORT * ML=Testing performed at Main Lab DEPARTMENT OF PATHOLOGY, [address] [place] [address] Arron Argueta M.D. Director [facility] # [id number] 3 Please note the change in INR reference range effective 17. 4 Acute inflammation: >10.00 5 >100 to <200 pg/mL: likely compensated congestive heart failure (CHF) 200 to 400 pg/mL: likely moderate CHF >400 pg/mL: likely moderate to severe CHF 6 [facility] Severe Sepsis and Septic Shock Management Bundle Measure requires all lactic acids initially measuring >2.0 mmol/L be repeated. 7 Because ethnic data is not always readily [...] 15-29 5 Kidney failure <15 (or dialysis) 8 [id number] SEE RESULT BELOW Name: CHRISTEL ZHAO : [address]: Agustin Osborn MD Acct: [id number] Unit: [id number] AGE: 71 Location: [facility] Re12/20/16 SEX: F Status: REG REF SPEC: [id number] ALCIDES: 12/20/16-[address] [facility] [address]: Agustin Osborn MD REQ: [id number] RECD: 12/20/16 STATUS: ANGEL SMITH DR: Ronaldo Weathers MD _ SOURCE: URINE SPDESC: ORDERED: Urine Culture COMMENTS: [id number] QUERIES: Urine Source: Random Procedure Result Reported Site Urine Culture Final 12/25/16- 0855 ML Organism 1 PSEUDOMONAS AERUGINOSA [place] Bar Count 10-25,000 (Moderate) CFU/ML Organism 2 PROTEUS MIRABILIS [place] Bar Count >100,000 (Many) CFU/ML 1. PSEUDOMONAS AERUGINOSA [...] at Main Lab DEPARTMENT OF PATHOLOGY, [address] [place] [address] Arron Argueta M.D. Director [facility] # [id number] Patient: CHRISTEL ZHAO [id number] (Continued) Specimen: [id number] Collected: 12/20/16-999 Received: 12/20/16-1336 (Continued) Procedure Result Reported Site Urine Culture Final (continued) 12/25/16854 2. PROTEUS MIRABILIS M.I.C. RX --------- ------ Ampicillin >=32 R Cefazolin >=64 R Ceftriaxone R Ciprofloxacin <=0.25 S Gentamicin <=1 S Levofloxacin <=0.12 S Meropenem 0.5 S Nitrofurantoin 128 R Tetracycline >=16 R Pipercillin/Tazobactam 32 I Trimethoprim/Sulfamethoxazole <=20 S Aztreonam S Contact the Microbiology Department for any additional antibiotic reporting. * ML - MAIN LAB ([facility]) . END OF REPORT * ML=Testing performed at Main Lab DEPARTMENT OF PATHOLOGY, [address] [place] [address] Arron Argueta M.D. Director [facility] # [id number] RUN DATE: 08/22/12 [facility] LAB LIVE PAGE 1 RUN TIME: [address] [place], [place] [address] Specimen Inquiry Name: CHRISTEL ZHAO : [address]: Pradeep German MD Acct: [id number] Unit: [id number] AGE: 66 Location: LAB Re08/20/12 SEX: F Status: REG REF SPEC: [id number] ALCIDES: 08/20/12-[address] [facility] [address]: Pradeep German MD REQ: [id number] RECD: 08/20/12 STATUS: ANGEL SMITH DR: Popeye Rojo MD _ SOURCE: URINE SPDESC: ORDERED: Urine Culture Procedure Result Verified Site Urine Culture Final 08/22/12- 1014 ML Organism 1 NORMAL ALEN [place] Bar Count 25-50,000 (Moderate) CFU/ML END OF REPORT * ML=Testing performed at Main Lab DEPARTMENT OF PATHOLOGY, [address] [place] [address] Arron Argueta M.D. Director [facility] Permit #[id number] 11 Because ethnic data is not always [...] Procedures Date CPT Code Description Status Comment 06/11/2017 69824 ECHO Transthoracic, Completed Real-Time 2D With Doppler And Color Flow 06/11/2017 94915 ECHO Transthoracic, Completed Real-Time 2D With Doppler And Color Flow 12/11/2016 20267 Moderate Sedation Services; Completed Same Phys Each Additional 15 Mins 12/11/2016 39372 Moderate Sedation Services; Completed Same Phys Intl 15 Mins; PT >=5 Years 12/11/2016 32634 Color Flow Doppler/Interp Completed & Reprt 12/11/2016 74973 Pulse Completed Wave/Continuous-Interp.RPT 12/11/2016 26353 Echocardiography, Completed Transesophageal, Real Time W/Image 2D W/W/O M-M 11/01/2016 87805 EKG Tracing & Completed Interpretation 10/21/2016 89940 EKG, Interpretation Only Completed 10/21/2016 55562 ECHO Transthorasic Realtime Completed 2D W Doppler & Color Flow Hosp 10/20/2016 30355 EKG, Interpretation Only Completed 07/15/2016 19410 EEG Recording Awake & Completed Asleep 06/04/2016 22275 EKG, Interpretation Only Completed 06/02/2016 83196 ECHO Transthorasic Realtime Completed 2D W Doppler & Color Flow Hosp 06/02/2016 54479 EKG, Interpretation Only Completed 05/31/2016 93450 Insert Non-Tunneled Venous Completed Catether 03/14/2016 16889 EKG Tracing & Completed Interpretation 06/19/2015 12075 EKG Tracing & Completed Interpretation 08/26/2014 28685 ECHO Transthoracic, Completed Real-Time 2D With Doppler And Color Flow 08/09/2014 12358 EKG Tracing & Completed Interpretation 01/04/2014 63745 EKG Tracing & Completed Interpretation 04/22/2013 39969 ECHO Transthoracic, Completed Real-Time 2D With Doppler And Color Flow 04/12/2013 98158 EKG Tracing & Completed Interpretation 10/22/2012 48252 Rad Shoulder Comp, Min. 2 Completed Views 09/24/2012 09691 ECHO Transthorasic Realtime Completed 2D W Doppler & Color Flow Hosp 09/24/2012 83008 Pulse Completed Wave/Continuous-Interp.RPT 09/24/2012 62947 Color Flow Doppler/Interp Completed & Reprt 09/04/2012 02110 EKG, Interpretation Only Completed 09/04/2012 16371 Arthroplasty,Total Shoulder Completed Replacement (TSR) 09/04/2012 85084 Arthroplasty,Total Shoulder Completed Replacement (TSR) 06/23/2012 20596 Rad Shoulder Comp, Min. 2 Completed Views 06/23/2012 31652 Inject/Drain Joint/Bursa Completed Major 05/22/2012 04627 ECHO Transthoracic, Completed Real-Time 2D With Doppler And Color Flow 05/18/2012 74103 EKG Tracing & Completed Interpretation 05/04/2007 Diabetic Retinal Eye Exam Completed Document: 05/04/07 - Consult Ophthalmology Encounters Type Date Location Provider CPT E/M Dx Office Visit 06/30/2017 [facility] Indra Campoverde 31395 R82.71 2:40p Infectious Torsten Weathers M.D. Z96.0 I87.2 Office Visit 06/16/2017 3:20p [facility] Indra Campoverde 71044 L03.116 Infectious Diseases Bindu Weathers R82.71 Z96.0 Office Visit 06/05/2017 10:39a [facility] Linda Villanueva, 30720 A41.9 Assoc, [employer] Hospitalists L03.116 E03.9 I10 Office Visit 06/04/2017 10:38a [facility] Linda Villanueva, 31987 A41.9 Assoc, [employer] Hospitalists L03.116 E03.9 I10 Office Visit 06/03/2017 10:34a [facility] Asssaloni, Rojelio Hargrove, 84914 A41.9 Hospitalists NGlenroyPGlenroy L03.116 E03.9 I10 Office Visit 06/03/2017 11:03a [facility] Indra Campoverde 49793 L03.116 Infectious Torsten Weathers M.D. N39.0 R50.9 R53.81 Office Visit 06/02/2017 3:40p [facility] Indra Campoverde 20214 L97.819 Infectious Torsten Weathers M.D. Office Visit 03/16/2017 9:11a [facility] 54289 N30.01 Assoc, Hospitalists KINGS Spears N13.30 I48.91 I10 Office Visit 03/15/2017 9:10a [facility] Quoc Spears 49828 N30.01 Assoc, [facility] Hospitalhero N13.30 I48.91 I10 Office Visit 03/14/2017 1:54p [facility] nIdra Weathers, 20884 N12 Infectious Diseases Bindu N13.30 R32 N18.9 Office Visit 03/14/2017 9:10a [facility] Quoc Spears, 70512 N30.01 Assoc,pc PA Hospitalists I48.91 N13.30 I10 Office Visit 03/13/2017 9:09a [facility] Rojelio Hargrove, 61902 N30.01 Assoc,pc Hospitalists N.P. N13.30 I48.91 I10 Office Visit 02/18/2017 1:15p [facility] Lisa Brown, 57217 H90.3 At [facility].Glenroy Office Visit 01/07/2017 8:30a [facility] Indra Campoverde 03570 Z86.19 Infectious Diseases Bindu Weathers R32 Office Visit 01/03/2017 2:20p [facility] Aby Balbuena, 22740 I34.0 MPhil I10 I25.10 Office Visit 11/26/2016 7:59a [facility] Indra Weathers, 73966 R30.0 Infectious Diseases Bindu N20.0 Z96.0 Office Visit 11/26/2016 9:43a [facility], [place] [address] N39.0 Hospitalists N18.3 Z86.79 Z86.711 Office Visit 11/25/2016 9:42a [facility],[place] [address] N39.0 Hospitalists N18.3 Z86.79 Z86.711 Office Visit 11/24/2016 9:41a [facility],[place] [address] N39.0 Hospitalists N18.3 Z86.79 Z86.711 Office Visit 11/23/2016 9:41a [facility],[place] [address] N39.0 Hospitalists N18.3 Z86.79 Office Visit 11/22/2016 9:40a [facility] Linda Villanueva, 10479 N39.0 Assoc,pc [employer] Hospitalists N18.3 Z86.79 Office Visit 11/01/2016 2:20p [facility] Hannahtaoracio Balbuena, 47874 I34.0 M.DGlenroy R06.02 Office Visit 10/23/2016 1:40p [facility] Tal Roman, 28202 R65.20 Assoc, Hospitalists Bindu A41.9 E87.2 L03.119 Office Visit 10/22/2016 1:40p [facility] Abel, 52763 R65.20 Assoc, Hospitalists Bindu L03.119 E87.2 A41.9 Office Visit 10/22/2016 10:39a [facility] Ronaldo Weathers, 82584 N39.0 Infectious Diseases M.Gilles M54.5 R06.00 Z96.0 Office Visit 10/21/2016 10:25a [facility] Ronaldo Weathers, 85039 R82.90 Infectious Diseases M.Gilles R94.4 I26.99 R06.00 I34.0 Z96.0 Office Visit 10/21/2016 2:16p [facility], Zacarias Ferguson 14047 R65.20 Hospitalists Juventino Walker L03.119 A41.9 E87.2 Office Visit 10/20/2016 2:16p [facility] [place] [address] N39.0 Hospitalists I26.99 A41.9 Office Visit 10/19/2016 2:15p [facility] Mc Robles, 04912 I26.99 Assoc, Hospitalists Bindu,FACP N39.0 A41.9 Office Visit 10/03/2016 8:30a [facility] Isabel Vang, 40124 G40.909 Services Of rAisteo Ruano G43.109 Office Visit 09/24/2016 8:30a [facility] Ronaldo Weathers, 18897 N20.0 Infectious Diseases MPhil Z87.440 N10 R32 Office Visit 09/17/2016 3:03p [facility]oc, [place] [address] N12 Hospitalists N13.9 N13.30 I10 Office Visit 09/16/2016 3:02p [facility], [place] [address] N12 Hospitalists N13.9 N13.30 I10 Office Visit 09/16/2016 9:36a [facility] Ronaldo Weathers, 39369 N13.30 Infectious Diseases M.DGlenroy R10.9 N17.9 R78.81 D72.829 I87.8 Office Visit 09/15/2016 3:01p [facility], [place] [address] N12 Hospitalists N13.30 I10 H54.8 Office Visit 09/14/2016 3:01p [facility], [place] [address] N12 Hospitalists N13.30 I10 H54.8 Office Visit 09/13/2016 2:59p [facility], Ashley Azar M.D. 34150 N12 Hospitalists N13.30 H54.8 I10 Office Visit 07/31/2016 3:21p [facility], Bill Rivero M.D. 11048 Hospitalists Office Visit 07/31/2016 3:21p [facility], Nydia Bryant, 70545 N12 Hospitalists M.DGlenroy E03.9 I26.99 Office Visit 06/15/2016 10:36a [facility], [place] [address] R58 Hospitalists E11.8 A41.9 Office Visit 06/14/2016 10:35a [facility] [address] R58 Hospitalists R78.81 E11.8 Office Visit 06/13/2016 10:35a [facility], [place] [address] R58 Hospitalists R78.81 E11.8 Office Visit 06/12/2016 10:34a [facility], [place] [address] R58 Hospitalists E11.8 A41.9 Office Visit 06/11/2016 10:34a [facility], Trent Ferrari, 92258 R58 Hospitalists MGlenroyDGlenroy A41.9 E11.8 Office Visit 06/10/2016 10:33a [facility], Trent Ferrari, 81877 R58 Hospitalists M.DGlenroy E11.8 Office Visit 06/09/2016 10:32a [facility], Trent Wideman, 39345 R58 Hospitalists Bindu E11.8 A41.9 Office Visit 06/08/2016 10:13a [facility], Trent Wideman, 57875 R58 Hospitalists MPhil R78.81 E11.8 Office Visit 06/07/2016 10:12a [facility], [place] [address] N17.9 Hospitalists N13.9 R65.21 R78.81 Office Visit 06/06/2016 10:12a [facility], [place] [address] N13.9 Hospitalists N17.9 R65.21 R78.81 Office Visit 06/05/2016 10:11a [facility], [place] [address] N13.9 Hospitalists N17.9 R65.21 R78.81 Office Visit 06/04/2016 10:11a [facility], Zacarias Walker, 39432 N17.9 Hospitalists D.OGlenroy R78.81 R65.21 E11.8 Office Visit 06/03/2016 10:10a [facility], Maurizio De La Torre, 06219 N17.9 Hospitalists R78.81 E11.8 R65.21 Office Visit 06/02/2016 10:10a [facility], Maurizio De La Torre, 20091 N17.9 Hospitalists R78.81 R65.21 E11.8 Office Visit 06/01/2016 10:09a [facility], Maurizio De La Torre, 17462 R65.21 Hospitalists E11.8 R78.81 N17.9 Office Visit 05/31/2016 10:08a [facility], Jacy Roman, N.PGlenroy 89418 R65.21 Hospitalists N13.2 A41.9 Office Visit 05/31/2016 10:32a [facility], Maurizio De La Torre, 41330 R65.21 Hospitalists N10 E87.2 N17.9 D72.819 Office Visit 05/06/2016 8:08a [facility] [place] [address] R06.02 Assoc,pc Hospitalists J10.1 Z86.711 I10 Office Visit 05/05/2016 [facility] Linda Villanueva, 82922 R06.02 8:07a Assoc, [employer] Hospitalists J10.1 Z86.711 I10 Office Visit 04/04/2016 8:30a [facility] Isabel Vang, 59026 G43.109 Services Of Aristeo Ruano G40.909 Office Visit 03/14/2016 4:00p [facility] Qutaybeh S. Maghareymundo, 35184 E66.01 M.DGlenroy I10 I25.10 I34.0 R94.31 Office Visit 07/28/2015 12:20p [facility], Kimberly Guajardo, 14517 N12 Hospitalists MGlenroyDGlenroy E03.9 N17.9 Office Visit 07/26/2015 12:18p [facility], Trent Ferrari, 21203 N12 Hospitalists MPhil R56.9 N17.9 E03.9 Office Visit 06/19/2015 11:00a [facility] Qutaybeh S. Maghareymundo, 54963 E66.01 M.DGlenroy I10 I25.10 R06.02 I34.0 Office Visit 04/04/2015 8:30a [facility] Isabel Vang, 98652 G43.109 Services Of Aristeo Ruano G40.909 Office Visit 03/09/2015 2:19p [facility], [place] [address] I26.99 Hospitalists E66.01 I82.403 I10 Office Visit 03/08/2015 2:19p [facility], [place] [address] I26.99 Hospitalists E66.01 I82.403 I10 Office Visit 12/01/2014 11:02a [facility], Kerline Soria, 65832 592.0 Hospitalists N.P. 591 244.9 401.9 Office Visit 11/30/2014 11:02a [facility], Bill Rivero M.D. 86875 592.0 Hospitalists 591 244.9 401.9 Office Visit 08/09/2014 11:00a [facility] Qutaybeh S. Sree, 73694 414.01 MPhil 424.0 401.1 272.4 278.00 786.05 Office Visit 04/05/2014 8:45a [facility] Isabel Vang, 35796 346.10 Services Of Aristeo Ruano Office Visit 01/04/2014 4:00p [facility] Qutaybeh S. 22268 401.0 Bindu Balbuena 424.0 414.01 272.4 Office Visit 04/12/2013 9:40a [facility] Hannahtaybeh S. Sree, 78132 278.00 MPhil 414.01 401.1 424.0 424.2 272.4 786.05 Office Visit 04/06/2013 8:45a [facility] Isabel Vang, 34195 346.90 Services Of Aristeo Ruano 345.40 Office Visit 09/25/2012 8:39a [facility], Nydia Bryant, 56242 415.19 Hospitalists M.DGlenroy 278.00 345.10 V43.61 Office Visit 09/24/2012 8:38a [facility], Nydia Bryant, 26592 415.19 Hospitalists MGlenroyDGlenroy 278.00 345.10 V43.61 Office Visit 09/23/2012 8:38a [facility] Ashley Azar, 30134 415.19 Assoc, Hospitalists M.DGlenroy 278.00 345.10 V43.61 Office Visit 08/04/2012 1:00p [facility] Pradeep German M.D. 02021 715.91 C.M.A. Office Visit 06/23/2012 9:45a [facility] Pradeep German M.D. 24058 715.91 C.M.A. Office Visit 06/18/2012 10:20a [facility] H[place]htaybluis fernando S. 63662 414.01 Bindu Balbuena 278.01 272.4 401.9 786.05 Office Visit 05/18/2012 9:00a [facility] Qutaybeh S. Ciscoydah, 81832 794.31 M.Gilles 794.31 272.4 272.4 786.50 786.50 401.9 401.9 786.05 782.3 278.01 Office Visit 11/06/2011 8:30a [facility] Isabel Vang, 24482 784.0 Services Of Aristeo Ruano 780.39 389.9 Office Visit 07/05/2009 10:00a [facility] [place] [address] 844.9 C.M.A. 924.11 924.21 Office Visit 06/14/2009 3:45p [facility] [place] [address] 844.9 C.M.A. 845.10 924.11 924.21 Office Visit 06/05/2009 2:45p [facility] [place] [address] 844.9 C.M.A. 924.20 924.11 924.21 Plan of Care 08/11/2017 - Ronaldo Weathers M.D.I87.2 Venous insufficiency (chronic) ( peripheral)S81.801D Unspecified open wound, right lower leg, subs encntrNew Medication:Amoxicillin/Clavulanate Potassium 500-125 mgNew Labs:Wound Culture/ SensiComments:soft tissue infection appears resolved, which suggests that Pseudomonas that grew may not have been a pathogen. Will extend augmentin course as they have seen improvement while she has been on it. They will call if return of redness or drainage.
[2017-09-09 14:53] LABS: ABS Basophils 0.1 10^3/ul (0-0.2); ABS Eosinophils 0.2 10^3/ul (0-0.6); ABS Lymphocytes 1.9 10^3/ul (1.0-4.8); ABS Monocytes 0.8 10^3/ul (0-0.8); ABS Neutrophils 7.1 10^3/ul (1.5-7.7); ABS Nucleated RBC 0 10^3/ul; Eosinophil % 1.5 % (0-6); Hematocrit 41 % (35-47); Hemoglobin 13.4 g/dl (12.0-16.0); Lymphocyte % 18.9 % (25-47); Mean Corpuscular HGB Conc 33 g/dl (31-36); Mean Corpuscular Hemoglobin 28 pg (27-31); Mean Corpuscular Volume 86 fL (80-97); Mean Platelet Volume 8.3 um3 (7.4-10.4); Nucleated Red Blood Cells % 0; Platelet Count 275 10^3/ul (150-450); Red Blood Count 4.75 10^6/ul (4.0-5.4); Red Cell Distribution Width 17 % (10.5-15)
[2017-09-09 15:16] LABS: EGFR Non-African American 31.9 (>60)
[2017-09-09] MEDS ORDERED: Cefepime 2 GM in Dextrose(*) 2 GM/50 ML BAG IV ONE (16:51)
[2017-09-09 17:50] LABS: Urine Appearance Cloudy; Urine Blood 2+ (Negative); Urine Color Yellow; Urine Ketones Negative (Negative); Urine Protein 1+(30 mg/dL) (Negative); Urine Specific Gravity 1.018 (1.010-1.030); Urine Urobilinogen Negative (Negative)
[2017-09-09 18:53] VITALS: BP 168/86
--- NOTE | 2017-09-11 11:51 | ED ---
Hi Maki Angela, scribed for Gerson Vital MD on 09/09/17 at 1649 . Skin Complaint - HPI Summary HPI Summary: This pt is a 71 y/o female presenting to [facility] for worsening wound on right leg. Pt reports she has been on wound care in [place] for the past 20 weeks. She states her wound has been worsening in size and in redness. Today wound care saw red streaks up her right leg and was referred to the ED for antibiotics. Pt had 3 wound cultures done, all resulted positive for pseudomonas. Denies fever, chills. PMHx includes diabetes. Pt is not currently taking any medications for diabetes. - History of Current Complaint Chief Complaint: EDExtremityLower Time Seen by Provider: 09/09/17 16:34 Stated Complaint: NEEDS IV ANTIBIOTICS PER WOUND CLINIC Hx Obtained From: Patient Hx Last Menstrual Period: N/A Onset/Duration: Started Days Ago, Still Present Skin Exposure Onset/Duration: Days Ago Timing: Lasting Days Current Severity: Moderate Pain Intensity: 5 Pain Scale Used: 0-10 Numeric Skin Location: Leg - right Character: Pruritus, Redness Aggravating Symptom(s): Nothing Alleviating Symptom(s): Nothing Associated Signs & Symptoms: Red Streaks - up right leg - Additional Pertinent History Primary Care Physician: [id number] - Allergy/Home Medications Allergies/Adverse Reactions: Allergies Allergy/AdvReac Type Severity Reaction Status Date / Time latex Allergy Itching Verified 09/09/17 14:19 levofloxacin Allergy Anaphylatic Verified 09/09/17 14:19 Shock levothyroxine Allergy Rash And Verified 09/09/17 14:19 Itching nitrofurantoin Allergy Hives/Diff. Verified 09/09/17 14:19 Breathing/I tching Sulfa (Sulfonamide Allergy Hives Verified 09/09/17 14:19 Antibiotics) PMH/Surg Hx/FS Hx/Imm Hx Endocrine/Hematology History: Reports: Hx Diabetes - borderline DM, Hx Thyroid Disease - hypothyroidism Cardiovascular History: Reports: Hx Coronary Artery Disease, Hx Deep Vein Thrombosis, Hx Embolism - multiple PEs, Hx Hypercholesterolemia, Hx Hypertension , Hx Peripheral Vascular Disease, Other Cardiovascular Problems/Disorders - cardiac cath Denies: Hx Congestive Heart Failure Respiratory History: Reports: Hx Pulmonary Embolism - POST OP AFTER SHOULDER REPLACEMENT 2012, 2014 Denies: Hx Asthma, Hx Chronic Obstructive Pulmonary Disease (COPD) GI History: Denies: Hx Gall Bladder Disease - gall bladder removed, Hx Ulcer, Other GI Disorders History: Reports: Hx Kidney Infection, Hx Kidney Stones - left, Hx Renal Disease - LT URETERAL STRICTURE. LT STENT, Other Problems/Disorders - Kidney stones July 2011 Denies: Hx Dialysis Musculoskeletal History: Reports: Hx Arthritis, Other Musculoskeletal History - Bilateral knee replacements, R shoulder replacement, fractured R elbow Sensory History: Reports: Hx Cataracts, Hx Contacts or Glasses, Hx Glaucoma, Hx Legally Blind, Hx Vision Problem - Pt is legally blind, Hx Hearing Aid - bilat, Hx Hearing Problem, Other Sensory Impairments Opthamlomology History: Reports: Hx Cataracts, Hx Contacts or Glasses, Hx Glaucoma, Hx Legally Blind, Hx Vision Problem - Pt is legally blind, Other Sensory Impairments Neurological History: Reports: Hx Migraine - Hx of none recently, Hx Seizures - Hx of, none recently, Other Neuro Impairments/Disorders - Hx seizures, none recently Psychiatric History: Reports: Hx Autism Denies: Hx Anxiety, Hx Depression - Cancer History Hx Chemotherapy: No Hx Radiation Therapy: No - Surgical History Surgery Procedure, Year, and Place: Hysterectomy September 2014, 1970 R eye cataract removed, 1989 L eye cataract removed, bilateral knee replacements, R shoulder replacement, 2011 cholecystectomy, plate/screws in R elbow, kidney stone treatment x 3 august 09 3 kidney stones remover and litho. done on others bilaterly. Hx Anesthesia Reactions: No Infectious Disease History: No Infectious Disease History: Denies: Hx Hepatitis, Hx Human Immunodeficiency Virus (HIV), Traveled Outside the [place] in Last 30 Days Comment Only: History Other Infectious Disease - kidney infection - Family History Known Family History: Positive: Cardiac Disease, Hypertension - Social History Alcohol Use: Rare Alcohol Amount: 3-4 PER YEAR Hx Substance Use: No Substance Use Type: Reports: None Hx Tobacco Use: No Smoking Status (MU): Never Smoked Tobacco Have You Smoked in the Last Year: No Review of Systems Negative: Fever, Chills Eyes: Negative ENT: Negative Cardiovascular: Negative Respiratory: Negative Skin: Other - chronic wound on RLE, red streaks All Other Systems Reviewed And Are Negative: Yes Physical Exam - Summary Physical Exam Summary: VITAL SIGNS: Reviewed. GENERAL: Patient is a well-developed and nourished female who is lying comfortable in the stretcher. Patient is not in any acute respiratory distress. HEAD AND FACE: No signs of trauma. No ecchymosis, hematomas or skull depressions. No sinus tenderness. EYES: PERRLA, EOMI x 2, No injected conjunctiva, no nystagmus. EARS: Hearing grossly intact. Ear canals and tympanic membranes are within normal limits. MOUTH: Oropharynx within normal limits. NECK: Supple, trachea is midline, no adenopathy, no JVD, no carotid bruit, no c- spine tenderness, neck with full ROM. CHEST: Symmetric, no tenderness at palpation LUNGS: Clear to auscultation bilaterally. No wheezing or crackles. CVS: Regular rate and rhythm, S1 and S2 present, no murmurs or gallops appreciated. ABDOMEN: Soft, non-tender. No signs of distention. No rebound no guarding, and no masses palpated. Bowel sounds are normal. EXTREMITIES: FROM in all major joints, no edema, no cyanosis or clubbing. NEURO: Alert and oriented x 3. No acute neurological deficits. Speech is normal and follows commands. SKIN: Dry and warm. RLE: chronic wound 2 x 2 cm with surrounding erythema and streaking into proximal lower leg. Triage Information Reviewed: Yes Vital Signs On Initial Exam: Initial Vitals Temp Pulse Resp BP Pulse Ox 97.8 F 79 16 160/76 99 09/09/17 14:15 09/09/17 14:15 09/09/17 14:15 09/09/17 14:15 09/09/17 14:15 Vital Signs Reviewed: Yes Diagnostics - Vital Signs Vital Signs Temp Pulse Resp BP Pulse Ox 09/09/17 14:15 97.8 F 79 16 160/76 99 - Laboratory Lab Results: Lab Results 09/09/17 09/09/17 09/09/17 Range/Units 14:44 14:44 14:44 WBC 10.0 (3.5-10.8) 10^3/ul RBC 4.75 (4.0-5.4) 10^6/ul Hgb 13.4 (12.0-16.0) g/dl Hct 41 (35-47) % MCV 86 (80-97) fL MCH 28 (27-31) pg MCHC 33 (31-36) g/dl RDW 17 H (10.5-15) % Plt Count 275 (150-450) 10^3/ul MPV 8.3 (7.4-10.4) um3 Neut % (Auto) 70.9 (38-83) % Lymph % (Auto) 18.9 L (25-47) % Amador % (Auto) 7.8 H (0-7) % Eos % (Auto) 1.5 (0-6) % Baso % (Auto) 0.9 (0-2) % Absolute Neuts (auto) 7.1 (1.5-7.7) 10^3/ul Absolute Lymphs (auto) 1.9 (1.0-4.8) 10^3/ul Absolute Monos (auto) 0.8 (0-0.8) 10^3/ul Absolute Eos (auto) 0.2 (0-0.6) 10^3/ul Absolute Basos (auto) 0.1 (0-0.2) 10^3/ul Absolute Nucleated RBC 0 10^3/ul Nucleated RBC % 0 Sodium 143 (139-145) mmol/L Potassium 4.7 (3.5-5.0) mmol/L Chloride 106 (101-111) mmol/L Carbon Dioxide 31 (22-32) mmol/L Anion Gap 6 (2-11) mmol/L BUN 35 H (6-24) mg/dL Creatinine 1.60 H (0.51-0.95) mg/dL Est GFR ( Amer) 41.0 (>60) Est GFR (Non-Af Amer) 31.9 (>60) BUN/Creatinine Ratio 21.9 H (8-20) Glucose 154 H (70-100) mg/dL Lactic Acid 1.7 (0.5-2.0) mmol/L Calcium 9.0 (8.6-10.3) mg/dL Total Bilirubin 0.30 (0.2-1.0) mg/dL AST 15 (13-39) U/L ALT 15 (7-52) U/L Alkaline Phosphatase 67 (34-104) U/L C-Reactive Protein 20.55 H (< 5.00) mg/L Total Protein 7.5 (6.4-8.9) g/dL Albumin 3.7 (3.2-5.2) g/dL Globulin 3.8 (2-4) g/dL Albumin/Globulin Ratio 1.0 (1-3) Result Diagrams: 09/09/17 14:44 09/09/17 14:44 Lab Statement: Any lab studies that have been ordered have been reviewed, and results considered in the medical decision making process. Re-Evaluation - Re-Evaluation First Eval Re-Evaluation Time: 17:49 Comment: I reviewed the lab results with the pt. I discussed the plan to discharge and follow up with Dr. Weathers. Pt understands and agrees. Course/Dx - Course Assessment/Plan: Pt is a 71 y/o female who presents with worsening wound on right leg. Pt reports she has been on wound care in [place] for the past 20 weeks. She states her wound has been worsening in size and in redness. Today wound care saw red streaks up her right leg and was referred to the ED for antibiotics. Pt had 3 wound cultures done, all resulted positive for pseudomonas. Denies fever, chills. Test results without any significant abnormalities except for WBC of 10, CRP of 20.5. I discussed the case with Dr. Weathers, from infectious disease, who requests for the pt to be given Cefepime 2 grams and discharge the pt home with follow up in his office. I discussed the plan with the pt and she agrees. I discussed all the findings and test results with the patient. All questions were answered to patient satisfaction. There were no further complaints or concerns. She is instructed to return to the ED for any worsening or new symptoms. Pt is hemodynamically stable, alert and oriented x3. - Diagnoses Provider Diagnoses: Cellulitis of right lower extremity, Chronic wound of extremity - Physician Notifications Discussed Care Of Patient With: Ronaldo Weathers MD Time Discussed With Above Provider: 16:39 Instructed by Provider To: Other - I discussed pt care with Dr. Weathers, from infectious disease, who recommends Cefepime and follow up in his office. Discharge - Sign-Out/Discharge Documenting (check all that apply): Discharge/Admit/Transfer - discharge - Discharge Plan Condition: Stable Disposition: HOME Patient Education Materials: Cellulitis (ED), Chronic Wound Care (ED) Referrals: Popeye Rojo MD [Primary Care Provider] - Jasiel OBANDO,Ronaldo Campoverde [Medical Doctor] - Additional Instructions: Please follow up with Dr. Weathers. RETURN TO THE ED FOR ANY NEW OR WORSENING SYMPTOMS. The documentation as recorded by the scribe, Do,Angelita accurately reflects the service I personally performed and the decisions made by me, Gerson Vital MD.
== END 2017-09-09 18:51 | disposition home or self-care (01) ==
LOC: ED 14:11
DX: S81.801A Unspecified open wound, right lower leg, initial encounter (principal); L03.115 Cellulitis of right lower limb; X58.XXXA Exposure to other specified factors, initial encounter; Y93.9 Activity, unspecified; Y92.9 Unspecified place or not applicable; E11.9 Type 2 diabetes mellitus without complications; E03.9 Hypothyroidism, unspecified; I25.10 Atherosclerotic heart disease of native coronary artery without angina pectoris; I10 Essential (primary) hypertension; E78.00 Pure hypercholesterolemia, unspecified; Z86.718 Personal history of other venous thrombosis and embolism; I73.9 Peripheral vascular disease, unspecified; Z86.711 Personal history of pulmonary embolism; Z87.442 Personal history of urinary calculi; F84.0 Autistic disorder; Z90.710 Acquired absence of both cervix and uterus; Z96.653 Presence of artificial knee joint, bilateral; Z96.611 Presence of right artificial shoulder joint; Z90.49 Acquired absence of other specified parts of digestive tract; Z88.2 Allergy status to sulfonamides; Z88.8 Allergy status to other drugs, medicaments and biological substances; Z88.1 Allergy status to other antibiotic agents; Z91.040 Latex allergy status; Z82.49 Family history of ischemic heart disease and other diseases of the circulatory system
CPT/HCPCS: 36415; 80053; 81003; 81015; 83605; 85025; 86140; 87040; 87077; 87086; 87186; 99283; J0692

== ENCOUNTER 2018-01-05 05:50 | Day surgery (SDC) | payer MEDICARE, BC ==
--- NOTE | 2017-12-22 08:28 | HP ---
HISTORY AND PHYSICAL: DATE OF PLANNED ADMISSION AND SURGERY: 01/05/18 HISTORY OF PRESENT ILLNESS: Ms. Zhao is a 72-year-old white female with a left ureteral stricture, left renal calculus disease, recurrent urinary tract infections, left hydronephrosis, status post placement of left ureteral stent for cystoscopy and left ureteral stent exchange and possible left ureteroscopy and laser lithotripsy. Ms. Zhao is a known stone former and had required multiple bilateral procedures in the past. 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 She had balloon dilation of the strictures and stent placement, however, following the stent removal, she developed episodes of sepsis and recurrent hydronephrosis due to ureteral obstruction. The patient is known to have a 6 mm nonobstructing calculus in the lower pole calyx of the left kidney. The patient has done very well on stent drainage without recurrence of the episodes of sepsis. The stent was last replaced in July 2017. She is now admitted for left ureteral stent exchange. If the calculus is noted to have dropped in the ureter, or if it it is accessible, ureteroscopy and laser lithotripsy will be performed. PAST MEDICAL HISTORY AND SYSTEM REVIEW: She is morbidly obese. She has hyperlipidemia, chronic renal disease, hypothyroidism. She has history of pulmonary embolism and coronary artery disease, atrial fibrillation, seizure disorder. She was treated at the [facility] because of recurrent ulcerations of her bilateral lower extremities, which were secondary to chronic edema and chronic venous stasis probably secondary to her DVT's. MEDICATIONS: She is maintained on the following medications: 1. Atorvastatin 20 mg daily. 2. Atenolol 50 mg daily. 3. Levothyroxine 50 mcg daily. 4. Potassium citrate 15 mEq twice a day. 5. One baby aspirin per day. 6. Oxycodone as needed for pain. ALLERGIES: The patient is allergic to LATEX; SULFA, which give her hives; QUINOLONES, which gives her seizures; NITROFURANTOIN, which gives her hives and breathing problems; and has intolerance to LEVOTHYROXINE. PHYSICAL EXAMINATION GENERAL: Morbidly obese white female and she is legally blind. VITAL SIGNS: Blood pressure 130/80, pulse of 70. LUNGS: Clear. HEART: Regular and rhythmic. No murmurs. ABDOMEN: Obese. No CVA tenderness. EXTREMITIES: Bilateral leg edema and healed skin ulcerations both lower extremities. PLAN: Plan is for cystoscopy, left ureteral stent exchange, possible left ureteroscopy, and laser lithotripsy. I discussed the above plans with the patient and her . The patient's urine cultures will be obtained preoperatively and she will be treated with IV antibiotics depending upon the culture results. [id number]/CPS #: [id number] MTDAmber
[~2018-01-05 05:50] MED LIST changes: +Dexamethasone IV* 4 MG/ML 1 ML (4 MG) IV SLOW PU ONE; -Meropenem(*) 2 GM in NS 0.9% 100 ML* 100 ML IVPB ONE
[2018-01-05] MEDS ORDERED: Famotidine IV* 10 MG/ML 2 ML (20 mg) IV ONE (06:00)
[2018-01-05] MEDS ORDERED: Dexamethasone IV* 4 MG/ML 1 ML (4 MG) IV SLOW PU ONE (06:00)
[2018-01-05] MEDS ORDERED: Buffered Lidocaine 0.9% SYRIN* 5 ML/SYR SYRINGE INTRADERM ONE (06:00)
[2018-01-05] MEDS ORDERED: Famotidine IV* 10 MG/ML 2 ML (20 mg) ONE (06:09)
[2018-01-05] MEDS ORDERED: Dexamethasone IV* 4 MG/ML 1 ML (4 MG) ONE (06:09)
[2018-01-05] MEDS ORDERED: Buffered Lidocaine 0.9% SYRIN* 5 ML/SYR SYRINGE ONE (06:09)
[2018-01-05] MEDS ORDERED: ZOSYN 3.375 GM x ONE DOSE over 30 miuntes IVPB SCH ×2 (07:00)
[2018-01-05] MEDS ORDERED: fentaNYL* 50 MCG/ML 2 ML VIAL (100 MCG VIAL) ONE ×2 (07:03→08:38)
[2018-01-05] MEDS ORDERED: Iohexol 180 (CONTRAST) 10 ML SDV IV ONE (07:18)
[2018-01-05] MEDS ORDERED: Naloxone* 0.4 MG/ML 1 ML VIAL IV PRN (07:24)
[2018-01-05] MEDS ORDERED: Acetaminophen TAB* 325 MG PO PRN (07:24)
[2018-01-05] MEDS ORDERED: DiMENhydriNATE IV* 50 MG/ML VIAL IV PUSH PRN (07:24)
[2018-01-05] MEDS ORDERED: fentaNYL* 50 MCG/ML 2 ML VIAL (100 MCG VIAL) IV PRN (07:24)
[2018-01-05] MEDS ORDERED: Morphine INJ* 2 MG/ML 1 ML SYRINGE (TWO MG - NEW SYRINGE VERSION) IV PRN (07:24)
[2018-01-05] MEDS ORDERED: Ondansetron INJ* 2 MG/ML VIAL IV PRN (07:24)
[2018-01-05] MEDS ORDERED: HYDROcodone/ACETAMIN 5-325 MG* 1 TAB PO PRN (07:24)
[2018-01-05] MEDS ORDERED: Ondansetron INJ* 2 MG/ML VIAL ONE (08:01)
[2018-01-05] MEDS ORDERED: Propofol* 10 MG/ML 20 ML BTL IV PUSH ONE (08:05)
[2018-01-05] MEDS ORDERED: EPHEDrine (Pressors)* 50 MG/ML VIAL ONE (08:05)
[2018-01-05] MEDS ORDERED: Lidocaine 2% PF * 5 ML VIAL ONE (08:05)
[2018-01-05] MEDS ORDERED: HYDROcodone/ACETAMIN 5-325 MG* 1 TAB ONE (08:53)
--- NOTE | 2018-01-05 09:03 | RAD ---
INDICATION: Stent placement COMPARISONS: July 16, 2017 TECHNIQUE: Fluoroscopy was provided for a retrograde pyelogram and stent placement. Total fluoroscopy time is: 0.1 minutes FINDINGS: Contrast is noted within the left renal collecting system. A left ureteral stent is noted. IMPRESSION: FLUOROSCOPY WAS PROVIDED FOR A RETROGRADE PYELOGRAM AND STENT PLACEMENT CPT II Codes: G9500
[2018-01-05 09:19] VITALS: BP 122/98
--- NOTE | 2018-01-05 22:06 | OP ---
DATE OF OPERATION: 01/05/18 - [facility] DATE OF : 47 SURGEON: Dr. Osborn. ANESTHESIOLOGIST: Dr. Suhail Morrison. ANESTHESIA: General. PRE-OP DIAGNOSES: 1. Left ureteral strictures. 2. Left hydronephrosis due to above. 3. Nonobstructing left renal calculus. 4. Status post placement Lt ureteral stent. POST-OP DIAGNOSES: 1. Left ureteral strictures. 2. Left hydronephrosis due to above. 3. Nonobstructing left renal calculus. 4. Status post placement Lt ureteral stent. OPERATIVE PROCEDURE: 1. Cystoscopy. 2. Left retrograde pyelography. 3. Left ureteral stent exchange (black silicone, 8.5 [place], 24 cm). INDICATION FOR PROCEDURE: Mrs. Zhao is a 72-year-old white female who has history of renal calculus disease, and who developed left ureteral strictures after a large left retroperitoneal hematoma that occurred spontaneously while on anticoagulation. The ureteral strictures have persisted in spite of balloon dilatations and the patient has been managed with chronic left ureteral stent drainage The stent was last replaced 6 months ago and has been very well tolerated. The patient now is admitted for left ureteral stent exchange. PATHOLOGY AT CYSTOSCOPY: The distal limb of the stent was seen coming from the left ureteral orifice. There was calcium deposits forming a 1 cm stone within the distal loop of the stent. There were changes of cystitis in the bladder wall. Upon left retrograde pyelography, there was only mild left hydronephrosis. The urine from the left kidney looked clear. DESCRIPTION OF PROCEDURE: After successful general anesthesia with the patient in the lithotomy position and after proper scrubbing and draping, cystoscopy was performed. The bladder was inspected and the above findings were noted. The distal limb of the stent was pulled to the level of the urethral meatus. A flexible tip guidewire could not be introduced inside the lumen of the stent because it was occluded. The stent was then removed. The cystoscope was reintroduced inside the bladder and the flexible tip guidewire was passed without difficulty into the left orifice and coiled in the renal pelvis. A size 5-[place] open-ended catheter was fed on top of the guidewire and positioned in the renal pelvis. The kidney was drained and the urine looked clear. Contrast was then injected delineating a slightly dilated collecting system. A black silicone stent, 8.5 [place], 24 cm long was then placed, with the proximal end coiling in renal pelvis and the distal end coiling inside the bladder. There was good drainage of contrast from the kidney. There was a 1 cm stone inside the bladder that had formed within the coil of the stent. That stone was broken into several pieces and the fragments were evacuated. The patient tolerated the procedure well and left the operating room in good condition. [id number]/[facility] #: [id number] [facility] HOSPITALAmber
== END 2018-01-05 09:33 | disposition home or self-care (01) ==
LOC: OR 05:50
PROVIDERS: ATTEND Urology
DX: N13.1 Hydronephrosis with ureteral stricture, not elsewhere classified (principal); N20.0 Calculus of kidney; E11.9 Type 2 diabetes mellitus without complications; E66.01 Morbid (severe) obesity due to excess calories; H54.8 Legal blindness, as defined in USA; E03.9 Hypothyroidism, unspecified; Z79.01 Long term (current) use of anticoagulants; I10 Essential (primary) hypertension; I48.91 Unspecified atrial fibrillation; Z86.711 Personal history of pulmonary embolism; I25.10 Atherosclerotic heart disease of native coronary artery without angina pectoris; F41.8 Other specified anxiety disorders; G25.1 Drug-induced tremor
CPT/HCPCS: 74420; C1876; J1100; J2405; J2543; J2704; J3010

== ENCOUNTER 2018-02-07 18:56 | Inpatient (IN) | payer MEDICARE, BC ==
[2018-02-07 19:50] LABS: ABS Basophils 0.1 10^3/ul (0-0.2); ABS Eosinophils 0.1 10^3/ul (0-0.6); ABS Lymphocytes 1.1 10^3/ul (1.0-4.8); ABS Monocytes 0.8 10^3/ul (0-0.8); ABS Neutrophils 10.2 10^3/ul (1.5-7.7); ABS Nucleated RBC 0 10^3/ul; Eosinophil % 0.6 % (0-6); Hematocrit 44 % (35-47); Hemoglobin 14.4 g/dl (12.0-16.0); Mean Corpuscular HGB Conc 33 g/dl (31-36); Mean Corpuscular Hemoglobin 30 pg (27-31); Mean Corpuscular Volume 90 fL (80-97); Mean Platelet Volume 8.4 fL (7.4-10.4); Nucleated Red Blood Cells % 0.1; Platelet Count 244 10^3/ul (150-450); Red Blood Count 4.86 10^6/ul (4.00-5.40); Red Cell Distribution Width 15 % (10.5-15); White Blood Count 12.3 10^3/ul (3.5-10.8)
[2018-02-07] MEDS ORDERED: NS 0.9% 1000 ML* 1,000 ML IV ONE (19:58)
[2018-02-07] MEDS ORDERED: fentaNYL* 50 MCG/ML 2 ML VIAL (100 MCG VIAL) IV SLOW PU ONE (19:59)
[2018-02-07 20:00] LABS: INR 1.26 (0.77-1.02)
[2018-02-07] MEDS ORDERED: Ondansetron INJ* 2 MG/ML VIAL IV ONE (20:00)
--- NOTE | 2018-02-07 20:00 | ED ---
Abdominal Pain/Female - HPI Summary HPI Summary: This patient is a 72 year old F presenting to [facility] with a chief complaint of fluctuating left flank pain since 16:00 today. The patient rates the pain 6/10 in severity. Patient reports vomiting and nausea. Patient denies hematuria. Patients doctor is Agustin Osborn MD. She has a stent in her left side. 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 Patient has a PMHx of kidney stones, UTI, hearing impairment, and being legally blind. She has a PSHx of a shoulder replacement and has 7 screws in her right elbow. - History of Current Complaint Chief Complaint: EDFlankPain Stated Complaint: FLANK PAIN LT SIDE Time Seen by Provider: 02/07/18 19:50 Hx Obtained From: Patient Hx Last Menstrual Period: N/A Onset/Duration: Sudden Onset, Lasting Hours - Since 16:00 today Severity Currently: Moderate Pain Intensity: 6 Pain Scale Used: 0-10 Numeric Location: Flank - dLeft flank pain Associated Signs and Symptoms: Positive: Nausea, Vomiting. Negative: Urinary Symptoms - Denies hematuria Allergies/Adverse Reactions: Allergies Allergy/AdvReac Type Severity Reaction Status Date / Time latex Allergy Itching Verified 02/07/18 19:07 levofloxacin Allergy Anaphylatic Verified 02/07/18 19:07 Shock levothyroxine Allergy Rash And Verified 02/07/18 19:07 Itching nitrofurantoin Allergy Hives/Diff. Verified 02/07/18 19:07 Breathing/I tching Sulfa (Sulfonamide Allergy Hives Verified 02/07/18 19:07 Antibiotics) PMH/Surg Hx/FS Hx/Imm Hx Endocrine/Hematology History: Reports: Hx Diabetes - borderline DM, Hx Thyroid Disease - hypothyroidism Cardiovascular History: Reports: Hx Coronary Artery Disease, Hx Deep Vein Thrombosis, Hx Embolism - multiple PEs, Hx Hypercholesterolemia, Hx Hypertension , Hx Peripheral Vascular Disease, Other Cardiovascular Problems/Disorders - cardiac cath 2011 AND HIGH CHOLESTEROL AND A-FIB Denies: Hx Congestive Heart Failure Respiratory History: Reports: Hx Pulmonary Embolism - POST OP AFTER SHOULDER REPLACEMENT 2012, 2014 Denies: Hx Asthma, Hx Chronic Obstructive Pulmonary Disease (COPD) GI History: Denies: Hx Gall Bladder Disease - gall bladder removed, Hx Ulcer, Other GI Disorders History: Reports: Hx Kidney Infection, Hx Kidney Stones - left, Hx Renal Disease - LT URETERAL STRICTURE. LT STENT, Other Problems/Disorders - Kidney stones July 2011 Denies: Hx Dialysis Musculoskeletal History: Reports: Hx Arthritis - GENERAL, Other Musculoskeletal History - Bilateral knee replacements, R shoulder replacement, fractured R elbow Sensory History: Reports: Hx Cataracts - HAS HAD SURGERY, Hx Contacts or Glasses , Hx Glaucoma, Hx Legally Blind, Hx Vision Problem - Pt is legally blind, Hx Hearing Aid - bilat, Hx Hearing Problem, Other Sensory Impairments Opthamlomology History: Reports: Hx Cataracts - HAS HAD SURGERY, Hx Contacts or Glasses, Hx Glaucoma, Hx Legally Blind, Hx Vision Problem - Pt is legally blind , Other Sensory Impairments Neurological History: Reports: Hx Migraine - Hx of none recently, Hx Seizures - Hx of, none recently, Other Neuro Impairments/Disorders - Hx seizures, none recently Psychiatric History: Reports: Hx Autism, Hx Depression Denies: Hx Anxiety - Cancer History Hx Chemotherapy: No Hx Radiation Therapy: No - Surgical History Surgery Procedure, Year, and Place: Hysterectomy September 2014, 1970 R eye cataract removed, 1989 L eye cataract removed, bilateral knee replacements, R shoulder replacement, 2011 cholecystectomy, plate/screws in R elbow, kidney stone treatment x 3 august 09 3 kidney stones remover and litho. done on others bilaterly. Hx Anesthesia Reactions: No Infectious Disease History: No Infectious Disease History: Denies: Hx Hepatitis, Hx Human Immunodeficiency Virus (HIV), Traveled Outside the [place] in Last 30 Days Comment Only: History Other Infectious Disease - kidney infection - Family History Known Family History: Positive: Cardiac Disease, Hypertension - Social History Alcohol Use: None Alcohol Amount: 3-4 PER YEAR Hx Substance Use: No Substance Use Type: Reports: None Hx Tobacco Use: No Smoking Status (MU): Never Smoked Tobacco Have You Smoked in the Last Year: No Review of Systems Positive: Abdominal Pain - Left flank pain, Vomiting, Nausea Negative: hematuria All Other Systems Reviewed And Are Negative: Yes Physical Exam - Summary Physical Exam Summary: GENERAL: Patient is a well-developed and nourished __(F)__ who is lying comfortable in the stretcher. Patient is not in any acute respiratory distress. HEAD AND FACE: Normocephalic EYES: PERRLA, EOMI x 2. EARS: Hearing grossly intact. MOUTH: Oropharynx within normal limits. NECK: Supple, trachea is midline, no adenopathy, no JVD, no carotid bruit. CHEST: Symmetric, no tenderness at palpation LUNGS: Clear to auscultation bilaterally. No wheezing or crackles. CVS: Regular rate and rhythm, S1 and S2 present, no murmurs or gallops appreciated. ABDOMEN: Soft, left flank area tenderness to palpation. Bowel sounds are normal. No abdominal abnormal pulsations. EXTREMITIES: Full ROM in all major joints, no edema, no cyanosis or clubbing. NEURO: Alert and oriented x 3. No acute neurological deficits. Speech is normal and follows commands. SKIN: Dry and warm Triage Information Reviewed: Yes Vital Signs On Initial Exam: Initial Vitals Temp Pulse Resp BP Pulse Ox 98.2 F 81 19 163/80 96 02/07/18 19:03 02/07/18 19:03 02/07/18 19:03 02/07/18 19:03 02/07/18 19:03 Vital Signs Reviewed: Yes Diagnostics - Vital Signs Vital Signs Temp Pulse Resp BP Pulse Ox 02/07/18 19:03 98.2 F 81 19 163/80 96 - Laboratory Lab Results: Lab Results 02/07/18 Range/Units 19:40 WBC 12.3 H (3.5-10.8) 10^3/ul RBC 4.86 (4.00-5.40) 10^6/ul Hgb 14.4 (12.0-16.0) g/dl Hct 44 (35-47) % MCV 90 (80-97) fL MCH 30 (27-31) pg MCHC 33 (31-36) g/dl RDW 15 (10.5-15) % Plt Count 244 (150-450) 10^3/ul MPV 8.4 (7.4-10.4) fL Neut % (Auto) 82.9 (38-83) % Lymph % (Auto) 9.0 L (25-47) % Jack % (Auto) 6.6 (0-7) % Eos % (Auto) 0.6 (0-6) % Baso % (Auto) 0.9 (0-2) % Absolute Neuts (auto) 10.2 H (1.5-7.7) 10^3/ul Absolute Lymphs (auto) 1.1 (1.0-4.8) 10^3/ul Absolute Monos (auto) 0.8 (0-0.8) 10^3/ul Absolute Eos (auto) 0.1 (0-0.6) 10^3/ul Absolute Basos (auto) 0.1 (0-0.2) 10^3/ul Absolute Nucleated RBC 0 10^3/ul Nucleated RBC % 0.1 Result Diagrams: 02/07/18 19:40 02/07/18 19:40 Lab Statement: Any lab studies that have been ordered have been reviewed, and results considered in the medical decision making process. - CT Abdomen/Pelvis CT CT Interpretation Completed By: Radiologist - 23:27. 1. 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 2. Left nonobstructing renal calculi. ED Physician has reviewed this imaging report. Abdominal Pain Fem Course/Dx - Course Course Of Treatment: This patient is a 72 year old F presenting to [facility] with a chief complaint of fluctuating left flank pain since 16:00 today. The abdomen/ pelvis CT is remarkable for 1. 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 2. Left nonobstructing renal calculi. Lab workup was remarkable for WBC = 12.3 H, Lymph % (Auto) = 9.0 L, and Absolute Neuts (auto) = 10.2 H. Patient was admitted with a dx of UTI. Case discussed with hospitalist , Dr. Azar. I discussed results with patient. The patient agrees with this plan. - Diagnoses Provider Diagnoses: UTI (urinary tract infection) - Provider Notifications Discussed Care Of Patient With: Ashley Azar - Hospitalist Time Discussed With Above Provider: 23:39 Instructed by Provider To: Admit As Inpatient Discharge - Sign-Out/Discharge Documenting (check all that apply): Patient Departure - Admit All imaging exams completed and their final reports reviewed: Yes - Discharge Plan Condition: Stable Disposition: ADMITTED TO [facility] - Billing Disposition and Condition Condition: STABLE Disposition: Admitted to [facility] - Attestation Statements Document Initiated by Scribe: Yes Documenting Scribe: Dominic Mantilla Provider For Whom Scribe is Documenting (Include Credential): Buster Sanchez MD Scribe Attestation: Dominic Maki, scribed for Buster Sanchez MD on 02/08/18 at 0524. Scribe Documentation Reviewed: Yes Provider Attestation: The documentation as recorded by the scribe, Dominic Mantilla accurately reflects the service I personally performed and the decisions made by me, Buster Sanchez MD
[2018-02-07 20:06] LABS: EGFR Non-African American 36.5 (>60)
[2018-02-07] MEDS ORDERED: Iodixanol* (CONTRAST) 320 MG/ML 100 ML SDV IV ONE (21:07)
[2018-02-07 22:40] LABS: Urine Appearance Cloudy; Urine Blood 2+ (Negative); Urine Color Yellow; Urine Ketones Negative (Negative); Urine Protein 2+(100 mg/dL) (Negative); Urine Red Blood Cell 3+(>10/hpf) (Absent); Urine Specific Gravity 1.016 (1.010-1.030); Urine Urobilinogen Negative (Negative); Urine White Blood Cell 3+(>20/hpf) (Absent)
--- NOTE | 2018-02-07 23:27 | RAD ---
EXAM: CT Abdomen and Pelvis Without Intravenous Contrast EXAM DATE/TIME: 02/07/2018 10:31 PM CLINICAL HISTORY: 72 years old, female; Pain; Abdominal pain; Flank; Left; Additional info: Left flank pain TECHNIQUE: Axial computed tomography images of the abdomen and pelvis without intravenous contrast. All CT scans at this facility use at least one of these dose optimization techniques: automated exposure control; mA and/or kV adjustment per patient size (includes targeted exams where dose is matched to clinical indication); or iterative reconstruction. COMPARISON: A/P WO CT ABD/PEL W/O 03/13/2017 9:41 AM FINDINGS: Lower thorax: No acute findings. ABDOMEN: Liver: Normal. No mass. Gallbladder and bile ducts: Surgically absent gallbladder. Pancreas: Normal. No ductal dilation. Spleen: Normal. No splenomegaly. Adrenals: Normal. No mass. Kidneys and ureters: Moderate left perinephric stranding with an indwelling double-J left ureteral stent which is not seen previously. Persistent moderate left pelvocaliectasis without ureterectasis. Several nonobstructing calculi in the left kidney largest in the renal pelvis dependently measures 0.3 cm. Right extrarenal pelvis. No right renal calculi. Stomach and bowel: Incompletely distended grossly normal stomach. Normal caliber small bowel. No colonic masses or segmental wall thickening. Appendix: Normal caliber appendix without wall thickening or adjacent inflammation. PELVIS: Bladder: The bladder is decompressed but otherwise normal. Reproductive: Uterus and ovaries are surgically absent. ABDOMEN and PELVIS: Intraperitoneal space: Normal. No free air. No significant fluid collection. Bones/joints: The spine demonstrates mild degenerative changes at multiple levels. No fractures. No suspicious bone lesions. Soft tissues: Normal. No hernia. Vasculature: There is mild atherosclerotic calcification of the coronary arteries. The aorta demonstrates mild atherosclerotic calcification. Lymph nodes: Normal. No enlarged lymph nodes. IMPRESSION: 1. 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 2. Left nonobstructing renal calculi. To contact [facility] with a general question: [facility] - [phone] For direct physician to physician contact: Physician Hotline - [phone] [facility] [place] ([facility] Facility ID #[id number])
[2018-02-07] MEDS ORDERED: cefTRIAXone(*) 1 GM in NS 0.9% 50 ML* 50 ML IVPB ONE (23:39)
[2018-02-07] MEDS ORDERED: Vancomycin(*) 750 MG in NS 0.9% 250 ML* 250 ML IVPB SCH (23:45)
[2018-02-07] MEDS ORDERED: Vancomycin per Pharmacy* NOTE FOLLOW UP SCH (23:45)
[2018-02-07] MEDS ORDERED: Ondansetron INJ* 2 MG/ML VIAL IV PRN (23:55)
[2018-02-08] MEDS ORDERED: Morphine VIAL* 4 MG/ML VIAL (1 ml vial) IV ONE (01:12)
[2018-02-08] MEDS: Morphine VIAL* 4 MG/ML VIAL (1 ml vial) IV PRN (01:15)
[2018-02-08] MEDS: NS 0.9% 1000 ML* 1,000 ML IV SCH ×2 (01:25→19:39)
[2018-02-08] MEDS ORDERED: Vancomycin(*) 2,000 MG in NS 0.9% 500 ML* 500 ML IVPB ONE (01:30)
[2018-02-08] MEDS: Meropenem 1 GM PREMIX(*) 1 GM/50 ML BAG IV SCH ×3 (01:45→17:13)
[2018-02-08] MEDS: Acetaminophen TAB* 325 MG PO PRN ×2 (04:51→12:34)
[2018-02-08] MEDS: SYNTHROID 50 MCG PO SCH (05:08)
[2018-02-08 06:24] LABS: ABS Basophils 0 10^3/ul (0-0.2); ABS Eosinophils 0 10^3/ul (0-0.6); ABS Monocytes 1.1 10^3/ul (0-0.8); ABS Neutrophils 9.4 10^3/ul (1.5-7.7); ABS Nucleated RBC 0 10^3/ul; Eosinophil % 0.4 % (0-6); Hematocrit 40 % (35-47); Hemoglobin 13.1 g/dl (12.0-16.0); Lymphocyte % 8.9 % (25-47); Mean Corpuscular HGB Conc 33 g/dl (31-36); Mean Corpuscular Hemoglobin 29 pg (27-31); Mean Corpuscular Volume 89 fL (80-97); Mean Platelet Volume 8.8 fL (7.4-10.4); Nucleated Red Blood Cells % 0; Platelet Count 212 10^3/ul (150-450); Red Blood Count 4.45 10^6/ul (4.00-5.40); Red Cell Distribution Width 16 % (10.5-15); White Blood Count 11.6 10^3/ul (3.5-10.8)
[2018-02-08 06:33] LABS: INR 1.38 (0.77-1.02)
[2018-02-08 06:45] LABS: EGFR Non-African American 40.7 (>60)
--- NOTE | 2018-02-08 07:06 | HP ---
CC: Aby Balbuena MD; Agustin Osborn MD; Ronaldo Weathers MD; Popeye Rojo MD * HISTORY AND PHYSICAL: DATE OF ADMISSION: 02/07/18 PRIMARY CARE PROVIDER: Popeye Rojo MD CHIEF COMPLAINT: Left flank pain. HISTORY OF PRESENT ILLNESS: Christel Zhao is a 72-year-old, morbidly obese, legally blind female with history of nephrolithiasis status post left ureteral stent placement by Dr. Osborn at the beginning of January 2018, who presented to the hospital, complaining of less than 12 hours of left flank pain. The patient also had nausea and vomiting. She denies any fevers. The CT of the abdomen showed possible left ureteral stent placement with possibility of left ureteral obstruction. The patient's urinalysis is also suggestive of UTI. She is going to be admitted with a diagnosis of left-sided pyelonephritis and possibility of left ureteropelvic junction obstruction. PAST MEDICAL HISTORY: 1. The patient is "borderline diabetic", diet controlled. 2. History of morbid obesity. 3. History of migraines. 4. History of mitral valve regurgitation. 5. Hypertension. 6. Carotid disease status post cardiac catheterization in June 2012 and it showed mild irregularities of LAD, 80% to 90% disease of the left circ and distal totally occluded 100% for medical treatment. RCA was not dominant. 7. History of dyslipidemia. 8. History of patient being legally blind since childhood. 9. Depression. 10. History of nephrolithiasis status post stent placement in the past by Dr. Osborn. 11. History of PE and DVT, on Coumadin. 12. Hypothyroidism. 13. Glaucoma. 14. Chronic kidney disease stage 3 due to diabetes. 15. History of retroperitoneal bleed and retroperitoneal fibrosis. 16. Status post cholecystectomy. 17. Status post hysterectomy. 18. Bilateral knee replacements. 19. Right elbow ORIF in the past. 20. History of right total shoulder arthroplasty. 21. Cataract surgery. MEDICATIONS AT HOME: Include: 1. Multivitamin 1 tablet daily. 2. Atenolol 50 mg daily. 3. Warfarin 10 mg at bedtime. 4. Fluoxetine 40 mg daily. 5. Potassium citrate 15 mEq b.i.d. 6. Levothyroxine 50 mcg daily. ALLERGIES: Are multiple and include LATEX, LEVAQUIN, LEVOTHYROXINE. She can take Synthroid. Also NITROFURANTOIN and SULFA. FAMILY HISTORY: Mother with history of glaucoma and dementia. Father with history of diabetes and leukemia. SOCIAL HISTORY: The patient denies any tobacco, alcohol or drug use. She lives with her , who is her surrogate. She ambulates with a cane at a baseline and she is fairly independent with activities of daily living. REVIEW OF SYSTEMS: Please see history of present illness. In addition to the above mentioned, the patient stated that she has chronic lower extremity edema and she wears compression stockings. All the remaining 12 systems were reviewed with the patient and were otherwise negative. PHYSICAL EXAMINATION GENERAL: The patient is a very pleasant 72-year-old female, whose BMI is 53. The patient is in no acute distress. Alert, awake, and oriented x3. VITAL SIGNS: Blood pressure of 149/80, heart rate of 84 and regular, respiratory rate of 20, oxygen saturation 96% on room air, temperature of 98.2. HEENT: Head: Atraumatic, normocephalic. Eyes: The right pupil is round and minimally reactive to light. The left pupil is difficult to visualize underneath a cloudy cornea. Oropharynx is clear. Mucosa moist. NECK: Supple. No JVD. No bruit bilaterally. RESPIRATORY: Clear to auscultation bilaterally. CARDIOVASCULAR: Regular rate and rhythm. No murmur. ABDOMEN: Soft, nontender. Bowel sounds present in all 4 quadrants. BACK: On evaluation of the back, the patient has left CVA tenderness on palpation. EXTREMITIES: There is +1 pitting pedal edema. Pulses are +2 bilaterally. There is no clubbing or cyanosis. The patient has chronic venous stasis dermatitis and erythema of bilateral lower extremities from the level of above bilateral ankles to approximately 10 cm below the knees. There are no open areas noted on the skin. NEUROLOGIC EVALUATION: The patient is legally blind. Cranial nerves II through XII are otherwise grossly intact. Motor strength is 5/5 bilaterally. The patient is grossly intact. PSYCHIATRIC EVALUATION: Oriented x3 with no evidence of anxiety or depression. DIAGNOSTIC STUDIES/LAB DATA: Laboratory data show white blood cell count of 12.3, hemoglobin of 14.4, hematocrit of 44, and platelets of 244. INR of 1.26. Sodium of 139, potassium 4.4, chloride 104, carbon dioxide 28, BUN 36, creatinine 1.42. Liver function tests unremarkable. Lactic acid 2.2. Repeated lactic acid was down to 2. C-reactive protein was 9.5. Lipase of 32. Urinalysis positive for +3 esterase, +3 wbc's, +3 rbc's, +2 blood, negative for nitrates, absent bacteria. Abdomen and pelvis CT obtained in the emergency room, impression, "UPJ obstruction due to indwelling double J ureteral stent. Left nonobstructive renal calculi". ASSESSMENT AND PLAN: 1. The patient is a 72-year-old female with history of status post ureteral stenting a month ago, who presented with abnormal urinalysis and left flank pain. The patient is going to be admitted with a diagnosis of pyelonephritis. Please note that the patient has history of urinary tract infection, positive for ESBL proteus-mirabilis and enterococcal faecalis with last urine being positive for those micro organisms on 11/28/17. Due to that, the patient is going to be placed on meropenem and vancomycin. Please also note that the patient has multiple allergies to multiple antibiotics making other antibiotic choice difficult. I discussed the case with Dr. Osborn who will see the patient in the morning in regards to the need of exchanging the stent. For the time being, the patient is going to be placed on clear liquid diet. 2. In regards to patient's hypertension, atenolol is going to be continued and hypertension is controlled. 3. The patient has chronic kidney disease with creatinine that is currently at baseline. 4. For her hypothyroidism, her Synthroid is going to be continued. 5. In regards to patient's history of DVT and PE, the patient is on Coumadin and her INR is subtherapeutic. I will hold patient's Coumadin due to that that she may need to go to the OR in the morning. I will place the patient on sequential compression devices and I will not institute Lovenox for anticoagulation due to that the patient may be going to the OR in another 6 to 7 hours. If that is not going to be the case, she should be restarted on bridging with Lovenox, then to Coumadin. 6. The patient's code status is full and her surrogate is her . TIME SPENT: Approximately 65 minutes was spent on admission of this patient, more than half that time was spent [id number] with the patient during the interview and physical exam. [id number]/[facility] #: [id number] ANTHONY
[2018-02-08] MEDS: Potassium Citrate TAB (NF) 15 MEQ TABLET.ER PO SCH ×2 (08:20→21:10)
[2018-02-08] MEDS: Atenolol TAB* 50 MG PO SCH (08:21)
[2018-02-08] MEDS: Docusate CAP* 100 MG PO SCH ×2 (08:21→08:22)
[2018-02-08] MEDS: oxyCODONE/Acetamin 5/325 MG* TAB PO PRN ×2 (08:21→19:23)
[2018-02-08] MEDS ORDERED: Docusate CAP* 100 MG PO PRN (08:27)
[2018-02-08] MEDS ORDERED: Levothyroxine TAB* 25 MCG TAB PO SCH (09:00)
[2018-02-08] MEDS ORDERED: Vancomycin(*) 1,000 MG in NS 0.9% 250 ML* 250 ML IVPB SCH (10:30)
[2018-02-08] MEDS: Enoxaparin(*) 150 MG/ML 1 ML SYRINGE SUBCUT SCH ×2 (12:32→22:31)
--- NOTE | 2018-02-08 12:38 | PN ---
Subjective Date of Service: 02/08/18 Interval History: Left flank pain comes in waves but never gone. Ramps up from 4 to 6. Diarrhea started at home and worse here (4 since 4am->10am). Started mushy then watery now mix of both. UCx with Ecoli. No chest pain, SOB, abdominal pain. does have a ROBB. Objective Active Medications: Acetaminophen (Tylenol Tab*) 650 mg PO Q4H PRN PRN Reason: FEVER/PAIN Last Admin: 02/08/18 04:51 Dose: 650 mg Atenolol (Tenormin Tab*) 50 mg PO QAM [facility] Last Admin: 02/08/18 08:21 Dose: 50 mg Docusate Sodium (Colace Cap*) 100 mg PO BID PRN PRN Reason: CONSTIPATION Enoxaparin Sodium (Lovenox(*)) 150 mg SUBCUT Q12H [facility] Fluoxetine HCl (Prozac Cap*) 40 mg PO BEDTIME [facility] Meropenem (Merrem 1 Gm Premix(*)) 1 gm in 50 mls @ 100 mls/hr IV Q8H [facility] Last Admin: 02/08/18 09:28 Dose: 100 mls/hr Sodium Chloride (Ns 0.9% 1000 Ml*) 1,000 mls @ 75 mls/hr IV PER RATE [facility] Last Admin: 02/08/18 01:25 EST Dose: 75 mls/hr Morphine Sulfate (Morphine Vial*) 1 mg IV Q4H PRN PRN Reason: PAIN - MILD Last Admin: 02/08/18 01:15 EDT Dose: 1 mg Synthroid 50 Mcg - (Brand Only!!!) 1 dose PO 0600 [facility] Last Admin: 02/08/18 05:08 Dose: Not Given Ondansetron HCl (Zofran Inj*) 4 mg IV Q4H PRN PRN Reason: NAUSEA/VOMITING Oxycodone/Acetaminophen (Percocet 5/325 Tab*) 1 tab PO Q4H PRN PRN Reason: Pain Last Admin: 02/08/18 08:21 Dose: 1 tab Potassium Citrate (Potassium Citrate Tab (Nf)) 15 meq PO BID [facility] Last Admin: 02/08/18 08:20 Dose: Not Given Warfarin Sodium (Coumadin Tab(*)) 5 mg PO 1700 [facility]; Protocol Vital Signs - 8 hr 02/08/18 02/08/18 02/08/18 05:04 07:28 07:47 Temperature 98.2 F 97.6 F Pulse Rate 89 83 Respiratory 16 16 17 Rate Blood Pressure 124/58 127/65 (mmHg) O2 Sat by Pulse 95 95 Oximetry 02/08/18 02/08/18 02/08/18 08:21 10:54 11:12 Temperature 97.7 F Pulse Rate 76 Respiratory 18 18 17 Rate Blood Pressure 111/50 (mmHg) O2 Sat by Pulse 95 Oximetry Oxygen Devices in Use Now: None Appearance: NAD Eyes: No Scleral Icterus, PERRLA Ears/Nose/Mouth/Throat: NL Teeth, Lips, Gums, Mucous Membranes Moist Neck: NL Appearance and Movements; NL JVP Respiratory: Symmetrical Chest Expansion and Respiratory Effort, Clear to Auscultation Cardiovascular: NL Sounds; No Murmurs; No JVD, RRR Abdominal: - - soft, nontender, obese. no rebound or guarding. left CVA tenderness. Extremities: No Edema Skin: No Rash or Ulcers, No Nodules or Sclerosis Neurological: Alert and Oriented x 3, NL Sensation, NL Muscle Strength and Tone Nutrition: Taking PO's Result Diagrams: 02/08/18 05:15 02/08/18 05:15 Additional Lab and Data: Laboratory Results - last 24 hr 02/07/18 02/07/18 02/07/18 19:40 19:40 19:40 WBC 12.3 H RBC 4.86 Hgb 14.4 Hct 44 MCV 90 MCH 30 MCHC 33 RDW 15 Plt Count 244 MPV 8.4 Neut % (Auto) 82.9 Lymph % (Auto) 9.0 L [place] % (Auto) 6.6 Eos % (Auto) 0.6 Baso % (Auto) 0.9 Absolute Neuts (auto) 10.2 H Absolute Lymphs (auto) 1.1 Absolute Monos (auto) 0.8 Absolute Eos (auto) 0.1 Absolute Basos (auto) 0.1 Absolute Nucleated RBC 0 Nucleated RBC % 0.1 INR (Anticoag Therapy) 1.26 H APTT 31.7 Sodium 139 Potassium 4.4 Chloride 104 Carbon Dioxide 28 Anion Gap 7 BUN 36 H Creatinine 1.42 H Est GFR ( Amer) 44.1 Est GFR (Non-Af Amer) 36.5 BUN/Creatinine Ratio 25.4 H Glucose 156 H Lactic Acid Calcium 9.6 Magnesium 2.1 Total Bilirubin 0.30 AST 18 ALT 18 Alkaline Phosphatase 67 C-Reactive Protein 9.56 H Total Protein 7.4 Albumin 3.8 Globulin 3.6 Albumin/Globulin Ratio 1.1 Lipase 32 Urine Color Urine Appearance Urine pH Ur Specific [place] Urine Protein Urine Ketones Urine Blood Urine Nitrate Urine Bilirubin Urine Urobilinogen Ur Leukocyte Esterase Urine WBC (Auto) Urine RBC (Auto) Ur Squamous Epith Cells Urine Bacteria Urine Glucose 02/07/18 02/07/18 02/08/18 19:40 22:20 00:03 WBC RBC Hgb Hct MCV MCH MCHC RDW Plt Count MPV Neut % (Auto) Lymph % (Auto) [place] % (Auto) Eos % (Auto) Baso % (Auto) Absolute Neuts (auto) Absolute Lymphs (auto) Absolute Monos (auto) Absolute Eos (auto) Absolute Basos (auto) Absolute Nucleated RBC Nucleated RBC % INR (Anticoag Therapy) APTT Sodium Potassium Chloride Carbon Dioxide Anion Gap BUN Creatinine Est GFR ( Amer) Est GFR (Non-Af Amer) BUN/Creatinine Ratio Glucose Lactic Acid 2.2 H* 2.0 Calcium Magnesium Total Bilirubin AST ALT Alkaline Phosphatase C-Reactive Protein Total Protein Albumin Globulin Albumin/Globulin Ratio Lipase Urine Color Yellow Urine Appearance Cloudy Urine pH 6.0 Ur Specific [place] 1.016 Urine Protein 2+(100 mg/dl) A Urine Ketones Negative Urine Blood 2+ A Urine Nitrate Negative Urine Bilirubin Negative Urine Urobilinogen Negative Ur Leukocyte Esterase 3+ A Urine WBC (Auto) 3+(>20/hpf) A Urine RBC (Auto) 3+(>10/hpf) A Ur Squamous Epith Cells Present A Urine Bacteria Absent Urine Glucose Negative 02/08/18 02/08/18 02/08/18 05:15 05:15 05:15 WBC 11.6 H RBC 4.45 Hgb 13.1 Hct 40 MCV 89 MCH 29 MCHC 33 RDW 16 H Plt Count 212 MPV 8.8 Neut % (Auto) 81.2 Lymph % (Auto) 8.9 L [place] % (Auto) 9.3 H Eos % (Auto) 0.4 Baso % (Auto) 0.2 Absolute Neuts (auto) 9.4 H Absolute Lymphs (auto) 1.0 Absolute Monos (auto) 1.1 H Absolute Eos (auto) 0 Absolute Basos (auto) 0 Absolute Nucleated RBC 0 Nucleated RBC % 0 INR (Anticoag Therapy) 1.38 H APTT Sodium 137 Potassium 4.3 Chloride 106 Carbon Dioxide 26 Anion Gap 5 BUN 31 H Creatinine 1.29 H Est GFR ( Amer) 49.3 Est GFR (Non-Af Amer) 40.7 BUN/Creatinine Ratio 24.0 H Glucose 165 H Lactic Acid Calcium 8.7 Magnesium Total Bilirubin AST ALT Alkaline Phosphatase C-Reactive Protein Total Protein Albumin Globulin Albumin/Globulin Ratio Lipase Urine Color Urine Appearance Urine pH Ur Specific [place] Urine Protein Urine Ketones Urine Blood Urine Nitrate Urine Bilirubin Urine Urobilinogen Ur Leukocyte Esterase Urine WBC (Auto) Urine RBC (Auto) Ur Squamous Epith Cells Urine Bacteria Urine Glucose Microbiology and Other Data: Microbiology 02/07/18 22:20 Urine Urine Culture - Preliminary Escherichia Coli Assess/Plan/Problems-Billing Assessment: 72 yo female PMH HTN, morbid obesity, legally blind, depression, borderline DM, PE/DVT on coumadin, nephrolithiasis with recurrent left ureter stents (last replaced 01/05/18) presenting with left flank pain, N/V. Ecoli UTI. Planned stent exchange on 02/[address] Osborn. On Meropenem with Hx of ESBL proteus mirabilis. - Patient Problems (1) Obstructive uropathy Current Visit: No Status: Acute Code(s): N13.9 - OBSTRUCTIVE AND REFLUX UROPATHY, UNSPECIFIED SNOMED Code(s): 5548536 Comment: Discussed case with urology Dr. Osborn will perform cystoscopy on 02/11 to try to address 2 small nonobstructing stones (CT a/p read as UPJ obstruction due to the double J stent which was placed 01/05/18. Ucx has grown Ecoli, speciation pending. Has hx of ESBL proteus. Currently on meropenem and vanc(for hx of E faecalis). Stopping vanc. Will continue loan for now but hope to go to [facility] soon. (2) Pyelonephritis Current Visit: No Status: Acute Code(s): N12 - TUBULO-INTERSTITIAL NEPHRITIS , NOT SPCF ACUTE OR CHRONIC SNOMED Code(s): 37577375 Comment: with left flank pain and CVA tenderness. No fevers. resolved leukocytosis. plan as above. (3) History of pulmonary embolus (PE) Current Visit: No Status: Chronic Code(s): Z86.711 - PERSONAL HISTORY OF PULMONARY EMBOLISM SNOMED Code(s): 389347798 Comment: Hx of PE in 2014 and 2012(large burden b/l) on coumadin but subtherapeutic on 10mg warfarin daily. Dr. Osborn would prefer INR be below 1.5-1.6 during cytscopy though not absolute contraindication. Therapuetic lovenox started 1mg/kg q12. Spoke with pharmacy to confirm dosing given her morbid obesity and CKD. CrCl currently 68. Will continue coumadin at 5mg daily INR daily. (4) UTI (urinary tract infection) Current Visit: No Status: Acute Comment: UCx growing Ecoli. plan as above. f /u sensitivities. (5) A-fib Current Visit: No Status: Chronic Priority: High Code(s): I48.91 - UNSPECIFIED ATRIAL FIBRILLATION SNOMED Code(s): 81354042 Comment: Had Afib 2017 during sepsis. Already on coumadin and now lovenox bridge for Hx of PE. Currently NSR (6) CAD (coronary artery disease) Current Visit: No Status: Chronic Code(s): I25.10 - ATHSCL HEART DISEASE OF [place] CORONARY ARTERY W/O ANG PCTRS SNOMED Code(s): 33054071 Comment: Hx of LHC at [place] w/o stenting. Is no longer on betablocker, ASA or statin (7) CKD (chronic kidney disease) Current Visit: No Status: Chronic Code(s): N18.9 - CHRONIC KIDNEY DISEASE, UNSPECIFIED SNOMED Code(s): 289846455 Comment: - Stage 3 - At baseline (8) Depression Current Visit: No Status: Chronic Code(s): F32.9 - MAJOR DEPRESSIVE DISORDER , SINGLE EPISODE, UNSPECIFIED SNOMED Code(s): 16285387 Comment: - Stable - Continue prozac (9) Diabetes Current Visit: No Status: Chronic Code(s): E11.9 - TYPE 2 DIABETES MELLITUS WITHOUT COMPLICATIONS SNOMED Code(s): 26236530 Comment: Last recored A1CL 6.2 10/19/16 and 6.12 May 2016 - Glucose 150-160s. Will recheck A1C and switch to carbohydrate consistent diet. morbidly obese on no meds. (10) Diarrhea Current Visit: Yes Status: Acute Code(s): R19.7 - DIARRHEA, UNSPECIFIED SNOMED Code(s): 47672586 Comment: will check for CDiff. started before antibiotics. if negative immodium. (11) HTN (hypertension) Current Visit: No Status: Chronic Code(s): I10 - ESSENTIAL (PRIMARY) HYPERTENSION SNOMED Code(s): 29311015 Comment: - normotensive, SBP 110-140's - Continue atenolol (12) Hypothyroidism Current Visit: No Status: Chronic Priority: Medium Code(s): E03.9 - HYPOTHYROIDISM, UNSPECIFIED SNOMED Code(s): 52965672 Comment: - TSH 2.34 in May 2017 - Continue synthroid (allergy to levothyroxine noted, able to take Synthroid) 50mcg if able to bring in (13) Seizure disorder Current Visit: No Status: Chronic Code(s): G40.909 - EPILEPSY, UNSP, NOT INTRACTABLE, WITHOUT STATUS EPILEPTICUS SNOMED Code(s): 533363261 Comment: - Very distant hx of seizures, not currently an issue but need to avoid levaquin. - Reports being taken off Topamax due to "contribution to renal stones" (14) Systolic heart failure Current Visit: No Status: Chronic Code(s): I50.20 - UNSPECIFIED SYSTOLIC ( CONGESTIVE) HEART FAILURE SNOMED Code(s): 482983377 Comment: mild MVR (formerly severe) on last ECHO June 2017 EF 55-60% Status and Disposition: medicine inpatient. needing cystoscopy 02/11 Attending: Asad Murcia
--- NOTE | 2018-02-08 15:30 | CONS ---
CC: Dr. Rojo * CONSULTATION NOTE: DATE OF CONSULT: 02/08/18 LOCATION: Patient is on short-term stay. HISTORY OF PRESENT ILLNESS: I was asked by the hospitalist service to see this 72- year-old white female because of left hydronephrosis and urinary tract infection. I have been following Mrs. Zhao for several years because of recurrent bilateral renal calculi and then because of chronic left hydronephrosis. 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 The strictured ureter was managed first with balloon dilation, then with chronic ureteral stent drainage. I last replaced the left ureteral stent about 5 weeks ago. She is also known to have left non-obstructing renal calculi measuring about 5 mm each. She also known to have recurrent urinary tract infections and her urine cultures had grown ESBL proteus in the past. Patient was doing fine until yesterday afternoon when she started having diarrhea and feeling nauseated and then developed mild left flank pain. She did not have any fever or chills. She presented to the emergency room for evaluation. She had a low-grade temperature and her white count was slightly at 12,000. Her urine was positive for infection. A noncontrast CT of the abdomen and pelvis showed normal right kidney without any calculi. There was [id number] left hydronephrosis. The left ureteral stent was in good position. There were 2 calculi measuring about 5 mm each located in the renal pelvis and not causing an obstruction. Because of the above history and findings and the concern about her developing pyelonephritis, she was admitted by the hospitalist service and was started on IV meropenem based on the previous urine culture results. When I saw her this morning, she looked very comfortable. The flank pain is much improved and she has been afebrile. IMPRESSION: 1. Urinary tract infection. 2. 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 3. Nonobstructing left renal calculi. PLAN: 1. Considering that she has infected urine, the stent needs to be replaced. It is likely that the stones noted in her renal pelvis are the reservoir for her recurrent proteus infections. 2. The plan is to keep her on IV antibiotics for the next 2 to 3 days. I plan to take her to the operating room on 02/11/18 for left ureteroscopy and pyeloscopy, laser lithotripsy and left ureteral stent exchange. 3. I discussed the above plans with the patient and her and all her questions were answered. [id number]/CPS #: [id number] MTDD
[2018-02-08] MEDS ORDERED: Warfarin TAB(*) 5 MG PO SCH (17:00)
[2018-02-08] MEDS: FLUoxetine CAP* 20 MG PO SCH (21:09)
[2018-02-09] MEDS: Meropenem 1 GM PREMIX(*) 1 GM/50 ML BAG IV SCH ×3 (01:33→17:32)
[2018-02-09] MEDS: oxyCODONE/Acetamin 5/325 MG* TAB PO PRN ×2 (03:10→09:35)
[2018-02-09] MEDS: Morphine VIAL* 4 MG/ML VIAL (1 ml vial) IV PRN (04:16)
[2018-02-09] MEDS: SYNTHROID 50 MCG PO SCH (05:53)
[2018-02-09 06:05] LABS: INR 1.47 (0.77-1.02)
[2018-02-09] MEDS: Potassium Citrate TAB (NF) 15 MEQ TABLET.ER PO SCH ×2 (07:38→21:52)
[2018-02-09] MEDS: Atenolol TAB* 50 MG PO SCH (09:35)
[2018-02-09 10:22] LABS: ABS Basophils 0.1 10^3/ul (0-0.2); ABS Eosinophils 0.1 10^3/ul (0-0.6); ABS Lymphocytes 1.2 10^3/ul (1.0-4.8); ABS Monocytes 0.6 10^3/ul (0-0.8); ABS Nucleated RBC 0 10^3/ul; Eosinophil % 1.9 % (0-6); Hematocrit 38 % (35-47); Hemoglobin 12.4 g/dl (12.0-16.0); Lymphocyte % 17.1 % (25-47); Mean Corpuscular HGB Conc 33 g/dl (31-36); Mean Corpuscular Hemoglobin 29 pg (27-31); Mean Corpuscular Volume 89 fL (80-97); Mean Platelet Volume 8.3 fL (7.4-10.4); Nucleated Red Blood Cells % 0.1; Platelet Count 195 10^3/ul (150-450); Red Blood Count 4.22 10^6/ul (4.00-5.40); Red Cell Distribution Width 16 % (10.5-15); White Blood Count 7.1 10^3/ul (3.5-10.8)
[2018-02-09] MEDS ORDERED: Vancomycin Trough Check NOTE FOLLOW UP ONE (10:30)
[2018-02-09 10:41] LABS: EGFR Non-African American 38.3 (>60)
[2018-02-09] MEDS: PTO Brimonidine P 0.1%(NF) 1 DROP BTL BOTH EYES SCH ×2 (11:39→21:52)
[2018-02-09] MEDS: ARTIFICIAL TEARS BOTH EYES SCH ×2 (11:39→21:52)
[2018-02-09] MEDS: SODIUM CHLORIDE 5% BOTH EYES SCH ×2 (11:40→21:52)
[2018-02-09] MEDS: Enoxaparin(*) 150 MG/ML 1 ML SYRINGE SUBCUT SCH ×2 (11:40→22:48)
[2018-02-09] MEDS: OPTH BOTH EYES SCH ×2 (11:40→21:52)
--- NOTE | 2018-02-09 16:28 | PN ---
Subjective Date of Service: 02/09/18 Interval History: Resting in recliner with family at bedside. Reports left flank pain is "1" out of 10 currently. Reports she feels much better than she did last evening as she had a headache last evening that has since resolved. In addition had left shoulder stiffness which has since resolved. Reports occasional "diarrhea". Approx 3 episodes today. Reports stools are mostly formed, but softer than normal and associated with a lot of gas. Cdiff negative. Denies cp, sob, n/v, urinary symptoms. Family History: Unchanged from Admission Social History: Unchanged from Admission Past Medical History: Unchanged from Admission Objective Active Medications: Acetaminophen (Tylenol Tab*) 650 mg PO Q4H PRN PRN Reason: FEVER/PAIN Last Admin: 02/08/18 12:34 Dose: 650 mg Atenolol (Tenormin Tab*) 50 mg PO QAM [facility] Last Admin: 02/09/18 09:35 Dose: 50 mg Brimonidine Tartrate (Alphagan P 0.1% (Nf)) 1 drop BOTH EYES BID [facility] Last Admin: 02/09/18 11:39 Dose: 1 drop Docusate Sodium (Colace Cap*) 100 mg PO BID PRN PRN Reason: CONSTIPATION Enoxaparin Sodium (Lovenox(*)) 150 mg SUBCUT Q12H [facility] Last Admin: 02/09/18 11:40 Dose: 150 mg Fluoxetine HCl (Prozac Cap*) 40 mg PO BEDTIME [facility] Last Admin: 02/08/18 21:09 Dose: 40 mg Meropenem (Merrem 1 Gm Premix(*)) 1 gm in 50 mls @ 100 mls/hr IV Q8H [facility] Last Admin: 02/09/18 09:36 Dose: 100 mls/hr Sodium Chloride (Ns 0.9% 1000 Ml*) 1,000 mls @ 75 mls/hr IV PER RATE [facility] Last Admin: 02/08/18 19:39 Dose: 75 mls/hr Morphine Sulfate (Morphine Vial*) 1 mg IV Q4H PRN PRN Reason: PAIN - MILD Last Admin: 02/09/18 04:16 Dose: 1 mg Pto:Synthroid 50 Mcg 1 dose PO 0600 [facility] Last Admin: 02/09/18 05:53 Dose: Not Given Ondansetron HCl (Zofran Inj*) 4 mg IV Q4H PRN PRN Reason: NAUSEA/VOMITING Oxycodone/Acetaminophen (Percocet 5/325 Tab*) 1 tab PO Q4H PRN PRN Reason: Pain Last Admin: 02/09/18 09:35 Dose: 1 tab Polyvinyl Alcohol (Polyvinyl Alcohol 1.4% Opth*) 1 drop BOTH EYES BID [facility] Last Admin: 02/09/18 11:39 Dose: 1 drop Potassium Citrate (Potassium Citrate Tab (Nf)) 15 meq PO BID [facility] Last Admin: 02/09/18 07:38 Dose: Not Given Sodium Chloride (Hypertonic) (Karolina 128 Opth 5% Opth.Soll*) 1 drop BOTH EYES BID [facility] Last Admin: 02/09/18 11:40 Dose: 1 drop Warfarin Sodium (Coumadin Tab(*)) 5 mg PO 1700 [facility]; Protocol Last Admin: 02/08/18 17:13 Dose: 5 mg Vital Signs - 8 hr 02/09/18 02/09/18 02/09/18 09:35 11:48 12:00 Temperature 97.5 F Pulse Rate 56 Respiratory 16 16 16 Rate Blood Pressure 138/55 (mmHg) O2 Sat by Pulse 94 Oximetry 02/09/18 15:37 Temperature 98.0 F Pulse Rate 73 Respiratory 20 Rate Blood Pressure 130/68 (mmHg) O2 Sat by Pulse 100 Oximetry Oxygen Devices in Use Now: None Appearance: Well appearing, NAD Eyes: No Scleral Icterus Ears/Nose/Mouth/Throat: Clear Oropharnyx, Mucous Membranes Moist Respiratory: Symmetrical Chest Expansion and Respiratory Effort, Clear to Auscultation Cardiovascular: NL Sounds; No Murmurs; No JVD Abdominal: NL Sounds; No Tenderness; No Distention Extremities: No Clubbing, Cyanosis Skin: No Rash or Ulcers Neurological: Alert and Oriented x 3 Nutrition: Taking PO's Result Diagrams: 02/09/18 10:13 02/09/18 10:13 Additional Lab and Data: Laboratory Results - last 24 hr 02/09/18 02/09/18 02/09/18 05:21 05:21 10:13 WBC 7.1 RBC 4.22 Hgb 12.4 Hct 38 MCV 89 MCH 29 MCHC 33 RDW 16 H Plt Count 195 MPV 8.3 Neut % (Auto) 71.1 Lymph % (Auto) 17.1 L [place] % (Auto) 9.2 H Eos % (Auto) 1.9 Baso % (Auto) 0.7 Absolute Neuts (auto) 5.0 Absolute Lymphs (auto) 1.2 Absolute Monos (auto) 0.6 Absolute Eos (auto) 0.1 Absolute Basos (auto) 0.1 Absolute Nucleated RBC 0 Nucleated RBC % 0.1 INR (Anticoag Therapy) 1.47 H Sodium Potassium Chloride Carbon Dioxide Anion Gap BUN Creatinine Est GFR ( Amer) Est GFR (Non-Af Amer) BUN/Creatinine Ratio Glucose Hemoglobin A1c 6.6 H Calcium 02/09/18 10:13 WBC RBC Hgb Hct MCV MCH MCHC RDW Plt Count MPV Neut % (Auto) Lymph % (Auto) [place] % (Auto) Eos % (Auto) Baso % (Auto) Absolute Neuts (auto) Absolute Lymphs (auto) Absolute Monos (auto) Absolute Eos (auto) Absolute Basos (auto) Absolute Nucleated RBC Nucleated RBC % INR (Anticoag Therapy) Sodium 139 Potassium 4.1 Chloride 109 Carbon Dioxide 25 Anion Gap 5 BUN 25 H Creatinine 1.36 H Est GFR ( Amer) 46.4 Est GFR (Non-Af Amer) 38.3 BUN/Creatinine Ratio 18.4 Glucose 137 H Hemoglobin A1c Calcium 8.5 L Microbiology and Other Data: Microbiology 02/07/18 22:20 Urine Urine Culture - Preliminary Escherichia Coli Assess/Plan/Problems-Billing Assessment: 72 yo female PMH HTN, morbid obesity, legally blind, depression, borderline DM, PE/DVT on coumadin, nephrolithiasis with recurrent left ureter stents (last replaced 01/05/18) presenting with left flank pain, N/V. Ecoli UTI. Planned stent exchange on 02/[address] Osborn. On Meropenem with Hx of ESBL proteus mirabilis. - Patient Problems (1) Obstructive uropathy Comment: - Dr. Osborn will perform cystoscopy on 02/11 to try to address 2 small nonobstructing stones - Ucx has grown Ecoli. Sensative to Meropenem. Has hx of ESBL proteus. - Currently on meropenem but hope to go to [facility] soon. (2) Diarrhea Comment: - CDiff negative - Immodium ordered (3) Pyelonephritis Comment: with left flank pain and CVA tenderness. No fevers. resolved leukocytosis. plan as above. (4) UTI (urinary tract infection) Comment: - UCx growing Ecoli. - Continue abx. (5) A-fib Comment: - Had Afib 2017 during sepsis. - Coumadin therapy - Now lovenox for prep for surgery - Hx of PE. Will need bridge - Currently NSR (6) CKD (chronic kidney disease) Comment: - Stage 3 - At baseline (7) Depression Comment: - Stable - Continue prozac (8) Diabetes Comment: - A1C 6.6 - Morbidly obese - on no meds (9) HTN (hypertension) Comment: - normotensive, SBP 110-140's - Continue atenolol (10) History of pulmonary embolus (PE) Comment: - Hx of PE in 2014 and 2012(large burden b/l) on coumadin but subtherapeutic on 10mg warfarin daily. - Therapuetic lovenox at 1mg/kg q12. - Discussed with attending and will stop Coumadin and plan to bridge after surgery. - INR on 02/11 in am. (11) Hypothyroidism Comment: - TSH 2.34 in May 2017 - Continue synthroid (allergy to levothyroxine noted, able to take Synthroid) 50mcg if able to bring in (12) Systolic heart failure Comment: mild MVR (formerly severe) on last ECHO June 2017 EF 55-60% Status and Disposition: medicine inpatient. needing cystoscopy 02/11 Attending: Trent Ferrari
[2018-02-09] MEDS ORDERED: Loperamide CAP* 2 MG PO PRN (16:43)
[2018-02-09] MEDS: cefTRIAXone(*) 1 GM in NS 0.9% 50 ML* 50 ML IVPB SCH (18:19)
[2018-02-09] MEDS: FLUoxetine CAP* 20 MG PO SCH (21:51)
[2018-02-09] MEDS: NS 0.9% 1000 ML* 1,000 ML IV SCH (23:55)
[2018-02-10 05:30] LABS: ABS Basophils 0.1 10^3/ul (0-0.2); ABS Eosinophils 0.1 10^3/ul (0-0.6); ABS Lymphocytes 1.4 10^3/ul (1.0-4.8); ABS Monocytes 0.7 10^3/ul (0-0.8); ABS Neutrophils 3.9 10^3/ul (1.5-7.7); ABS Nucleated RBC 0 10^3/ul; Eosinophil % 2.4 % (0-6); Hematocrit 37 % (35-47); Lymphocyte % 22.4 % (25-47); Mean Corpuscular HGB Conc 33 g/dl (31-36); Mean Corpuscular Hemoglobin 29 pg (27-31); Mean Corpuscular Volume 89 fL (80-97); Mean Platelet Volume 8.5 fL (7.4-10.4); Nucleated Red Blood Cells % 0; Platelet Count 192 10^3/ul (150-450); Red Cell Distribution Width 15 % (10.5-15); White Blood Count 6.3 10^3/ul (3.5-10.8)
[2018-02-10 05:34] LABS: INR 1.21 (0.77-1.02)
[2018-02-10] MEDS: SYNTHROID 50 MCG PO SCH (06:26)
--- NOTE | 2018-02-10 09:45 | PN ---
Subjective Date of Service: 02/10/18 Interval History: Call received from RN. Patient's IV infiltrated again. This is the second IV to inflitrate. Patient is requesting PICC to be placed. Due to expected duration of hosp stay and IV abx, order for Midline Access placed. Patient resting in recliner on assessment. Denies cp, palpitations, abd pain, nausea, vomiting, or flank pain. Reports mild burning with urination. Reports one soft stool today after receiving Immodium yesterday. No stool over night. 12 point ROS completed and all others negative except above mentioned Family History: Unchanged from Admission Social History: Unchanged from Admission Past Medical History: Unchanged from Admission Objective Active Medications: Acetaminophen (Tylenol Tab*) 650 mg PO Q4H PRN PRN Reason: FEVER/PAIN Last Admin: 02/08/18 12:34 Dose: 650 mg Atenolol (Tenormin Tab*) 50 mg PO QAM [facility] Last Admin: 02/09/18 09:35 Dose: 50 mg Brimonidine Tartrate (Alphagan P 0.1% (Nf)) 1 drop BOTH EYES BID [facility] Last Admin: 02/09/18 21:52 Dose: 1 drop Docusate Sodium (Colace Cap*) 100 mg PO BID PRN PRN Reason: CONSTIPATION Enoxaparin Sodium (Lovenox(*)) 150 mg SUBCUT Q12H [facility] Last Admin: 02/09/18 22:48 Dose: 150 mg Fluoxetine HCl (Prozac Cap*) 40 mg PO BEDTIME [facility] Last Admin: 02/09/18 21:51 Dose: 40 mg Sodium Chloride (Ns 0.9% 1000 Ml*) 1,000 mls @ 75 mls/hr IV PER RATE [facility] Last Admin: 02/09/18 23:55 Dose: 75 mls/hr Ceftriaxone Sodium 1 gm/ (Sodium Chloride) 50 mls @ 200 mls/hr IVPB Q24H [facility] Last Admin: 02/09/18 18:19 Dose: 200 mls/hr Morphine Sulfate (Morphine Vial*) 1 mg IV Q4H PRN PRN Reason: PAIN - MILD Last Admin: 02/09/18 04:16 Dose: 1 mg Pto:Synthroid 50 Mcg 1 dose PO 0600 [facility] Last Admin: 02/10/18 06:26 Dose: 1 dose Ondansetron HCl (Zofran Inj*) 4 mg IV Q4H PRN PRN Reason: NAUSEA/VOMITING Oxycodone/Acetaminophen (Percocet 5/325 Tab*) 1 tab PO Q4H PRN PRN Reason: Pain Last Admin: 02/09/18 09:35 Dose: 1 tab Polyvinyl Alcohol (Polyvinyl Alcohol 1.4% Opth*) 1 drop BOTH EYES BID [facility] Last Admin: 02/09/18 21:52 Dose: 1 drop Potassium Citrate (Potassium Citrate Tab (Nf)) 15 meq PO BID [facility] Last Admin: 02/09/18 21:52 Dose: Not Given Sodium Chloride (Hypertonic) (Karolina 128 Opth 5% Opth.Soll*) 1 drop BOTH EYES BID [facility] Last Admin: 02/09/18 21:52 Dose: 1 drop Vital Signs - 8 hr 02/10/18 02/10/18 02/10/18 03:54 07:33 08:00 Temperature 98.3 F 97.8 F Pulse Rate 68 71 Respiratory 16 16 16 Rate Blood Pressure 125/54 143/69 (mmHg) O2 Sat by Pulse 98 97 Oximetry Oxygen Devices in Use Now: None Appearance: Comfortable, NAD Eyes: No Scleral Icterus Ears/Nose/Mouth/Throat: Clear Oropharnyx, Mucous Membranes Moist Respiratory: Symmetrical Chest Expansion and Respiratory Effort, Clear to Auscultation Cardiovascular: NL Sounds; No Murmurs; No JVD, RRR Abdominal: NL Sounds; No Tenderness; No Distention, - - No CVA tenderness Extremities: No Clubbing, Cyanosis Skin: No Rash or Ulcers Neurological: Alert and Oriented x 3 Nutrition: Taking PO's Result Diagrams: 02/10/18 04:52 02/10/18 04:52 Additional Lab and Data: Laboratory Results - last 24 hr 02/10/18 02/10/18 02/10/18 04:52 04:52 04:52 WBC 6.3 RBC 4.10 Hgb 12.0 Hct 37 MCV 89 MCH 29 MCHC 33 RDW 15 Plt Count 192 MPV 8.5 Neut % (Auto) 62.7 Lymph % (Auto) 22.4 L [place] % (Auto) 11.1 H Eos % (Auto) 2.4 Baso % (Auto) 1.4 Absolute Neuts (auto) 3.9 Absolute Lymphs (auto) 1.4 Absolute Monos (auto) 0.7 Absolute Eos (auto) 0.1 Absolute Basos (auto) 0.1 Absolute Nucleated RBC 0 Nucleated RBC % 0 INR (Anticoag Therapy) 1.21 H Sodium 139 Potassium 4.0 Chloride 109 Carbon Dioxide 25 Anion Gap 5 BUN 26 H Creatinine 1.34 H Est GFR ( Amer) 47.2 Est GFR (Non-Af Amer) 39.0 BUN/Creatinine Ratio 19.4 Glucose 130 H Calcium 8.4 L Microbiology and Other Data: Microbiology 02/07/18 22:20 Urine Urine Culture - Preliminary Escherichia Coli Assess/Plan/Problems-Billing Assessment: 72 yo female PMH HTN, morbid obesity, legally blind, depression, borderline DM, PE/DVT on coumadin, nephrolithiasis with recurrent left ureter stents (last replaced 01/05/18) presenting with left flank pain, N/V. Ecoli UTI. Planned stent exchange on 02/[address] Osborn. Was on Meropenem d/t Hx of ESBL proteus mirabilis. Urine culture/sensitivities results and abx changed to CFTX - Patient Problems (1) Obstructive uropathy Comment: - Dr. Osborn will perform cystoscopy on 02/11 to try to address 2 small nonobstructing stones - Ucx has grown Ecoli. Sensativities results - Meropenem changed to CFTX (2) Diarrhea Comment: - CDiff negative - Immodium ordered - No diarrhea overnight. One mildly soft BM this morning (3) Pyelonephritis Comment: - Denies left flank pain and CVA tenderness. - No fevers. - Resolved leukocytosis. - Plan as above. (4) UTI (urinary tract infection) Comment: - UCx growing Ecoli and Proteus Mirabilis - Continue as above (5) IV infiltrate Comment: - IV inflitrated. - Order for Midline placed (6) A-fib Comment: - Had Afib 2017 during sepsis. - Coumadin therapy - Now on high dose lovenox for prep for surgery - Hx of PE. Will need bridge (7) CKD (chronic kidney disease) Comment: - Stage 3 - At baseline (8) Depression Comment: - Stable - Continue prozac (9) Diabetes Comment: - A1C 6.6 - Morbidly obese - on no meds (10) HTN (hypertension) Comment: - normotensive, SBP 110-140's - Continue atenolol (11) History of pulmonary embolus (PE) Comment: - Hx of PE in 2014 and 2012(large burden b/l) on coumadin but subtherapeutic on 10mg warfarin daily. - Therapuetic lovenox at 1mg/kg q12. - Discussed with attending and will stop Coumadin and plan to bridge after surgery. - INR on 02/11 in am. (12) Hypothyroidism Comment: - TSH 2.34 in May 2017 - Continue synthroid (allergy to levothyroxine noted, able to take Synthroid) 50mcg if able to bring in (13) Systolic heart failure Comment: mild MVR (formerly severe) on last ECHO June 2017 EF 55-60% Status and Disposition: Medicine inpatient. Planned cystoscopy 02/11 Attending: Asad Murcia
[2018-02-10] MEDS: ARTIFICIAL TEARS BOTH EYES SCH ×2 (10:32→21:49)
[2018-02-10] MEDS: Atenolol TAB* 50 MG PO SCH (10:33)
[2018-02-10] MEDS: Potassium Citrate TAB (NF) 15 MEQ TABLET.ER PO SCH ×2 (10:34→21:51)
[2018-02-10] MEDS: PTO Brimonidine P 0.1%(NF) 1 DROP BTL BOTH EYES SCH ×2 (10:36→21:49)
[2018-02-10] MEDS: SODIUM CHLORIDE 5% BOTH EYES SCH ×2 (10:37→22:27)
[2018-02-10] MEDS: OPTH BOTH EYES SCH ×2 (10:37→22:27)
[2018-02-10] MEDS: Enoxaparin(*) 150 MG/ML 1 ML SYRINGE SUBCUT SCH ×2 (10:37→22:29)
[2018-02-10] MEDS ORDERED: Buffered Lidocaine 0.9% SYRIN* 5 ML/SYR SYRINGE INTRADERM ONE (12:09)
[2018-02-10] MEDS: cefTRIAXone(*) 1 GM in NS 0.9% 50 ML* 50 ML IVPB SCH (18:03)
[2018-02-10] MEDS: FLUoxetine CAP* 20 MG PO SCH (21:50)
[2018-02-11 05:47] LABS: ABS Basophils 0 10^3/ul (0-0.2); ABS Eosinophils 0.1 10^3/ul (0-0.6); ABS Lymphocytes 1.5 10^3/ul (1.0-4.8); ABS Monocytes 0.6 10^3/ul (0-0.8); ABS Neutrophils 3.2 10^3/ul (1.5-7.7); ABS Nucleated RBC 0 10^3/ul; Eosinophil % 2.7 % (0-6); Hematocrit 35 % (35-47); Hemoglobin 11.5 g/dl (12.0-16.0); Lymphocyte % 27.9 % (25-47); Mean Corpuscular HGB Conc 33 g/dl (31-36); Mean Corpuscular Hemoglobin 30 pg (27-31); Mean Corpuscular Volume 89 fL (80-97); Mean Platelet Volume 8.5 fL (7.4-10.4); Nucleated Red Blood Cells % 0.1; Platelet Count 193 10^3/ul (150-450); Red Blood Count 3.88 10^6/ul (4.00-5.40); Red Cell Distribution Width 15 % (10.5-15); White Blood Count 5.5 10^3/ul (3.5-10.8)
[2018-02-11 05:52] LABS: INR 1.07 (0.77-1.02)
[2018-02-11] MEDS: SYNTHROID 50 MCG PO SCH (05:52)
[2018-02-11 06:40] LABS: EGFR Non-African American 41.1 (>60)
[2018-02-11] MEDS: Potassium Citrate TAB (NF) 15 MEQ TABLET.ER PO SCH ×2 (07:44→20:30)
[2018-02-11] MEDS: Atenolol TAB* 50 MG PO SCH (09:10)
--- NOTE | 2018-02-11 09:33 | PN ---
Subjective Date of Service: 02/11/18 Interval History: Resting in recliner. Comfortable appearing. Reports pain in left flank is "1" out of 10. Reports 3 BMs yesterday and 1 BM today. Reports stool is becoming more formed. Also experiencing less gas. Denies abd pain, nausea, vomiting. Denies urinary symptoms. IV infusing per anesthesia orders into left UE midline access. Received call from [facility]. Culture grew EBSL Proteus mirabilis Family History: Unchanged from Admission Social History: Unchanged from Admission Past Medical History: Unchanged from Admission Objective Active Medications: Acetaminophen (Tylenol Tab*) 650 mg PO Q4H PRN PRN Reason: FEVER/PAIN Last Admin: 02/08/18 12:34 Dose: 650 mg Atenolol (Tenormin Tab*) 50 mg PO QAM [facility] Last Admin: 02/11/18 09:10 Dose: 50 mg Brimonidine Tartrate (Alphagan P 0.1% (Nf)) 1 drop BOTH EYES BID [facility] Last Admin: 02/10/18 21:49 Dose: 1 drop Docusate Sodium (Colace Cap*) 100 mg PO BID PRN PRN Reason: CONSTIPATION Enoxaparin Sodium (Lovenox(*)) 150 mg SUBCUT Q12H [facility] Fluoxetine HCl (Prozac Cap*) 40 mg PO BEDTIME [facility] Last Admin: 02/10/18 21:50 Dose: 40 mg Heparin Sodium (Porcine) (Heparin Flush Picc/Ml/Cvc(*)) 1 - 3 ml FLUSH 0600, 1800 [facility]; Protocol Last Admin: 02/11/18 05:14 Dose: 1 ml Ceftriaxone Sodium 1 gm/ (Sodium Chloride) 50 mls @ 200 mls/hr IVPB Q24H [facility] Last Admin: 02/10/18 18:03 Dose: 200 mls/hr Lactated Ringer's (Lactated Ringers 1000 Ml Bag*) 1,000 mls @ 125 mls/hr IV PER RATE [facility] Last Admin: 02/11/18 05:54 Dose: 125 mls/hr Morphine Sulfate (Morphine Vial*) 1 mg IV Q4H PRN PRN Reason: PAIN - MILD Last Admin: 02/09/18 04:16 Dose: 1 mg Pto:Synthroid 50 Mcg 1 dose PO 0600 [facility] Last Admin: 02/11/18 05:52 Dose: 1 dose Ondansetron HCl (Zofran Inj*) 4 mg IV Q4H PRN PRN Reason: NAUSEA/VOMITING Oxycodone/Acetaminophen (Percocet 5/325 Tab*) 1 tab PO Q4H PRN PRN Reason: Pain Last Admin: 02/09/18 09:35 Dose: 1 tab Polyvinyl Alcohol (Polyvinyl Alcohol 1.4% Opth*) 1 drop BOTH EYES BID [facility] Last Admin: 02/10/18 21:49 Dose: Not Given Potassium Citrate (Potassium Citrate Tab (Nf)) 15 meq PO BID [facility] Last Admin: 02/11/18 07:44 Dose: Not Given Sodium Chloride (Hypertonic) (Karolina 128 Opth 5% Opth.Soll*) 1 drop BOTH EYES BID [facility] Last Admin: 02/10/18 22:27 Dose: 1 drop Vital Signs - 8 hr 02/11/18 02/11/18 02/11/18 03:43 07:49 08:13 Temperature 97.9 F 98.4 F Pulse Rate 74 73 Respiratory 18 18 Rate Blood Pressure 129/57 (mmHg) O2 Sat by Pulse 97 97 Oximetry 02/11/18 08:51 Temperature Pulse Rate 68 Respiratory Rate Blood Pressure 135/72 (mmHg) O2 Sat by Pulse Oximetry Oxygen Devices in Use Now: None Appearance: Well appearing. Eyes: No Scleral Icterus Ears/Nose/Mouth/Throat: Mucous Membranes Moist Neck: NL Appearance and Movements; NL JVP Respiratory: Symmetrical Chest Expansion and Respiratory Effort, Clear to Auscultation Cardiovascular: NL Sounds; No Murmurs; No JVD, RRR, - - +1/+2 edema to bilat le Abdominal: NL Sounds; No Tenderness; No Distention Lymphatic: No Cervical Adenopathy Extremities: No Clubbing, Cyanosis Skin: - - Bruising to right UE AC where previous IV as inflitrated. Neurological: Alert and Oriented x 3 Nutrition: Taking PO's, - - Currently NPO for surgery Result Diagrams: 02/11/18 05:13 02/11/18 05:13 Additional Lab and Data: Laboratory Results - last 24 hr 02/11/18 02/11/18 02/11/18 05:13 05:13 05:13 WBC 5.5 RBC 3.88 L Hgb 11.5 L Hct 35 MCV 89 MCH 30 MCHC 33 RDW 15 Plt Count 193 MPV 8.5 Neut % (Auto) 57.7 Lymph % (Auto) 27.9 [place] % (Auto) 11.0 H Eos % (Auto) 2.7 Baso % (Auto) 0.7 Absolute Neuts (auto) 3.2 Absolute Lymphs (auto) 1.5 Absolute Monos (auto) 0.6 Absolute Eos (auto) 0.1 Absolute Basos (auto) 0 Absolute Nucleated RBC 0 Nucleated RBC % 0.1 INR (Anticoag Therapy) 1.07 H Sodium 140 Potassium 4.1 Chloride 109 Carbon Dioxide 27 Anion Gap 4 BUN 25 H Creatinine 1.28 H Est GFR ( Amer) 49.7 Est GFR (Non-Af Amer) 41.1 BUN/Creatinine Ratio 19.5 Glucose 124 H Calcium 8.5 L Microbiology and Other Data: Microbiology 02/07/18 22:20 Urine Urine Culture - Preliminary Escherichia Coli Assess/Plan/Problems-Billing Assessment: 72 yo female PMH HTN, morbid obesity, legally blind, depression, borderline DM, PE/DVT on coumadin, nephrolithiasis with recurrent left ureter stents (last replaced 01/05/18) presenting with left flank pain, N/V. Ecoli UTI. Planned stent exchange on 02/[address] Osborn. Was on Meropenem d/t Hx of ESBL proteus mirabilis. Urine culture/sensitivities results and abx changed to CFTX - Patient Problems (1) Obstructive uropathy Comment: - Dr. Osborn will perform cystoscopy today to try to address 2 small nonobstructing stones - Ucx has grown Ecoli and EBSL Proteus mirabilis. - Discontinue CFTX and restart Meropenem - ID will be here tomorrow to see patient. (2) Diarrhea Comment: - CDiff negative - Immodium x1 on 02/09 - Stools are becoming more formed and she is experiencing less gas (3) Pyelonephritis Comment: - Reports Left flank pain "1" out of 10. - No fevers. - Resolved leukocytosis. - Plan as above. (4) UTI (urinary tract infection) Comment: - UCx growing Ecoli and EBSL Proteus Mirabilis - Discontinue CFTX and restart Meropenem - ID to see patient tomorrow (5) IV infiltrate Comment: - IV inflitrated. - Monitor bruising to Right AC - Midline in place to LUE (6) A-fib Comment: - Had Afib 2017 during sepsis. - Coumadin therapy - High dose lovenox BID. Today's AM dose held to prepare for OR. Resume after surgery and start Coumadin bridge unless contraindicated. - Hx of PE. (7) CKD (chronic kidney disease) Comment: - Stage 3 - At baseline (8) Depression Comment: - Stable - Continue prozac (9) Diabetes Comment: - A1C 6.6 - Morbidly obese - on no meds (10) HTN (hypertension) Comment: - normotensive, SBP 110-140's - Continue atenolol (11) History of pulmonary embolus (PE) Comment: - Hx of PE in 2014 and 2012(large burden b/l) on coumadin but subtherapeutic on 10mg warfarin daily. - Therapuetic lovenox at 1mg/kg q12. - AM dose held for surgery. Will resume evening dose and start bridge of Coumadin unless contraindicated. - INR today 1.07 (12) Hypothyroidism Comment: - TSH 2.34 in May 2017 - Continue synthroid (allergy to levothyroxine noted, able to take Synthroid) 50mcg if able to bring in (13) Systolic heart failure Comment: mild MVR (formerly severe) on last ECHO June 2017 EF 55-60% Status and Disposition: Medicine inpatient. Planned cystoscopy today at 1400 Attending: Nydia Bryant
[2018-02-11] MEDS: ARTIFICIAL TEARS BOTH EYES SCH ×2 (09:56→20:33)
[2018-02-11] MEDS: PTO Brimonidine P 0.1%(NF) 1 DROP BTL BOTH EYES SCH ×2 (09:57→20:33)
[2018-02-11] MEDS: OPTH BOTH EYES SCH ×2 (10:02→21:44)
[2018-02-11] MEDS: SODIUM CHLORIDE 5% BOTH EYES SCH ×2 (10:02→21:44)
[2018-02-11] MEDS ORDERED: fentaNYL* 50 MCG/ML 2 ML VIAL (100 MCG VIAL) ONE ×3 (13:27→16:18)
[2018-02-11] MEDS ORDERED: Morphine VIAL* 4 MG/ML VIAL (1 ml vial) IV ONE (13:48)
[2018-02-11] MEDS: Morphine VIAL* 4 MG/ML VIAL (1 ml vial) IV PRN (13:49)
[2018-02-11] MEDS ORDERED: Naloxone* 0.4 MG/ML 1 ML VIAL IV PRN (14:54)
[2018-02-11] MEDS ORDERED: Propofol* 10 MG/ML 20 ML BTL IV PUSH ONE (15:00)
[2018-02-11] MEDS ORDERED: Meropenem 1 GM PREMIX(*) 1 GM/50 ML BAG IV SCH (15:00)
[2018-02-11] MEDS ORDERED: Iohexol 180 (CONTRAST) 10 ML SDV IV ONE (15:00)
[2018-02-11] MEDS ORDERED: Sodium Citrate/Citric Acid* 15 ML UDC ONE (15:00)
[2018-02-11] MEDS ORDERED: Gentamicin ADULT (*) 40 MG/ML VIAL ONE (15:16)
[2018-02-11] MEDS ORDERED: Lidocaine 2% PF * 5 ML VIAL ONE (15:20)
[2018-02-11] MEDS ORDERED: Phenylephrine INJ* 10 MG/ML 1 ML VIAL (10 MG) ONE (15:56)
[2018-02-11] MEDS: fentaNYL* 50 MCG/ML 2 ML VIAL (100 MCG VIAL) IV PRN ×4 (16:18→16:37)
[2018-02-11] MEDS: Meropenem 1 GM PREMIX(*) 1 GM/50 ML BAG IV SCH (17:10)
[2018-02-11] MEDS: oxyCODONE/Acetamin 5/325 MG* TAB PO PRN ×2 (17:10→21:11)
[2018-02-11] MEDS ORDERED: Warfarin TAB(*) 5 MG PO SCH (20:00)
[2018-02-11] MEDS ORDERED: Warfarin TAB(*) 10 MG PO ONE (20:00)
[2018-02-11] MEDS: FLUoxetine CAP* 20 MG PO SCH (20:31)
[2018-02-11] MEDS: Enoxaparin(*) 150 MG/ML 1 ML SYRINGE SUBCUT SCH (21:11)
[2018-02-12] MEDS: Meropenem 1 GM PREMIX(*) 1 GM/50 ML BAG IV SCH ×2 (00:34→08:08)
[2018-02-12] MEDS: oxyCODONE/Acetamin 5/325 MG* TAB PO PRN ×2 (01:04→15:47)
[2018-02-12] MEDS: SYNTHROID 50 MCG PO SCH (06:11)
[2018-02-12 06:25] LABS: ABS Basophils 0 10^3/ul (0-0.2); ABS Eosinophils 0.1 10^3/ul (0-0.6); ABS Lymphocytes 1.3 10^3/ul (1.0-4.8); ABS Monocytes 0.5 10^3/ul (0-0.8); ABS Neutrophils 4.1 10^3/ul (1.5-7.7); ABS Nucleated RBC 0 10^3/ul; Eosinophil % 1.5 % (0-6); Hematocrit 33 % (35-47); Lymphocyte % 21.7 % (25-47); Mean Corpuscular HGB Conc 34 g/dl (31-36); Mean Corpuscular Hemoglobin 30 pg (27-31); Mean Corpuscular Volume 90 fL (80-97); Mean Platelet Volume 8.2 fL (7.4-10.4); Nucleated Red Blood Cells % 0.1; Platelet Count 168 10^3/ul (150-450); Red Blood Count 3.64 10^6/ul (4.00-5.40); Red Cell Distribution Width 16 % (10.5-15)
[2018-02-12 06:30] LABS: INR 1.03 (0.77-1.02)
[2018-02-12 06:43] LABS: EGFR Non-African American 45.6 (>60)
[2018-02-12] MEDS ORDERED: Gentamicin ADULT (*) 160 MG in NS 0.9% 100 ML* 100 ML IVPB ONE ×2 (07:30→16:30)
[2018-02-12] MEDS: Potassium Citrate TAB (NF) 15 MEQ TABLET.ER PO SCH (08:48)
[2018-02-12] MEDS: Atenolol TAB* 50 MG PO SCH (08:51)
[2018-02-12] MEDS: PTO Brimonidine P 0.1%(NF) 1 DROP BTL BOTH EYES SCH (08:52)
[2018-02-12] MEDS: OPTH BOTH EYES SCH (08:52)
[2018-02-12] MEDS: SODIUM CHLORIDE 5% BOTH EYES SCH (08:52)
[2018-02-12] MEDS: ARTIFICIAL TEARS BOTH EYES SCH (08:52)
[2018-02-12] MEDS: Enoxaparin(*) 150 MG/ML 1 ML SYRINGE SUBCUT SCH (10:50)
[2018-02-12 14:44] VITALS: BP 145/70
--- NOTE | 2018-02-12 15:08 | OP ---
DATE OF OPERATION: 02/11/18 - ROOM #350 DATE OF : 47 SURGEON: Agustin Osborn MD. ANESTHESIOLOGIST: Arnoldo Melendrez DO. ANESTHESIA: General. PRE-OP DIAGNOSES: 1. Left hydronephrosis. 2. Status post placement of left ureteral stent. 3. Left renal calculi. POST-OP DIAGNOSES: 1. Left pyelonephritis and pyonephrosis. 2. Left renal calculi 3. Status post placement of left ureteral stent. OPERATIVE PROCEDURE: 1. Cystoscopy. 2. Left ureteroscopy. 3. Left retrograde pyelography and left ureteral stent exchange. INDICATION FOR PROCEDURE: Ms. 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 She has been managed by chronic Lt ureteral stent drainage. The stent was last replaced 5 weeks ago. The patient presented to the emergency room about 4 days ago with left flank pain and was noted to have urinary tract infection. CT showed the stent in good position, there was [id number] left hydronephrosis and 2 calculi measuring about 5 to 6 mm each noted in the left renal pelvis. The patient was admitted and placed on IV Rocephin and Meropenem. She did very well. She has been afebrile, and the Lt flank pain resolved. She is being brought in for replacement of the left ureteral stent and for removal of the left renal calculi. PATHOLOGY AT CYSTOSCOPY: The bladder mucosa showed slight hyperemia. There were no changes of acute cystitis. The distal limb of the stent was seen coming from the left ureteral orifice. Following the placement of the ureteral catheter in the renal pelvis. The urine looked clear. However, as ureteroscopy was started there was noted significant degree of hyperemia of the ureter and cloudy urine seen coming from the kidney. DESCRIPTION OF PROCEDURE: After successful general anesthesia, the patient was placed in the lithotomy position and was prepped and draped for a cystoscopy. Cystoscopy was performed. The bladder was carefully inspected and the above findings were noted. The distal limb of the stent was pulled out to the level of the urethral meatus. A flexible tip guidewire was then introduced into the lumen of the stent, but the stent was occluded and it had to be removed. The guidewire was then passed without difficulty into the left ureter and positioned in the area of the renal pelvis. A size 5-Bel[place]ian open-ended catheter was then fed on top of the guidewire and positioned in the area of the renal pelvis. Urine was drained and it looked clear. With the clear looking urine it was decided to proceed with the ureteroscopy. A size 6.5 semirigid tapered ureteroscope was then introduced inside the bladder. A flexible tip basket was introduced through the port of the ureteroscope and the flexible tip was passed inside the left ureter and the ureteroscope was introduced without difficulty. The irrigation into the ureteroscope was kept to a minimum. The ureteral mucosa was then inspected all the way into the proximal ureter. At that level, the ureteral mucosa looked hyperemic and there was cloudy urine noted in the proximal ureter. With that finding, and because of concern that the patient may become septic, the ureteroscopy was stopped and the ureteroscope was removed. A retrograde pyelography was performed and a black silicone stent, 24 cm long, 8.5- Bel[place]ian was then placed with the proximal and coiling in the renal pelvis and the distal end coiling inside the bladder. Purulent urine was seen draining through the stent. A size 16-Bel[place]ian Dixon catheter was then placed inside the bladder. The patient tolerated the procedure well and left the operating room in good condition. The plan is to observe the patient for possible sepsis. She will be continued on her antibiotics and observed overnight. [id number]/CPS #: [id number] MTDD
[2018-02-12] MEDS ORDERED: Warfarin TAB(*) 10 MG PO ONE (17:00)
--- NOTE | 2018-02-13 06:43 | DS ---
CC: Popeye Rojo MD; Agustin Osborn MD, Urologist * DISCHARGE SUMMARY: DATE OF ADMISSION: 02/07/18 DATE OF DISCHARGE: 02/12/18 PRINCIPAL DIAGNOSES: Left renal calculi and urinary tract infection. SECONDARY DIAGNOSES: 1. Borderline diabetes. 2. Morbid obesity. 3. History of migraines. 4. History of mitral valve regurgitation. 5. Hypertension. 6. Coronary artery disease. 7. Hyperlipidemia. 8. Depression. 9. History of nephrolithiasis followed by Dr. Osborn with a stent in place. 10. History of PE and DVT, on Coumadin. 11. Hypothyroidism. 12. Glaucoma. 13. Chronic kidney disease, stage 3. MEDICATIONS: New medications on discharge: 1. Lovenox 150 mg subcu b.i.d. for the next 7 days or when INR is therapeutic. Remaining medications are unchanged as follows: 1. Sodium chloride 5% ophthalmic drops 1 drop both eyes b.i.d. 2. Artificial tear 1 drop both eyes b.i.d. 3. Alphagan 0.1% 1 drop both eyes b.i.d. 4. Multivitamin p.o. daily. 5. Atenolol 50 mg p.o. in the morning. 6. Warfarin 10 mg at bedtime. 7. Prozac 40 mg at bedtime. 8. Potassium citrate 15 mEq p.o. b.i.d. 9. Synthroid 50 mcg p.o. daily. HOSPITAL COURSE: In summary, this is a 72-year-old female with a past medical history of PE and DVT, on Coumadin who presents to the emergency room with flank pain. She does have a known history of nephrolithiasis with left ureteral stent in place back in January of 2018. The patient's UA was concerning for UTI though she did not have any urinary symptoms. She was admitted with broad-spectrum antibiotics, meropenem, and vancomycin and Dr. Osborn from Urology was consulted. He exchanged out her stents on 02/11/18. He was concerned about her ESBL and gave her a dose of gentamicin. The patient will be on antibiotics for appropriate coverage for 24 hours post stent exchange and is going to be discharged today with follow up with Dr. Osborn. She states she clinically improved. She is anxious to go home. She has some flank pain but improved since admission. No urinary symptoms. She has no white count. No fever. Her vitals are normal. The patient's urine culture grew out 50,000 to 75,000 CFU of ESBL Proteus and 75,000 to 100,000 E. coli. The patient's Coumadin was held for her procedure and she is now resumed back on to Lovenox to be bridged. The patient is going to get nursing instruction on how to get the Lovenox b.i.d. until her INR becomes therapeutic and then she will discontinue the Lovenox. We will give her a lab slip to have her labs obtained within the next 2 to 3 days and to follow up with her primary care physician regarding those results. The patient is being discharged to home under the care of her . She is tolerating p.o., ambulating and pain free. She is to follow up with Dr. Osborn over the next one month and follow up with Dr. Rojo over the next 1 to 2 weeks. The patient is aware of the discharge instructions. DIET: Diabetic diet. ACTIVITY: Increase as tolerated. If the patient gets worsening flank pain or urinary symptoms including burning with urination, pain or frequency with fever , she should return to the emergency room or call her primary care physician for further evaluation. PATIENT TIME: Greater than 30 minutes was spent doing this discharge summary with more than half the time spent in direct patient contact. [id number]/CPS #: [id number] MTDD
== END 2018-02-12 18:08 | disposition home or self-care (01) | DRG 660 ==
LOC: ED 18:56 → SSU 23:55
PROVIDERS: ADMIT Internal Medicine; ATTEND Pediatrics
PROC: 0T778DZ Dilation of Left Ureter with Intraluminal Device, Via Natural or Artificial Opening Endoscopic (ICD-10-PCS; 2018-02-11)
PROC: 0TP98DZ Removal of Intraluminal Device from Ureter, Via Natural or Artificial Opening Endoscopic (ICD-10-PCS; 2018-02-11)
PROC: BT1FZZZ Fluoroscopy of Left Kidney, Ureter and Bladder (ICD-10-PCS; principal; 2018-02-11 14:15)
DX: T83.192A Other mechanical complication of indwelling ureteral stent, initial encounter (principal); N13.6 Pyonephrosis; F84.0 Autistic disorder; I50.20 Unspecified systolic (congestive) heart failure; I13.0 Hypertensive heart and chronic kidney disease with heart failure and stage 1 through stage 4 chronic kidney disease, or unspecified chronic kidney disease; Y73.2 Prosthetic and other implants, materials and accessory gastroenterology and urology devices associated with adverse incidents; Z68.43 Body mass index [BMI] 50.0-59.9, adult; H91.90 Unspecified hearing loss, unspecified ear; H54.8 Legal blindness, as defined in USA; Z96.611 Presence of right artificial shoulder joint; E03.9 Hypothyroidism, unspecified; I25.10 Atherosclerotic heart disease of native coronary artery without angina pectoris; E78.00 Pure hypercholesterolemia, unspecified; E11.51 Type 2 diabetes mellitus with diabetic peripheral angiopathy without gangrene; M19.90 Unspecified osteoarthritis, unspecified site; Z96.653 Presence of artificial knee joint, bilateral; E11.39 Type 2 diabetes mellitus with other diabetic ophthalmic complication; H42 Glaucoma in diseases classified elsewhere; E66.01 Morbid (severe) obesity due to excess calories; G43.909 Migraine, unspecified, not intractable, without status migrainosus; I34.0 Nonrheumatic mitral (valve) insufficiency; E78.5 Hyperlipidemia, unspecified; F32.9 Major depressive disorder, single episode, unspecified; N18.3 Chronic kidney disease, stage 3 (moderate); E11.22 Type 2 diabetes mellitus with diabetic chronic kidney disease; B96.20 Unspecified Escherichia coli [E. coli] as the cause of diseases classified elsewhere; N20.0 Calculus of kidney; I48.91 Unspecified atrial fibrillation; R19.7 Diarrhea, unspecified; G40.909 Epilepsy, unspecified, not intractable, without status epilepticus; B96.4 Proteus (mirabilis) (morganii) as the cause of diseases classified elsewhere; Z98.42 Cataract extraction status, left eye; Y92.9 Unspecified place or not applicable; Z98.41 Cataract extraction status, right eye; Z90.710 Acquired absence of both cervix and uterus; Z82.49 Family history of ischemic heart disease and other diseases of the circulatory system; Z87.442 Personal history of urinary calculi; Z87.440 Personal history of urinary (tract) infections; Z86.718 Personal history of other venous thrombosis and embolism; Z86.711 Personal history of pulmonary embolism; Z97.4 Presence of external hearing-aid; Z90.49 Acquired absence of other specified parts of digestive tract; Z81.8 Family history of other mental and behavioral disorders; Z83.511 Family history of glaucoma; Z88.8 Allergy status to other drugs, medicaments and biological substances; Z91.040 Latex allergy status; Z88.2 Allergy status to sulfonamides; Z79.01 Long term (current) use of anticoagulants
CPT/HCPCS: 36415; 74176; 74420; 80048; 80053; 81003; 81015; 83036; 83605; 83690; 83735; 85025; 85610; 85730; 86140; 87040; 87077; 87086; 87181; 87186; 87493; 99285; A9270-GY; J0696; J1580; J1650; J2185; J2270; J2405; J2704; J3010; J3370

== ENCOUNTER 2018-05-06 05:42 | Day surgery (SDC) | payer MEDICARE ==
--- NOTE | 2018-04-28 10:06 | HP ---
CC: Dr. Rojo * HISTORY AND PHYSICAL: DATE OF PLANNED ADMISSION AND SURGERY: 05/06/18 HISTORY OF PRESENT ILLNESS: Mrs. Zhao is a 72-year-old white female who is admitted for cystoscopy, left ureteroscopy, laser lithotripsy, and left ureteral stent exchange. This is one of multiple admissions of this lady who has had recurrent episodes of bilateral renal calculi. The right renal calculi were all treated and her right kidney has been stone free. She developed left ureteral strictures secondary to left retroperitoneal spontaneous hematoma that occurred while she was on anticoagulation. This resulted in partial narrowing of her left ureter with chronic left hydronephrosis. She also had 2 residual left renal calculi measuring 5 to 6 mm each. The ureteral strictures recurred and whenever the stent was removed, she would go into urosepsis with associated left hydronephrosis. The stent was last replaced 2 months ago. The patient has done very well with the stent in place. She continues to have positive urine culture with E. coli sensitive to most antibiotics. The source of the recurrent UTIs could be the residual stones in her left kidney. The patient now is admitted for left ureteroscopy and pyeloscopy, laser lithotripsy, and left ureteral stent exchange. PAST MEDICAL HISTORY AND SYSTEM REVIEW: The patient is morbidly obese, she is legally blind. She has history of DVT with Coumadin. She has history of mitral valve prolapse. She has hypothyroidism and decreased renal function. PAST SURGICAL HISTORY: She had a hysterectomy and cholecystectomy in the past and had bilateral knee replacements. MEDICATIONS: The patient is on the following medications: 1. Multivitamin 1 tablet daily. 2. Atenolol 50 mg daily. 3. Warfarin 10 mg at bedtime. 4. Fluoxetine 40 mg daily. 5. Potassium citrate. ALLERGIES: She reports being allergic to SULFA which gives her hives, to QUINOLONES which give her seizures, and to MACRODANTIN which gives her hives. She is also allergic to LATEX. FAMILY HISTORY: Relevant for her mother who has glaucoma and dementia. Her father had diabetes and leukemia. SOCIAL HISTORY: The patient is a nonsmoker and denies alcohol or drug use. She is and her has been very supportive. PHYSICAL EXAMINATION GENERAL: Pleasant white female who is morbidly obese and who is legally blind. VITAL SIGNS: Her BMI is 53. Blood pressure 120/70, pulse of 74. LUNGS: Clear. HEART: Regular and rhythmic, no murmurs. ABDOMEN: Soft. No tenderness and no CVA tenderness. EXTREMITIES: Marked edema of both lower extremities, more so on the left side. IMPRESSION: 1. 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 2. Left renal calculi, with recurrent urinary tract infections. PLAN/RECOMMENDATIONS: Cystoscopy, left ureteroscopy, and laser lithotripsy of the left renal calculi. The patient will be started on Augmentin preoperatively. If the urine looks grossly contaminated at the time of the procedure, the ureteroscopy will not be performed. The patient was advised to skip Coumadin for 2 to 3 days prior to the planned admission. [id number]/CPS #: [id number] MTDD
[~2018-05-06 05:42] MED LIST changes: -Buffered Lidocaine 0.9% SYRIN* 5 ML/SYR SYRINGE INTRADERM ONE; +Buffered Lidocaine 1% SYRIN* 1 ML/SYRINGE INTRADERM ONE; -Dexamethasone IV* 4 MG/ML 1 ML (4 MG) IV SLOW PU ONE; -Famotidine IV* 10 MG/ML 2 ML (20 mg) IV ONE
[2018-05-06] MEDS ORDERED: Lactated Ringers 1000 ML Bag* 1,000 ML IV SCH (06:00)
[2018-05-06] MEDS ORDERED: cefTRIAXone(*) 2 GM ADDV.VIAL IVPB ONE (06:27)
[2018-05-06] MEDS ORDERED: Iohexol 180 (CONTRAST) 10 ML SDV IV ONE (06:59)
[2018-05-06] MEDS ORDERED: Gentamicin ADULT (*) 160 MG in NS 0.9% 100 ML* 100 ML IVPB ONE (07:00)
[2018-05-06] MEDS ORDERED: Propofol* 10 MG/ML 20 ML BTL ONE (07:27)
[2018-05-06] MEDS ORDERED: fentaNYL* 50 MCG/ML 2 ML VIAL (100 MCG VIAL) ONE ×2 (07:27→09:33)
[2018-05-06] MEDS ORDERED: Midazolam* 1 MG/ML 2 ML VIAL (2 MG) ONE (07:27)
[2018-05-06] MEDS ORDERED: Ondansetron INJ* 2 MG/ML VIAL IV PRN (08:36)
[2018-05-06] MEDS ORDERED: Naloxone* 0.4 MG/ML 1 ML VIAL IV PRN (08:36)
[2018-05-06] MEDS ORDERED: DiMENhydriNATE IV* 50 MG/ML VIAL IV PUSH PRN (08:36)
[2018-05-06] MEDS ORDERED: Ondansetron INJ* 2 MG/ML VIAL ONE (09:05)
[2018-05-06] MEDS ORDERED: oxyCODONE/Acetamin 5/325 MG* TAB ONE ×2 (09:31→10:01)
[2018-05-06] MEDS: oxyCODONE/Acetamin 5/325 MG* TAB PO PRN ×2 (09:32→10:02)
[2018-05-06] MEDS: fentaNYL* 50 MCG/ML 2 ML VIAL (100 MCG VIAL) IV PRN ×4 (09:34→10:03)
[2018-05-06 10:30] VITALS: BP 142/72
--- NOTE | 2018-05-06 12:39 | OP ---
DATE OF OPERATION: 05/06/18 [facility] DATE OF : 47 SURGEON: Agustin Osborn MD. ANESTHESIOLOGIST: Dr. Mayo Chen. ANESTHESIA: General. PRE-OP DIAGNOSES: 1. Left renal calculi. 2. Left urethral stricture. 3. Status post placement left urethral stent. POST-OP DIAGNOSIS: 1. Left renal calculi. 2. Left ureteral stricture. 3. Status post placement left ureteral stent. OPERATIVE PROCEDURE: 1. Cystoscopy. 2. Left ureteroscopy and pyeloscopy. 3. Left retrograde pyelography. 4. Left ureteral stent exchange (8 Bermudian, 24 cm). INDICATIONS FOR PROCEDURE: Ms. Zhao is a 72-year-old white female who has left renal calculi and who developed left ureteral stricture secondary to spontaneous retroperitoneal hematoma. She has been managed with chronic stent drainage. She has had recurrent episodes of asymptomatic urinary tract infections. The patient is admitted for the stent exchange and attempt at lithotripsy. PATHOLOGY: At fluoroscopy, the stent was seen in good position. No radiopaque calculi were seen in the area of the left kidney. At cystoscopy, the bladder mucosa showed mild hyperemia. The distal limb of the stent was seen coming from the left ureteral orifice. Upon left retrograde pyelography, there was moderate left hydronephrosis. There was a partial stricture of the proximal ureter. Upon left ureteroscopy, there was the expected edema in the ureter and in the renal pelvis from the chronic presence of the stent. A cluster of calculi that had the gross appearance of calcium phosphate stones were noted in a dilated upper pole calyx. The calculi however could not be broken with a laser because of significant movement of the patient associated with breathing. DESCRIPTION OF PROCEDURE: After successful general anesthesia, the patient was placed in the lithotomy position and was prepped and draped for cystoscopy. Cystoscopy was performed. The bladder was inspected and the above findings were noted. The left ureteral stent was removed over a guidewire. Retrograde pyelography was then performed demonstrating the above pathology. With the guidewire in place, a 10-12 Bermudian access sheath was fed on top of the guidewire and positioned in the left ureter. A flexible ureteroscope was then introduced into the access sheath and was passed without difficulty inside the renal pelvis. The various calyces were then inspected with the ureteroscope. A cluster of calculi were noted in a dilated upper pole calyx. The calculi had the gross appearance of calcium phosphate stones. A 200 micron laser fiber was then introduced through the ureteroscope. Attempt at lasering the stone fragments was not successful as the patient had lot of motion associated with her breathing and the laser fiber could not be maintained over the calculi. It was felt that attempting at basketing will not be also successful for the same reason. The ureteroscope was then removed keeping the guidewire in place. A semirigid ureteroscopy was performed to evaluate the stricture. A size 24-cm long 8-Bermudian stent was then placed with the proximal end coiling in the renal pelvis and distal end coiling inside the bladder. There was good drainage of contrast from the kidney and no extravasation. The patient tolerated the procedure well and left the operating room in good condition. [id number] #: [id number] ANTHONY
== END 2018-05-06 10:45 | disposition home or self-care (01) ==
LOC: OR 05:42
PROVIDERS: ATTEND Urology
DX: N13.1 Hydronephrosis with ureteral stricture, not elsewhere classified (principal); N13.2 Hydronephrosis with renal and ureteral calculous obstruction; N39.0 Urinary tract infection, site not specified; Z87.440 Personal history of urinary (tract) infections; Z86.718 Personal history of other venous thrombosis and embolism; Z79.01 Long term (current) use of anticoagulants; E66.01 Morbid (severe) obesity due to excess calories
CPT/HCPCS: 74420; A9270-GY; C1876; J0696; J1580; J2250; J2405; J2704; J3010

== ENCOUNTER 2018-08-30 08:51 | Emergency (ER) | payer MEDICARE ==
[2018-08-30] MEDS ORDERED: NS 0.9% 1000 ML** 1,000 ML IV ONE (08:58)
--- OUTSIDE RECORDS SUMMARY | 2018-08-30 09:06 | XMS REPORT | Continuity of Care Document ---
:1945 External Reference #:[id number] Author Name Jacy Corral PA-C Address [address] [place] [address] Care Team Providers Name Role Phone Popeye Rojo MD Primary Care Physician Unavailable Payers Date Identification Numbers Payment Provider Subscriber Effective: Policy Number: [id number] [facility] Christel Zhao 2018 Advntg PayID: [id number] [address] [address] [place] [address] Advance Directives Description No Information Available Problems Active Problems Provider Date Impacted cerumen Abel Aguila M.D. Onset: 05/02/2014 Sensorineural hearing loss, bilateral Abel Aguila M.D. Onset: 10/06 Unilateral loss of labyrinthine Abel Aguila M.D. Onset: 09/17/2011 reactivity Sudden hearing loss Abel Aguila M.D. Onset: 09/17/2011 Essential hypertension Abel Aguila M.D. 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 Tobacco Use Start: Unknown Never Smoked Cigarettes Tobacco Use Start: Unknown Never Smoked Cigars Tobacco Use Start: Unknown Never Smoked A Pipe Smokeless Tobacco Never Used Smokeless Tobacco ETOH Use Currently occasionally consumes alcohol Tobacco Use Start: Unknown Patient has never smoked Allergies, Adverse Reactions, Alerts Active Allergies Reaction Severity Comments Date Latex 12/04/2010 sulfa 12/04/2010 Levaquin 05/02/2014 Levothyroxine rash and itching 07/31/2018 Nitrofurantoin Difficulty breathing, hives and itching 07/31/2018 Medications Active Medications SIG Qnty Indications Ordering Provider Date Lipitor 1 po daily Popeye Rojo MD 20mg Atenolol 1 po daily Popeye Rojo MD 50mg Tablets Bumetanide 1 po daily Darrel, Popeye OBANDO 1mg Tablets Aspirin Ec Low Dose Darrel, Popeye OBANDO 81mg Tablets DR Synthroid 1 po daily Popeye Rojo MD 25mcg Tablets Eliquis Take 1 Tablet By Unknown 5mg Tablets Mouth Two Times Daily Fluoxetine HCL Take 1 Capsule By Unknown 40mg Mouth Every Day For Capsules Anxiety And Depression History Medications Prednisone 5 tabs po every 40tabs 388.2 Abel Gillespie 07/31/2011 - 10mg day x4 d, then 4 Bindu Aguila 09/17/2011 Tablets tabs po every day x 4d, then 3 tab po daily x4d, then 2 tab po daily x4d, then 1 tab po x4d [facility] 07/30/2018 Tablets Cefuroxime Axetil 1 by mouth twice Popeye Rojo MD - a day for 10 07/30/2018 250mg Tablets days Zomig as directed Popeye Rojo MD - 2.5mg Tablets 07/30/2018 [facility]op[facility] 07/30/2018 Tablets Karolina 128 as directed Popeye Rojo MD - 2% 12/05/2015 Solution Atropine Unknown - 05/02/2014 Alphagan P 1 gtt bid Popeye Rojo MD - 12/05/2015 Batopic Eye gtts Unknown - 05/02/2014 Zomig Unknown - 05/02/2014 Topamax 1 po tid Popeye Rojo MD - 50mg 12/05/2015 Immunizations Description No Information Available Vital Signs Date Vital Result Comment 07/31/2018 9:46am Weight 323.00 lb Weight 146.513 kg Height 66 inches 5'6" Height in cm's 167.6 cm BMI (Body Mass Index) 52.1 kg/m2 12/05/2015 11:04am Respiratory Rate 17 /min Weight 323.00 lb Weight 146.513 kg Height 66 inches 5'6" Height in cm's 167.6 cm BMI (Body Mass Index) 52.1 kg/m2 05/02/2014 9:10am BP Systolic 119 mmHg BP Diastolic 64 mmHg Heart Rate 75 /min Respiratory Rate 17 /min Weight 323.00 lb Weight 146.513 kg Height 66 inches 5'6" Height in cm's 167.6 cm BMI (Body Mass Index) 52.1 kg/m2 10/07/2011 10:58am BP Systolic 141 mmHg BP Diastolic 92 mmHg Heart Rate 75 /min Respiratory Rate 17 /min Weight 323.00 lb Weight 146.513 kg Height 66 inches 5'6" Height in cm's 167.6 cm BMI (Body Mass Index) 52.1 kg/m2 09/17/2011 1:33pm Weight 323.00 lb Weight 146.513 kg Height 66 inches 5'6" Height in cm's 167.6 cm BMI (Body Mass Index) 52.1 kg/m2 02/25/2011 1:32pm Weight 321.00 lb Weight 145.606 kg Height 65 inches 5'5" Height in cm's 165.1 cm BMI (Body Mass Index) 53.4 kg/m2 02/22/2011 10:09am Weight 321.00 lb Weight 145.606 kg Height 65 inches 5'5" Height in cm's 165.1 cm BMI (Body Mass Index) 53.4 kg/m2 Results Test Date Facility Test Result H/L Range Note Laboratory test 09/18/2011 [facility] BUN 20 mg/dL 6-24 [place] [address] [phone] Creatinine 09/18/2011 [facility] Creatinine 1.3 mg/dL 0.50- 1.40 [place], [place] [id number] [phone] [facility] Creatinine 0.76 eGFR Non- 41.2 > 60 eGFR 53.0 > 60 1 1 Because ethnic data is not always readily [...] Kidney failure <15 (or dialysis) Procedures Date Code Description Status 07/31/2018 41684 Removal Wax Impaction Completed 12/05/2015 90626 Binocular Microscopy Completed 05/02/2014 46283 Removal Wax Impaction Completed 09/17/2011 46225 Tympanometry Completed 09/17/2011 85285 Comprehensive Audiogram Completed 07/31/2011 42099 Tympanometry Completed 07/31/2011 41561 Comprehensive Audiogram Completed 02/25/2011 26992 Binocular Microscopy Completed 02/22/2011 53121 Binocular Microscopy Completed 12/04/2010 02667 Removal Wax Impaction Completed Encounters Type Date Location Provider Dx Diagnosis Office Visit 12/05/2015 [place] Abel Gillespie H60.312 Diffuse otitis 10:45a 04/07/07 Bindu Aguila externa, left ear Office Visit 10/07/2011 [place] Abel Gillespie 389.18 Hearing Loss, 10:45a 04/07/07 Bindu Aguila Sensorineural/Com bined Types Office Visit 09/17/2011 [place] Abel Gillespie 388.2 Hearing Loss, 1:30p 04/07/07 Bindu Aguila Sudden/Unspecifie d 386.55 Hearing Loss, Unilateral Office 07/31/2011 [place],[facility] Jose M 388.2 Hearing Loss, Visit 3:30p 04/07/07 Brit 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
[2018-08-30 09:25] LABS: ABS Eosinophils 0.1 10^3/ul (0-0.6); ABS Lymphocytes 0.9 10^3/ul (1.0-4.8); ABS Monocytes 0.5 10^3/ul (0-0.8); ABS Neutrophils 4.9 10^3/ul (1.5-7.7); Eosinophil % 1.7 %; Hematocrit 42 % (35-47); Hemoglobin 13.5 g/dL (12.0-16.0); Lymphocyte % 14.5 %; Mean Corpuscular HGB Conc 33 g/dL (31-36); Mean Corpuscular Hemoglobin 29 pg (27-31); Mean Corpuscular Volume 89 fL (80-97); Mean Platelet Volume 8.6 fL (7.4-10.4); Nucleated Red Blood Cells % 0.1; Platelet Count 219 10^3/uL (150-450); Red Blood Count 4.67 10^6 /uL (3.70-4.87); Red Cell Distribution Width 16 % (10.5-15); White Blood Count 6.5 10^3/uL (3.5-10.8)
[2018-08-30 09:42] LABS: Albumin 3.7 g/dL (3.2-5.2); Albumin/Globulin Ratio 1.1 (1-3); BUN/Creatinine Ratio 20.6 (8-20); C Reactive Protein 12.73 mg/L (<8.01); Calcium 9.3 mg/dL (8.6-10.3); EGFR African American 44.5 (>60); EGFR Non-African American 36.8 (>60); Globulin 3.5 g/dL (2-4); Potassium 4.7 mmol/L (3.5-5.0); Total Bilirubin 0.5 mg/dL (0.2-1.0); Total Protein 7.2 g/dL (6.4-8.9)
[2018-08-30 10:01] LABS: Urine Appearance Turbid; Urine Bacteria 2+ (Absent); Urine Bilirubin Negative (Negative); Urine Blood 3+ (Negative); Urine Color Yellow; Urine Glucose Negative (Negative); Urine Ketones Negative (Negative); Urine Nitrite Positive (Negative); Urine Protein 2+(100 mg/dL) (Negative); Urine Red Blood Cell 3+(>10/hpf) (Absent); Urine Specific Gravity 1.015 (1.010-1.030); Urine Squamous Epithelial Cell Present (Absent); Urine Urobilinogen Negative (Negative); Urine White Blood Cell 3+(>20/hpf) (Absent)
[2018-08-30] MEDS ORDERED: cefTRIAXone(*) 2 GM in NS 0.9% 100 ML* 100 ML IVPB ONE (10:16)
--- NOTE | 2018-08-30 10:29 | ED ---
GI/ HPI - HPI Summary HPI Summary: A 72 y/o female presents to [facility] with a chief complaint of dysuria. The patient has been on abx for five days. Today she has N/V, diaphoresis and left lower back pain. The patient also reports loose BMs. At triage the patient rated her pain as a 3/10 in severity. The patient's reports that she has been hospitalized multiple times for the same problem and has had her uretal stent replaced. - History of Current Complaint Chief Complaint: EDUrogenitalProblems Time Seen by Provider: 08/30/18 08:58 Stated Complaint: POSSIBLE KIDNEY INFECTION Hx Obtained From: Patient, Family/Economic History Teacher Hx Last Menstrual Period: N/A Onset/Duration: Started Days Ago, Still Present Timing: Constant, Lasting Days Severity: Moderate Current Severity: Moderate Pain Intensity: 3 - out of 10 Location of Pain: Other - left lower back Pain Characteristics: Unable to describe Associated Signs and Symptoms: Positive: Nausea, Vomiting, Diaphoresis Aggravating Factor(s): Nothing Alleviating Factor(s): Nothing - Additional Pertinent History Primary Care Physician: YENNI - Allergy/Home Medications Allergies/Adverse Reactions: Allergies Allergy/AdvReac Type Severity Reaction Status Date / Time levofloxacin Allergy Severe Anaphylatic Verified 08/30/18 08:58 Shock nitrofurantoin Allergy Severe Hives/Diff. Verified 08/30/18 08:58 Breathing/I tching latex Allergy Intermediate Itching, Verified 08/30/18 08:58 breakout in little hives Sulfa (Sulfonamide Allergy Intermediate Hives Verified 08/30/18 08:58 Antibiotics) levothyroxine Allergy Rash And Verified 08/30/18 08:58 Itching Home Medications: Home Medications Apixaban [Eliquis] 5 mg PO BID 08/30/18 [History Confirmed 08/30/18] PMH/Surg Hx/FS Hx/Imm Hx Endocrine/Hematology History: Reports: Hx Diabetes - type 2- diet controlled, Hx Thyroid Disease - hypothyroidism Cardiovascular History: Reports: Hx Coronary Artery Disease, Hx Deep Vein Thrombosis, Hx Embolism - multiple PEs, Hx Hypercholesterolemia, Hx Hypertension , Hx Peripheral Vascular Disease, Other Cardiovascular Problems/Disorders - cardiac cath 2011 AND HIGH CHOLESTEROL AND A-FIB Denies: Hx Congestive Heart Failure Respiratory History: Reports: Hx Pulmonary Embolism - POST OP AFTER SHOULDER REPLACEMENT 2012, 2014 Denies: Hx Asthma, Hx Chronic Obstructive Pulmonary Disease (COPD) GI History: Denies: Hx Gall Bladder Disease - gall bladder removed, Hx Ulcer, Other GI Disorders History: Reports: Hx Kidney Infection, Hx Kidney Stones - left, Hx Renal Disease - LT URETERAL STRICTURE. LT STENT, Other Problems/Disorders - Kidney stones July 2011 Denies: Hx Dialysis Musculoskeletal History: Reports: Hx Arthritis - GENERAL, Other Musculoskeletal History - Bilateral knee replacements, R shoulder replacement, fractured R elbow Sensory History: Reports: Hx Cataracts, Hx Contacts or Glasses - glaqsses, Hx Glaucoma, Hx Legally Blind, Hx Vision Problem - Pt is legally blind, Hx Hearing Aid - bilat, Hx Hearing Problem, Other Sensory Impairments Opthamlomology History: Reports: Hx Cataracts, Hx Contacts or Glasses - glaqsses , Hx Glaucoma, Hx Legally Blind, Hx Vision Problem - Pt is legally blind, Other Sensory Impairments Neurological History: Reports: Hx Migraine - Hx of none recently, Hx Seizures - Hx of, none recently, last seizure 10 years ago, Other Neuro Impairments/ Disorders - Hx seizures, none recently Psychiatric History: Reports: Hx Autism, Hx Depression Denies: Hx Anxiety - Cancer History Hx Chemotherapy: No Hx Radiation Therapy: No - Surgical History Surgery Procedure, Year, and Place: Hysterectomy September 2014, 1970 R eye cataract removed, 1989 L eye cataract removed, bilateral knee replacements, R shoulder replacement, 2011 cholecystectomy, plate/screws in R elbow, kidney stone treatment x 3 august 09 3 kidney stones remover and litho. done on others bilaterly. D&C hysteroscopy versus point resection 2010 Hx Anesthesia Reactions: No Infectious Disease History: No Infectious Disease History: Denies: Hx Hepatitis, Hx Human Immunodeficiency Virus (HIV), Traveled Outside the [place] in Last 30 Days Comment Only: History Other Infectious Disease - kidney infection - Family History Known Family History: Positive: Cardiac Disease, Hypertension - Social History Alcohol Use: Rare Alcohol Amount: 3-4 PER YEAR Hx Substance Use: No Substance Use Type: Reports: None Hx Tobacco Use: No Smoking Status (MU): Never Smoked Tobacco Have You Smoked in the Last Year: No Review of Systems Positive: Skin Diaphoresis. Negative: Fever Positive: Vomiting, Nausea, Other - positive: loose BMs Positive: dysuria Positive: Myalgia - left back All Other Systems Reviewed And Are Negative: Yes Physical Exam - Summary Physical Exam Summary: VITAL SIGNS: Reviewed. GENERAL: Patient is an obese FEMALE who is lying comfortable in the stretcher. Patient is not in any acute respiratory distress. HEAD AND FACE: No signs of trauma. No ecchymosis, hematomas or skull depressions. No sinus tenderness. EYES: PERRLA, EOMI x 2, No injected conjunctiva, no nystagmus. EARS: Hearing grossly intact. Ear canals and tympanic membranes are within normal limits. MOUTH: Oropharynx within normal limits. NECK: Supple, trachea is midline, no adenopathy, no JVD, no carotid bruit, no c- spine tenderness, neck with full ROM. CHEST: Symmetric, no tenderness at palpation LUNGS: Clear to auscultation bilaterally. No wheezing or crackles. CVS: Regular rate and rhythm, S1 and S2 present, no murmurs or gallops appreciated. ABDOMEN: Soft, non-tender. No signs of distention. No rebound no guarding, and no masses palpated. Bowel sounds are normal. EXTREMITIES: FROM in all major joints, no edema, no cyanosis or clubbing. NEURO: Alert and oriented x 3. No acute neurological deficits. Speech is normal and follows commands. SKIN: Dry and warm. Triage Information Reviewed: Yes Vital Signs On Initial Exam: Initial Vitals Temp Pulse Resp BP Pulse Ox 97.9 F 76 18 165/68 96 08/30/18 08:53 08/30/18 08:53 08/30/18 08:53 08/30/18 08:53 08/30/18 08:53 Vital Signs Reviewed: Yes Diagnostics - Vital Signs Vital Signs Temp Pulse Resp BP Pulse Ox 08/30/18 08:53 97.9 F 76 18 165/68 96 - Laboratory Lab Results: Lab Results 08/30/18 08/30/18 08/30/18 Range/Units 09:17 09:17 09:17 WBC 6.5 (3.5-10.8) 10^3/uL RBC 4.67 (3.70-4.87) 10^6 /uL Hgb 13.5 (12.0-16.0) g/dL Hct 42 (35-47) % MCV 89 (80-97) fL MCH 29 (27-31) pg MCHC 33 (31-36) g/dL RDW 16 H (10.5-15) % Plt Count 219 (150-450) 10^3/uL MPV 8.6 (7.4-10.4) fL Neut % (Auto) 74.9 % Lymph % (Auto) 14.5 % [place] % (Auto) 8.3 % Eos % (Auto) 1.7 % Baso % (Auto) 0.6 % Absolute Neuts (auto) 4.9 (1.5-7.7) 10^3/ul Absolute Lymphs (auto) 0.9 L (1.0-4.8) 10^3/ul Absolute Monos (auto) 0.5 (0-0.8) 10^3/ul Absolute Eos (auto) 0.1 (0-0.6) 10^3/ul Absolute Basos (auto) 0.0 (0-0.2) 10^3/ul Absolute Nucleated RBC 0.0 10^3/ul Nucleated RBC % 0.1 Sodium 138 (135-145) mmol/L Potassium 4.7 (3.5-5.0) mmol/L Chloride 105 (101-111) mmol/L Carbon Dioxide 27 (22-32) mmol/L Anion Gap 6 (2-11) mmol/L BUN 29 H (6-24) mg/dL Creatinine 1.41 H (0.51-0.95) mg/dL Est GFR ( Amer) 44.5 (>60) Est GFR (Non-Af Amer) 36.8 (>60) BUN/Creatinine Ratio 20.6 H (8-20) Glucose 197 H (70-100) mg/dL Lactic Acid 1.6 (0.5-2.0) mmol/L Calcium 9.3 (8.6-10.3) mg/dL Total Bilirubin 0.50 (0.2-1.0) mg/dL AST 13 (13-39) U/L ALT 18 (7-52) U/L Alkaline Phosphatase 71 (34-104) U/L C-Reactive Protein 12.73 H (<8.01) mg/L Total Protein 7.2 (6.4-8.9) g/dL Albumin 3.7 (3.2-5.2) g/dL Globulin 3.5 (2-4) g/dL Albumin/Globulin Ratio 1.1 (1-3) Lipase 26 (11.0-82.0) U/L Urine Color Urine Appearance Urine pH (5-9) Ur Specific [place] (1.010-1.030) Urine Protein (Negative) Urine Ketones (Negative) Urine Blood (Negative) Urine Nitrate (Negative) Urine Bilirubin (Negative) Urine Urobilinogen (Negative) Ur Leukocyte Esterase (Negative) Urine WBC (Auto) (Absent) Urine RBC (Auto) (Absent) Ur Squamous Epith Cells (Absent) Urine Bacteria (Absent) Urine Glucose (Negative) 08/30/18 Range/Units 09:45 WBC (3.5-10.8) 10^3/uL RBC (3.70-4.87) 10^6 /uL Hgb (12.0-16.0) g/dL Hct (35-47) % MCV (80-97) fL MCH (27-31) pg MCHC (31-36) g/dL RDW (10.5-15) % Plt Count (150-450) 10^3/uL MPV (7.4-10.4) fL Neut % (Auto) % Lymph % (Auto) % [place] % (Auto) % Eos % (Auto) % Baso % (Auto) % Absolute Neuts (auto) (1.5-7.7) 10^3/ul Absolute Lymphs (auto) (1.0-4.8) 10^3/ul Absolute Monos (auto) (0-0.8) 10^3/ul Absolute Eos (auto) (0-0.6) 10^3/ul Absolute Basos (auto) (0-0.2) 10^3/ul Absolute Nucleated RBC 10^3/ul Nucleated RBC % Sodium (135-145) mmol/L Potassium (3.5-5.0) mmol/L Chloride (101-111) mmol/L Carbon Dioxide (22-32) mmol/L Anion Gap (2-11) mmol/L BUN (6-24) mg/dL Creatinine (0.51-0.95) mg/dL Est GFR ( Amer) (>60) Est GFR (Non-Af Amer) (>60) BUN/Creatinine Ratio (8-20) Glucose (70-100) mg/dL Lactic Acid (0.5-2.0) mmol/L Calcium (8.6-10.3) mg/dL Total Bilirubin (0.2-1.0) mg/dL AST (13-39) U/L ALT (7-52) U/L Alkaline Phosphatase (34-104) U/L C-Reactive Protein (<8.01) mg/L Total Protein (6.4-8.9) g/dL Albumin (3.2-5.2) g/dL Globulin (2-4) g/dL Albumin/Globulin Ratio (1-3) Lipase (11.0-82.0) U/L Urine Color Yellow Urine Appearance Turbid Urine pH 6.0 (5-9) Ur Specific [place] 1.015 (1.010-1.030) Urine Protein 2+(100 mg/dl) A (Negative) Urine Ketones Negative (Negative) Urine Blood 3+ A (Negative) Urine Nitrate Positive A (Negative) Urine Bilirubin Negative (Negative) Urine Urobilinogen Negative (Negative) Ur Leukocyte Esterase 3+ A (Negative) Urine WBC (Auto) 3+(>20/hpf) A (Absent) Urine RBC (Auto) 3+(>10/hpf) A (Absent) Ur Squamous Epith Cells Present A (Absent) Urine Bacteria 2+ A (Absent) Urine Glucose Negative (Negative) Result Diagrams: 08/30/18 09:17 08/30/18 09:17 Lab Statement: Any lab studies that have been ordered have been reviewed, and results considered in the medical decision making process. - Radiology abdomen x-ray Radiology Interpretation Completed By: Radiologist Summary of Radiographic Findings: LEFT ureteral stent in place. ED physician has reviewed this imaging report. GIGU Course/Dx - Course Assessment/Plan: A 72 y/o female presents to [facility] with a chief complaint of dysuria. The patient has been on abx for five days. Today she has N/V, diaphoresis and left lower back pain. The patient also reports loose BMs. At triage the patient rated her pain as a 3/10 in severity. The patient's reports that she has been hospitalized multiple times for the same problem. Blood test results without any significant abnormality except for BUN of 29, creatinine 1.41, glucose 197, CRP is 12.7, urinalysis has 2+ protein, 3+ blood, positive nitrates, 3 loss leukocytes, WBCs of 3+, RBCs are 3+, bacteria 2+. Squamous epithelial cells present. Patient was given 1 dose of Rocephin 2 g IV. The patient also was given IV fluids. Dr. Tripp from Urology came and assessed the patient and recommended patient to be discharged home and F/U with his office on Friday. I discussed all the findings and test results with the patient. Patient was instructed to return to the emergency room immediately if any of the symptoms return worsens. Plan of care was discussed with the patient and she understands and agrees. All questions were answered at patient satisfaction. There were no further complaints or concerns. Lung exam before discharge: CTA B/L. Good air exchange. No wheezing or crackles heard. CVS: S1 and S2 present. No murmurs appreciated. Patient is alert and oriented x 3. Patient is hemodynamically stable. Patient will be discharged home with follow up PCP in the next 2-3 days. - Diagnoses Provider Diagnoses: UTI (urinary tract infection) - Physician Notifications Discussed Care Of Patient With: Min Tripp Time Discussed With Above Provider: 12:49 Instructed by Provider To: MD Will See In ED - recommended discharge Discharge - Sign-Out/Discharge Documenting (check all that apply): Patient Departure - DC Patient Received Moderate/Deep Sedation with Procedure: No - Discharge Plan Condition: Stable Disposition: HOME Patient Education Materials: Urinary Tract Infection in Women (DC) Referrals: Popeye Rojo MD [Primary Care Provider] - (3 days) Additional Instructions: FOLLOW UP WITH YOUR PRIMARY CARE PROVIDER WITHIN ONE WEEK. RETURN TO THE ED FOR ANY WORSENING OR NEW SYMPTOMS. - Billing Disposition and Condition Condition: STABLE Disposition: Home - Attestation Statements Document Initiated by Irwin: Yes Documenting Scribe: Emiliano Aguilar Provider For Whom Irwin is Documenting (Include Credential): Gerson Vital MD Scribe Attestation: I, Emiliano Aguilar, scribed for Gerson Vital MD on 08/31/18 at 1544. Scribe Documentation Reviewed: Yes Provider Attestation: The documentation as recorded by the Emiliano whyte accurately reflects the service I personally performed and the decisions made by me, Gerson Vital MD Status of Scribe Document: Viewed
[2018-08-30 13:08] VITALS: BP 158/90
--- NOTE | 2018-09-03 15:39 | PN ---
Progress Note - Progress Note Date of Service: 08/30/18 Note: Pt. seen in ED 08/30 and dx with UTI. She was given IV rocephin. Urine culture today growing >100k enterobacter hormaechei. I called and spoke with pt. today at 0795. Pt. states that her urologist, Dr. Osborn, called in doxycycline which she has started. No change in treatment needed.
== END 2018-08-30 13:22 | disposition home or self-care (01) ==
LOC: ED 08:51
DX: N39.0 Urinary tract infection, site not specified (principal); R11.2 Nausea with vomiting, unspecified; R61 Generalized hyperhidrosis; Z88.2 Allergy status to sulfonamides; E11.9 Type 2 diabetes mellitus without complications; I25.10 Atherosclerotic heart disease of native coronary artery without angina pectoris; Z86.718 Personal history of other venous thrombosis and embolism; I10 Essential (primary) hypertension; I73.9 Peripheral vascular disease, unspecified; Z79.01 Long term (current) use of anticoagulants; Z87.442 Personal history of urinary calculi
CPT/HCPCS: 36415; 74018; 80053; 81003; 81015; 83605; 83690; 85025; 86140; 87040; 87077; 87086; 87184; 87186; 96365; 99283; J0696

== ENCOUNTER 2018-09-07 10:25 | Day surgery (SDC) | payer MEDICARE ==
--- NOTE | 2018-09-03 09:23 | HP ---
HISTORY AND PHYSICAL: DATE OF PLANNED ADMISSION AND SURGERY: 09/07/18 HISTORY OF PRESENT ILLNESS: Mrs. Zhao is a 72-year-old white female who is admitted with left hydronephrosis, status post placement left ureteral stent for cystoscopy, left retrograde pyelography and left ureteral stent exchange. This is one of multiple admissions of this patient who has history of recurrent renal calculi. The right renal calculi were all treated and has been stone free on the right. 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 The ureteral strictures did not respond to balloon dilations and the patient has been managed with chronic left ureteral stent. She is also known to have 2 small nonobstructing left renal calculi measuring about 6 mm each. The patient also has had recurrent episodes of urinary tract infections, some of them were due to multiresistant organisms. Her left ureteral stent was last replaced about 4 months ago. The patient presented to the emergency room recently because of low-grade fever and mild left flank pain. She was not septic. She was treated as an outpatient. Her urine culture grew enterobacter, that considering the patient's multiple allergies to antibiotics, that could be treated orally with tetracycline. The patient has been maintained on doxycycline 100 mg twice a day. The patient has been doing well. She is admitted now for left ureteral stent exchange. PAST MEDICAL HISTORY AND SYSTEM REVIEW: The patient is legally blind since childhood. She is morbidly obese. She has history of deep vein thrombosis and has been maintained on chronic anticoagulation with warfarin. She has hypothyroidism, decreased renal function, borderline diabetes mellitus. She also has history of mitral regurgitation and hypertension. PAST SURGICAL HISTORY: Includes cholecystectomy, hysterectomy, bilateral knee replacement, right total shoulder arthroplasty, right elbow ORIF. MEDICATIONS: The patient is maintained on the following medications: 1. Atenolol 50 mg daily. 2. Warfarin 10 mg at bedtime. 3. Fluoxetine 40 mg daily. 4. Potassium citrate 15 mEq twice a day (for stone prevention). 5. Levothyroxine 50 mcg daily. 6. Multivitamin 1 tablet daily. 7. Doxycycline 100 mg twice a day. ALLERGIES: The patient has multiple allergies including QUINOLONES, SULFA, NITROFURANTOIN, LATEX. FAMILY HISTORY: Relevant for diabetes and leukemia in her father. SOCIAL HISTORY: The patient is a nonsmoker and does not use alcohol or drugs. PHYSICAL EXAMINATION GENERAL: When evaluated in the emergency room, she is morbidly obese white female. VITAL SIGNS: Blood pressure 140/80, heart rate 80. LUNGS: Clear. HEART: Regular and rhythmic. No murmurs. ABDOMEN: Soft. No masses, no tenderness with mild left CVA tenderness. EXTREMITIES: She has bilateral leg edema. IMPRESSION: 1. Left hydronephrosis secondary to left ureteral strictures managed with chronic left ureteral stent. 2. Recurrent episodes of urinary tract infections. 3. Nonobstructing asymptomatic small left renal calculi. 4. History of DVT on chronic anticoagulation with Coumadin. PLAN: The plan is for cystoscopy and left ureteral stent exchange. I discussed the above plans with the patient and her and their questions were answered. [id number]/CPS #: [id number] ANTHONY
[~2018-09-07 10:25] MED LIST changes: +Gentamicin ADULT (*) 160 MG in NS 0.9% 100 ML* 100 ML IVPB ONE; +Lactated Ringers 1000 ML Bag* 1,000 ML IV SCH
[2018-09-07] MEDS ORDERED: Buffered Lidocaine 1% SYRIN* 1 ML/SYRINGE INTRADERM ONE (10:42)
[2018-09-07] MEDS ORDERED: Propofol* 10 MG/ML 20 ML BTL ONE (12:17)
[2018-09-07] MEDS ORDERED: Lidocaine 2% PF * 5 ML VIAL ONE ×2 (12:17→12:49)
[2018-09-07] MEDS ORDERED: Dexamethasone IV* 4 MG/ML 1 ML (4 MG) ONE (12:17)
[2018-09-07] MEDS ORDERED: Midazolam* 1 MG/ML 2 ML VIAL (2 MG) ONE (12:17)
[2018-09-07] MEDS ORDERED: fentaNYL* 50 MCG/ML 2 ML VIAL (100 MCG VIAL) ONE (12:17)
[2018-09-07] MEDS ORDERED: Ondansetron INJ* 2 MG/ML VIAL ONE (12:17)
[2018-09-07] MEDS ORDERED: Famotidine IV* 10 MG/ML 2 ML (20 mg) ONE (12:20)
[2018-09-07] MEDS ORDERED: Acetaminophen TAB* 325 MG PO PRN (12:36)
[2018-09-07] MEDS ORDERED: Naloxone* 0.4 MG/ML 1 ML VIAL IV PRN (12:36)
[2018-09-07] MEDS ORDERED: Ondansetron INJ* 2 MG/ML VIAL IV PRN (12:36)
[2018-09-07] MEDS ORDERED: fentaNYL* 50 MCG/ML 2 ML VIAL (100 MCG VIAL) IV PRN (12:36)
[2018-09-07] MEDS ORDERED: Levalbuterol 0.63MG/3ML NEB* UNIT OF USE INH PRN (12:36)
[2018-09-07] MEDS ORDERED: DiMENhydriNATE IV* 50 MG/ML VIAL IV PUSH PRN (12:36)
[2018-09-07] MEDS ORDERED: diPHENhydraMINE IV* 50 MG/ML 1 ml VIAL (BENADRYL) IV PRN (12:36)
[2018-09-07] MEDS ORDERED: EPHEDrine (Pressors)* 50 MG/ML VIAL ONE (13:04)
[2018-09-07] MEDS ORDERED: Iohexol 180 (CONTRAST) 10 ML SDV IV ONE (14:10)
[2018-09-07 14:48] VITALS: BP 150/77
--- NOTE | 2018-09-07 20:03 | OP ---
DATE OF OPERATION: 09/07/18 [facility] DATE OF : 47 SURGEON: Agustin Osborn MD ANESTHESIOLOGIST: Dr. Gurwinder Huerta. ANESTHESIA: General. PRE-OP DIAGNOSES: 1. Left hydronephrosis. 2. Status post placement of left ureteral stent. 3. Urinary tract infection. POST-OP DIAGNOSES: 1. Left hydronephrosis. 2. Status post placement of left ureteral stent. 3. Urinary tract infection. OPERATIVE PROCEDURE: 1. Cystoscopy. 2. Left retrograde pyelography. 3. Left ureteral stent exchange (black silicone, 8.5-British, 24 cm). INDICATION FOR PROCEDURE: Ms. Zhao is a 72-year-old female who developed right ureteral stricture secondary to left retroperitoneal hematoma with resultant scarring. She had been managed with a chronic left ureteral stent drainage. The stent was last replaced about 4 months ago. She recently developed symptoms of urinary tract infection and has been on doxycycline for treatment. The patient is now admitted for stent exchange. PATHOLOGY: At cystoscopy, the bladder mucosa showed hyperemia consistent with cystitis. The distal limb of the stent was seen coming from the left ureteral orifice. There was mucus adherent to the stent. Left retrograde pyelography showed no hydronephrosis. DESCRIPTION OF PROCEDURE: After successful general anesthesia, the patient was placed in the lithotomy position and was prepped and draped for a cystoscopy. Cystoscopy was performed, the bladder was carefully inspected and the above findings were noted. The distal limb of the stent was pulled out to the level of the urethral meatus. A flexible-tip guidewire was then introduced into the lumen of the stent and positioned in the area of the renal pelvis. Retrograde pyelography was then performed. A black silicone stent, 24 cm long, 8.5-British was then placed with the proximal end coiling in the renal pelvis and the distal end coiling inside the bladder. There was good drainage of contrast from the kidney. The patient tolerated the procedure well and left the operating room in good condition. [id number]/CPS #: [id number] MTDD
== END 2018-09-07 15:15 | disposition home or self-care (01) ==
LOC: OR 10:25
PROVIDERS: ATTEND Urology
DX: N13.6 Pyonephrosis (principal); Z87.442 Personal history of urinary calculi; Z86.718 Personal history of other venous thrombosis and embolism; Z79.01 Long term (current) use of anticoagulants; E03.9 Hypothyroidism, unspecified; R73.03 Prediabetes; E66.01 Morbid (severe) obesity due to excess calories; Z68.43 Body mass index [BMI] 50.0-59.9, adult
CPT/HCPCS: 74420; C1876; J1100; J1580; J2250; J2405; J2704; J3010

== ENCOUNTER 2018-10-18 07:21 | Inpatient (IN) | payer MEDICARE ==
[2018-10-18] MEDS ORDERED: Ondansetron INJ* 2 MG/ML VIAL IV ONE (08:09)
[2018-10-18] MEDS ORDERED: Morphine 4 MG/ML VIAL (1 ml) 4 MG/ML VIAL IV ONE ×2 (08:09→10:48)
[2018-10-18 08:24] LABS: Urine Appearance Turbid; Urine Bacteria Absent (Absent); Urine Bilirubin Negative (Negative); Urine Blood 2+ (Negative); Urine Color Yellow; Urine Glucose 1+(50 mg/dL) (Negative); Urine Ketones Negative (Negative); Urine Nitrite Positive (Negative); Urine Protein 1+(30 mg/dL) (Negative); Urine Red Blood Cell 3+(>10/hpf) (Absent); Urine Specific Gravity 1.018 (1.010-1.030); Urine Squamous Epithelial Cell Present (Absent); Urine Urobilinogen Negative (Negative); Urine White Blood Cell 3+(>20/hpf) (Absent)
[2018-10-18 08:55] LABS: ABS Basophils 0.1 10^3/ul (0-0.2); ABS Eosinophils 0.1 10^3/ul (0-0.6); ABS Lymphocytes 0.7 10^3/ul (1.0-4.8); ABS Monocytes 0.9 10^3/ul (0-0.8); ABS Neutrophils 9.7 10^3/ul (1.5-7.7); Eosinophil % 0.6 %; Hematocrit 41 % (35-47); Hemoglobin 13.6 g/dL (12.0-16.0); Mean Corpuscular HGB Conc 33 g/dL (31-36); Mean Corpuscular Hemoglobin 30 pg (27-31); Mean Corpuscular Volume 89 fL (80-97); Mean Platelet Volume 8.2 fL (7.4-10.4); Nucleated Red Blood Cells % 0.1; Platelet Count 243 10^3/uL (150-450); Red Blood Count 4.62 10^6 /uL (3.70-4.87); Red Cell Distribution Width 16 % (10-15); White Blood Count 11.4 10^3/uL (3.5-10.8)
--- NOTE | 2018-10-18 09:05 | ED ---
GI/ HPI - HPI Summary HPI Summary: Patient presents with acute left flank pain that started at 4 AM this morning. She has associated symptoms of nausea with pain which is 7 out of 10 at best and 10 over 10 at its worst, colicky. She is also had difficulty urinating until arrival here where she was able to provide some urine. Has had pain radiating from left flank around into her abdomen. Has tried ibuprofen and Tylenol home without relief. Denies gross hematuria, fever, chills, chest pain , shortness of breath, headache, vomiting, diarrhea. She has a history of nephrolithiasis and had a stent placed last month with Dr. Osborn. Follow up scheduled for November. Furthermore patient has been repeat she has had multiple stents placed for scarring in her ureter here. She has also has a history of sepsis due to pyelonephritis. - History of Current Complaint Chief Complaint: EDFlankPain Time Seen by Provider: 10/18/18 07:34 Stated Complaint: POSS KIDNEY STONE PER PATIENT Hx Obtained From: Patient, Family/Customer Relations Coordinator - male education adviser Hx Last Menstrual Period: N/A Pain Intensity: 10 - Additional Pertinent History Primary Care Physician: YENNI - Allergy/Home Medications Allergies/Adverse Reactions: Allergies Allergy/AdvReac Type Severity Reaction Status Date / Time levofloxacin Allergy Severe Anaphylatic Verified 10/18/18 07:27 Shock nitrofurantoin Allergy Severe Hives/Diff. Verified 10/18/18 07:27 Breathing/I tching latex Allergy Intermediate Itching, Verified 10/18/18 07:27 breakout in little hives Sulfa (Sulfonamide Allergy Intermediate Hives Verified 10/18/18 07:27 Antibiotics) levothyroxine Allergy Rash And Verified 10/18/18 07:27 Itching Home Medications: Home Medications Levothyroxine Sodium [Synthroid] 50 mcg PO DAILY 10/18/18 [History Confirmed ] Omeprazole 20 mg PO DAILY 10/18/18 [History Confirmed 10/18/18] Sodium Chloride 5% OPTH.PEEWEE* [Karolina 128 Opth 5% OPTH.SOLl*] 1 drop .SEE ORDER SEE INSTRUCTIONS PRN 10/18/18 [History Confirmed 10/18/18] PMH/Surg Hx/FS Hx/Imm Hx Previously Healthy: Yes Endocrine/Hematology History: Reports: Hx Anticoagulant Therapy - eliquis and ASA, Hx Diabetes - type 2- diet controlled, Hx Thyroid Disease - hypothyroidism- ON SYNTHROID Cardiovascular History: Reports: Hx Coronary Artery Disease, Hx Deep Vein Thrombosis, Hx Embolism - multiple PEs, Hx Hypercholesterolemia, Hx Hypertension - ON MEDICATION FOR, Hx Peripheral Vascular Disease Denies: Hx Congestive Heart Failure, Other Cardiovascular Problems/Disorders Respiratory History: Reports: Hx Pulmonary Embolism - POST OP AFTER SHOULDER REPLACEMENT 2012, 2014 Denies: Hx Asthma, Hx Chronic Obstructive Pulmonary Disease (COPD), Other Respiratory Problems/Disorders GI History: Denies: Hx Gall Bladder Disease - gall bladder removed, Hx Ulcer, Other GI Disorders History: Reports: Hx Kidney Infection - HX OF-, Hx Kidney Stones - left-HX OF AND CURRENTLY, Hx Renal Disease - LT URETERAL STRICTURE. LT STENT Denies: Hx Dialysis, Other Problems/Disorders Musculoskeletal History: Reports: Hx Arthritis - GENERAL, Other Musculoskeletal History - Bilateral knee replacements, R shoulder replacement, fractured R elbow Sensory History: Reports: Hx Cataracts - BILATERAL, Hx Contacts or Glasses - glasses, Hx Glaucoma - BILATERAL, Hx Legally Blind, Hx Vision Problem - Pt is legally blind, Hx Hearing Aid - bilat, Hx Hearing Problem, Other Sensory Impairments Opthamlomology History: Reports: Hx Cataracts - BILATERAL, Hx Contacts or Glasses - glasses, Hx Glaucoma - BILATERAL, Hx Legally Blind, Hx Vision Problem - Pt is legally blind, Other Sensory Impairments Neurological History: Reports: Hx Migraine - Hx of none recently, Hx Seizures - Hx of- last seizure 10 years ago Denies: Other Neuro Impairments/Disorders Psychiatric History: Reports: Hx Autism, Hx Depression - ON MEDICATION FOR Denies: Hx Anxiety - Cancer History Hx Chemotherapy: No Hx Radiation Therapy: No - Surgical History Surgery Procedure, Year, and Place: Hysterectomy September 2014, 1970 R eye cataract removed, 1989 L eye cataract removed, bilateral knee replacements, R shoulder replacement, 2011 cholecystectomy, plate/screws in R elbow, kidney stone treatment x 3 august 09 3 kidney stones remover and litho. done on others bilaterly. D&C hysteroscopy versus point resection 2010 Hx Anesthesia Reactions: No Infectious Disease History: No Infectious Disease History: Denies: Hx Hepatitis, Hx Human Immunodeficiency Virus (HIV), Traveled Outside the [place] in Last 30 Days Comment Only: History Other Infectious Disease - kidney infection - Family History Known Family History: Positive: Cardiac Disease, Hypertension - Social History Alcohol Use: Rare Alcohol Amount: 3-4 PER YEAR Hx Substance Use: No Substance Use Type: Reports: None Hx Tobacco Use: No Smoking Status (MU): Never Smoked Tobacco Have You Smoked in the Last Year: No Review of Systems Constitutional: Negative Negative: Fever, Chills, Fatigue Eyes: Negative ENT: Negative Cardiovascular: Negative Respiratory: Negative Positive: Abdominal Pain, Nausea. Negative: Vomiting Positive: see HPI Musculoskeletal: Negative Skin: Negative Neurological: Negative Psychological: Normal All Other Systems Reviewed And Are Negative: Yes Physical Exam Vital Signs On Initial Exam: Initial Vitals Temp Pulse Resp BP Pulse Ox 98.1 F 82 18 151/69 95 10/18/18 07:21 10/18/18 07:21 10/18/18 07:21 10/18/18 07:21 10/18/18 07:21 Diagnostics - Vital Signs Vital Signs Temp Pulse Resp BP Pulse Ox 10/18/18 08:40 20 10/18/18 07:21 98.1 F 82 18 151/69 95 - Laboratory Lab Results: Lab Results 10/18/18 10/18/18 Range/Units 07:44 08:41 WBC 11.4 H (3.5-10.8) 10^3/uL RBC 4.62 (3.70-4.87) 10^6 /uL Hgb 13.6 (12.0-16.0) g/dL Hct 41 (35-47) % MCV 89 (80-97) fL MCH 30 (27-31) pg MCHC 33 (31-36) g/dL RDW 16 H (10-15) % Plt Count 243 (150-450) 10^3/uL MPV 8.2 (7.4-10.4) fL Neut % (Auto) 84.9 % Lymph % (Auto) 6.0 % [place] % (Auto) 8.0 % Eos % (Auto) 0.6 % Baso % (Auto) 0.5 % Absolute Neuts (auto) 9.7 H (1.5-7.7) 10^3/ul Absolute Lymphs (auto) 0.7 L (1.0-4.8) 10^3/ul Absolute Monos (auto) 0.9 H (0-0.8) 10^3/ul Absolute Eos (auto) 0.1 (0-0.6) 10^3/ul Absolute Basos (auto) 0.1 (0-0.2) 10^3/ul Absolute Nucleated RBC 0.0 10^3/ul Nucleated RBC % 0.1 Urine Color Yellow Urine Appearance Turbid Urine pH 5.0 (5-9) Ur Specific [place] 1.018 (1.010-1.030) Urine Protein 1+(30 mg/dl) A (Negative) Urine Ketones Negative (Negative) Urine Blood 2+ A (Negative) Urine Nitrate Positive A (Negative) Urine Bilirubin Negative (Negative) Urine Urobilinogen Negative (Negative) Ur Leukocyte Esterase 3+ A (Negative) Urine WBC (Auto) 3+(>20/hpf) A (Absent) Urine RBC (Auto) 3+(>10/hpf) A (Absent) Ur Squamous Epith Cells Present A (Absent) Urine Bacteria Absent (Absent) Urine Glucose 1+(50 mg/dl) A (Negative) Result Diagrams: 10/18/18 08:41 10/18/18 08:41 Lab Statement: Any lab studies that have been ordered have been reviewed, and results considered in the medical decision making process. Re-Evaluation - Re-Evaluation First Eval Change: Improved - pain improved from 7/10 at best, 10/10 at worse to 5/10 GIGU Course/Dx - Course Course Of Treatment: CBC: elevated WBC and neut's. CRP elevated. U/A + nit, + blood, + protein, + leuks', etc. KUB: Lt kidney stone. U/S: Lt hydronephrosis. H/o ceftriaxone resistance (micro report from 08/2018) and allergies to fluoroquinolones - will start meropenem and vanco. Discussed vanco dosing w/ pharmacist d/t pt's weight and weight based dosing (2 grams fine). Spoke w/ Dr. Tripp who will round today - agrees w/ anbx regimen and admit to hospital service. *If no worsening of infection today (ie. afebrile, etc), will tx with anbx 12-24 hrs prior to stent replacement. *If worsening of infection today, will perform procedure today. Spoke w/ Dr. Azar who will admit. - Diagnoses Provider Diagnoses: Hydronephrosis, left, Urinary (tract) obstruction, Urinary tract infection, Left nephrolithiasis Discharge - Sign-Out/Discharge Documenting (check all that apply): Patient Departure Patient Received Moderate/Deep Sedation with Procedure: No - Discharge Plan Condition: Stable Disposition: ADMITTED TO [facility] - Billing Disposition and Condition Condition: STABLE Disposition: Admitted to [facility]
[2018-10-18] MEDS ORDERED: Vancomycin(*) 2,000 MG in NS 0.9% 250 ML* 250 ML IVPB ONE (09:16)
[2018-10-18 09:19] LABS: Albumin 3.8 g/dL (3.2-5.2); BUN/Creatinine Ratio 24.7 (8-20); C Reactive Protein 19.87 mg/L (<8.01); Calcium 9.4 mg/dL (8.6-10.3); EGFR African American 42.7 (>60); EGFR Non-African American 35.3 (>60); Globulin 3.8 g/dL (2-4); Potassium 4.5 mmol/L (3.5-5.0); Total Bilirubin 0.5 mg/dL (0.2-1.0); Total Protein 7.6 g/dL (6.4-8.9)
[2018-10-18] MEDS ORDERED: Vancomycin(*) 2,000 MG in NS 0.9% 500 ML* 500 ML IVPB ONE (09:30)
[2018-10-18] MEDS: Vancomycin(*) 1,000 MG - ED ONCE IVPB SCH ×4 (09:37→11:17)
[2018-10-18] MEDS ORDERED: NS 0.9% 1000 ML** 1,000 ML IV SCH (10:00)
[2018-10-18] MEDS ORDERED: Meropenem 1 GM PREMIX(*) 1 GM/50 ML BAG IV SCH (10:00)
[2018-10-18] MEDS ORDERED: Acetaminophen TAB* 325 MG PO PRN (10:00)
[2018-10-18] MEDS ORDERED: Morphine INJ* 2 MG/ML 1 ML SYRINGE (TWO MG - NEW SYRINGE VERSION) IV PRN (10:00)
[2018-10-18] MEDS ORDERED: Artificial Tears* 15 ML BTL BOTH EYES PRN (10:54)
[2018-10-18] MEDS ORDERED: Ondansetron INJ* 2 MG/ML VIAL IV PRN ×2 (11:09→17:11)
[2018-10-18] MEDS ORDERED: Dextrose 50% Syringe 50 ML* 25 GM/50 ML SYRINGE IV PUSH PRN (11:30)
[2018-10-18] MEDS: Insulin LISPRO* 1 UNITS UNIT SUBCUT SCH ×2 (14:04→19:21)
[2018-10-18] MEDS: Meropenem 1 GM PREMIX(*) 1 GM/50 ML BAG IV SCH ×2 (14:07→23:15)
[2018-10-18] MEDS ORDERED: Lidocaine 2% JELLY* 20 ML (for OR use) ONE (15:25)
[2018-10-18] MEDS ORDERED: Iohexol 180 (CONTRAST) 10 ML SDV IV ONE (15:25)
[2018-10-18] MEDS ORDERED: Propofol* 10 MG/ML 20 ML BTL ONE (15:30)
[2018-10-18] MEDS ORDERED: Dexamethasone IV* 4 MG/ML 1 ML (4 MG) ONE (15:30)
[2018-10-18] MEDS ORDERED: Ondansetron INJ* 2 MG/ML VIAL ONE (15:30)
[2018-10-18] MEDS ORDERED: Lidocaine 2% PF * 5 ML VIAL ONE (15:30)
[2018-10-18] MEDS ORDERED: Midazolam* 1 MG/ML 5 ML VIAL (5 MG) ONE (15:30)
[2018-10-18] MEDS ORDERED: fentaNYL* 50 MCG/ML 2 ML VIAL (100 MCG VIAL) ONE (15:30)
--- NOTE | 2018-10-18 16:30 | HP ---
CC: Dr. Popeye Rojo; Dr. Aby Balbuena; Dr. Min Tripp * ADMISSION HISTORY AND PHYSICAL: DATE OF ADMISSION: 10/18/18 PRIMARY CARE DOCTOR: Popeye Rojo MD. OUTPATIENT ORGANIZATION DEVELOPMENT CONSULTANT: Aby Balbuena MD. CONSULTING UROLOGIST: Min Tripp MD. MY ATTENDING PHYSICIAN WHILE IN HOSPITAL: Dr. Ashley Azar.* (DICTATED BY KINGS CARPIO) CHIEF COMPLAINT: Severe flank pain x7 hours. HISTORY OF PRESENT ILLNESS: Ms. Zhao is a 72-year-old female with a very extensive past medical history significant for numerous episodes of nephrolithiasis requiring stenting and stent placement, chronic kidney disease, coronary artery disease, with known 90% to 100% stenosis of the left circumflex artery, diabetes mellitus type 2, who presents to the emergency department after waking up at approximately 4 a.m. with severe left-sided flank pain, radiating into the front of her abdomen, with associated chills and nausea, without vomiting. The patient, since that time, has been urinating, but has significant pain with urination. The patient denies urinary frequency. The patient denies callum fevers. The patient, before this, was feeling in her normal state of health. The patient had not lost or gained any weight that she knows of, recently. The patient states that it feels very similar to her previous episodes of pain. The patient was brought emergently to the emergency department. The patient had recently been on a trip to [place], which required a 5-hour car trip each way. The patient has not had any other long episodes of immobility. The patient has had 3 different blood clots, but has not missed any doses of her Eliquis. The patient has asymmetrical swelling of her legs, the left more than the right, which is at its baseline, as well as dermatitis of both legs, which is also at baseline. The patient, in the emergency department, had an abdominal x-ray, which showed nephrolithiasis on the left side, and a renal ultrasound, which showed hydronephrosis on the left side as well. In the emergency department the patient complained of intermittent bursts of chest pain associated with slight shortness of breath, which lasted several seconds to a minute at a time. The patient was given morphine for her back pain and this also relieved her chest pain. The patient denies diaphoresis. The patient has never had an VT in the past. Due to the concern for urinary obstruction with UTI, we were asked to evaluate the patient for admission to the hospital. The patient most recently had antibiotics on 09/07/18 with a UTI and stent replacement. PAST MEDICAL HISTORY: Recurrent nephrolithiasis with multiple stents placed, obesity, mitral valve regurgitation, diabetes mellitus type 2, reported to be diet controlled, severe coronary artery disease, 89% stenosis of the left circumflex artery, depression, hypothyroidism, blindness, chronic kidney disease , retroperitoneal fibrosis, multiple DVTs, and PEs. PAST SURGICAL HISTORY: Bilateral knee replacements, cholecystectomy, hysterectomy, cataract surgery, multiple urinary stent placements and removal, ORIF of right arm, right shoulder arthroplasty, cataract surgery. MEDICATIONS: 1. Alphagan 1 drop to both eyes daily. 2. Karolina 128 to both eyes as needed . 3. Atenolol 50 mg p.o. daily. 4. Atorvastatin 20 mg p.o. daily. 5. Aspirin 81 mg p.o. daily. 6. Women's One A Day vitamin 7. Synthroid 50 mcg p.o. daily. 8. Bumex 2 mg p.o. daily. 9. Eliquis 5 mg p.o. twice daily. 10. Fluoxetine 40 mg p.o. daily. 11. Urocit-K 15 mEq 2 times a day. ALLERGIES: LATEX causes itching and rash, SULFA causes hives, LEVAQUIN caused anaphylactic shock, GENERIC LEVOTHYROXINE causes rash and itching, NITROFURANTOIN cause difficulty in breathing, hives and itching. FAMILY HISTORY: The patient's mother has dementia, COPD, and had a history of cancer on her leg, unknown type, but is still alive. The patient's father is of lymphoma, and had diabetes. The patient has a sister with uterine cancer and another sister who is healthy. SOCIAL HISTORY: The patient never smoked. The patient drinks alcohol rarely. The patient denies illicit drug use. 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 The patient is and has 2 daughters. The patient's surrogate decision maker will be her , Bernabe. REVIEW OF SYSTEMS: A 14-point review of systems was reviewed and is negative, except as above in the HPI. PHYSICAL EXAMINATION GENERAL: The patient is a 72-year-old female, who appears stated age, is sitting in the bed, in significant pain. VITAL SIGNS: Temperature 98.1, pulse rate 75, respiratory rate 20, oxygen saturation 93% on room air, blood pressure 158/80. HEENT: Head: Normocephalic, atraumatic. Sclerae anicteric. No conjunctival injection. Nasal mucosa moist. Oral mucosa moist. No pharyngeal erythema, discharge or exudate. NECK: Supple, nontender. No lymphadenopathy. No carotid bruit auscultated. No JVD. RESPIRATORY: Clear to auscultation bilaterally. No wheezes, rales or rhonchi. Good air exchange bilaterally. HEART: Regular rate and rhythm. No clicks, murmurs, gallops or rubs. Pulses are 2+ in the dorsalis pedis, posterior tibialis, and radial areas in the bilateral lower extremities. Edema 2+ on the left, 1+ on the right, findings consistent with venous stasis dermatitis. ABDOMEN: Soft, tender with deep palpation on the left side. No rebound or guarding. Bowel sounds present in all 4 quadrants. No hepatosplenomegaly. No abdominal bruits auscultated. No hepatojugular reflux. GENITOURINARY: No suprapubic tenderness. Significant left-sided CVA tenderness. SKIN: Above findings. No other rashes or ulcers. NEURO: Cranial nerves II through XII are intact. No focal felicities. Alert and oriented x3. PSYCHIATRIC: Pleasant and cooperative. DIAGNOSTIC STUDIES/LAB DATA: White blood cell count 11.4, hemoglobin 13.6, platelet count 243. Sodium 138, potassium 4.5, chloride 105, carbon dioxide 26 , anion gap 7, creatinine 1.46, glucose 238, lactic acid 1.8, calcium 9.4, bilirubin 0.5, AST 14, ALT 20, alkaline phosphatase 81. CRP 19.87, protein 7.6 , albumin 3.8, globulin 3.8. Urine: Yellow, turbid, 1+ protein, 2+ blood, positive nitrites, 2+ leukocyte esterase, 2+ white blood cells, absent bacteria , positive red blood cells. Studies: Abdominal x-ray read as left nephrolithiasis with left ureteral stent. Renal ultrasound read as left hydronephrosis, no clearly identified ureteral jets. EKG shows normal sinus rhythm. Low amplitude Q-wave in the inferior leads. No R- wave progression across the precordium. No ST segment elevation or depression. No hypertrophy or enlargement. Left axis deviation. Compared to previous films there are no significant changes. ASSESSMENT AND PLAN: IMPRESSION: Ms. Zhao is a 72-year-old female with past medical history significant for recurrent nephrolithiasis status post multiple stent placements , coronary artery disease, diabetes mellitus type 2, chronic kidney disease, who presents to the emergency department with severe left flank pain and was found to have nephrolithiasis with hydronephrosis and urinary tract infection. The patient will be seen in consultation by Dr. Tripp of urology for consideration of stent placement, which will be hopefully done tomorrow morning. The patient had intermittent chest pain and Cardiology will be consulted for risk stratification. 1. Nephrolithiasis, hydronephrosis with urinary tract infection: The patient has symptoms consistent with her numerous previous admissions and hospitalizations for kidney stones with obstruction and associated kidney infection. The patient has blood culture that has not been drawn and urine culture is pending. The patient not septic. The patient has received 1 L of fluids and will be continued on lactated Ringer's. The patient has been started on meropenem and vancomycin. Vancomycin has been given at this point, meropenem has not. Blood cultures will be drawn before the meropenem is infused. My plan is currently for the patient to have a stent placement in the morning. However, given the patient's chest pain, it cannot be said she is medically optimized for surgery or anesthesia. Troponin has been added on to her labs and this will be trended every 3 hours. A cardiology consult will be obtained. Echocardiogram will be performed. The patient will be risk stratified. If the patient deteriorates, a stent being placed will be indicated in a more emergent manner. 2. Chest pain: The patient's chest pain sounds to be possibly cardiac in origin with associated shortness of breath. The patient will be risk stratified as above. In addition, she will have a hemoglobin A1c and a lipid profile drawn. She is already on aspirin and a statin. Additional aspirin will not be given unless directed by Cardiology. 3. Diabetes mellitus type 2: The patient has a significantly elevated blood glucose in the hospital. The patient will be n.p.o. for procedure. The patient will have insulin and fingersticks. We will attempt to keep her blood glucose below 180 in the setting of infection. 4. The patient has low suspicion for a deep vein thrombosis or pulmonary embolism at this time, though it is on the differential. The patient is already on Eliquis and this will be continued. 5. Hypothyroidism: Continue the patient's levothyroxine. 6. Chronic kidney disease: Renally dose medications, avoid nephrotoxins if possible. Discontinue vancomycin after approximately 2 days or per Urology recommendations. 7. DVT prophylaxis: Eliquis. 8. FEN: The patient will be n.p.o. at this time. The patient will have lactated Ringer's at 100 mL an hour. 9. Disposition: The patient will be admitted under observation to the hospital. TIME SPENT: Approximately 60 minutes were spent on this admission, 30 of which was spent [id number] with the patient obtaining history and physical. The plan was discussed with my attending, Dr. Ashley Azar, and she is in agreement. KINGS CARPIO [id number]/[facility] #: [id number] MTDD
[2018-10-18] MEDS ORDERED: Naloxone* 0.4 MG/ML 1 ML VIAL IV PRN (17:11)
[2018-10-18] MEDS ORDERED: fentaNYL* 50 MCG/ML 2 ML VIAL (100 MCG VIAL) IV PRN (17:11)
--- NOTE | 2018-10-18 18:40 | CONS ---
CC: Dr. Balbuena; Dr. Rojo CARDIOLOGY CONSULTATION: DATE OF CONSULT: 10/18/18 REFERRAL PHYSICIAN: KINGS Proctor. REASON FOR CARDIOLOGY CONSULTATION: Chest discomfort in patient requiring renal calculi stenting. HISTORY OF PRESENT ILLNESS: The patient has a history of medically managed coronary artery disease in the past who had last night a recurrence of her renal calculus with severe pain and requires ureteral stenting for that. The patient denies angina. She did have earlier today some radiation of her left flank pain towards her mid chest, but she has not had convincing angina including on discussion with the patient. She has chronic shortness of breath. Past cardiac history is reported for cardiac catheterization, which reportedly showed distal left circumflex disease and totally occluded nondominant RCA in May 2012 that has been medically managed. The patient has not had recent ischemic evaluation that she recalls. She follows with my partner, Dr. Balbuena of the [facility]. The patient has had transthoracic echocardiogram completed on 06/11/17, which showed normal left ventricular size and systolic function with mild concentric left ventricular hypertrophy, mitral regurgitation, no pulmonary hypertension. In the past, her MRI had been graded more significant. The patient denies any recent angina. PAST MEDICAL HISTORY: Includes multiple renal calculi, she has had multiple stents, and has had pyelonephritis in the past. She has also had spontaneous left retroperitoneal hematoma, diabetes, hypertension. She states she has had multiple DVTs and PEs, hypothyroidism, hyperlipidemia. MEDICATIONS: Outpatient medications: 1. Atenolol 50 mg once a day. 2. Fluoxetine 40 mg p.o. q.h.s. 3. Brimonidine eye drops. 4. Bumex 2 mg p.o. q.a.m. 5. Aspirin 81 mg once a day. 6. Eliquis 5 mg p.o. b.i.d. 7. Lipitor 20 mg once a day. 8. Levothyroxine 50 mcg once a day. 9. Omeprazole 20 mg once a day. ALLERGIES: To medications are listed as LATEX, which causes itchiness and rash , SULFA, which causes her hives, LEVAQUIN, which causes her anaphylactic shock, LEVOTHYROXINE, which causes her rash and itchiness, and NITROFURANTOIN, which causes her shortness of breath, hives, and itchiness. FAMILY HISTORY: Negative for cardiac disease or stroke. There is family history of diabetes and cancer. SOCIAL HISTORY: She never smoked cigarettes, abuse alcohol. No use of illicit drugs. She has been for 51 years and of note, she is accompanied by her today at the bedside with her verbal consent during this cardiology consultation. 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 She does not do regular exercise. REVIEW OF SYSTEMS: She denies personal history of stroke, cancer, vomiting blood, coughing up blood, bright red blood per rectum, bleeding stomach ulcers. She has had multiple renal calculi requiring stents in the past. She denies cholelithiasis. She denies asthma, emphysema, pneumonia, tuberculosis, sleep apnea, home oxygen use. She has a history of diabetes. She has a history of hypertension. She denies prior VA, congestive heart failure, cardiac surgery. She was told she had a heart murmur as a child. She denies palpitations. She has a history of depression. She denies lupus. She has a history of seizures in the past, last 13 years ago. She does have some tremors. Denies Parkinson' s disease, myasthenia gravis. She has a history of hypothyroidism. She denies liver disease, renal failure, claudication symptoms. She has had prior PE and DVT. She has chronic peripheral edema. She occasionally has heartburn. Other review of systems negative x14 except as per this documentation. PHYSICAL EXAMINATION: Height 5 feet 6 inches, weight 350 pounds, temperature 98 degrees Fahrenheit, pulse 77, blood pressure 146/80, O2 saturation 95%. On general exam, she is an obese lady who appears depressed and is in mild distress from renal calculus. HEENT shows her cranium is normocephalic and atraumatic. She has dry mucosal membranes. Neck veins are not distended on limited assessment. There are no carotid bruits. Skin: Warm and perfused. Affect is appropriate. She appears oriented. No significant kyphoscoliosis on recumbent back exam. Lungs are clear to auscultation. No wheezes. No rales. Cardiac Exam: S1, S2. Regular rate. No significant murmurs, rubs, or gallops. PMI is nondisplaced. Abdomen: Obese, appears benign. She does appear to have pain from her renal calculi with flank discomfort on the left side, which seemed to replicate her prior chest pain. Extremities with chronic venous stasis changes without paucity and 1+ edema at least. Pulses appear grossly intact. DIAGNOSTIC STUDIES/LABORATORY DATA: A 12-lead EKG reviewed, 10/18/18, 10:59, shows sinus rhythm within normal limits. White blood cell count 11.4, hematocrit 41, platelet count 243. Sodium 138, potassium 4.5, chloride 105, bicarbonate 26, BUN 36, creatinine 1.46 and that seems to be around her baseline. Troponin 0 x2. ALT 20. IMPRESSION: Ms. Zhao is a 72-year-old woman with reported medically managed distal left circumflex and nondominant RCA CAD by cardiac catheterization in the past with known normal LV function being admitted with recurrence of renal calculus. She has had no convincing angina and she has a normal EKG with VA ruled out. There do not appear to be any unstable cardiac symptoms. I feel the patient may proceed with this needed renal calculi ureteral stenting at this time with no further cardiac evaluation felt needed. The patient had declined provocative ischemic evaluation. The patient and her are understanding and accepting of potential cardiac risks including but not limited to and VA and medical benefits inherent in this urologic procedure , and state clearly they wish to proceed with her renal calculi ureteral stenting now. RECOMMENDATIONS: 1. Continue aspirin, beta-lizeth, statin. 2. The patient may continue to follow up with her usual chart reader, Dr. aBlbuena post discharge. 3. Other per EMBER and SANDRA. Dear Mr. Rodriguez, thanks for this kind cardiovascular consultation. Please do not hesitate to contact me if you have any questions or concerns regarding the patient's cardiovascular consultative care. I have discussed the case with Mr. Rodriguez as well. [id number]/[facility] #: [id number] [facility] CHILDR[facility]'S MEDICAL CENTERAmber
[2018-10-18] MEDS: Vancomycin(*) 1,000 MG in NS 0.9% 250 ML* 250 ML IVPB SCH (18:59)
[2018-10-18] MEDS: Lactated Ringers 1000 ML Bag* 1,000 ML IV SCH (19:01)
[2018-10-18] MEDS: Apixaban* 5 MG TAB PO SCH (20:28)
[2018-10-18] MEDS: FLUoxetine CAP* 20 MG PO SCH (20:28)
[2018-10-18] MEDS: Potassium Citrate TAB (NF) 15 MEQ TABLET.ER PO SCH (20:42)
[2018-10-18] MEDS: PTO: Brimonidine P 0.1%(NF) 1 DROP BTL BOTH EYES SCH (21:35)
--- NOTE | 2018-10-18 21:48 | OP ---
CC: Dr. Rojo; Dr. Balbuena * DATE OF OPERATION: 10/18/18- ROOM #434 DATE OF : 47 SURGEON: Min Tripp MD. ANESTHESIOLOGIST: Dr. Cuadra. ANESTHESIA: General. PRE-OPERATIVE DIAGNOSES: 1. Left hydronephrosis. 2. Pyelonephritis. POST-OPERATIVE DIAGNOSES: 1. Left hydronephrosis. 2. Pyelonephritis. OPERATIVE PROCEDURE: Cystoscopy, left retrograde pyelogram, and left ureteral stent change. COMPLICATIONS: None. STENT USED: 8.5 Algerian 24-cm silicone stent, left ureter. POSTOPERATIVE CONDITION: Stable. OPERATIVE FINDINGS: Left hydronephrosis with approximately 25 to 30 cc of purulent material drained from left renal pelvis. 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 She has been managed with an indwelling left stent, which was last changed on 09/07/18. She presented with severe left flank pain and was noticed to have left hydronephrosis and likely associated pyelonephritis. She is now being brought in for left stent change. DESCRIPTION OF PROCEDURE: After induction of general anesthesia, the patient was placed in dorsal lithotomy position. Sequential compression devices were in place and functioning. Initial cystoscopy revealed some cloudy urine in the bladder, which made visibility fairly difficult. The previously placed stent was removed. An open-ended catheter was advanced under fluoroscopic monitoring into the left renal pelvis. About 25 to 30 cc of pus was drained and a sample of urine from the left kidney was sent for culture. A limited retrograde pyelogram was done, which confirmed left hydronephrosis and appropriate positioning of the wire and a new 8.5 Algerian 24-cm black silicone stent was introduced and positioned under fluoroscopy with good proximal and distal positioning obtained. The patient tolerated the procedure satisfactorily and was transferred back to recovery area in stable condition. If she continues to have recurrent episodes of obstruction with an appropriately positioned stent, she may benefit from left ureteroscopy and balloon dilatation but that would require her to be temporarily off anticoagulants and would also have to be done at a time where she does not have an active infection. The patient tolerated the procedure satisfactorily and was transferred back to the recovery area in stable condition. [id number]/[facility] #: [id number] ANTHONY
[2018-10-19] MEDS: Vancomycin(*) 1,000 MG in NS 0.9% 250 ML* 250 ML IVPB SCH ×3 (02:08→17:54)
[2018-10-19] MEDS: Lactated Ringers 1000 ML Bag* 1,000 ML IV SCH ×2 (03:20→20:03)
[2018-10-19] MEDS: Levothyroxine TAB* 50 MCG TAB PO SCH (05:31)
[2018-10-19 07:19] LABS: ABS Lymphocytes 0.6 10^3/ul (1.0-4.8); ABS Monocytes 0.5 10^3/ul (0-0.8); ABS Neutrophils 10.1 10^3/ul (1.5-7.7); Hematocrit 36 % (35-47); Lymphocyte % 5.3 %; Mean Corpuscular HGB Conc 33 g/dL (31-36); Mean Corpuscular Hemoglobin 30 pg (27-31); Mean Corpuscular Volume 89 fL (80-97); Mean Platelet Volume 8.7 fL (7.4-10.4); Platelet Count 200 10^3/uL (150-450); Red Blood Count 4.06 10^6 /uL (3.70-4.87); Red Cell Distribution Width 16 % (10-15); White Blood Count 11.2 10^3/uL (3.5-10.8)
[2018-10-19 07:44] LABS: BUN/Creatinine Ratio 18.7 (8-20); Calcium 8.5 mg/dL (8.6-10.3); EGFR African American 41.4 (>60); EGFR Non-African American 34.2 (>60); Magnesium 1.9 mg/dL (1.9-2.7); Potassium 4.3 mmol/L (3.5-5.0)
[2018-10-19] MEDS: Atorvastatin* 20 MG TAB PO SCH (09:09)
[2018-10-19] MEDS: Apixaban* 5 MG TAB PO SCH ×2 (09:09→21:11)
[2018-10-19] MEDS: Atenolol TAB* 50 MG PO SCH (09:09)
[2018-10-19] MEDS: Insulin LISPRO* 1 UNITS UNIT SUBCUT SCH ×4 (09:10→21:11)
[2018-10-19] MEDS: PTO: Brimonidine P 0.1%(NF) 1 DROP BTL BOTH EYES SCH ×2 (09:10→21:12)
[2018-10-19] MEDS: Aspirin EC TAB* 81 MG TAB.EC PO SCH (09:10)
[2018-10-19] MEDS: Pantoprazole TAB * 40 MG TAB PO SCH (09:10)
[2018-10-19] MEDS: Sodium Chloride 5% OPTH.SOL* 15 ML BTL BOTH EYES PRN ×2 (09:15→21:15)
[2018-10-19] MEDS: Potassium Citrate TAB (NF) 15 MEQ TABLET.ER PO SCH ×2 (09:25→21:12)
[2018-10-19] MEDS ORDERED: oxyCODONE TAB* 5 MG TAB PO PRN (10:01)
[2018-10-19] MEDS ORDERED: Vancomycin per Pharmacy* NOTE FOLLOW UP PRN (11:41)
[2018-10-19] MEDS: Meropenem 1 GM PREMIX(*) 1 GM/50 ML BAG IV SCH ×2 (12:50→23:51)
--- NOTE | 2018-10-19 19:35 | PN ---
Subjective Date of Service: 10/19/18 Interval History: Patient is feeling much better today. Patient has no pain. Patient has slight burning with urination. Patient is able to get up and walk. Patient denies dizziness on standing, F/C, N/V, abdominal pain, diarrhea, or other pain. Family History: Unchanged from Admission Social History: Unchanged from Admission Past Medical History: Unchanged from Admission Objective Active Medications: Acetaminophen (Tylenol Tab*) 650 mg PO Q4H PRN PRN Reason: FEVER/PAIN Apixaban (Eliquis*) 5 mg PO BID [facility] Last Admin: 10/19/18 09:09 Dose: 5 mg Aspirin (Aspirin Ec Tab*) 81 mg PO QAM [facility] Last Admin: 10/19/18 09:10 Dose: 81 mg Atenolol (Tenormin Tab*) 50 mg PO QAM [facility] Last Admin: 10/19/18 09:09 Dose: 50 mg Atorvastatin Calcium (Lipitor*) 20 mg PO DAILY [facility] Last Admin: 10/19/18 09:09 Dose: 20 mg Brimonidine Tartrate (Alphagan P 0.1% (Nf)) 1 drop BOTH EYES BID [facility] Last Admin: 10/19/18 09:10 Dose: 1 drop Dextrose (D50w Syringe 50 Ml*) 12.5 gm IV PUSH .FOR FS < 60 - SS PRN PRN Reason: FS < 60 Fluoxetine HCl (Prozac Cap*) 40 mg PO BEDTIME [facility] Last Admin: 10/18/18 20:28 Dose: 40 mg Lactated Ringer's (Lactated Ringers 1000 Ml Bag*) 1,000 mls @ 100 mls/hr IV PER RATE [facility] Last Admin: 10/19/18 03:20 Dose: 100 mls/hr Vancomycin HCl 1,000 mg/ (Sodium Chloride) 250 mls @ 166.667 mls/hr IVPB Q8H [facility]; Protocol Last Admin: 10/19/18 17:54 Dose: 166.667 mls/hr Meropenem (Merrem 1 Gm Premix(*)) 1 gm in 50 mls @ 100 mls/hr IV Q12H [facility]; Protocol Last Admin: 10/19/18 12:50 Dose: 100 mls/hr Insulin Human Lispro (Humalog*) 0 units SUBCUT ACHS [facility]; Protocol Last Admin: 10/19/18 17:54 Dose: 1 unit Levothyroxine Sodium (Synthroid Tab*) 50 mcg PO DAILY@0600 [facility] Last Admin: 10/19/18 05:31 Dose: 50 mcg Ondansetron HCl (Zofran Inj*) 4 mg IV Q6H PRN PRN Reason: NAUSEA Last Admin: 10/18/18 14:08 Dose: 4 mg Oxycodone HCl (Roxycodone Tab*) 5 mg PO Q8H PRN PRN Reason: Pain Moderate Pantoprazole Sodium (Protonix Tab*) 40 mg PO DAILY [facility] Last Admin: 10/19/18 09:10 Dose: 40 mg Pharmacy Consult (Vancomycin Per Pharmacy*) 1 note FOLLOW UP . PRN PRN Reason: PER PROTOCOL Pharmacy Profile Note (Vancomycin Trough Check) 1 note FOLLOW UP ONCE ONE Stop: 10/21/18 09:31 Polyvinyl Alcohol (Polyvinyl Alcohol 1.4% Opth*) 1 drop BOTH EYES BID PRN PRN Reason: DRY EYES Last Admin: 10/18/18 20:28 Dose: 1 drp Potassium Citrate (Potassium Citrate Tab (Nf)) 15 meq PO BID [facility] Last Admin: 10/19/18 09:25 Dose: Not Given Sodium Chloride (Hypertonic) (Karolina 128 Opth 5% Opth.Soll*) 1 drop BOTH EYES Q4H PRN PRN Reason: cloudy vision Last Admin: 10/19/18 09:15 Dose: 1 drop Vital Signs - 8 hr 10/19/18 10/19/18 10/19/18 11:44 15:13 16:00 Temperature 98.2 F 97.1 F Pulse Rate 71 72 Respiratory 20 16 Rate Blood Pressure 129/66 131/69 (mmHg) O2 Sat by Pulse 96 92 92 Oximetry Oxygen Devices in Use Now: None Appearance: Patient is a 72yo female who appears stated age and is sitting in the bed in [facility]. Eyes: No Scleral Icterus, PERRLA Ears/Nose/Mouth/Throat: NL Teeth, Lips, Gums, Clear Oropharnyx, Mucous Membranes Moist Neck: NL Appearance and Movements; NL JVP Respiratory: Symmetrical Chest Expansion and Respiratory Effort, Clear to Auscultation Cardiovascular: NL Sounds; No Murmurs; No JVD, RRR, No Edema Abdominal: NL Sounds; No Tenderness; No Distention, No Hepatosplenomegaly Lymphatic: No Cervical Adenopathy Extremities: No Edema, No Clubbing, Cyanosis Skin: No Rash or Ulcers, No Nodules or Sclerosis Neurological: Alert and Oriented x 3, NL Sensation, NL Muscle Strength and Tone , - - CN II-XII intact. Result Diagrams: 10/19/18 06:18 10/19/18 06:11 Additional Lab and Data: Lab Results Microbiology and Other Data: Microbiology 10/18/18 14:52 Blood Culture - Preliminary Blood Venous No Growth Day 1 10/18/18 16:38 Urine Culture - Preliminary Urine Escherichia Coli Enterococcus Faecalis 10/18/18 07:44 Urine Culture - Preliminary Urine Escherichia Coli 10/18/18 13:13 Aerobic Blood Culture - Final Blood Venous Not Reportable Anaerobic Blood Culture - Final Not Reportable Blood Culture - Preliminary No Growth Day 1 Assess/Plan/Problems-Billing Assessment: PMH for Recurrent nephrolithiasis needing stenting, CAD, HTN, HLD, here with Nephrolithiasis needing stenting and UTI. Patient had one episode of chest pain which was believed to be non-cardiac in origin and is improving on antibiotics. - Patient Problems (1) UTI (urinary tract infection) Current Visit: No Status: Acute Comment: - Urine Culture with complication and concern for decompensation - On Meropenum and Vanco, Vanco D/C'd - E. coli and Enterococcus growing in urine, pending sensitivities. (2) Hydronephrosis Current Visit: No Status: Acute Code(s): N13.30 - UNSPECIFIED HYDRONEPHROSIS SNOMED Code(s): 46603313 Comment: - With associated pyelonephritis - S/P Stenting - Appreciate Urology input - F/U for possible Balloon Dilitation. - CKD always at baseline. (3) CKD (chronic kidney disease) Current Visit: No Status: Chronic Code(s): N18.9 - CHRONIC KIDNEY DISEASE, UNSPECIFIED SNOMED Code(s): 837157061 Comment: - Stage 3 - At baseline (4) Diabetes Current Visit: No Status: Chronic Code(s): E11.9 - TYPE 2 DIABETES MELLITUS WITHOUT COMPLICATIONS SNOMED Code(s): 42451360 Comment: - SSI and FSBG ACHS - Normally diet controlled. (5) HLD (hyperlipidemia) Current Visit: No Status: Chronic Code(s): E78.5 - HYPERLIPIDEMIA, UNSPECIFIED SNOMED Code(s): 15086677 Comment: - Continue statin (6) HTN (hypertension) Current Visit: No Status: Chronic Code(s): I10 - ESSENTIAL (PRIMARY) HYPERTENSION SNOMED Code(s): 65594895 Comment: - Normotensive, continue Atenolol. (7) History of pulmonary embolus (PE) Current Visit: No Status: Chronic Code(s): Z86.711 - PERSONAL HISTORY OF PULMONARY EMBOLISM SNOMED Code(s): 615509876 Comment: - No signs at this time, continue Eliquis (8) DVT prophylaxis Current Visit: No Status: Acute Priority: High Code(s): QOE7329 - SNOMED Code(s): 224099460 Comment: - Eliquis (9) Full code status Current Visit: No Status: Acute Code(s): Z78.9 - OTHER SPECIFIED HEALTH STATUS SNOMED Code(s): 289023447 Status and Disposition: Inpatient.
[2018-10-19] MEDS: FLUoxetine CAP* 20 MG PO SCH (21:11)
[2018-10-20] MEDS: Vancomycin(*) 1,000 MG in NS 0.9% 250 ML* 250 ML IVPB SCH (02:16)
[2018-10-20] MEDS: Levothyroxine TAB* 50 MCG TAB PO SCH (06:06)
[2018-10-20 08:13] LABS: CO2 Carbon Dioxide 17 mmol/L (22-32); Calcium 8.3 mg/dL (8.6-10.3); Chloride 109 mmol/L (101-111); Sodium 136 mmol/L (135-145)
[2018-10-20 08:18] LABS: BUN/Creatinine Ratio 23.1 (8-20); Blood Urea Nitrogen 33 mg/dL (6-24); EGFR African American 43.8 (>60); EGFR Non-African American 36.2 (>60); Glucose 149 mg/dL (70-100)
[2018-10-20 08:52] LABS: Anion Gap 10 mmol/L (2-11)
[2018-10-20] MEDS: Aspirin EC TAB* 81 MG TAB.EC PO SCH (09:23)
[2018-10-20] MEDS: Atenolol TAB* 50 MG PO SCH (09:23)
[2018-10-20] MEDS: Atorvastatin* 20 MG TAB PO SCH (09:23)
[2018-10-20] MEDS: Apixaban* 5 MG TAB PO SCH (09:23)
[2018-10-20] MEDS: Pantoprazole TAB * 40 MG TAB PO SCH (09:23)
[2018-10-20] MEDS: Insulin LISPRO* 1 UNITS UNIT SUBCUT SCH (09:24)
[2018-10-20] MEDS: PTO: Brimonidine P 0.1%(NF) 1 DROP BTL BOTH EYES SCH (09:31)
[2018-10-20] MEDS: Potassium Citrate TAB (NF) 15 MEQ TABLET.ER PO SCH (09:31)
[2018-10-20] MEDS ORDERED: Amoxicillin/Clavulanate TAB* 875 MG PO SCH (10:00)
[2018-10-20] MEDS: Sodium Chloride 5% OPTH.SOL* 15 ML BTL BOTH EYES PRN (10:09)
[2018-10-20 10:53] VITALS: BP 138/76
[2018-10-20 10:55] LABS: ABS Basophils 0.1 10^3/ul (0-0.2); ABS Eosinophils 0.1 10^3/ul (0-0.6); ABS Lymphocytes 1.4 10^3/ul (1.0-4.8); ABS Monocytes 0.9 10^3/ul (0-0.8); ABS Neutrophils 8.8 10^3/ul (1.5-7.7); Eosinophil % 0.8 %; Hematocrit 38 % (35-47); Hemoglobin 12.5 g/dL (12.0-16.0); Lymphocyte % 12.5 %; Mean Corpuscular HGB Conc 33 g/dL (31-36); Mean Corpuscular Hemoglobin 30 pg (27-31); Mean Corpuscular Volume 90 fL (80-97); Mean Platelet Volume 8.6 fL (7.4-10.4); Platelet Count 237 10^3/uL (150-450); Red Blood Count 4.23 10^6 /uL (3.70-4.87); Red Cell Distribution Width 16 % (10-15); White Blood Count 11.3 10^3/uL (3.5-10.8)
--- NOTE | 2018-10-20 23:47 | DS ---
CC: Gilles Rojo; Dr. Agustin Osborn * DISCHARGE SUMMARY: DATE OF ADMISSION: 10/18/18 DATE OF DISCHARGE: 10/20/18 PRIMARY CARE PROVIDER: Dr. Popeye Rojo. MY ATTENDING WHILE IN THE HOSPITAL: Dr. Nydia Bryant.* (DICTATED BY KINGS CARPIO) OUTPATIENT UROLOGIST: Dr. Agustin Osborn. PRIMARY DISCHARGE DIAGNOSES: 1. Left-sided hydronephrosis. 2. Nephrolithiasis. 3. Urinary tract infection due to Escherichia coli and Enterococcus. SECONDARY DISCHARGE DIAGNOSES: 1. Diabetes mellitus type 2. 2. Coronary artery disease. 3. Depression. 4. Hypothyroidism. 5. Legal blindness. 6. Chronic kidney disease 7. Retroperitoneal fibrosis. 8. 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 9. Mitral valve regurgitation. STUDIES DONE WHILE IN THE HOSPITAL: Electrocardiogram was consistent with previous exams. No ST-segment elevations or depressions. Abdominal x-ray read as nephrolithiasis with left ureteral stent. Renal ultrasound read as left hydronephrosis. Cystogram with fluoroscopy, left retrograde pyelogram and stent placement. MEDICATIONS AT DISCHARGE: 1. Atenolol 50 mg p.o. daily. 2. Potassium citrate 50 mEq p.o. b.i.d. 3. Fluoxetine 40 mg at bedtime. 4. Natural Tears 1 drop both eyes b.i.d. as needed. 5. Bromindione 1 drop both eyes b.i.d. 6. Bumex 2 mg p.o. daily. 7. Aspirin 81 mg p.o. daily. 8. Eliquis 5 mg p.o. b.i.d. 9. Multivitamin 1 tab p.o. daily. 10. Lipitor 20 mg p.o. daily. 11. Synthroid 50 mcg p.o. daily. 12. Hypertonic Saline 1 drop both eyes daily as needed. 13. Omeprazole 20 mg p.o. daily. 14. Tylenol 650 mg p.o. q.4 hours as needed. 15. Amoxicillin 875 mg p.o. b.i.d. for 22 doses. New medications: 1. Tylenol. 2. Augmentin. Medications discontinued at discharge: None. HOSPITAL COURSE: This is a brief summary of the patient's presentation. For more details, please see history and physical from this author on 10/18/18. In brief, the patient is a 72-year-old female with a past medical history significant for the above, who presented with symptoms for approximately 7 hours before admission consistent with her previous episodes of nephrolithiasis with severe abdominal and flank pain. The patient complained of chest pain during her ED stay. The patient's case was discussed with Dr. Min Tripp of Urology who recommended stent placement. The patient was started on antibiotics , fluids. The patient was initially on meropenem and vancomycin. The patient due to her chest pain, despite negative troponins and non-ischemic EKG, was seen in consultation by Dr. Jake Sheffield for preoperative optimization. Dr. Sheffield recommended no further evaluation prior to her ureteral stenting. She was taken for ureteral stent on 10/18/18, which was performed without difficulty. The patient improved greatly with fluids, stenting and antibiotics. The patient had no growth on her blood cultures. The patient had E. coli, enterococcus that grew in her urine. The patient improved greatly with no persistent vital sign abnormalities. On 10/21/18, both the enterococcus and E. coli were susceptible to Augmentin. The patient was stable, anxious and amenable for discharge on 10/20/18. PHYSICAL EXAM AT THE TIME OF DISCHARGE: General: The patient is a 72-year-old female who appears her stated age, sitting comfortably in the bed, in no acute distress. Vital Signs: At the time of discharge, temperature 98.1, pulse rate 56, respiratory rate 20, oxygen saturation 98% on room air, blood pressure 138/ 76. HEENT: Head normocephalic, atraumatic. Sclerae anicteric. No conjunctival injection. Nasal mucosa moist. Oral mucosa moist. No pharyngeal erythema, discharge, or exudate. Neck: Supple, nontender. No lymphadenopathy. No carotid bruits. No JVD. Cardiac: Regular rate and rhythm. No clicks, murmurs, gallops, or rubs. Pulses 2+ in the bilateral dorsalis pedis, posterior tibialis, and radial areas. Trace bilateral lower extremity edema. Respiratory: Clear to auscultation bilaterally. No wheezes, rales, or rhonchi. Good air exchange bilaterally. Abdomen: Soft, nontender, and nondistended. Bowel sounds present, normoactive in all 4 quadrants. No hepatosplenomegaly. No abdominal bruits auscultated. No hepatojugular reflux. Genitourinary: No suprapubic tenderness or CVA tenderness. Skin: Clean, dry , and intact. No rash. Neuro: Cranial nerves II through XII intact. No focal deficits. Alert and oriented x3. Psychiatric: Pleasant and cooperative. DISCHARGE PLAN: The patient will be discharged to home. The patient will be continued on Augmentin for her complicated urinary tract infection with stent implantation for a total of 2 weeks with Augmentin. The patient tolerated it well on the morning of discharge. The patient is to follow up with primary care provider within 1 week for general medical management. The patient's laboratory data was quite good. The patient's blood glucose was very well controlled during her hospitalization. The patient should continue with her dietary management of her glucose. The patient should continue on her other chronic medical treatments. The patient is to follow up with Urology within 1 month for consideration of balloon dilation of her ureter as she has had multiple episodes of hydronephrosis despite normal functioning stent. The patient is to return to hospital for alarming signs and symptoms such as fever, abdominal pain, chest pain, shortness of breath, high fevers, or other alarming symptoms. The patient should engage in activities as tolerated and have a heart healthy diet. Caffeine okay. TIME SPENT: Approximately 45 minutes was spent on the discharge of this patient , 30 of which was spent [id number] with the patient obtaining history and physical and discussing treatment plan. KINGS CARPIO [id number]/TAI #: [id number] ANTHONY
[2018-10-21] MEDS ORDERED: Vancomycin Trough Check NOTE FOLLOW UP ONE (09:30)
== END 2018-10-20 11:25 | disposition home or self-care (01) | DRG 661 ==
LOC: ED 07:21 → SSU 10:00 → MED 10:00 → UNDOADMOB 10:00 → MEDTELE 11:52 → OBSVTOIN 10-19 11:00
PROVIDERS: ADMIT Internal Medicine; ATTEND Hospitalist
PROC: 0TP98DZ Removal of Intraluminal Device from Ureter, Via Natural or Artificial Opening Endoscopic (ICD-10-PCS; 2018-10-18)
PROC: BT1FYZZ Fluoroscopy of Left Kidney, Ureter and Bladder using Other Contrast (ICD-10-PCS; 2018-10-18)
PROC: 0T778DZ Dilation of Left Ureter with Intraluminal Device, Via Natural or Artificial Opening Endoscopic (ICD-10-PCS; principal; 2018-10-18 15:28)
DX: N13.6 Pyonephrosis (principal); N39.0 Urinary tract infection, site not specified; E11.22 Type 2 diabetes mellitus with diabetic chronic kidney disease; N18.3 Chronic kidney disease, stage 3 (moderate); I34.0 Nonrheumatic mitral (valve) insufficiency; I12.9 Hypertensive chronic kidney disease with stage 1 through stage 4 chronic kidney disease, or unspecified chronic kidney disease; I25.10 Atherosclerotic heart disease of native coronary artery without angina pectoris; L30.9 Dermatitis, unspecified; B96.20 Unspecified Escherichia coli [E. coli] as the cause of diseases classified elsewhere; B95.2 Enterococcus as the cause of diseases classified elsewhere; R07.9 Chest pain, unspecified; F32.9 Major depressive disorder, single episode, unspecified; E03.9 Hypothyroidism, unspecified; E78.5 Hyperlipidemia, unspecified; H54.7 Unspecified visual loss; I87.2 Venous insufficiency (chronic) (peripheral); Z96.653 Presence of artificial knee joint, bilateral; Z86.711 Personal history of pulmonary embolism; Z86.718 Personal history of other venous thrombosis and embolism; Z79.01 Long term (current) use of anticoagulants; Z79.82 Long term (current) use of aspirin; Z79.899 Other long term (current) drug therapy; Z88.2 Allergy status to sulfonamides; Z88.8 Allergy status to other drugs, medicaments and biological substances; Z88.1 Allergy status to other antibiotic agents; Z91.040 Latex allergy status; Z82.5 Family history of asthma and other chronic lower respiratory diseases; Z80.7 Family history of other malignant neoplasms of lymphoid, hematopoietic and related tissues; Z80.49 Family history of malignant neoplasm of other genital organs; Z80.8 Family history of malignant neoplasm of other organs or systems; Z83.3 Family history of diabetes mellitus
CPT/HCPCS: 36415; 51600; 74018; 74430; 76775; 80048; 80053; 80202; 81003; 81015; 83036; 83605; 83735; 84484; 85025; 86140; 87040; 87077; 87086; 87186; 93005; 99285; A9270-GY; C1876; G0378; J1100; J2185; J2250; J2270; J2405; J2704; J3010; J3370

== ENCOUNTER 2019-01-26 00:08 | Observation (INO) | payer MEDICARE ==
--- OUTSIDE RECORDS SUMMARY | 2019-01-26 00:18 | XMS REPORT | Continuity of Care Document ---
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 Onset: 07/26/2005 Hyperlipidemia Popeye Rojo M.D. Onset: 07/26/2005 Edema Popeye Rojo M.D. Onset: 07/26/2005 Type 2 diabetes mellitus Popeye Rojo M.D. Onset: 06/11/2006 Epilepsy Popeye Rojo M.D. Onset: 06/11/2006 Obesity Popeye Rojo M.D. Onset: 06/11/2006 Hypothyroidism Popeye Rojo M.D. Onset: 10/23/2009 Arthropathy of joint of hand Popeye Rojo M.D. Onset: 10/22/2010 Disorder of bursa of shoulder region Popeye Rojo M.D. Onset: 12/25/2010 Postmenopausal bleeding Popeye Rojo M.D. Onset: 01/28/2011 Acute otitis externa Popeye Rojo M.D. Onset: 01/28/2011 Difficulty breathing Popeye Rojo M.D. Onset: 07/02/2011 Neck pain Popeye Rojo M.D. Onset: 12/02/2011 Neuralgia Popeye Rojo M.D. Onset: 12/02/2011 Disorder of shoulder Popeye Rojo M.D. Onset: 12/02/2011 Chest pain Popeye Rojo M.D. Onset: 05/08/2012 Pulmonary embolism Popeye Rojo M.D. Onset: 09/28/2012 Hematuria syndrome Popeye Rojo M.D. Onset: 12/14/2012 Urinary tract infectious disease Popeye Rojo M.D. Onset: 12/14/2012 Kidney stone Popeye Rojo M.D. Onset: 02/25/2013 Drug-induced acute dystonia Popeye Rojo M.D. Onset: 02/25/2013 Acute sinusitis Popeye Rojo M.D. Onset: 03/11/2014 Acute bronchitis Popeye Rojo M.D. Onset: 03/11/2014 Malaise and fatigue Popeye Rojo M.D. Onset: 09/13/2014 Ureteric stone Popeye Rojo M.D. Onset: 12/06/2014 Essential hypertension Popeye Rojo M.D. Onset: 03/07/2015 Dyspnea Popeye Rojo M.D. Onset: 03/07/2015 H/O: pulmonary embolus Popeye Rojo M.D. 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 Onset: 2014 lower extremity Bucky hematuria Popeye Rojo M.D. Onset: 05/18/2015 Low back pain Popeye Rojo M.D. Onset: 09/07/2015 Bronchitis Popeye Rojo M.D. Onset: 05/09/2016 Acute upper respiratory infection, unspecified Popeye Rojo M.D. Onset: Liver function tests abnormal Popeye Rojo M.D. Onset: 09/12/2016 Pneumonia Popeye Rojo M.D. Onset: 10/28/2016 Chronic ulcer of skin of calf Popeye Rojo M.D. 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 Onset: 05/20/2017 Nausea Popeye Rojo M.D. Onset: 06/19/2017 Dysthymic disorder Popeye Rojo M.D. Onset: 06/19/2017 Paroxysmal atrial fibrillation Popeye Rojo M.D. Onset: 07/21/2017 Headache Popeye Rojo M.D. Onset: 10/16/2017 Essential tremor Popeye Rojo M.D. Onset: 10/16/2017 Social History Type Date Description Comments Sex Unknown Tobacco Use Start: Unknown Nonsmoker ETOH Use Denies alcohol use Tobacco Use Start: Unknown Patient has never smoked Allergies, Adverse Reactions, Alerts Active Allergies Reaction Severity Comments Date Sulfa Drugs 12/06/1998 Latex 04/27/2008 Levaquin 12/02/2011 Levothyroxine itchy/legs swollen 11/09/2013 Macrodantin wheezing/hospitalization 06/19/2017 Cipro 11/27/2017 Medications Active Medications SIG Qnty Indications Ordering Date Provider Azithromycin 2 by mouth every 6tabs J20.9 Sonia 01/05/2019 250mg day x1 then 1 by Quyen Hobbs Tablets mouth every day x 4 more days Cheratussin ac 5-10 milliliters by 118ml Popeye Rojo, 01/04/2019 mouth every 6 hours M.D. 100-10mg/5ML as needed Solution Eliquis take one tablet by 60tabs Popeye Rojo, 07/20/2018 5mg Tablets mouth twice a day M.D. Atorvastatin Calcium Take 1 Tablet By 90tabs Popeye Rojo, 06/01/2018 Mouth AT Bedtime M.D. 20mg Tablets Butalbital-Acetamino take one or two 40tabs R51 Bonnie Onancock, 10/16/2017 phen tablets by mouth 3 M.D. 50-325mg Tablets times daily as needed for headache pain G44.209 Fluoxetine HCL 1 by mouth every 30caps Popeye Rojo, 07/21/2017 40mg day for anxiety and M.D. Capsules depression Potassium Citrate ER 1 po bid Family Medicine 07/04/2016 [facility] (1620 mg) Tablets ER [place] Synthroid take 1 tablet by 30tabs E03.9 Popeye Rojo, 09/14/2015 50mcg Tablets mouth every day M.D. Triamcinolone Acetonide apply to affected 45gm My Ibarra, 2014 skin twice a day INTEGRATION ANALYST 0.1% Cream Atenolol take one tablet by 90tabs Popeye Rojo, 05/08/2012 50mg Tablets mouth once daily M.D. Bumetanide 1 by mouth twice a 90tabs Popeye Rojo, 01/21/2002 1mg Tablets day as needed for M.D. leg swelling One Daily Womens 1 po qd Unknown Tablets Alphagan P 1 gtt each eye bid` Unknown 0.1% Solution Aspirin 1 by mouth every 90tabs Unknown 81mg Tablets day Augmentin 1 by mouth bid Unknown 500-125mg Tablets Immunizations CPT Code Status Date Vaccine Lot # [id number] Given 02/19/2018 Pneumococcal Conjugate Vacc-13 [id number] Given 01/19/2018 High-Dose, Influenza Virus Vacccine-fluzone 65 and [id number] older 95330 Given 02/13/2017 High-Dose, Influenza Virus Vacccine-fluzone 65 and [id number] older 57611 Given 03/14/2016 Zostivax [id number] Given 02/19/2016 High-Dose, Influenza Virus Vacccine-fluzone 65 and [id number] older 11897 Given 03/07/2015 High-Dose, Influenza Virus Vacccine-fluzone 65 and [id number] older 44470 Given 02/08/2014 High-Dose, Influenza Virus Vacccine-fluzone 65 and [id number] older Q2038 Given 12/14/2012 Split Influenza Medicare: Fluzone 01525 Given 12/14/2012 DO Not Use Split Influenza Virus Vaccine [id number] 20192 Given 08/17/2012 Pneumococcal Immunization [id number] Q2038 Given 12/25/2010 Split Influenza Medicare: Fluzone [id number] 53785 Given 12/25/2010 DO Not Use Split Influenza Virus Vaccine 73055 Given 09/05/2004 Td Immunization, For Use In Individuals 7 Years Or Older Vital Signs Date Vital Result Comment 01/05/2019 10:54am BP Systolic 120 mmHg BP Diastolic 70 mmHg Heart Rate 84 /min Body Temperature 98.3 F Respiratory Rate 18 /min Height 66 inches 5'6" Weight 341.00 lb BMI (Body Mass Index) 55.0 kg/m2 10/29/2018 8:18am BP Systolic 114 mmHg BP Diastolic 68 mmHg Heart Rate 78 /min Body Temperature 98.1 F Respiratory Rate 18 /min Height 66 inches 5'6" Weight 343.38 lb BMI (Body Mass Index) 55.4 kg/m2 Results Test Date Facility Test Result H/L Range Note Laboratory test [facility] Hemoglobin A1c 7.3 % % High 4.1 -5.7 finding 9 (607)- - (Fma) Laboratory test [facility] Lactic Acid 1.8 mmol/L Normal 0.5-2.0 1 finding 9 CBC Auto Diff [facility] White Blood 11.4 High 3.5-10.8 9 Count 10^3/uL Red Blood Count 4.62 10^6/uL Normal 3.70-4.87 Hemoglobin 13.6 g/dL Normal 12.0-16.0 Hematocrit 41 % Normal 35-47 Mean Corpuscular Volume 89 fL Normal 80-97 Mean Corpuscular Hemoglobin 30 pg Normal 27-31 Mean Corpuscular HGB Conc 33 g/dL Normal 31-36 Red Cell Distribution Width 16 % High 10-15 Platelet Count 243 10^3/uL Normal 150-450 Mean Platelet Volume 8.2 fL Normal 7.4-10.4 Abs Neutrophils 9.7 10^3/uL High 1.5-7.7 Abs Lymphocytes 0.7 10^3/uL Low 1.0-4.8 Abs Monocytes 0.9 10^3/uL High 0-0.8 Abs Eosinophils 0.1 10^3/uL Normal 0-0.6 Abs Basophils 0.1 10^3/uL Normal 0-0.2 Abs Nucleated RBC 0.0 10^3/uL Granulocyte % 84.9 % Lymphocyte % 6.0 % Monocyte % 8.0 % Eosinophil % 0.6 % Basophil % 0.5 % Nucleated Red Blood Cells % 0.1 Comp Metabolic Panel 10/18/2018 [facility] Sodium 138 mmol/L Normal 135-145 Potassium 4.5 mmol/L Normal 3.5-5.0 Chloride 105 mmol/L Normal 101-111 Co2 Carbon Dioxide 26 mmol/L Normal 22-32 Anion Gap 7 mmol/L Normal 2-11 Glucose 238 mg/dL High 70-100 Blood Urea Nitrogen 36 mg/dL High 6-24 Creatinine 1.46 mg/dL High 0.51-0.95 BUN/Creatinine Ratio 24.7 High 8-20 Calcium 9.4 mg/dL Normal 8.6-10.3 Total Protein 7.6 g/dL Normal 6.4-8.9 Albumin 3.8 g/dL Normal 3.2-5.2 Globulin 3.8 g/dL Normal 2-4 Albumin/Globulin Ratio 1.0 Normal 1-3 Total Bilirubin 0.50 mg/dL Normal 0.2-1.0 Alkaline Phosphatase 81 U/L Normal 34-104 Alt 20 U/L Normal 7-52 Ast 14 U/L Normal 13-39 Egfr Non- 35.3 >60 Egfr 42.7 >60 2 Laboratory test finding 10/18/2018 [facility] C Reactive Protein 19.87 mg/L High <8.01 Troponin I 0.00 ng/mL <0.04 3 Urinalysis Profile 10/18/2018 [facility] Urine Color Yellow Urine Appearance Turbid Urine Specific [place] 1.018 Normal 1.010-1.030 Urine pH 5.0 Normal 5-9 Urine Urobilinogen Negative Negative Urine Ketones Negative Negative Urine Protein 1+(30 mg/dL) Abnormal Negative Urine Leukocytes 3+ Abnormal Negative Urine Blood 2+ Abnormal Negative Urine Nitrite Positive Abnormal Negative Urine Bilirubin Negative Negative Urine Glucose 1+(50 mg/dL) Abnormal Negative Urine White Blood Cell 3+(>20/hpf) Abnormal Absent Urine Red Blood Cell 3+(>10/hpf) Abnormal Absent Urine Bacteria Absent Absent Urine Squamous Epithelial Cell Present Abnormal Absent Urine Culture And 10/18/2018 [facility] Urine Culture SEE RESULT BELOW 4 Sensitivities Laboratory test finding 09/07/2018 [facility] Point of Care 162 mg/dL High 70- 100 5 Glucose Laboratory test finding 09/07/2018 [facility] Point of Care 183 mg/dL High 70- 100 6 Glucose Laboratory test finding 08/30/2018 [facility] Blood Culture SEE RESULT BELOW 7 Urine Culture And 08/30/2018 [facility] Urine Culture SEE RESULT BELOW 8 Sensitivities Urinalysis Profile 08/30/2018 [facility] Urine Color Yellow Urine Appearance Turbid Urine Specific [place] 1.015 Normal 1.010-1.030 Urine pH 6.0 Normal 5-9 Urine Urobilinogen Negative Negative Urine Ketones Negative Negative Urine Protein 2+(100 mg/dL) Abnormal Negative Urine Leukocytes 3+ Abnormal Negative Urine Blood 3+ Abnormal Negative Urine Nitrite Positive Abnormal Negative Urine Bilirubin Negative Negative Urine Glucose Negative Negative Urine White Blood Cell 3+(>20/hpf) Abnormal Absent Urine Red Blood Cell 3+(>10/hpf) Abnormal Absent Urine Bacteria 2+ Abnormal Absent Urine Squamous Epithelial Cell Present Abnormal Absent Laboratory test finding 08/30/2018 [facility] Lipase 26 U/L Normal 11.0-82.0 C Reactive Protein 12.73 mg/L High <8.01 Comp Metabolic Panel 08/30/2018 [facility] Sodium 138 mmol/L Normal 135-145 Potassium 4.7 mmol/L Normal 3.5-5.0 Chloride 105 mmol/L Normal 101-111 Co2 Carbon Dioxide 27 mmol/L Normal 22-32 Anion Gap 6 mmol/L Normal 2-11 Glucose 197 mg/dL High 70-100 Blood Urea Nitrogen 29 mg/dL High 6-24 Creatinine 1.41 mg/dL High 0.51-0.95 BUN/Creatinine Ratio 20.6 High 8-20 Calcium 9.3 mg/dL Normal 8.6-10.3 Total Protein 7.2 g/dL Normal 6.4-8.9 Albumin 3.7 g/dL Normal 3.2-5.2 Globulin 3.5 g/dL Normal 2-4 Albumin/Globulin Ratio 1.1 Normal 1-3 Total Bilirubin 0.50 mg/dL Normal 0.2-1.0 Alkaline Phosphatase 71 U/L Normal 34-104 Alt 18 U/L Normal 7-52 Ast 13 U/L Normal 13-39 Egfr Non- 36.8 >60 Egfr 44.5 >60 9 Laboratory test 08/30/2018 [facility] Lactic Acid 1.6 mmol/L Normal 0.5-2.0 10 finding CBC Auto Diff 08/30/2018 [facility] White Blood Count 6.5 10^3/uL Normal 3.5- 10.8 Red Blood Count 4.67 10^6/uL Normal 3.70-4.87 Hemoglobin 13.5 g/dL Normal 12.0-16.0 Hematocrit 42 % Normal 35-47 Mean Corpuscular Volume 89 fL Normal 80-97 Mean Corpuscular Hemoglobin 29 pg Normal 27-31 Mean Corpuscular HGB Conc 33 g/dL Normal 31-36 Red Cell Distribution Width 16 % High 10.5-15 Platelet Count 219 10^3/uL Normal 150-450 Mean Platelet Volume 8.6 fL Normal 7.4-10.4 Abs Neutrophils 4.9 10^3/uL Normal 1.5-7.7 Abs Lymphocytes 0.9 10^3/uL Low 1.0-4.8 Abs Monocytes 0.5 10^3/uL Normal 0-0.8 Abs Eosinophils 0.1 10^3/uL Normal 0-0.6 Abs Basophils 0.0 10^3/uL Normal 0-0.2 Abs Nucleated RBC 0.0 10^3/uL Granulocyte % 74.9 % Lymphocyte % 14.5 % Monocyte % 8.3 % Eosinophil % 1.7 % Basophil % 0.6 % Nucleated Red Blood Cells % 0.1 Laboratory test finding 07/24/2018 [facility] In[facility] (Fma) 2.3 2.0- 3.0 (607)- - Laboratory test finding 07/14/2018 [facility] (Fma) 1.5 Low 2.0- 3.0 (607)- - 1 [facility] Severe Sepsis and Septic Shock Management Bundle Measure requires all lactic acids initially measuring >2.0 mmol/L be repeated. 2 Because ethnic data is not always readily [...] 15-29 5 Kidney failure <15 (or dialysis) 3 Troponin-I testing on Plasma Separator Tubes (PST) has a known false positive rate of 0.20-0.40%. All positive troponins reflex immediately to secondary confirmatory testing. Using the [employer] Immunoassay systems, the 99th percentile upper reference limit was demonstrated to be < 0.03 ng/mL. 4 SEE RESULT BELOW Name: CHRISTEL ZHAO : [address]: Ashley Azar MD Acct: [id number] Unit: [id number] AGE: 72 Location: [place] [address] Re10/19/18 SEX: F Status: ADM IN SPEC: [id number] ALCIDES: 10/18/[address]: Jody KU REQ: [id number] RECD: 10/18/18 STATUS: ANGEL SMITH DR: Popeye Rojo MD _ SOURCE: URINE SPDESC: ORDERED: Urine Culture Procedure Result Reported Site Urine Culture Final 10/20/18- 0847 ML Organism 1 ESCHERICHIA COLI [place] Count >100,000 (Many) CFU/ML 1. ESCHERICHIA COLI M.I.C. RX --------- ------ Ampicillin 8 S Cefazolin <=4 S Cefepime <=1 S Ceftriaxone <=1 S Ciprofloxacin <=0.25 S Gentamicin <=1 S Levofloxacin <=0.12 S Meropenem <=0.25 S Nitrofurantoin <=16 S Tetracycline <=1 S Pipercillin/Tazobactam <=4 S Trimethoprim/Sulfamethoxazole <=20 S Amoxicillin/Clavulanic Acid 4 S Aztreonam <=1 S Contact the Microbiology Department for any additional antibiotic reporting. * ML - Main Lab . END OF REPORT DEPARTMENT OF PATHOLOGY, [address] [place] [address] Arron Argueta M.D. Director [facility] # [id number] 5 Customer Service Representative: [id number] [phone] Customer Service Representative: [id number] 7 SEE RESULT BELOW Name: CHRISTEL ZHAO : [address]: Gerson Vital MD Acct: [id number] Unit: [id number] AGE: 72 Location: ED Re08/30/18 SEX: F Status: DEP ER SPEC: [id number] ALCIDES: 08/30/[address] [facility] [address]: Gerson Vital MD REQ: [id number] RECD: 08/30/18 STATUS: RES PENNYHR DR: Popeye Rojo MD _ SOURCE: BLOOD,VENO SPDES: ORDERED: Blood Cult Procedure Result Reported Site Aerobic Culture Bottle Preliminary 09/03/18922 ML No Growth Day 4 Anaerobic Culture Bottle Final 09/04/18920 ML No Growth Day 5 * ML - Main Lab . END OF REPORT DEPARTMENT OF PATHOLOGY, [address] [place] [address] Arron Argueta M.D. Director [facility] # [id number] 8 SEE RESULT BELOW Name: CHRISTEL ZHAO : [address]: Gerson Vital MD Acct: [id number] Unit: [id number] AGE: 72 Location: ED Re08/30/18 SEX: F Status: DEP ER SPEC: [id number] ALCIDES: 08/30/[address] [facility] [address]: Gerson Vital MD REQ: [id number] RECD: 08/30/18 STATUS: ANGEL SMITH DR: Popeye Rojo MD _ SOURCE: URINE SPDESC: ORDERED: Urine Culture Procedure Result Reported Site Urine Culture Final 09/02/18- 0914 ML Organism 1 ENTEROBACTER HORMAECHEI [place] Count >100,000 (Many) CFU/ML 1. ENTEROBACTER HORMAECHEI M.I.C. RX --------- ------ Cefazolin >=64 R Cefepime <=1 S Ceftriaxone >=64 R Ciprofloxacin <=0.25 S Gentamicin <=1 S Levofloxacin <=0.12 S Meropenem 1 S Nitrofurantoin 32 S Tetracycline 2 S Pipercillin/Tazobactam >=128 R Trimethoprim/Sulfamethoxazole <=20 S Amoxicillin/Clavulanic Acid >=32 R Aztreonam 32 R Contact the Microbiology Department for any additional antibiotic reporting. * ML - Main Lab . END OF REPORT DEPARTMENT OF PATHOLOGY, [address] [place] [address] Arron Argueta M.D. Director [facility] # [id number] 9 Because ethnic data is not always readily [...] 15-29 5 Kidney failure <15 (or dialysis) 10 [facility] Severe Sepsis and Septic Shock Management Bundle Measure requires all lactic acids initially measuring >2.0 mmol/L be repeated. Procedures Date Code Description Status 10/29/2018 01118 Finger Or Heel Stick Completed 07/24/2018 75936 Finger Or Heel Stick Completed 07/14/2018 52630 Finger Or Heel Stick Completed 03/07/2018 480618088 Diabetic Retinal Eye Exam Completed 11/17/2017 71138759 Mammogram Completed 05/27/2017 27713754 Colonoscopy Completed 11/14/2016 [id number] Mammogram Completed 08/18/2015 [id number] Mammogram Completed 07/11/2014 [id number] Mammogram Completed 07/08/2013 46604853 Mammogram Completed 02/11/2007 04001000 Colonoscopy Completed Medical Devices Description No Information Available Encounters Type Date Location Provider Dx Diagnosis Office Visit 10/29/2018 [facility] Office Popeye Rojo, I10 Essential ( primary) 8:00a M.DGlenroy hypertension E11.9 Type 2 diabetes mellitus without complications I26.99 Other pulmonary embolism without acute cor pulmonale R60.0 Localized edema I48.0 Paroxysmal atrial fibrillation Assessments Date Code Description Provider 01/05/2019 J20.9 Acute bronchitis, unspecified Janette Kohler-C 10/29/2018 I10 Essential (primary) hypertension Popeye Rojo M.D. 10/29/2018 E11.9 Type 2 diabetes mellitus without Popeye Rojo M.D. complications 10/29/2018 I26.99 Other pulmonary embolism without acute cor Popeye Rojo M.D. pulmonale 10/29/2018 R60.0 Localized edema Popeye Rojo M.D. 10/29/2018 I48.0 Paroxysmal atrial fibrillation Popeye Rojo M.D. 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 07/24/2018 I26.99 Other pulmonary embolism without acute cor Popeye Rojo M.D. pulmonale 07/14/2018 Z79.01 terminal block assembler (current) use of anticoagulants Popeye Rojo M.D. 07/14/2018 I26.99 Other pulmonary embolism without acute cor Popeye Rojo M.D. pulmonale Plan of Treatment Future Appointment(s):03/11/2019 11:00 am - Popeye Rojo M.D. at [facility]01/05/2019 - Sonia Hobbs, Janette-CJ20.9 Acute bronchitis, unspecifiedNew Medication:Azithromycin 250 mg - 2 by mouth every day x1 then 1 by mouth every day x 4 more daysAllComments:Medication Management Patient Understands medications she's taking? Yes No Are there Barriers to Adherence? Yes No Has the patient been asked about herbal supplements and therapies, and OTC meds? Yes No Care Plan1. Patient has been queried about patient's goals/preferences and functional/lifestyle goals at relevant visits. If relevant, describe: na2. Treatment goals as explained to the patient: abovesx resolution 3. Are there barriers to meeting treatment goals? Yes No If Yes, please describe:4. Self-Management goals as described to the patient: Yes No continue sx measures: rest , fluids , cough med will add z pack f/u if no better or if sx worsen Functional Status Description No Information Available Mental Status Description No Information Available Referrals Description No Information Available
[2019-01-26] MEDS ORDERED: Morphine 4 MG/ML VIAL (1 ml) 4 MG/ML VIAL IV ONE ×2 (00:47→04:07)
[2019-01-26] MEDS ORDERED: Ondansetron INJ* 2 MG/ML VIAL IV ONE (00:47)
--- NOTE | 2019-01-26 00:56 | ED ---
GI/ HPI - HPI Summary HPI Summary: 73 year old female presents with dysuria for the past day. She has been having worsening flank pain. Denies any injury. No loss of bowel or bladder. No saddle anesthesias.. Has a stent placed in her left kidney by dr aguilar a couple months ago. Has history of recurrent UTIs and kidney stones. Denies any fever. Admits to nausea and vomiting. Also admits diarrhea. Denies any abdominal pain. Took some Tylenol without any relief. - History of Current Complaint Chief Complaint: EDBackInjuryPain Time Seen by Provider: 01/26/19 00:32 Stated Complaint: KIDNEY STONES PER PTS Hx Last Menstrual Period: N/A Pain Intensity: 5 - Additional Pertinent History Primary Care Physician: YENNI - Allergy/Home Medications Allergies/Adverse Reactions: Allergies Allergy/AdvReac Type Severity Reaction Status Date / Time levofloxacin Allergy Severe Anaphylatic Verified 01/26/19 00:12 Shock nitrofurantoin Allergy Severe Hives/Diff. Verified 10/18/18 07:27 Breathing/I tching latex Allergy Intermediate Itching, Verified 10/18/18 07:27 breakout in little hives Sulfa (Sulfonamide Allergy Intermediate Hives Verified 10/18/18 07:27 Antibiotics) levothyroxine Allergy Rash And Verified 10/18/18 07:27 Itching PMH/Surg Hx/FS Hx/Imm Hx Endocrine/Hematology History: Reports: Hx Anticoagulant Therapy - eliquis and ASA, Hx Diabetes - type 2- diet controlled, Hx Thyroid Disease - hypothyroidism- ON SYNTHROID Cardiovascular History: Reports: Hx Coronary Artery Disease, Hx Deep Vein Thrombosis, Hx Embolism - multiple PEs, Hx Hypercholesterolemia, Hx Hypertension - ON MEDICATION FOR, Hx Peripheral Vascular Disease Denies: Hx Congestive Heart Failure, Other Cardiovascular Problems/Disorders Respiratory History: Reports: Hx Pulmonary Embolism - POST OP AFTER SHOULDER REPLACEMENT 2012, 2014 Denies: Hx Asthma, Hx Chronic Obstructive Pulmonary Disease (COPD), Other Respiratory Problems/Disorders GI History: Denies: Hx Gall Bladder Disease - gall bladder removed, Hx Ulcer, Other GI Disorders History: Reports: Hx Kidney Infection - HX OF-, Hx Kidney Stones - left-HX OF AND CURRENTLY, Hx Renal Disease - LT URETERAL STRICTURE. LT STENT Denies: Hx Dialysis, Other Problems/Disorders Musculoskeletal History: Reports: Hx Arthritis - GENERAL, Other Musculoskeletal History - Bilateral knee replacements, R shoulder replacement, fractured R elbow Sensory History: Reports: Hx Cataracts - BILATERAL, Hx Contacts or Glasses, Hx Glaucoma - BILATERAL, Hx Legally Blind, Hx Vision Problem - Pt is legally blind , Hx Hearing Aid, Hx Hearing Problem, Other Sensory Impairments Opthamlomology History: Reports: Hx Cataracts - BILATERAL, Hx Contacts or Glasses, Hx Glaucoma - BILATERAL, Hx Legally Blind, Hx Vision Problem - Pt is legally blind, Other Sensory Impairments Neurological History: Reports: Hx Migraine - Hx of none recently, Hx Seizures - Hx of- last seizure 10 years ago Denies: Other Neuro Impairments/Disorders Psychiatric History: Reports: Hx Autism, Hx Depression - ON MEDICATION FOR Denies: Hx Anxiety - Cancer History Hx Chemotherapy: No Hx Radiation Therapy: No - Surgical History Surgery Procedure, Year, and Place: Hysterectomy September 2014, 1970 R eye cataract removed, 1989 L eye cataract removed, bilateral knee replacements, R shoulder replacement, 2011 cholecystectomy, plate/screws in R elbow, kidney stone treatment x 3 august 09 3 kidney stones remover and litho. done on others bilaterly. D&C hysteroscopy versus point resection 2010 Hx Anesthesia Reactions: No Infectious Disease History: No Infectious Disease History: Denies: Hx Hepatitis, Hx Human Immunodeficiency Virus (HIV), Traveled Outside the [place] in Last 30 Days Comment Only: History Other Infectious Disease - kidney infection - Family History Known Family History: Positive: Cardiac Disease, Hypertension - Social History Alcohol Use: Rare Alcohol Amount: 3-4 PER YEAR Hx Substance Use: No Substance Use Type: Reports: None Hx Tobacco Use: No Smoking Status (MU): Never Smoked Tobacco Have You Smoked in the Last Year: No Review of Systems Negative: Fever Negative: Chest Pain Negative: Shortness Of Breath Positive: dysuria, flank pain All Other Systems Reviewed And Are Negative: Yes Physical Exam Triage Information Reviewed: Yes Vital Signs On Initial Exam: Initial Vitals Temp Pulse Resp BP Pulse Ox 98.6 F 86 16 172/73 97 01/26/19 00:09 01/26/19 00:09 01/26/19 00:09 01/26/19 00:09 01/26/19 00:09 Vital Signs Reviewed: Yes Appearance: Positive: Well-Appearing Skin: Positive: Warm, Dry Head/Face: Positive: Normal Head/Face Inspection Eyes: Positive: Normal, Conjunctiva Clear ENT: Positive: Pharynx normal Respiratory/Lung Sounds: Positive: Clear to Auscultation, Breath Sounds Present Cardiovascular: Positive: Normal, RRR Abdomen Description: Positive: Nontender, Soft, CVA Tenderness (L) Bowel Sounds: Positive: Present Musculoskeletal: Positive: Normal Neurological: Positive: Normal Psychiatric: Positive: Normal Procedures - Sedation Patient Received Moderate/Deep Sedation with Procedure: No Diagnostics - Vital Signs Vital Signs Temp Pulse Resp BP Pulse Ox 01/26/19 00:09 98.6 F 86 16 172/73 97 - Laboratory Result Diagrams: 01/26/19 01:05 01/26/19 01:05 Lab Statement: Any lab studies that have been ordered have been reviewed, and results considered in the medical decision making process. - Radiology abd Radiology Interpretation Completed By: ED Physician Summary of Radiographic Findings: stent in place GIGU Course/Dx - Course Course Of Treatment: 73 year old female presents with dysuria for the past day. She has been having worsening flank pain. Denies any injury. No loss of bowel or bladder. No saddle anesthesias.. Has a stent placed in her left kidney by dr aguilar a couple months ago. Has history of recurrent UTIs and kidney stones. Denies any fever. Admits to nausea and vomiting. Also admits diarrhea. Denies any abdominal pain. Took some Tylenol without any relief. On exam tenderness over left flank. Afebrile. wbc 14. bun 40. cr 1.82. urine shows uti. will treat with rocephin. xray shows stent in place. as bun/cr elevated and wbc and frequently becomes septic believe would be best that is admitted. discussed with dr burgess that wants CT to come back to make sure not stone prior to disposition. patient will be signed out to dr nash pending CT for disposition. - Diagnoses Differential Diagnoses - Female: Pyelonephritis, Urinary Tract Infection, Ureteral Calculi Provider Diagnoses: UTI (urinary tract infection) Discharge ED - Sign-Out/Discharge Documenting (check all that apply): Sign-Out Patient Signing out patient TO: Maureen Nash - Discharge Plan Referrals: Popeye Rojo MD [Primary Care Provider] -
[2019-01-26 01:15] LABS: ABS Basophils 0.2 10^3/ul (0-0.2); ABS Eosinophils 0.1 10^3/ul (0-0.6); ABS Monocytes 1.2 10^3/ul (0-0.8); Eosinophil % 0.8 %; Hematocrit 37 % (35-47); Mean Corpuscular HGB Conc 33 g/dL (31-36); Mean Corpuscular Hemoglobin 29 pg (27-31); Mean Corpuscular Volume 89 fL (80-97); Mean Platelet Volume 7.9 fL (7.4-10.4); Platelet Count 410 10^3/uL (150-450); Red Blood Count 4.14 10^6 /uL (3.70-4.87); Red Cell Distribution Width 16 % (10-15); White Blood Count 14.5 10^3/uL (3.5-10.8)
[2019-01-26] MEDS ORDERED: NS 0.9% 1000 ML** 1,000 ML IV ONE (01:21)
[2019-01-26 01:28] LABS: Albumin 3.6 g/dL (3.2-5.2); Albumin/Globulin Ratio 0.8 (1-3); C Reactive Protein 121.87 mg/L (<8.01); Calcium 9.1 mg/dL (8.6-10.3); EGFR Non-African American 27.3 (>60); Globulin 4.3 g/dL (2-4); Potassium 4.9 mmol/L (3.5-5.0); Total Bilirubin 0.3 mg/dL (0.2-1.0); Total Protein 7.9 g/dL (6.4-8.9)
[2019-01-26 01:54] LABS: Urine Appearance Turbid; Urine Bacteria Absent (Absent); Urine Bilirubin Negative (Negative); Urine Blood 2+ (Negative); Urine Color Yellow; Urine Glucose 1+(50 mg/dL) (Negative); Urine Ketones Negative (Negative); Urine Nitrite Negative (Negative); Urine Protein 2+(100 mg/dL) (Negative); Urine Red Blood Cell 3+(>10/hpf) (Absent); Urine Specific Gravity 1.019 (1.010-1.030); Urine Urobilinogen Negative (Negative); Urine White Blood Cell 3+(>20/hpf) (Absent)
[2019-01-26] MEDS ORDERED: cefTRIAXone(*) 1 GM in NS 0.9% 50 ML* 50 ML IVPB ONE (02:02)
--- NOTE | 2019-01-26 03:09 | ED ---
Progress - Progress Note Progress Note: Patient is received as a sign out from [facility] pending CT ABD/PEL and disposition of this patient. CT ABD/PEL IMPRESSION: There is left-sided severe hydronephrosis with a collapse ureter concerning for UPJ obstruction noted unchanged from prior study. There is a stable left ureteral stent noted. Recommend urologic evaluation of indwelling stent. There are punctate calcifications within the left renal pelvis. THIS REPORT WAS REVIEWED BY DR. PATRICK. 0430 - CT results were conveyed to Dr. Ferrari, who has accepted the patient for admission. - EKG/XRAY/CT CT: see above Course/Dx - Course Course Of Treatment: 73-year-old female sign changes shift to dc with flank pain. Found to have urinary tract infection. CAT scan demonstrated significant hydronephrosis with known stent. Patient referred to hospitalist for admission. - Diagnoses Provider Diagnoses: UTI (urinary tract infection), Flank pain - Provider Notifications Discussed Care Of Patient With: Trent Ferrari Time Discussed With Above Provider: 04:30 Instructed by Provider To: Other - 0430 - CT results were conveyed to Dr. Ferrari , who has accepted the patient for admission. Discharge ED - Sign-Out/Discharge Documenting (check all that apply): Patient Departure - admit - Discharge Plan Condition: Stable Disposition: ADMITTED TO [facility] Referrals: Popeye Rojo MD [Primary Care Provider] - - Billing Disposition and Condition Condition: STABLE Disposition: Admitted to [facility] - Attestation Statements Document Initiated by Scribe: Yes Documenting Scribe: TIANNA LINDSAY Provider For Whom Scribe is Documenting (Include Credential): ALONZO PATRICK MD Scribe Attestation: TIANNA Maki, scribed for ALONZO PATRICK MD on 01/26/19 at 0442. Scribe Documentation Reviewed: Yes Provider Attestation: The documentation as recorded by the TIANNA whyte accurately reflects the service I personally performed and the decisions made by , ALONZO PATRICK MD Status of Scribe Document: Viewed
[2019-01-26] MEDS ORDERED: Dextrose 50% VIAL 50 ml IV PUSH PRN (04:35)
[2019-01-26] MEDS ORDERED: Morphine INJ* 4 MG/ML 1 ML SYRINGE (NEW SYRINGE VERSION) IV PRN (04:37)
[2019-01-26] MEDS ORDERED: Acetaminophen TAB* 325 MG PO PRN (04:38)
[2019-01-26] MEDS ORDERED: Ondansetron INJ* 2 MG/ML VIAL IV PRN (04:41)
[2019-01-26] MEDS ORDERED: NS 0.9% 1000 ML** 1,000 ML IV SCH (04:45)
[2019-01-26] MEDS ORDERED: Levothyroxine TAB* 50 MCG TAB PO SCH (06:30)
--- NOTE | 2019-01-26 08:24 | HP ---
ADMISSION HISTORY AND PHYSICAL: DATE OF ADMISSION: 01/26/19 PRIMARY CARE PROVIDER: Dr. Rojo. HEALTHCARE PROXY: Her , Bernabe. CODE STATUS: Full. SOURCE OF INFORMATION: History obtained from interview with the patient. RELIABILITY: Good. CHIEF COMPLAINT: Left back pain. HISTORY OF PRESENT ILLNESS: This is a 73-year-old female with a past medical history of multiple episodes of nephrolithiasis with a left ureteral stricture, left hydronephrosis, and a left ureteral stent, last hospital stay in October 2018 with stent exchange, is presenting with left back pain, urinary symptoms. She was in usual state of health until approximately 1 to 2 weeks prior started to develop "cold" associated with cough for 1 to 2 weeks, sneezing, sore throat, and said even her also was having a similar constellation of symptoms. She received an antibiotic from her primary care provider, which she thinks may have been azithromycin with some improvement until today around 11 a.m., she started experiencing back pain. The pain was worse on the left side. By the time of dinner in the evening by 11 p.m., she felt the pain had been consistent and was very similar to previous infections. The previous times she has presented had urinary tract infections, most recently in October 2018 that required a stent exchange. So, she presented to the emergency room. She additionally endorses dysuria, urinary frequency, and hesitancy of starting today. She denies fevers or chills, but endorses sweats. She said she had a "cold" approximately 2 weeks prior. She had 1 episode of loose stool today and she has had nausea without vomiting. PAST MEDICAL HISTORY: Includes type 2 diabetes, CAD, depression, hypothyroidism. She is legally blind, CKD, retroperitoneal fibrosis. Multiple episodes of DVTs and PEs, the last she believes is several years prior. She has edxjycoh-wq-ofaimj mitral regurgitation, nephrolithiasis, left ureteral stent with left ureteral stricture, and left hydronephrosis complicated by multiple infections with most recent stent exchange in October 2018. She has had bilateral knee replacements, cholecystectomy, hysterectomy, cataracts, ORIF of her right arm, right shoulder, arthroplasty, and recent cataract. MEDICATIONS: Home medications include: 1. Acetaminophen. 2. Atenolol 50 mg daily. 3. Aspirin 81 mg daily. 4. Apixaban 5 mg twice daily. 5. Atorvastatin 20 mg daily. 6. Fluoxetine 400 mg at bedtime. 7. Bumex 2 mg in the morning. 8. Alphagan 1% one drop both eyes twice daily. 9. Sodium chloride 1 drop per instructions. 10. Potassium citrate 50 mEq twice daily. 11. Omeprazole 20 mg daily. 12. Multivitamin for Women 1 tab daily. 13. Levothyroxine 50 mcg daily. ALLERGIES: To LEVOFLOXACIN, NITROFURANTOIN, LATEX, SULFA, LEVOTHYROXINE. FAMILY HISTORY: Her mother had COPD and cancer. Father with lymphoma and type 2 diabetes. SOCIAL HISTORY: No tobacco. Rare alcohol. 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 REVIEW OF SYSTEMS: As per HPI, otherwise all other systems are negative. PHYSICAL EXAMINATION GENERAL: Sitting up in bed, interactive, pleasant in no apparent distress. VITAL SIGNS: When seen by this author, 115/76, heart rate is 80 beats per minute, respiratory rate is 16, she is 96% on room air, T-max in the emergency room is 98.6. HEENT: Oropharynx is clear. She has moist mucous membranes. Sclerae are anicteric. NECK: She has mildly elevated JVD, difficult to ascertain. LUNGS: Clear to auscultation. HEART: Regular rate and rhythm. No murmurs, rubs, or gallops. ABDOMEN: Soft, nontender, nondistended. No suprapubic tenderness. BACK: Symmetric. Nontender to palpation, but she does have mild left costovertebral angle tenderness. EXTREMITIES: Warm and well perfused. Her left leg is slightly largely larger than her right leg, which she reports as chronic. She has at least 1+ pitting edema bilaterally with symmetric erythema extending from her ankles proximally and enters up bilaterally, potentially a little bit worse on the left. NEUROLOGIC: She is alert and oriented x3. Her vision is impaired. She has no apparent anxiety, agitation, or depression. Her face is symmetric. DIAGNOSTIC STUDIES/LAB DATA: Labs reviewed notable for BUN 40, creatinine 1.8 , glucose 254, lactic acid 2.1, CRP 121. White blood cells are 14,500, platelets 410. Her urine is notable for protein, blood, leukocyte esterase, white blood cells, red blood cells, but absent bacteria. Data reviewed. CT of her abdomen and pelvis: Impression: Left-sided severe hydronephrosis with collapse. The ureter concerning for UPJ obstruction noted, unchanged from prior study in 2018. Stable left ureteral stent is noted. There is a recommendation for urological evaluation of the indwelling stent. There are punctate calcifications within the left renal pelvis. ASSESSMENT AND PLAN: This is a 73-year-old female with past medical history of nephrolithiasis, left ureteral stent in the setting of left ureteral stricture and left hydronephrosis, who presented to the hospital with back pain more prominent on the left as, well as symptoms that include dysuria, frequency, and hesitancy, found with leukocytosis, as well as acute on chronic kidney dysfunction. 1. Sepsis. The patient barely meets the diagnosis for sepsis in the setting of a leukocytosis and lactic acid of 2.1, although I would not agree that this is really a manifestation of dysregulated immune system as characterized by sepsis. I do suspect a source of the urinary system based on previous history as well as left CVA tenderness and symptoms, abnormal urinalysis, although of note it does have no bacteria. She received ceftriaxone; we will continue tomorrow, additionally increase 1 to 2 g of ceftriaxone. She has been known to have resistant organisms in the past. Follow cultures carefully. Blood cultures have been obtained. I note the patient is on 2 mg of Bumex daily, but a transthoracic echocardiogram is not significant for systolic dysfunction. Unclear whether she has had evidence of heart failure with reduced ejection fraction. Because of her stable cardiopulmonary status currently and unknown reason for high dose of diuretics, I will not give her additional boluses of fluid at this time, but will give her another 2 liters of normal saline at 150 cc per hour for a total of 2 liters. The patient will need a Urology consultation in the morning, which I will call in the next hour. 2. Lactic acidosis in the setting of above. Repeat now. 3. Acute on chronic kidney injury suspect in the setting of above, likely source, potentially obstruction. There was pus out of previous stent replacement. Fluids as above as well as Urology consultation. 4. History of multiple deep venous thromboses and pulmonary embolism, on Eliquis. 5. History of coronary artery disease. Continue home medications. 6. Cough in the setting of suspected infection, although the system is highest on the differential. We will check PA lateral chest x-ray, although I suspect viral etiology for preceding symptoms that have largely resolved. 7. Diabetes. Note the patient's hemoglobin A1c was elevated in October. She is on no medications currently. I will place her on a sliding scale of insulin q.6 hours fingersticks while she is n.p.o. Unclear best agent for her at this time. Attention to initiation of new medications prior to discharge should be made. 8. N.p.o. for potential procedure. 9. DVT prophylaxis. Terrell. [id number]/[facility] #: [id number] ANTHONY
[2019-01-26] MEDS ORDERED: Pantoprazole TAB * 40 MG TAB PO SCH (09:00)
[2019-01-26] MEDS ORDERED: BUMETANIDE 2 MG PO SCH (09:00)
[2019-01-26] MEDS ORDERED: BRIMONIDINE BOTH EYES SCH (09:00)
[2019-01-26] MEDS ORDERED: POTASSIUM CITRATE 15 MEQ PO SCH (09:00)
[2019-01-26] MEDS ORDERED: Atenolol TAB* 50 MG PO SCH (09:00)
[2019-01-26] MEDS ORDERED: Aspirin EC TAB* 81 MG TAB.EC PO SCH (09:00)
[2019-01-26] MEDS ORDERED: Atorvastatin* 20 MG TAB PO SCH (09:00)
[2019-01-26] MEDS ORDERED: Apixaban* 5 MG TAB PO SCH (09:00)
[2019-01-26] MEDS ORDERED: cefTRIAXone(*) 1 GM ADVAN/BAG ONE (10:47)
[2019-01-26] MEDS ORDERED: Metoclopramide IV* 5 MG/ML 2 ML VIAL ONE (10:47)
[2019-01-26] MEDS ORDERED: Famotidine IV* 10 MG/ML 2 ML (20 mg) ONE (10:47)
[2019-01-26] MEDS ORDERED: Iohexol 180 (CONTRAST) 10 ML SDV IV ONE (11:02)
[2019-01-26] MEDS ORDERED: Midazolam* 1 MG/ML 2 ML VIAL (2 MG) ONE (11:47)
[2019-01-26] MEDS ORDERED: KETAMINE HCL* 50 MG/ML 10 ML VIAL ONE (11:47)
[2019-01-26] MEDS ORDERED: Ondansetron INJ* 2 MG/ML VIAL ONE (12:34)
[2019-01-26] MEDS ORDERED: Propofol* 10 MG/ML 20 ML BTL ONE (12:34)
[2019-01-26] MEDS ORDERED: EPHEDrine (Pressors)* 50 MG/ML VIAL ONE (12:44)
[2019-01-26] MEDS ORDERED: Naloxone* 0.4 MG/ML 1 ML VIAL IV PRN (12:57)
[2019-01-26] MEDS ORDERED: DiMENhydriNATE IV* 50 MG/ML VIAL IV PUSH PRN (12:57)
[2019-01-26 15:35] VITALS: BP 112/60
[2019-01-26] MEDS: Insulin LISPRO* 1 UNITS UNIT SUBCUT SCH ×3 (15:42→17:20)
[2019-01-26] MEDS ORDERED: Nystatin TOP POWDER* 15 GM BTL TOPICAL SCH (16:00)
[2019-01-26] MEDS ORDERED: FLUoxetine CAP* 20 MG PO SCH (21:00)
--- NOTE | 2019-01-26 21:26 | OP ---
CC: Dr. Trent Ferrari; Dr. Popeye Rojo * DATE OF OPERATION: 01/26/19 - ROOM #420 DATE OF : 47 SURGEON: Min Tripp MD. ANESTHESIOLOGIST: Dr. Neil. ANESTHESIA: General. PRE-OP DIAGNOSES: 1. Left hydronephrosis. 2. History of stricture, left ureter. POST-OP DIAGNOSES: 1. Left hydronephrosis. 2. History of stricture, left ureter. OPERATIVE PROCEDURES: Cystoscopy, left retrograde pyelogram, and left ureteral stent change. COMPLICATIONS: None. POSTOPERATIVE CONDITION: Stable. STENT USED: An 8.5-Tajik 24 cm black silicone stent, left ureter. INDICATIONS: Christel Zhao is a 73-year-old lady with longstanding history of left hydronephrosis secondary to a left ureteral stricture. She has been managed with an indwelling left ureteral stent and was admitted and noted to have severe left hydronephrosis. She is now being brought in for stent change. DESCRIPTION OF PROCEDURE: After induction of general anesthesia, the patient was placed in the dorsal lithotomy position. Sequential compression devices were in place and functioning. Initial cystoscopy revealed cloudy urine within the bladder, which made visualization suboptimal. The previously placed left stent was noted and was removed intact without difficulty. Retrograde pyelogram revealed left hydronephrosis with a distorted collecting system. An 8.5-Tajik 24 cm black silicone stent was introduced and positioned under fluoroscopy with good proximal and distal positioning obtained. A Dixon catheter was placed for temporary bladder drainage. The patient tolerated the procedure satisfactorily and was transferred back to the recovery area in stable condition. [id number]/[facility] #: [id number] [facility]
--- NOTE | 2019-01-26 21:26 | DS ---
CC: Dr. Rojo; Dr. Tripp * DISCHARGE SUMMARY: DATE OF ADMISSION: 01/26/19 DATE OF DISCHARGE: 01/26/19 PRIMARY CARE PROVIDER: Dr. Rojo. OTHER PROVIDER: Dr. Tripp. ATTENDING PHYSICIAN: Dr. Conner Osorio * (dictated by KINGS Wilson). PRIMARY DIAGNOSES: 1. Left renal hydronephrosis. 2. Urinary tract infection. 3. Sepsis. 4. Lactic acidosis. 5. Acute kidney injury. SECONDARY DIAGNOSES: 1. Diabetes mellitus type 2. 2. Coronary artery disease. 3. Hypothyroidism. 4. Chronic kidney disease. 5. History of deep venous thromboses, pulmonary embolisms. 6. Drhpiryz-hf-ipnful mitral regurgitation. 7. Left ureteral stent with left ureteral stricture, left hydronephrosis, most recent stent change in October 2018. 8. Depression. 9. Legally blind. STUDIES WHILE IN THE HOSPITAL: 1. Retrograde pyelogram, impression: Fluoroscopy was provided for retrograde pyelogram, stent placement. 2. CT abdomen and pelvis, impression: There is left-sided hydronephrosis with a collapsed ureter concerning for UPJ obstruction noted unchanged from prior study. There is a stable left ureteral stent noted, recommend urologic evaluation of indwelling stent. There are punctate calcifications within the left renal pelvis. 3. Abdomen/KUB, impression: Left ureteral stent. 4. Chest x-ray, impression: Mild cardiomegaly with pulmonary interstitial edema. PROCEDURES WHILE IN THE HOSPITAL: Retrograde pyelogram with left ureteral stent replacement. DISCHARGE MEDICATIONS: Home medications: 1. Acetaminophen 650 mg p.o. q.4 hours p.r.n. 2. Atenolol 50 mg p.o. daily. 3. Aspirin 81 mg p.o. daily. 4. Apixaban 5 mg p.o. b.i.d. 5. Atorvastatin 20 mg p.o. daily. 6. Fluoxetine 40 mg p.o. daily. 7. Bumetanide 2 mg p.o. daily. 8. Alphagan 1 drop bilateral eyes b.i.d. 9. Sodium chloride 5% one drop p.r.n. cloudy vision. 10. Potassium citrate 15 mEq p.o. b.i.d. 11. Omeprazole 20 mg p.o. daily. 12. Multivitamin/minerals 1 tab p.o. daily. 13. Levothyroxine 50 mcg p.o. daily. New home medications: 1. Nystatin topical powder 1 application topically b.i.d. 2. Cefdinir 300 mg p.o. b.i.d. x6 days, starting tomorrow a.m. HISTORY OF PRESENT ILLNESS/HOSPITAL COURSE: Ms. Zhao is a 73-year-old female with a past medical history of left ureteral stricture with stent change in October 2018, left hydronephrosis, who presented to the ER on the morning of with complaints of left-sided back pain. For full and complete details, please see the history and physical dictated by Dr. Trent Ferrari, but in short , the patient presents with these symptoms and was admitted to the hospital having met sepsis criteria likely related to urinary tract infection. She was started on ceftriaxone. She was noted to have a very mild lactic acidosis of 2.1, which improved with fluid resuscitation. She was also noted to have an acute on chronic kidney injury that was likely in the setting of hydronephrosis and UTI. Urology was consulted and recommended a stent placement. This was performed. The patient's Dixon was removed. She urinated prior to discharge. She was eager for discharge. She had complaints of 2/10 left-sided back pain. She also complained of cough. Chest x-ray was obtained and showed mild cardiomegaly with pulmonary interstitial edema. The patient reports that her nausea is under control. Her Dixon was removed prior to discharge and she voided prior to discharge without any difficulty. The patient denies dizziness , lightheadedness, vision changes, headache, chest pain, shortness of breath, fevers, chills, abdominal pain, nausea, vomiting, diarrhea, constipation, myalgias, or arthralgias. The patient was noted to have an elevated creatinine at admission. She has baseline CKD. She received IV fluids and her left ureteral stent was replaced. The patient was instructed to repeat BMP in approximately 3 days to monitor for resolution of ANDREW. REVIEW OF SYSTEMS: A 14-point review of systems has been performed and all the pertinent positives and negatives are in the HPI. All other systems are negative. PHYSICAL EXAMINATION: Vital Signs: Temperature 97.5 oral, heart rate 72, respiratory rate 18, oxygen saturation 96% on room air, blood pressure 112/60. General: Ms. Zhao is a well-developed, well-nourished, obese white woman who is lying in bed. She appears to be in no acute distress. HEENT: The patient is legally blind. EOMI. Hearing grossly intact. Oral mucous membranes are moist. There are no lesions. The pharynx is clear. The tongue is at midline. Cardiovascular: Regular rate and rhythm with S1, S2 present without murmurs, rubs, clicks, or gallops. There is no JVD. There is no peripheral edema. Pulmonary: Symmetrical chest expansion without use of accessory muscles. Lungs are clear to auscultation bilaterally without rhonchi , wheezes, or rales. Abdomen: Obese. Bowel sounds in all quadrants. Soft, nontender to palpation. Negative for CVA tenderness bilaterally. Musculoskeletal: 5/5 strength bilaterally in the upper and lower extremities. Neuro: The patient is awake. She is alert and oriented x3 with cranial nerves grossly intact. DISCHARGE PLAN: Ms. Zhao will be discharged to home. CONDITION: Good. DIET: 1. Heart-healthy. 2. ADA/diabetic. ACTIVITY: As tolerated. EDUCATION: 1. Urine culture is pending, please follow this up with primary care provider. 2. Recheck BMP in 3 to 5 days and follow with PCP regarding results. 3. Follow up with primary care provider in 4 to 7 days. 4. Follow up with urologist, Dr. Tripp, within 1 week. 5. Medications: Cefdinir 300 mg p.o. b.i.d., starting 01/27/19 a.m., follow urine culture results. 6. Return to the ER or nearest hospital if you experience any worsening of symptoms, chest pain or discomfort, dizziness, lightheadedness, loss of consciousness, high fevers, chills, night sweats, or any other worrisome signs or symptoms. This is a summarized report of a complex medical history and hospital stay. For further details, please see the entire medical record. TIME SPENT: Approximately 35 minutes was spent on this discharge, greater than half that time was spent [id number] with the patient discussing discharge plans and instructions. KINGS ELIZABETH [id number]/[facility] #: [id number] ANTHONY
[2019-01-27] MEDS ORDERED: cefTRIAXone(*) 2 GM in NS 0.9% 100 ML* 100 ML IVPB SCH (02:00)
--- NOTE | 2019-01-27 06:02 | ED ---
Imaging and Labs Follow Up Follow Up Type: Imaging Imaging Result: CXR: Mild cardiomegaly with pulmonary interstitial edema Patient Communication/Plan: Known diagnosis of patient Other Patient Communication/Plan: No change of tx Provider Diagnoses: UTI (urinary tract infection), Flank pain
[2019-01-27] MEDS ORDERED: Bumetanide TAB* 2 MG PO SCH (09:00)
== END 2019-01-26 17:50 | disposition home or self-care (01) ==
LOC: ED 00:08 → MED 04:22 → INTOOBSV 04:22 → UNDOADMIN 04:41 → MED 04:41
PROVIDERS: ADMIT Internal Medicine; ATTEND Internal Medicine
DX: N13.39 Other hydronephrosis (principal); N39.0 Urinary tract infection, site not specified; A41.9 Sepsis, unspecified organism; E87.2 Acidosis; N17.9 Acute kidney failure, unspecified; E11.22 Type 2 diabetes mellitus with diabetic chronic kidney disease; N18.9 Chronic kidney disease, unspecified; I25.10 Atherosclerotic heart disease of native coronary artery without angina pectoris; E03.9 Hypothyroidism, unspecified; Z86.718 Personal history of other venous thrombosis and embolism; I34.0 Nonrheumatic mitral (valve) insufficiency; F32.9 Major depressive disorder, single episode, unspecified; H54.8 Legal blindness, as defined in USA; Z79.899 Other long term (current) drug therapy
CPT/HCPCS: 36415; 71046; 74018; 74176; 74420; 80053; 81003; 81015; 83605; 85025; 86140; 87040; 87077; 87086; 87186; 96361; 96365; 96374; 96375; 99284; A9270-GY; C1876; G0378; J0696; J2250; J2270; J2405; J2704; J2765

== ENCOUNTER 2019-05-25 13:38 | Emergency (ER) | payer MEDICARE ==
--- NOTE | 2019-05-25 14:04 | ED ---
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 Patient had an appointment at [facility] today to have testing done before her surgery scheduled for , 05/27/2019. The surgery is for the removal of kidney stones and removal and replacement of a right sided renal stent which was placed in January [address] Osborn. At her appointment today, 05/25/2019, she had x-rays, an EKG, blood work, and urine culture done. She states that she was called on her way home from [facility] and was told that imaging showed fluid around her heart and was referred to the ED for further evaluation. She states she has never had fluid around her heart. Patient reports shortness of breath "for a long time" and worsening left lower extremity edema. Patient reports left sided abdominal pain from current UTI. On antibiotics currently. Patient denies any fever, nausea, vomiting, or chest pain. Symptoms rated 3/10 in severity. Symptoms aggravated by nothing. Symptoms alleviated by nothing. She denies any history of COPD, CHF, cardiac stent placement, open heart surgery. She has a Hx of a heart blockage, hx DVT, hx PE. She is on anticoagulants. On Eliquis. Medications reviewed. Allergies noted. Patient states she sees Dr. Flores for cardiology. - History of Current Complaint Chief Complaint: EDShortnessOfBreath Stated Complaint: HEART ISSUE PER PT Time Seen by Provider: 05/25/19 13:52 Hx Obtained From: Patient Hx Last Menstrual Period: N/A Onset/Duration: Started Hours Ago, Still Present Timing: Constant Current Severity: Mild Pain Intensity: 3 Pain Scale Used: 0-10 Numeric Aggravating Factor(s): Nothing Alleviating Factor(s): Nothing Associated Signs and Symptoms: Positive: Negative - fever, nausea, vomiting, or chest pain., Shortness of Breath, Other: - worsening LLE edema, left sided abdominal pain - Additional Pertinent History Primary Care Physician: [id number] - Allergy/Home Medications Allergies/Adverse Reactions: Allergies Allergy/AdvReac Type Severity Reaction Status Date / Time levofloxacin Allergy Severe Anaphylatic Verified 01/26/19 00:12 Shock nitrofurantoin Allergy Severe Hives/Diff. Verified 10/18/18 07:27 Breathing/I tching latex Allergy Intermediate Itching, Verified 10/18/18 07:27 breakout in little hives Sulfa (Sulfonamide Allergy Intermediate Hives Verified 10/18/18 07:27 Antibiotics) levothyroxine Allergy Rash And Verified 10/18/18 07:27 Itching Home Medications: Home Medications Atenolol TAB* [Tenormin TAB* 50 MG] 50 mg PO DAILY 05/25/19 [History Confirmed 05/25/19] Butalbital/Acetaminophen [Butalbital/Acetaminophen 50-325 mg] 1 - 2 tab PO TID PRN 05/25/19 [History Confirmed 05/25/19] Triamcinolone 0.1% CREAM (NF) [Kenalog 0.1% Cream (NF)] 1 applic TOPICAL BID [History Confirmed 05/25/19] PMH/Surg Hx/FS Hx/Imm Hx Endocrine/Hematology History: Reports: Hx Anticoagulant Therapy - eliquis and ASA, Hx Diabetes - type 2- diet controlled, Hx Thyroid Disease - hypothyroidism- ON SYNTHROID Cardiovascular History: Reports: Hx Coronary Artery Disease, Hx Deep Vein Thrombosis, Hx Embolism - multiple PEs, Hx Hypercholesterolemia, Hx Hypertension - ON MEDICATION FOR, Hx Peripheral Vascular Disease Denies: Hx Congestive Heart Failure, Other Cardiovascular Problems/Disorders Respiratory History: Reports: Hx Pulmonary Embolism - POST OP AFTER SHOULDER REPLACEMENT 2012, 2014 Denies: Hx Asthma, Hx Chronic Obstructive Pulmonary Disease (COPD), Other Respiratory Problems/Disorders GI History: Denies: Hx Gall Bladder Disease - gall bladder removed, Hx Ulcer, Other GI Disorders History: Reports: Hx Kidney Infection - HX OF-, Hx Kidney Stones - left-HX OF AND CURRENTLY, Hx Renal Disease - LT URETERAL STRICTURE. LT STENT Denies: Hx Dialysis, Other Problems/Disorders Musculoskeletal History: Reports: Hx Arthritis - GENERAL, Other Musculoskeletal History - Bilateral knee replacements, R shoulder replacement, fractured R elbow Sensory History: Reports: Hx Cataracts - BILATERAL, Hx Contacts or Glasses, Hx Glaucoma - BILATERAL, Hx Legally Blind, Hx Macular Degeneration, Hx Vision Problem, Hx Hearing Aid, Hx Hearing Problem, Other Sensory Impairments Denies: Hx Deafness Opthamlomology History: Reports: Hx Cataracts - BILATERAL, Hx Contacts or Glasses, Hx Glaucoma - BILATERAL, Hx Legally Blind, Hx Macular Degeneration, Hx Vision Problem, Other Sensory Impairments Neurological History: Reports: Hx Migraine - Hx of none recently, Hx Seizures - Hx of- last seizure 10 years ago Denies: Other Neuro Impairments/Disorders Psychiatric History: Reports: Hx Autism, Hx Depression - ON MEDICATION FOR Denies: Hx Anxiety - Cancer History Hx Chemotherapy: No Hx Radiation Therapy: No - Surgical History Surgery Procedure, Year, and Place: Hysterectomy September 2014, 1971 R eye cataract removed, 1989 L eye cataract removed, bilateral knee replacements, R shoulder replacement, 2011 cholecystectomy, plate/screws in R elbow, kidney stone treatment x 3 august 09 3 kidney stones remover and litho. done on others bilaterly. D&C hysteroscopy versus point resection 2010 Hx Anesthesia Reactions: No Infectious Disease History: No Infectious Disease History: Denies: Hx Hepatitis, Hx Human Immunodeficiency Virus (HIV), Hx of Known/ Suspected MRSA, Traveled Outside the [place] in Last 30 Days Comment Only: History Other Infectious Disease - kidney infection - Family History Known Family History: Positive: Cardiac Disease, Hypertension - Social History Alcohol Use: Rare Alcohol Amount: 3-4 PER YEAR Hx Substance Use: No Substance Use Type: Reports: None Hx Tobacco Use: No Smoking Status (MU): Never Smoked Tobacco Have You Smoked in the Last Year: No Review of Systems Negative: Fever Negative: Chest Pain Positive: Shortness Of Breath Positive: Abdominal Pain. Negative: Vomiting, Nausea Positive: Edema - LLE All Other Systems Reviewed And Are Negative: Yes Physical Exam - Summary Physical Exam Summary: Constitutional: Morbid obesity, Alert. (-) Distressed Skin: Warm, Dry HENT: Normocephalic; Atraumatic Eyes: Conjunctiva normal Neck: Musculoskeletal ROM normal neck. (-) JVD, (-) Stridor, (-) Tracheal deviation Cardio: Rhythm regular, rate normal, Heart sounds normal; Intact distal pulses; The pedal pulses are 2+ and symmetric. Radial pulses are 2+ and symmetric. (-) Murmur Pulmonary/Chest wall: Effort normal. (-) Respiratory distress, (-) Wheezes, (-) Rales Abd: Soft, (-) tenderness, (-) Distension, (-) Guarding, (-) Rebound Musculoskeletal: Bilateral lower extremity edema Lymph: (-) Cervical adenopathy Neuro: Alert, Oriented x3 Psych: Mood and affect Normal Triage Information Reviewed: Yes Vital Signs On Initial Exam: Initial Vitals Temp Pulse Resp BP Pulse Ox 98.2 F 73 18 194/88 99 05/25/19 13:42 05/25/19 13:42 05/25/19 13:42 05/25/19 13:42 05/25/19 13:42 Vital Signs Reviewed: Yes Procedures - Sedation Patient Received Moderate/Deep Sedation with Procedure: No Diagnostics - Vital Signs Vital Signs Temp Pulse Resp BP Pulse Ox 05/25/19 13:42 98.2 F 73 18 194/88 99 - Laboratory Result Diagrams: 05/25/19 14:09 05/25/19 14:09 Lab Statement: Any lab studies that have been ordered have been reviewed, and results considered in the medical decision making process. - Radiology chest x-ray Summary of Radiographic Findings: NO ACTIVE CARDIOPULMONARY DISEASE. ED Physician has reviewed the report. - EKG 14:02 Cardiac Rate: NL - 71 BPM EKG Rhythm: Sinus Rhythm Summary of EKG Findings: No ischemic changes. ED physician has reviewed and interpreted this EKG. - Additional Comments Diagnostic Additional Comments: Transthoracic Echocardiogram shows, per command and control specialist: - Left ventricle: Systolic function is normal. The estimated ejection fraction is 55-60%. Wall motion is normal; there are no regional wall motion abnormalities. - Left atrium : The atrium is mildly dilated. - Mitral valve: There is mild regurgitation. - Aortic valve: There is no evidence of stenosis. - Tricuspid valve: There is trace regurgitation. - Pericardium, extracardiac: There is no significant pericardial effusion. - Pulmonary arteries: Systolic pressure can not be accurately estimated. ED physician has reviewed this report. Disposition - Course Course Of Treatment: 73 year old F with cardiac hx complains of "fluid around her heart" noted today 05/25/2019 after preoperative appointment. Patient also reports shortness of breath "for a long time" and worsening left lower extremity edema. Bloodwork results with no significant abnormalities except for a BUN of 27, creatinine of 1.42, glucose of 213, and a B-Natriuretic Peptide of 174. Urinalysis results with no significant abnormalities except for blood 2+, leukocyte esterase 3+, WBC 3+, RBC 2+, squamous epith cells, yeast , glucose 1+. An EKG shows sinus rhythm with a rate of 71 BPM and no ischemic changes. CXR shows, per radiologist, NO ACTIVE CARDIOPULMONARY DISEASE. Transthoracic Echocardiogram shows, per command and control specialist: - Left ventricle: Systolic function is normal. The estimated ejection fraction is 55-60%. Wall motion is normal; there are no regional wall motion abnormalities. - Left atrium : The atrium is mildly dilated. - Mitral valve: There is mild regurgitation. - Aortic valve: There is no evidence of stenosis. - Tricuspid valve: There is trace regurgitation. - Pericardium, extracardiac: There is no significant pericardial effusion. - Pulmonary arteries: Systolic pressure can not be accurately estimated. Patient will be discharged with follow up from Dr. Balbuena. The patient is agreeable with this plan. - Diagnoses Provider Diagnoses: Peripheral edema Discharge ED - Sign-Out/Discharge Documenting (check all that apply): Patient Departure - Discharge Plan Condition: Stable Disposition: HOME Patient Education Materials: Edema (ED) Referrals: Aby Balbuena MD [Medical Doctor] - 05/26/19 Additional Instructions: Follow-up with Dr. Balbuena tomorrow, 05/26/2019. Return to the emergency department for new or worsening symptoms. - Billing Disposition and Condition Condition: STABLE Disposition: Home - Attestation Statements Document Initiated by Kingibe: Yes Documenting Scribe: Freda Neal Provider For Whom Irwin is Documenting (Include Credential): Max Garcia DO Scribe Attestation: Veronica Maki Tiffany Liu, kingibed for Max aGrcia DO on 05/25 at 1828. Scribe Documentation Reviewed: Yes Provider Attestation: The documentation as recorded by the Veronica whyte Tiffany Liu accurately reflects the service I personally performed and the decisions made by Max hendrickson DO Status of Scribabelardo Document: Viewed
[2019-05-25 14:25] LABS: ABS Eosinophils 0.1 10^3/ul (0-0.6); ABS Lymphocytes 1.4 10^3/ul (1.0-4.8); ABS Monocytes 0.5 10^3/ul (0-0.8); ABS Neutrophils 5.7 10^3/ul (1.5-7.7); Eosinophil % 1.7 %; Hematocrit 42 % (35-47); Hemoglobin 14.2 g/dL (12.0-16.0); Lymphocyte % 17.7 %; Mean Corpuscular HGB Conc 34 g/dL (31-36); Mean Corpuscular Hemoglobin 31 pg (27-31); Mean Corpuscular Volume 92 fL (80-97); Platelet Count 231 10^3/uL (150-450); Red Blood Count 4.57 10^6 /uL (3.70-4.87); Red Cell Distribution Width 15 % (10-15); White Blood Count 7.7 10^3/uL (3.5-10.8)
[2019-05-25 14:31] LABS: Albumin 4.1 g/dL (3.2-5.2); Calcium 9.5 mg/dL (8.6-10.3); Potassium 4.9 mmol/L (3.5-5.0); Total Bilirubin 0.3 mg/dL (0.2-1.0)
[2019-05-25 14:37] LABS: Albumin/Globulin Ratio 1.2 (1-3); EGFR Non-African American 36.4 (>60); Globulin 3.4 g/dL (2-4); Total Protein 7.5 g/dL (6.4-8.9)
--- OUTSIDE RECORDS SUMMARY | 2019-05-25 14:58 | XMS REPORT | Summary of Care ---
:1945 Author Organization [facility] Address [address] [place] [address] Care Team Providers Name Role Phone Popeye Rojo MD Primary Care Provider Reason for Visit Reason Comments Follow-up discuss scan results Encounter Details Date Type Department Care Team Description 05/25/2019 Office Visit [facility] Urology Huy Johnson V, Dyspnea on exertion (Primary Dx); [address] [facility] Ureteral stricture, left [address] [facility] [place] [facility] [address] [address] [address] [phone] [place] [address] Allergies Active Allergy Reactions Severity Noted Date Comments Latex Rash Low 12/19/2013 Levofloxacin In D5w Anaphylaxis High 12/19/2013 Levothyroxine Itching, Rash Low 04/27/2019 Nitrofuran Derivatives Shortness Of Breath, Itching High 04/27/2019 Sulfa Antibiotics Rash Low 12/19/2013 documented as of this encounter (statuses as of 05/25/2019) Medications Medication Sig Dispensed Refills Start Date End Date Status atenolol (TENORMIN) 50 Take 50 mg by 0 11/09/2013 Active MG tablet mouth daily. aspirin 81 MG chewable Chew 81 mg by 0 Active tablet Mouth daily. bumetanide (BUMEX) 1 MG Take 1 mg by 0 Active tablet mouth daily. levothyroxine Take 1 tablet by 30 tablet 0 12/21/2013 Active (SYNTHROID) 25 MCG mouth daily. tablet sodium chloride Place 1 drop 0 Active (AK-NACL) 5 % ophthalmic into the left ointment eye. Multiple Take 1 tablet by 0 Active Vitamins-Minerals mouth daily. (MULTIVITAMIN WITH MINERALS) tablet atorvastatin (LIPITOR) Take 20 mg by 0 Active 20 MG tablet mouth daily. Brimonidine Tartrate 0.1 Apply to eye 0 04/08/2014 Active % Ophthalmic Solution (ALPHAGAN P) Apixaban 5 MG Oral Take 5 mg by 0 Active Tablet (ELIQUIS) mouth Two Times Daily Omeprazole 20 MG Oral Take 20 mg by 0 Active Capsule Delayed Release mouth daily (PriLOSEC) FLUoxetine HCl 20 MG Take 20 mg by 0 Active Oral Capsule (PROZAC) mouth daily Potassium Citrate ER 15 0 04/13/2019 Active MEQ (1620 MG) Oral Tablet Extended Release Cefdinir 300 MG Oral 0 05/17/2019 Active Capsule (CEFDINYL) documented as of this encounter (statuses as of 05/25/2019) Active Problems Problem Noted Date Ureteral stricture, left 04/27/2019 Last Assessment & Plan: I addressed Nephrolithiasis and ureteral stricture with Christel today. This is a follow up of a pre-existing problem for us and has worsened slightly. I discussed imaging findings, surgical treatment opt ions and conservative treatment options with her today. Based upon our discussion today, as well as imaging and laboratory findings, it seems that the patient currently has an asymptomatic stone burden in a poorly functional kidney with recurrent infections and a strictured ureter. She is short of breath at baseline, new swelling. Concerns for CHF and so will get some labs and CXR today. We discussed the treatment options and alternatives in this situation including Ureteroscopy, Laparoscopic Nephrectomy and Ureteral stent or nephrostomy. She is at very high risk for nephrectomy given t he large retroperitoneal hematoma she had previously developed and her poor functional status and morbid obesity (BMI 56.5). History of hysterectomy and cholecystectomy. I also spoke with her primary urologist Dr Staples today. Christel's wishes are to proceed as planned with ureteroscopy and metallic ureteral stent placement. She understands she will probably continue to get infections from time to time and have some stent colic. We discussed her elevated risk with nephrectomy at length. Right supracondylar humerus fracture 01/03/2014 Humerus distal fracture 12/19/2013 Kidney stones Recurrent UTI Legally blind documented as of this encounter (statuses as of 05/25/2019) Social History Tobacco Use Types Packs/Day Years Used Date Never Smoker Smokeless Tobacco: Never Used Alcohol Use Drinks/Week oz/Week Comments Yes Rarely Sex Assigned at Date Recorded Not on file Job Start Date Occupation Industry Not on file Not on file Not on file Travel History Travel Start Travel End No recent travel history available. documented as of this encounter Last Filed Vital Signs Vital Sign Reading Time Taken Comments Blood Pressure 164/79 05/25/2019 9:22 AM EST Pulse 72 05/25/2019 9:22 AM EST Temperature 36.6 05/25/2019 9:22 AM EST C (97.8 F) Respiratory Rate 16 05/25/2019 9:22 AM EST Oxygen Saturation 96% 05/25/2019 9:22 AM EST Inhaled Oxygen Concentration - - Weight 158.8 kg (350 lb) 05/25/2019 9:22 AM EST Height 167.6 cm (5' 5.98") 05/25/2019 9:22 AM EST Body Mass Index 56.52 05/25/2019 9:22 AM EST documented in this encounter Progress Notes Huy Johnson MD - 05/25/2019 9:30 AM EST Urology Follow-up Note Subjective History of Present Illness: Christel Zhao was last seen in the Urology practice clinic at [facility] on 04/27/2019 for evaluation and possible treatment of left atrophickidney with recurrent uti in the setting of nephrolithiasis and ureteral stricture disease.The patient is a 73-year-old female who has been followed by Dr. Osborn in [place] for several years. She initially presented with bilateral renal calculi composed of calcium phosphate secondary to topiramate use. She underwent several ureteroscopies and upon removal of a left ureteral stent, developed a retroperitoneal hematoma. This resulted in the interval development of a ureteral stricture disease status post balloon dilation x2. The patient's outside urologist has attempted several times to clear her of her lower pole stone burden on the left with minimal success. She was noted to have a significant dilation of the left collecting system, making ureteroscopy very difficult and fragment retrievalnearly impossible in the setting of cloudy urine with respiratory movement of the kidney. She tends to become septic every time stent removal is attempted. . At that visit we discussed obtaining a nuclear renogram, and stent/ureteroscopy vs nephrectomy. In the interval she had a nuclear renogram demonstrating 11% differential function on the left. She continues to have stent colic symptoms. She feels she can not go on vacation or enjoy her life. She can walk 50 feet or less before becoming winded. She has increased leg swelling and low urine output for one week. She does not feel well. The patient's past medical, surgical, medication, allergy, family, and social histories were reviewed and noncontributory to this illness/condition except as noted below: PMH: The patient has a past medical history of Cataract, Coronary artery disease, Depression, Diabetes mellitus, GERD (gastroesophageal reflux disease), H/O blood clots, Hearing loss, Heart murmur, Hypertension, Kidney stones, Legally blind, Low back pain, Migraine, Recurrent UTI, Renal disorder, Seizures (2009?), Thyroid disease, and Ureteral stricture, left (04/27/2019). PSH: The patient has a past surgical history that includes Tonsillectomy; Joint replacement; Orif Humerus (Right, 12/19/2013); kidney stone blast; Cataract extraction, bilateral; Ureteral stent placement; Cardiac catheterization (05/29/2012); Hysterectomy (10/11/2014); Total shoulder replacement (Right, 08/2012); Cataract extraction; and Knee Arthroplasty ( Bilateral). Meds: The patient has a current medication list which includes the following prescription(s): apixaban, aspirin, atenolol, atorvastatin, brimonidine, bumetanide, cefdinir, fluoxetine, levothyroxine, multivitamin with minerals, omeprazole, potassium citrate, and sodium chloride. Allergies: The patient is allergic to levaquin [levofloxacin in d5w]; nitrofuran derivatives; latex;levothyroxine; and sulfa antibiotics. FH: The patient's family history includes Diabetes in her daughter and father; Leukemia in her father. SH: The patient reports that she has never smoked. She has never used smokeless tobacco. She reports current alcohol use. She reports that she does not use drugs. Review of Systems Constitutional: Negative. Negative for chills, fever and malaise/fatigue. HENT: Negative. Eyes: Negative. Negative for blurred vision. Respiratory: Positive for shortness of breath and wheezing. Negative for cough. Cardiovascular: Positive for leg swelling. Negative for chest pain and palpitations. Gastrointestinal: Negative. Negative for abdominal pain, constipation, diarrhea , nausea and vomiting. Genitourinary: Positive for flank pain. Negative for dysuria, frequency, hematuria and urgency. Musculoskeletal: Negative for back pain. Skin: Negative. Neurological: Negative. Negative for seizures. Endo/Heme/Allergies: Negative. Does not bruise/bleed easily. Psychiatric/Behavioral: Negative. Negative for substance abuse. Objective Physical Exam BP 164/79 (BP Location: Left arm, Patient Position: Sitting, Cuff size: Regular ) Comment (BP Location): lower left arm | Pulse 72 | Temp 36.6 C | Resp 16 | Ht 1.676 m | Wt (!) 158.8 kg (350 lb) | SpO2 96% | BMI 56.52 kg/m Physical Exam Constitutional: General: She is not in acute distress. Appearance: She is well-developed. She is obese. She is ill-appearing. HENT: Head: Normocephalic and atraumatic. Eyes: General: Right eye: No discharge. Left eye: No discharge. Conjunctiva/sclera: Conjunctivae normal. Neck: Musculoskeletal: Normal range of motion. Trachea: No tracheal deviation. Cardiovascular: Rate and Rhythm: Normal rate and regular rhythm. Pulmonary: Effort: No respiratory distress. Breath sounds: Wheezing present. Comments: Effort seems slightly elevated Abdominal: General: There is no distension. Palpations: Abdomen is soft. Tenderness: There is no abdominal tenderness. Musculoskeletal: General: Swelling present. No deformity. Comments: 2+ pitting BLE Skin: General: Skin is warm and dry. Neurological: Mental Status: She is alert and oriented to person, place, and time. Psychiatric: Behavior: Behavior normal. Thought Content: Thought content normal. The following objective data was personally reviewed and interpreted by me. Lab Review (30 Day): 141 103 26 / 4.7 25 1.28 \\ 179 GFR: 41 Ca: 9.2 iCa: None PTH: None Vit D: None Uric acid: None 05/25/2019 7.6 \\ 13.4 / / 41.4 \\ 41.4 05/25/2019 Imaging: The patient had a Nuclear Renogram performed prior to today's visit. These images were reviewed and interpreted by me personally today. Findings include 11% left function with no obstruction. . Assessment It was a pleasure seeing Christel Zhao in clinic today. The primary encounter diagnosis was Dyspnea on exertion. A diagnosis of Ureteral stricture, left was also pertinent to this visit.. Ureteral stricture, left I addressed Nephrolithiasis and ureteral stricture with Christel today. This is a follow up of a pre-existing problem for us and has worsened slightly. I discussed imaging findings, surgical treatment options and conservative treatment options with her today. Based upon our discussion today, as well as imaging and laboratory findings, it seems that the patient currently has an asymptomatic stone burdenin a poorly functional kidney with recurrent infections and a strictured ureter. She is short of breath at baseline, new swelling. Concerns for CHF and so will get some labs and CXR today. We discussed the treatment options and alternatives in this situation including Ureteroscopy, Laparoscopic Nephrectomy and Ureteral stent or nephrostomy. She is at very high risk for nephrectomy given the large retroperitoneal hematoma she had previously developed and her poor functional status and morbid obesity ( BMI 56.5). History of hysterectomy and cholecystectomy. I also spoke with her primary urologist Dr Staples today. Christel's wishes are to proceed as planned with ureteroscopy and metallic ureteral stent placement. She understands she will probably continue to get infections from time to time and have some stent colic. We discussed her elevated risk with nephrectomy at length. Plan Return for Left, Ureteroscopy. Orders Placed This Encounter Urine Culture XR Chest Frontal and Lateral Basic metabolic panel proBNP CBC Urinalysis with microscopic EKG 12 lead EKG 12-LEAD - CMAXX REPORT EKG 12-LEAD - CMAXX REPORT Complex Uroflowmetry Bladder scan, post void Total time spent with patient was over 40 minutes, more than half of which was on counseling and coordination of care. Thank you for allowing us to participate in the care of this patient. Please do not hesitate to contact us should you have any questions or concerns. Huy Johnson MD [employer] Agent of Urology Chief of Endourology Service [facility] Urology 12 :27 PM ESTdocumented in this encounter Plan of Treatment Date Type Specialty Care Team Description 05/27/2019 Hospital Encounter Surgery Huy Johnson MD [address] [facility] [address], [place] [address] Name Type Priority Associated Diagnoses Date/Time Urinalysis with Lab Routine Dyspnea on exertion 05/25/2019 9:59 AM microscopic EST Urine Culture Microbiology Routine Dyspnea on exertion 05/25/2019 9:59 AM EST Health Maintenance Due Date Last Done Comments Hepatitis C Screening (B. 1945 [id number]) DTaP,Tdap,and Td Vaccines (1 - 1953 Tdap) Breast Cancer Screening 2 years 1996 Colon Cancer Screening 10 yrs 1996 Osteoporosis Screening 2 yr 11/03/2011 Pneumococcal Vaccine: 65+ Years (1 11/03/2011 of 2 - PCV13) MMR Vaccines (1 of 1 - Standard 04/11/2016 series) Varicella Vaccines (1 of 2 - 04/11/2016 03/14/2016 2-dose childhood series) Zoster Vaccines (2 of 3) 05/09/2016 03/14/2016 Influenza Vaccine 01/05/2019 HIB Vaccines Aged Out No longer eligible based on patient's age to complete this topic Hepatitis A Vaccines Aged Out No longer eligible based on patient's age to complete this topic Hepatitis B Vaccines Aged Out No longer eligible based on patient's age to complete this topic IPV Vaccines Aged Out No longer eligible based on patient's age to complete this topic Pneumococcal Vaccine: Pediatrics Aged Out No longer eligible based on (0 to 5 Years) and At-Risk patient's age to complete Patients (6 to 64 Years) this topic documented as of this encounter Implants Implanted Type Area Client Service Executive Device Shelf Model / Identifier Expiration Serial / Date Lot Screw Str Lk S/T 3.5 24mm - [id number] Right: [employer]ES [employer]UMA [id number] / Implanted: Qty: 1 on 12/19/2013 by Krishna Rodriguez MD at [facility] 5[facility] Humerus / Screw Cortx S/T 3.5mm 22mm - [id number] Right: [employer] [id number] / Implanted: Qty: 3 on 12/19/2013 by Krishna Rodriguez MD at [facility] Humerus / Plate 3.5 Dist.Humerus 6hl Rt - [id number] Right: [employer]ES [employer]UMA [id number] / Implanted: Qty: 1 on 12/19/2013 by Krishna Rodriguez MD at [facility] 5[facility] Humerus / Screw Cortx S/T 3.5mm 24mm - [id number] Right: [employer] [id number] / Implanted: Qty: 1 on 12/19/2013 by Krishna Rodriguez MD at [facility] Humerus / Screw Str Lk S/T 3.5 26mm - [id number] Right: [employer]UMA [id number] / Implanted: Qty: 1 on 12/19/2013 by Krishna Rodriguez MD at [facility] 5E Humerus / Screw Str Lk S/T 3.5 28mm - [id number] Right: [employer]UMA [id number] / Implanted: Qty: 1 on 12/19/2013 by Krishna Rodriguez MD at OR 5E Humerus / documented as of this encounter Procedures Procedure Name Priority Date/Time Associated Comments Diagnosis EKG 12-LEAD - CMAXX 05/25/2019 11:00 REPORT AM EST EKG 12-LEAD - CMAXX 05/25/2019 11:00 REPORT AM EST EKG 12-LEAD Routine 05/25/2019 11:00 Dyspnea on exertion Results for this AM EST procedure are in the results section. URINALYSIS WITH Routine 05/25/2019 9:59 Dyspnea on exertion MICROSCOPIC AM EST BLADDER SCAN, POST Routine 05/25/2019 9:55 Dyspnea on exertion VOID AM EST COMPLEX UROFLOWMETRY Routine 05/25/2019 9:55 Dyspnea on exertion AM EST documented in this encounter Results XR Chest Frontal and Lateral (05/25/2019 11:26 AM EST) Specimen Impressions Performed At IMPRESSION: [facility] 1. There are stable findings consistent with mild to moderate chronic obstructive pulmonary disease. 2. There is no evidence of acute airspace disease, such as pneumonia. 3. There is stable moderate osteopenia and moderate to marked degenerative bony change throughout the study. 4. The remainder of the chest is unchanged and otherwise normal. Narrative Performed At CLINICAL HISTORY: [facility] 73-year-old female with dyspnea, wheezing and bilateral lower extremity edema, who presents for initial radiographic evaluation. COMPARISON STUDY: Compared to the prior chest x-rays dated 12/19/2013. TECHNIQUE: Erect PA and lateral views of the chest were obtained. FINDINGS: There is stable moderate osteopenia and moderate to marked degenerative bony change throughout the study. There is increase in the thoracic kyphosis and mild to moderate mid to lower thoracic ankylosis. The postoperative changes of the visualized right shoulder are stable and the remainder of the chest wall and bony thorax are unchanged and otherwise normal. The cardiac and mediastinal structures are normal. The lungs are mildly hyperinflated with flattening of the hemidiaphragms and increase in the retrosternal airspace. The lungs are clear and the interstitial markings are normal. There is no evidence of pleural disease. Procedure Note Interface, Received Via [employer] System - 05/25/2019 12:23 PM EST CLINICAL HISTORY: 73-year-old female with dyspnea, wheezing and bilateral lower extremity edema, who presents for initial radiographic evaluation. COMPARISON STUDY: Compared to the prior chest x-rays dated 12/19/2013. TECHNIQUE: Erect PA and lateral views of the chest were obtained. FINDINGS: There is stable moderate osteopenia and moderate to marked degenerative bony change throughout the study. There is increase in the thoracic kyphosis and mild to moderate mid to lower thoracic ankylosis. The postoperative changes of the visualized right shoulder are stable and the remainder of the chest wall and bony thorax are unchanged and otherwise normal. The cardiac and mediastinal structures are normal. The lungs are mildly hyperinflated with flattening of the hemidiaphragms and increase in the retrosternal airspace. The lungs are clear and the interstitial markings are normal. There is no evidence of pleural disease. IMPRESSION: 1. There are stable findings consistent with mild to moderate chronic obstructive pulmonary disease. 2. There is no evidence of acute airspace disease, such as pneumonia. 3. There is stable moderate osteopenia and moderate to marked degenerative bony change throughout the study. 4. The remainder of the chest is unchanged and otherwise normal. Performing Organization Address City/State/Zipcode Phone Number [facility] [address] [place] [address] EKG 12-LEAD - CMAXX REPORT (05/25/2019 11:00 AM EST) Narrative Performed At EKG 12-LEAD - CMAXX REPORT (05/25/2019 11:00 AM EST) Narrative Performed At EKG 12 lead (05/25/2019 11:00 AM EST) Specimen Narrative Performed At Ventricular Rate: [facility] EKG 71 BPM Atrial Rate: 71 BPM P-R Interval: 146 ms QRS Duration: 86 ms Q-T Interval: 380 ms QTC Calculation(Bazett): 412 ms P Moab: 39 degrees R Moab: -1 degrees T Moab: 29 degrees : NORMAL SINUS RHYTHM : NORMAL ECG : WHEN COMPARED WITH ECG OF 19-DEC-2013 01:35, : HEART RATE IS SLOWER : Confirmed by Krishna Nassar ([id number]) on 05/25/2019 11:18:36 : AM Procedure Note Interface, Received Via [employer] - 05/25/2019 11:18 AM EST Ventricular Rate: 71 BPM Atrial Rate: 71 BPM P-R Interval: 146 ms QRS Duration: 86 ms Q-T Interval: 380 ms QTC Calculation(Bazett): 412 ms P Moab: 39 degrees R Moab: -1 degrees T Moab: 29 degrees : NORMAL SINUS RHYTHM : NORMAL ECG : WHEN COMPARED WITH ECG OF 19-DEC-2013 01:35, : HEART RATE IS SLOWER : Confirmed by Krishna Nassar ([id number]) on 05/25/2019 11:18:36 : AM Performing Organization Address City/[facility] Phone Number U EKG CBC (05/25/2019 10:23 AM EST) White Blood Cell 7.6 4 - 10 10*3/uL [facility] at Red Blood Cell 4.52 4.1 - 5.3 [facility] 10*6/uL [facility] at Hemoglobin 13.4 11.5 - 15.5 [facility] g/dL [facility] at Hematocrit 41.4 36 - 45 % [facility] Mean Cell Volume 91.7 80 - 96 fL [facility] Mean Cell Hemoglobin 29.6 27 - 33 pg [facility] Mean Cell Hgb Conc 32.3 32.0 - 36.0 [facility] g/dL [facility] at Red Cell Dist Width 15.2 (H) 11.5 - 14.5 % [facility] Platelet Count 212 150 - 400 [facility] 10*3/uL [facility] at Specimen EDTA Whole Blood Performing Organization Address City/[facility]/Zipcode Phone Number [facility] AT [address] [address] [phone] [facility] at [address] [address] proBNP (05/25/2019 10:23 AM EST) proBNP 912 (H) <125 pg/mL [facility] at Specimen Plasma Performing Organization Address City/[facility]/Zipcode Phone Number [facility] PATHOLOGY AT [facility] [address] [place] [address] [facility] at [address] [place] [phone] Basic metabolic panel (05/25/2019 10:23 AM EST) Bicarbonate 25 22 - 29 mmol/L [facility] at Chloride 103 98 - 107 mmol/L [facility] at Creatinine 1.28 (H) 0.50 - 0.90 [facility] mg/dL [facility] Glucose 179 (H) 70 - 140 mg/dL [facility] at CG Potassium 4.7 3.4 - 5.1 [facility] mmol/L [facility] at CG Sodium 141 136 - 145 [facility] mmol/L [facility] at Blood Urea Nitrogen 26 (H) 8 - 23 mg/dL [facility] at Anion Gap 13 8 - 15 mmol/L [facility] at Osmolality, Lio 301 (H) 275 - 300 [facility] mosm/kg [facility] at CG BUN/Cre Ratio 20 [facility] at CG Calcium 9.2 8.8 - 10.2 [facility] mg/dL [facility] GFR Non 41 (L) >60 [facility] Rwandan 2008 CDK-EPI mL/min/1.73m2 [facility] GFR 47 (L) >60 [facility] 2008 CKD-EPI mL/min/1.73m2 [facility] at Specimen Plasma Performing Organization Address City/State/Zipcovt Phone Number [facility] PATHOLOGY AT [facility] [address] [place] [address] [facility] at [address] [address] documented in this encounter Visit Diagnoses Diagnosis Dyspnea on exertion - Primary Other dyspnea and respiratory abnormality Ureteral stricture, left Stricture or kinking of ureter documented in this encounter
--- OUTSIDE RECORDS SUMMARY | 2019-05-25 14:58 | XMS REPORT | Summary of Care ---
:1945 Author Organization [facility] Address [address] [place] [address] Care Team Providers Name Role Phone Popeye Rojo MD Primary Care Provider Reason for Referral Diagnostic Radiology (Routine) Status Reason Specialty Diagnoses / Referred By Referred To Procedures Contact Contact Authorized Radiology Diagnoses Kidney stones Huy Johnson V, Procedures NM Kidney Function with Meño OBANDO [address] [address] Email: [email or web address] Reason for Visit Reason Comments New Patient Nephrolithiasis Urinary Tract Infection Encounter Details Date Type Department Care Team Description 04/27/2019 Office Visit [facility] Urology Huy Johnson V, Ureteral stricture, left (Primary Dx); [address] Siddiqi MD Kidney stones [place] [address] [address] [facility] [address] [place] [id number] Allergies Active Allergy Reactions Severity Noted Date Comments Latex Rash Low 12/19/2013 Levofloxacin In D5w Anaphylaxis High 12/19/2013 Levothyroxine Itching, Rash Low 04/27/2019 Nitrofuran Derivatives Shortness Of Breath, Itching High 04/27/2019 Sulfa Antibiotics Rash Low 12/19/2013 documented as of this encounter (statuses as of 04/28/2019) Medications Medication Sig Dispensed Refills Start Date End Date Status atenolol (TENORMIN) Take 50 mg 0 11/09/2013 Active 50 MG tablet by mouth daily. aspirin 81 MG Chew 81 mg 0 Active chewable tablet by Mouth daily. bumetanide (BUMEX) Take 1 mg by 0 Active 1 MG tablet mouth daily. levothyroxine Take 1 30 tablet 0 12/21/2013 Active (SYNTHROID) 25 MCG tablet by tablet mouth daily. sodium chloride Place 1 drop 0 Active (AK-NACL) 5 % into the ophthalmic ointment left eye. Multiple Take 1 0 Active Vitamins-Minerals tablet by (MULTIVITAMIN WITH mouth daily. MINERALS) tablet atorvastatin Take 20 mg 0 Active (LIPITOR) 20 MG by mouth tablet daily. Brimonidine Apply to eye 0 04/08/2014 Active Tartrate 0.1 % Ophthalmic Solution (ALPHAGAN P) Apixaban 5 MG Oral Take 5 mg by 0 Active Tablet (ELIQUIS) mouth Two Times Daily Omeprazole 20 MG Take 20 mg 0 Active Oral Capsule by mouth Delayed Release daily (PriLOSEC) FLUoxetine HCl 20 Take 20 mg 0 Active MG Oral Capsule by mouth (PROZAC) daily Potassium Citrate 0 04/13/2019 Active ER 15 MEQ (1620 MG) Oral Tablet Extended Release topiramate Take 75 mg 0 11/25/2013 Discontinued (TOPAMAX) 50 MG by mouth 0 (Therapy tablet daily. completed) brimonidine 1 drop Two 0 Discontinued (ALPHAGAN P) 0.1 % Times Daily. 0 SOLN zolmitriptan Take 2.5 mg 0 Discontinued (ZOMIG) 2.5 MG by mouth as 0 (Therapy tablet needed for completed) Migraine. lisinopril 0 03/06/2014 Discontinued (PRINIVIL,ZESTRIL) 0 (Therapy 5 MG tablet completed) Rivaroxaban Take 15 mg 0 Discontinued (XARELTO) 15 MG by mouth 0 (Therapy TABS daily. completed) documented as of this encounter (statuses as of 04/28/2019) Active Problems Problem Noted Date Ureteral stricture, left 04/27/2019 Last Assessment & Plan: I addressed Hydronephrosis with Christel today. This is a new problem for us and has significantly worsened. I discussed imaging findings, additional diagnostic testing, surgical treatment options and con servative treatment options with her today. I believe her left kidney to be atrophic with minimal function. I will order a MAG3 renal scan to assess differential function and see her with results. This will help us better understand if we should repair the stricture, or perform nephrectomy, or simply manage her with chronic indwelling stents. I reviewed metallic ureteral stent placement with her today . Her desire is to swap out her current plastic stent for a metallic stent and if possible remove her existing left stones at that time in an effort to reduce infections. This seems like a reasonable first step. Right supracondylar humerus fracture 01/03/2014 Humerus distal fracture 12/19/2013 Kidney stones Recurrent UTI Legally blind documented as of this encounter (statuses as of 04/28/2019) Social History Tobacco Use Types Packs/Day Years Used Date Never Smoker Smokeless Tobacco: Never Used Alcohol Use Drinks/Week oz/Week Comments No Sex Assigned at Date Recorded Not on file Job Start Date Occupation Industry Not on file Not on file Not on file Travel History Travel Start Travel End No recent travel history available. documented as of this encounter Last Filed Vital Signs Vital Sign Reading Time Taken Comments Blood Pressure 146/82 04/27/2019 11:47 AM EST Pulse 89 04/27/2019 11:47 AM EST Temperature 36.7 04/27/2019 11:47 AM EST C (98 F) Respiratory Rate 16 04/27/2019 11:47 AM EST Oxygen Saturation 91% 04/27/2019 11:47 AM EST Inhaled Oxygen Concentration - - Weight 155.1 kg (342 lb) 04/27/2019 11:47 AM EST Height 170.2 cm (5' 7.01") 04/27/2019 11:47 AM EST Body Mass Index 53.55 04/27/2019 11:47 AM EST documented in this encounter Patient Instructions Patient InstructionsWiHuy nuñez MD - 04/27/2019 12:00 PM EST Thank you for coming in today. Please reach out on MyChart if you have any questions or concerns. Here is a summary of the recommendations based on today' s visit: Ureteral stricture, left I addressed Hydronephrosis with Christel today. This is a new problem for us and has significantly worsened. I discussed imaging findings, additional diagnostic testing, surgical treatment options and conservative treatment options with her today. I believe her left kidney to be atrophic with minimal function. I will order a MAG3 renal scan to assess differential function and see her with results. Thiswill help us better understand if we should repair the stricture, or perform nephrectomy, or simply manage her with chronic indwelling stents. I reviewed metallic ureteral stent placement with her today. Her desire is to swap out her current plastic stent for a metallic stent and if possible remove her existing left stones at that time in an effort to reduce infections. This seems like a reasonable first step. Return Left ureteroscopy, laser lithotripsy and metallic ureteral stent, and MAG3 renogram.. Orders Placed This Encounter NM Kidney Function with Lasix Basic Metabolic Panel CBC Urinalysis with reflex urine culture documented in this encounter Progress Notes Huy Johnson MD - 04/27/2019 12:00 PM EST Urology New Patient Note Subjective History of Present Illness: Christel Zhao was seen in the Urology office at [facility] as a new patient at the request of Dr. Osborn for evaluation and possible treatment of left atrophic kidney with recurrent uti in the setting of nephrolithiasis and ureteral stricture disease.The patient is a 73-year-old female who has been followed by Dr. Osborn in [place] for several years. She initially presented with [...] system, making ureteroscopy very difficult and fragment retrieval nearly impossible in the setting of cloudy urine with respiratory movement of the kidney. She tends to become septic every time stent removal is attempted. She presents today to discuss options of either repair of her ureteral stricture or definitive stonemanagement. She has never had testing of differential renal function. She presently has an indwelling left ureteral stent, which she states is made of silicone. She reports recurrent Proteus urinarytract infections with symptoms primarily of back pain, dysuria, urgency, and frequency. She denies febrile urinary tract infections. Of note, she is allergic to sulfa and quinolones, and is on chronic anticoagulation for a history of pulmonary embolus. Today she reports that she is asymptomatic from her chronic indwelling ureteral stent. She is interested in conservative management strategies as she and her feel she is at a very high risk forany invasive procedures. I personally reviewed referral records and the history above was supplemented with data from these outside records. The patient's past medical, surgical, medication, allergy, family, and social histories were reviewed and noncontributory to this illness/condition except as noted below: PMH: The patient has a past medical history of Cataract, Coronary artery disease, H/O blood clots, Hearing loss, Heart murmur, Hypertension, Kidney stones, Legally blind, Migraine, Recurrent UTI, Renal disorder, Seizures, and Ureteral stricture, left (04/27/2019). PSH: The patient has a past surgical history that includes Tonsillectomy; Joint replacement; Orif Humerus (Right, 12/19/2013); kidney stone blast; Cataract extraction, bilateral; Ureteral stent placement; Cardiac catheterization (05/29/2012); Hysterectomy (10/11/2014); and Total shoulder replacement (Right, 08/2012). Meds: The patient has a current medication list which includes the following prescription(s): apixaban, aspirin, atenolol, atorvastatin, brimonidine, bumetanide, fluoxetine, levothyroxine, multivitaminwith minerals, omeprazole, potassium citrate, and sodium chloride. Allergies: The patient is allergic to levaquin [levofloxacin in d5w]; nitrofuran derivatives; latex;levothyroxine; and sulfa antibiotics. FH: The patient's family history includes Diabetes in her daughter and father; Leukemia in her father. SH: The patient reports that she has never smoked. She has never used smokeless tobacco. She reports that she does not drink alcohol or use drugs. Review of Systems Constitutional: Positive for malaise/fatigue. Negative for chills and fever. HENT: Positive for hearing loss. Negative for nosebleeds. Eyes: Negative for blurred vision and discharge. Respiratory: Negative for cough and wheezing. Cardiovascular: Negative for chest pain, palpitations and leg swelling. Gastrointestinal: Negative for abdominal pain, blood in stool, constipation, diarrhea, nausea and vomiting. Genitourinary: Negative for dysuria, flank pain, frequency, hematuria and urgency. Musculoskeletal: Positive for back pain, joint pain and neck pain. Negative for falls and myalgias. Skin: Negative for rash. Neurological: Positive for tremors, seizures and headaches. Negative for dizziness, sensory change and focal weakness. Endo/Heme/Allergies: Bruises/bleeds easily. Psychiatric/Behavioral: Negative for depression and substance abuse. The patient is not nervous/anxious. Objective Physical Exam BP 146/82 | Pulse 89 | Temp 36.7 C (Oral) | Resp 16 | Ht 1.702 m | Wt ( !) 155.1 kg (342 lb) | SpO2 91% | BMI 53.55 kg/m Physical Exam Constitutional: General: She is not in acute distress. Appearance: She is well-developed. She is obese. She is ill-appearing. HENT: Head: Normocephalic and atraumatic. Eyes: General: Right eye: No discharge. Left eye: No discharge. Conjunctiva/sclera: Conjunctivae normal. Neck: Musculoskeletal: Normal range of motion. Trachea: No tracheal deviation. Cardiovascular: Rate and Rhythm: Normal rate and regular rhythm. Pulmonary: Effort: Pulmonary effort is normal. No respiratory distress. Abdominal: General: There is no distension. Palpations: Abdomen is soft. Tenderness: There is no abdominal tenderness. There is no right CVA tenderness or left CVA tenderness. Musculoskeletal: General: No deformity. Skin: General: Skin is warm and dry. Neurological: Mental Status: She is alert and oriented to person, place, and time. Psychiatric: Behavior: Behavior normal. Thought Content: Thought content normal. The following objective data was personally reviewed and interpreted by me. Lab Review (01/26/19): / 4.9 1.82 \\ GFR: 27 Ca: PTH: Vit D: Uric Acid: 14.5 \\ \\ Imaging: The patient had a CTAP w/o contrast performed prior to today's visit on 01/26/19. These images were reviewed and interpreted by me personally today. Findings include small stones in the left lower pole of a markedly atrophic kidney, stent in place. Right kidney with good parenchyma and obvious lower pole nephrocalcinosis. Retrograde pyelogram at last stent change on 01/26/19 demonstrates severe hydronephrosis and multiple areas of stricture. Assessment It was a pleasure seeing Christel Zhao in clinic today. The primary encounter diagnosis was Ureteral stricture, left. A diagnosis of Kidney stones was also pertinent to this visit. Ureteral stricture, left I addressed Hydronephrosis with Christel today. This is a new problem for us and has significantly worsened. I discussed imaging findings, additional diagnostic testing, surgical treatment options and conservative treatment options with her today. I believe her left kidney to be atrophic with minimal function. I will order a MAG3 renal scan to assess differential function and see her with results. Thiswill help us better understand if we should repair the stricture, or perform nephrectomy, or simply manage her with chronic indwelling stents. I reviewed metallic ureteral stent placement with her today. Her desire is to swap out her current plastic stent for a metallic stent and if possible remove her existing left stones at that time in an effort to reduce infections. This seems like a reasonable first step. Plan Return Left ureteroscopy, laser lithotripsy and metallic ureteral stent, and MAG3 renogram.. Orders Placed This Encounter NM Kidney Function with Lasix Basic Metabolic Panel CBC Urinalysis with reflex urine culture Total time spent with patient was over 45 minutes, more than half of which was on counseling and coordination of care. Thank you for allowing us to participate in the care of this patient. Please do not hesitate to contact us should you have any questions or concerns. Huy Johnson MD Contract Loader of Urology Chief of Endourology Service [facility] Urology 9 :34 AM ESTdocumented in this encounter Plan of Treatment Name Type Priority Associated Diagnoses Order Schedule NM Kidney Function with Imaging Routine Kidney stones Expected: 04/27/2019, Lasix Expires: 07/26/2020 Health Maintenance Due Date Last Done Comments Hepatitis C Screening (B. 1945 [id number]) MMR Vaccines (1 of 1 - Standard 11/03/1946 series) Varicella Vaccines (1 of 2 - 11/03/1946 2-dose childhood series) DTaP,Tdap,and Td Vaccines (1 - 1953 Tdap) Breast Cancer Screening 2 years 1996 Colon Cancer Screening 10 yrs 1996 Zoster Vaccines (1 of 2) 1996 Osteoporosis Screening 2 yr 11/03/2011 Pneumococcal Vaccine: 65+ Years (1 11/03/2011 of 2 - PCV13) Influenza Vaccine 01/05/2019 HIB Vaccines Aged Out [...] Years) and At-Risk patient's age to complete this Patients (6 to 64 Years) topic documented as of this encounter Implants Implanted Type Area Shuttle Hand Device Shelf Model / Identifier Expiration Serial / Date Lot Screw Str Lk S/T 3.5 24mm - [id number] Right: Booster Pack [facility] [id number] / Implanted: Qty: 1 on 12/19/2013 by Krishna Rodriguez MD at OR 5E Humerus / Screw Cortx S/T 3.5mm 22mm - [id number] Right: Booster Pack [facility] 204.822 / Implanted: Qty: 3 on 12/19/2013 by Krishna Rodriguez MD at OR 5E Humerus / Plate 3.5 Dist.Humerus 6hl Rt - [id number] Right: Booster Pack [facility] [id number] / Implanted: Qty: 1 on 12/19/2013 by Krishna Rodriguez MD at OR 5E Humerus / Screw Cortx S/T 3.5mm 24mm - [id number] Right: Booster Pack [facility] 204.824 / Implanted: Qty: 1 on 12/19/2013 by Krishna Rodriguez MD at OR 5E Humerus / Screw Str Lk S/T 3.5 26mm - [id number] Right: Booster Pack [facility] 212.109 / Implanted: Qty: 1 on 12/19/2013 by Krishna Rodriguez MD at OR 5E Humerus / Screw Str Lk S/T 3.5 28mm - [id number] Right: Booster Pack [facility] 212.110 / Implanted: Qty: 1 on 12/19/2013 by Krishna Rodriguez MD at OR 5E Humerus / documented as of this encounter Procedures Procedure Name Priority Date/Time Associated Comments Diagnosis URINALYSIS WITH Routine 04/27/2019 12:50 PM Kidney stones Results for this REFLEX URINE CULTURE EST procedure are in the results section. documented in this encounter Results CBC (04/27/2019 1:25 PM EST) White Blood Cell 8.3 4 - 10 10*3/uL [facility] at Red Blood Cell 4.74 4.1 - 5.3 [facility] 10*6/uL [facility] at Hemoglobin 14.3 11.5 - 15.5 [facility] g/dL [facility] at Hematocrit 43.4 36 - 45 % [facility] at Mean Cell Volume 91.5 80 - 96 fL [facility] at Mean Cell Hemoglobin 30.1 27 - 33 pg [facility] at Mean Cell Hgb Conc 32.9 32.0 - 36.0 [facility] g/dL [facility] at Red Cell Dist Width 15.8 (H) 11.5 - 14.5 % [facility] at Platelet Count 235 150 - 400 [facility] 10*3/uL [facility] at Specimen EDTA Whole Blood Performing Organization Address City/State/Zipcode Phone Number [facility] [place] [address] [phone] [facility] at [address] [address] Basic Metabolic Panel (04/27/2019 1:25 PM EST) Bicarbonate 25 22 - 29 mmol/L [facility] at CG Chloride 103 98 - 107 mmol/L [facility] at Creatinine 1.35 (H) 0.50 - 0.90 [facility] mg/dL [facility] at Glucose 147 (H) 70 - 140 mg/dL [facility] at Potassium 4.8 3.4 - 5.1 [facility] mmol/L [facility] at Sodium 141 136 - 145 [facility] mmol/L [facility] at Blood Urea Nitrogen 37 (H) 8 - 23 mg/dL [facility] at Anion Gap 13 8 - 15 mmol/L [facility] at Osmolality, Lio 303 (H) 275 - 300 [facility] mosm/kg [facility] at BUN/Cre Ratio 27 [facility] at Calcium 9.9 8.8 - 10.2 [facility] mg/dL [facility] at GFR Non 38 (L) >60 [facility] Swazi 2009 CDK-EPI mL/min/1.73m2 [facility] CG GFR 44 (L) >60 [facility] 2009 CKD-EPI mL/min/1.73m2 [facility] at Specimen Plasma Performing Organization Address City/[facility]/Zipcode Phone Number [facility] PATHOLOGY AT [address] [address] [phone] [facility] at [address] [address] Urinalysis with reflex urine culture (04/27/2019 12:50 PM EST) Color Yellow [facility] at Clarity Cloudy [facility] at Specific [place] 1.016 1.003 - 1.030 [facility] at PH Urine 7.0 5.0 - 8.0 [facility] at Total Protein UA 30 (A) Negative mg/dL [facility] at Glucose UA 50 (A) Negative mg/dL [facility] at Ketone Urine Negative Negative mg/dL [facility] at Bilirubin Negative Negative [facility] at Hemoglobin, Urine 1+ (A) Negative [facility] at Leukocyte Esterase 3+ (A) Negative Venkata/uL [facility] at Nitrite Negative Negative [facility] at WBC 50 (H) 0 - 5 /HPF [facility] at RBC 5 (H) 0 - 3 /HPF [facility] at Bacteria, UA 3+ (A) None /HPF [facility] at Squam Epithel, UA 3 (A) None /HPF [facility] at Specimen Urine Performing Organization Address City/State/Zipcode Phone Number [facility] PATHOLOGY AT [address] [address] [facility] at [address] [address] documented in this encounter Visit Diagnoses Diagnosis Ureteral stricture, left - Primary Stricture or kinking of ureter Kidney stones Calculus of kidney documented in this encounter
--- OUTSIDE RECORDS SUMMARY | 2019-05-25 14:58 | XMS REPORT | Continuity of Care Document ---
:1945 External Reference #:[id number] Author Name Ronaldo Hdz M.D. (transmitted by agent of provider Celeste Sykes ) Address [address] [place] [phone] Care Team Providers Name Role Phone Popeye Rojo MD - Family Medicine Care Team Information Nurse Staff [facility] [place] Care Team Information Nurse Staff [facility] - [facility] Therapy Problems Active Problems Provider Date Electrocardiogram abnormal Aby Balbuena M.D. Onset: 05/18/2012 Hyperlipidemia Aby Balbuena M.D. Onset: 05/18/2012 Chest pain Aby Balbuena M.D. Onset: 05/18/2012 Essential hypertension Aby Balbuena M.D. Onset: 05/18/2012 Dyspnea Aby Balbuena M.D. Onset: 05/18/2012 Edema Aby Balbuena M.D. Onset: 05/18/2012 Morbid obesity Aby Balbuena M.D. Onset: 05/18/2012 Coronary arteriosclerosis Aby Balbuena M.D. Onset: 06/18/2012 Benign essential hypertension Aby Balbuena M.D. Onset: 04/12/2013 Mitral valve disorder Aby Balbuena M.D. Onset: 04/12/2013 Malignant essential hypertension Aby Balbuena M.D. Onset: 2013 Migraine without aura Isabel Vang M.D. Onset: 04/04/2015 Seizure Isabel Vang M.D. Onset: 04/04/2015 Social History Type Date Description Comments Sex Unknown Tobacco Use Start: Unknown Never Smoked Cigarettes Tobacco Use Start: Unknown Never Smoked Cigars Tobacco Use Start: Unknown Never Smoked A Pipe Smoking Status Reviewed: 05/17/19 Never Smoked A Pipe Smokeless Tobacco Never Used Smokeless Tobacco ETOH Use Rarely consumes alcohol Tobacco Use Start: Unknown Patient has never smoked Recreational Drug Use Denies Drug Use Exercise Type/Frequency Does not exercise Allergies, Adverse Reactions, Alerts Active Allergies Reaction Severity Comments Date Latex rash 05/18/2012 Sulfa Antibiotics hives 05/18/2012 Levaquin seizure, "almost killed me" Severe 05/18/2012 Levothyroxine 04/04/2015 Nitrofurantoin Urticaria, itching, difficulty 06/16/2017 breathing Medications Active Medications SIG Qnty Indications Ordering Provider Date Cefdinir 1 cap by mouth 30caps Ronaldo Campoverde 05/06/2019 300mg Capsules twice daily Bindu Hdz Fluoxetine HCL 1 po qd 30caps Joe Conte, 02/18/2019 20mg M.DGlenroy Capsules Atenolol 1 po qd 30tabs Unknown 50mg Tablets Lipitor one tab po qhs 90tabs Unknown 20mg Tablets Alphagan P 2gtts both eyes Unknown 0.1% daily Solution One Daily For Women daily Unknown Tablets Aspir-Low 1 po qd 30tabs Unknown 81mg Tablets DR Synthroid 1 by mouth every 30tabs Unknown 25mcg Tablets day Urocit-K 15 1 tab by mouth Unknown 15Meq (1620 twice daily mg) Tablets ER Bumetanide once daily as Popeye Rojo MD 1mg Tablets needed Eliquis 1 by mouth twice Unknown 5mg Tablets a day Karolina 128 1 drop to both Unknown 2% Solution eyes daily as needed Omeprazole 1 by mouth every Unknown 20mg day Capsules DR History Medications Fluoxetine HCL (PMDD) 1 po qd 30caps Joe Conte, 02/18/2019 - 02/18 20mg Bindu Capsules Medications Administered in Office Medication SIG Qnty Indications Ordering Provider Date Depomedrol 80MG Pradeep German M.D. 06/23/2012 Injection Immunizations Description No Information Available Vital Signs Date Vital Result Comment 05/17/2019 3:33pm Height 62 inches 5'2" Weight 346.00 lb Heart Rate 72 /min BP Systolic Sitting 112 mmHg BP Diastolic Sitting 72 mmHg Respiratory Rate 14 /min Body Temperature 98.2 F BMI (Body Mass Index) 63.3 kg/m2 05/05/2019 3:15pm Height 62 inches 5'2" Weight 342.00 lb with shoes Heart Rate 72 /min left radial BP Systolic Sitting 144 mmHg Lue, forearm, reg cuff BP Diastolic Sitting 86 mmHg Lue, forearm, reg cuff O2 % BldC Oximetry 98 % room air BMI (Body Mass Index) 62.5 kg/m2 Ejection Fraction 55%-60% 03/10/18 echocardiogram Results Test Acquired Date Facility Test Result H/L Range Note Laboratory test 01/26/2019 [facility] Lactic Acid 0.9 mmol/L Normal 0.5-2.0 1 finding [address] [place] [address] [phone] [facility] Severe Sepsis and Septic Shock Management Bundle Measure requires all lactic acids initially measuring >2.0 mmol/L be repeated. 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 renal and ureteral Hospitalists calculous obstruction N17.9 Acute kidney failure, unspecified N39.0 Urinary tract infection, site not specified E87.2 Acidosis Assessments Date Code Description Provider 05/17/2019 N39.0 Urinary tract infection, site not Ronaldo Hdz M.D. specified 05/17/2019 Z96.0 Presence of urogenital implants Ronaldo Hdz M.D. 05/07/2019 I34.0 Nonrheumatic mitral (valve) Aby Balbeuna M.D. insufficiency 05/07/2019 I34.0 Nonrheumatic mitral (valve) Traveling ECHO 2 insufficiency 05/07/2019 I12.9 Hypertensive chronic kidney disease Aby Balbuena M.D. with stage 1 through stage 4 chronic kidney disease, or unspecified chronic kidney disease 05/07/2019 I12.9 Hypertensive chronic kidney disease Traveling ECHO 2 with stage 1 through sta 05/07/2019 I25.10 Atherosclerotic heart disease of Aby Balbuena M.D. [place] coronary artery without angina pectoris 05/07/2019 I25.10 Atherosclerotic heart disease of Traveling ECHO 2 [place] coronary artery with 05/07/2019 Z01.810 Encounter for preprocedural Aby Balbuena M.D. cardiovascular examination 05/07/2019 Z01.810 Encounter for preprocedural Traveling ECHO 2 cardiovascular examination 05/05/2019 I12.9 Hypertensive chronic kidney disease Aby Balbuena M.D. with stage 1 through sta 05/05/2019 I34.0 Nonrheumatic mitral (valve) Aby Balbuena M.D. insufficiency 05/05/2019 I25.10 Atherosclerotic heart disease of Aby Balbuena M.D. [place] coronary artery with 05/05/2019 E66.9 Obesity, unspecified Aby Balbuena M.D. 05/05/2019 Z01.810 Encounter for preprocedural Aby Balbuena M.D. cardiovascular examination 02/18/2019 G25.1 Drug-induced tremor Joe Conte M.D. 02/18/2019 R25.1 Tremor, unspecified Joe Conte M.D. 01/26/2019 N13.2 Hydronephrosis with renal and ureteral Trent Ferrari M.D. calculous obstruction 01/26/2019 N17.9 Acute kidney failure, unspecified Trent Ferrari M.D. 01/26/2019 N39.0 Urinary tract infection, site not Trent Ferrari M.D. specified 01/26/2019 E87.2 Acidosis Trent Ferrari M.D. Plan of Treatment Future Appointment(s):07/08/2019 11:30 am - Joe Conte M.D. at [facility]05/17/2019 - Ronaldo Hdz M.D.N39.0 Urinary tract infection, site not [id number] Presence of urogenital implants Functional Status Description No Information Available Mental Status Description No Information Available Referrals Description No Information Available
--- OUTSIDE RECORDS SUMMARY | 2019-05-25 14:58 | XMS REPORT | Continuity of Care Document ---
:1945 External Reference #:[id number] Author Name Aby Balbuena M.D. 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 Capsules Atenolol 1 po qd 30tabs Unknown [...] 30caps Joe Conte, 02/18/2019 - 02/18 20mg M.D. Capsules Medications Administered in Office Medication SIG Qnty Indications Ordering Provider Date Depomedrol 80MG Pradeep German M.D. 06/23/2012 Injection Immunizations Description No Information Available Vital Signs Date Vital Result Comment 05/05/2019 3:15pm Height 62 inches 5'2" Weight 342.00 lb with shoes Heart Rate 72 /min left radial BP Systolic Sitting 144 mmHg Lue, forearm, reg cuff BP Diastolic Sitting 86 mmHg Lue, forearm, reg cuff O2 % BldC Oximetry 98 % room air BMI (Body Mass Index) 62.5 kg/m2 Ejection Fraction 55%-60% 03/10/18 echocardiogram 02/18/2019 3:48pm Height 62 inches 5'2" Weight 340.38 lb Heart Rate 76 /min BP Systolic Sitting 128 mmHg BP Diastolic Sitting 80 mmHg Respiratory Rate 24 /min O2 % BldC Oximetry 96 % BMI (Body Mass Index) 62.2 kg/m2 Results Test Acquired Date Facility Test Result H/L Range Note Laboratory test 01/26/2019 [facility] Lactic Acid 0.9 mmol/L Normal 0.5-2.0 1 finding [address] [place] [address] [phone] [facility] Severe Sepsis and Septic Shock Management Bundle Measure requires all lactic acids initially measuring >2.0 mmol/L be repeated. 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 renal and ureteral Hospitalists calculous obstruction N17.9 Acute kidney failure, unspecified N39.0 Urinary tract infection, site not specified E87.2 Acidosis Assessments Date Code Description Provider 05/05/2019 I12.9 Hypertensive chronic kidney disease Aby Balbuena M.D. with stage 1 through sta 05/05/2019 I34.0 Nonrheumatic mitral (valve) Stephanie Mendoza.D. insufficiency 05/05/2019 I25.10 Atherosclerotic heart disease of Aby Balbuena M.D. [place] coronary artery with 05/05/2019 E66.9 Obesity, unspecified [...] Trent Ferrari M.D. Plan of Treatment Future Appointment(s):05/07/2019 9:00 am - Traveling ECHO 2 at [facility]07/08/2019 11:30 am - Joe Conte M.D. at [facility]05/05/2019 - Aby Balbuena M.D.I12.9 Hypertensive chronic kidney disease with stage 1 through staI34.0 Nonrheumatic mitral (valve) insufficiencyNew Orders:Echocardiogram, Scheduled: I25.10 Atherosclerotic heart disease of [place] coronary artery withFollow up: 10 months ovE66.9 Obesity, zhovtbrupzxS75.810 Encounter for preprocedural cardiovascular examination Functional Status Description No Information Available Mental Status Description No Information Available Referrals Description No Information Available
--- OUTSIDE RECORDS SUMMARY | 2019-05-25 14:58 | XMS REPORT | Continuity of Care Document ---
:1945 External Reference #:[id number] Author Name Abel Hernadez M.D. Address [address] [place] [address] Care Team Providers Name Role Phone Popeye Rojo M.D. - Family Medicine Care Team Information Salvage Inspector Aby Balbuena M.D. - Care Team Information Salvage Inspector [phone] Cardiovascular Disease Problems Active Problems Provider Date Hearing loss Onset: Obstetric blood-clot pulmonary embolism Onset: Dyspnea Onset: Gout Onset: Kidney stone Onset: Hypothyroidism Onset: Hypercholesterolemia Onset: H/O: depression Onset: Arthritis Onset: H/O: hypertension Onset: Seizure Onset: Migraine Onset: Cardiac catheterization Onset: Primary open angle glaucoma Abel Hernadez M.D. Onset: 08/30/2014 Aphakia Abel Hernadez M.D. Onset: 08/30/2014 Corneal edema Abel Hernadez M.D. Onset: 08/30/2014 Secondary pigmentary retinal degeneration Abel Hernadez M.D. Onset: 2014 Moderate Glaucoma Abel Hernadez M.D. Onset: 08/30/2014 Pseudophakia Abel Hernadez M.D. Onset: 08/30/2014 Pyelonephritis Onset: Social History Type Date Description Comments Sex Unknown ETOH Use Denies alcohol use Tobacco Use Start: Unknown Patient has never smoked Recreational Drug Use Denies Drug Use Smoking Status Reviewed: 04/29/19 Patient has never smoked Allergies, Adverse Reactions, Alerts Active Allergies Reaction Severity Comments Date Timolol 08/26/2014 Sulfa Antibiotics hives 08/26/2014 Levaquin anaphyaxis 08/26/2014 Latex Urticaria Severe 09/11/2015 Levothyroxine 03/25/2017 Medications Active Medications SIG Qnty Indications Ordering Date Provider Natali Santos instill 1 drop in 15units Abel Hernadez, 03/12/2016 0.1% both eyes two M.D. Solution times daily Bumetanide Unknown 1mg Tablets Synthroid Unknown 25mcg Tablets Aspirin Unknown 81mg Tablets Atenolol Unknown 50mg Tablets Atorvastatin Calcium Unknown 20mg Tablets Potassium Citrate ER bid Unknown 15Meq (1620 mg) Tablets ER Multi For Her 50+ Unknown Tablets Fluoxetine HCL Take 1 Capsule By Unknown 40mg Mouth Every Day Capsules For Anxiety And Depression Artificial Tears as needed Abel Hernadez, M.DGlenroy 1-0.3% Solution Amoxicillin/Clavulan Unknown ate Potassium 875-125mg Tablets Eliquis Take 1 Tablet By Unknown 5mg Tablets Mouth Two Times Daily Karolina 128 1 drop both eyes Abel Hernadez, 5% Solution twice daily M.D. Immunizations Description No Information Available Vital Signs Description No Information Available Results Description No Information Available Procedures Description No Information Available Medical Devices Description No Information Available Encounters Description No Information Available Assessments Date Code Description Provider 04/29/2019 H40.1132 Primary open-angle glaucoma, bilateral, Abel Hernadez M.D. moderate stage 04/29/2019 Z96.1 Presence of intraocular lens Abel Hernadez M.D. 04/29/2019 H27.01 Aphakia, right eye Abel Hernadez M.D. 04/29/2019 H18.20 Unspecified corneal edema Abel J. Arleo, M.D. Plan of Treatment Future Appointment(s):10/28/2019 10:30 am - Abel Hernadez M.D. at Abel Hernadez MD, 04/29/2019 - Abel Hernadez M.D.H40.1132 Primary open-angle glaucoma, bilateral, moderate stageComments:Smoking can increase the risk of developing or worsening any eye related disease, as well as affect your overall health. If you are a smoker, we strongly recommend that you quit.If you are not a smoker, we strongly recommend that you do not start. Your glaucoma is stable at this time.Your eye pressure is within an acceptable range, and your testing does not show any further deterioration at this time. Please continue your treatment.Follow up:6 Month Follow Up IOP Check At your next visit, we are not planning to dilate your eyes. However, if you have any changes in your vision or new symptoms, there are certain situations that require us to dilate your eyes. If Dr. Hernadez requests any additional testing, that may require extra time. If you have any questions before your next appointment, please call our office at .z96.1 Presence of intraocular lensComments:The artificial lens implant in your left eye appears to be stable at this time.H27.01 Aphakia, right eyeH18.20 Unspecified corneal edema Functional Status Description No Information Available Mental Status Description No Information Available Referrals Description No Information Available
--- OUTSIDE RECORDS SUMMARY | 2019-05-25 14:58 | XMS REPORT | Summary of Care ---
:1945 Author Organization [facility] Address [address] [place] [address] Care Team Providers Name Role Phone Popeye Rojo MD Primary Care Provider Reason for Referral Diagnostic Radiology (Routine) Status Reason Specialty Diagnoses / Referred By Referred To Procedures Contact Contact Authorized Radiology Diagnoses Kidney stones Huy Johnson V, Procedures NM Kidney Function with Meño OBANDO [address] [phone] Email: [email or web address] Reason for Visit Diagnostic Radiology (Routine) Status Reason Specialty Diagnoses / Referred By Referred To Procedures Contact Contact Authorized Radiology Diagnoses Kidney stones Huy Johnson V, Procedures [place] Kidney Function with Meño OBANDO [address] [phone] Email: [email or web address] Encounter Details Date Type Department Care Team Description 05/19/2019 Hospital Encounter Nuclear Medicine Huy Johnson V, Kidney stones [facility] [address] [facility] [address] [place] [address] [phone] Allergies Active Allergy Reactions Severity Noted Date Comments Latex Rash Low 12/19/2013 Levofloxacin In D5w Anaphylaxis High 12/19/2013 Levothyroxine Itching, Rash Low 04/27/2019 Nitrofuran Derivatives Shortness Of Breath, Itching High 04/27/2019 Sulfa Antibiotics Rash Low 12/19/2013 documented as of this encounter (statuses as of 05/20/2019) Medications Medication Sig Dispensed Refills Start Date [...] MEQ (1620 MG) Oral Tablet Extended Release documented as of this encounter (statuses as of 05/20/2019) Active Problems Problem Noted Date Ureteral stricture, [...] as of this encounter (statuses as of 05/20/2019) Social History Tobacco Use Types Packs/Day Years [...] Sign Reading Time Taken Comments Blood Pressure 144/87 05/19/2019 12:02 PM EST Pulse - - Temperature - - Respiratory Rate - - Oxygen Saturation - - Inhaled Oxygen Concentration - - Weight - - Height - - Body Mass Index - - documented in this encounter Plan of Treatment Date Type Specialty Care Team Description 05/27/2019 Hospital Encounter Surgery Huy Johnson MD [address] [address] Health Maintenance Due Date Last Done Comments Hepatitis C Screening (B. 1945 [id number]) DTaP,Tdap,and Td Vaccines (1 - 1952 Tdap) [...] of this encounter Implants Implanted Type Area Seed Laboratory Technician Device Shelf Model / Identifier Expiration Serial / Date Lot Screw Str Lk S/T 3.5 24mm - [id number] Right: SHERPA assistant [facility] 212.108 / Implanted: Qty: 1 on 12/19/2013 by Krishna Rodriguez MD at OR 5E Humerus / Screw Cortx S/T 3.5mm 22mm - [id number] Right: [employer] [facility] 204.822 / Implanted: Qty: 3 on 12/19/2013 by Krishna Rodriguez MD at OR 5E Humerus / Plate 3.5 Dist.Humerus 6hl Rt - [id number] Right: SHERPA assistant [facility] [id number] / Implanted: Qty: 1 on 12/19/2013 by Krishna Rodriguez MD at OR 5E Humerus / Screw Cortx S/T 3.5mm 24mm - [id number] Right: SHERPA assistant [facility] 204.824 / Implanted: Qty: 1 on 12/19/2013 by Krishna Rodriguez MD at OR 5E Humerus / Screw Str Lk S/T 3.5 26mm - [id number] Right: SHERPA assistant [facility] 212.109 / Implanted: Qty: 1 on 12/19/2013 by Krishna Rodriguez MD at OR 5E Humerus / Screw Str Lk S/T 3.5 28mm - [id number] Right: SHERPA assistant [facility] 212.110 / Implanted: Qty: 1 on 12/19/2013 by Krishna Rodriguez MD at OR 5E Humerus / documented as of this encounter Procedures Procedure Name Priority Date/Time Associated Diagnosis Comments NM KIDNEY FUNCTION Routine 05/19/2019 12:58 PM Kidney stones Results for this WITH PHARM - 27513 EST procedure are in the results section. documented in this encounter Results NM Kidney Function with Lasix (05/19/2019 12:58 PM EST) Specimen Impressions Performed At IMPRESSION: [facility] 1. No evidence of obstruction. 2. Majority of the renal function is contributed by the right kidney as described above. Narrative Performed At [facility] INDICATION: Assess kidney function, history of stones. Left-sided nephroureteral stent. TECHNIQUE: Following the intravenous injection of 13.7 mCi of Tc-99m labeled DTPA, immediate flow images were obtained over the kidneys in the posterior projection. Next, functional images were obtained in the same projection over thirty minutes. Additional functional images were obtained following the intravenous administration of 20 mg of furosemide. COMPARISON: CT abdomen pelvis dated 01/26/2019. FINDINGS: The flow and cortical phases of the study demonstrate asymmetric uptake, more prominent on the right side. The left kidney demonstrates decreased radiopharmaceutical uptake with persistent activity in t he collecting system with poor excretion. After administration of Lasix there is nearly complete excretion from the kidneys. The total GFR estimated from renal uptake measurements was 17 ml/min. This corresponds to a split differential function of 15 ml/min (89%) on the right and 2 ml/min (11%) on the left. The washed out phase T1/2 is 7.5 minutes for the left kidney and 0.8 minutes for the right kidney. A T-1/2 less than 10 minutes is considered normal. Procedure Note Interface, Received Via [facility] - 05/19/2019 5:54 PM EST INDICATION: Assess kidney function, history of stones. Left-sided nephroureteral stent. TECHNIQUE: Following the intravenous injection of 13.7 mCi of Tc-99m labeled DTPA, immediate flow images were obtained over the kidneys in the posterior projection. Next, functional images were obtained in the same projection over thirty minutes. Additional functional images were obtained following the intravenous administration of 20 mg of furosemide. COMPARISON: CT abdomen pelvis dated 01/26/2019. FINDINGS: The flow and cortical phases of the study demonstrate asymmetric uptake, more prominent on the right side. The left kidney demonstrates decreased radiopharmaceutical uptake with persistent activity in the collecting system with poor excretion. After administration of Lasix there is nearly complete excretion from the kidneys. The total GFR estimated from renal uptake measurements was 17 ml/min. This corresponds to a split differential function of 15 ml/min (89%) on the right and 2 ml/min (11%) on the left. The washed out phase T1/2 is 7.5 minutes for the left kidney and 0.8 minutes for the right kidney. A T-1/2 less than 10 minutes is considered normal. IMPRESSION: 1. No evidence of obstruction. 2. Majority of the renal function is contributed by the right kidney as described above. Performing Organization Address City/State/Zipcode Phone Number [facility] [address] [place] [address] documented in this encounter Visit Diagnoses Diagnosis Kidney stones Calculus of kidney documented in this encounter Administered Medications Medication Order MAR Action Action Date Dose Rate Site furosemide (LASIX) injection New Bag 05/19/2019 12:02 PM EST 20 mg Left Arm 20 mg 20 mg, Intravenous, Once, 05/19/19 at 1145, For 1 dose TC-99M pentetate New Bag 05/19/2019 11:45 AM 13.67 millicuries Intravenous, Once, Fri05/19/19 at EST 1145, For 1 dose, Imaging Protocol documented in this encounter
--- OUTSIDE RECORDS SUMMARY | 2019-05-25 14:58 | XMS REPORT | Summary of Care ---
:1945 Author Organization [facility] Address [address] [place] [address] Care Team Providers Name Role Phone Popeye Rojo MD Primary Care Provider Encounter Details Date Type Department Care Team Description 04/27/2019 Hospital Encounter [facility] Clinical Pathology at [address] [id number] Allergies Active Allergy Reactions Severity [...] of this encounter Last Filed Vital Signs Not on filedocumented in this encounter Plan of Treatment Name Type Priority Associated Diagnoses Date/Time Urine Culture ; Microbiology Routine 04/27/2019 12:50 PM Urine EST Name Type Priority Associated Diagnoses Order Schedule Urine Culture Microbiology Routine Once for 1 Occurrences starting 04/27/2019 until 04/27/2019 Health Maintenance Due Date Last Done Comments Hepatitis C Screening (B. 1945 [id number]) MMR Vaccines (1 of 1 - Standard [...] of this encounter Implants Implanted Type Area Regional Property Manager Device Shelf Model / Identifier Expiration Serial / Date Lot Screw Str Lk S/T 3.5 24mm - [id number] Right: [employer]) [facility] [id number] / Implanted: Qty: 1 on 12/19/2013 by Krishna Rodriguez MD at OR 5E Humerus / Screw Cortx S/T 3.5mm 22mm - [id number] Right: [employer] ([employer]) [facility] 204.822 / Implanted: Qty: 3 on 12/19/2013 by Krishna Rodriguez MD at OR 5E Humerus / Plate 3.5 Dist.Humerus 6hl Rt - [id number] Right: [employer] ([employer]) [facility] [id number] / Implanted: Qty: 1 on 12/19/2013 by Krishna Rodriguez MD at OR 5E Humerus / Screw Cortx S/T 3.5mm 24mm - [id number] Right: [employer] ([employer]) [facility] 204.824 / Implanted: Qty: 1 on 12/19/2013 by Krishna Rodriguez MD at OR 5E Humerus / Screw Str Lk S/T 3.5 26mm - [id number] Right: [employer] ([employer]) [facility] 212.109 / Implanted: Qty: 1 on 12/19/2013 by Krishna Rodriguez MD at OR 5E Humerus / Screw Str Lk S/T 3.5 28mm - [id number] Right: [id number] 212.110 / Implanted: Qty: 1 on 12/19/2013 by Krishna Rodriguez MD at OR 5E Humerus / documented as of this encounter Procedures Procedure Name Priority Date/Time Associated Diagnosis Comments CBC Routine 04/27/2019 1:25 PM Kidney stones Results for this EST procedure are in the results section. BASIC METABOLIC Routine 04/27/2019 1:25 PM Kidney stones Results for this PANEL EST procedure are in the results section. documented in this encounter Results Basic Metabolic Panel (04/27/2019 1:25 PM EST) Bicarbonate 25 22 - 29 mmol/L [facility] at Chloride 103 98 - 107 mmol/L [facility] at Creatinine 1.35 (H) 0.50 - 0.90 [facility] mg/dL [facility] at Glucose 147 (H) 70 - 140 mg/dL [facility] at Potassium 4.8 3.4 - 5.1 [facility] mmol/L [facility] at Sodium 141 136 - 145 [facility] mmol/L [facility] at Blood Urea Nitrogen 37 (H) 8 - 23 mg/dL [facility] at Anion Gap 13 8 - 15 mmol/L [facility] at Osmolality, Lio 303 (H) 275 - 300 [facility] mosm/kg [facility] at BUN/Cre Ratio 27 [facility] at Calcium 9.9 8.8 - 10.2 [facility] mg/dL [facility] at GFR Non 38 (L) >60 [facility] Bangladeshi 2008 CDK-EPI mL/min/1.73m2 [facility] at CG GFR 44 (L) >60 [facility] 2008 CKD-EPI mL/min/1.73m2 [facility] at Specimen Plasma Performing Organization Address City/State/Zipcode Phone Number [facility] PATH[facility] AT [address] [address] [facility] at [address] [place] [address] CBC (04/27/2019 1:25 PM EST) White Blood Cell 8.3 4 - 10 10*3/uL [facility] at Red Blood Cell 4.74 4.1 - 5.3 [facility] 10*6/uL [facility] at Hemoglobin 14.3 11.5 - 15.5 [facility] g/dL [facility] at Hematocrit 43.4 36 - 45 % [facility] at Mean Cell Volume 91.5 80 - 96 fL [facility] at Mean Cell Hemoglobin 30.1 27 - 33 pg [facility] at Mean Cell Hgb Conc 32.9 32.0 - 36.0 [facility] g/dL [facility] Univ at Red Cell Dist Width 15.8 (H) 11.5 - 14.5 % [facility] at Platelet Count 235 150 - 400 [facility] 10*3/uL Medical [facility] at Specimen EDTA Whole Blood Performing Organization Address City/State/Zipcode Phone Number [facility] PATHOLOGY AT [address] [address] [phone] [facility] at [address] [place] [address] documented in this encounter Visit Diagnoses Diagnosis Kidney stones Calculus of kidney documented in this encounter
--- NOTE | 2019-05-25 15:22 | ECHO ---
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 History: Deep vein thrombosis. Pulmonary Embolism. Risk factors: Hypertension. Diabetes mellitus. Morbidly obese. Dyslipidemia. Labs, prior tests, procedures, and surgery: Catheterization. There was a stenosis which was treated with a stent. Conclusions Summary: - Left ventricle: Systolic function is normal. The estimated ejection fraction is 55-60%. Wall motion is normal; there are no regional wall motion abnormalities. - Left atrium: The atrium is mildly dilated. - Mitral valve: There is mild regurgitation. - Aortic valve: There is no evidence of stenosis. - Tricuspid valve: There is trace regurgitation. - Pericardium, extracardiac: There is no significant pericardial effusion. - Pulmonary arteries: Systolic pressure can not be accurately estimated. - Compared to study of 05/07/19, there is little change. Study data: Transthoracic echocardiogram. Procedure: Transthoracic echocardiography was performed. Image quality was fair. The study was technically limited due to restricted patient mobility. Complete 2D, spectral Doppler, and color flow Doppler. Location: Emergency department. Patient status: Inpatient. Patient room number: ED-05. Rhythm: Normal sinus rhythm. Findings Left ventricle: The cavity size is normal. Wall thickness is mildly increased. Systolic function is normal. The estimated ejection fraction is 55-60%. Wall motion is normal; there are no regional wall motion abnormalities. Doppler parameters are consistent with abnormal left ventricular relaxation (grade 1 diastolic dysfunction). Right ventricle: The cavity size is mildly dilated. Wall thickness is mildly increased. Systolic function is normal. Left atrium: The atrium is mildly dilated. Right atrium: The atrium is normal in size. Mitral valve: The Mitral valve annulus appears mildly calcified. The findings are consistent with mild stenosis. There is mild regurgitation. Aortic valve: The valve is trileaflet. The leaflets are mildly thickened. There is no evidence of stenosis. There is no significant regurgitation. Tricuspid valve: The leaflets are normal thickness. There is no evidence of stenosis. There is trace regurgitation. Pulmonic valve: The leaflets are normal thickness. There is no evidence of stenosis. There is trace regurgitation. Aorta: Aortic root: The aortic root is appears normal. Ascending aorta: The ascending aorta is appears normal. Aortic arch: The aortic arch is appears normal. Pericardium: A prominent pericardial fat pad is present. There is no significant pericardial effusion. Pulmonary arteries: The main pulmonary artery is normal-sized. Systolic pressure can not be accurately estimated. Systemic veins: Inferior vena cava: The vessel is dilated. There is (>= 50%) respiratory change in the IVC dimension. Measurements Left ventricle Value Ref Right atrium continued Value Ref SONNY, LAX 5.0 cm 3.8 - 5.2 ML dim, ES, A4C 4.3 cm 2.6 - 4.4 ESD, LAX 3.2 cm 2.2 - 3.5 Estimated RAP 8 mm Hg --------- FS, LAX 36 % 27 - 45 PW, ED, LAX (H) 1.2 cm 0.6 - 0.9 Aortic valve Value Ref FS 36 % 27 - 45 Agnes diam, ED 2.2 cm --------- PW, ED (H) 1.2 cm 0.6 - 0.9 Peak v, S 1.61 m/sec --------- E', lat agnes, TDI (L) 7.6 cm/sec >=10.0 VTI, S 30.7 cm -- ------- E/e', lat agnes, 12 Mean grad, S 4.0 mm Hg ----- ---- TDI Peak grad, S 10.0 mm Hg --------- E', med agnes, TDI (L) 4.8 cm/sec >=7.0 LVOT/AV, VTI ratio 0.78 -- ------- E/e', med agnes, 19 WALT, VTI 2.45 cm^2 ----- ---- TDI WALT, Vmax 2.13 cm^2 --------- E', avg, TDI 6.2 cm/sec E/e', avg, TDI (H) 15 <=14 Mitral valve Value Re f Peak E 0.9 m/sec --------- LVOT Value Ref Peak A 1.07 m/sec --------- Diam, S 2.00 cm Decel time 197 ms --------- Area 3.1 cm^2 Peak grad, D 3.3 mm Hg --------- Peak ellen, S 1.09 m/sec Peak E/A ratio 0.8 --------- VTI, S 24.0 cm Mean grad, S 2 mm Hg Pulmonic valve Value Ref SV 74 ml Peak v, S 0.88 m/sec --------- SV/bsa 29 ml/m^2 Peak grad, S 3.0 mm Hg --------- Ventricular septum Value Ref Aortic root Value Ref IVS, ED (H) 1.2 cm 0.6 - 0.9 Root diam 3.0 cm <4.5 Right ventricle Value Ref Ascending aorta Value Ref AW thickness, ED (H) 0.7 cm 0.1 - 0.5 AAo AP diam, S 3.1 cm --------- SONNY, LAX 3.8 cm SONNY minor ax, (H) 3.9 cm 1.9 - 3.5 Aortic arch Value Ref A4C mid Arch diam 2.8 cm --------- Left atrium Value Ref Decending aorta Value Ref AP dim, ES (H) 4.30 cm 2.70 - Asim peak ellen 0.86 m/sec --------- 3.80 ML dim, A4C 5.0 cm Inferior vena cava Value Ref SI dim, A4C 5.7 cm Diam 3.1 cm --------- Vol/bsa, ES, 1-p 35 ml/m^2 11 - 40 A4C Vol/bsa, ES, A/L (H) 39 ml/m^2 16 - 34 Right atrium Value Ref SI dim, ES 5.1 cm 3.4 - 5.3 Legend: (L) and (H) nellie values outside specified reference range. Prepared and electronically signed by Taco Mcrae MD 05/25/2019 15:21
[2019-05-25 16:41] LABS: Urine Appearance Cloudy; Urine Bilirubin Negative (Negative); Urine Blood 2+ (Negative); Urine Color Yellow; Urine Glucose 1+(50 mg/dL) (Negative); Urine Ketones Negative (Negative); Urine Nitrite Negative (Negative); Urine Protein Negative (Negative); Urine Specific Gravity 1.015 (1.010-1.030); Urine Urobilinogen Negative (Negative)
[2019-05-25 16:45] LABS: Urine Bacteria Absent (Absent); Urine Red Blood Cell 2+(6-10/hpf) (Absent); Urine Squamous Epithelial Cell Present (Absent); Urine White Blood Cell 3+(>20/hpf) (Absent)
[2019-05-25 18:20] VITALS: BP 171/73
== END 2019-05-25 18:18 | disposition home or self-care (01) ==
LOC: ED 13:38
DX: R60.9 Edema, unspecified (principal); N20.0 Calculus of kidney; Z96.0 Presence of urogenital implants; E11.9 Type 2 diabetes mellitus without complications; E03.9 Hypothyroidism, unspecified; I25.10 Atherosclerotic heart disease of native coronary artery without angina pectoris; E78.00 Pure hypercholesterolemia, unspecified; I10 Essential (primary) hypertension; F84.0 Autistic disorder; F32.9 Major depressive disorder, single episode, unspecified; Z90.710 Acquired absence of both cervix and uterus; Z96.653 Presence of artificial knee joint, bilateral; Z96.611 Presence of right artificial shoulder joint; Z86.718 Personal history of other venous thrombosis and embolism; Z86.711 Personal history of pulmonary embolism; Z90.49 Acquired absence of other specified parts of digestive tract; Z79.01 Long term (current) use of anticoagulants; Z79.82 Long term (current) use of aspirin; Z79.890 Hormone replacement therapy; Z79.899 Other long term (current) drug therapy; Z88.2 Allergy status to sulfonamides; Z88.8 Allergy status to other drugs, medicaments and biological substances; Z88.1 Allergy status to other antibiotic agents; Z91.040 Latex allergy status
CPT/HCPCS: 36415; 71045; 80053; 81003; 81015; 83880; 84484; 85025; 87086; 93005; 93306; 99283

== ENCOUNTER 2020-03-27 10:30 | Inpatient (IN) ==
[2020-03-27 11:32] LABS: ABS Eosinophils 0.1 10^3/ul (0-0.6); ABS Lymphocytes 0.9 10^3/ul (1.0-4.8); ABS Monocytes 0.8 10^3/ul (0-0.8); ABS Neutrophils 6.1 10^3/ul (1.5-7.7); Eosinophil % 0.7 %; Hematocrit 39 % (35-47); Hemoglobin 12.8 g/dL (12.0-16.0); Lymphocyte % 11.5 %; Mean Corpuscular HGB Conc 33 g/dL (31-36); Mean Corpuscular Hemoglobin 30 pg (27-31); Mean Corpuscular Volume 90 fL (80-97); Mean Platelet Volume 8.6 fL (7.4-10.4); Platelet Count 233 10^3/uL (150-450); Red Cell Distribution Width 16 % (10-15); White Blood Count 7.9 10^3/uL (3.5-10.8)
[2020-03-27 11:48] LABS: Albumin 3.5 g/dL (3.2-5.2); Albumin/Globulin Ratio 1.1 (1-3); BUN/Creatinine Ratio 16.4 (8-20); C Reactive Protein 104.4 mg/L (<8.01); Calcium 9.1 mg/dL (8.6-10.3); EGFR African American 40.6 (>60); EGFR Non-African American 33.5 (>60); Globulin 3.2 g/dL (2-4); Potassium 4.1 mmol/L (3.5-5.0); Total Bilirubin 0.5 mg/dL (0.2-1.0); Total Protein 6.7 g/dL (6.4-8.9)
[2020-03-27 11:56] LABS: Urine Appearance Turbid; Urine Bilirubin Negative (Negative); Urine Blood 2+ (Negative); Urine Color Yellow; Urine Glucose Negative (Negative); Urine Ketones Negative (Negative); Urine Nitrite Negative (Negative); Urine Protein 2+(100 mg/dL) (Negative); Urine Specific Gravity 1.017 (1.010-1.030); Urine Urobilinogen Negative (Negative)
[2020-03-27 12:21] LABS: Urine Bacteria Absent (Absent); Urine Red Blood Cell 3+(>10/hpf) (Absent); Urine Squamous Epithelial Cell Present (Absent); Urine White Blood Cell 3+(>20/hpf) (Absent)
[2020-03-27] MEDS ORDERED: cefTRIAXone 1 gm/50 mL NS BAG 1 GM/50 ML BAG IV ONE ×2 (15:16→16:20)
[2020-03-27] MEDS ORDERED: Ondansetron 4 mg VIAL 2 MG/ML 2 ml VIAL IV ONE (16:21)
[2020-03-27] MEDS ORDERED: Morphine 4 MG/ML VIAL (1 ml) IV ONE (16:21)
[2020-03-27] MEDS ORDERED: Al Hydrox/Mg Hydrox/Simet LIQ 30 ML UDC PO PRN (17:16)
[2020-03-27] MEDS ORDERED: Ondansetron 4 mg VIAL 2 MG/ML 2 ml VIAL IV PRN (17:16)
[2020-03-27] MEDS ORDERED: Dextrose 50% Syringe 50 ml 25 GM/50 ML SYRINGE IV PUSH PRN (17:24)
[2020-03-27] MEDS ORDERED: SODIUM CHLORIDE 2% BOTH EYES PRN (17:25)
[2020-03-27] MEDS: NS 0.9% 1000 ml BAG 1,000 ML IV SCH (21:14)
[2020-03-27] MEDS: Morphine 2 MG/ML SYRINGE IV PRN (21:30)
[2020-03-27] MEDS: Potassium Citrate TAB (NF) 15 MEQ TABLET.ER PO SCH (22:14)
[2020-03-28] MEDS: Morphine 2 MG/ML SYRINGE IV PRN ×3 (02:57→12:55)
[2020-03-28 05:02] LABS: BUN/Creatinine Ratio 15.8 (8-20); Calcium 8.7 mg/dL (8.6-10.3); EGFR African American 36.9 (>60); EGFR Non-African American 30.5 (>60); Potassium 4.1 mmol/L (3.5-5.0)
[2020-03-28] MEDS: NS 0.9% 1000 ml BAG 1,000 ML IV SCH ×3 (07:33→20:50)
[2020-03-28 08:13] LABS: ABS Basophils 0.1 10^3/ul (0-0.2); ABS Eosinophils 0.1 10^3/ul (0-0.6); ABS Monocytes 1.1 10^3/ul (0-0.8); ABS Neutrophils 6.3 10^3/ul (1.5-7.7); Eosinophil % 0.7 %; Hematocrit 37 % (35-47); Hemoglobin 12.2 g/dL (12.0-16.0); Lymphocyte % 11.9 %; Mean Corpuscular HGB Conc 33 g/dL (31-36); Mean Corpuscular Hemoglobin 30 pg (27-31); Mean Corpuscular Volume 90 fL (80-97); Mean Platelet Volume 8.9 fL (7.4-10.4); Nucleated Red Blood Cells % 0.1; Platelet Count 222 10^3/uL (150-450); Red Blood Count 4.08 10^6 /uL (3.70-4.87); Red Cell Distribution Width 16 % (10-15); White Blood Count 8.6 10^3/uL (3.5-10.8)
[2020-03-28] MEDS: Aspirin EC 81 mg TAB.EC (enteric coated) PO SCH (08:39)
[2020-03-28] MEDS: PTO: Brimonidine P 0.1%(NF) 1 DROP BTL BOTH EYES SCH ×2 (08:47→20:38)
[2020-03-28] MEDS: Potassium Citrate TAB (NF) 15 MEQ TABLET.ER PO SCH ×2 (09:49→21:12)
[2020-03-28] MEDS: cefTRIAXone 1 gm/50 mL NS BAG 1 GM/50 ML BAG IVPB SCH (16:04)
[2020-03-28] MEDS: SODIUM CHLORIDE 2% BOTH EYES SCH (23:00)
[2020-03-29] MEDS ORDERED: Buffered Lidocaine 1% SYRIN 1 ml INTRADERM ONE (06:00)
[2020-03-29 06:12] LABS: Hematocrit 36 % (35-47); Hemoglobin 12.1 g/dL (12.0-16.0); Mean Corpuscular HGB Conc 33 g/dL (31-36); Mean Corpuscular Hemoglobin 30 pg (27-31); Mean Corpuscular Volume 90 fL (80-97); Mean Platelet Volume 8.3 fL (7.4-10.4); Platelet Count 242 10^3/uL (150-450); Red Blood Count 4.05 10^6 /uL (3.70-4.87); Red Cell Distribution Width 16 % (10-15); White Blood Count 7.7 10^3/uL (3.5-10.8)
[2020-03-29 06:17] LABS: INR 1.36 (0.82-1.09)
[2020-03-29] MEDS: NS 0.9% 1000 ml BAG 1,000 ML IV SCH ×2 (06:27→18:45)
[2020-03-29 06:29] LABS: BUN/Creatinine Ratio 19.1 (8-20); Calcium 8.4 mg/dL (8.6-10.3); EGFR African American 34.9 (>60); EGFR Non-African American 28.9 (>60); Potassium 4.1 mmol/L (3.5-5.0)
[2020-03-29] MEDS: Aspirin EC 81 mg TAB.EC (enteric coated) PO SCH (08:01)
[2020-03-29] MEDS: Potassium Citrate TAB (NF) 15 MEQ TABLET.ER PO SCH ×2 (08:02→21:36)
[2020-03-29] MEDS: SODIUM CHLORIDE 2% BOTH EYES SCH ×2 (08:45→21:35)
[2020-03-29] MEDS: PTO: Brimonidine P 0.1%(NF) 1 DROP BTL BOTH EYES SCH ×2 (08:45→21:35)
[2020-03-29] MEDS ORDERED: Propofol 10 MG/ML 20 ML BTL ONE (10:18)
[2020-03-29] MEDS ORDERED: fentaNYL 100 mcg/2 ml 50 MCG/ML VIAL ONE (10:18)
[2020-03-29] MEDS ORDERED: Midazolam 2 mg/2 ml VIAL 1 mg/ml 2 ml VIAL (2 mg) ONE (10:18)
[2020-03-29] MEDS ORDERED: Lidocaine 2% PF 5 ML VIAL ONE (10:20)
[2020-03-29] MEDS ORDERED: Ondansetron 4 mg VIAL 2 MG/ML 2 ml VIAL ONE (11:30)
[2020-03-29] MEDS ORDERED: Dexamethasone IV 4 MG/ML VIAL 1 ml VIAL ONE (11:30)
[2020-03-29] MEDS ORDERED: Naloxone 0.4 mg VIAL 0.4 mg/ml 1 ml VIAL IV PRN ×2 (12:02→15:15)
[2020-03-29] MEDS ORDERED: DiMENhydriNATE IV 50 mg/ml 1 ml VIAL IV PUSH PRN (12:02)
[2020-03-29] MEDS ORDERED: Levalbuterol 1.25MG/0.5ML NEB.SOL INH PRN (15:15)
[2020-03-29] MEDS: cefTRIAXone 1 gm/50 mL NS BAG 1 GM/50 ML BAG IVPB SCH (16:30)
[2020-03-30] MEDS: NS 0.9% 1000 ml BAG 1,000 ML IV SCH (02:44)
[2020-03-30 06:04] LABS: Hematocrit 36 % (35-47); Hemoglobin 11.4 g/dL (12.0-16.0); Mean Corpuscular HGB Conc 32 g/dL (31-36); Mean Corpuscular Hemoglobin 29 pg (27-31); Mean Corpuscular Volume 91 fL (80-97); Mean Platelet Volume 8.7 fL (7.4-10.4); Platelet Count 222 10^3/uL (150-450); Red Blood Count 3.92 10^6 /uL (3.70-4.87); Red Cell Distribution Width 16 % (10-15); White Blood Count 12.3 10^3/uL (3.5-10.8)
[2020-03-30 06:27] LABS: BUN/Creatinine Ratio 19.9 (8-20); Calcium 8.4 mg/dL (8.6-10.3); EGFR African American 42.5 (>60); EGFR Non-African American 35.1 (>60); Potassium 4.4 mmol/L (3.5-5.0)
[2020-03-30] MEDS: Potassium Citrate TAB (NF) 15 MEQ TABLET.ER PO SCH (09:02)
[2020-03-30] MEDS: PTO: Brimonidine P 0.1%(NF) 1 DROP BTL BOTH EYES SCH (09:07)
[2020-03-30] MEDS: SODIUM CHLORIDE 2% BOTH EYES SCH (09:08)
[2020-03-30] MEDS: Aspirin EC 81 mg TAB.EC (enteric coated) PO SCH (09:10)
[2020-03-30 11:20] VITALS: BP 129/61
== END 2020-03-30 14:02 | disposition home or self-care (01) | DRG 660 ==
LOC: SSU 10:30 → ED 10:30 → SSU 18:42
PROVIDERS: ADMIT Pediatrics; ATTEND Internal Medicine

== ENCOUNTER 2022-10-09 18:38 | Observation (INO) ==
[2022-10-09] MEDS ORDERED: NS 0.9% 1000 ml BAG 1,000 ML IV ONE (19:39)
[2022-10-09 20:39] LABS: ABS Basophils 0.1 10^3/uL (0.0-0.1); ABS Lymphocytes 0.7 10^3/uL (1.0-4.8); ABS Neutrophils 11.1 10^3/uL (1.5-7.6); Eosinophil % 0.4 %; Hematocrit 34.9 % (35-45); Hemoglobin 11.4 g/dL (11.5-14.3); Lymphocyte % 5.6 %; Mean Corpuscular Hemoglobin 28.2 pg (27-33); Mean Corpuscular Hgb Conc 32.6 g/dL (31-36); Mean Corpuscular Volume 86.6 fL (80-97); Mean Platelet Volume 8.2 fL (7.5-11.2); Platelet Count 310 10^3/uL (150-450); Red Blood Count 4.03 10^6/uL (3.63-4.92); Red Cell Distribution Width 16.4 % (12-17)
[2022-10-09 20:42] LABS: Urine Appearance Cloudy; Urine Bilirubin Negative (Negative); Urine Blood 2+ (Negative); Urine Color Yellow; Urine Glucose 1+(50 mg/dL) (Negative); Urine Ketones Trace (Negative); Urine Nitrite Negative (Negative); Urine Protein 1+(30 mg/dL) (Negative); Urine Specific Gravity 1.014 (1.002-1.030); Urine Urobilinogen Negative (Negative)
[2022-10-09 20:45] LABS: Urine Bacteria 1+ (Absent); Urine Red Blood Cell 3+(>10/hpf) (Absent); Urine Squamous Epithelial Cell Present (Absent); Urine White Blood Cell 3+(>20/hpf) (Absent)
[2022-10-09 20:56] LABS: Albumin 3.5 g/dL (3.2-5.2); Calcium 9.4 mg/dL (8.6-10.3); Creatinine, Serum 1.7 mg/dL (0.51-0.95); Globulin 3.8 g/dL (2-4); INR 1.41 (0.88-1.18); Magnesium 1.6 mg/dL (1.9-2.7); Total Protein 7.3 g/dL (6.4-8.9); eGFR CKD-EPI 31.1 (>60)
[2022-10-09 20:57] LABS: Albumin/Globulin Ratio 0.9 (1-3); C Reactive Protein 104.76 mg/L (<8.01); Total Bilirubin 0.5 mg/dL (0.2-1.0)
[2022-10-09 21:12] LABS: Potassium 4.5 mmol/L (3.5-5.0)
[2022-10-09] MEDS ORDERED: Ondansetron 4 mg VIAL 2 MG/ML 2 ml VIAL IV ONE (21:28)
[2022-10-09 21:36] LABS: TSH Ultra Thyroid Stim Horm 0.88 mcIU/mL (0.34-5.60)
[2022-10-10] MEDS ORDERED: cefTRIAXone 1 gm/50 mL D5W 1 GM/50 ML BAG IV ONE (00:21)
[2022-10-10] MEDS ORDERED: Magnesium Sulfate IV 3 GM in NS 0.9% 100 ml BAG 100 ML IVPB ONE (01:24)
[2022-10-10] MEDS ORDERED: Dextrose 50% Syringe 50 ml 25 GM/50 ML SYRINGE IV PUSH PRN (02:23)
[2022-10-10 06:23] LABS: ABS Basophils 0.1 10^3/uL (0.0-0.1); ABS Lymphocytes 1.2 10^3/uL (1.0-4.8); ABS Monocytes 1.1 10^3/uL (0.0-0.9); ABS Neutrophils 8.8 10^3/uL (1.5-7.6); Eosinophil % 0.4 %; Hematocrit 32.8 % (35-45); Hemoglobin 10.8 g/dL (11.5-14.3); Lymphocyte % 10.8 %; Mean Corpuscular Hgb Conc 32.8 g/dL (31-36); Mean Corpuscular Volume 88.6 fL (80-97); Platelet Count 283 10^3/uL (150-450); Red Cell Distribution Width 16.3 % (12-17); White Blood Count 11.2 10^3/uL (3.8-11.8)
[2022-10-10 06:48] LABS: Calcium 8.7 mg/dL (8.6-10.3); Creatinine, Serum 1.74 mg/dL (0.51-0.95); Magnesium 2.4 mg/dL (1.9-2.7); eGFR CKD-EPI 30.2 (>60)
[2022-10-10] MEDS: Aspirin EC 81 mg TAB.EC (enteric coated) PO SCH (09:00)
[2022-10-10] MEDS: CMCS: Brimonidine P 0.1%(NF) 1 DROP BTL BOTH EYES SCH ×2 (09:03→20:46)
[2022-10-10] MEDS ORDERED: LACTATED RINGERS IV ONE (10:10)
[2022-10-10] MEDS ORDERED: Lactated Ringers 1000 ml BAG 1,000 ML IV SCH (11:00)
[2022-10-10] MEDS ORDERED: Lactated Ringers 1000 ml BAG 1,000 ML IV ONE (11:02)
[2022-10-10] MEDS: Ondansetron 4 mg VIAL 2 MG/ML 2 ml VIAL IV PRN (11:38)
[2022-10-10] MEDS: Lactated Ringers 1000 ml BAG 1,000 ML IV SCH ×2 (12:38→17:41)
[2022-10-10 15:56] LABS: Calcium 8.5 mg/dL (8.6-10.3)
[2022-10-10 16:02] LABS: Creatinine, Serum 1.93 mg/dL (0.51-0.95); eGFR CKD-EPI 26.7 (>60)
[2022-10-11] MEDS: Ondansetron 4 mg VIAL 2 MG/ML 2 ml VIAL IV PRN (01:59)
[2022-10-11] MEDS: Morphine 2 MG/ML SYRINGE IV PRN (02:03)
[2022-10-11] MEDS: cefTRIAXone 1 gm/50 mL D5W 1 GM/50 ML BAG IV SCH (04:21)
[2022-10-11 06:44] LABS: ABS Eosinophils 0.1 10^3/uL (0.0-0.5); ABS Lymphocytes 1.2 10^3/uL (1.0-4.8); ABS Monocytes 0.7 10^3/uL (0.0-0.9); ABS Neutrophils 6.1 10^3/uL (1.5-7.6); ABS Nucleated RBC 0.01 10^3/ul; Eosinophil % 1.1 %; Hematocrit 31.4 % (35-45); Hemoglobin 10.4 g/dL (11.5-14.3); Lymphocyte % 14.7 %; Mean Corpuscular Hemoglobin 29.4 pg (27-33); Mean Corpuscular Hgb Conc 33.2 g/dL (31-36); Mean Corpuscular Volume 88.6 fL (80-97); Mean Platelet Volume 8.1 fL (7.5-11.2); Nucleated Red Blood Cells % 0.1 /100 WBC (0.0-0.4); Platelet Count 255 10^3/uL (150-450); Red Blood Count 3.55 10^6/uL (3.63-4.92); Red Cell Distribution Width 16.5 % (12-17); White Blood Count 8.2 10^3/uL (3.8-11.8)
[2022-10-11 07:12] LABS: Calcium 8.7 mg/dL (8.6-10.3); Creatinine, Serum 1.83 mg/dL (0.51-0.95); Magnesium 2.2 mg/dL (1.9-2.7); Potassium 4.1 mmol/L (3.5-5.0); eGFR CKD-EPI 28.4 (>60)
[2022-10-11] MEDS: Aspirin EC 81 mg TAB.EC (enteric coated) PO SCH (09:04)
[2022-10-11] MEDS: CMCS: Brimonidine P 0.1%(NF) 1 DROP BTL BOTH EYES SCH ×2 (09:10→20:56)
[2022-10-11 10:31] LABS: Vitamin D Total 25(OH) 20.1 ng/mL (20-50)
[2022-10-12] MEDS: Ondansetron 4 mg VIAL 2 MG/ML 2 ml VIAL IV PRN (01:55)
[2022-10-12] MEDS: Morphine 2 MG/ML SYRINGE IV PRN (01:56)
[2022-10-12] MEDS: cefTRIAXone 1 gm/50 mL D5W 1 GM/50 ML BAG IV SCH (04:16)
[2022-10-12] MEDS: Aspirin EC 81 mg TAB.EC (enteric coated) PO SCH (08:22)
[2022-10-12] MEDS: CMCS: Brimonidine P 0.1%(NF) 1 DROP BTL BOTH EYES SCH (08:22)
[2022-10-12 13:17] VITALS: BP 108/63
== END 2022-10-12 15:00 | disposition home or self-care (01) ==
LOC: EDHOLD 18:38 → ED 18:38 → SUATTDRO 10-10 01:18 → MEDTELE 10-10 04:37
PROVIDERS: ADMIT Student in an Organized Health Care Education/Training Program; ATTEND Internal Medicine

== ENCOUNTER 2022-11-21 14:40 | Inpatient (IN) ==
[2022-11-21] MEDS ORDERED: Ondansetron ODT 4 mg TAB 4 MG TAB SL ONE (15:01)
[2022-11-21] MEDS ORDERED: Morphine 4 MG/ML VIAL (1 ml) IV ONE ×2 (15:02→15:47)
[2022-11-21] MEDS ORDERED: Lactated Ringers 1000 ml BAG 1,000 ML IV ONE ×2 (15:02→17:19)
[2022-11-21] MEDS ORDERED: Ondansetron 4 mg VIAL 2 MG/ML 2 ml VIAL IV ONE (15:11)
[2022-11-21 15:39] LABS: Hematocrit 40.5 % (35-45); Hemoglobin 13.4 g/dL (11.5-14.3); Mean Corpuscular Volume 90.7 fL (80-97); Mean Platelet Volume 8.2 fL (7.5-11.2); Platelet Count 224 10^3/uL (150-450); Red Blood Count 4.47 10^6/uL (3.63-4.92); Red Cell Distribution Width 17.3 % (12-17); White Blood Count 3.6 10^3/uL (3.8-11.8)
[2022-11-21 15:43] LABS: Albumin 3.9 g/dL (3.2-5.2); Albumin/Globulin Ratio 1.1 (1-3); C Reactive Protein 81.23 mg/L (<8.01); Calcium 9.8 mg/dL (8.6-10.3); Creatinine, Serum 2.33 mg/dL (0.51-0.95); Globulin 3.7 g/dL (2-4); Potassium 4.4 mmol/L (3.5-5.0); Total Bilirubin 0.7 mg/dL (0.2-1.0); Total Protein 7.6 g/dL (6.4-8.9); eGFR CKD-EPI 21.2 (>60)
[2022-11-21] MEDS ORDERED: Acetaminophen IV 1 GM/100ML 1,000 MG/100 ML BAG IV ONE (15:48)
[2022-11-21] MEDS ORDERED: cefTRIAXone 1 gm/50 mL D5W 1 GM/50 ML BAG IV ONE (15:59)
[2022-11-21 16:34] LABS: ABS Lymphocytes 0.2 10^3/uL (1.0-4.8); ABS Neutrophils 3.3 10^3/uL (1.5-7.6); ABS Nucleated RBC 0.01 10^3/ul; Eosinophil % 0.8 %; Lymphocyte % 6.3 %; Nucleated Red Blood Cells % 0.1 /100 WBC (0.0-0.4); RBC Morphology Normal (Normal)
[2022-11-21] MEDS ORDERED: Digoxin IV 0.5 MG/2 ML AMP (0.25 MG/ML) IV SLOW PU ONE (17:30)
[2022-11-21] MEDS ORDERED: Lactated Ringers SEPSIS* BAG 1,710 ML IV ONE (18:20)
[2022-11-21] MEDS ORDERED: Piperacillin/Tazobac 3.375 BAG 3.375 GM/100 ML BAG IV ONE (18:24)
[2022-11-21 18:36] LABS: High Sensitivity Troponin 1 Hr 13 pg/mL (<15)
[2022-11-21] MEDS: Norepinephrine 16MCG/ML BAGD5W 4,000 MCG/250 ML BAG IV SCH ×2 (19:35→23:31)
[2022-11-21 20:12] LABS: Urine Appearance Turbid; Urine Bilirubin Negative (Negative); Urine Blood 3+ (Negative); Urine Color Yellow; Urine Glucose Negative (Negative); Urine Ketones Negative (Negative); Urine Nitrite Positive (Negative); Urine Protein 2+(100 mg/dL) (Negative); Urine Specific Gravity 1.012 (1.002-1.030); Urine Urobilinogen Negative (Negative)
[2022-11-21 20:16] LABS: Urine Bacteria 3+ (Absent); Urine Red Blood Cell 3+(>10/hpf) (Absent); Urine Squamous Epithelial Cell Present (Absent); Urine White Blood Cell 3+(>20/hpf) (Absent)
[2022-11-21] MEDS ORDERED: Iohexol 180 (CONTRAST) 10 ML SDV IV ONE (20:16)
[2022-11-21] MEDS ORDERED: Lidocaine 2% PF 5 ML VIAL ONE (20:25)
[2022-11-21] MEDS ORDERED: fentaNYL 100 mcg/2 ml 50 MCG/ML VIAL ONE (20:25)
[2022-11-21] MEDS ORDERED: Ondansetron 4 mg VIAL 2 MG/ML 2 ml VIAL ONE (20:25)
[2022-11-21] MEDS ORDERED: Propofol 10 MG/ML 20 ML BTL ONE (20:25)
[2022-11-21] MEDS ORDERED: Ketamine HCL 50 mg/ml 10 ml VIAL (500 MG) ONE (20:25)
[2022-11-21] MEDS ORDERED: Dexamethasone IV 4 MG/ML VIAL 1 ml VIAL ONE (20:25)
[2022-11-21] MEDS ORDERED: Phenylephrine 40 mcg/mL 10mL (400mcg) SYRINGE ONE (20:25)
[2022-11-21] MEDS ORDERED: Midazolam 5 mg/5 ml VIAL 1 mg/ml 5 ml VIAL (5 mg) ONE (20:25)
[2022-11-21 20:47] LABS: PCO2 Arterial 32 mmHg (35-45); PO2 Arterial 125 mmHg (80-100)
[2022-11-21] MEDS ORDERED: Norepinephrine 16MCG/ML BAGD5W 4,000 MCG/250 ML BAG IV ONE (21:49)
[2022-11-21] MEDS ORDERED: PHENYLEPHRINE DRIP IVPREMIX 50 MG/250 ML BAG IV SCH (23:00)
[2022-11-21] MEDS: Phenylephrine DRIP 0.2 MG/ML in NS 0.9% 250 ML (PHA mix) IV SCH (23:33)
[2022-11-21] MEDS ORDERED: Magnesium Sulf 4 GM/100 ML IV 4,000 MG/100 ML BAG IVPB ONE (23:54)
[2022-11-22] MEDS: Ondansetron 4 mg VIAL 2 MG/ML 2 ml VIAL IV PRN ×3 (00:22→14:11)
[2022-11-22] MEDS ORDERED: ZOSYN 3.375 GM Q8H per EXTENDED INFUSION IV SCH (01:00)
[2022-11-22] MEDS ORDERED: Zosyn per Pharmacy NOTE FOLLOW UP SCH (01:00)
[2022-11-22] MEDS: Norepinephrine 16MCG/ML BAGD5W 4,000 MCG/250 ML BAG IV SCH ×4 (01:20→06:19)
[2022-11-22] MEDS: Nystatin TOP POWDER 15 GM BTL TOPICAL SCH ×4 (01:34→21:05)
[2022-11-22] MEDS ORDERED: Dextrose 50% Syringe 50 ml 25 GM/50 ML SYRINGE IV PUSH PRN (02:12)
[2022-11-22] MEDS: Morphine 2 MG/ML SYRINGE IV PRN ×3 (04:10→23:33)
[2022-11-22] MEDS: Phenylephrine DRIP 0.2 MG/ML in NS 0.9% 250 ML (PHA mix) IV SCH ×3 (04:28→22:39)
[2022-11-22 04:51] LABS: Hematocrit 36.3 % (35-45); Hemoglobin 11.5 g/dL (11.5-14.3); Mean Corpuscular Hemoglobin 29.1 pg (27-33); Mean Corpuscular Hgb Conc 31.8 g/dL (31-36); Mean Corpuscular Volume 91.6 fL (80-97); Mean Platelet Volume 8.5 fL (7.5-11.2); Platelet Count 256 10^3/uL (150-450); Red Blood Count 3.96 10^6/uL (3.63-4.92); Red Cell Distribution Width 17.7 % (12-17); White Blood Count 33.2 10^3/uL (3.8-11.8)
[2022-11-22 05:06] LABS: Calcium 8.3 mg/dL (8.6-10.3); Creatinine, Serum 3.22 mg/dL (0.51-0.95); Potassium 4.7 mmol/L (3.5-5.0); eGFR CKD-EPI 14.4 (>60)
[2022-11-22 05:29] LABS: ABS Basophils 0.1 10^3/uL (0.0-0.1); ABS Lymphocytes 0.3 10^3/uL (1.0-4.8); ABS Monocytes 0.6 10^3/uL (0.0-0.9); ABS Neutrophils 32.3 10^3/uL (1.5-7.6); ABS Nucleated RBC 0.02 10^3/ul; Eosinophil % 0.1 %; Lymphocyte % 0.8 %; Nucleated Red Blood Cells % 0.1 /100 WBC (0.0-0.4)
[2022-11-22] MEDS ORDERED: Lactated Ringers 1000 ml BAG 1,000 ML IV SCH (06:00)
[2022-11-22] MEDS: cefTRIAXone 2 gm/50 mL D5W 2 GM/50 ML BAG IV SCH (07:04)
[2022-11-22 07:49] LABS: Magnesium 2.4 mg/dL (1.9-2.7)
[2022-11-22] MEDS: Norepinephrine *QUAD STRENGTH* 16 mg/250 mL NS (ICU ONLY) IV SCH ×4 (08:07→21:31)
[2022-11-22] MEDS: PTO: Brimonidine P 0.1%(NF) 1 DROP BTL BOTH EYES SCH ×2 (08:11→21:06)
[2022-11-22] MEDS: Aspirin EC 81 mg TAB.EC (enteric coated) PO SCH (08:11)
[2022-11-22] MEDS: Triamcinolone 0.025% OINT 15 GM TUBE TOPICAL SCH (08:15)
[2022-11-22] MEDS ORDERED: Sodium Bicarb 8.4% Vial 50 ML 150 MEQ in D5W 1000 ml BAG 850 ML IV SCH (09:00)
[2022-11-22 09:32] LABS: Venous Bicarbonate HCO3 15.3 mmol/L (24-28)
[2022-11-22] MEDS: Insulin GLARGINE 100 un/ml 10 ml VIAL SUBCUT SCH (12:45)
[2022-11-22] MEDS ORDERED: Furosemide 40 mg/4 ml IV VIAL ONE (15:13)
[2022-11-22] MEDS ORDERED: Bumetanide IV 0.25 MG/ML 4 ml VIAL (1 mg) ONE (15:14)
[2022-11-22 15:18] LABS: Calcium 7.9 mg/dL (8.6-10.3); Creatinine, Serum 3.68 mg/dL (0.51-0.95); Potassium 5.3 mmol/L (3.5-5.0); eGFR CKD-EPI 12.2 (>60)
[2022-11-22] MEDS ORDERED: Bumetanide IV 0.25 MG/ML 4 ml VIAL (1 mg) IV SLOW PU ONE (15:30)
[2022-11-22] MEDS ORDERED: Albumin Human 25% 25 GM/100 ML BTL IV PRN (16:20)
[2022-11-22] MEDS ORDERED: NS 0.9% 1000 ml BAG 200 ML IV PRN (16:20)
[2022-11-22] MEDS ORDERED: NS 0.9% 1000 ml BAG 100 ML IV PRN (16:20)
[2022-11-22] MEDS ORDERED: HYDROmorphone 0.5 MG/0.5 ML SYRINGE IV SLOW PU ONE (17:51)
[2022-11-22] MEDS: Heparin 1,000 UNIT/ML 10 ml (10,000 UNITS) CATHLAB/DIALYSIS DIALYSIS PRN ×5 (18:45→23:28)
[2022-11-22] MEDS ORDERED: Vasopressin 100 UNITS in D5W 250 ml BAG 245 ML IV SCH (19:00)
[2022-11-22] MEDS ORDERED: D5W 250 ml BAG 250 ML ONE (19:02)
[2022-11-22 21:58] LABS: Hepatitis B Surface Antigen Nonreactive (Nonreactive)
[2022-11-22 22:03] LABS: Hepatitis A Ab IgM Negative (Negative)
[2022-11-22 22:04] LABS: Hepatitis B Core IgM Nonreactive (Nonreactive)
[2022-11-22 22:16] LABS: Hepatitis C Antibody Negative (Negative)
[2022-11-23] MEDS: Morphine 2 MG/ML SYRINGE IV PRN ×3 (03:28→14:17)
[2022-11-23 04:22] LABS: Venous Bicarbonate HCO3 22.5 mmol/L (24-28)
[2022-11-23 04:24] LABS: Hematocrit 35.2 % (35-45); Hemoglobin 11.8 g/dL (11.5-14.3); Mean Corpuscular Hemoglobin 29.8 pg (27-33); Mean Corpuscular Hgb Conc 33.5 g/dL (31-36); Mean Platelet Volume 8.7 fL (7.5-11.2); Platelet Count 195 10^3/uL (150-450); Red Blood Count 3.96 10^6/uL (3.63-4.92); Red Cell Distribution Width 17.4 % (12-17)
[2022-11-23] MEDS: Norepinephrine *QUAD STRENGTH* 16 mg/250 mL NS (ICU ONLY) IV SCH ×3 (04:36→20:38)
[2022-11-23 04:40] LABS: Calcium 7.6 mg/dL (8.6-10.3); Creatinine, Serum 2.51 mg/dL (0.51-0.95); Magnesium 1.8 mg/dL (1.9-2.7); Potassium 4.4 mmol/L (3.5-5.0); eGFR CKD-EPI 19.4 (>60)
[2022-11-23 05:49] LABS: Anisocytosis 2+; Polychromasia 1+
[2022-11-23 05:50] LABS: ABS Basophils 0.1 10^3/uL (0.0-0.1); ABS Eosinophils 1.4 10^3/uL (0.0-0.5); ABS Lymphocytes 0.5 10^3/uL (1.0-4.8); ABS Monocytes 1.7 10^3/uL (0.0-0.9); ABS Neutrophils 36.4 10^3/uL (1.5-7.6); ABS Nucleated RBC 0.03 10^3/ul; Eosinophil % 3.5 %; Lymphocyte % 1.4 %; Nucleated Red Blood Cells % 0.1 /100 WBC (0.0-0.4)
[2022-11-23] MEDS: cefTRIAXone 2 gm/50 mL D5W 2 GM/50 ML BAG IV SCH (06:12)
[2022-11-23] MEDS ORDERED: Magnesium Sulfate 2 gm BAG 2 GM/50 ML BAG IVPB ONE (07:29)
[2022-11-23] MEDS: Insulin GLARGINE 100 un/ml 10 ml VIAL SUBCUT SCH (09:49)
[2022-11-23] MEDS: Aspirin EC 81 mg TAB.EC (enteric coated) PO SCH (09:49)
[2022-11-23] MEDS: PTO: Brimonidine P 0.1%(NF) 1 DROP BTL BOTH EYES SCH ×2 (09:49→20:37)
[2022-11-23] MEDS: Nystatin TOP POWDER 15 GM BTL TOPICAL SCH ×3 (09:50→20:37)
[2022-11-23] MEDS: Triamcinolone 0.025% OINT 15 GM TUBE TOPICAL SCH (10:00)
[2022-11-23] MEDS: Heparin DRIP 25,000 UNITS BAG 25,000 UNITS/500 ML BAG IV SCH (13:57)
[2022-11-23 13:58] LABS: Hematocrit 34.6 % (35-45); Hemoglobin 11.3 g/dL (11.5-14.3); Mean Corpuscular Hemoglobin 28.9 pg (27-33); Mean Corpuscular Hgb Conc 32.5 g/dL (31-36); Mean Corpuscular Volume 88.9 fL (80-97); Mean Platelet Volume 8.6 fL (7.5-11.2); Platelet Count 184 10^3/uL (150-450); Red Cell Distribution Width 17.5 % (12-17); White Blood Count 38.7 10^3/uL (3.8-11.8)
[2022-11-23] MEDS ORDERED: Heparin 5000 UNITS/ML 1 mL VIAL IV PRN (14:00)
[2022-11-23] MEDS: Hydrocortisone INJ 100 MG/2ML 2 ML VIAL IV SCH ×2 (14:07→20:36)
[2022-11-23 14:09] LABS: ABS Basophils 0.4 10^3/uL (0.0-0.1); ABS Eosinophils 1.3 10^3/uL (0.0-0.5); ABS Lymphocytes 0.6 10^3/uL (1.0-4.8); ABS Monocytes 1.6 10^3/uL (0.0-0.9); ABS Nucleated RBC 0.02 10^3/ul; Eosinophil % 3.2 %; Lymphocyte % 1.5 %
[2022-11-23 14:15] LABS: Creatinine, Serum 2.88 mg/dL (0.51-0.95); eGFR CKD-EPI 16.4 (>60)
[2022-11-23] MEDS: Heparin 1,000 UNIT/ML 10 ml (10,000 UNITS) CATHLAB/DIALYSIS DIALYSIS PRN ×4 (20:56→23:43)
[2022-11-24] MEDS: Heparin 1,000 UNIT/ML 10 ml (10,000 UNITS) CATHLAB/DIALYSIS DIALYSIS PRN (01:01)
[2022-11-24] MEDS: Morphine 2 MG/ML SYRINGE IV PRN (01:40)
[2022-11-24] MEDS: Hydrocortisone INJ 100 MG/2ML 2 ML VIAL IV SCH ×3 (05:41→20:24)
[2022-11-24 05:44] LABS: Hematocrit 31.6 % (35-45); Hemoglobin 10.6 g/dL (11.5-14.3); Mean Corpuscular Hgb Conc 33.7 g/dL (31-36); Mean Platelet Volume 8.6 fL (7.5-11.2); Platelet Count 154 10^3/uL (150-450); Red Blood Count 3.55 10^6/uL (3.63-4.92); Red Cell Distribution Width 17.5 % (12-17); White Blood Count 32.8 10^3/uL (3.8-11.8)
[2022-11-24 06:02] LABS: Calcium 7.4 mg/dL (8.6-10.3); Creatinine, Serum 2.09 mg/dL (0.51-0.95); Magnesium 1.9 mg/dL (1.9-2.7); Potassium 3.8 mmol/L (3.5-5.0); eGFR CKD-EPI 24.1 (>60)
[2022-11-24] MEDS: Heparin DRIP 25,000 UNITS BAG 25,000 UNITS/500 ML BAG IV SCH ×2 (06:08→18:23)
[2022-11-24 06:18] LABS: ABS Basophils 0.1 10^3/uL (0.0-0.1); ABS Eosinophils 0.4 10^3/uL (0.0-0.5); ABS Lymphocytes 0.8 10^3/uL (1.0-4.8); ABS Monocytes 1.1 10^3/uL (0.0-0.9); ABS Neutrophils 30.4 10^3/uL (1.5-7.6); ABS Nucleated RBC 0.04 10^3/ul; Eosinophil % 1.3 %; Lymphocyte % 2.3 %; Nucleated Red Blood Cells % 0.1 /100 WBC (0.0-0.4)
[2022-11-24] MEDS: cefTRIAXone 2 gm/50 mL D5W 2 GM/50 ML BAG IV SCH (06:42)
[2022-11-24] MEDS ORDERED: Magnesium Sulfate IV 1GM/100ML 1 GM/100 ML BAG IV ONE (07:00)
[2022-11-24] MEDS ORDERED: Potassium Chloride LIQUID 20 MEQ/15 ML LIQUID PO ONE (07:00)
[2022-11-24] MEDS ORDERED: Bumetanide IV 0.25 MG/ML 4 ml VIAL (1 mg) IV SLOW PU ONE ×2 (07:46→14:57)
[2022-11-24] MEDS: Aspirin EC 81 mg TAB.EC (enteric coated) PO SCH (08:29)
[2022-11-24] MEDS: Nystatin TOP POWDER 15 GM BTL TOPICAL SCH ×3 (08:30→20:25)
[2022-11-24] MEDS: Triamcinolone 0.025% OINT 15 GM TUBE TOPICAL SCH (08:30)
[2022-11-24] MEDS: PTO: Brimonidine P 0.1%(NF) 1 DROP BTL BOTH EYES SCH ×2 (08:30→20:25)
[2022-11-24] MEDS ORDERED: KCL 20 MEQ/100 ML IVPREMIX 20 MEQ/100 ML BAG IV ONE (08:33)
[2022-11-24] MEDS: Insulin GLARGINE 100 un/ml 10 ml VIAL SUBCUT SCH (08:51)
[2022-11-24] MEDS: HYDROmorphone 0.5 MG/0.5 ML SYRINGE IV SLOW PU PRN ×3 (11:08→23:58)
[2022-11-24 13:21] LABS: HIV 4th Generation Nonreactive (Nonreactive)
[2022-11-25 04:54] LABS: Hematocrit 29.8 % (35-45); Hemoglobin 10.1 g/dL (11.5-14.3); Mean Corpuscular Hemoglobin 30.1 pg (27-33); Mean Corpuscular Volume 88.5 fL (80-97); Mean Platelet Volume 8.6 fL (7.5-11.2); Platelet Count 111 10^3/uL (150-450); Red Blood Count 3.37 10^6/uL (3.63-4.92); Red Cell Distribution Width 17.5 % (12-17); White Blood Count 20.4 10^3/uL (3.8-11.8)
[2022-11-25 05:09] LABS: Calcium 7.1 mg/dL (8.6-10.3); Creatinine, Serum 3.01 mg/dL (0.51-0.95); Magnesium 2.2 mg/dL (1.9-2.7); eGFR CKD-EPI 15.6 (>60)
[2022-11-25 05:18] LABS: ABS Lymphocytes 0.7 10^3/uL (1.0-4.8); ABS Monocytes 0.8 10^3/uL (0.0-0.9); ABS Neutrophils 18.9 10^3/uL (1.5-7.6); ABS Nucleated RBC 0.03 10^3/ul; Lymphocyte % 3.2 %; Nucleated Red Blood Cells % 0.2 /100 WBC (0.0-0.4)
[2022-11-25] MEDS: cefTRIAXone 2 gm/50 mL D5W 2 GM/50 ML BAG IV SCH (05:52)
[2022-11-25] MEDS: Hydrocortisone INJ 100 MG/2ML 2 ML VIAL IV SCH (05:56)
[2022-11-25] MEDS: HYDROmorphone 0.5 MG/0.5 ML SYRINGE IV SLOW PU PRN ×3 (06:05→16:31)
[2022-11-25] MEDS: Aspirin EC 81 mg TAB.EC (enteric coated) PO SCH (07:52)
[2022-11-25] MEDS: Insulin GLARGINE 100 un/ml 10 ml VIAL SUBCUT SCH (08:11)
[2022-11-25] MEDS: PTO: Brimonidine P 0.1%(NF) 1 DROP BTL BOTH EYES SCH ×2 (08:11→22:59)
[2022-11-25] MEDS: Nystatin TOP POWDER 15 GM BTL TOPICAL SCH ×3 (08:12→23:00)
[2022-11-25] MEDS: Triamcinolone 0.025% OINT 15 GM TUBE TOPICAL SCH (08:12)
[2022-11-25] MEDS: Heparin DRIP 25,000 UNITS BAG 25,000 UNITS/500 ML BAG IV SCH (08:29)
[2022-11-25] MEDS: Heparin 1,000 UNIT/ML 10 ml (10,000 UNITS) CATHLAB/DIALYSIS DIALYSIS PRN (11:45)
[2022-11-25] MEDS ORDERED: Bumetanide IV 0.25 MG/ML 4 ml VIAL (1 mg) IV SLOW PU ONE ×2 (15:00→21:00)
[2022-11-25] MEDS: Ondansetron 4 mg VIAL 2 MG/ML 2 ml VIAL IV PRN (16:31)
[2022-11-25 22:05] LABS: Hepatitis B Surface Ab Not Immune (Immune)
[2022-11-26] MEDS: HYDROmorphone 0.5 MG/0.5 ML SYRINGE IV SLOW PU PRN (06:12)
[2022-11-26] MEDS: cefTRIAXone 2 gm/50 mL D5W 2 GM/50 ML BAG IV SCH (06:19)
[2022-11-26 06:39] LABS: Hemoglobin 10.4 g/dL (11.5-14.3); Mean Corpuscular Hemoglobin 29.5 pg (27-33); Mean Corpuscular Hgb Conc 33.5 g/dL (31-36); Mean Corpuscular Volume 88.2 fL (80-97); Mean Platelet Volume 8.7 fL (7.5-11.2); Platelet Count 114 10^3/uL (150-450); Red Blood Count 3.52 10^6/uL (3.63-4.92); Red Cell Distribution Width 17.2 % (12-17); White Blood Count 12.2 10^3/uL (3.8-11.8)
[2022-11-26 06:57] LABS: Calcium 7.7 mg/dL (8.6-10.3); Creatinine, Serum 2.68 mg/dL (0.51-0.95); Magnesium 1.8 mg/dL (1.9-2.7); Potassium 3.2 mmol/L (3.5-5.0); eGFR CKD-EPI 17.9 (>60)
[2022-11-26 07:45] LABS: ABS Eosinophils 0.1 10^3/uL (0.0-0.5); ABS Lymphocytes 1.1 10^3/uL (1.0-4.8); ABS Monocytes 0.9 10^3/uL (0.0-0.9); ABS Neutrophils 10.1 10^3/uL (1.5-7.6); ABS Nucleated RBC 0.01 10^3/ul; Eosinophil % 0.4 %; Lymphocyte % 8.8 %; Nucleated Red Blood Cells % 0.1 /100 WBC (0.0-0.4)
[2022-11-26] MEDS ORDERED: Potassium Chloride LIQUID 20 MEQ/15 ML LIQUID PO ONE (08:24)
[2022-11-26] MEDS: Aspirin EC 81 mg TAB.EC (enteric coated) PO SCH (09:09)
[2022-11-26] MEDS: PTO: Brimonidine P 0.1%(NF) 1 DROP BTL BOTH EYES SCH ×2 (09:11→21:35)
[2022-11-26] MEDS: Nystatin TOP POWDER 15 GM BTL TOPICAL SCH ×3 (09:12→21:39)
[2022-11-26] MEDS: Insulin GLARGINE 100 un/ml 10 ml VIAL SUBCUT SCH (09:12)
[2022-11-26] MEDS: Triamcinolone 0.025% OINT 15 GM TUBE TOPICAL SCH (09:13)
[2022-11-26] MEDS: SODIUM CHLORIDE 2% BOTH EYES PRN (09:14)
[2022-11-26] MEDS: Acetaminophen IV 1 GM/100ML 1,000 MG/100 ML BAG IV PRN ×2 (11:23→21:29)
[2022-11-26] MEDS: KCL 20 MEQ/100 ML IVPREMIX 20 MEQ/100 ML BAG IV SCH ×2 (12:10→14:13)
[2022-11-26] MEDS ORDERED: Bumetanide IV 0.25 MG/ML 10 ml VIAL (2.5 mg) IV SLOW PU ONE (12:31)
[2022-11-27] MEDS: cefTRIAXone 2 gm/50 mL D5W 2 GM/50 ML BAG IV SCH (05:18)
[2022-11-27] MEDS: SYNTHROID 50 MCG PO SCH (05:27)
[2022-11-27 05:56] LABS: Hematocrit 30.5 % (35-45); Hemoglobin 10.2 g/dL (11.5-14.3); Mean Corpuscular Hemoglobin 29.5 pg (27-33); Mean Corpuscular Hgb Conc 33.3 g/dL (31-36); Mean Corpuscular Volume 88.6 fL (80-97); Mean Platelet Volume 8.7 fL (7.5-11.2); Platelet Count 127 10^3/uL (150-450); Red Blood Count 3.45 10^6/uL (3.63-4.92); Red Cell Distribution Width 17.1 % (12-17); White Blood Count 10.6 10^3/uL (3.8-11.8)
[2022-11-27 06:09] LABS: Creatinine, Serum 3.19 mg/dL (0.51-0.95); Potassium 3.7 mmol/L (3.5-5.0); eGFR CKD-EPI 14.5 (>60)
[2022-11-27 07:54] LABS: Magnesium 1.9 mg/dL (1.9-2.7)
[2022-11-27] MEDS: HYDROmorphone 0.5 MG/0.5 ML SYRINGE IV SLOW PU PRN ×2 (08:17→20:29)
[2022-11-27 08:40] LABS: ABS Eosinophils 0.1 10^3/uL (0.0-0.5); ABS Lymphocytes 0.9 10^3/uL (1.0-4.8); ABS Monocytes 0.8 10^3/uL (0.0-0.9); ABS Neutrophils 8.8 10^3/uL (1.5-7.6); ABS Nucleated RBC 0.01 10^3/ul; Eosinophil % 0.6 %; Lymphocyte % 8.7 %; Nucleated Red Blood Cells % 0.1 /100 WBC (0.0-0.4)
[2022-11-27] MEDS: Aspirin EC 81 mg TAB.EC (enteric coated) PO SCH (08:57)
[2022-11-27] MEDS: Insulin GLARGINE 100 un/ml 10 ml VIAL SUBCUT SCH (08:58)
[2022-11-27] MEDS: Triamcinolone 0.025% OINT 15 GM TUBE TOPICAL SCH (08:58)
[2022-11-27] MEDS: Nystatin TOP POWDER 15 GM BTL TOPICAL SCH ×3 (08:58→20:33)
[2022-11-27] MEDS: PTO: Brimonidine P 0.1%(NF) 1 DROP BTL BOTH EYES SCH ×2 (08:59→20:33)
[2022-11-27] MEDS: Acetaminophen IV 1 GM/100ML 1,000 MG/100 ML BAG IV PRN (10:55)
[2022-11-27] MEDS: Bumetanide IV 0.25 MG/ML 4 ml VIAL (1 mg) IV SLOW PU SCH (12:59)
[2022-11-27 23:28] LABS: HIT ELISA 0.054 OD (<0.400); Heparin PF4 Antibody Interp Negative (Negative)
[2022-11-28] MEDS: HYDROmorphone 0.5 MG/0.5 ML SYRINGE IV SLOW PU PRN ×2 (03:31→19:27)
[2022-11-28] MEDS: SYNTHROID 50 MCG PO SCH (05:37)
[2022-11-28 06:02] LABS: Hematocrit 30.5 % (35-45); Hemoglobin 10.2 g/dL (11.5-14.3); Mean Corpuscular Hemoglobin 29.6 pg (27-33); Mean Corpuscular Hgb Conc 33.4 g/dL (31-36); Mean Corpuscular Volume 88.6 fL (80-97); Mean Platelet Volume 8.5 fL (7.5-11.2); Platelet Count 161 10^3/uL (150-450); Red Blood Count 3.45 10^6/uL (3.63-4.92); Red Cell Distribution Width 17.2 % (12-17); White Blood Count 12.3 10^3/uL (3.8-11.8)
[2022-11-28 06:13] LABS: Anion Gap 11 mmol/L (2-16); Blood Urea Nitrogen 55 mg/dL (6-24); CO2 Carbon Dioxide 26 mmol/L (22-32); Calcium 8.5 mg/dL (8.6-10.3); Chloride 101 mmol/L (101-111); Creatinine, Serum 3.33 mg/dL (0.51-0.95); Glucose 151 mg/dL (70-100); Potassium 3.8 mmol/L (3.5-5.0); Sodium 138 mmol/L (135-145); eGFR CKD-EPI 13.8 (>60)
[2022-11-28 06:53] LABS: ABS Eosinophils 0.1 10^3/uL (0.0-0.5); ABS Monocytes 0.9 10^3/uL (0.0-0.9); ABS Neutrophils 10.2 10^3/uL (1.5-7.6); ABS Nucleated RBC 0.01 10^3/ul; Eosinophil % 0.6 %; Lymphocyte % 8.4 %; Nucleated Red Blood Cells % 0.1 /100 WBC (0.0-0.4)
[2022-11-28] MEDS: Aspirin EC 81 mg TAB.EC (enteric coated) PO SCH (09:00)
[2022-11-28] MEDS: Insulin GLARGINE 100 un/ml 10 ml VIAL SUBCUT SCH (09:02)
[2022-11-28] MEDS: Bumetanide IV 0.25 MG/ML 4 ml VIAL (1 mg) IV SLOW PU SCH (09:09)
[2022-11-28] MEDS: Triamcinolone 0.025% OINT 15 GM TUBE TOPICAL SCH (10:36)
[2022-11-28] MEDS: Nystatin TOP POWDER 15 GM BTL TOPICAL SCH ×3 (10:36→19:27)
[2022-11-28] MEDS: PTO: Brimonidine P 0.1%(NF) 1 DROP BTL BOTH EYES SCH ×2 (10:36→19:27)
[2022-11-28] MEDS: Acetaminophen IV 1 GM/100ML 1,000 MG/100 ML BAG IV PRN ×2 (10:40→20:15)
[2022-11-28 13:40] LABS: CRP High Sensitivity > 80.00 mg/L (<2.00)
[2022-11-28] MEDS: Cefepime 1 GM in Dextrose 1 GM/50 ML BAG IV SCH (17:56)
[2022-11-29] MEDS: HYDROmorphone 0.5 MG/0.5 ML SYRINGE IV SLOW PU PRN ×3 (02:02→22:46)
[2022-11-29] MEDS: Cefepime 1 GM in Dextrose 1 GM/50 ML BAG IV SCH ×2 (05:54→18:19)
[2022-11-29 05:56] LABS: Hematocrit 30.1 % (35-45); Hemoglobin 10.2 g/dL (11.5-14.3); Mean Corpuscular Hgb Conc 33.7 g/dL (31-36); Mean Platelet Volume 8.6 fL (7.5-11.2); Platelet Count 193 10^3/uL (150-450); Red Blood Count 3.38 10^6/uL (3.63-4.92); Red Cell Distribution Width 17.1 % (12-17); White Blood Count 10.8 10^3/uL (3.8-11.8)
[2022-11-29] MEDS: SYNTHROID 50 MCG PO SCH (05:58)
[2022-11-29 06:17] LABS: Albumin 2.5 g/dL (3.2-5.2); Albumin/Globulin Ratio 0.8 (1-3); Calcium 8.1 mg/dL (8.6-10.3); Creatinine, Serum 3.2 mg/dL (0.51-0.95); Globulin 3.1 g/dL (2-4); Magnesium 1.6 mg/dL (1.9-2.7); Potassium 3.8 mmol/L (3.5-5.0); Total Bilirubin 0.4 mg/dL (0.2-1.0); Total Protein 5.6 g/dL (6.4-8.9); eGFR CKD-EPI 14.5 (>60)
[2022-11-29 07:02] LABS: ABS Eosinophils 0.1 10^3/uL (0.0-0.5); ABS Lymphocytes 1.2 10^3/uL (1.0-4.8); ABS Monocytes 0.9 10^3/uL (0.0-0.9); ABS Neutrophils 8.6 10^3/uL (1.5-7.6); ABS Nucleated RBC 0.01 10^3/ul; Eosinophil % 1.2 %; Lymphocyte % 11.2 %; Nucleated Red Blood Cells % 0.1 /100 WBC (0.0-0.4)
[2022-11-29] MEDS: Bumetanide IV 0.25 MG/ML 4 ml VIAL (1 mg) IV SLOW PU SCH (07:54)
[2022-11-29] MEDS: Insulin GLARGINE 100 un/ml 10 ml VIAL SUBCUT SCH (08:00)
[2022-11-29] MEDS ORDERED: Magnesium Sulfate IV 3 GM in NS 0.9% 100 ml BAG 100 ML IVPB ONE (08:00)
[2022-11-29] MEDS: Aspirin EC 81 mg TAB.EC (enteric coated) PO SCH (08:03)
[2022-11-29] MEDS: Acetaminophen IV 1 GM/100ML 1,000 MG/100 ML BAG IV PRN ×2 (08:08→23:59)
[2022-11-29] MEDS: PTO: Brimonidine P 0.1%(NF) 1 DROP BTL BOTH EYES SCH ×2 (08:13→20:39)
[2022-11-29] MEDS: Triamcinolone 0.025% OINT 15 GM TUBE TOPICAL SCH (08:17)
[2022-11-29] MEDS: Nystatin TOP POWDER 15 GM BTL TOPICAL SCH ×3 (11:04→20:39)
[2022-11-29 12:36] LABS: Rapid COVID-19 Molecular Undetected (Undetected)
[2022-11-29] MEDS: Ondansetron 4 mg VIAL 2 MG/ML 2 ml VIAL IV PRN (23:02)
[2022-11-30] MEDS: Cefepime 1 GM in Dextrose 1 GM/50 ML BAG IV SCH ×2 (06:14→18:00)
[2022-11-30] MEDS: SYNTHROID 50 MCG PO SCH ×2 (06:14→06:19)
[2022-11-30 06:55] LABS: Hematocrit 30.6 % (35-45); Hemoglobin 10.1 g/dL (11.5-14.3); Mean Corpuscular Hemoglobin 29.7 pg (27-33); Mean Corpuscular Hgb Conc 32.9 g/dL (31-36); Mean Corpuscular Volume 90.1 fL (80-97); Mean Platelet Volume 8.5 fL (7.5-11.2); Platelet Count 224 10^3/uL (150-450); Red Cell Distribution Width 16.9 % (12-17); White Blood Count 11.8 10^3/uL (3.8-11.8)
[2022-11-30 07:10] LABS: Calcium 8.3 mg/dL (8.6-10.3); Creatinine, Serum 2.85 mg/dL (0.51-0.95); Potassium 3.8 mmol/L (3.5-5.0); eGFR CKD-EPI 16.6 (>60)
[2022-11-30 07:57] LABS: ABS Eosinophils 0.1 10^3/uL (0.0-0.5); ABS Lymphocytes 1.1 10^3/uL (1.0-4.8); ABS Monocytes 0.9 10^3/uL (0.0-0.9); ABS Neutrophils 9.6 10^3/uL (1.5-7.6); ABS Nucleated RBC 0.01 10^3/ul; Eosinophil % 1.2 %; Lymphocyte % 9.7 %; Nucleated Red Blood Cells % 0.1 /100 WBC (0.0-0.4); RBC Morphology Normal (Normal)
[2022-11-30] MEDS: HYDROmorphone 0.5 MG/0.5 ML SYRINGE IV SLOW PU PRN (08:00)
[2022-11-30] MEDS: Bumetanide IV 0.25 MG/ML 4 ml VIAL (1 mg) IV SLOW PU SCH (09:39)
[2022-11-30] MEDS: Senna TAB 8.6 mg TAB PO SCH (09:40)
[2022-11-30] MEDS: Aspirin EC 81 mg TAB.EC (enteric coated) PO SCH (09:40)
[2022-11-30] MEDS: Insulin GLARGINE 100 un/ml 10 ml VIAL SUBCUT SCH (10:02)
[2022-11-30] MEDS: Triamcinolone 0.025% OINT 15 GM TUBE TOPICAL SCH (10:04)
[2022-11-30] MEDS: PTO: Brimonidine P 0.1%(NF) 1 DROP BTL BOTH EYES SCH ×2 (10:06→21:30)
[2022-11-30] MEDS: Nystatin TOP POWDER 15 GM BTL TOPICAL SCH ×3 (12:18→21:30)
[2022-11-30] MEDS: Polyethylene Glycol 3350 17 GM PACKET PO PRN (12:43)
[2022-11-30] MEDS ORDERED: HYDROmorphone 1 MG/1 ML SYRINGE IV SLOW PU ONE (14:53)
[2022-12-01] MEDS: SYNTHROID 50 MCG PO SCH (05:15)
[2022-12-01] MEDS: Cefepime 1 GM in Dextrose 1 GM/50 ML BAG IV SCH (05:16)
[2022-12-01 05:26] LABS: Hematocrit 30.5 % (35-45); Hemoglobin 10.1 g/dL (11.5-14.3); Mean Corpuscular Hemoglobin 29.6 pg (27-33); Mean Corpuscular Hgb Conc 33.2 g/dL (31-36); Mean Corpuscular Volume 89.4 fL (80-97); Mean Platelet Volume 8.3 fL (7.5-11.2); Platelet Count 267 10^3/uL (150-450); Red Blood Count 3.41 10^6/uL (3.63-4.92); Red Cell Distribution Width 17.1 % (12-17); White Blood Count 10.7 10^3/uL (3.8-11.8)
[2022-12-01 05:42] LABS: Calcium 8.7 mg/dL (8.6-10.3); Creatinine, Serum 2.51 mg/dL (0.51-0.95); Magnesium 1.8 mg/dL (1.9-2.7); Potassium 3.9 mmol/L (3.5-5.0); eGFR CKD-EPI 19.4 (>60)
[2022-12-01 05:50] LABS: ABS Basophils 0.1 10^3/uL (0.0-0.1); ABS Eosinophils 0.1 10^3/uL (0.0-0.5); ABS Monocytes 0.9 10^3/uL (0.0-0.9); ABS Neutrophils 8.7 10^3/uL (1.5-7.6); ABS Nucleated RBC 0.01 10^3/ul; Eosinophil % 0.9 %; Lymphocyte % 9.3 %
[2022-12-01] MEDS: HYDROmorphone 0.5 MG/0.5 ML SYRINGE IV SLOW PU PRN ×3 (06:00→23:57)
[2022-12-01] MEDS: Aspirin EC 81 mg TAB.EC (enteric coated) PO SCH (09:25)
[2022-12-01] MEDS: PTO: Brimonidine P 0.1%(NF) 1 DROP BTL BOTH EYES SCH ×2 (09:25→20:42)
[2022-12-01] MEDS: Insulin GLARGINE 100 un/ml 10 ml VIAL SUBCUT SCH (09:26)
[2022-12-01] MEDS: Senna TAB 8.6 mg TAB PO SCH (09:26)
[2022-12-01] MEDS: Triamcinolone 0.025% OINT 15 GM TUBE TOPICAL SCH (09:27)
[2022-12-01] MEDS: Nystatin TOP POWDER 15 GM BTL TOPICAL SCH ×3 (09:27→20:43)
[2022-12-01] MEDS: Bumetanide IV 0.25 MG/ML 4 ml VIAL (1 mg) IV SLOW PU SCH (09:39)
[2022-12-01] MEDS: SODIUM CHLORIDE 2% BOTH EYES PRN (09:39)
[2022-12-01] MEDS: Acetaminophen IV 1 GM/100ML 1,000 MG/100 ML BAG IV PRN (09:45)
[2022-12-02 05:21] LABS: ABS Eosinophils 0.1 10^3/uL (0.0-0.5); ABS Lymphocytes 1.1 10^3/uL (1.0-4.8); ABS Monocytes 0.9 10^3/uL (0.0-0.9); ABS Neutrophils 7.2 10^3/uL (1.5-7.6); Eosinophil % 1.5 %; Hematocrit 28.4 % (35-45); Hemoglobin 9.5 g/dL (11.5-14.3); Lymphocyte % 11.4 %; Mean Corpuscular Hgb Conc 33.6 g/dL (31-36); Mean Corpuscular Volume 89.4 fL (80-97); Mean Platelet Volume 8.2 fL (7.5-11.2); Platelet Count 283 10^3/uL (150-450); Red Blood Count 3.17 10^6/uL (3.63-4.92); Red Cell Distribution Width 16.7 % (12-17); White Blood Count 9.4 10^3/uL (3.8-11.8)
[2022-12-02 05:36] LABS: Calcium 8.4 mg/dL (8.6-10.3); Creatinine, Serum 2.27 mg/dL (0.51-0.95); Magnesium 1.7 mg/dL (1.9-2.7); Potassium 3.9 mmol/L (3.5-5.0); eGFR CKD-EPI 21.8 (>60)
[2022-12-02] MEDS: SYNTHROID 50 MCG PO SCH (06:01)
[2022-12-02] MEDS: HYDROmorphone 0.5 MG/0.5 ML SYRINGE IV SLOW PU PRN ×2 (06:01→10:29)
[2022-12-02] MEDS ORDERED: Cefdinir SUSP ORALSYR 50 MG/ML (250 mg/5 ml) PO SCH ×2 (09:00→10:00)
[2022-12-02] MEDS: Aspirin EC 81 mg TAB.EC (enteric coated) PO SCH (10:28)
[2022-12-02] MEDS: Senna TAB 8.6 mg TAB PO SCH (10:28)
[2022-12-02] MEDS: Bumetanide IV 0.25 MG/ML 4 ml VIAL (1 mg) IV SLOW PU SCH (10:29)
[2022-12-02] MEDS: PTO: Brimonidine P 0.1%(NF) 1 DROP BTL BOTH EYES SCH ×2 (10:29→22:17)
[2022-12-02] MEDS: Insulin GLARGINE 100 un/ml 10 ml VIAL SUBCUT SCH (10:30)
[2022-12-02] MEDS: Nystatin TOP POWDER 15 GM BTL TOPICAL SCH ×2 (10:30→13:20)
[2022-12-02] MEDS: Triamcinolone 0.025% OINT 15 GM TUBE TOPICAL SCH (10:31)
[2022-12-02] MEDS ORDERED: Cefepime ADVAN 1 GM in NS 0.9% 50 ML 50 ML IVPB SCH (11:00)
[2022-12-02] MEDS ORDERED: Cefepime 1 GM in Dextrose 1 GM/50 ML BAG IV SCH (11:00)
[2022-12-02 14:29] LABS: Urine Appearance Cloudy; Urine Bilirubin Negative (Negative); Urine Blood 2+ (Negative); Urine Color Straw; Urine Glucose Negative (Negative); Urine Ketones Negative (Negative); Urine Nitrite Negative (Negative); Urine Protein Negative (Negative); Urine Specific Gravity 1.006 (1.002-1.030); Urine Urobilinogen Negative (Negative)
[2022-12-02 14:40] LABS: Urine Bacteria 1+ (Absent); Urine Red Blood Cell Trace(0-2/hpf) (Absent); Urine Squamous Epithelial Cell Present (Absent); Urine White Blood Cell 2+(11-20/hpf) (Absent)
[2022-12-02] MEDS: Acetaminophen IV 1 GM/100ML 1,000 MG/100 ML BAG IV PRN (15:59)
[2022-12-02] MEDS: Miconazole 2% Top Powder BTL TOPICAL SCH ×2 (17:44→22:21)
[2022-12-02] MEDS: Polyethylene Glycol 3350 17 GM PACKET PO PRN (19:26)
[2022-12-03] MEDS: Acetaminophen IV 1 GM/100ML 1,000 MG/100 ML BAG IV PRN (00:46)
[2022-12-03 04:39] LABS: ABS Basophils 0.1 10^3/uL (0.0-0.1); ABS Eosinophils 0.1 10^3/uL (0.0-0.5); ABS Lymphocytes 1.3 10^3/uL (1.0-4.8); ABS Monocytes 0.8 10^3/uL (0.0-0.9); ABS Nucleated RBC 0.01 10^3/ul; Eosinophil % 1.5 %; Hematocrit 27.9 % (35-45); Hemoglobin 9.4 g/dL (11.5-14.3); Lymphocyte % 16.2 %; Mean Corpuscular Hemoglobin 29.9 pg (27-33); Mean Corpuscular Hgb Conc 33.7 g/dL (31-36); Mean Corpuscular Volume 88.8 fL (80-97); Mean Platelet Volume 8.2 fL (7.5-11.2); Nucleated Red Blood Cells % 0.1 /100 WBC (0.0-0.4); Platelet Count 318 10^3/uL (150-450); Red Blood Count 3.14 10^6/uL (3.63-4.92); Red Cell Distribution Width 16.2 % (12-17); White Blood Count 8.3 10^3/uL (3.8-11.8)
[2022-12-03 04:54] LABS: Calcium 8.8 mg/dL (8.6-10.3); Creatinine, Serum 2.14 mg/dL (0.51-0.95); Magnesium 1.6 mg/dL (1.9-2.7); Potassium 3.8 mmol/L (3.5-5.0); eGFR CKD-EPI 23.4 (>60)
[2022-12-03] MEDS: SYNTHROID 50 MCG PO SCH (05:29)
[2022-12-03] MEDS ORDERED: Magnesium Sulfate 2 gm BAG 2 GM/50 ML BAG IVPB ONE (08:00)
[2022-12-03] MEDS ORDERED: Bumetanide IV 0.25 MG/ML 4 ml VIAL (1 mg) IV SLOW PU SCH (09:00)
[2022-12-03] MEDS: Aspirin EC 81 mg TAB.EC (enteric coated) PO SCH (09:56)
[2022-12-03] MEDS: Senna TAB 8.6 mg TAB PO SCH (09:56)
[2022-12-03] MEDS: Miconazole 2% Top Powder BTL TOPICAL SCH ×3 (09:58→20:36)
[2022-12-03] MEDS: PTO: Brimonidine P 0.1%(NF) 1 DROP BTL BOTH EYES SCH ×2 (09:58→20:36)
[2022-12-03] MEDS: Insulin GLARGINE 100 un/ml 10 ml VIAL SUBCUT SCH (09:59)
[2022-12-03] MEDS: Triamcinolone 0.025% OINT 15 GM TUBE TOPICAL SCH (10:00)
[2022-12-03] MEDS: HYDROmorphone 0.5 MG/0.5 ML SYRINGE IV SLOW PU PRN (10:01)
[2022-12-03] MEDS: Ondansetron 4 mg VIAL 2 MG/ML 2 ml VIAL IV PRN (18:24)
[2022-12-04] MEDS: SYNTHROID 50 MCG PO SCH (05:01)
[2022-12-04] MEDS: Acetaminophen IV 1 GM/100ML 1,000 MG/100 ML BAG IV PRN (05:12)
[2022-12-04] MEDS: Aspirin EC 81 mg TAB.EC (enteric coated) PO SCH (10:10)
[2022-12-04] MEDS: Senna TAB 8.6 mg TAB PO SCH (10:10)
[2022-12-04] MEDS: Insulin GLARGINE 100 un/ml 10 ml VIAL SUBCUT SCH (10:11)
[2022-12-04] MEDS: PTO: Brimonidine P 0.1%(NF) 1 DROP BTL BOTH EYES SCH ×2 (10:32→21:51)
[2022-12-04 10:53] LABS: Calcium 8.6 mg/dL (8.6-10.3); Creatinine, Serum 2.22 mg/dL (0.51-0.95); Potassium 3.7 mmol/L (3.5-5.0); eGFR CKD-EPI 22.4 (>60)
[2022-12-04] MEDS: Triamcinolone 0.025% OINT 15 GM TUBE TOPICAL SCH (11:34)
[2022-12-04] MEDS: Miconazole 2% Top Powder BTL TOPICAL SCH ×3 (11:35→21:49)
[2022-12-04] MEDS: Morphine 2 MG/ML SYRINGE IV PRN ×2 (15:45→21:59)
[2022-12-04 17:28] LABS: Urine Appearance Cloudy; Urine Bilirubin Negative (Negative); Urine Blood 2+ (Negative); Urine Color Yellow; Urine Glucose Negative (Negative); Urine Ketones Negative (Negative); Urine Nitrite Negative (Negative); Urine Protein 2+(100 mg/dL) (Negative); Urine Specific Gravity 1.017 (1.002-1.030); Urine Urobilinogen Negative (Negative)
[2022-12-04 17:34] LABS: Urine Bacteria 1+ (Absent); Urine Red Blood Cell 1+(3-5/hpf) (Absent); Urine Squamous Epithelial Cell Present (Absent); Urine White Blood Cell 3+(>20/hpf) (Absent)
[2022-12-05] MEDS: SYNTHROID 50 MCG PO SCH (06:08)
[2022-12-05 06:15] LABS: ABS Basophils 0.1 10^3/uL (0.0-0.1); ABS Eosinophils 0.1 10^3/uL (0.0-0.5); ABS Lymphocytes 1.1 10^3/uL (1.0-4.8); ABS Monocytes 0.7 10^3/uL (0.0-0.9); ABS Neutrophils 5.2 10^3/uL (1.5-7.6); ABS Nucleated RBC 0.01 10^3/ul; Eosinophil % 1.6 %; Hematocrit 27.6 % (35-45); Hemoglobin 9.2 g/dL (11.5-14.3); Lymphocyte % 15.3 %; Mean Corpuscular Hgb Conc 33.5 g/dL (31-36); Mean Corpuscular Volume 89.6 fL (80-97); Mean Platelet Volume 8.2 fL (7.5-11.2); Nucleated Red Blood Cells % 0.1 /100 WBC (0.0-0.4); Platelet Count 369 10^3/uL (150-450); Red Blood Count 3.08 10^6/uL (3.63-4.92); Red Cell Distribution Width 16.3 % (12-17); White Blood Count 7.2 10^3/uL (3.8-11.8)
[2022-12-05 06:34] LABS: Calcium 9.1 mg/dL (8.6-10.3); Creatinine, Serum 2.15 mg/dL (0.51-0.95); Potassium 3.7 mmol/L (3.5-5.0); eGFR CKD-EPI 23.3 (>60)
[2022-12-05] MEDS: Insulin GLARGINE 100 un/ml 10 ml VIAL SUBCUT SCH (07:48)
[2022-12-05] MEDS: Aspirin EC 81 mg TAB.EC (enteric coated) PO SCH (09:40)
[2022-12-05] MEDS: Miconazole 2% Top Powder BTL TOPICAL SCH ×3 (09:40→20:32)
[2022-12-05] MEDS: Triamcinolone 0.025% OINT 15 GM TUBE TOPICAL SCH (09:41)
[2022-12-05] MEDS: PTO: Brimonidine P 0.1%(NF) 1 DROP BTL BOTH EYES SCH ×2 (09:41→20:32)
[2022-12-05] MEDS: Amoxicillin/Clavul 875/125 TAB (Augmentin 875 tab) PO SCH ×2 (11:32→20:32)
[2022-12-05] MEDS: Acetaminophen IV 1 GM/100ML 1,000 MG/100 ML BAG IV PRN ×2 (11:42→20:46)
[2022-12-06] MEDS: Morphine 2 MG/ML SYRINGE IV PRN (02:05)
[2022-12-06] MEDS: SYNTHROID 50 MCG PO SCH (06:04)
[2022-12-06] MEDS: Insulin GLARGINE 100 un/ml 10 ml VIAL SUBCUT SCH (10:47)
[2022-12-06] MEDS: Aspirin EC 81 mg TAB.EC (enteric coated) PO SCH (10:47)
[2022-12-06] MEDS: Amoxicillin/Clavul 875/125 TAB (Augmentin 875 tab) PO SCH ×2 (10:48→22:02)
[2022-12-06] MEDS: Miconazole 2% Top Powder BTL TOPICAL SCH ×3 (10:48→22:04)
[2022-12-06] MEDS: PTO: Brimonidine P 0.1%(NF) 1 DROP BTL BOTH EYES SCH ×2 (10:48→22:04)
[2022-12-06] MEDS: Triamcinolone 0.025% OINT 15 GM TUBE TOPICAL SCH (10:50)
[2022-12-06 11:44] LABS: ABS Basophils 0.1 10^3/uL (0.0-0.1); ABS Lymphocytes 0.6 10^3/uL (1.0-4.8); ABS Monocytes 0.6 10^3/uL (0.0-0.9); ABS Neutrophils 4.5 10^3/uL (1.5-7.6); ABS Nucleated RBC 0.01 10^3/ul; Eosinophil % 0.7 %; Hematocrit 27.2 % (35-45); Hemoglobin 9.1 g/dL (11.5-14.3); Mean Corpuscular Hemoglobin 29.9 pg (27-33); Mean Corpuscular Hgb Conc 33.5 g/dL (31-36); Mean Corpuscular Volume 89.2 fL (80-97); Mean Platelet Volume 8.6 fL (7.5-11.2); Nucleated Red Blood Cells % 0.1 /100 WBC (0.0-0.4); Platelet Count 355 10^3/uL (150-450); Red Blood Count 3.06 10^6/uL (3.63-4.92); Red Cell Distribution Width 15.9 % (12-17); White Blood Count 5.8 10^3/uL (3.8-11.8)
[2022-12-06 13:13] LABS: Calcium 8.7 mg/dL (8.6-10.3); Creatinine, Serum 2.35 mg/dL (0.51-0.95); Potassium 4.2 mmol/L (3.5-5.0); eGFR CKD-EPI 20.9 (>60)
[2022-12-06] MEDS: HYDROmorphone 0.5 MG/0.5 ML SYRINGE IV SLOW PU PRN (23:38)
[2022-12-06] MEDS: CMCS: Brimonidine P 0.1%(NF) 1 DROP BTL BOTH EYES SCH (23:45)
[2022-12-07] MEDS: PTO: Brimonidine P 0.1%(NF) 1 DROP BTL BOTH EYES SCH (00:46)
[2022-12-07] MEDS: SYNTHROID 50 MCG PO SCH (05:16)
[2022-12-07 05:40] LABS: ABS Basophils 0.1 10^3/uL (0.0-0.1); ABS Monocytes 0.6 10^3/uL (0.0-0.9); ABS Neutrophils 2.5 10^3/uL (1.5-7.6); Eosinophil % 0.9 %; Hematocrit 26.2 % (35-45); Hemoglobin 8.7 g/dL (11.5-14.3); Lymphocyte % 23.1 %; Mean Corpuscular Hemoglobin 29.9 pg (27-33); Mean Corpuscular Hgb Conc 33.4 g/dL (31-36); Mean Corpuscular Volume 89.4 fL (80-97); Platelet Count 310 10^3/uL (150-450); Red Blood Count 2.93 10^6/uL (3.63-4.92); Red Cell Distribution Width 16.3 % (12-17); White Blood Count 4.2 10^3/uL (3.8-11.8)
[2022-12-07 06:06] LABS: Calcium 8.6 mg/dL (8.6-10.3); Creatinine, Serum 2.15 mg/dL (0.51-0.95); Potassium 3.9 mmol/L (3.5-5.0); eGFR CKD-EPI 23.3 (>60)
[2022-12-07] MEDS: Amoxicillin/Clavul 875/125 TAB (Augmentin 875 tab) PO SCH ×2 (10:04→20:57)
[2022-12-07] MEDS: Aspirin EC 81 mg TAB.EC (enteric coated) PO SCH (10:06)
[2022-12-07] MEDS: Insulin GLARGINE 100 un/ml 10 ml VIAL SUBCUT SCH (10:09)
[2022-12-07] MEDS: CMCS: Brimonidine P 0.1%(NF) 1 DROP BTL BOTH EYES SCH ×2 (10:10→21:02)
[2022-12-07] MEDS: Miconazole 2% Top Powder BTL TOPICAL SCH ×3 (10:10→21:40)
[2022-12-07] MEDS: Triamcinolone 0.025% OINT 15 GM TUBE TOPICAL SCH (10:11)
[2022-12-07] MEDS: Acetaminophen IV 1 GM/100ML 1,000 MG/100 ML BAG IV PRN (21:11)
[2022-12-08] MEDS: SYNTHROID 50 MCG PO SCH (05:37)
[2022-12-08] MEDS: Amoxicillin/Clavul 875/125 TAB (Augmentin 875 tab) PO SCH ×2 (11:05→22:24)
[2022-12-08] MEDS: Aspirin EC 81 mg TAB.EC (enteric coated) PO SCH (11:05)
[2022-12-08] MEDS: Miconazole 2% Top Powder BTL TOPICAL SCH ×3 (11:09→22:30)
[2022-12-08] MEDS: CMCS: Brimonidine P 0.1%(NF) 1 DROP BTL BOTH EYES SCH ×2 (11:09→22:28)
[2022-12-08] MEDS: Triamcinolone 0.025% OINT 15 GM TUBE TOPICAL SCH (11:12)
[2022-12-08] MEDS: Insulin GLARGINE 100 un/ml 10 ml VIAL SUBCUT SCH (11:12)
[2022-12-08] MEDS: Benzocaine/Menthol LOZ MT PRN (16:43)
[2022-12-08] MEDS: Acetaminophen IV 1 GM/100ML 1,000 MG/100 ML BAG IV PRN (22:21)
[2022-12-09] MEDS: SYNTHROID 50 MCG PO SCH (06:02)
[2022-12-09] MEDS: Acetaminophen IV 1 GM/100ML 1,000 MG/100 ML BAG IV PRN (06:16)
[2022-12-09] MEDS: Aspirin EC 81 mg TAB.EC (enteric coated) PO SCH (08:10)
[2022-12-09] MEDS: Amoxicillin/Clavul 875/125 TAB (Augmentin 875 tab) PO SCH ×2 (08:11→22:34)
[2022-12-09] MEDS: CMCS: Brimonidine P 0.1%(NF) 1 DROP BTL BOTH EYES SCH ×2 (08:12→22:36)
[2022-12-09] MEDS: Insulin GLARGINE 100 un/ml 10 ml VIAL SUBCUT SCH (08:12)
[2022-12-09] MEDS: Miconazole 2% Top Powder BTL TOPICAL SCH ×3 (08:13→22:35)
[2022-12-09] MEDS: Triamcinolone 0.025% OINT 15 GM TUBE TOPICAL SCH (08:13)
[2022-12-09] MEDS: Benzocaine/Menthol LOZ MT PRN (22:39)
[2022-12-10] MEDS: SYNTHROID 50 MCG PO SCH (06:20)
[2022-12-10 06:29] LABS: ABS Eosinophils 0.1 10^3/uL (0.0-0.5); ABS Lymphocytes 1.5 10^3/uL (1.0-4.8); ABS Monocytes 0.5 10^3/uL (0.0-0.9); ABS Neutrophils 2.4 10^3/uL (1.5-7.6); Eosinophil % 2.1 %; Hematocrit 28.7 % (35-45); Hemoglobin 9.7 g/dL (11.5-14.3); Lymphocyte % 33.3 %; Mean Corpuscular Hemoglobin 30.1 pg (27-33); Mean Corpuscular Hgb Conc 33.7 g/dL (31-36); Mean Corpuscular Volume 89.2 fL (80-97); Mean Platelet Volume 8.1 fL (7.5-11.2); Nucleated Red Blood Cells % 0.1 /100 WBC (0.0-0.4); Platelet Count 301 10^3/uL (150-450); Red Blood Count 3.22 10^6/uL (3.63-4.92); Red Cell Distribution Width 16.6 % (12-17); White Blood Count 4.5 10^3/uL (3.8-11.8)
[2022-12-10 06:47] LABS: Calcium 8.5 mg/dL (8.6-10.3); Creatinine, Serum 1.93 mg/dL (0.51-0.95); Magnesium 1.6 mg/dL (1.9-2.7); Potassium 3.7 mmol/L (3.5-5.0); eGFR CKD-EPI 26.5 (>60)
[2022-12-10] MEDS: Insulin GLARGINE 100 un/ml 10 ml VIAL SUBCUT SCH (08:27)
[2022-12-10] MEDS: Amoxicillin/Clavul 875/125 TAB (Augmentin 875 tab) PO SCH ×2 (08:28→21:13)
[2022-12-10] MEDS: Aspirin EC 81 mg TAB.EC (enteric coated) PO SCH (08:28)
[2022-12-10] MEDS: CMCS: Brimonidine P 0.1%(NF) 1 DROP BTL BOTH EYES SCH ×2 (08:29→21:14)
[2022-12-10] MEDS: Miconazole 2% Top Powder BTL TOPICAL SCH ×3 (08:44→21:18)
[2022-12-10] MEDS: Triamcinolone 0.025% OINT 15 GM TUBE TOPICAL SCH (11:11)
[2022-12-10] MEDS: Ondansetron 4 mg VIAL 2 MG/ML 2 ml VIAL IV PRN (11:16)
[2022-12-10] MEDS ORDERED: Magnesium Sulfate 2 gm BAG 2 GM/50 ML BAG IVPB ONE (15:08)
[2022-12-11] MEDS: SYNTHROID 50 MCG PO SCH (05:15)
[2022-12-11] MEDS: Insulin GLARGINE 100 un/ml 10 ml VIAL SUBCUT SCH (08:50)
[2022-12-11] MEDS: Amoxicillin/Clavul 875/125 TAB (Augmentin 875 tab) PO SCH (08:52)
[2022-12-11] MEDS: Aspirin EC 81 mg TAB.EC (enteric coated) PO SCH (08:52)
[2022-12-11] MEDS: Miconazole 2% Top Powder BTL TOPICAL SCH (08:55)
[2022-12-11] MEDS: CMCS: Brimonidine P 0.1%(NF) 1 DROP BTL BOTH EYES SCH (08:55)
[2022-12-11] MEDS: Triamcinolone 0.025% OINT 15 GM TUBE TOPICAL SCH (08:55)
[2022-12-11 09:50] VITALS: BP 110/73
[2022-12-11 11:15] LABS: ABS Eosinophils 0.2 10^3/uL (0.0-0.5); ABS Lymphocytes 1.1 10^3/uL (1.0-4.8); ABS Monocytes 0.5 10^3/uL (0.0-0.9); ABS Neutrophils 4.7 10^3/uL (1.5-7.6); Eosinophil % 2.4 %; Hematocrit 31.9 % (35-45); Hemoglobin 10.6 g/dL (11.5-14.3); Lymphocyte % 16.9 %; Mean Corpuscular Hemoglobin 29.9 pg (27-33); Mean Corpuscular Hgb Conc 33.2 g/dL (31-36); Mean Platelet Volume 8.1 fL (7.5-11.2); Platelet Count 333 10^3/uL (150-450); Red Blood Count 3.54 10^6/uL (3.63-4.92); Red Cell Distribution Width 16.3 % (12-17); White Blood Count 6.5 10^3/uL (3.8-11.8)
[2022-12-11 12:12] LABS: Calcium 8.5 mg/dL (8.6-10.3); Magnesium 1.8 mg/dL (1.9-2.7); Potassium 3.8 mmol/L (3.5-5.0); Total Bilirubin 0.4 mg/dL (0.2-1.0)
[2022-12-11 12:18] LABS: Albumin/Globulin Ratio 0.8 (1-3); Creatinine, Serum 2.04 mg/dL (0.51-0.95); eGFR CKD-EPI 24.8 (>60)
[2022-12-11] MEDS ORDERED: Magnesium Sulfate 2 gm BAG 2 GM/50 ML BAG IVPB ONE (12:54)
== END 2022-12-11 13:20 | disposition swing bed (61) | DRG 853 ==
LOC: ED 14:40 → OR 21:29 → ICU 22:16 → SUATTDRO 22:16 → ICU 11-22 20:46 → MED 11-25 17:15
PROVIDERS: ADMIT Student in an Organized Health Care Education/Training Program; ATTEND Internal Medicine

== ENCOUNTER 2022-12-11 13:24 | Inpatient (IN) ==
[2022-12-11] MEDS ORDERED: Sodium Chloride 2% OPTH.SOL 15 ML BTL BOTH EYES PRN (14:17)
[2022-12-11] MEDS: CMCS: Brimonidine P 0.1%(NF) 1 DROP BTL BOTH EYES SCH (21:40)
[2022-12-12] MEDS: Multivitamins/Minerals TAB PO SCH (09:37)
[2022-12-12] MEDS: Aspirin EC 81 mg TAB.EC (enteric coated) PO SCH (09:37)
[2022-12-12] MEDS: CMCS: Brimonidine P 0.1%(NF) 1 DROP BTL BOTH EYES SCH ×2 (09:42→20:38)
[2022-12-12] MEDS: Triamcinolone 0.025% OINT 15 GM TUBE TOPICAL SCH (09:43)
[2022-12-13] MEDS: Aspirin EC 81 mg TAB.EC (enteric coated) PO SCH (10:22)
[2022-12-13] MEDS: CMCS: Brimonidine P 0.1%(NF) 1 DROP BTL BOTH EYES SCH ×2 (10:23→20:28)
[2022-12-13] MEDS: Multivitamins/Minerals TAB PO SCH (10:24)
[2022-12-13] MEDS: Triamcinolone 0.025% OINT 15 GM TUBE TOPICAL SCH (10:25)
[2022-12-14] MEDS: Aspirin EC 81 mg TAB.EC (enteric coated) PO SCH (09:19)
[2022-12-14] MEDS: Multivitamins/Minerals TAB PO SCH (09:19)
[2022-12-14] MEDS: CMCS: Brimonidine P 0.1%(NF) 1 DROP BTL BOTH EYES SCH ×2 (09:23→20:00)
[2022-12-14] MEDS: Triamcinolone 0.025% OINT 15 GM TUBE TOPICAL SCH (09:24)
[2022-12-15] MEDS: CMCS: Brimonidine P 0.1%(NF) 1 DROP BTL BOTH EYES SCH ×2 (09:43→19:38)
[2022-12-15] MEDS: Aspirin EC 81 mg TAB.EC (enteric coated) PO SCH (09:45)
[2022-12-15] MEDS: Multivitamins/Minerals TAB PO SCH (09:45)
[2022-12-15] MEDS: Triamcinolone 0.025% OINT 15 GM TUBE TOPICAL SCH (09:48)
[2022-12-16 09:51] VITALS: BP 131/79
[2022-12-16] MEDS: Multivitamins/Minerals TAB PO SCH (09:51)
[2022-12-16] MEDS: Aspirin EC 81 mg TAB.EC (enteric coated) PO SCH (09:52)
[2022-12-16] MEDS: Triamcinolone 0.025% OINT 15 GM TUBE TOPICAL SCH (09:54)
[2022-12-16] MEDS: CMCS: Brimonidine P 0.1%(NF) 1 DROP BTL BOTH EYES SCH (09:55)
== END 2022-12-16 14:45 | DRG 693 ==
LOC: MED 13:24
PROVIDERS: ADMIT Internal Medicine; ATTEND Internal Medicine Hematology & Oncology

== ENCOUNTER 2023-04-14 13:59 | Inpatient (IN) ==
[2023-04-14 18:58] LABS: ABS Basophils 0.1 10^3/uL (0.0-0.1); ABS Eosinophils 0.1 10^3/uL (0.0-0.5); ABS Lymphocytes 1.4 10^3/uL (1.0-4.8); ABS Monocytes 0.6 10^3/uL (0.0-0.9); ABS Neutrophils 6.4 10^3/uL (1.5-7.6); Eosinophil % 1.5 %; Hematocrit 30.9 % (35-45); Lymphocyte % 16.3 %; Mean Corpuscular Hemoglobin 30.1 pg (27-33); Mean Corpuscular Hgb Conc 32.4 g/dL (31-36); Mean Platelet Volume 7.9 fL (7.5-11.2); Platelet Count 460 10^3/uL (150-450); Red Blood Count 3.32 10^6/uL (3.63-4.92); Red Cell Distribution Width 20.1 % (12-17); White Blood Count 8.6 10^3/uL (3.8-11.8)
[2023-04-14 19:18] LABS: Albumin 3.2 g/dL (3.2-5.2); Albumin/Globulin Ratio 0.8 (1-3); C Reactive Protein 22.36 mg/L (<8.01); Calcium 9.6 mg/dL (8.6-10.3); Creatinine, Serum 2.85 mg/dL (0.51-0.95); Globulin 4.2 g/dL (2-4); Potassium 4.6 mmol/L (3.5-5.0); Total Bilirubin 0.3 mg/dL (0.2-1.0); Total Protein 7.4 g/dL (6.4-8.9); eGFR CKD-EPI 16.6 (>60)
[2023-04-14] MEDS ORDERED: Magnesium Hydroxide LIQ 30 ML UDC PO ONE (20:45)
[2023-04-14 22:01] LABS: Urine Appearance Turbid; Urine Bilirubin Negative (Negative); Urine Blood 1+ (Negative); Urine Color Amber; Urine Glucose Negative (Negative); Urine Ketones Negative (Negative); Urine Nitrite Negative (Negative); Urine Protein 2+(100 mg/dL) (Negative); Urine Specific Gravity 1.014 (1.002-1.030); Urine Urobilinogen Negative (Negative)
[2023-04-14 22:05] LABS: Urine Bacteria 1+ (Absent); Urine Red Blood Cell 3+(>10/hpf) (Absent); Urine Squamous Epithelial Cell Present (Absent); Urine White Blood Cell 3+(>20/hpf) (Absent)
[2023-04-14] MEDS ORDERED: cefTRIAXone 1 gm/50 mL D5W 1 GM/50 ML BAG IV ONE (22:27)
[2023-04-14] MEDS ORDERED: Lactated Ringers 1000 ml BAG 1,000 ML IV ONE (22:29)
[2023-04-14] MEDS ORDERED: Heparin 5000 UNITS/ML 1 mL VIAL SUBCUT ONE (23:49)
[2023-04-15] MEDS: Cefepime 1 GM in Dextrose 1 GM/50 ML BAG IV SCH ×2 (02:37→12:08)
[2023-04-15] MEDS ORDERED: Magnesium Hydroxide LIQ 30 ML UDC PO PRN (04:13)
[2023-04-15] MEDS ORDERED: Dextrose 50% Syringe 50 ml 25 GM/50 ML SYRINGE IV PUSH PRN (04:49)
[2023-04-15 07:11] LABS: Hematocrit 25.1 % (35-45); Hemoglobin 8.3 g/dL (11.5-14.3); Mean Corpuscular Hemoglobin 30.6 pg (27-33); Mean Corpuscular Hgb Conc 33.1 g/dL (31-36); Mean Corpuscular Volume 92.3 fL (80-97); Mean Platelet Volume 8.2 fL (7.5-11.2); Platelet Count 332 10^3/uL (150-450); Red Blood Count 2.72 10^6/uL (3.63-4.92); Red Cell Distribution Width 19.9 % (12-17); White Blood Count 6.5 10^3/uL (3.8-11.8)
[2023-04-15 07:31] LABS: Calcium 8.8 mg/dL (8.6-10.3); Creatinine, Serum 2.7 mg/dL (0.51-0.95); Magnesium 1.8 mg/dL (1.9-2.7); Potassium 4.3 mmol/L (3.5-5.0); eGFR CKD-EPI 17.7 (>60)
[2023-04-15] MEDS: Brimonidine P 0.1%(NF) 1 DROP BTL BOTH EYES SCH (08:02)
[2023-04-15] MEDS ORDERED: Aspirin EC 81 mg TAB.EC (enteric coated) PO SCH (11:00)
[2023-04-15 14:29] LABS: ABS Basophils 0.1 10^3/uL (0.0-0.1); ABS Eosinophils 0.1 10^3/uL (0.0-0.5); ABS Lymphocytes 1.2 10^3/uL (1.0-4.8); ABS Monocytes 0.5 10^3/uL (0.0-0.9); ABS Neutrophils 4.6 10^3/uL (1.5-7.6); Eosinophil % 2.1 %; Hematocrit 26.1 % (35-45); Hemoglobin 8.7 g/dL (11.5-14.3); Lymphocyte % 18.3 %; Mean Corpuscular Hemoglobin 31.1 pg (27-33); Mean Corpuscular Hgb Conc 33.5 g/dL (31-36); Mean Corpuscular Volume 92.9 fL (80-97); Mean Platelet Volume 8.1 fL (7.5-11.2); Platelet Count 375 10^3/uL (150-450); Red Blood Count 2.81 10^6/uL (3.63-4.92); Red Cell Distribution Width 19.8 % (12-17); White Blood Count 6.6 10^3/uL (3.8-11.8)
[2023-04-16] MEDS: Brimonidine P 0.1%(NF) 1 DROP BTL BOTH EYES SCH ×3 (00:01→21:15)
[2023-04-16] MEDS: Cefepime 1 GM in Dextrose 1 GM/50 ML BAG IV SCH ×2 (00:09→13:23)
[2023-04-16 07:44] LABS: ABS Basophils 0.1 10^3/uL (0.0-0.1); ABS Eosinophils 0.2 10^3/uL (0.0-0.5); ABS Lymphocytes 1.5 10^3/uL (1.0-4.8); ABS Monocytes 0.6 10^3/uL (0.0-0.9); ABS Neutrophils 3.6 10^3/uL (1.5-7.6); ABS Nucleated RBC 0.01 10^3/ul; Eosinophil % 2.6 %; Hematocrit 24.8 % (35-45); Hemoglobin 8.1 g/dL (11.5-14.3); Lymphocyte % 24.8 %; Mean Corpuscular Hemoglobin 30.7 pg (27-33); Mean Corpuscular Hgb Conc 32.8 g/dL (31-36); Mean Corpuscular Volume 93.5 fL (80-97); Mean Platelet Volume 8.3 fL (7.5-11.2); Nucleated Red Blood Cells % 0.2 %/100WBC (0.0-0.8); Platelet Count 317 10^3/uL (150-450); Red Blood Count 2.65 10^6/uL (3.63-4.92); White Blood Count 5.9 10^3/uL (3.8-11.8)
[2023-04-16 08:05] LABS: Anion Gap 7 mmol/L (2-16); Blood Urea Nitrogen 38 mg/dL (6-24); CO2 Carbon Dioxide 24 mmol/L (22-32); Calcium 8.9 mg/dL (8.6-10.3); Chloride 108 mmol/L (101-111); Creatinine, Serum 2.81 mg/dL (0.51-0.95); Glucose 89 mg/dL (70-100); Sodium 139 mmol/L (135-145); eGFR CKD-EPI 16.9 (>60)
[2023-04-16] MEDS ORDERED: Pantoprazole VIAL 40 MG VIAL IV SCH (09:00)
[2023-04-16] MEDS: Aspirin EC 81 mg TAB.EC (enteric coated) PO SCH (10:21)
[2023-04-16 11:29] LABS: Magnesium 1.8 mg/dL (1.9-2.7); Potassium Redraw 4.1 mmol/L (3.5-5.0)
[2023-04-16] MEDS: Benzocaine/Menthol LOZ PO PRN (15:09)
[2023-04-17] MEDS: Cefepime 1 GM in Dextrose 1 GM/50 ML BAG IV SCH ×2 (01:33→13:24)
[2023-04-17] MEDS: Nystatin TOP POWDER 15 GM BTL TOPICAL SCH ×2 (07:44→14:12)
[2023-04-17 09:20] LABS: ABS Basophils 0.1 10^3/uL (0.0-0.1); ABS Eosinophils 0.1 10^3/uL (0.0-0.5); ABS Lymphocytes 1.2 10^3/uL (1.0-4.8); ABS Monocytes 0.7 10^3/uL (0.0-0.9); ABS Neutrophils 4.4 10^3/uL (1.5-7.6); ABS Nucleated RBC 0.01 10^3/ul; Eosinophil % 2.3 %; Hemoglobin 9.3 g/dL (11.5-14.3); Lymphocyte % 18.3 %; Mean Corpuscular Hemoglobin 30.7 pg (27-33); Mean Corpuscular Hgb Conc 33.1 g/dL (31-36); Mean Corpuscular Volume 92.7 fL (80-97); Nucleated Red Blood Cells % 0.1 %/100WBC (0.0-0.8); Platelet Count 345 10^3/uL (150-450); Red Blood Count 3.02 10^6/uL (3.63-4.92); Red Cell Distribution Width 19.6 % (12-17); White Blood Count 6.5 10^3/uL (3.8-11.8)
[2023-04-17 09:33] LABS: Calcium 9.1 mg/dL (8.6-10.3); Creatinine, Serum 2.68 mg/dL (0.51-0.95); Magnesium 1.7 mg/dL (1.9-2.7); Potassium 4.1 mmol/L (3.5-5.0); eGFR CKD-EPI 17.9 (>60)
[2023-04-17] MEDS: Aspirin EC 81 mg TAB.EC (enteric coated) PO SCH (10:03)
[2023-04-17] MEDS: Brimonidine P 0.1%(NF) 1 DROP BTL BOTH EYES SCH (10:04)
[2023-04-17 10:09] VITALS: BP 122/68
[2023-04-17] MEDS ORDERED: Magnesium Sulfate 2 gm BAG 2 GM/50 ML BAG IVPB ONE (10:28)
[2023-04-17] MEDS: Benzocaine/Menthol LOZ PO PRN (12:09)
== END 2023-04-17 14:38 | DRG 693 ==
LOC: EDHOLD 13:59 → ED 13:59 → SUATTDRO 23:41 → MEDTELE 04-15 00:51
PROVIDERS: ADMIT Hospitalist; ATTEND Hospitalist

== ENCOUNTER 2023-05-05 23:10 | Inpatient (IN) ==
[2023-05-06 01:03] LABS: ABS Lymphocytes 0.3 10^3/uL (1.0-4.8); ABS Monocytes 0.6 10^3/uL (0.0-0.9); ABS Neutrophils 11.7 10^3/uL (1.5-7.6); Hematocrit 28.9 % (35-45); Hemoglobin 9.6 g/dL (11.5-14.3); Lymphocyte % 2.7 %; Mean Corpuscular Hemoglobin 31.2 pg (27-33); Mean Corpuscular Hgb Conc 33.4 g/dL (31-36); Mean Corpuscular Volume 93.5 fL (80-97); Mean Platelet Volume 8.4 fL (7.5-11.2); Platelet Count 346 10^3/uL (150-450); Red Blood Count 3.09 10^6/uL (3.63-4.92); Red Cell Distribution Width 16.7 % (12-17); White Blood Count 12.7 10^3/uL (3.8-11.8)
[2023-05-06 01:23] LABS: Albumin 3.1 g/dL (3.2-5.2); Albumin/Globulin Ratio 0.9 (1-3); C Reactive Protein 81.79 mg/L (<8.01); Calcium 9.5 mg/dL (8.6-10.3); Creatinine, Serum 2.91 mg/dL (0.51-0.95); Globulin 3.6 g/dL (2-4); Potassium 5.2 mmol/L (3.5-5.0); Total Bilirubin 0.4 mg/dL (0.2-1.0); Total Protein 6.7 g/dL (6.4-8.9); eGFR CKD-EPI 16.2 (>60)
[2023-05-06 02:34] LABS: High Sensitivity Troponin 1 Hr 4 pg/mL (<15)
[2023-05-06 02:48] LABS: Urine Appearance Turbid; Urine Bilirubin Negative (Negative); Urine Blood Negative (Negative); Urine Color Yellow; Urine Glucose Negative (Negative); Urine Ketones Negative (Negative); Urine Nitrite Negative (Negative); Urine Protein 2+(100 mg/dL) (Negative); Urine Specific Gravity 1.013 (1.002-1.030); Urine Urobilinogen Negative (Negative)
[2023-05-06 03:06] LABS: Urine Bacteria Absent (Absent); Urine Red Blood Cell Trace(0-2/hpf) (Absent); Urine Squamous Epithelial Cell Present (Absent); Urine White Blood Cell 3+(>20/hpf) (Absent)
[2023-05-06] MEDS: Ondansetron 4 mg VIAL 2 MG/ML 2 ml VIAL IV ONE (03:48)
[2023-05-06] MEDS: Lactated Ringers 1000 ml BAG 1,000 ML IV ONE ×3 (06:30→13:03)
[2023-05-06] MEDS: Morphine 4 MG/ML VIAL (1 ml) IV ONE (08:02)
[2023-05-06 08:28] LABS: Calcium 9.3 mg/dL (8.6-10.3); Creatinine, Serum 2.93 mg/dL (0.51-0.95); eGFR CKD-EPI 16.1 (>60)
[2023-05-06] MEDS: cefTRIAXone 1 gm/50 mL D5W 1 GM/50 ML BAG IV SCH (11:08)
[2023-05-06] MEDS ORDERED: Ondansetron ODT 4 mg TAB 4 MG TAB SL PRN (13:07)
[2023-05-06] MEDS ORDERED: Dextrose 50% Syringe 50 ml 25 GM/50 ML SYRINGE IV PUSH PRN (13:40)
[2023-05-06] MEDS ORDERED: Ondansetron ODT 4 mg TAB 4 MG TAB PO PRN (13:57)
[2023-05-06 15:48] LABS: Magnesium 1.7 mg/dL (1.9-2.7)
[2023-05-06 16:03] LABS: TSH Ultra Thyroid Stim Horm 1.42 mcIU/mL (0.34-5.60)
[2023-05-06] MEDS: BRIMONIDINE P 0.1% BOTH EYES SCH (16:14)
[2023-05-06] MEDS: Nystatin TOP POWDER 15 GM BTL TOPICAL SCH (20:48)
[2023-05-07 07:11] LABS: ABS Eosinophils 0.3 10^3/uL (0.0-0.5); ABS Lymphocytes 1.5 10^3/uL (1.0-4.8); ABS Monocytes 0.7 10^3/uL (0.0-0.9); ABS Neutrophils 4.6 10^3/uL (1.5-7.6); Eosinophil % 4.2 %; Hematocrit 24.4 % (35-45); Hemoglobin 8.2 g/dL (11.5-14.3); Mean Corpuscular Hemoglobin 32.1 pg (27-33); Mean Corpuscular Hgb Conc 33.8 g/dL (31-36); Mean Corpuscular Volume 95.2 fL (80-97); Mean Platelet Volume 8.3 fL (7.5-11.2); Platelet Count 277 10^3/uL (150-450); Red Blood Count 2.56 10^6/uL (3.63-4.92); Red Cell Distribution Width 16.9 % (12-17); White Blood Count 7.1 10^3/uL (3.8-11.8)
[2023-05-07 07:27] LABS: Calcium 8.7 mg/dL (8.6-10.3); Creatinine, Serum 3.04 mg/dL (0.51-0.95); Magnesium 1.7 mg/dL (1.9-2.7); Phosphorus 5.1 mg/dL (2.5-5.0); Potassium 4.5 mmol/L (3.5-5.0); eGFR CKD-EPI 15.4 (>60)
[2023-05-07] MEDS: Magnesium Sulfate IV 1GM/100ML 1 GM/100 ML BAG IV SCH (09:39)
[2023-05-08 06:51] LABS: Hematocrit 24.4 % (35-45); Hemoglobin 8.2 g/dL (11.5-14.3); Mean Corpuscular Hemoglobin 31.9 pg (27-33); Mean Corpuscular Hgb Conc 33.5 g/dL (31-36); Mean Corpuscular Volume 95.2 fL (80-97); Mean Platelet Volume 8.3 fL (7.5-11.2); Platelet Count 272 10^3/uL (150-450); Red Blood Count 2.56 10^6/uL (3.63-4.92); Red Cell Distribution Width 16.7 % (12-17); White Blood Count 5.9 10^3/uL (3.8-11.8)
[2023-05-08 07:05] LABS: Albumin 2.8 g/dL (3.2-5.2); Albumin/Globulin Ratio 0.9 (1-3); Calcium 8.8 mg/dL (8.6-10.3); Creatinine, Serum 2.76 mg/dL (0.51-0.95); Globulin 3.2 g/dL (2-4); Magnesium 2.1 mg/dL (1.9-2.7); Potassium 4.5 mmol/L (3.5-5.0); Total Bilirubin 0.2 mg/dL (0.2-1.0); eGFR CKD-EPI 17.3 (>60)
[2023-05-08 09:43] LABS: Ferritin 82.9 ng/mL (11-307)
[2023-05-08 09:46] LABS: Folate 5.22 ng/mL (5.90-24.80)
[2023-05-08] MEDS: Polyethylene Glycol 3350 17 GM PACKET PO SCH (10:42)
[2023-05-08] MEDS: Mometasone/Formoter 100/5 MDI INH SCH (11:31)
[2023-05-09 07:04] LABS: Albumin/Globulin Ratio 0.9 (1-3); Calcium 9.2 mg/dL (8.6-10.3); Creatinine, Serum 2.47 mg/dL (0.51-0.95); Globulin 3.4 g/dL (2-4); Potassium 4.6 mmol/L (3.5-5.0); Total Bilirubin 0.2 mg/dL (0.2-1.0); Total Protein 6.4 g/dL (6.4-8.9); eGFR CKD-EPI 19.7 (>60)
[2023-05-09 07:07] LABS: ABS Eosinophils 0.1 10^3/uL (0.0-0.5); ABS Lymphocytes 1.8 10^3/uL (1.0-4.8); ABS Monocytes 0.5 10^3/uL (0.0-0.9); ABS Neutrophils 2.6 10^3/uL (1.5-7.6); ABS Nucleated RBC 0.01 10^3/ul; Eosinophil % 2.9 %; Hematocrit 27.9 % (35-45); Lymphocyte % 34.8 %; Mean Corpuscular Hemoglobin 31.3 pg (27-33); Mean Corpuscular Hgb Conc 32.2 g/dL (31-36); Mean Corpuscular Volume 97.1 fL (80-97); Mean Platelet Volume 8.2 fL (7.5-11.2); Nucleated Red Blood Cells % 0.1 %/100WBC (0.0-0.8); Platelet Count 295 10^3/uL (150-450); Red Blood Count 2.87 10^6/uL (3.63-4.92); Red Cell Distribution Width 16.4 % (12-17); White Blood Count 5.1 10^3/uL (3.8-11.8)
[2023-05-10 08:03] LABS: Hematocrit 27.2 % (35-45); Hemoglobin 9.1 g/dL (11.5-14.3); Mean Corpuscular Hemoglobin 31.4 pg (27-33); Mean Corpuscular Hgb Conc 33.3 g/dL (31-36); Mean Corpuscular Volume 94.3 fL (80-97); Mean Platelet Volume 8.1 fL (7.5-11.2); Platelet Count 326 10^3/uL (150-450); Red Blood Count 2.89 10^6/uL (3.63-4.92); Red Cell Distribution Width 16.2 % (12-17)
[2023-05-10 08:20] LABS: Albumin 3.2 g/dL (3.2-5.2); Albumin/Globulin Ratio 0.9 (1-3); Calcium 9.3 mg/dL (8.6-10.3); Creatinine, Serum 2.33 mg/dL (0.51-0.95); Globulin 3.5 g/dL (2-4); Potassium 4.8 mmol/L (3.5-5.0); Total Bilirubin 0.2 mg/dL (0.2-1.0); Total Protein 6.7 g/dL (6.4-8.9); eGFR CKD-EPI 21.2 (>60)
[2023-05-10] MEDS: Albuterol/Ipratropium NEB.SOL (2.5/0.5 MG) 3 ML NEB.SOLN INH PRN (10:30)
[2023-05-10] MEDS: Dextran 70/Hypromellose Tears Eye Drops 15 ml BTL (for Artificials Tears) BOTH EYES PRN (23:32)
[2023-05-11 06:48] LABS: Hematocrit 25.3 % (35-45); Hemoglobin 8.5 g/dL (11.5-14.3); Mean Corpuscular Hemoglobin 31.4 pg (27-33); Mean Corpuscular Hgb Conc 33.5 g/dL (31-36); Mean Corpuscular Volume 93.6 fL (80-97); Platelet Count 333 10^3/uL (150-450); Red Blood Count 2.71 10^6/uL (3.63-4.92); White Blood Count 7.3 10^3/uL (3.8-11.8)
[2023-05-11 06:57] LABS: Albumin/Globulin Ratio 0.9 (1-3); Calcium 9.5 mg/dL (8.6-10.3); Creatinine, Serum 2.26 mg/dL (0.51-0.95); Globulin 3.3 g/dL (2-4); Magnesium 1.6 mg/dL (1.9-2.7); Potassium 4.6 mmol/L (3.5-5.0); Total Bilirubin 0.2 mg/dL (0.2-1.0); Total Protein 6.3 g/dL (6.4-8.9); eGFR CKD-EPI 21.9 (>60)
[2023-05-11] MEDS: Magnesium Sulfate IV 1GM/100ML 1 GM/100 ML BAG IV ONE (10:21)
[2023-05-11 11:08] VITALS: BP 116/56
== END 2023-05-11 12:30 | DRG 871 ==
LOC: EDHOLD 23:10 → ED 23:10 → SUATTDRO 05-06 09:24 → MEDTELE 05-06 12:24 → SUATTDRO 05-09 10:28 → UNDODISIN 05-11 12:30
PROVIDERS: ADMIT Internal Medicine; ATTEND Internal Medicine

== ENCOUNTER 2023-07-09 08:59 | Inpatient (IN) ==
[2023-07-09] MEDS: Ondansetron 4 mg VIAL 2 MG/ML 2 ml VIAL IV ONE ×2 (09:47→14:34)
[2023-07-09] MEDS: Lactated Ringers 1000 ml BAG 1,000 ML IV ONE ×2 (09:47→12:13)
[2023-07-09] MEDS: Acetaminophen IV 1 GM/100ML 1,000 MG/100 ML BAG IV ONE ×2 (09:47→18:12)
[2023-07-09 10:12] LABS: ABS Basophils 0.1 10^3/uL (0.0-0.1); ABS Lymphocytes 0.6 10^3/uL (1.0-4.8); ABS Monocytes 0.6 10^3/uL (0.0-0.9); ABS Neutrophils 15.4 10^3/uL (1.5-7.6); Eosinophil % 0.1 %; Hematocrit 32.3 % (35-45); Hemoglobin 10.6 g/dL (11.5-14.3); Lymphocyte % 3.8 %; Mean Corpuscular Hemoglobin 29.7 pg (27-33); Mean Corpuscular Hgb Conc 32.9 g/dL (31-36); Mean Corpuscular Volume 90.2 fL (80-97); Mean Platelet Volume 8.1 fL (7.5-11.2); Platelet Count 359 10^3/uL (150-450); Red Blood Count 3.58 10^6/uL (3.63-4.92); Red Cell Distribution Width 15.2 % (12-17); White Blood Count 16.7 10^3/uL (3.8-11.8)
[2023-07-09 10:39] LABS: Albumin 3.6 g/dL (3.2-5.2); Albumin/Globulin Ratio 1.1 (1-3); C Reactive Protein 14.27 mg/L (<8.01); Calcium 9.6 mg/dL (8.6-10.3); Creatinine, Serum 3.54 mg/dL (0.51-0.95); Globulin 3.3 g/dL (2-4); Potassium 4.6 mmol/L (3.5-5.0); Total Bilirubin 0.3 mg/dL (0.2-1.0); Total Protein 6.9 g/dL (6.4-8.9); eGFR CKD-EPI 12.8 (>60)
[2023-07-09 13:33] LABS: Urine Appearance Extra Turbid; Urine Bilirubin Negative (Negative); Urine Blood 2+ (Negative); Urine Color Yellow; Urine Glucose Trace (Negative); Urine Ketones Negative (Negative); Urine Nitrite Negative (Negative); Urine Protein 1+ (>=30 mg/dL) (Negative); Urine Specific Gravity 1.016 (1.002-1.030); Urine Urobilinogen Negative (Negative)
[2023-07-09 13:41] LABS: Urine Bacteria 1+ /HPF (Absent); Urine Red Blood Cell 3+(>10/hpf) /HPF (0-Trace); Urine Squamous Epithelial Cell Present /HPF (Absent); Urine White Blood Cell 3+(>20/hpf) /HPF (0-Trace)
[2023-07-09] MEDS: Cefepime 1 GM in Dextrose 1 GM/50 ML BAG IV ONE (13:49)
[2023-07-09] MEDS ORDERED: fentaNYL 100 mcg/2 ml 50 MCG/ML VIAL ONE ×2 (15:24→16:58)
[2023-07-09] MEDS ORDERED: Famotidine IV 10 MG/ML 2 ml VIAL (20 mg) ONE (15:24)
[2023-07-09] MEDS ORDERED: Ondansetron 4 mg VIAL 2 MG/ML 2 ml VIAL ONE ×2 (15:24→16:28)
[2023-07-09] MEDS ORDERED: Lidocaine 2% JELLY 6 ML Topical TOPICAL ONE (15:50)
[2023-07-09] MEDS ORDERED: Iohexol 180 (CONTRAST) 10 ML SDV IV ONE (15:50)
[2023-07-09] MEDS ORDERED: Propofol 10 MG/ML 20 ML BTL ONE (15:51)
[2023-07-09] MEDS ORDERED: Lidocaine 2% PF 5 ML VIAL ONE (15:51)
[2023-07-09] MEDS ORDERED: Midazolam 2 mg/2 ml VIAL 1 mg/ml 2 ml VIAL (2 mg) ONE (15:53)
[2023-07-09] MEDS ORDERED: Naloxone 0.4 mg VIAL 0.4 mg/ml 1 ml VIAL IV PRN (16:41)
[2023-07-09] MEDS: fentaNYL 100 mcg/2 ml 50 MCG/ML VIAL IV PRN (16:58)
[2023-07-09] MEDS ORDERED: Zosyn per Pharmacy NOTE FOLLOW UP SCH (18:00)
[2023-07-09] MEDS ORDERED: Dextrose 50% Syringe 50 ml 25 GM/50 ML SYRINGE IV PUSH PRN (18:05)
[2023-07-09] MEDS ORDERED: Acetaminophen IV 1 GM/100ML 1,000 MG/100 ML BAG IV ONE (18:11)
[2023-07-09 18:34] LABS: TSH Ultra Thyroid Stim Horm 2.73 mcIU/mL (0.34-5.60)
[2023-07-09] MEDS: Nystatin TOP POWDER 15 GM BTL TOPICAL SCH (21:30)
[2023-07-09] MEDS: Mometasone/Formoter 100/5 MDI INH SCH (21:31)
[2023-07-09] MEDS: Piperacillin/Tazobac 3.375 BAG 3.375 GM/100 ML BAG IV ONE (21:31)
[2023-07-09] MEDS: Gentamicin ADULT 80 MG in NS 0.9% 100 ml BAG 100 ML IVPB ONE (22:40)
[2023-07-09] MEDS ORDERED: Lactated Ringers 1000 ml BAG 1,000 ML IV SCH (23:45)
[2023-07-10] MEDS: NS 0.9% 500 ml BAG 500 ML IV ONE (00:04)
[2023-07-10] MEDS: ZOSYN 3.375 GM Q12H per EXTENDED INFUSION IV SCH (01:27)
[2023-07-10 06:33] LABS: ABS Eosinophils 0.2 10^3/uL (0.0-0.5); ABS Lymphocytes 0.9 10^3/uL (1.0-4.8); ABS Monocytes 0.5 10^3/uL (0.0-0.9); ABS Neutrophils 7.2 10^3/uL (1.5-7.6); Eosinophil % 2.7 %; Hematocrit 28.2 % (35-45); Hemoglobin 9.3 g/dL (11.5-14.3); Lymphocyte % 10.3 %; Mean Corpuscular Hemoglobin 30.2 pg (27-33); Mean Corpuscular Hgb Conc 33.1 g/dL (31-36); Mean Corpuscular Volume 91.3 fL (80-97); Mean Platelet Volume 8.3 fL (7.5-11.2); Platelet Count 292 10^3/uL (150-450); Red Blood Count 3.09 10^6/uL (3.63-4.92); Red Cell Distribution Width 15.5 % (12-17); White Blood Count 8.9 10^3/uL (3.8-11.8)
[2023-07-10 06:40] LABS: Calcium 8.9 mg/dL (8.6-10.3); Creatinine, Serum 4.09 mg/dL (0.51-0.95); Potassium 4.7 mmol/L (3.5-5.0); eGFR CKD-EPI 10.8 (>60)
[2023-07-10] MEDS ORDERED: Polyethylene Glycol 3350 17 GM PACKET PO SCH (09:00)
[2023-07-10] MEDS: NS 0.9% 1000 ml BAG 1,000 ML IV ONE (12:42)
[2023-07-10] MEDS: Lactated Ringers 1000 ml BAG 1,000 ML IV ONE (13:00)
[2023-07-10 18:49] LABS: Calcium 8.5 mg/dL (8.6-10.3); Creatinine, Serum 3.95 mg/dL (0.51-0.95); Potassium 5.2 mmol/L (3.5-5.0); eGFR CKD-EPI 11.2 (>60)
[2023-07-10 22:29] LABS: Calcium 8.3 mg/dL (8.6-10.3); Creatinine, Serum 4.17 mg/dL (0.51-0.95); Potassium 4.9 mmol/L (3.5-5.0); eGFR CKD-EPI 10.5 (>60)
[2023-07-10 23:11] LABS: Urine Appearance Turbid; Urine Bilirubin Negative (Negative); Urine Blood 2+ (Negative); Urine Color Light-Yellow; Urine Glucose Negative (Negative); Urine Ketones Negative (Negative); Urine Nitrite Negative (Negative); Urine Protein 1+ (>=30 mg/dL) (Negative); Urine Specific Gravity 1.014 (1.002-1.030); Urine Urobilinogen Negative (Negative); Urine pH 5.5 (5.0-8.0)
[2023-07-10 23:17] LABS: Urine Bacteria 1+ /HPF (Absent); Urine Red Blood Cell 3+(>10/hpf) /HPF (0-Trace); Urine Squamous Epithelial Cell Present /HPF (Absent); Urine White Blood Cell 3+(>20/hpf) /HPF (0-Trace)
[2023-07-10] MEDS: Lactated Ringers 1000 ml BAG 1,000 ML IV SCH (23:23)
[2023-07-11] MEDS: ZOSYN 3.375 GM Q12H per EXTENDED INFUSION IV SCH (05:38)
[2023-07-11] MEDS: NS 0.9% 1000 ml BAG 1,000 ML IV ONE ×2 (05:38→17:45)
[2023-07-11] MEDS: NS 0.9% 1000 ml BAG 1,000 ML IV SCH (06:48)
[2023-07-11 06:49] LABS: ABS Eosinophils 0.2 10^3/uL (0.0-0.5); ABS Monocytes 0.5 10^3/uL (0.0-0.9); ABS Neutrophils 3.8 10^3/uL (1.5-7.6); Eosinophil % 2.9 %; Hematocrit 24.1 % (35-45); Hemoglobin 8.1 g/dL (11.5-14.3); Lymphocyte % 18.2 %; Mean Corpuscular Hemoglobin 30.5 pg (27-33); Mean Corpuscular Hgb Conc 33.6 g/dL (31-36); Mean Corpuscular Volume 90.9 fL (80-97); Nucleated Red Blood Cells % 0.1 %/100WBC (0.0-0.8); Platelet Count 231 10^3/uL (150-450); Red Blood Count 2.65 10^6/uL (3.63-4.92); Red Cell Distribution Width 15.5 % (12-17); White Blood Count 5.6 10^3/uL (3.8-11.8)
[2023-07-11 07:47] LABS: C Reactive Protein 77.37 mg/L (<8.01); Calcium 8.1 mg/dL (8.6-10.3); Creatinine, Serum 3.94 mg/dL (0.51-0.95); Magnesium 1.8 mg/dL (1.9-2.7); Potassium 4.7 mmol/L (3.5-5.0); eGFR CKD-EPI 11.3 (>60)
[2023-07-11] MEDS: Magnesium Sulfate 2 gm BAG 2 GM/50 ML BAG IVPB ONE (11:17)
[2023-07-11 15:42] LABS: Calcium 8.4 mg/dL (8.6-10.3); Creatinine, Serum 3.73 mg/dL (0.51-0.95); Magnesium 2.3 mg/dL (1.9-2.7); Potassium 5.3 mmol/L (3.5-5.0)
[2023-07-11] MEDS: SODIUM ZIRCONIUM CYCLOSILICATE 5 GM PACKET PO ONE (18:06)
[2023-07-12] MEDS: Morphine 2 MG/ML SYRINGE IV ONE (01:09)
[2023-07-12 05:43] LABS: Hematocrit 27.1 % (35-45); Mean Corpuscular Hemoglobin 30.3 pg (27-33); Mean Corpuscular Hgb Conc 33.4 g/dL (31-36); Mean Corpuscular Volume 90.8 fL (80-97); Platelet Count 266 10^3/uL (150-450); Red Blood Count 2.98 10^6/uL (3.63-4.92); Red Cell Distribution Width 15.4 % (12-17); White Blood Count 5.8 10^3/uL (3.8-11.8)
[2023-07-12] MEDS: HYDROmorphone 0.5 MG/0.5 ML SYRINGE IV ONE (06:06)
[2023-07-12 06:25] LABS: Calcium 8.6 mg/dL (8.6-10.3); Creatinine, Serum 3.72 mg/dL (0.51-0.95); Phosphorus 4.8 mg/dL (2.5-5.0); Potassium 4.9 mmol/L (3.5-5.0); eGFR CKD-EPI 12.1 (>60)
[2023-07-12] MEDS: Lactated Ringers 1000 ml BAG 1,000 ML IV ONE ×2 (10:29→16:34)
[2023-07-12] MEDS ORDERED: Vancomycin per Pharmacy 1 EA NOTE FOLLOW UP PRN (13:40)
[2023-07-12] MEDS: Vancomycin 750 MG in NS 0.9% 250 ml 250 ML IVPB ONE (14:33)
[2023-07-12 15:52] LABS: Calcium 8.6 mg/dL (8.6-10.3); Creatinine, Serum 3.51 mg/dL (0.51-0.95); Potassium 4.8 mmol/L (3.5-5.0); eGFR CKD-EPI 12.9 (>60)
[2023-07-12] MEDS: Cefepime 1 GM in Dextrose 1 GM/50 ML BAG IV SCH (16:36)
[2023-07-12 19:40] LABS: Calprotectin 384 mcg/g
[2023-07-13] MEDS: Ondansetron 4 mg VIAL 2 MG/ML 2 ml VIAL IV PRN (05:47)
[2023-07-13 05:49] LABS: Hematocrit 29.9 % (35-45); Mean Corpuscular Hemoglobin 30.3 pg (27-33); Mean Corpuscular Hgb Conc 33.5 g/dL (31-36); Mean Corpuscular Volume 90.5 fL (80-97); Mean Platelet Volume 8.1 fL (7.5-11.2); Platelet Count 302 10^3/uL (150-450); Red Blood Count 3.31 10^6/uL (3.63-4.92); Red Cell Distribution Width 15.7 % (12-17)
[2023-07-13 06:01] LABS: Creatinine, Serum 3.17 mg/dL (0.51-0.95); Magnesium 1.9 mg/dL (1.9-2.7); Phosphorus 4.2 mg/dL (2.5-5.0); Potassium 4.8 mmol/L (3.5-5.0); Vancomycin Random 7.3 mcg/mL; eGFR CKD-EPI 14.6 (>60)
[2023-07-13] MEDS: Vancomycin 750 MG in NS 0.9% 250 ML IVPB ONE (09:52)
[2023-07-13] MEDS: Magnesium Sulfate IV 1GM/100ML 1 GM/100 ML BAG IV ONE (11:39)
[2023-07-13] MEDS: Vancomycin Random Level NOTE FOLLOW UP ONE (12:02)
[2023-07-13] MEDS ORDERED: Bismuth Subsalicylate (BTL) 525 MG/30 ML (BULK BTL) PO PRN (15:48)
[2023-07-14 07:00] LABS: Calcium 8.8 mg/dL (8.6-10.3); Creatinine, Serum 3.03 mg/dL (0.51-0.95); Magnesium 1.9 mg/dL (1.9-2.7); Potassium 4.5 mmol/L (3.5-5.0); Vancomycin Random 10.8 mcg/mL; eGFR CKD-EPI 15.4 (>60)
[2023-07-14] MEDS: Magnesium Sulfate 2 gm BAG 2 GM/50 ML BAG IVPB ONE (09:50)
[2023-07-14] MEDS: Vancomycin Random Level NOTE FOLLOW UP ONE (10:26)
[2023-07-14 10:33] VITALS: BP 105/59
[2023-07-14] MEDS: Vancomycin 500 MG in NS 0.9% 250 ML IVPB ONE (11:20)
[2023-07-15] MEDS ORDERED: Vancomycin Random Level NOTE FOLLOW UP ONE (06:00)
== END 2023-07-14 14:36 | DRG 872 ==
LOC: ED 08:59 → EDHOLD 14:20 → SUATTDRO 14:20 → AA 14:38 → SSU 14:49
PROVIDERS: ADMIT Hospitalist; ATTEND Student in an Organized Health Care Education/Training Program

== ENCOUNTER 2023-10-20 09:20 | Inpatient (IN) ==
[2023-10-20] MEDS: fentaNYL 100 mcg/2 ml 50 MCG/ML VIAL IV SLOW PU ONE (11:01)
[2023-10-20] MEDS: Prochlorperazine 5 mg/ml 2 ml VIAL (10 mg) IV ONE (11:02)
[2023-10-20 12:00] LABS: ABS Basophils 0.1 10^3/uL (0.0-0.1); ABS Eosinophils 0.3 10^3/uL (0.0-0.5); ABS Lymphocytes 1.7 10^3/uL (1.0-4.8); ABS Monocytes 0.6 10^3/uL (0.0-0.9); ABS Neutrophils 7.7 10^3/uL (1.5-7.6); ABS Nucleated RBC 0.04 10^3/ul; Eosinophil % 2.9 %; Hematocrit 35.9 % (35-45); Hemoglobin 11.6 g/dL (11.5-14.3); Lymphocyte % 16.2 %; Mean Corpuscular Hemoglobin 28.9 pg (27-33); Mean Corpuscular Hgb Conc 32.3 g/dL (31-36); Mean Corpuscular Volume 89.5 fL (80-97); Nucleated Red Blood Cells % 0.3 %/100WBC (0.0-0.8); Platelet Count 239 10^3/uL (150-450); Red Blood Count 4.01 10^6/uL (3.63-4.92); White Blood Count 10.4 10^3/uL (3.8-11.8)
[2023-10-20 12:19] LABS: Calcium 9.5 mg/dL (8.6-10.3); Creatinine, Serum 2.19 mg/dL (0.51-0.95); eGFR CKD-EPI 22.8 (>60)
[2023-10-20 12:24] LABS: Urine Appearance Extra Turbid; Urine Bilirubin Negative (Negative); Urine Blood 2+ (Negative); Urine Glucose Negative (Negative); Urine Ketones Negative (Negative); Urine Nitrite 2+ (Negative); Urine Protein 1+ (>=30 mg/dL) (Negative); Urine Specific Gravity 1.015 (1.002-1.030); Urine Urobilinogen Negative (Negative); Urine pH 6.5 (5.0-8.0)
[2023-10-20 12:31] LABS: Urine Bacteria 2+ /HPF (Absent); Urine Red Blood Cell 3+(>10/hpf) /HPF (0-Trace); Urine Squamous Epithelial Cell Present /HPF (Absent); Urine White Blood Cell 3+(>20/hpf) /HPF (0-Trace)
[2023-10-20] MEDS: Morphine 2 MG/ML SYRINGE IV ONE (13:13)
[2023-10-20] MEDS: NS 0.9% 1000 ml BAG 1,000 ML IV SCH (13:14)
[2023-10-20 13:15] LABS: Urine Color Light-Yellow
[2023-10-20] MEDS ORDERED: Dextrose 50% Syringe 50 ml 25 GM/50 ML SYRINGE IV PUSH PRN (14:51)
[2023-10-20 15:02] LABS: Urine Appearance Turbid; Urine Bilirubin Negative (Negative); Urine Blood 2+ (Negative); Urine Color Light-Yellow; Urine Glucose Negative (Negative); Urine Ketones Negative (Negative); Urine Nitrite 2+ (Negative); Urine Protein 1+ (>=30 mg/dL) (Negative); Urine Specific Gravity 1.014 (1.002-1.030); Urine Urobilinogen Negative (Negative); Urine pH 6.5 (5.0-8.0)
[2023-10-20 15:20] LABS: Urine Bacteria 1+ /HPF (Absent); Urine Red Blood Cell 3+(>10/hpf) /HPF (0-Trace); Urine Squamous Epithelial Cell Present /HPF (Absent); Urine White Blood Cell 3+(>20/hpf) /HPF (0-Trace)
[2023-10-20] MEDS ORDERED: Zosyn per Pharmacy NOTE FOLLOW UP SCH (16:00)
[2023-10-20] MEDS: Piperacillin/Tazobac 3.375 BAG 3.375 GM/100 ML BAG IV ONE (16:32)
[2023-10-20] MEDS: Ammonium Lactate 12% 1 APPLIC TUBE TOPICAL SCH (20:06)
[2023-10-20] MEDS: ZOSYN 3.375 GM Q8H per EXTENDED INFUSION IV SCH (20:07)
[2023-10-20] MEDS: Mometasone/Formoter 100/5 MDI INH SCH (20:10)
[2023-10-20] MEDS: CMCS:Brimonidine P 0.1%(NF) 1 DROP BTL BOTH EYES SCH (20:11)
[2023-10-21 06:29] LABS: ABS Eosinophils 0.2 10^3/uL (0.0-0.5); ABS Lymphocytes 1.2 10^3/uL (1.0-4.8); ABS Monocytes 0.7 10^3/uL (0.0-0.9); Eosinophil % 3.4 %; Hematocrit 32.5 % (35-45); Hemoglobin 10.5 g/dL (11.5-14.3); Lymphocyte % 16.9 %; Mean Corpuscular Hgb Conc 32.3 g/dL (31-36); Mean Corpuscular Volume 89.7 fL (80-97); Mean Platelet Volume 8.3 fL (7.5-11.2); Platelet Count 275 10^3/uL (150-450); Red Blood Count 3.63 10^6/uL (3.63-4.92); Red Cell Distribution Width 16.6 % (12-17); White Blood Count 7.3 10^3/uL (3.8-11.8)
[2023-10-21 06:36] LABS: INR 1.12 (0.83-1.13)
[2023-10-21 06:47] LABS: Calcium 8.7 mg/dL (8.6-10.3); Creatinine, Serum 2.27 mg/dL (0.51-0.95); Magnesium 1.9 mg/dL (1.9-2.7); Potassium 4.7 mmol/L (3.5-5.0); eGFR CKD-EPI 21.8 (>60)
[2023-10-21] MEDS: Polyethylene Glycol 3350 17 GM PACKET PO PRN (20:33)
[2023-10-22 00:01] LABS: Calcium 8.4 mg/dL (8.6-10.3); Creatinine, Serum 2.55 mg/dL (0.51-0.95); Potassium 4.8 mmol/L (3.5-5.0)
[2023-10-22 00:33] LABS: ABS Eosinophils 0.2 10^3/uL (0.0-0.5); ABS Lymphocytes 1.4 10^3/uL (1.0-4.8); ABS Monocytes 0.8 10^3/uL (0.0-0.9); ABS Neutrophils 4.3 10^3/uL (1.5-7.6); ABS Nucleated RBC 0.01 10^3/ul; Eosinophil % 3.4 %; Hemoglobin 10.6 g/dL (11.5-14.3); Lymphocyte % 20.4 %; Mean Corpuscular Hemoglobin 29.1 pg (27-33); Mean Corpuscular Hgb Conc 32.2 g/dL (31-36); Mean Corpuscular Volume 90.4 fL (80-97); Mean Platelet Volume 8.1 fL (7.5-11.2); Nucleated Red Blood Cells % 0.1 %/100WBC (0.0-0.8); Platelet Count 272 10^3/uL (150-450); Red Blood Count 3.65 10^6/uL (3.63-4.92); Red Cell Distribution Width 16.9 % (12-17); White Blood Count 6.8 10^3/uL (3.8-11.8)
[2023-10-23 08:35] LABS: ABS Lymphocytes 0.6 10^3/uL (1.0-4.8); ABS Monocytes 0.2 10^3/uL (0.0-0.9); ABS Neutrophils 8.6 10^3/uL (1.5-7.6); Hemoglobin 11.8 g/dL (11.5-14.3); Lymphocyte % 6.3 %; Mean Corpuscular Hgb Conc 32.6 g/dL (31-36); Mean Corpuscular Volume 88.8 fL (80-97); Mean Platelet Volume 8.2 fL (7.5-11.2); Platelet Count 305 10^3/uL (150-450); Red Blood Count 4.06 10^6/uL (3.63-4.92); Red Cell Distribution Width 16.7 % (12-17); White Blood Count 9.4 10^3/uL (3.8-11.8)
[2023-10-23 09:21] LABS: Calcium 9.2 mg/dL (8.6-10.3); Creatinine, Serum 3.03 mg/dL (0.51-0.95); Potassium 4.5 mmol/L (3.5-5.0); eGFR CKD-EPI 15.4 (>60)
[2023-10-23] MEDS: Ondansetron 4 mg VIAL 2 MG/ML 2 ml VIAL IV PRN (11:10)
[2023-10-24 08:06] LABS: Hemoglobin 10.6 g/dL (11.5-14.3); Mean Corpuscular Hemoglobin 29.1 pg (27-33); Mean Corpuscular Volume 90.7 fL (80-97); Red Blood Count 3.64 10^6/uL (3.63-4.92); Red Cell Distribution Width 16.9 % (12-17)
[2023-10-24 08:55] LABS: ABS Lymphocytes 0.8 10^3/uL (1.0-4.8); ABS Monocytes 1.1 10^3/uL (0.0-0.9); ABS Neutrophils 12.1 10^3/uL (1.5-7.6); Lymphocyte % 5.5 %; Mean Platelet Volume 8.3 fL (7.5-11.2); Platelet Count 270 10^3/uL (150-450)
[2023-10-24 09:36] LABS: Calcium 8.8 mg/dL (8.6-10.3); Creatinine, Serum 4.65 mg/dL (0.51-0.95); Magnesium 2.1 mg/dL (1.9-2.7); Potassium 4.8 mmol/L (3.5-5.0); eGFR CKD-EPI 9.2 (>60)
[2023-10-24] MEDS ORDERED: Naloxone 0.4 mg VIAL 0.4 mg/ml 1 ml VIAL IV PRN (10:22)
[2023-10-24] MEDS ORDERED: fentaNYL 100 mcg/2 ml 50 MCG/ML VIAL IV PRN (10:22)
[2023-10-24] MEDS ORDERED: Iohexol 180 (CONTRAST) 10 ML SDV IV ONE (12:19)
[2023-10-24] MEDS ORDERED: Lidocaine 2% JELLY 10 ML JELLY ONE (12:20)
[2023-10-24] MEDS ORDERED: Propofol 10 MG/ML 20 ML BTL ONE (12:24)
[2023-10-24] MEDS ORDERED: fentaNYL 100 mcg/2 ml 50 MCG/ML VIAL ONE (12:24)
[2023-10-24] MEDS ORDERED: Lidocaine 2% PF 5 ML VIAL ONE (12:24)
[2023-10-24] MEDS ORDERED: Phenylephrine 40 mcg/mL 10mL (400mcg) SYRINGE ONE (12:55)
[2023-10-24] MEDS: ZOSYN 3.375 GM Q8H per EXTENDED INFUSION IV SCH (23:58)
[2023-10-25 07:23] LABS: ABS Eosinophils 0.1 10^3/uL (0.0-0.5); ABS Lymphocytes 1.2 10^3/uL (1.0-4.8); ABS Monocytes 0.6 10^3/uL (0.0-0.9); ABS Neutrophils 7.4 10^3/uL (1.5-7.6); ABS Nucleated RBC 0.01 10^3/ul; Eosinophil % 0.7 %; Hematocrit 33.5 % (35-45); Hemoglobin 10.9 g/dL (11.5-14.3); Lymphocyte % 12.9 %; Mean Corpuscular Hemoglobin 29.6 pg (27-33); Mean Corpuscular Hgb Conc 32.6 g/dL (31-36); Mean Platelet Volume 8.1 fL (7.5-11.2); Nucleated Red Blood Cells % 0.1 %/100WBC (0.0-0.8); Platelet Count 243 10^3/uL (150-450); Red Blood Count 3.69 10^6/uL (3.63-4.92); Red Cell Distribution Width 16.9 % (12-17); White Blood Count 9.2 10^3/uL (3.8-11.8)
[2023-10-25 10:11] LABS: Calcium 8.4 mg/dL (8.6-10.3); Creatinine, Serum 4.74 mg/dL (0.51-0.95); Potassium 4.9 mmol/L (3.5-5.0)
[2023-10-25] MEDS: NS 0.9% 1000 ml BAG 1,000 ML IV SCH (13:56)
[2023-10-26 06:01] LABS: Calcium 8.7 mg/dL (8.6-10.3); Creatinine, Serum 4.06 mg/dL (0.51-0.95); Potassium 4.5 mmol/L (3.5-5.0); eGFR CKD-EPI 10.9 (>60)
[2023-10-26] MEDS: NS 0.9% 1000 ml BAG 1,000 ML IV SCH (09:12)
[2023-10-27 07:35] LABS: ABS Basophils 0.1 10^3/uL (0.0-0.1); ABS Eosinophils 0.1 10^3/uL (0.0-0.5); ABS Lymphocytes 1.2 10^3/uL (1.0-4.8); ABS Monocytes 0.6 10^3/uL (0.0-0.9); ABS Neutrophils 7.4 10^3/uL (1.5-7.6); ABS Nucleated RBC 0.01 10^3/ul; Eosinophil % 0.8 %; Hematocrit 32.4 % (35-45); Hemoglobin 10.6 g/dL (11.5-14.3); Lymphocyte % 13.2 %; Mean Corpuscular Hemoglobin 29.3 pg (27-33); Mean Corpuscular Hgb Conc 32.7 g/dL (31-36); Mean Corpuscular Volume 89.7 fL (80-97); Mean Platelet Volume 8.2 fL (7.5-11.2); Nucleated Red Blood Cells % 0.1 %/100WBC (0.0-0.8); Platelet Count 267 10^3/uL (150-450); Red Blood Count 3.61 10^6/uL (3.63-4.92); Red Cell Distribution Width 16.4 % (12-17); White Blood Count 9.3 10^3/uL (3.8-11.8)
[2023-10-27 07:54] LABS: Calcium 8.8 mg/dL (8.6-10.3); Creatinine, Serum 3.2 mg/dL (0.51-0.95); Potassium 4.5 mmol/L (3.5-5.0); eGFR CKD-EPI 14.5 (>60)
[2023-10-27 10:01] VITALS: BP 124/77
[2023-10-27 12:19] LABS: Albumin/Globulin Ratio 1.1 (1-3); Globulin 2.8 g/dL (2-4); Indirect Bilirubin 0.2 mg/dL (0.3-1.0); Total Bilirubin 0.2 mg/dL (0.2-1.0); Total Protein 5.8 g/dL (6.4-8.9)
== END 2023-10-27 13:40 | DRG 661 ==
LOC: ED 09:20 → EDHOLD 09:20 → SSU 16:08 → SUATTDRO 10-22 12:00
PROVIDERS: ADMIT Hospitalist; ATTEND Internal Medicine

== ENCOUNTER 2024-04-27 10:17 | Inpatient (IN) ==
[2024-04-27 12:04] LABS: Hematocrit 41.7 % (35-45); Hemoglobin 13.2 g/dL (11.5-14.3); Mean Corpuscular Hemoglobin 27.6 pg (27-33); Mean Corpuscular Hgb Conc 31.6 g/dL (31-36); Mean Corpuscular Volume 87.5 fL (80-97); Red Blood Count 4.77 10^6/uL (3.63-4.92); Red Cell Distribution Width 16.6 % (12-17); White Blood Count 11.7 10^3/uL (3.8-11.8)
[2024-04-27 12:21] LABS: High Sens Troponin Baseline 3 pg/mL (<15)
[2024-04-27 12:31] LABS: ABS Eosinophils 0.1 10^3/uL (0.0-0.5); ABS Monocytes 0.7 10^3/uL (0.0-0.9); ABS Neutrophils 9.9 10^3/uL (1.5-7.6); ABS Nucleated RBC 0.01 10^3/ul; Eosinophil % 0.9 %; Lymphocyte % 8.1 %; Mean Platelet Volume 8.4 fL (7.5-11.2); Nucleated Red Blood Cells % 0.1 %/100WBC (0.0-0.8); Platelet Count 253 10^3/uL (150-450)
[2024-04-27 12:51] LABS: ALT 12 U/L (7-52); Albumin/Globulin Ratio 1.2 (1-3); Alkaline Phosphatase 133 U/L (35-149); Anion Gap 9 mmol/L (2-16); Blood Urea Nitrogen 65 mg/dL (6-24); CO2 Carbon Dioxide 24 mmol/L (22-32); Calcium 9.8 mg/dL (8.6-10.3); Chloride 109 mmol/L (101-111); Creatinine, Serum 2.16 mg/dL (0.51-0.95); Globulin 3.4 g/dL (2-4); Glucose 131 mg/dL (70-100); Sodium 142 mmol/L (135-145); TSH Ultra Thyroid Stim Horm 2.28 mcIU/mL (0.34-5.60); Total Bilirubin 0.5 mg/dL (0.2-1.0); Total Protein 7.4 g/dL (6.4-8.9)
[2024-04-27 14:36] LABS: Potassium Redraw 4.5 mmol/L (3.5-5.0)
[2024-04-27 14:40] LABS: Urine Appearance Turbid; Urine Bilirubin Negative (Negative); Urine Blood 1+ (Negative); Urine Color Light-Yellow; Urine Glucose Negative (Negative); Urine Ketones Negative (Negative); Urine Nitrite 1+ (Negative); Urine Protein Trace (Negative); Urine Specific Gravity 1.012 (1.002-1.030); Urine Urobilinogen Negative (Negative)
[2024-04-27 15:03] LABS: Urine Bacteria 1+ /HPF (Absent); Urine Red Blood Cell 3+(>10/hpf) /HPF (0-Trace); Urine White Blood Cell 3+(>20/hpf) /HPF (0-Trace)
[2024-04-27] MEDS: cefTRIAXone 2 gm/50 mL D5W 2 GM/50 ML BAG IV ONE (15:32)
[2024-04-27] MEDS: Morphine 4 MG/ML VIAL (1 ml) IV ONE (15:32)
[2024-04-27] MEDS: Ondansetron 4 mg VIAL 2 MG/ML 2 ml VIAL IV ONE (15:32)
[2024-04-27 17:56] LABS: C Reactive Protein 8.33 mg/L (<8.01)
[2024-04-27] MEDS: Lactated Ringers 1000 ml BAG 1,000 ML IV SCH (18:27)
[2024-04-27] MEDS: Nystatin TOP POWDER 15 GM BTL TOPICAL SCH (21:27)
[2024-04-27] MEDS: PTO:Brimonidine P 0.1%(NF) 1 DROP BTL BOTH EYES SCH (21:28)
[2024-04-28] MEDS: fentaNYL 100 mcg/2 ml 50 MCG/ML VIAL IV SLOW PU ONE (03:03)
[2024-04-28] MEDS ORDERED: Ondansetron 4 mg VIAL 2 MG/ML 2 ml VIAL IV PRN (03:17)
[2024-04-28 06:24] LABS: Hematocrit 37.8 % (35-45); Hemoglobin 12.3 g/dL (11.5-14.3); Mean Corpuscular Hemoglobin 28.1 pg (27-33); Mean Corpuscular Hgb Conc 32.6 g/dL (31-36); Mean Corpuscular Volume 86.3 fL (80-97); Red Blood Count 4.38 10^6/uL (3.63-4.92); Red Cell Distribution Width 16.4 % (12-17); White Blood Count 13.3 10^3/uL (3.8-11.8)
[2024-04-28 06:41] LABS: Albumin 3.3 g/dL (3.5-5.7); Albumin/Globulin Ratio 1.1 (1-3); C Reactive Protein 13.37 mg/L (<8.01); Calcium 8.9 mg/dL (8.6-10.3); Creatinine, Serum 1.98 mg/dL (0.51-0.95); Globulin 2.9 g/dL (2-4); Magnesium 1.7 mg/dL (1.9-2.7); Potassium 4.3 mmol/L (3.5-5.0); Total Bilirubin 0.5 mg/dL (0.2-1.0); Total Protein 6.2 g/dL (6.4-8.9); eGFR CKD-EPI 25.6 (>60)
[2024-04-28] MEDS: Morphine 2 MG/ML SYRINGE IV PRN (06:42)
[2024-04-28 07:33] LABS: ABS Basophils 0.1 10^3/uL (0.0-0.1); ABS Eosinophils 0.1 10^3/uL (0.0-0.5); ABS Lymphocytes 0.7 10^3/uL (1.0-4.8); ABS Monocytes 0.9 10^3/uL (0.0-0.9); ABS Neutrophils 11.6 10^3/uL (1.5-7.6); Eosinophil % 0.8 %; Lymphocyte % 5.2 %; Mean Platelet Volume 8.8 fL (7.5-11.2); Platelet Count 232 10^3/uL (150-450)
[2024-04-28] MEDS: Magnesium Sulfate 2 gm BAG 2 GM/50 ML BAG IVPB ONE (09:26)
[2024-04-28] MEDS: Aspirin EC 81 mg TAB.EC (enteric coated) PO SCH (09:26)
[2024-04-28] MEDS: Magnesium Sulfate IV 1GM/100ML 1 GM/100 ML BAG IV ONE (10:33)
[2024-04-28] MEDS ORDERED: cefTRIAXone 2 gm/50 mL D5W 2 GM/50 ML BAG IV SCH (19:30)
[2024-04-28] MEDS: cefTRIAXone 1 gm/50 mL D5W 1 GM/50 ML BAG IV SCH (19:43)
[2024-04-28] MEDS: Clotrimazole 1% VAGINAL CREAM 45 GM VAGINAL SCH (21:47)
[2024-04-29 05:55] LABS: ABS Eosinophils 0.2 10^3/uL (0.0-0.5); ABS Lymphocytes 2.2 10^3/uL (1.0-4.8); ABS Monocytes 0.8 10^3/uL (0.0-0.9); ABS Neutrophils 4.3 10^3/uL (1.5-7.6); ABS Nucleated RBC 0.01 10^3/ul; Eosinophil % 2.2 %; Hematocrit 38.9 % (35-45); Hemoglobin 12.4 g/dL (11.5-14.3); Lymphocyte % 28.7 %; Mean Corpuscular Hgb Conc 31.9 g/dL (31-36); Mean Corpuscular Volume 87.7 fL (80-97); Mean Platelet Volume 8.3 fL (7.5-11.2); Nucleated Red Blood Cells % 0.1 %/100WBC (0.0-0.8); Platelet Count 215 10^3/uL (150-450); Red Blood Count 4.44 10^6/uL (3.63-4.92); Red Cell Distribution Width 16.5 % (12-17); White Blood Count 7.5 10^3/uL (3.8-11.8)
[2024-04-29 06:08] LABS: Albumin 3.2 g/dL (3.5-5.7); Albumin/Globulin Ratio 1.1 (1-3); Calcium 8.7 mg/dL (8.6-10.3); Creatinine, Serum 2.32 mg/dL (0.51-0.95); Magnesium 2.4 mg/dL (1.9-2.7); Potassium 4.5 mmol/L (3.5-5.0); Total Bilirubin 0.4 mg/dL (0.2-1.0); Total Protein 6.2 g/dL (6.4-8.9); eGFR CKD-EPI 21.1 (>60)
[2024-04-29 10:15] LABS: C Reactive Protein 44.36 mg/L (<8.01)
[2024-04-30 06:01] LABS: ABS Basophils 0.1 10^3/uL (0.0-0.1); ABS Eosinophils 0.1 10^3/uL (0.0-0.5); ABS Lymphocytes 1.9 10^3/uL (1.0-4.8); ABS Monocytes 0.8 10^3/uL (0.0-0.9); ABS Neutrophils 4.3 10^3/uL (1.5-7.6); ABS Nucleated RBC 0.01 10^3/ul; Eosinophil % 1.8 %; Hemoglobin 10.9 g/dL (11.5-14.3); Lymphocyte % 26.6 %; Mean Corpuscular Hemoglobin 28.4 pg (27-33); Mean Corpuscular Hgb Conc 33.1 g/dL (31-36); Mean Corpuscular Volume 85.8 fL (80-97); Mean Platelet Volume 8.4 fL (7.5-11.2); Nucleated Red Blood Cells % 0.1 %/100WBC (0.0-0.8); Platelet Count 191 10^3/uL (150-450); Red Blood Count 3.85 10^6/uL (3.63-4.92); White Blood Count 7.3 10^3/uL (3.8-11.8)
[2024-04-30 06:21] LABS: Calcium 8.3 mg/dL (8.6-10.3); Creatinine, Serum 2.27 mg/dL (0.51-0.95); Magnesium 2.1 mg/dL (1.9-2.7); Potassium 4.3 mmol/L (3.5-5.0); eGFR CKD-EPI 21.7 (>60)
[2024-04-30 06:42] LABS: C Reactive Protein 41.37 mg/L (<8.01)
[2024-04-30] MEDS ORDERED: Dextrose 50% Syringe 50 ml 25 GM/50 ML SYRINGE IV PUSH PRN (11:19)
[2024-04-30 17:33] VITALS: BP 127/88
[2024-04-30] MEDS ORDERED: Miconazole VAG 200 mg SUPP VAGINAL SCH (21:00)
== END 2024-04-30 18:15 | disposition home or self-care (01) | DRG 690 ==
LOC: ED 10:17 → EDHOLD 10:17 → OBSVTOIN 17:51 → SUATTDRO 17:51 → MED 22:16
PROVIDERS: ADMIT Internal Medicine; ATTEND Internal Medicine